=== PATIENT | male | born 1970 | race Caucasian/White ===

== ENCOUNTER 2020-11-06 18:34 | Inpatient (IN) | payer OTHER, SELFPAY ==
[2020-11-06 19:05] VITALS: BP 115/80; PULSE 104; RESP 18; TEMP 37.3; O2SAT 96; BMI 29.5
--- NOTE | 2020-11-06 20:11 | PC.NURSE ---
PT STATES 10MG LIQUID METHADONE ONCE PER DAY. PT GETS 5 TAKE HOMES PER WEEK FROM [facility]PT DOES HAVE METHADONE W/HIM
[2020-11-06 20:35] LABS: Glucose Urine UA NEG (NEG); Leukocyte Esterase Urine NEG (NEG); Nitrite Urine NEG (NEG); PH 7.5 (5.0-8.0); Urine Blood NEG (NEG); Urine Ketones NEG (NEG); Urine Protein NEG (NEG-TRACE)
[2020-11-06 20:36] LABS: Appearance Urine CLEAR; Color Urine YELLOW
--- NOTE | 2020-11-06 20:52 | ED_ITS ---
HPI - Psych General Chief Complaint: Psychiatric Symptoms Stated Complaint: depression Source: patient Mode of arrival: ambulatory History of Present Illness HPI Narrative: 50-year-old male with significant psychiatric history and substance abuse presents with suicidal ideation and severe depression. MD complaint: suicidal ideation, feels depressed and substance abuse Onset (ago): unknown Duration: constant History of same: Yes Relieving factors: none Exacerbating factors: drug use Context: recent drug abuse Associated psychiatric symptoms: depression and suicidal ideation Associated symptoms: denies other symptoms If self harm: admits thoughts of self harm Related Data Home Medications Medication Instructions Recorded Confirmed amitriptyline 1 tab PO BEDTIME 11/06/20 11/06/20 bupropion HCl 1 tab PO DAILY 11/06/20 11/06/20 clonazepam 0.5 mg PO BID 11/06/20 11/06/20 methadone 10 mg PO DAILY 11/06/20 11/06/20 olanzapine 1 tab PO BEDTIME 11/06/20 11/06/20 Allergies Allergy/AdvReac Type Severity Reaction Status Date / Time No Known Allergies Allergy Unverified 02/26/20 14:38 [No Known Allergies*] Review of Systems Review of Systems: Constitutional: No Fever, No Chills ENT/Mouth: No Ear Pain, No Nasal Congestion, No sore throat Eyes: No Eye Pain, No Swelling, No Redness Cardiovascular: No Chest Pain, No SOB Respiratory: No Cough, No Sputum, No Dyspnea Gastrointestinal: No Nausea, No Vomiting, No Diarrhea, No Hematochezia, No Melena Genitourinary: No Dysuria, No Urinary Frequency, No Hematuria Musculoskeletal: No Myalgias Skin: No Skin Lesions, No rash Neuro: No Weakness, No Numbness, No Paresthesias, No Dizziness, No Headache Psych: positive Anxiety, positive Depression, positive SI Heme/Lymph: No Lymphadenopathy Endocrine: No Polyuria, No Polydipsia Yes all other systems are reviewed and are negative [facility] Past Medical History Attestation statement: The following information was validated with the patient. Source: old records reviewed Medical History Anxiety Depression Social History Social History Advance Directives: No Physical Exam Vital Signs: Vital Signs: Last Vital Signs Temp 99.1 F 11/06/20 19:05 Pulse 85 11/06/20 21:58 Resp 18 11/06/20 21:58 BP 116/77 11/06/20 21:58 Pulse Ox 95 11/06/20 21:58 Body Mass Index 29.5 Appearance: Alert. Oriented to self and situation. Moderate psychiatric an emotional distress. Flat affect, pressured speech, slow to respond. Eyes: Pupils equal, round and reactive to light. ENT: Pharynx normal. Neck: Normal inspection. Neck supple. CVS: Normal heart rate and rhythm. Pulses normal. Respiratory: No respiratory distress. Breath sounds normal. Abdomen: Soft and nontender. Skin: Skin warm and dry. Normal skin color. Normal skin turgor. Extremities: Moves all extremities against resistance, gait balanced and coordinated Neuro: No motor deficit. No sensory deficit. Cranial nerves 2-12 intact. Course Course Course Narrative: 50-year-old male presents with suicidal ideation and substance abuse. States that he does not want to live anymore. Was standing on a bridge for several hours contemplating jumping. N consult, TUCKER, and urinalysis pending. Speech is pressured, patient has a flat affect, and is answering very slowly. 11:45 p.m. care team consult complete. Plan of care is for admission to and Section 12. MDM - Psych Differential Diagnosis Differential diagnosis: Likely acute psychosis, suicidal ideation, depression, drug-induced psychotic disorder, substance abuse and mood disorder Lab Data Labs: Lab Results 11/06/20 11/06/20 Range/Units 20:22 20:22 Urine Color YELLOW Urine Appearance CLEAR Urine pH 7.5 (5.0-8.0) Ur Specific [place] 1.010 (1.005-1.025) Urine Protein NEG (NEG-TRACE) MG/DL Urine Glucose (UA) NEG (NEG) MG/DL Urine Ketones NEG (NEG) MG/DL Urine Blood NEG (NEG) Urine Nitrite NEG (NEG) Ur Leukocyte Esterase NEG (NEG) Urine Opiates Screen Not Detected (Not Detect) Ur Barbiturates Screen Not Detected (Not Detect) Ur Phencyclidine Scrn Not Detected (Not Detect) Ur Amphetamines Screen Not Detected (Not Detect) U Benzodiazepines Scrn Not Detected (Not Detect) Urine Cocaine Screen POSITIVE H (Not Detect) U Marijuana (THC) Screen Not Detected (Not Detect) Discharge Plan Discharge Clinical Impression: Acute psychosis, Suicidal ideation, Depression Prescriptions: No Action clonazepam 0.5 mg tablet 0.5 mg PO BID RF: 0 amitriptyline 25 mg tablet 1 tab PO BEDTIME RF: 0 methadone 10 mg/mL Concentrate 10 mg PO DAILY RF: 0 olanzapine 20 mg tablet 1 tab PO BEDTIME RF: 0 bupropion HCl 300 mg tablet extended release 24 hr 1 tab PO DAILY RF: 0
[2020-11-06 21:14] LABS: Amphetamine Screen Urine Not Detected (Not Detect); Barbiturates, Urine Not Detected (Not Detect); Benzodiazepines Screen Urine Not Detected (Not Detect); Cannabinoid Screen Urine Not Detected (Not Detect); Cocaine Screen Urine POSITIVE (Not Detect); Opiate Screen Urine Not Detected (Not Detect); Phencyclidine Screen Urine Not Detected (Not Detect)
[2020-11-06 21:58] VITALS: BP 116/77; PULSE 85; RESP 18; O2SAT 95
[2020-11-06] MEDS: clonazePAM 0.5 MG TABLET PO (22:02)
[2020-11-06] MEDS: OLANZapine 10 MG TABLET 20 MG PO (22:02)
[2020-11-06] MEDS: Amitriptyline HCl 25 MG TABLET PO (22:02)
--- NOTE | 2020-11-06 22:57 | MHC.CARE ---
[facility] unable to provide clinician to evaluate pt until the morning. Crisis carton and can supply supervisor Sarina will notify insurance company that CARE team will be taking over the evaluation.
--- NOTE | 2020-11-06 23:22 | PC.NURSE ---
Citlali (from care team) at bedside speaking with patient.
[2020-11-07] VITALS: BP 98/54; PULSE 100; RESP 20; TEMP 36.6; O2SAT 96
--- NOTE | 2020-11-07 | ECG_ITS ---
Test Reason : MEDICAL CLEARANCE Blood Pressure : / mmHG Vent. Rate : 083 BPM Atrial Rate : 083 BPM P-R Int : 168 ms QRS Dur : 082 ms QT Int : 374 ms P-R-T Axes : 070 071 060 degrees QTc Int : 439 ms Normal sinus rhythm Normal ECG No previous ECGs available Referred By: Bryce Marino Electronically Signed By:ARIE LEVY
--- NOTE | 2020-11-07 01:26 | MHC.CARE ---
Pt evaluated by CARE team with disposition for inpt psych admission. Pt will be presented for admission to in the morning. There are beds available and prior authorization has been approved. See CARE Team Assessment for details.
[2020-11-07 03:42] LABS: COVID-19 Test Negative (Negative); IDNOW Serial# 08D9AD1C
--- NOTE | 2020-11-07 07:32 | PC.NURSE ---
patient appears to be sleeping restfully with even unlabored breaths, appears in no distress
[2020-11-07] MEDS: clonazePAM 0.5 MG TABLET PO ×2 (09:33→20:29)
[2020-11-07] MEDS: buPROPion HCl XL 300 MG TAB.ER.24H PO (09:34)
[2020-11-07 10:53] VITALS: BP 98/56; PULSE 84; RESP 16; O2SAT 97
[2020-11-07 11:14] LABS: Basophils Percent Auto 0.4 % (0-2); Eosinophils Absolute Auto 0.1 X10*3/uL (0.0-0.4); Hematocrit 41.7 % (42-52); Hemoglobin 13.8 g/dl (14.0-18.0); Imm Gran Abs Auto 0.01 X10*3/uL (0.00-0.03); Imm Gran Pct Auto 0.2 % (0.0-0.4); Lymphocytes Absolute Auto 1.9 X10*3/uL (1.2-4.9); Lymphocytes Percent Auto 37.2 % (20-40); MANUAL DIFF FLAG NO; Mean Corpuscular HGB Conc 33.1 g/dl (31.0-36.0); Mean Corpuscular Hemoglobin 28.3 pg (27.0-33.0); Mean Corpuscular Volume 85.5 fL (80-98); Monocytes Absolute Auto 0.6 X10*3/uL (0.1-1.2); Monocytes Percent Auto 10.7 % (2-11); Neutrophils Absolute Auto 2.6 X10*3/uL (2.0-8.3); Neutrophils Percent Auto 50.5 % (45-73); Platelet Count 281 X10*3/uL (160-400); Red Blood Count 4.88 X10*6/uL (4.60-5.80); Red Cell Distribution Width 15.3 % (11.0-16.0); White Blood Count 5.1 X10*3/uL (4.8-10.8)
[2020-11-07 11:39] LABS: Alanine Aminotransferase 19 U/L (0-40); Albumin Level 4.3 g/dL (3.5-5.0); Alkaline Phosphatase 48 U/L (39-117); Anion Gap 12 (12-20); Aspartate Amino Transferase 16 U/L (5-37); Bilirubin Direct 0.2 mg/dL (0.0-0.5); Bilirubin Total 0.4 mg/dL (0.0-1.0); Blood Urea Nitrogen 17 mg/dL (9-16); Calcium 9.5 mg/dL (8.4-10.2); Carbon Dioxide 28 mmol/L (22-29); Chloride 106 mmol/L (96-108); Creatinine Clr Calc Pharmacy 76.8; Estimated Glomerular Filt Rate 59; Glucose Random 125 mg/dL (60-115); Potassium 4.4 mmol/L (3.3-5.1); Sodium 142 mmol/L (135-145); Total Protein 6.9 g/dL (6.5-8.0)
[2020-11-07 12:11] VITALS: BP 107/61; PULSE 73; RESP 16; TEMP 36.7; O2SAT 98
[2020-11-07 13:04] VITALS: BP 109/59; PULSE 78; TEMP 35.8
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
--- NOTE | 2020-11-07 18:15 | PC.ADMIT ---
Pt is a 50 year, white male who presents to from [facility] ED at approx 13:25 on a cv status. Pt is covid -. Utox + for cocaine. Pt was standing [place] the [place] and contemplating jumping off. Pt presents with depressed mood, flat affect, and expressing he does not want to live. Pt has a remote history of two suicide attempts. Pt lose his job six months ago. Pt is presently homeless. Pt has a hx of four previous inpt psych admissions and countless detox admissions. Pt has outpt supports and has methadone maintenance. Pt denied SI/HI/VH/AH during admit. Pt is on [address] WALLER called for orders and notified of admission. Start treatment plan and monitor for safety
[2020-11-07] MEDS: OLANZapine 10 MG TABLET 20 MG PO (20:29)
[2020-11-07] MEDS: Amitriptyline HCl 25 MG TABLET PO (20:29)
[2020-11-07] MEDS: traZODone HCL 50 MG TABLET PO (20:29)
[2020-11-08 06:41] VITALS: BP 119/71; PULSE 91; TEMP 36.7
--- NOTE | 2020-11-08 09:14 | HO.PSYCHPN ---
Subjective Subjective Date of Service: 11/08/20 Reason For Visit: Suicidal Ideation Interim History: The patient was admitted yesterday and he is still dysphoric. He was pleasant with nursing staff and compliant with medications. Today at AM, he was very tired and spent most of the morning in his bed, with no energy. Medication Compliance: Yes Side effects from medications: No Attending Groups: No Review of Systems Review of Systems Yes all other systems are reviewed and are negative Mental Status Exam Mental Status Exam Patient Appearance: Disheveled Patient Orientation: Person, Place, Time and Situation Level of Consciousness: Awake Patient Behavior: Appropriate and Guarded Mood Description: Withdrawn and Depressed Affect Description: Constricted Patient Cognition Impaired: No Ability to Follow Directions: Good Speech Pattern: Clear Memory Description: Intact Hallucinations: None Delusions: Not Present Thought Process: Goal Oriented Thought Content: positive for [place] Depressive Symptoms: Increased Anxiety, Insomnia, Increased Irritability, Changes in Appetite, Feelings of Worthlessness and Feelings of Guilt Judgement: Fair Diagnostics Vital Signs (24Hr): Vital Signs - 24 hr 11/07/20 10:53 11/07/20 12:11 11/07/20 13:04 Temperature 98.0 F 96.5 F L Pulse Rate 84 73 78 Respiratory Rate 16 16 Blood Pressure 98/56 L 107/61 109/59 L Pulse Oximetry 97 98 11/08/20 06:41 Temperature 98.1 F Pulse Rate 91 Respiratory Rate Blood Pressure 119/71 Pulse Oximetry Body Mass Index 29.5 Labs Results: 11/07/20 11:10 11/07/20 11:10 Labs: Laboratory Results - last 48 hr 11/06/20 11/06/20 11/07/20 20:22 20:22 03:08 WBC RBC Hgb Hct MCV MCH MCHC RDW Plt Count MPV Immature Gran % (Auto) Neut % (Auto) Lymph % (Auto) [place] % (Auto) Eos % (Auto) Baso % (Auto) Lymph # (Auto) [place] # (Auto) Eos # (Auto) Baso # (Auto) Abs Immat Gran (auto) Absolute Neuts (auto) Absolute Nucleated RBC Nucleated RBC % (auto) Sodium Potassium Chloride Carbon Dioxide Anion Gap BUN Creatinine Estim Creat Clear Calc Estimated GFR Random Glucose Calcium Total Bilirubin Direct Bilirubin AST ALT Alkaline Phosphatase Total Protein Albumin Urine Color YELLOW Urine Appearance CLEAR Urine pH 7.5 Ur Specific [place] 1.010 Urine Protein NEG Urine Glucose (UA) NEG Urine Ketones NEG Urine Blood NEG Urine Nitrite NEG Ur Leukocyte Esterase NEG Urine Opiates Screen Not Detected Ur Barbiturates Screen Not Detected Ur Phencyclidine Scrn Not Detected Ur Amphetamines Screen Not Detected U Benzodiazepines Scrn Not Detected Urine Cocaine Screen POSITIVE H U Marijuana (THC) Screen Not Detected COVID-19 (KHUSHI) Negative COVID-19 Clin Com See Note 11/07/20 11/07/20 11:10 11:10 WBC 5.1 RBC 4.88 Hgb 13.8 L Hct 41.7 L MCV 85.5 MCH 28.3 MCHC 33.1 RDW 15.3 Plt Count 281 MPV 9.0 L Immature Gran % (Auto) 0.2 Neut % (Auto) 50.5 Lymph % (Auto) 37.2 [place] % (Auto) 10.7 Eos % (Auto) 1.0 Baso % (Auto) 0.4 Lymph # (Auto) 1.9 [place] # (Auto) 0.6 Eos # (Auto) 0.1 Baso # (Auto) 0.0 Abs Immat Gran (auto) 0.01 Absolute Neuts (auto) 2.6 Absolute Nucleated RBC 0.000 Nucleated RBC % (auto) 0.0 Sodium 142 Potassium 4.4 Chloride 106 Carbon Dioxide 28 Anion Gap 12 BUN 17 H Creatinine 1.28 Estim Creat Clear Calc 76.8 Estimated GFR 59 Random Glucose 125 H Calcium 9.5 Total Bilirubin 0.4 Direct Bilirubin 0.2 AST 16 ALT 19 Alkaline Phosphatase 48 Total Protein 6.9 Albumin 4.3 Urine Color Urine Appearance Urine pH Ur Specific [place] Urine Protein Urine Glucose (UA) Urine Ketones Urine Blood Urine Nitrite Ur Leukocyte Esterase Urine Opiates Screen Ur Barbiturates Screen Ur Phencyclidine Scrn Ur Amphetamines Screen U Benzodiazepines Scrn Urine Cocaine Screen U Marijuana (THC) Screen COVID-19 (KHUSHI) COVID-19 Clin Com Medications Medications Current Medications Generic Name Dose Route Start Last Admin Trade Name Freq PRN Reason Stop Dose Admin Acetaminophen 650 mg 11/07/20 09:48 Acetaminophen 325 Mg Tablet PO Q6H PRN Headache/Pain Mild Scale (1-3) Al Hydroxide/Mg Hydroxide 30 ml 11/07/20 09:48 Magnesium Hydrox/Alum Hydrox 30 Ml Oral.Susp PO Q6H PRN Heartburn/Nausea Amitriptyline HCl 25 mg 11/06/20 21:00 11/07/20 20:29 Amitriptyline Hcl 25 Mg Tablet PO 25 mg BEDTIME IRVING Administration Bupropion HCl 300 mg 11/07/20 09:00 11/07/20 09:34 Bupropion Hcl Xl 300 Mg Tab.Er.24h PO 300 mg DAILY IRVING Administration Clonazepam 0.5 mg 11/06/20 21:00 11/07/20 20:29 Clonazepam 0.5 Mg Tablet PO 0.5 mg BID IRVING Administration Hydroxyzine HCl 25 mg 11/07/20 09:48 Hydroxyzine Hcl 25 Mg Tablet PO BEDTIME PRN Anxiety Magnesium Hydroxide 30 ml 11/07/20 09:48 Milk Of Magnesia 30 Ml Oral.Susp PO DAILY PRN Constipation Methadone HCl 10 mg 11/07/20 09:00 11/07/20 10:29 Methadone Hcl 1 Mg/0.1 Ml Oral.Conc PO 10 mg DAILY IRVING Administration Olanzapine 20 mg 11/06/20 21:00 11/07/20 20:29 Olanzapine 10 Mg Tablet PO 20 mg BEDTIME IRVING Administration Trazodone HCl 50 mg 11/07/20 09:48 11/07/20 20:29 Trazodone Hcl 50 Mg Tablet PO 50 mg BEDTIME PRN Administration Insomnia Allergies Allergies Allergy/AdvReac Type Severity Reaction Status Date / Time No Known Allergies Allergy Verified 11/07/20 02:03 [No Known Allergies*] Assessment & Plan Assessment & Plan (1) Mood disorder: Status: Acute Code(s): F39 - Unspecified mood [affective] disorder Assessment and Plan: Adult male with a long history of incarceration, substance abuse and other psychosocial stressors, admitted for suicidal ideation with the plan to jump off a bridge, admitted for exacerbation of depression without a clear stressor. Plan: 1. Re-start medications. 2. Gather collateral information. (2) Cocaine abuse: Status: Acute Code(s): F14.10 - Cocaine abuse, uncomplicated (3) Opioid dependence on agonist therapy: Status: Acute Code(s): F11.20 - Opioid dependence, uncomplicated Greater than 50% of the session was spent on counseling and/or coordination of care Reason for contiued inpatient stay Substantial Risk for: harm to self, rapid decompensation and med/psych decompensation
[2020-11-08] MEDS: buPROPion HCl XL 300 MG TAB.ER.24H PO (10:39)
[2020-11-08] MEDS: clonazePAM 0.5 MG TABLET PO ×3 (10:39→20:00)
[2020-11-08 18:12] VITALS: BP 116/73; PULSE 97; TEMP 36.1
[2020-11-08] MEDS: Amitriptyline HCl 25 MG TABLET PO (20:00)
[2020-11-08] MEDS: OLANZapine 10 MG TABLET 20 MG PO (20:00)
[2020-11-09 08:30] VITALS: BP 115/63; PULSE 85; TEMP 36.8; O2SAT 99
[2020-11-09] MEDS: clonazePAM 1 MG TABLET PO (09:19)
[2020-11-09] MEDS: buPROPion HCl XL 300 MG TAB.ER.24H PO (09:19)
[2020-11-09 17:08] VITALS: BP 110/70; PULSE 82; RESP 18; TEMP 36.5; O2SAT 98
--- NOTE | 2020-11-09 18:26 | P.PNPSI_ITS ---
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 States sleep is an issue-latency sx and ANGE 3-4 times per night. Appetite is OK . Uses cocaine infrequently, but it does make me feel improved. Appt with OP team 11/17. Discussed increasing Amitriptyline to 50 mg (hx of 150 mg and more recently 75 mg HS). Discussed ADHD sx hx as well. No identified precipitant to sx increase per pt report. Medication Compliance: Yes Side effects from medications: No Attending Groups: No Review of Systems Review of Systems Yes all other systems are reviewed and are negative (denies) Psychiatric: Reports anxiety, Reports depression, Reports irritability and Reports suicidal ideation Mental Status Exam Mental Status Exam Patient Appearance: Appropriate Patient Orientation: Person, Place, Time and Situation Level of Consciousness: Awake and Alert Patient Behavior: Talkative Mood Description: Depressed Affect Description: Flat Patient Cognition Impaired: No Ability to Follow Directions: Good Speech Pattern: Spontaneous Speech Memory Description: Episodic Impaired Hallucinations: None Delusions: Not Present Thought Process: Intact and Rumination Thought Content: positive for Intact, positive for Perseveration and positive for Suicidal Ideation Depressive Symptoms: Increased Anxiety Judgement: Fair Diagnostics Vital Signs (24Hr): Vital Signs - 24 hr 11/09/20 08:30 11/09/20 17:08 Temperature 98.2 F 97.7 F Pulse Rate 85 82 Respiratory Rate 18 Blood Pressure 115/63 110/70 Pulse Oximetry 99 98 Body Mass Index 29.5 Labs Results: 11/07/20 11:10 11/07/20 11:10 Medications Medications Current Medications Generic Name Dose Route Start Last Admin Trade Name Freq PRN Reason Stop Dose Admin Acetaminophen 650 mg 11/07/20 09:48 Acetaminophen 325 Mg Tablet PO Q6H PRN Headache/Pain Mild Scale (1-3) Al Hydroxide/Mg Hydroxide 30 ml 11/07/20 09:48 Magnesium Hydrox/Alum Hydrox 30 Ml Oral.Susp PO Q6H PRN Heartburn/Nausea Amitriptyline HCl 25 mg 11/06/20 21:00 11/08/20 20:00 Amitriptyline Hcl 25 Mg Tablet PO 25 mg BEDTIME IRVING Administration Bupropion HCl 300 mg 11/07/20 09:00 11/09/20 09:19 Bupropion Hcl Xl 300 Mg Tab.Er.24h PO 300 mg DAILY IRVING Administration Clonazepam 1 mg 11/09/20 09:00 11/09/20 09:19 Clonazepam 1 Mg Tablet PO 1 mg DAILY IRVING Administration Clonazepam 0.5 mg 11/08/20 21:00 11/08/20 20:00 Clonazepam 0.5 Mg Tablet PO 0.5 mg BEDTIME IRVING Administration Hydroxyzine HCl 25 mg 11/07/20 09:48 Hydroxyzine Hcl 25 Mg Tablet PO BEDTIME PRN Anxiety Magnesium Hydroxide 30 ml 11/07/20 09:48 Milk Of Magnesia 30 Ml Oral.Susp PO DAILY PRN Constipation Methadone HCl 10 mg 11/07/20 09:00 11/09/20 09:21 Methadone Hcl 1 Mg/0.1 Ml Oral.Conc PO 10 mg DAILY IRVING Administration Olanzapine 20 mg 11/06/20 21:00 11/08/20 20:00 Olanzapine 10 Mg Tablet PO 20 mg BEDTIME IRVING Administration Trazodone HCl 50 mg 11/07/20 09:48 11/07/20 20:29 Trazodone Hcl 50 Mg Tablet PO 50 mg BEDTIME PRN Administration Insomnia Allergies Allergies Allergy/AdvReac Type Severity Reaction Status Date / Time No Known Allergies Allergy Verified 11/07/20 02:03 [No Known Allergies*] Assessment & Plan Assessment & Plan (1) Mood disorder: Status: Acute Code(s): F39 - Unspecified mood [affective] disorder Assessment and Plan: Adult male with a long history of incarceration, substance abuse and other psychosocial stressors, admitted for suicidal ideation with the plan to jump off a bridge, admitted for exacerbation of depression without a clear stressor. Plan: 1. Increase Amitriptyline to 50 mg HS 2. Gather collateral information. (2) Cocaine abuse: Status: Acute Code(s): F14.10 - Cocaine abuse, uncomplicated (3) Opioid dependence on agonist therapy: Status: Acute Code(s): F11.20 - Opioid dependence, uncomplicated Greater than 50% of the session was spent on counseling and/or coordination of care Reason for contiued inpatient stay Substantial Risk for: harm to self and rapid decompensation
[2020-11-09] MEDS: OLANZapine 10 MG TABLET 20 MG PO (20:04)
[2020-11-09] MEDS: Amitriptyline HCl 25 MG TABLET PO (20:04)
[2020-11-09] MEDS: clonazePAM 0.5 MG TABLET PO (20:04)
[2020-11-10 06:00] VITALS: BP 104/60; PULSE 94; RESP 18; TEMP 35.7; O2SAT 97
[2020-11-10] MEDS: buPROPion HCl XL 300 MG TAB.ER.24H PO (09:28)
[2020-11-10] MEDS: clonazePAM 1 MG TABLET PO (09:28)
[2020-11-10 17:15] VITALS: BP 110/65; PULSE 79; TEMP 36.1
--- NOTE | 2020-11-10 19:41 | P.PNPSI_ITS ---
Subjective Subjective Date of Service: 11/10/20 Reason For Visit: Suicidal Ideation Subjective Notes: Conditional Voluntary Healthcare Proxy: No Guardianship: No Medical Problems Affecting Mental Status: No Interim History: Review of previous medication trials including current medications-wellbutrin, klonopin, clonidine, gabapentin, atarax, olanzapine, trileptal, trazodone, prazosin. Discussed some of the stressors he attributes to his depression and SI including homelessness-discussed possibly going to [facility] and moving from there to [facility]. Discussed Sertraline trial. Medication Compliance: Yes Side effects from medications: No Attending Groups: Intermittent Review of Systems Review of Systems Yes all other systems are reviewed and are negative (denies) Psychiatric: Reports anxiety, Reports depression, Reports difficulty concentrating, Reports hopelessness, Reports irritability, Reports anhedonia and Reports suicidal ideation Mental Status Exam Mental Status Exam Patient Appearance: Appropriate Patient Orientation: Person, Place, Time and Situation Level of Consciousness: Awake and Alert Patient Behavior: Talkative Mood Description: Constricted and Depressed Affect Description: Constricted Patient Cognition Impaired: No Ability to Follow Directions: Good Speech Pattern: Spontaneous Speech Memory Description: Intact Hallucinations: None Delusions: Not Present Thought Process: Rumination Thought Content: positive for Perseveration and positive for Suicidal Ideation Depressive Symptoms: Increased Anxiety, Increased Irritability, Hopelessness, Unhappiness, Increased Fatigue, Thoughts of /Suicide, Loss of Energy and Difficulty Concentrating Judgement: Fair Diagnostics Vital Signs (24Hr): Vital Signs - 24 hr 11/10/20 06:00 Temperature 96.2 F L Pulse Rate 94 Respiratory Rate 18 Blood Pressure 104/60 Pulse Oximetry 97 Body Mass Index 29.5 Labs Results: 11/07/20 11:10 11/07/20 11:10 Medications Medications Current Medications Generic Name Dose Route Start Last Admin Trade Name Freq PRN Reason Stop Dose Admin Acetaminophen 650 mg 11/07/20 09:48 Acetaminophen 325 Mg Tablet PO Q6H PRN Headache/Pain Mild Scale (1-3) Al Hydroxide/Mg Hydroxide 30 ml 11/07/20 09:48 Magnesium Hydrox/Alum Hydrox 30 Ml Oral.Susp PO Q6H PRN Heartburn/Nausea Amitriptyline HCl 25 mg 11/06/20 21:00 11/09/20 20:04 Amitriptyline Hcl 25 Mg Tablet PO 25 mg BEDTIME IRVING Administration Bupropion HCl 300 mg 11/07/20 09:00 11/10/20 09:28 Bupropion Hcl Xl 300 Mg Tab.Er.24h PO 300 mg DAILY IRVING Administration Clonazepam 1 mg 11/09/20 09:00 11/10/20 09:28 Clonazepam 1 Mg Tablet PO 1 mg DAILY IRVING Administration Clonazepam 0.5 mg 11/08/20 21:00 11/09/20 20:04 Clonazepam 0.5 Mg Tablet PO 0.5 mg BEDTIME IRVING Administration Hydroxyzine HCl 25 mg 11/07/20 09:48 Hydroxyzine Hcl 25 Mg Tablet PO BEDTIME PRN Anxiety Magnesium Hydroxide 30 ml 11/07/20 09:48 Milk Of Magnesia 30 Ml Oral.Susp PO DAILY PRN Constipation Methadone HCl 10 mg 11/07/20 09:00 11/10/20 09:28 Methadone Hcl 1 Mg/0.1 Ml Oral.Conc PO 10 mg DAILY IRVING Administration Olanzapine 20 mg 11/06/20 21:00 11/09/20 20:04 Olanzapine 10 Mg Tablet PO 20 mg BEDTIME IRVING Administration Trazodone HCl 50 mg 11/07/20 09:48 11/07/20 20:29 Trazodone Hcl 50 Mg Tablet PO 50 mg BEDTIME PRN Administration Insomnia Allergies Allergies Allergy/AdvReac Type Severity Reaction Status Date / Time No Known Allergies Allergy Verified 11/07/20 02:03 [No Known Allergies*] Assessment & Plan Assessment & Plan (1) Mood disorder: Status: Acute Code(s): F39 - Unspecified mood [affective] disorder Assessment and Plan: Adult male with a long history of incarceration, substance abuse and other psychosocial stressors, admitted for suicidal ideation with the plan to jump off a bridge, admitted for exacerbation of depression without a clear stressor. Plan: 1. Sertraline 25 mg daily 2. Gather collateral information. 3. Change timing of Klonopin to 1200. (2) Cocaine abuse: Status: Acute Code(s): F14.10 - Cocaine abuse, uncomplicated (3) Opioid dependence on agonist therapy: Status: Acute Code(s): F11.20 - Opioid dependence, uncomplicated Greater than 50% of the session was spent on counseling and/or coordination of care Reason for contiued inpatient stay Substantial Risk for: harm to self, inability to function and rapid decompensation
[2020-11-10] MEDS: clonazePAM 0.5 MG TABLET PO (20:03)
[2020-11-10] MEDS: OLANZapine 10 MG TABLET 20 MG PO (20:03)
[2020-11-10] MEDS: Amitriptyline HCl 25 MG TABLET 50 MG PO (20:03)
[2020-11-11 06:15] VITALS: BP 89/57; PULSE 97; RESP 18; TEMP 36.9; O2SAT 96
[2020-11-11 07:00] VITALS: BMI 30.6
[2020-11-11] MEDS: buPROPion HCl XL 300 MG TAB.ER.24H PO (10:41)
[2020-11-11] MEDS: Sertraline HCL 25 MG TABLET PO (10:41)
[2020-11-11] MEDS: clonazePAM 1 MG TABLET PO (11:25)
[2020-11-11 18:00] VITALS: BP 103/72; PULSE 84; TEMP 36.2
--- NOTE | 2020-11-11 19:14 | HO.PSYCHPN ---
Subjective Subjective Date of Service: 11/11/20 Reason For Visit: Suicidal Ideation Subjective Notes: Conditional Voluntary Healthcare Proxy: No Guardianship: No Medical Problems Affecting Mental Status: No Interim History: Tolerating amitriptyline increase and initiation of Sertraline. Medicine/timing review with pt today Medication Compliance: Yes Side effects from medications: No Attending Groups: Yes Review of Systems Review of Systems Yes all other systems are reviewed and are negative (denies) Psychiatric: Reports depression Mental Status Exam Mental Status Exam Patient Appearance: Appropriate Patient Orientation: Person, Place, Time and Situation Level of Consciousness: Alert Patient Behavior: Appropriate, Talkative and Cooperative Mood Description: Depressed Affect Description: Flat Patient Cognition Impaired: No Ability to Follow Directions: Good Speech Pattern: Spontaneous Speech Memory Description: Intact Hallucinations: None Delusions: Not Present Thought Process: Intact Thought Content: positive for Intact Depressive Symptoms: Hopelessness, Unhappiness, Increased Fatigue and Thoughts of /Suicide Judgement: Fair Diagnostics Vital Signs (24Hr): Vital Signs - 24 hr 11/11/20 06:15 Temperature 98.5 F Pulse Rate 97 Respiratory Rate 18 Blood Pressure 89/57 L Pulse Oximetry 96 Body Mass Index 30.6 Labs Results: 11/07/20 11:10 11/07/20 11:10 Medications Medications Current Medications Generic Name Dose Route Start Last Admin Trade Name Freq PRN Reason Stop Dose Admin Acetaminophen 650 mg 11/07/20 09:48 Acetaminophen 325 Mg Tablet PO Q6H PRN Headache/Pain Mild Scale (1-3) Al Hydroxide/Mg Hydroxide 30 ml 11/07/20 09:48 Magnesium Hydrox/Alum Hydrox 30 Ml Oral.Susp PO Q6H PRN Heartburn/Nausea Amitriptyline HCl 50 mg 11/10/20 21:00 11/10/20 20:03 Amitriptyline Hcl 25 Mg Tablet PO 50 mg BEDTIME IRVING Administration Bupropion HCl 300 mg 11/07/20 09:00 11/11/20 10:41 Bupropion Hcl Xl 300 Mg Tab.Er.24h PO 300 mg DAILY IRVING Administration Clonazepam 1 mg 11/12/20 09:00 Clonazepam 1 Mg Tablet PO DAILY IRVING Clonazepam 0.5 mg 11/11/20 13:00 11/11/20 12:38 Clonazepam 0.5 Mg Tablet PO Not Given 1200 IRVING Hydroxyzine HCl 25 mg 11/07/20 09:48 Hydroxyzine Hcl 25 Mg Tablet PO BEDTIME PRN Anxiety Magnesium Hydroxide 30 ml 11/07/20 09:48 Milk Of Magnesia 30 Ml Oral.Susp PO DAILY PRN Constipation Methadone HCl 10 mg 11/07/20 09:00 11/11/20 10:41 Methadone Hcl 1 Mg/0.1 Ml Oral.Conc PO 10 mg DAILY IRVING Administration Olanzapine 20 mg 11/06/20 21:00 11/10/20 20:03 Olanzapine 10 Mg Tablet PO 20 mg BEDTIME IRVING Administration Sertraline HCl 25 mg 11/11/20 09:00 11/11/20 10:41 Sertraline Hcl 25 Mg Tablet PO 25 mg DAILY IRVING Administration Trazodone HCl 50 mg 11/07/20 09:48 11/07/20 20:29 Trazodone Hcl 50 Mg Tablet PO 50 mg BEDTIME PRN Administration Insomnia Allergies Allergies Allergy/AdvReac Type Severity Reaction Status Date / Time No Known Allergies Allergy Verified 11/07/20 02:03 [No Known Allergies*] Assessment & Plan Assessment & Plan (1) Mood disorder: Status: Acute Code(s): F39 - Unspecified mood [affective] disorder Assessment and Plan: Adult male with a long history of incarceration, substance abuse and other psychosocial stressors, admitted for suicidal ideation with the plan to jump off a bridge, admitted for exacerbation of depression without a clear stressor. Plan: 1. Sertraline 25 mg daily 2. Gather collateral information. 3. Change timing of Klonopin to 1200. (2) Cocaine abuse: Status: Acute Code(s): F14.10 - Cocaine abuse, uncomplicated (3) Opioid dependence on agonist therapy: Status: Acute Code(s): F11.20 - Opioid dependence, uncomplicated Greater than 50% of the session was spent on counseling and/or coordination of care Reason for contiued inpatient stay Substantial Risk for: harm to self, inability to function and rapid decompensation
[2020-11-11] MEDS: OLANZapine 10 MG TABLET 20 MG PO (19:59)
[2020-11-11] MEDS: Amitriptyline HCl 25 MG TABLET 50 MG PO (19:59)
[2020-11-12 06:30] VITALS: BP 101/64; PULSE 75; RESP 18; TEMP 36.6; O2SAT 97
[2020-11-12] MEDS: Sertraline HCL 25 MG TABLET PO (09:43)
[2020-11-12] MEDS: buPROPion HCl XL 300 MG TAB.ER.24H PO (09:43)
[2020-11-12] MEDS: clonazePAM 1 MG TABLET PO (09:43)
[2020-11-12] MEDS: clonazePAM 0.5 MG TABLET PO (12:34)
--- NOTE | 2020-11-12 17:29 | P.PNPSI_ITS ---
Subjective Subjective Date of Service: 11/12/20 Reason For Visit: Suicidal Ideation Subjective Notes: Conditional Voluntary Healthcare Proxy: No Guardianship: No Medical Problems Affecting Mental Status: No Interim History: Tolerating medication changes/increases. Hopeful he will be accepted at the [facility] as it will assist him in admission to the [facility]. Medication Compliance: Yes Side effects from medications: No Attending Groups: Yes Review of Systems Review of Systems Yes all other systems are reviewed and are negative Psychiatric: Reports anxiety and Reports depression Mental Status Exam Mental Status Exam Patient Appearance: Appropriate Patient Orientation: Person, Place, Time and Situation Level of Consciousness: Awake and Alert Patient Behavior: Talkative Mood Description: Flat Affect Description: Flat Patient Cognition Impaired: No Ability to Follow Directions: Good Speech Pattern: Spontaneous Speech Memory Description: Intact Hallucinations: None Delusions: Not Present Thought Process: Intact Thought Content: positive for Intact Depressive Symptoms: Increased Anxiety, Loss of Int. in Activity, Feelings of Worthlessness, Hopelessness, Isolating-Friends/Family, Feelings of Guilt, Unhappiness, Increased Fatigue, Thoughts of /Suicide, Low Self Esteem, Loss of Energy and Difficulty Concentrating Judgement: Fair Diagnostics Vital Signs (24Hr): Vital Signs - 24 hr 11/11/20 18:00 11/12/20 06:30 Temperature 97.2 F 98 F Pulse Rate 84 75 Respiratory Rate 18 Blood Pressure 103/72 101/64 Pulse Oximetry 97 Body Mass Index 30.6 Labs Results: 11/07/20 11:10 11/07/20 11:10 Medications Medications Current Medications Generic Name Dose Route Start Last Admin Trade Name Freq PRN Reason Stop Dose Admin Acetaminophen 650 mg 11/07/20 09:48 Acetaminophen 325 Mg Tablet PO Q6H PRN Headache/Pain Mild Scale (1-3) Al Hydroxide/Mg Hydroxide 30 ml 11/07/20 09:48 Magnesium Hydrox/Alum Hydrox 30 Ml Oral.Susp PO Q6H PRN Heartburn/Nausea Amitriptyline HCl 50 mg 11/10/20 21:00 11/11/20 19:59 Amitriptyline Hcl 25 Mg Tablet PO 50 mg BEDTIME IRVING Administration Bupropion HCl 300 mg 11/07/20 09:00 11/12/20 09:43 Bupropion Hcl Xl 300 Mg Tab.Er.24h PO 300 mg DAILY IRVING Administration Clonazepam 1 mg 11/12/20 09:00 11/12/20 09:43 Clonazepam 1 Mg Tablet PO 1 mg DAILY IRVING Administration Clonazepam 0.5 mg 11/11/20 13:00 11/12/20 12:34 Clonazepam 0.5 Mg Tablet PO 0.5 mg 1200 IRVING Administration Hydroxyzine HCl 25 mg 11/07/20 09:48 Hydroxyzine Hcl 25 Mg Tablet PO BEDTIME PRN Anxiety Magnesium Hydroxide 30 ml 11/07/20 09:48 Milk Of Magnesia 30 Ml Oral.Susp PO DAILY PRN Constipation Methadone HCl 10 mg 11/07/20 09:00 11/12/20 09:43 Methadone Hcl 1 Mg/0.1 Ml Oral.Conc PO 10 mg DAILY IRVING Administration Olanzapine 20 mg 11/06/20 21:00 11/11/20 19:59 Olanzapine 10 Mg Tablet PO 20 mg BEDTIME IRVING Administration Sertraline HCl 25 mg 11/11/20 09:00 11/12/20 09:43 Sertraline Hcl 25 Mg Tablet PO 25 mg DAILY IRVING Administration Trazodone HCl 50 mg 11/07/20 09:48 11/07/20 20:29 Trazodone Hcl 50 Mg Tablet PO 50 mg BEDTIME PRN Administration Insomnia Allergies Allergies Allergy/AdvReac Type Severity Reaction Status Date / Time No Known Allergies Allergy Verified 11/07/20 02:03 [No Known Allergies*] Assessment & Plan Assessment & Plan (1) Mood disorder: Status: Acute Code(s): F39 - Unspecified mood [affective] disorder Assessment and Plan: Adult male with a long history of incarceration, substance abuse and other psychosocial stressors, admitted for suicidal ideation with the plan to jump off a bridge, admitted for exacerbation of depression without a clear stressor. Plan: 1. Continue current plan of care. (2) Cocaine abuse: Status: Acute Code(s): F14.10 - Cocaine abuse, uncomplicated (3) Opioid dependence on agonist therapy: Status: Acute Code(s): F11.20 - Opioid dependence, uncomplicated Greater than 50% of the session was spent on counseling and/or coordination of care Reason for contiued inpatient stay Substantial Risk for: harm to self, inability to function and rapid decompensation
[2020-11-12] MEDS: OLANZapine 10 MG TABLET 20 MG PO (20:02)
[2020-11-12] MEDS: Amitriptyline HCl 25 MG TABLET 50 MG PO (20:03)
[2020-11-13 06:00] VITALS: BP 99/58; PULSE 84; RESP 16; TEMP 36.7; O2SAT 97
[2020-11-13] MEDS: Sertraline HCL 25 MG TABLET PO (08:43)
[2020-11-13] MEDS: buPROPion HCl XL 300 MG TAB.ER.24H PO (08:43)
[2020-11-13] MEDS: clonazePAM 1 MG TABLET PO (08:43)
[2020-11-13] MEDS: clonazePAM 0.5 MG TABLET PO (11:34)
[2020-11-13 18:00] VITALS: BP 135/67; PULSE 92; TEMP 36.3
[2020-11-13] MEDS: OLANZapine 10 MG TABLET 20 MG PO (20:08)
[2020-11-13] MEDS: Amitriptyline HCl 25 MG TABLET 50 MG PO (20:09)
--- NOTE | 2020-11-13 20:20 | HO.PSYCHPN ---
Subjective Subjective Date of Service: 11/13/20 Reason For Visit: Suicidal Ideation Subjective Notes: Conditional Voluntary Healthcare Proxy: No Guardianship: No Medical Problems Affecting Mental Status: No Interim History: Tolerating recent increases. Discussed Sertraline titration which he agrees to. Visable within milieu. Active with activities and with peers, ?possibly a sign of improvement. Smiling at times. Denies adverse effects of recent changes. Medication Compliance: Yes Side effects from medications: No Attending Groups: Yes Review of Systems Psychiatric: Reports anxiety, Reports depression and Reports suicidal ideation (denies) Mental Status Exam Mental Status Exam Patient Orientation: Person, Place, Time and Situation Level of Consciousness: Alert Patient Behavior: Appropriate and Cooperative Mood Description: Constricted Affect Description: Constricted Patient Cognition Impaired: No Speech Pattern: Clear and Appropriate Memory Description: Intact Hallucinations: None Delusions: Not Present Thought Process: Intact Thought Content: positive for Intact Depressive Symptoms: Increased Anxiety, Hopelessness, Thoughts of /Suicide (denies) and Low Self Esteem Judgement: Fair Diagnostics Vital Signs (24Hr): Vital Signs - 24 hr 11/13/20 06:00 Temperature 98.1 F Pulse Rate 84 Respiratory Rate 16 Blood Pressure 99/58 L Pulse Oximetry 97 Body Mass Index 30.6 Labs Results: 11/07/20 11:10 11/07/20 11:10 Medications Medications Current Medications Generic Name Dose Route Start Last Admin Trade Name Tuckerq PRN Reason Stop Dose Admin Acetaminophen 650 mg 11/07/20 09:48 Acetaminophen 325 Mg Tablet PO Q6H PRN Headache/Pain Mild Scale (1-3) Al Hydroxide/Mg Hydroxide 30 ml 11/07/20 09:48 Magnesium Hydrox/Alum Hydrox 30 Ml Oral.Susp PO Q6H PRN Heartburn/Nausea Amitriptyline HCl 50 mg 11/10/20 21:00 11/13/20 20:09 Amitriptyline Hcl 25 Mg Tablet PO 50 mg BEDTIME IRVING Administration Bupropion HCl 300 mg 11/07/20 09:00 11/13/20 08:43 Bupropion Hcl Xl 300 Mg Tab.Er.24h PO 300 mg DAILY IRVING Administration Clonazepam 1 mg 11/12/20 09:00 11/13/20 08:43 Clonazepam 1 Mg Tablet PO 1 mg DAILY IRVING Administration Clonazepam 0.5 mg 11/11/20 13:00 11/13/20 11:34 Clonazepam 0.5 Mg Tablet PO 0.5 mg 1200 IRVING Administration Hydroxyzine HCl 25 mg 11/07/20 09:48 Hydroxyzine Hcl 25 Mg Tablet PO BEDTIME PRN Anxiety Magnesium Hydroxide 30 ml 11/07/20 09:48 Milk Of Magnesia 30 Ml Oral.Susp PO DAILY PRN Constipation Methadone HCl 10 mg 11/07/20 09:00 11/13/20 08:43 Methadone Hcl 1 Mg/0.1 Ml Oral.Conc PO 10 mg DAILY IRVING Administration Olanzapine 20 mg 11/06/20 21:00 11/13/20 20:08 Olanzapine 10 Mg Tablet PO 20 mg BEDTIME IRVING Administration Sertraline HCl 50 mg 11/14/20 09:00 Sertraline Hcl 50 Mg Tablet PO DAILY IRVING Trazodone HCl 50 mg 11/07/20 09:48 11/07/20 20:29 Trazodone Hcl 50 Mg Tablet PO 50 mg BEDTIME PRN Administration Insomnia Allergies Allergies Allergy/AdvReac Type Severity Reaction Status Date / Time No Known Allergies Allergy Verified 11/07/20 02:03 [No Known Allergies*] Assessment & Plan Assessment & Plan (1) Mood disorder: Status: Acute Code(s): F39 - Unspecified mood [affective] disorder Assessment and Plan: Adult male with a long history of incarceration, substance abuse and other psychosocial stressors, admitted for suicidal ideation with the plan to jump off a bridge, admitted for exacerbation of depression without a clear stressor. Plan: 1. Increase Sertraline to 50 mg daily (2) Cocaine abuse: Status: Acute Code(s): F14.10 - Cocaine abuse, uncomplicated (3) Opioid dependence on agonist therapy: Status: Acute Code(s): F11.20 - Opioid dependence, uncomplicated Greater than 50% of the session was spent on counseling and/or coordination of care Reason for contiued inpatient stay Substantial Risk for: harm to self, inability to function and rapid decompensation
[2020-11-14 06:00] VITALS: BP 95/58; PULSE 69; RESP 18; TEMP 36.6; O2SAT 97
[2020-11-14] MEDS: clonazePAM 1 MG TABLET PO (08:53)
[2020-11-14] MEDS: Sertraline HCL 50 MG TABLET PO (08:53)
[2020-11-14] MEDS: buPROPion HCl XL 300 MG TAB.ER.24H PO (08:53)
[2020-11-14] MEDS: clonazePAM 0.5 MG TABLET PO (12:41)
[2020-11-14] MEDS: Acetaminophen 325 MG TABLET 650 MG PO (12:43)
--- NOTE | 2020-11-14 17:51 | HO.PSYCHPN ---
Subjective Subjective Date of Service: 11/14/20 Reason For Visit: Suicidal Ideation Subjective Notes: Conditional Voluntary Healthcare Proxy: No Guardianship: No Medical Problems Affecting Mental Status: No Interim History: Pt discussing discharge for 11/16. Plans to stay with his uncle. Therapy appt for 11/24 and med appt 11/17. Methadone maintenance with [facility]. Tolerating recent increase in antidepressants and feeling some improvements. More visable and interactive in the milieu. Medication Compliance: Yes Side effects from medications: No Attending Groups: Yes Review of Systems Review of Systems Yes all other systems are reviewed and are negative Psychiatric: Reports anxiety, Reports depression and Reports suicidal ideation (denies) Mental Status Exam Mental Status Exam Patient Appearance: Appropriate Patient Orientation: Person, Place, Time and Situation Level of Consciousness: Alert Patient Behavior: Appropriate, Talkative and Cooperative Mood Description: Flat Affect Description: Flat Patient Cognition Impaired: No Ability to Follow Directions: Good Speech Pattern: Spontaneous Speech Memory Description: Intact Hallucinations: None Delusions: Not Present Thought Process: Intact Thought Content: positive for Intact Judgement: Good Diagnostics Vital Signs (24Hr): Vital Signs - 24 hr 11/13/20 18:00 11/14/20 06:00 Temperature 97.3 F 97.9 F Pulse Rate 92 69 Respiratory Rate 18 Blood Pressure 135/67 95/58 L Pulse Oximetry 97 Body Mass Index 30.6 Labs Results: 11/07/20 11:10 11/07/20 11:10 Medications Medications Current Medications Generic Name Dose Route Start Last Admin Trade Name Freq PRN Reason Stop Dose Admin Acetaminophen 650 mg 11/07/20 09:48 11/14/20 12:43 Acetaminophen 325 Mg Tablet PO 650 mg Q6H PRN Administration Headache/Pain Mild Scale (1-3) Al Hydroxide/Mg Hydroxide 30 ml 11/07/20 09:48 Magnesium Hydrox/Alum Hydrox 30 Ml Oral.Susp PO Q6H PRN Heartburn/Nausea Amitriptyline HCl 50 mg 11/10/20 21:00 11/13/20 20:09 Amitriptyline Hcl 25 Mg Tablet PO 50 mg BEDTIME IRVING Administration Bupropion HCl 300 mg 11/07/20 09:00 11/14/20 08:53 Bupropion Hcl Xl 300 Mg Tab.Er.24h PO 300 mg DAILY IRVING Administration Clonazepam 1 mg 11/12/20 09:00 11/14/20 08:53 Clonazepam 1 Mg Tablet PO 1 mg DAILY IRVING Administration Clonazepam 0.5 mg 11/11/20 13:00 11/14/20 12:41 Clonazepam 0.5 Mg Tablet PO 0.5 mg 1200 IRVING Administration Hydroxyzine HCl 25 mg 11/07/20 09:48 Hydroxyzine Hcl 25 Mg Tablet PO BEDTIME PRN Anxiety Magnesium Hydroxide 30 ml 11/07/20 09:48 Milk Of Magnesia 30 Ml Oral.Susp PO DAILY PRN Constipation Methadone HCl 10 mg 11/07/20 09:00 11/14/20 08:53 Methadone Hcl 1 Mg/0.1 Ml Oral.Conc PO 10 mg DAILY IRVING Administration Olanzapine 20 mg 11/06/20 21:00 11/13/20 20:08 Olanzapine 10 Mg Tablet PO 20 mg BEDTIME IRVING Administration Sertraline HCl 50 mg 11/14/20 09:00 11/14/20 08:53 Sertraline Hcl 50 Mg Tablet PO 50 mg DAILY IRVING Administration Trazodone HCl 50 mg 11/07/20 09:48 11/07/20 20:29 Trazodone Hcl 50 Mg Tablet PO 50 mg BEDTIME PRN Administration Insomnia Allergies Allergies Allergy/AdvReac Type Severity Reaction Status Date / Time No Known Allergies Allergy Verified 11/07/20 02:03 [No Known Allergies*] Assessment & Plan Assessment & Plan (1) Mood disorder: Status: Acute Code(s): F39 - Unspecified mood [affective] disorder Assessment and Plan: Adult male with a long history of incarceration, substance abuse and other psychosocial stressors, admitted for suicidal ideation with the plan to jump off a bridge, admitted for exacerbation of depression without a clear stressor. Plan: 1. Continue current regime. (2) Cocaine abuse: Status: Acute Code(s): F14.10 - Cocaine abuse, uncomplicated (3) Opioid dependence on agonist therapy: Status: Acute Code(s): F11.20 - Opioid dependence, uncomplicated Assessment and Plan: Pt interested in Methadone tapering. He would like to discuss with out addictions team. Consult ordered. Greater than 50% of the session was spent on counseling and/or coordination of care Reason for contiued inpatient stay Substantial Risk for: harm to self, inability to function and rapid decompensation
[2020-11-14 18:00] VITALS: BP 131/69; PULSE 103; TEMP 36.8
[2020-11-14] MEDS: OLANZapine 10 MG TABLET 20 MG PO (19:59)
[2020-11-14] MEDS: Amitriptyline HCl 25 MG TABLET 50 MG PO (20:00)
[2020-11-15 06:00] VITALS: BP 130/80; PULSE 76; RESP 18; TEMP 37; O2SAT 99
[2020-11-15] MEDS: clonazePAM 1 MG TABLET PO (08:43)
[2020-11-15] MEDS: Sertraline HCL 50 MG TABLET PO (08:43)
[2020-11-15] MEDS: buPROPion HCl XL 300 MG TAB.ER.24H PO (08:43)
--- NOTE | 2020-11-15 10:41 | HO.PSYCHPN ---
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 he has no complaints and no requests will wait to discuss treatment further when primary provider returns Mental Status Exam Mental Status Exam Narrative: Patient Appearance: Appropriate Patient Orientation: Person, Place, Time and Situation Level of Consciousness: Awake and Alert Patient Behavior: Appropriate Mood Description: Calm Affect Description: Calm Patient Cognition Impaired: No Ability to Follow Directions: fair Speech Pattern: Clear Thought Content: positive for Intact and positive for Goal Oriented Judgement: Fair Diagnostics Vital Signs (24Hr): Vital Signs - 24 hr 11/14/20 18:00 11/15/20 06:00 Temperature 98.3 F 98.6 F Pulse Rate 103 H 76 Respiratory Rate 18 Blood Pressure 131/69 130/80 Pulse Oximetry 99 Body Mass Index 30.6 Labs Results: 11/07/20 11:10 11/07/20 11:10 Medications Medications Current Medications Generic Name Dose Route Start Last Admin Trade Name Freq PRN Reason Stop Dose Admin Acetaminophen 650 mg 11/07/20 09:48 11/14/20 12:43 Acetaminophen 325 Mg Tablet PO 650 mg Q6H PRN Administration Headache/Pain Mild Scale (1-3) Al Hydroxide/Mg Hydroxide 30 ml 11/07/20 09:48 Magnesium Hydrox/Alum Hydrox 30 Ml Oral.Susp PO Q6H PRN Heartburn/Nausea Amitriptyline HCl 50 mg 11/10/20 21:00 11/14/20 20:00 Amitriptyline Hcl 25 Mg Tablet PO 50 mg BEDTIME IRVING Administration Bupropion HCl 300 mg 11/07/20 09:00 11/15/20 08:43 Bupropion Hcl Xl 300 Mg Tab.Er.24h PO 300 mg DAILY IRVING Administration Clonazepam 1 mg 11/12/20 09:00 11/15/20 08:43 Clonazepam 1 Mg Tablet PO 1 mg DAILY IRVING Administration Clonazepam 0.5 mg 11/11/20 13:00 11/14/20 12:41 Clonazepam 0.5 Mg Tablet PO 0.5 mg 1200 IRVING Administration Hydroxyzine HCl 25 mg 11/07/20 09:48 Hydroxyzine Hcl 25 Mg Tablet PO BEDTIME PRN Anxiety Magnesium Hydroxide 30 ml 11/07/20 09:48 Milk Of Magnesia 30 Ml Oral.Susp PO DAILY PRN Constipation Methadone HCl 10 mg 11/07/20 09:00 06/07/21 08:43 Methadone Hcl 1 Mg/0.1 Ml Oral.Conc PO 10 mg DAILY IRVING Administration Olanzapine 20 mg 11/06/20 21:00 11/14/20 19:59 Olanzapine 10 Mg Tablet PO 20 mg BEDTIME IRVING Administration Sertraline HCl 50 mg 11/14/20 09:00 11/15/20 08:43 Sertraline Hcl 50 Mg Tablet PO 50 mg DAILY IRVING Administration Trazodone HCl 50 mg 11/07/20 09:48 11/07/20 20:29 Trazodone Hcl 50 Mg Tablet PO 50 mg BEDTIME PRN Administration Insomnia Allergies Allergies Allergy/AdvReac Type Severity Reaction Status Date / Time No Known Allergies Allergy Verified 11/07/20 02:03 [No Known Allergies*] Assessment & Plan Assessment & Plan (1) Mood disorder: Status: Acute Code(s): F39 - Unspecified mood [affective] disorder 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 Plan: 1. Continue current regime. (2) Cocaine abuse: Status: Acute Code(s): F14.10 - Cocaine abuse, uncomplicated (3) Opioid dependence on agonist therapy: Status: Acute Code(s): F11.20 - Opioid dependence, uncomplicated Assessment and Plan: Pt interested in Methadone tapering. He would like to discuss with out addictions team. Consult ordered. Greater than 50% of the session was spent on counseling and/or coordination of care Reason for contiued inpatient stay Substantial Risk for: med/psych decompensation
[2020-11-15] MEDS: clonazePAM 0.5 MG TABLET PO (11:10)
--- NOTE | 2020-11-15 13:12 | HO.ADDICT_ITS ---
History of Present Illness Date of Service: 11/15/2020 Chief Complaint: Suicidal Ideation Reason for Consult: OUD, currently on methadone, requesting further taper Requesting physician: Cynthia Ceron Discussed with referring provider: No Sources of Information: patient interviewed and chart reviewed HPI Narrative: Patient is a 50 year old male with opioid use disorder on methadone treatment outpt via [facility] [employer]. Currently psychiatrically admitted with depression and SI. Consult requested as patient is requesting taper in current dose. Patient seen in room 511. Awake, alert, laying in bed, engaged in interview. Patient reports he has been tapering methadone dose for over a year (started off at 120mg) Has been on current dose of 10mg for over 3 weeks. Denies any withdrawal sx. Requesting to taper dose by one milligram while here. Past Psychiatric History: The patient has at least 4 prior admissions for cazares icidality, there are 2 prior admissions at [facility] a few years ago with a similar presentation. He follows outpatient services at a local clinic. He takes Methadone for years Medical Evaluation Reviewed: Yes Review of Systems Review of Systems Yes all other systems are reviewed and are negative Diagnostics Vital Signs (24Hr): Vital Signs - 24 hr 11/14/20 18:00 11/15/20 06:00 Temperature 98.3 F 98.6 F Pulse Rate 103 H 76 Respiratory Rate 18 Blood Pressure 131/69 130/80 Pulse Oximetry 99 Body Mass Index 30.6 Labs Results: 11/07/20 11:10 11/07/20 11:10 Mental Status Exam Mental Status Exam Patient Appearance: Appropriate Patient Orientation: Person, Place, Time and Situation Level of Consciousness: Awake and Alert Patient Behavior: Appropriate Mood Description: Calm Affect Description: Calm Patient Cognition Impaired: No Ability to Follow Directions: Excellent Speech Pattern: Clear Thought Content: positive for Intact and positive for Goal Oriented Judgement: Fair Medications Medications Current Medications Generic Name Dose Route Start Last Admin Trade Name Freq PRN Reason Stop Dose Admin Acetaminophen 650 mg 11/07/20 09:48 11/14/20 12:43 Acetaminophen 325 Mg Tablet PO 650 mg Q6H PRN Administration Headache/Pain Mild Scale (1-3) Al Hydroxide/Mg Hydroxide 30 ml 11/07/20 09:48 Magnesium Hydrox/Alum Hydrox 30 Ml Oral.Susp PO Q6H PRN Heartburn/Nausea Amitriptyline HCl 50 mg 11/10/20 21:00 11/14/20 20:00 Amitriptyline Hcl 25 Mg Tablet PO 50 mg BEDTIME IRVIGN Administration Bupropion HCl 300 mg 11/07/20 09:00 11/15/20 08:43 Bupropion Hcl Xl 300 Mg Tab.Er.24h PO 300 mg DAILY IRVING Administration Clonazepam 1 mg 11/12/20 09:00 11/15/20 08:43 Clonazepam 1 Mg Tablet PO 1 mg DAILY IRVING Administration Clonazepam 0.5 mg 11/11/20 13:00 11/15/20 11:10 Clonazepam 0.5 Mg Tablet PO 0.5 mg 1200 IRVING Administration Hydroxyzine HCl 25 mg 11/07/20 09:48 Hydroxyzine Hcl 25 Mg Tablet PO BEDTIME PRN Anxiety Magnesium Hydroxide 30 ml 11/07/20 09:48 Milk Of Magnesia 30 Ml Oral.Susp PO DAILY PRN Constipation Methadone HCl 10 mg 11/07/20 09:00 11/15/20 08:43 Methadone Hcl 1 Mg/0.1 Ml Oral.Conc PO 10 mg DAILY IRVING Administration Olanzapine 20 mg 11/06/20 21:00 11/14/20 19:59 Olanzapine 10 Mg Tablet PO 20 mg BEDTIME IRVING Administration Sertraline HCl 50 mg 11/14/20 09:00 11/15/20 08:43 Sertraline Hcl 50 Mg Tablet PO 50 mg DAILY IRVING Administration Trazodone HCl 50 mg 11/07/20 09:48 11/07/20 20:29 Trazodone Hcl 50 Mg Tablet PO 50 mg BEDTIME PRN Administration Insomnia Allergies Allergies Allergy/AdvReac Type Severity Reaction Status Date / Time No Known Allergies Allergy Verified 11/07/20 02:03 [No Known Allergies*] Assessment & Plan Assessment & Plan (1) Opioid dependence on agonist therapy: Status: Acute Code(s): F11.20 - Opioid dependence, uncomplicated Recommendations: * Continue methadone at current dose of 10mg---while patient wishes to decrease by 1mg, our pharmacy unable to dose and at that amount. Greater than 50% of the session was spent on counseling and/or coordination of care PMFSH Past Medical History Medical History Anxiety Depression Social History Social History Housing: Homeless Patient Tobacco Use Status: Current everyday Tobacco user Tobacco use type: Cigarette Cigarette Packs Per Day: 0.5 Cigarettes Per Day: 10.0 Years Smoked: 20 Smoked in Last 30 Days: Yes Patient Interested in Nicotine Replacement: Yes Patient Given Instructions on How to Stop Smoking: Yes Date Education Initiated: 11/07/20 Second Hand Smoke Exposure: Yes Use of substances other than those prescribed or required for medical reasons: Yes Substance Use Type: Crack/Cocaine Substance Use Frequency: Monthly Last Used Substance: Days (ago) Last Used Substance Other:: $100 Currently Displaying Signs/Symptoms of Drug Intoxication Withdrawal: No Any prior treatment program specific to substance use: No Have you been hit, kicked, punched, or otherwise hurt by someone within the past year? If so, by whom?: No Do you feel safe in your current relationship?: No Current Relationship Is there a partner from a previous relationship who is making you feel unsafe now?: No Are you made to feel afraid or neglected: No Advance Directives: No Guardian: No Do you have thoughts of harming others: None Do you have a plan to hurt others: No Plan Recently lost weight without trying: No How much weight loss: Not applicable Eating poorly because of decreased appetite: No Nutrition screen score: 0 Poor oral hygiene: No service: No Sexual orientation: Straight/Heterosexual
[2020-11-15 18:00] VITALS: BP 110/74; PULSE 103; TEMP 36.2
[2020-11-15] MEDS: Amitriptyline HCl 25 MG TABLET 50 MG PO (20:08)
[2020-11-15] MEDS: Acetaminophen 325 MG TABLET 650 MG PO (20:08)
[2020-11-15] MEDS: OLANZapine 10 MG TABLET 20 MG PO (20:09)
[2020-11-16 06:25] VITALS: BP 91/55; PULSE 73; RESP 16; TEMP 36.3; O2SAT 96
[2020-11-16] MEDS: Sertraline HCL 50 MG TABLET PO (09:17)
[2020-11-16] MEDS: clonazePAM 1 MG TABLET PO (09:17)
[2020-11-16] MEDS: buPROPion HCl XL 300 MG TAB.ER.24H PO (09:17)
--- NOTE | 2020-11-16 12:00 | P.DS_ITS ---
DS: Providers Provider Date of Service: 11/16/20 Date of admission: 11/07/20 09:48 Date of discharge: 11/16/20 Primary care physician: Cornelia Ferrara MD Admitting clinician: Bryce Marino Attending physician on admission: Bryce Marino Consults: 11/06/20 20:53 Consult to Crisis Stat Reason for consultation: si, depression 11/15/20 09:00 Addiction Medicine Routine Consulting Provider: Lita Miramontes Reason for consultation: Pt currently on Methadone, would like to discuss tapering. Has provider been notified: No Attending physician on discharge: Robert Bronson Discharging clinician: Cynthia Ceron DS: Diagnosis Discharge Diagnosis (1) Mood disorder: Status: Acute Problem details: 50 yo male presented with reports of an increase of sx of anxiety and depression with SI-planning to jump off a local bridge, but not completing this plan as he feared severe injury that would not end his life. Pt is on methadone maintenance and reports use of cocaine prior to presenting for assessment. (2) Cocaine abuse: Status: Acute (3) Opioid dependence on agonist therapy: Status: Acute DS: Medications Discharge Medications Home Medications: Home Medications Medication Instructions Recorded Confirmed methadone 10 mg PO DAILY 11/06/20 11/06/20 Previous Rx's Medication Instructions Recorded amitriptyline 50 mg PO BEDTIME #14 tab 11/16/20 bupropion HCl 300 mg PO DAILY #14 tab 11/16/20 clonazepam 0.5 mg PO 1200 #7 tab 11/16/20 clonazepam 1 mg PO DAILY #7 tab 11/16/20 naloxone [Narcan] 4 mg INTRANASAL Q2M PRN #2 ea 11/16/20 olanzapine 1 tab PO BEDTIME #14 tab 11/16/20 sertraline 50 mg PO DAILY #14 tab 11/16/20 Discharge Plan Discharge Anticipated Discharge Date/Time: 11/16/20 16:00 Patient Disposition: Home, Self-Care Discharge Diagnosis: Opiate Use Disorder, currently on Methadone Maintenance Stimulant use disorder, cocaine, severe Mood disorder Referrals: Ronny Rosen (therapy) [Other] - 11/22/20 12:40 pm (This appointment is via Telehealth) Methadone ([facility]) [Other] - 11/17/20 8:00 am (Please arrive between 8- 10AM to be reinstated as a client on Sunday11/17/20) Andre Linn (psychiatry) [Other] - 11/17/20 6:00 pm (This appointment is via Telehealth) Cornelia Ferrara MD [Primary Care Provider] - 12/06/20 10:30 am Discharge Medications: New clonazepam 0.5 mg Tablet 0.5 mg PO 1200 Qty: 7 RF: 0 clonazepam 1 mg Tablet 1 mg PO DAILY Qty: 7 RF: 0 amitriptyline 25 mg Tablet 50 mg PO BEDTIME Qty: 14 RF: 1 sertraline 50 mg Tablet 50 mg PO DAILY Qty: 14 RF: 0 bupropion HCl 300 mg Tablet Extended Release 24 Hr 300 mg PO DAILY Qty: 14 RF: 0 Narcan 4 mg/actuation spray,non-aerosol 4 mg intranasal Q2M PRN (Reason: opioid overdose) Qty: 2 RF: 0 Continued olanzapine 20 mg tablet 1 tab PO BEDTIME Qty: 14 RF: 0 Held methadone 10 mg/mL Concentrate 10 mg PO DAILY RF: 0 Hold Instructions: Continue with Methadone provider, [facility] Discontinued clonazepam 0.5 mg tablet 0.5 mg PO BID RF: 0 amitriptyline 25 mg tablet 1 tab PO BEDTIME RF: 0 bupropion HCl 300 mg tablet extended release 24 hr 1 tab PO DAILY RF: 0 Discharge Orders: Discharge Order (Routine); Ordered 11/16/20 Ordered By: Cynthia Ceron Diet: advance to usual diet Activity on Discharge: As tolerated Stand Alone Forms: Patient Portal Discharge page, Community Support Care Plan Goals: Mood Stabilization Abstinence from use of recreational drugs. Health Concerns: Mood Disorder Cocaine Use Disorder Opioid Use Disorder-currently on Methadone Maintenance with Dawna B[facility] Plan of Treatment: Take medications as directed Attend appointments as scheduled. You have been considering [facility] and transfer to [facility]. We encourage you to continue with this plan. Assessment: Alert, oriented, reports a decrease in depressive sx. Denies SI, HI. Denies and no evidence of any psychosis or lability of mood. No medicaiton SE. Patient Instructions: Bupropion (By mouth), Amitriptyline (By mouth), Clonazepam (By mouth), Sertraline (By mouth), Olanzapine (By mouth) Discharge Date/Time: 11/16/20 13:30 Mental Status Exam Mental Status Exam Patient Appearance: Appropriate Patient Orientation: Person, Place, Time and Situation Level of Consciousness: Alert Patient Behavior: Appropriate and Talkative Mood Description: Constricted Affect Description: Constricted Patient Cognition Impaired: No Ability to Follow Directions: Good Speech Pattern: Spontaneous Speech Memory Description: Intact Hallucinations: None Delusions: Not Present Thought Process: Intact Thought Content: positive for Intact Judgement: Good DS: Summary Hospital Course Hospital Course: Pt was admitted on a conditional voluntary. Precipitants to admission were not clarified by the patient. He was re-started on his medications which were titrated without adverse effects. Residential options ([facility]) was pursued with no immediate bed available in the community. Pt discussed application to [facility] and planned to pursue this upon discharge, with awareness that he must admit to [facility] prior to that transfer as he was informed by the program. Pt quietly participated in the milieu and exhibited no behavioral issues during his admission. Time spent discussing smoking cessation with patient: 3 to 10 minutes Status at Discharge Cognitive/behavioral status at discharge: alert, oriented, non-psychotic, denies SI, HI plan or intent. Functional status at discharge: independent ambulation Overall status at discharge: patient is back to baseline Time Spent with Patient Time attestation: Total time spent providing and/or coordinating discharge services:25
[2020-11-16] MEDS: clonazePAM 0.5 MG TABLET PO (12:45)
== END 2020-11-16 13:30 | disposition home or self-care (01) | DRG 753 ==
LOC: HO.ED 11-07 10:21 → HO.PM5 11-07 10:24
PROVIDERS: Nurse Practitioner Family; Admitting Provider Psychiatry & Neurology Psychiatry; Emergency Provider Physician Assistant; PCP Internal Medicine; Visit Provider Clinical Nurse Specialist Psychiatric/Mental Health, Adult
DX: F39 Unspecified mood [affective] disorder (principal); R45.851 Suicidal ideations; F11.20 Opioid dependence, uncomplicated; F14.10 Cocaine abuse, uncomplicated; F17.210 Nicotine dependence, cigarettes, uncomplicated; Z20.822 Contact with and (suspected) exposure to COVID-19; Z71.6 Tobacco abuse counseling; Z79.899 Other long term (current) drug therapy
CPT/HCPCS: 36415; 80053; 80076; 80307; 81003; 85025; 87635; 93005; 99284

== ENCOUNTER 2020-12-06 12:07 | Emergency (ER) | payer OTHER, SELFPAY | END 2020-12-06 12:50 | disposition left against medical advice (07) | PROVIDERS: Emergency Provider Emergency Medicine; PCP Internal Medicine | DX: K08.89 Other specified disorders of teeth and supporting structures (principal) ==

== ENCOUNTER 2020-12-31 11:21 | Inpatient (IN) | payer OTHER, SELFPAY ==
--- NOTE | 2020-12-31 11:45 | ECG_ITS ---
Test Reason : MEDICAL CLEARANCE Blood Pressure : / mmHG Vent. Rate : 063 BPM Atrial Rate : 063 BPM P-R Int : 150 ms QRS Dur : 086 ms QT Int : 412 ms P-R-T Axes : 026 071 043 degrees QTc Int : 421 ms Normal sinus rhythm Normal ECG When compared with ECG of 07-NOV-2020 10:13, No significant change was found Referred By: Ashlie Osei Electronically Signed By:MIAN JESUS MD
[2020-12-31 11:53] VITALS: BP 113/74; PULSE 108; RESP 16; TEMP 36.8; O2SAT 96; BMI 29.2
--- NOTE | 2020-12-31 13:35 | ED.PSYCH ---
HPI - Psych General Chief Complaint: Psychiatric Symptoms Stated Complaint: CRISIS Time Seen by Provider: 12/31/20 11:45 Source: patient Mode of arrival: ambulatory Limitations: no limitations History of Present Illness HPI Narrative: Patient is a 50-year-old male with a past medical history of depression and homelessness who presents with depression. Patient states he is homeless and sleeps in a tent in the [facility], he states he does not mind this arrangement and that works well for him and is not what is causing his depression. He states he has been depressed for years any takes a ?bunch of meds but they do not help . During triage, he expressed to the ER and a plan for SI which is to overdose on his prescription medications. During my exam, the patient denied any SI or HI. He simply stated that he was very depressed and he does not feel as meds are working anymore and he needs help. He denied any physical complaints at this time. Related Data Home Medications Medication Instructions Recorded Confirmed methadone 8 mg PO DAILY 11/06/20 12/31/20 amitriptyline 25 mg PO BEDTIME 12/31/20 12/31/20 clonazepam 1 mg PO BID 12/31/20 12/31/20 olanzapine 20 mg PO BEDTIME 12/31/20 12/31/20 sertraline 100 mg PO DAILY 12/31/20 12/31/20 Previous Rx's Medication Instructions Recorded bupropion HCl 300 mg PO DAILY #14 tab 11/16/20 naloxone [Narcan] 4 mg INTRANASAL Q2M PRN #2 ea 11/16/20 Allergies Allergy/AdvReac Type Severity Reaction Status Date / Time No Known Allergies Allergy Verified 11/07/20 02:03 [No Known Allergies*] Review of Systems Review of Systems: Yes all other systems are reviewed and are negative [facility] Past Medical History Medical History Anxiety Depression Social History Social History Housing: Homeless Patient Tobacco Use Status: Current everyday Tobacco user Tobacco use type: Cigarette Cigarette Packs Per Day: 0.5 Cigarettes Per Day: 10.0 Years Smoked: 20 Second Hand Smoke Exposure: Yes Substance Use Type: Crack/Cocaine Advance Directives: No Advance Directives Information Provided: Yes Healthcare Proxy: No Guardian: No service: No Sexual orientation: Straight/Heterosexual Physical Exam Vital Signs: Vital Signs: Last Vital Signs Temp 98.7 F 12/31/20 16:37 Pulse 56 12/31/20 16:37 Resp 16 12/31/20 16:37 BP 102/67 12/31/20 16:37 Pulse Ox 99 12/31/20 16:37 Body Mass Index 29.2 Const: General: cooperative, healthy appearing, comfortable, no acute distress and well developed Orientation/consciousness: patient oriented x3 Limitations: no limitations HENMT: Head: Yes normal to inspection Eyes: General: appearance normal, both eyes and all related structures Neck: Neck: Yes normal visual inspection and Yes full ROM Resp: Effort & Inspection: normal respiratory effort and able to speak in complete sentences Cardio: Rate: regular rate Rhythm: regular rhythm GI: Inspection: Yes normal to inspection Skin: General skin exam: no rashes or lesions noted Neuro: General: patient oriented x3 Extrem: General: Yes normal to inspection Psych: Appearance: grossly normal and well kempt Mental Status: mental status grossly normal Speech and movement: Normal speech and movement present Affect: normal affect Attitude: cooperative Thought process: Normal thought process present Thought content: Suicidality present, no homicidality, no hallucinations and Depressive thoughts present Insight: Fair insight present (Psych) Judgement: Fair judgement present (Psych) Course Course Course Narrative: 50-year-old male with past medical history of depression and homelessness who presents with SI with plan to overdose on his medications. Vital signs are stable except for a slightly tachycardic heart rate at 108. Will get labs, EKG for medical clearance and put in [facility] consult for crisis evaluation. [facility] - Psych Lab Data Attestation: I reviewed the patient's lab results. Labs: Lab Results 12/31/20 12/31/20 Range/Units 19:18 19:18 Urine Color YELLOW Urine Appearance CLEAR Urine pH 6.0 (5.0-8.0) Ur Specific [place] >= 1.030 H (1.005-1.025) Urine Protein TRACE (NEG-TRACE) MG/DL Urine Glucose (UA) NEG (NEG) MG/DL Urine Ketones NEG (NEG) MG/DL Urine Blood NEG (NEG) Urine Nitrite NEG (NEG) Ur Leukocyte Esterase NEG (NEG) Urine Opiates Screen Not Detected (Not Detect) Ur Barbiturates Screen Not Detected (Not Detect) Ur Phencyclidine Scrn Not Detected (Not Detect) Ur Amphetamines Screen Not Detected (Not Detect) U Benzodiazepines Scrn POSITIVE H (Not Detect) Urine Cocaine Screen POSITIVE H (Not Detect) U Marijuana (THC) Screen Not Detected (Not Detect) ECG Data Attestation: I personally reviewed and interpreted this ECG as follows: Interpretation: [address] [id number] ReportSigned Patient: Quintin HeardMR#: [id number]: [id number]:[id number]/Sex: 50 / MADM Date: 12/31/20Loc: [address]: Ordering Physician: JESS HINSON Date of Service: 12/31/20 Procedure(s): ECG 12 lead EKG Accession Number(s): [id number] cc: JESS HINSON~ Test Reason : MEDICAL CLEARANCE Blood Pressure : / mmHG Vent. Rate : 063 BPM Atrial Rate : 063 BPM P-R Int : 150 ms QRS Dur : 086 ms QT Int : 412 ms P-R-T Axes : 026 071 043 degrees QTc Int : 421 ms Normal sinus rhythm Normal ECG When compared with ECG of 07-NOV-2020 10:13, No significant change was found Referred By: Jess Hinson Electronically Signed By:KWAME JESUS MD Dictated By:Kwame Jesus MDSigned By:<Electronically signed by Kwame Jesus MD in OV>12/31/20 1325 DD/ 1248TD/TT: 12/31/20 1325Transcriptionist: Discharge Plan Discharge Clinical Impression: Depression, Suicidal ideation Prescriptions: No Action methadone 10 mg/mL Concentrate 8 mg PO DAILY RF: 0 Hold Instructions: Continue with Methadone provider, Martita [facility] bupropion HCl 300 mg Tablet Extended Release 24 Hr 300 mg PO DAILY Qty: 14 RF: 0 Narcan 4 mg/actuation spray,non-aerosol 4 mg intranasal Q2M PRN (Reason: opioid overdose) Qty: 2 RF: 0 sertraline 100 mg tablet 100 mg PO DAILY RF: 0 clonazepam 1 mg tablet 1 mg PO BID RF: 0 amitriptyline 25 mg tablet 25 mg PO BEDTIME RF: 0 olanzapine 20 mg tablet 20 mg PO BEDTIME RF: 0
[2020-12-31 16:37] VITALS: BP 102/67; PULSE 56; RESP 16; TEMP 37.1; O2SAT 99
--- NOTE | 2020-12-31 18:04 | PHA.MEDREC ---
Pharmacy Consult ? Medication Reconciliation Pharmacy has completed the medication reconciliation. There are no remarkable issues for provider's attention. I contacted [facility] methadone clinic for verification. Waiting for a call back. Christina Cai, JesusD
[2020-12-31 19:31] LABS: Glucose Urine UA NEG (NEG); Leukocyte Esterase Urine NEG (NEG); Nitrite Urine NEG (NEG); Specific Gravity - Urine >= 1.030 (1.005-1.025); Urine Blood NEG (NEG); Urine Ketones NEG (NEG); Urine Protein TRACE MG/DL (NEG-TRACE)
[2020-12-31 19:49] LABS: Appearance Urine CLEAR; Color Urine YELLOW
[2020-12-31 19:52] LABS: Amphetamine Screen Urine Not Detected (Not Detect); Barbiturates, Urine Not Detected (Not Detect); Benzodiazepines Screen Urine POSITIVE (Not Detect); Cannabinoid Screen Urine Not Detected (Not Detect); Cocaine Screen Urine POSITIVE (Not Detect); Opiate Screen Urine Not Detected (Not Detect); Phencyclidine Screen Urine Not Detected (Not Detect)
[2021-01-01] MEDS: clonazePAM 1 MG TABLET PO ×3 (01:15→20:21)
[2021-01-01] MEDS: OLANZapine 10 MG TABLET 20 MG PO ×2 (01:15→20:20)
[2021-01-01] MEDS: Amitriptyline HCl 25 MG TABLET PO ×2 (01:15→20:21)
[2021-01-01 01:24] VITALS: BP 117/76; PULSE 95; RESP 16; TEMP 36.6; O2SAT 98
--- NOTE | 2021-01-01 06:57 | PC.NURSE ---
Patient signed a release for [facility] that was faxed over. This RN verified with Dimitry from [facility] [place] the last Methadone was yesterday 12/31 at 11:05am; 8mg PO daily. Patient slept, denied pain. Will continue to monitor.
[2021-01-01] MEDS: Sertraline HCL 100 MG TABLET PO (09:34)
[2021-01-01] MEDS: buPROPion HCl XL 300 MG TAB.ER.24H PO (09:35)
[2021-01-01 09:41] VITALS: BP 115/79; PULSE 122; RESP 16; TEMP 36.3; O2SAT 96
[2021-01-01 10:08] LABS: COVID-19 Test Negative (Negative)
[2021-01-01 18:04] VITALS: RESP 15
[2021-01-01 21:37] VITALS: BP 109/72; PULSE 75; TEMP 36.5; O2SAT 96
--- NOTE | 2021-01-02 06:13 | PC.NURSE ---
Patient slept through the night, no distress observed/reported, VSS, behavior appropriate, disposition section 12 inpatient bed search, will continue to monitor.
[2021-01-02 06:14] VITALS: BP 94/48; PULSE 71; RESP 18; TEMP 36.3; O2SAT 95
[2021-01-02 06:23] VITALS: BP 104/63
[2021-01-02] MEDS: clonazePAM 1 MG TABLET PO ×2 (08:43→21:25)
[2021-01-02] MEDS: Sertraline HCL 100 MG TABLET PO (08:43)
[2021-01-02] MEDS: buPROPion HCl XL 300 MG TAB.ER.24H PO (08:43)
--- NOTE | 2021-01-02 10:49 | MHC.RECOVSUP ---
Recovery Support note: Patient is a 50 year old French speaking male who presented to [facility] ED due to SI. Patient was evaluated by The [facility]ARE Team and is currently awaiting an inpatient psychiatric bed. This physician underwriter met with patient to discuss his substance use and recovery. Patient reports using cocaine once in a while and is aware that it is not good for his health. Patient does not find his cocaine use to be problematic. Patient reports he has a history of heroin use however reports he has not used in five or six years. Patient reports he obtains his methadone through [facility] and that he is in the process of tapering off of the medication. Patient declined discussing community supports. Discussed case with The CARE Team.
[2021-01-02 13:26] VITALS: BP 103/72; PULSE 89; RESP 17; TEMP 36.2; O2SAT 97
[2021-01-02 14:00] VITALS: RESP 16
[2021-01-02] MEDS: OLANZapine 10 MG TABLET 20 MG PO (21:25)
[2021-01-02] MEDS: Amitriptyline HCl 25 MG TABLET PO (21:25)
[2021-01-02 22:08] VITALS: BP 93/56; PULSE 70; TEMP 36.1; O2SAT 97
[2021-01-02 23:37] VITALS: BP 114/74; PULSE 85; TEMP 36.4; O2SAT 97
--- NOTE | 2021-01-03 05:53 | PC.NURSE ---
Patient slept through the night, no distress observed/reported, behavior appropriate, med compliant, VSS, appetite good, elimination intact, disposition section 12 inpatient bed search, will continue to monitor.
--- NOTE | 2021-01-03 06:59 | PC.NURSE ---
patient appears to remain at rest at present appears in no distress
[2021-01-03 08:03] VITALS: BP 95/59; PULSE 81; RESP 18; TEMP 36.5; O2SAT 96
[2021-01-03] MEDS: clonazePAM 1 MG TABLET PO ×2 (09:58→20:36)
[2021-01-03] MEDS: buPROPion HCl XL 300 MG TAB.ER.24H PO (09:58)
[2021-01-03] MEDS: Sertraline HCL 100 MG TABLET PO (09:58)
[2021-01-03] MEDS: OLANZapine 10 MG TABLET 20 MG PO (20:36)
[2021-01-03] MEDS: Amitriptyline HCl 25 MG TABLET PO (20:36)
--- NOTE | 2021-01-03 20:36 | MHC.CARE ---
CARE team contacted [facility]) to amend inpt psych authorization. Dante Hurtado approved change for start date 01/04/21 5 days last cover on 01/08/21. If pt is not admitted on 01/04/21, bedsearch will continue for transfer to another facility for treatment.
[2021-01-03 21:10] VITALS: BP 112/75; PULSE 77; RESP 15; TEMP 36.4; O2SAT 98
[2021-01-04 03:50] VITALS: BP 111/74; PULSE 81; RESP 16; TEMP 36.4; O2SAT 98
--- NOTE | 2021-01-04 05:59 | PC.NURSE ---
Patient slept through the night, no distress observed/reported, behavior appropriate, med compliant, VSS, disposition section 12 inpatient bed search, will continue to monitor.
--- NOTE | 2021-01-04 07:14 | PC.NURSE ---
patient appears in no distress at present,appears to remain asleep respirations are even and unlabored.
[2021-01-04] MEDS: Sertraline HCL 100 MG TABLET PO (08:19)
[2021-01-04] MEDS: clonazePAM 1 MG TABLET PO ×2 (08:20→20:03)
[2021-01-04] MEDS: buPROPion HCl XL 300 MG TAB.ER.24H PO (08:20)
--- NOTE | 2021-01-04 08:27 | ECG_ITS ---
Test Reason : MED CLEARANCE Blood Pressure : / mmHG Vent. Rate : 096 BPM Atrial Rate : 096 BPM P-R Int : 162 ms QRS Dur : 080 ms QT Int : 336 ms P-R-T Axes : 060 072 041 degrees QTc Int : 424 ms Normal sinus rhythm Normal ECG When compared with ECG of 31-DEC-2020 12:48, Vent. rate has increased BY 33 BPM Referred By: Ashlie sOei Electronically Signed By:ARIE LEVY
[2021-01-04 09:22] LABS: MANUAL DIFF FLAG NO
[2021-01-04 09:26] LABS: Basophils Percent Auto 0.7 % (0-2); Eosinophils Absolute Auto 0.1 X10*3/uL (0.0-0.4); Hematocrit 45.7 % (42-52); Hemoglobin 14.7 g/dl (14.0-18.0); Imm Gran Abs Auto 0.01 X10*3/uL (0.00-0.03); Imm Gran Pct Auto 0.2 % (0.0-0.4); Lymphocytes Absolute Auto 2.1 X10*3/uL (1.2-4.9); Lymphocytes Percent Auto 34.7 % (20-40); Mean Corpuscular HGB Conc 32.2 g/dl (31.0-36.0); Mean Corpuscular Hemoglobin 28.5 pg (27.0-33.0); Mean Corpuscular Volume 88.7 fL (80-98); Mean Platelet Volume 9.7 fL (9.4-12.4); Monocytes Absolute Auto 0.7 X10*3/uL (0.1-1.2); Monocytes Percent Auto 11.3 % (2-11); Neutrophils Absolute Auto 3.1 X10*3/uL (2.0-8.3); Neutrophils Percent Auto 51.1 % (45-73); Platelet Count 270 X10*3/uL (160-400); Red Blood Count 5.15 X10*6/uL (4.60-5.80); Red Cell Distribution Width 15.1 % (11.0-16.0); White Blood Count 6.1 X10*3/uL (4.8-10.8)
[2021-01-04 09:59] LABS: Alanine Aminotransferase 11 U/L (0-40); Albumin Level 4.1 g/dL (3.5-5.0); Alkaline Phosphatase 50 U/L (39-117); Anion Gap 12 (12-20); Aspartate Amino Transferase 11 U/L (5-37); Bilirubin Total 0.2 mg/dL (0.0-1.0); Blood Urea Nitrogen 13 mg/dL (9-16); Calcium 9.2 mg/dL (8.4-10.2); Carbon Dioxide 29 mmol/L (22-29); Chloride 106 mmol/L (96-108); Creatinine Clr Calc Pharmacy 85.2; Estimated Glomerular Filt Rate > 60; Glucose Random 100 mg/dL (60-115); Magnesium 2.1 mg/dL (1.6-2.6); Potassium 4.6 mmol/L (3.3-5.1); Sodium 142 mmol/L (135-145); Total Protein 6.8 g/dL (6.5-8.0)
--- NOTE | 2021-01-04 16:22 | PC.ADMIT ---
Pt arrived on the unit at 1500. Pt is homeless and has been living [place]. Pt used cocaine last . Pt self presented to [facility] ER after feeling depressed. Pt covid status was negative. Pt tox screen was positive for Benzos and cocaine. Pt labs were within NML.Pt having worsening depression and SI with no plan. Pt felt that he waas decompensating since last being in inpatient and reported that he has not been sleeping, has been using cocaine, is feeling hopeless and sad, and is not taking care of himself. Pt has no support in the community. Pt feels at this time that he is not safe with his thoughts and is worried that he might act on them. Pt is on a 12A.
[2021-01-04 18:00] VITALS: BP 119/69; PULSE 77; TEMP 35.9
[2021-01-04] MEDS: OLANZapine 10 MG TABLET 20 MG PO (20:03)
[2021-01-04] MEDS: Amitriptyline HCl 25 MG TABLET PO (20:04)
[2021-01-05 06:45] VITALS: BP 118/63; PULSE 83; TEMP 36.4; O2SAT 95
[2021-01-05] MEDS: buPROPion HCl XL 300 MG TAB.ER.24H PO (08:37)
[2021-01-05] MEDS: Sertraline HCL 100 MG TABLET PO (08:37)
[2021-01-05] MEDS: clonazePAM 1 MG TABLET PO ×2 (08:38→20:39)
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
[2021-01-05 18:00] VITALS: BP 110/59; PULSE 92; RESP 18; TEMP 35.9; O2SAT 97
[2021-01-05] MEDS: Acetaminophen 325 MG TABLET 650 MG PO (20:38)
[2021-01-05] MEDS: Amitriptyline HCl 25 MG TABLET 50 MG PO (20:40)
[2021-01-05] MEDS: OLANZapine 10 MG TABLET 20 MG PO (20:42)
[2021-01-06 06:28] VITALS: BP 110/63; PULSE 81; RESP 18; TEMP 36.7; O2SAT 98
[2021-01-06 07:00] VITALS: BMI 38.9
[2021-01-06] MEDS: buPROPion HCl XL 300 MG TAB.ER.24H PO (08:19)
[2021-01-06] MEDS: Sertraline HCL 100 MG TABLET PO (08:19)
[2021-01-06] MEDS: clonazePAM 1 MG TABLET PO ×2 (08:57→20:13)
[2021-01-06] MEDS: Sertraline HCL 25 MG TABLET PO (14:36)
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
[2021-01-06] MEDS: Amitriptyline HCl 25 MG TABLET 50 MG PO (20:12)
[2021-01-06] MEDS: Acetaminophen 325 MG TABLET 650 MG PO (20:13)
[2021-01-06] MEDS: OLANZapine 10 MG TABLET 20 MG PO (20:13)
[2021-01-06 20:15] VITALS: BP 105/69; PULSE 99; TEMP 36.3
[2021-01-07 06:40] VITALS: BP 97/54; PULSE 81; RESP 18; TEMP 36.4; O2SAT 98
[2021-01-07] MEDS: buPROPion HCl XL 300 MG TAB.ER.24H PO (09:05)
[2021-01-07] MEDS: clonazePAM 1 MG TABLET PO ×2 (09:05→20:02)
[2021-01-07] MEDS: Sertraline HCL 50 MG TABLET 150 MG PO (09:07)
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
[2021-01-07 18:00] VITALS: BP 120/70; PULSE 95; TEMP 36.6
[2021-01-07] MEDS: Ibuprofen 600 MG TABLET PO (18:31)
[2021-01-07 20:01] VITALS: BP 120/70; PULSE 95
[2021-01-07] MEDS: Prazosin HCL 1 MG CAPSULE PO (20:01)
[2021-01-07] MEDS: Amitriptyline HCl 25 MG TABLET 50 MG PO (20:01)
[2021-01-07] MEDS: OLANZapine 10 MG TABLET 20 MG PO (20:02)
[2021-01-08 06:00] VITALS: BP 99/55; PULSE 80; RESP 18; TEMP 35.5; O2SAT 80
[2021-01-08] MEDS: clonazePAM 1 MG TABLET PO ×2 (08:33→20:18)
[2021-01-08] MEDS: Sertraline HCL 50 MG TABLET 150 MG PO (08:33)
[2021-01-08] MEDS: buPROPion HCl XL 300 MG TAB.ER.24H PO (08:34)
[2021-01-08] MEDS: Ibuprofen 600 MG TABLET PO ×3 (08:34→18:06)
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
[2021-01-08 18:00] VITALS: BP 113/72; PULSE 80; TEMP 36.2
[2021-01-08 20:17] VITALS: BP 113/72; PULSE 80
[2021-01-08] MEDS: Prazosin HCL 1 MG CAPSULE PO (20:17)
[2021-01-08] MEDS: OLANZapine 10 MG TABLET 20 MG PO (20:17)
[2021-01-08] MEDS: Amitriptyline HCl 25 MG TABLET 50 MG PO (20:17)
[2021-01-09 06:00] VITALS: BP 116/58; PULSE 91; RESP 20; TEMP 36.2; O2SAT 94
[2021-01-09] MEDS: Sertraline HCL 50 MG TABLET 150 MG PO (08:02)
[2021-01-09] MEDS: Ibuprofen 600 MG TABLET PO ×3 (08:02→18:37)
[2021-01-09] MEDS: clonazePAM 1 MG TABLET PO ×2 (08:02→20:33)
[2021-01-09] MEDS: buPROPion HCl XL 300 MG TAB.ER.24H PO (08:03)
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
[2021-01-09 18:00] VITALS: BP 123/77; PULSE 86
[2021-01-09] MEDS: Amitriptyline HCl 25 MG TABLET 50 MG PO (20:33)
[2021-01-09] MEDS: OLANZapine 10 MG TABLET 20 MG PO (20:33)
[2021-01-09 20:34] VITALS: BP 111/62; PULSE 84
[2021-01-09] MEDS: Prazosin HCL 1 MG CAPSULE PO (20:34)
[2021-01-10 06:00] VITALS: BP 100/57; PULSE 72; RESP 18; TEMP 35.8; O2SAT 99
[2021-01-10] MEDS: buPROPion HCl XL 300 MG TAB.ER.24H PO (08:22)
[2021-01-10] MEDS: Sertraline HCL 50 MG TABLET 150 MG PO (08:22)
[2021-01-10] MEDS: Ibuprofen 600 MG TABLET PO ×3 (08:22→20:14)
[2021-01-10] MEDS: clonazePAM 1 MG TABLET PO ×2 (08:23→20:15)
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
[2021-01-10 18:00] VITALS: BP 112/85; PULSE 84; RESP 16; TEMP 36.1
[2021-01-10] MEDS: Amitriptyline HCl 25 MG TABLET 50 MG PO (20:15)
[2021-01-10] MEDS: OLANZapine 10 MG TABLET 20 MG PO (20:15)
[2021-01-10] MEDS: QUEtiapine Fumarate 25 MG TABLET PO (20:15)
[2021-01-11 06:00] VITALS: BP 98/53; PULSE 75; RESP 18; TEMP 35.5; O2SAT 97
[2021-01-11] MEDS: buPROPion HCl XL 300 MG TAB.ER.24H PO (08:20)
[2021-01-11] MEDS: Amphetamine Mixed Salts 10 MG TABLET PO ×2 (08:20→12:59)
[2021-01-11] MEDS: clonazePAM 1 MG TABLET PO ×2 (08:20→19:39)
[2021-01-11] MEDS: Sertraline HCL 50 MG TABLET 150 MG PO (08:21)
[2021-01-11 16:15] VITALS: BP 115/71; PULSE 98; TEMP 37.2
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
[2021-01-11] MEDS: OLANZapine 10 MG TABLET 20 MG PO (19:39)
[2021-01-11] MEDS: Amitriptyline HCl 25 MG TABLET 50 MG PO (19:39)
[2021-01-11] MEDS: QUEtiapine Fumarate 25 MG TABLET PO (19:39)
[2021-01-12 06:00] VITALS: BP 109/56; PULSE 76; RESP 18; TEMP 36; O2SAT 96
[2021-01-12] MEDS: Amphetamine Mixed Salts 10 MG TABLET PO ×2 (09:01→12:28)
[2021-01-12] MEDS: clonazePAM 1 MG TABLET PO (09:01)
[2021-01-12] MEDS: buPROPion HCl XL 300 MG TAB.ER.24H PO (09:01)
[2021-01-12] MEDS: Sertraline HCL 50 MG TABLET 150 MG PO (09:02)
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
[2021-01-12] MEDS: Naloxone HCl Nasal TAKE HOME 4 MG SPRAY NOSTRILALT (12:32)
== END 2021-01-12 13:34 | disposition home or self-care (01) | DRG 751 ==
LOC: HO.ED 12:29 → HO.PM5 01-04 13:17
PROVIDERS: Emergency Medicine; Physician Assistant Medical; Admitting Provider Psychiatry & Neurology Psychiatry; Emergency Provider Emergency Medicine Emergency Medical Services; PCP Internal Medicine; Visit Provider Psychiatry & Neurology Psychiatry
DX: F33.2 Major depressive disorder, recurrent severe without psychotic features (principal); R45.851 Suicidal ideations; F11.20 Opioid dependence, uncomplicated; Z59.0 Homelessness; F14.10 Cocaine abuse, uncomplicated; Z20.822 Contact with and (suspected) exposure to COVID-19; F43.12 Post-traumatic stress disorder, chronic; F17.210 Nicotine dependence, cigarettes, uncomplicated; Z71.6 Tobacco abuse counseling; Z79.899 Other long term (current) drug therapy
CPT/HCPCS: 36415; 80053; 80307; 81003; 83735; 85025; 87635; 93005; 99285

== ENCOUNTER 2021-05-02 11:13 | Emergency (ER) | payer OTHER, SELFPAY ==
--- NOTE | ~2021-05-02 | XR_ITS ---
EXAMINATION: XR CHEST CLINICAL INFORMATION: Chest pain COMPARISON: Report chest radiographs 10/19/2010 TECHNIQUE: Frontal view of the chest is performed. FINDINGS: The lungs are clear. There is no pneumothorax or pleural reaction. No infiltrate or effusion. The heart is normal in size. The vascularity is normal. The hilar and mediastinal contours and visualized bony structures are unremarkable.
--- NOTE | ~2021-05-02 | XR_ITS ---
EXAMINATION: XR CHEST CLINICAL INFORMATION: Chest pain. COMPARISON: None TECHNIQUE: Frontal view of the chest was obtained. FINDINGS: No significant abnormality is noted involving the heart, lungs, mediastinum, bony thorax or soft tissues. XR/XR chest 1V IMPRESSION: Unremarkable chest exam.
--- NOTE | 2021-05-02 11:18 | ECG_ITS ---
Test Reason : CHEST PAIN Blood Pressure : / mmHG Vent. Rate : 089 BPM Atrial Rate : 089 BPM P-R Int : 144 ms QRS Dur : 084 ms QT Int : 358 ms P-R-T Axes : 010 063 009 degrees QTc Int : 435 ms Normal sinus rhythm Normal ECG When compared with ECG of 04-JAN-2021 15:16, No significant change was found Referred By: Generic ED Physician Electronically Signed By:ADINA WORTHINGTON MD
[2021-05-02 12:12] VITALS: BP 109/72; PULSE 89; RESP 18; TEMP 36.8; O2SAT 97; BMI 31.0
--- NOTE | 2021-05-02 13:51 | ED_ITS ---
HPI - Chest Pain General Chief Complaint: Chest Pain Stated Complaint: chest pain Time Seen by Provider: 05/02/21 13:47 Source: patient Mode of arrival: ambulatory Limitations: no limitations History of Present Illness complaint: chest pain Onset (ago): month(s) (1) Timing of current episode: constant Prior episodes: No Onset: during rest Pain location: substernal Pain radiation: none Severity: moderate Quality: aching Relieving factors: nothing Exacerbating factors: nothing Risk Factors Coronary artery disease risk factors: none Related Data Home Medications Medication Instructions Recorded Confirmed methadone 10 mg/mL oral concentrate 8 mg PO DAILY 11/06/20 12/31/20 clonazepam 1 mg tablet 1 mg PO BID 12/31/20 12/31/20 olanzapine 20 mg tablet 20 mg PO BEDTIME 12/31/20 12/31/20 Previous Rx's Medication Instructions Recorded bupropion HCl 300 mg 24 hr tablet, 300 mg PO DAILY #14 tab 11/16/20 extended release naloxone 4 mg/actuation nasal 4 mg INTRANASAL Q2M PRN #2 ea 11/16/20 spray (Narcan) amitriptyline 25 mg tablet 50 mg PO BEDTIME 30 Days #60 tab 01/12/21 quetiapine 25 mg tablet 25 mg PO BEDTIME PRN 30 Days #30 01/12/21 tab sertraline 50 mg tablet 150 mg PO DAILY 30 Days #90 tab 01/12/21 Allergies Allergy/AdvReac Type Severity Reaction Status Date / Time No Known Allergies Allergy Verified 11/07/20 02:03 [No Known Allergies*] Review of Systems Review of Systems: Yes all other systems are reviewed and are negative Constitutional: Constitutional: Reports no additional constitutional complaints ENT: Reports system reviewed and no additional complaints, except as documented Cardiovascular: Cardiovascular: Reports no additional cardiovascular c omplaints, Denies dyspnea and Denies dyspnea on exertion Respiratory: Respiratory: Reports pain on inspiration, Denies pain with cough, Denies dyspnea and Denies dyspnea on exertion PMFSH Past Medical History Medical History Anxiety Chronic post-traumatic stress disorder (PTSD) Depression Social History Social History Household Members: None Housing: Homeless Do you presently have visiting nurse or other home services: No Alcohol intake: current Alcohol intake frequency: a few times a month Patient Tobacco Use Status: Current everyday Tobacco user Tobacco use type: Cigarette Cigarette Packs Per Day: 1 Cigarettes Per Day: 5 Years Smoked: 20 Second Hand Smoke Exposure: No Use of substances other than those prescribed or required for medical reasons: No Substance Use Type: Crack/Cocaine Advance Directives: No Advance Directives Information Provided: No service: No Sexual orientation: Straight/Heterosexual Physical Exam Vital Signs: Vital Signs: Last Vital Signs Temp 98.3 F 05/02/21 12:12 Pulse 89 05/02/21 12:12 Resp 18 05/02/21 12:12 BP 109/72 05/02/21 12:12 Pulse Ox 97 05/02/21 12:12 Body Mass Index 31.0 Const: General: cooperative, healthy appearing, comfortable, no acute distress and well developed Nutritional Appearance: average body habitus Orientation/consciousness: patient oriented x3 HENMT: Head: Yes normal to inspection Face and sinus: Yes normal facial exam Mouth: Normal oral and palatal mucosa present Neck: Neck: Yes normal visual inspection and Yes full ROM Chest: Chest palpation & inspection: normal inspection of the chest Resp: Effort & Inspection: normal respiratory effort Auscultation: clear to auscultation bilaterally Cardio: Jugular venous distension: no JVD Rhythm: regular rhythm GI: Inspection: Yes normal to inspection Palpation (GI): Soft to palpation, nontender and no guarding Neuro: General: patient oriented x3 Course Reevaluation(s) Reevaluation #1: Patient is doing much better his workup is negative, chest x- ray is negative, troponin I sensitive is negative after month of chest pain, D- dimer is negative. The patient completed charges home, he will follow-up with his PCP MDM - Chest Pain Lab Data Result diagrams: 05/02/21 14:27 05/02/21 14:27 Labs: Lab Results 05/02/21 05/02/21 05/02/21 Range/Units 14:27 14:27 14:27 WBC 8.2 (4.8-10.8) X10*3/uL RBC 4.91 (4.60-5.80) X10*6/uL Hgb 14.4 (14.0-18.0) g/dl Hct 43.5 (42.0-52.0) % MCV 88.6 (80.0-98.0) fL MCH 29.3 (27.0-33.0) pg MCHC 33.1 (31.0-36.0) g/dl RDW 15.3 (11.0-16.0) % Plt Count 296 (160-400) X10*3/uL MPV 9.4 (9.4-12.4) fL Immature Gran % (Auto) 0.2 (0.0-0.4) % Neut % (Auto) 50.3 (45-73) % Lymph % (Auto) 36.7 (20-40) % [place] % (Auto) 11.3 H (2-11) % Eos % (Auto) 1.0 (0-4) % Baso % (Auto) 0.5 (0-2) % Lymph # (Auto) 3.0 (1.2-4.9) X10*3/uL [place] # (Auto) 0.9 (0.1-1.2) X10*3/uL Eos # (Auto) 0.1 (0.0-0.4) X10*3/uL Baso # (Auto) 0.0 (0.0-0.2) X10*3/uL Abs Immat Gran (auto) 0.02 (0.00-0.03) X10*3/uL Absolute Neuts (auto) 4.1 (2.0-8.3) x10*3/uL Absolute Nucleated RBC 0.000 (0.0-0.012) X10*3/uL Nucleated RBC % (auto) 0.0 (0.0-0.2) /100WBC D-Dimer High Sensitivty < 150 NG/ML Sodium 141 (135-145) mmol/L Potassium 4.5 (3.3-5.1) mmol/L Chloride 106 (96-108) mmol/L Carbon Dioxide 28 (22-29) mmol/L Anion Gap 12 (12-20) BUN 14 (9-16) mg/dL Creatinine 1.36 (0.5-1.4) mg/dL Estim Creat Clear Calc 73.1 Estimated GFR 55 Random Glucose 92 (60-115) mg/dL Calcium 9.5 (8.4-10.2) mg/dL Total Bilirubin 0.2 (0.0-1.0) mg/dL AST 13 (5-37) U/L ALT 15 (0-40) U/L Alkaline Phosphatase 56 (39-117) U/L Troponin I High Sens (<3.5-35.0) ng/L Total Protein 7.5 (6.5-8.0) g/dL Albumin 4.5 (3.5-5.0) g/dL 05/02/ Range/Units 14:27 WBC (4.8-10.8) X10*3/uL RBC (4.60-5.80) X10*6/uL Hgb (14.0-18.0) g/dl Hct (42.0-52.0) % MCV (80.0-98.0) fL MCH (27.0-33.0) pg MCHC (31.0-36.0) g/dl RDW (11.0-16.0) % Plt Count (160-400) X10*3/uL MPV (9.4-12.4) fL Immature Gran % (Auto) (0.0-0.4) % Neut % (Auto) (45-73) % Lymph % (Auto) (20-40) % [place] % (Auto) (2-11) % Eos % (Auto) (0-4) % Baso % (Auto) (0-2) % Lymph # (Auto) (1.2-4.9) X10*3/uL [place] # (Auto) (0.1-1.2) X10*3/uL Eos # (Auto) (0.0-0.4) X10*3/uL Baso # (Auto) (0.0-0.2) X10*3/uL Abs Immat Gran (auto) (0.00-0.03) X10*3/uL Absolute Neuts (auto) (2.0-8.3) x10*3/uL Absolute Nucleated RBC (0.0-0.012) X10*3/uL Nucleated RBC % (auto) (0.0-0.2) /100WBC D-Dimer High Sensitivty NG/ML Sodium (135-145) mmol/L Potassium (3.3-5.1) mmol/L Chloride (96-108) mmol/L Carbon Dioxide (22-29) mmol/L Anion Gap (12-20) BUN (9-16) mg/dL Creatinine (0.5-1.4) mg/dL Estim Creat Clear Calc Estimated GFR Random Glucose (60-115) mg/dL Calcium (8.4-10.2) mg/dL Total Bilirubin (0.0-1.0) mg/dL AST (5-37) U/L ALT (0-40) U/L Alkaline Phosphatase (39-117) U/L Troponin I High Sens 3.5 (<3.5-35.0) ng/L Total Protein (6.5-8.0) g/dL Albumin (3.5-5.0) g/dL ECG Data ECG #1: ECG interpretation date: 05/02/21 ECG interpretation time: 13:54 Interpretation: cc: Mehul Mejia MD~ EXAMINATION: XR CHEST CLINICAL INFORMATION: Chest pain COMPARISON: Report chest radiographs 10/19/2010 TECHNIQUE: Frontal view of the chest is performed. FINDINGS: The lungs are clear. There is no pneumothorax or pleural reaction. No infiltrate or effusion. The heart is normal in size. The vascularity is normal. The hilar and mediastinal contours and visualized bony structures are unremarkable. XR/XR chest 2V IMPRESSION: Unremarkable examination. Dictated By: Jose Miguel Rodriguez MD Signed By: <Electronically signed by Jose Miguel Rodriguez MD in OV> 05/02/21 1421 DD/ 1347 TD/TT:? 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 model: NSR no ischemic changes Discharge Plan Discharge Clinical Impression: Chest pain Patient Disposition: Home, Self-Care Instructions: Chest Pain (ED) Prescriptions: No Action methadone 10 mg/mL Concentrate 8 mg PO DAILY RF: 0 Hold Instructions: Continue with Methadone provider, Martita Benton bupropion HCl 300 mg Tablet Extended Release 24 Hr 300 mg PO DAILY Qty: 14 RF: 0 Narcan 4 mg/actuation spray,non-aerosol 4 mg intranasal Q2M PRN (Reason: opioid overdose) Qty: 2 RF: 0 clonazepam 1 mg tablet 1 mg PO BID RF: 0 olanzapine 20 mg tablet 20 mg PO BEDTIME RF: 0 amitriptyline 25 mg Tablet 50 mg PO BEDTIME 30 Days Qty: 60 RF: 0 sertraline 50 mg Tablet 150 mg PO DAILY 30 Days Qty: 90 RF: 0 quetiapine 25 mg Tablet 25 mg PO BEDTIME PRN (Reason: insomnia) 30 Days Qty: 30 RF: 0 Referrals: Cornelia Ferrara MD [Primary Care Provider] - 2 days
[2021-05-02 14:37] LABS: MANUAL DIFF FLAG NO
[2021-05-02 14:39] LABS: Basophils Percent Auto 0.5 % (0-2); Eosinophils Absolute Auto 0.1 X10*3/uL (0.0-0.4); Hematocrit 43.5 % (42.0-52.0); Hemoglobin 14.4 g/dl (14.0-18.0); Imm Gran Abs Auto 0.02 X10*3/uL (0.00-0.03); Imm Gran Pct Auto 0.2 % (0.0-0.4); Lymphocytes Percent Auto 36.7 % (20-40); Mean Corpuscular HGB Conc 33.1 g/dl (31.0-36.0); Mean Corpuscular Hemoglobin 29.3 pg (27.0-33.0); Mean Corpuscular Volume 88.6 fL (80.0-98.0); Mean Platelet Volume 9.4 fL (9.4-12.4); Monocytes Absolute Auto 0.9 X10*3/uL (0.1-1.2); Monocytes Percent Auto 11.3 % (2-11); Neutrophils Absolute Auto 4.1 x10*3/uL (2.0-8.3); Neutrophils Percent Auto 50.3 % (45-73); Platelet Count 296 X10*3/uL (160-400); Red Blood Count 4.91 X10*6/uL (4.60-5.80); Red Cell Distribution Width 15.3 % (11.0-16.0); White Blood Count 8.2 X10*3/uL (4.8-10.8)
[2021-05-02 14:56] LABS: Alanine Aminotransferase 15 U/L (0-40); Albumin Level 4.5 g/dL (3.5-5.0); Alkaline Phosphatase 56 U/L (39-117); Anion Gap 12 (12-20); Aspartate Amino Transferase 13 U/L (5-37); Bilirubin Total 0.2 mg/dL (0.0-1.0); Blood Urea Nitrogen 14 mg/dL (9-16); Calcium 9.5 mg/dL (8.4-10.2); Carbon Dioxide 28 mmol/L (22-29); Chloride 106 mmol/L (96-108); Creatinine Clr Calc Pharmacy 73.1; Estimated Glomerular Filt Rate 55; Glucose Random 92 mg/dL (60-115); Potassium 4.5 mmol/L (3.3-5.1); Sodium 141 mmol/L (135-145); Total Protein 7.5 g/dL (6.5-8.0)
[2021-05-02 14:58] LABS: Troponin-I High Sensitivity 3.5 ng/L (<3.5-35.0)
[2021-05-02 15:16] LABS: D Dimer High Sensitivity < 150 NG/ML
[2021-05-02 15:41] VITALS: BP 129/71; PULSE 80; RESP 18; O2SAT 96
== END 2021-05-02 15:52 | disposition home or self-care (01) ==
PROVIDERS: Emergency Provider Emergency Medicine; PCP Internal Medicine
DX: R07.9 Chest pain, unspecified (principal); F11.20 Opioid dependence, uncomplicated
CPT/HCPCS: 36415; 71045; 71046; 80053; 84484; 85025; 85379; 93005; 99283; 99284

== ENCOUNTER 2021-08-14 12:28 | Emergency (ER) | payer OTHER, SELFPAY ==
--- NOTE | 2021-08-14 | ECG_ITS ---
Test Reason : cocaine use Blood Pressure : / mmHG Vent. Rate : 083 BPM Atrial Rate : 083 BPM P-R Int : 168 ms QRS Dur : 084 ms QT Int : 376 ms P-R-T Axes : 058 065 051 degrees QTc Int : 441 ms Normal sinus rhythm Normal ECG When compared with ECG of 02-MAY-2021 11:30, No significant change was found Referred By: Apoorva Gillis Electronically Signed By:MIAN JESUS MD
[2021-08-14 12:30] VITALS: BP 101/63; BP 110/60; PULSE 77; PULSE 90; RESP 18; TEMP 37; O2SAT 95; O2SAT 98; BMI 32.5
--- NOTE | 2021-08-14 13:06 | ED.PSYCH ---
HPI - Psych General Chief Complaint: Psychiatric Symptoms Stated Complaint: crisis Time Seen by Provider: 08/14/21 12:42 Source: patient Mode of arrival: EMS Limitations: no limitations History of Present Illness HPI Narrative: Patient presents emergency department for evaluation of increased depression. He reports that over the past 2 weeks she has a has been feeling increasingly more depressed with thoughts of suicidal ideation, states he wants to just take all of his pills and not wake up. He reports past history of suicide attempt many years ago with medication overdose. States he is being followed by [facility] where he has a therapist and med provider. Denies any recent changes to his medications. Denies alcohol consumption. Admits to cocaine usage a couple times a week, last having used a few days ago. Denies headache, dizziness, lightheadedness, neck pain, chest pain, palpitations, shortness of breath, difficulty breathing, abdominal pain, nausea/vomiting/diarrhea, urinary complaints, weakness. Related Data Home Medications Medication Instructions Recorded Confirmed bupropion HCl 300 mg 24 hr tablet, 300 mg PO DAILY 08/14/21 08/14/21 extended release clonazepam 1 mg tablet 1 mg PO BID 08/14/21 08/14/21 ibuprofen 600 mg tablet 600 mg PO Q8H PRN 08/14/21 08/14/21 mirtazapine 7.5 mg tablet 7.5 mg PO BEDTIME PRN 08/14/21 08/14/21 olanzapine 20 mg tablet 20 mg PO BEDTIME 08/14/21 08/14/21 sertraline 100 mg tablet 100 mg PO DAILY 08/14/21 08/14/21 Allergies Allergy/AdvReac Type Severity Reaction Status Date / Time No Known Allergies Allergy Verified 11/07/20 02:03 [No Known Allergies*] Review of Systems Review of Systems: Constitutional : No Fever, No Chills ENT/Mouth : No Ear Pain, No Nasal Congestion, No sore throat Eyes: No Eye Pain, No Swelling, No Redness Cardiovascular : No Chest Pain, No SOB Respiratory : No Cough, No Sputum, No Dyspnea Gastrointestinal : No Nausea, No Vomiting, No Diarrhea, No Hematochezia, No Melena Genitourinary : No Dysuria, No Urinary Frequency, No Hematuria Musculoskeletal : No Myalgias Skin : No Skin Lesions, No rash Neuro : No Weakness, No Numbness, No Paresthesias, No Dizziness, No Headache Psych : positive Anxiety, positive Depression, positive SI, no HI Heme/Lymph: No Lymphadenopathy Endocrine : No Polyuria, No Polydipsia ? All other systems reviewed and are negative FOR[facility]LY [facility], [facility] Past Medical History Attestation statement: The following information was validated with the patient. Source: old records reviewed Medical History Anxiety Chronic post-traumatic stress disorder (PTSD) Depression Social History Social History Household Members: None Housing: Homeless Do you presently have visiting nurse or other home services: No Alcohol intake: current Alcohol intake frequency: a few times a month Patient Tobacco Use Status: Current everyday Tobacco user Tobacco use type: Cigarette Cigarette Packs Per Day: 1 Cigarettes Per Day: 5 Years Smoked: 20 Second Hand Smoke Exposure: No Substance Use Type: Crack/Cocaine Advance Directives: No Advance Directives Information Provided: No service: No Sexual orientation: Straight/Heterosexual Physical Exam Vital Signs: Vital Signs: Last Vital Signs Temp 98.6 F 08/14/21 12:30 Pulse 90 08/14/21 12:30 Resp 18 08/14/21 12:30 BP 101/63 08/14/21 12:30 Pulse Ox 98 08/14/21 12:30 BMI result Body Mass Index 32.5 Vital signs have been reviewed as normal and appeared to be correct. Blood pressure normal.? Heart rate normal.? Respiration rate normal. Temperature normal.? Oxygen saturation normal. Appearance: Alert.?Oriented to person, place and time. No acute distress.?Normal affect. Eyes: Pupils equal, round and reactive to light.? ENT: Pharynx normal.?? Neck: Normal inspection.? Neck supple.?? CVS: Heart sounds normal. Normal heart rate and rhythm.? Pulses normal.?? Respiratory: No respiratory distress.? Lung sounds clear to auscultation bilaterally?? Abdomen: Soft and non-tender. Skin: Skin warm and dry.? Normal skin color.? Normal skin turgor.?? Extremities: No lower extremity edema.? Neuro: Moves all extremities spontaneously. Sensation intact bilaterally. No focal neuro deficits. Ambulates with normal steady gait. Course Course Course Narrative: Patient is a 51-year-old male with a past medical history of PTSD, anxiety, depression. Being evaluated for increased depression and suicidal ideations. Patient with no physical new medical complaints. He is well appearing, nontoxic, afebrile, hemodynamically stable, alert and oriented x3 and ambulating with steady gait. Will have patient evaluated by crisis. Reevaluation(s) Reevaluation #1: Routine labs CBC and BMP are unremarkable. Toxicology is positive for fentanyl, benzodiazepine, cocaine. Patient for disposition observation at this time as he will require time for evaluation by crisis. Time: 14:05 Reevaluation #2: Patient was evaluated by N. Patient was recently in the intermediate setting, however was unable to continue staying there as he had been using cocaine. Patient cleared for discharge to respite, patient was updated on this plan of care and he is agreeable with this plan. Discussed reasons to return to the emergency department Time: 17:05 [facility] - Psych Medical Records Attestation: I reviewed the patient's medical records. Lab Data Attestation: I reviewed the patient's lab results. Result diagrams: 08/14/21 13:30 08/14/21 13:30 Labs: Lab Results 08/14/21 08/14/21 08/14/21 Range/Units 13:13 13:13 13:30 WBC 6.9 (4.8-10.8) X10*3/uL RBC 4.82 (4.60-5.80) X10*6/uL Hgb 14.0 (14.0-18.0) g/dl Hct 43.0 (42.0-52.0) % MCV 89.2 (80.0-98.0) fL MCH 29.0 (27.0-33.0) pg MCHC 32.6 (31.0-36.0) g/dl RDW 14.2 (11.0-16.0) % Plt Count 292 (160-400) X10*3/uL MPV 9.3 L (9.4-12.4) fL Immature Gran % (Auto) 0.3 (0.0-0.4) % Neut % (Auto) 53.2 (45-73) % Lymph % (Auto) 32.9 (20-40) % Logan % (Auto) 12.0 H (2-11) % Eos % (Auto) 1.3 (0-4) % Baso % (Auto) 0.3 (0-2) % Lymph # (Auto) 2.3 (1.2-4.9) X10*3/uL Logan # (Auto) 0.8 (0.1-1.2) X10*3/uL Eos # (Auto) 0.1 (0.0-0.4) X10*3/uL Baso # (Auto) 0.0 (0.0-0.2) X10*3/uL Abs Immat Gran (auto) 0.02 (0.00-0.03) X10*3/uL Absolute Neuts (auto) 3.7 (2.0-8.3) x10*3/uL Absolute Nucleated RBC 0.000 (0.0-0.012) X10*3/uL Nucleated RBC % (auto) 0.0 (0.0-0.2) /100WBC Sodium (135-145) mmol/L Potassium (3.3-5.1) mmol/L Chloride (96-108) mmol/L Carbon Dioxide (22-29) mmol/L Anion Gap (12-20) BUN (9-16) mg/dL Creatinine (0.5-1.4) mg/dL Estim Creat Clear Calc Estimated GFR Random Glucose (60-115) mg/dL Calcium (8.4-10.2) mg/dL Urine Opiates Screen Not Detected (Not Detect) Urine Fentanyl Screen POSITIVE H (Not Detect) Ur Barbiturates Screen Not Detected (Not Detect) Ur Phencyclidine Scrn Not Detected (Not Detect) Ur Amphetamines Screen Not Detected (Not Detect) U Benzodiazepines Scrn POSITIVE H (Not Detect) Urine Cocaine Screen POSITIVE H (Not Detect) U Marijuana (THC) Screen Not Detected (Not Detect) COVID-19 (KHUSHI) Negative (Negative) COVID-19 Clin Com See Note 08/14/21 Range/Units 13:30 WBC (4.8-10.8) X10*3/uL RBC (4.60-5.80) X10*6/uL Hgb (14.0-18.0) g/dl Hct (42.0-52.0) % MCV (80.0-98.0) fL MCH (27.0-33.0) pg MCHC (31.0-36.0) g/dl RDW (11.0-16.0) % Plt Count (160-400) X10*3/uL MPV (9.4-12.4) fL Immature Gran % (Auto) (0.0-0.4) % Neut % (Auto) (45-73) % Lymph % (Auto) (20-40) % Logan % (Auto) (2-11) % Eos % (Auto) (0-4) % Baso % (Auto) (0-2) % Lymph # (Auto) (1.2-4.9) X10*3/uL Logan # (Auto) (0.1-1.2) X10*3/uL Eos # (Auto) (0.0-0.4) X10*3/uL Baso # (Auto) (0.0-0.2) X10*3/uL Abs Immat Gran (auto) (0.00-0.03) X10*3/uL Absolute Neuts (auto) (2.0-8.3) x10*3/uL Absolute Nucleated RBC (0.0-0.012) X10*3/uL Nucleated RBC % (auto) (0.0-0.2) /100WBC Sodium 141 (135-145) mmol/L Potassium 4.4 (3.3-5.1) mmol/L Chloride 104 (96-108) mmol/L Carbon Dioxide 30 H (22-29) mmol/L Anion Gap 11 L (12-20) BUN 21 H (9-16) mg/dL Creatinine 1.29 (0.5-1.4) mg/dL Estim Creat Clear Calc 78.8 Estimated GFR 59 Random Glucose 120 H (60-115) mg/dL Calcium 9.6 (8.4-10.2) mg/dL Urine Opiates Screen (Not Detect) Urine Fentanyl Screen (Not Detect) Ur Barbiturates Screen (Not Detect) Ur Phencyclidine Scrn (Not Detect) Ur Amphetamines Screen (Not Detect) U Benzodiazepines Scrn (Not Detect) Urine Cocaine Screen (Not Detect) U Marijuana (THC) Screen (Not Detect) COVID-19 (KHUSHI) (Negative) COVID-19 Clin Com Discharge Plan Discharge Clinical Impression: Chronic post-traumatic stress disorder (PTSD), Anxiety, Depression Patient Disposition: Home, Self-Care Additional Instructions: You are being sent to a respite facility for further management of your anxiety, depression, and PTSD. Please feel free to return to the emergency department with any new or worsening symptoms or concerns. Prescriptions: No Action mirtazapine 7.5 mg Tablet 7.5 mg PO BEDTIME PRN (Reason: Insomnia) 0RF sertraline 100 mg Tablet 100 mg PO DAILY 0RF clonazepam 1 mg Tablet 1 mg PO BID 0RF ibuprofen 600 mg Tablet 600 mg PO Q8H PRN (Reason: Pain) 0RF bupropion HCl 300 mg Tablet Extended Release 24 Hr 300 mg PO DAILY 0RF olanzapine 20 mg Tablet 20 mg PO BEDTIME 0RF Interventions: ED Discharge Assessment Last Done: 08/14/21 17:56 Discharge Date/Time: 08/14/21 17:57
--- NOTE | 2021-08-14 13:22 | PC.NURSE ---
PATIENT IS ALERT AND COOPERATIVE AWAITING MEDICAL CLEARANCE FOR N REFERRAL.
[2021-08-14 13:34] LABS: COVID-19 Test Negative (Negative); IDNOW Serial# 16C4AD1C
[2021-08-14 13:35] LABS: Basophils Percent Auto 0.3 % (0-2); Eosinophils Absolute Auto 0.1 X10*3/uL (0.0-0.4); Eosinophils Percent Auto 1.3 % (0-4); Imm Gran Abs Auto 0.02 X10*3/uL (0.00-0.03); Imm Gran Pct Auto 0.3 % (0.0-0.4); Lymphocytes Absolute Auto 2.3 X10*3/uL (1.2-4.9); Lymphocytes Percent Auto 32.9 % (20-40); MANUAL DIFF FLAG NO; Mean Corpuscular HGB Conc 32.6 g/dl (31.0-36.0); Mean Corpuscular Volume 89.2 fL (80.0-98.0); Mean Platelet Volume 9.3 fL (9.4-12.4); Monocytes Absolute Auto 0.8 X10*3/uL (0.1-1.2); Neutrophils Absolute Auto 3.7 x10*3/uL (2.0-8.3); Neutrophils Percent Auto 53.2 % (45-73); Platelet Count 292 X10*3/uL (160-400); Red Blood Count 4.82 X10*6/uL (4.60-5.80); Red Cell Distribution Width 14.2 % (11.0-16.0); White Blood Count 6.9 X10*3/uL (4.8-10.8)
[2021-08-14 13:41] LABS: Amphetamine Screen Urine Not Detected (Not Detect); Barbiturates, Urine Not Detected (Not Detect); Benzodiazepines Screen Urine POSITIVE (Not Detect); Cannabinoid Screen Urine Not Detected (Not Detect); Cocaine Screen Urine POSITIVE (Not Detect); Fentanyl, urine POSITIVE (Not Detect); Opiate Screen Urine Not Detected (Not Detect); Phencyclidine Screen Urine Not Detected (Not Detect)
--- NOTE | 2021-08-14 13:42 | PC.NURSE ---
PT REFERRED TO [facility].
[2021-08-14 14:01] LABS: Anion Gap 11 (12-20); Blood Urea Nitrogen 21 mg/dL (9-16); Calcium 9.6 mg/dL (8.4-10.2); Carbon Dioxide 30 mmol/L (22-29); Chloride 104 mmol/L (96-108); Creatinine Clr Calc Pharmacy 78.8; Estimated Glomerular Filt Rate 59; Glucose Random 120 mg/dL (60-115); Potassium 4.4 mmol/L (3.3-5.1); Sodium 141 mmol/L (135-145)
--- NOTE | 2021-08-14 14:51 | PC.NURSE ---
[facility]N IN TO ASSESS PATIENT AT THIS TIME.
== END 2021-08-14 17:57 | disposition home or self-care (01) ==
PROVIDERS: Nurse Practitioner Family; Emergency Provider Emergency Medicine
DX: F33.1 Major depressive disorder, recurrent, moderate (principal); F43.10 Post-traumatic stress disorder, unspecified; F41.1 Generalized anxiety disorder; F43.0 Acute stress reaction; F17.210 Nicotine dependence, cigarettes, uncomplicated; Z71.6 Tobacco abuse counseling; Z20.822 Contact with and (suspected) exposure to COVID-19; Z79.899 Other long term (current) drug therapy
CPT/HCPCS: 36415; 80048; 80307; 85025; 87635; 93005; 99283

== ENCOUNTER 2021-09-06 12:24 | Inpatient (IN) | payer OTHER, SELFPAY ==
[2021-09-06 12:52] VITALS: BP 121/68; PULSE 79; RESP 19; TEMP 36.6; O2SAT 98; BMI 29.5
--- NOTE | 2021-09-06 13:13 | ED_ITS ---
HPI - Psych General Chief Complaint: Psychiatric Symptoms Stated Complaint: CRISIS/SI Time Seen by Provider: 09/06/21 13:09 Source: patient Mode of arrival: ambulatory Limitations: no limitations History of Present Illness MD complaint: suicidal ideation and feels depressed Onset (ago): week(s) Duration: getting worse History of same: Yes Relieving factors: none Exacerbating factors: other (off of meds, homeless) Context: not taking psychiatric medications and significant life stressor Associated psychiatric symptoms: depression and suicidal ideation Associated symptoms: denies other symptoms Treatments prior to arrival: none If self harm: admits thoughts of self harm Related Data Home Medications Medication Instructions Recorded Confirmed bupropion HCl 300 mg 24 hr tablet, 300 mg PO DAILY 08/14/21 08/14/21 extended release clonazepam 1 mg tablet 1 mg PO BID 08/14/21 08/14/21 ibuprofen 600 mg tablet 600 mg PO Q8H PRN 08/14/21 08/14/21 mirtazapine 7.5 mg tablet 7.5 mg PO BEDTIME PRN 08/14/21 08/14/21 olanzapine 20 mg tablet 20 mg PO BEDTIME 08/14/21 08/14/21 sertraline 100 mg tablet 100 mg PO DAILY 08/14/21 08/14/21 Allergies Allergy/AdvReac Type Severity Reaction Status Date / Time No Known Allergies Allergy Verified 11/07/20 02:03 [No Known Allergies*] Review of Systems Review of Systems: Constitutional : No Fever, No Chills ENT/Mouth : No Ear Pain, No Nasal Congestion, No sore throat Eyes: No Eye Pain, No Swelling, No Redness Cardiovascular : No Chest Pain, No SOB Respiratory : No Cough, No Sputum, No Dyspnea Gastrointestinal : No Nausea, No Vomiting, No Diarrhea, No Hematochezia, No Melena Genitourinary : No Dysuria, No Urinary Frequency, No Hematuria Musculoskeletal : No Myalgias Skin : No Skin Lesions, No rash Neuro : No Weakness, No Numbness, No Paresthesias, No Dizziness, No Headache Psych : positive Anxiety, positive Depression, positive SI no HI Heme/Lymph: No Lymphadenopathy Endocrine : No Polyuria, No Polydipsia All other systems reviewed and are negative [facility] Past Medical History Attestation statement: The following information was validated with the patient. Medical History Anxiety Chronic post-traumatic stress disorder (PTSD) Depression Social History Social History Household Members: None Housing: Homeless Do you presently have visiting nurse or other home services: No Alcohol intake: current Alcohol intake frequency: a few times a month Patient Tobacco Use Status: Current everyday Tobacco user Tobacco use type: Cigarette Cigarette Packs Per Day: 1 Cigarettes Per Day: 5 Years Smoked: 20 Second Hand Smoke Exposure: No Substance Use Type: Crack/Cocaine Advance Directives: No Advance Directives Information Provided: No service: No Sexual orientation: Straight/Heterosexual Physical Exam Vital Signs: Vital Signs: Last Vital Signs Temp 98.0 F 09/06/21 13:47 Pulse 71 09/06/21 13:47 Resp 19 09/06/21 13:47 BP 126/74 09/06/21 13:47 Pulse Ox 99 09/06/21 13:47 BMI result Body Mass Index 29.5 Appearance: Alert. Oriented X3. No acute distress. Calm and cooperative Eyes: Pupils equal, round and reactive to light. ENT: Pharynx normal. Neck: Normal inspection. Neck supple. CVS: Normal heart rate and rhythm. Pulses normal. Respiratory: No respiratory distress. Breath sounds normal. Abdomen: Soft and non-tender. Skin: Skin warm and dry. Normal skin color. Normal skin turgor. Extremities: No lower extremity edema. No calf ttp Neuro: Oriented X 3. No motor deficit. No sensory deficit. CN 2-12 intact Course Course Course Narrative: Physician observation started at 221pm. Patient placed in physician observation because the patient needed more time for [facility] to assess the need for inpatient psychiatric admission. At the time observation was started the patient's vitals were stable, patient is alert and oriented, Neuro: nonfocal, CV RRR, Lungs clear MDM - Psych MDM Narrative Medical decision making narrative: 51 yo male with hx of PTSD, opiate us disorder, mood disorder here off meds x 3 weeks, reports SI at this time will need labs/COVID swab, [facility]N consult Lab Data Result diagrams: 09/06/21 13:41 09/06/21 13:42 Labs: Lab Results 09/06/21 09/06/21 09/06/21 Range/Units 13:41 13:42 13:42 WBC 6.7 (4.8-10.8) X10*3/uL RBC 5.19 (4.60-5.80) X10*6/uL Hgb 15.2 (14.0-18.0) g/dl Hct 45.9 (42.0-52.0) % MCV 88.4 (80.0-98.0) fL MCH 29.3 (27.0-33.0) pg MCHC 33.1 (31.0-36.0) g/dl RDW 14.7 (11.0-16.0) % Plt Count 280 (160-400) X10*3/uL MPV 9.7 (9.4-12.4) fL Immature Gran % (Auto) 0.1 (0.0-0.4) % Neut % (Auto) 62.3 (45-73) % Lymph % (Auto) 25.7 (20-40) % Catron % (Auto) 10.9 (2-11) % Eos % (Auto) 0.6 (0-4) % Baso % (Auto) 0.4 (0-2) % Lymph # (Auto) 1.7 (1.2-4.9) X10*3/uL Catron # (Auto) 0.7 (0.1-1.2) X10*3/uL Eos # (Auto) 0.0 (0.0-0.4) X10*3/uL Baso # (Auto) 0.0 (0.0-0.2) X10*3/uL Abs Immat Gran (auto) 0.01 (0.00-0.03) X10*3/uL Absolute Neuts (auto) 4.2 (2.0-8.3) x10*3/uL Absolute Nucleated RBC 0.000 (0.0-0.012) X10*3/uL Nucleated RBC % (auto) 0.0 (0.0-0.2) /100WBC Sodium 142 (135-145) mmol/L Potassium 4.2 (3.3-5.1) mmol/L Chloride 104 (96-108) mmol/L Carbon Dioxide 29 (22-29) mmol/L Anion Gap 13 (12-20) BUN 17 H (9-16) mg/dL Creatinine 1.21 (0.5-1.4) mg/dL Estim Creat Clear Calc 80.4 Estimated GFR > 60 Random Glucose 103 (60-115) mg/dL Calcium 9.9 (8.4-10.2) mg/dL Total Bilirubin 0.5 (0.0-1.0) mg/dL Direct Bilirubin 0.2 (0.0-0.5) mg/dL AST 26 D (5-37) U/L ALT 28 (0-40) U/L Alkaline Phosphatase 53 (39-117) U/L Total Protein 7.7 (6.5-8.0) g/dL Albumin 4.7 (3.5-5.0) g/dL Ethyl Alcohol mg/dL COVID-19 (KHUSHI) Negative (Negative) COVID-19 Clin Com See Note 09/06/21 Range/Units 13:42 WBC (4.8-10.8) X10*3/uL RBC (4.60-5.80) X10*6/uL Hgb (14.0-18.0) g/dl Hct (42.0-52.0) % MCV (80.0-98.0) fL MCH (27.0-33.0) pg MCHC (31.0-36.0) g/dl RDW (11.0-16.0) % Plt Count (160-400) X10*3/uL MPV (9.4-12.4) fL Immature Gran % (Auto) (0.0-0.4) % Neut % (Auto) (45-73) % Lymph % (Auto) (20-40) % Catron % (Auto) (2-11) % Eos % (Auto) (0-4) % Baso % (Auto) (0-2) % Lymph # (Auto) (1.2-4.9) X10*3/uL Catron # (Auto) (0.1-1.2) X10*3/uL Eos # (Auto) (0.0-0.4) X10*3/uL Baso # (Auto) (0.0-0.2) X10*3/uL Abs Immat Gran (auto) (0.00-0.03) X10*3/uL Absolute Neuts (auto) (2.0-8.3) x10*3/uL Absolute Nucleated RBC (0.0-0.012) X10*3/uL Nucleated RBC % (auto) (0.0-0.2) /100WBC Sodium (135-145) mmol/L Potassium (3.3-5.1) mmol/L Chloride (96-108) mmol/L Carbon Dioxide (22-29) mmol/L Anion Gap (12-20) BUN (9-16) mg/dL Creatinine (0.5-1.4) mg/dL Estim Creat Clear Calc Estimated GFR Random Glucose (60-115) mg/dL Calcium (8.4-10.2) mg/dL Total Bilirubin (0.0-1.0) mg/dL Direct Bilirubin (0.0-0.5) mg/dL AST (5-37) U/L ALT (0-40) U/L Alkaline Phosphatase (39-117) U/L Total Protein (6.5-8.0) g/dL Albumin (3.5-5.0) g/dL Ethyl Alcohol < 10 mg/dL COVID-19 (KHUSHI) (Negative) COVID-19 Clin Com Discharge Plan Discharge Clinical Impression: Depression Qualifiers: Depression Type: unspecified Qualified Code(s): F32.A - Depression, unspecified Patient Disposition: Still a Patient Prescriptions: No Action mirtazapine 7.5 mg Tablet 7.5 mg PO BEDTIME PRN (Reason: Insomnia) 0RF sertraline 100 mg Tablet 100 mg PO DAILY 0RF clonazepam 1 mg Tablet 1 mg PO BID 0RF ibuprofen 600 mg Tablet 600 mg PO Q8H PRN (Reason: Pain) 0RF bupropion HCl 300 mg Tablet Extended Release 24 Hr 300 mg PO DAILY 0RF olanzapine 20 mg Tablet 20 mg PO BEDTIME 0RF
[2021-09-06] MEDS: clonazePAM 1 MG TABLET PO ×2 (13:43→20:35)
[2021-09-06] MEDS: Nicotine 21 MG PATCH.TD24 TRANSDERMA (13:43)
[2021-09-06 13:47] VITALS: BP 126/74; PULSE 71; RESP 19; TEMP 36.7; O2SAT 99
[2021-09-06 13:48] LABS: MANUAL DIFF FLAG NO
[2021-09-06 13:54] LABS: Basophils Percent Auto 0.4 % (0-2); Eosinophils Percent Auto 0.6 % (0-4); Hematocrit 45.9 % (42.0-52.0); Hemoglobin 15.2 g/dl (14.0-18.0); Imm Gran Abs Auto 0.01 X10*3/uL (0.00-0.03); Imm Gran Pct Auto 0.1 % (0.0-0.4); Lymphocytes Absolute Auto 1.7 X10*3/uL (1.2-4.9); Lymphocytes Percent Auto 25.7 % (20-40); Mean Corpuscular HGB Conc 33.1 g/dl (31.0-36.0); Mean Corpuscular Hemoglobin 29.3 pg (27.0-33.0); Mean Corpuscular Volume 88.4 fL (80.0-98.0); Mean Platelet Volume 9.7 fL (9.4-12.4); Monocytes Absolute Auto 0.7 X10*3/uL (0.1-1.2); Monocytes Percent Auto 10.9 % (2-11); Neutrophils Absolute Auto 4.2 x10*3/uL (2.0-8.3); Neutrophils Percent Auto 62.3 % (45-73); Platelet Count 280 X10*3/uL (160-400); Red Blood Count 5.19 X10*6/uL (4.60-5.80); Red Cell Distribution Width 14.7 % (11.0-16.0); White Blood Count 6.7 X10*3/uL (4.8-10.8)
[2021-09-06 14:10] LABS: Ethanol < 10 mg/dL
[2021-09-06 14:11] LABS: COVID-19 Test Negative (Negative)
[2021-09-06 14:13] LABS: Alanine Aminotransferase 28 U/L (0-40); Albumin Level 4.7 g/dL (3.5-5.0); Alkaline Phosphatase 53 U/L (39-117); Anion Gap 13 (12-20); Aspartate Amino Transferase 26 U/L (5-37); Bilirubin Direct 0.2 mg/dL (0.0-0.5); Bilirubin Total 0.5 mg/dL (0.0-1.0); Blood Urea Nitrogen 17 mg/dL (9-16); Calcium 9.9 mg/dL (8.4-10.2); Carbon Dioxide 29 mmol/L (22-29); Chloride 104 mmol/L (96-108); Creatinine Clr Calc Pharmacy 80.4; Estimated Glomerular Filt Rate > 60; Glucose Random 103 mg/dL (60-115); Potassium 4.2 mmol/L (3.3-5.1); Sodium 142 mmol/L (135-145); Total Protein 7.7 g/dL (6.5-8.0)
[2021-09-06 18:56] VITALS: BP 107/70; PULSE 97; RESP 15; TEMP 36.7; O2SAT 96
[2021-09-06] MEDS: Mirtazapine 7.5 MG TABLET PO (20:34)
[2021-09-06] MEDS: OLANZapine 10 MG TABLET 20 MG PO (20:35)
[2021-09-06 21:03] LABS: Amphetamine Screen Urine Not Detected (Not Detect); Barbiturates, Urine Not Detected (Not Detect); Benzodiazepines Screen Urine Not Detected (Not Detect); Cannabinoid Screen Urine Not Detected (Not Detect); Cocaine Screen Urine POSITIVE (Not Detect); Fentanyl, urine POSITIVE (Not Detect); Opiate Screen Urine Not Detected (Not Detect); Phencyclidine Screen Urine Not Detected (Not Detect)
--- NOTE | 2021-09-07 | ECG_ITS ---
Test Reason : MEDICAL CLEARANCE Blood Pressure : / mmHG Vent. Rate : 085 BPM Atrial Rate : 085 BPM P-R Int : 152 ms QRS Dur : 082 ms QT Int : 370 ms P-R-T Axes : 071 072 041 degrees QTc Int : 440 ms Normal sinus rhythm Normal ECG When compared with ECG of 14-AUG-2021 13:54, No significant change was found Referred By: Jesse Victoria Electronically Signed By:ARIE LEVY
[2021-09-07 06:00] VITALS: BP 112/62; PULSE 88; RESP 16; TEMP 36.8; O2SAT 95
--- NOTE | 2021-09-07 06:32 | PC.NURSE ---
Patient slept through the night, no distress observed/reported, patient's disposition is section 12 inpatient bed search per care team, medication compliant, behavior calm and quiet, VSS, will continue to monitor.
--- NOTE | 2021-09-07 07:04 | PC.NURSE ---
patient appears to remain at rest at present respirations are even and unlabored patient appears in no distress
[2021-09-07] MEDS: buPROPion HCl XL 300 MG TAB.ER.24H PO (10:10)
[2021-09-07] MEDS: Sertraline HCL 100 MG TABLET PO (10:10)
[2021-09-07] MEDS: clonazePAM 1 MG TABLET PO ×2 (10:10→20:11)
--- NOTE | 2021-09-07 17:18 | PC.NURSE ---
Quintin was admitted at 1416 to M3 from [facility] on [facility] for suicidal ideation with plan to overdose on prescribed medications. He reports having been off his prescribed clonazepam and wellbutrin XR - unable to attain refills- and attributes the exacerbation of depression to being off these medications. He blames outpatient providers at [facility] for his inability to get his meds refilled. He arrived with blister packed medication cards indicating noncompliance with sertraline and zyprexa for several months. Quintin reported almost daily use of crack cocaine for the past ten years, last use two days ago. The only thing I feel without crack is tired and depressed. On arrival to the unit Quintin is alert, fully oriented and olu but cooperative with admission process. He reports 8/10 depression and anxiety. He denies intent to harm himself on the unit and agrees to contact staff if this changes. He reports good sleep, good appetite and his abilty to focus is good at this time. Speech is quiet, olu but on topic. He denies perceptual disturbances of any kind. Quintin denies medical issues besides no upper teeth, He denies current physical complaint.
[2021-09-07] MEDS: OLANZapine 10 MG TABLET 20 MG PO (20:11)
[2021-09-07] MEDS: Mirtazapine 7.5 MG TABLET PO (20:11)
[2021-09-07] MEDS: Nicotine Polacrilex 2 MG GUM 4 MG BUCCAL (20:29)
[2021-09-07 20:45] VITALS: BP 111/62; PULSE 93; RESP 18; TEMP 36.6; O2SAT 97
[2021-09-08 07:00] VITALS: BMI 31.1
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
[2021-09-08 09:05] VITALS: BP 126/63; PULSE 97; RESP 17; TEMP 36.7; O2SAT 95
[2021-09-08 09:06] LABS: Estimated Average Glucose 108 mg/dL; Hemoglobin A1c % 5.4 %
[2021-09-08 09:09] LABS: Cholesterol 158 mg/dL; HDL Cholesterol 31 mg/dL; LDL Cholesterol Calculated 103 mg/dl; Triglycerides 122 mg/dL
[2021-09-08] MEDS: Sertraline HCL 100 MG TABLET PO (09:24)
[2021-09-08] MEDS: clonazePAM 1 MG TABLET PO ×2 (09:24→20:18)
[2021-09-08] MEDS: Nicotine 21 MG PATCH.TD24 TRANSDERMA (09:24)
[2021-09-08] MEDS: buPROPion HCl XL 300 MG TAB.ER.24H PO (09:24)
[2021-09-08 09:31] LABS: Free T4 (Free Thyroxine) 0.86 ng/dL (0.71-1.85); Thyroid Stimulating Hormone 0.31 uIU/mL (0.32-4.0)
[2021-09-08 09:54] LABS: Vitamin B12 < 146 pg/mL (200-900)
[2021-09-08 20:16] VITALS: BP 102/65; PULSE 107; TEMP 36.6; O2SAT 95
[2021-09-08] MEDS: OLANZapine 10 MG TABLET 20 MG PO (20:18)
[2021-09-08] MEDS: Mirtazapine 7.5 MG TABLET PO (20:18)
[2021-09-09 08:45] VITALS: BP 112/69; PULSE 93; RESP 15; TEMP 36.6; O2SAT 94
[2021-09-09] MEDS: Nicotine 21 MG PATCH.TD24 TRANSDERMA (08:54)
[2021-09-09] MEDS: buPROPion HCl XL 300 MG TAB.ER.24H PO (08:55)
[2021-09-09] MEDS: Sertraline HCL 100 MG TABLET PO (08:55)
[2021-09-09] MEDS: clonazePAM 1 MG TABLET PO ×2 (08:55→20:04)
[2021-09-09] MEDS: Folic Acid 1 MG TABLET PO (11:28)
[2021-09-09] MEDS: Cyanocobalamin (Vitamin B-12) 1,000 MCG TABLET 1000 MCG PO (11:28)
[2021-09-09] MEDS: Multivitamin TABLET 1 TAB PO (11:28)
--- NOTE | 2021-09-09 14:05 | P.PNPSI_ITS ---
Subjective Subjective Date of Service: 09/09/21 Reason For Visit: SI Interim History: pt found sleeping soundly in bed, easily rousable, comes to interview room for interview. no complaints or requests. fairly inert. informed of low B12 level and that repletion will be started. denies gastric bypass Hx or pernicious anemia. acknowledges poor diet recently. per staff, spent all day in bed yesterday. anx 7, dep 8. denies SI. Mental Status Exam Mental Status Exam Narrative: appropriately dressed and groomed. general PMR. cooperative with interview. speech nml rate, decr amount, decr loudness, flattened tone, nml latency. thoughts linear and logical. affect constricted, consistent with context, normo-intense, non-labile. mood depressed and anxious no SI/HI/AVH expressed. Diagnostics Vital Signs (24Hr): Vital Signs - 24 hr 09/08/21 20:16 09/09/21 08:45 Temperature 97.8 F 97.9 F Pulse Rate 107 H 93 Respiratory Rate 15 Blood Pressure 102/65 112/69 Pulse Oximetry 95 94 BMI result Body Mass Index 31.1 Labs Results: 09/06/21 13:41 09/06/21 13:42 Labs: Laboratory Results - last 48 hr 09/08/21 09/08/21 09/08/21 08:39 08:39 08:39 Estimat Average Glucose 108 Hemoglobin A1c % 5.4 Triglycerides 122 Cholesterol 158 LDL Cholesterol, Calc 103 HDL Cholesterol 31 Vitamin B12 < 146 L Folate 6.0 TSH 0.31 L Free T4 0.86 Medications Medications Current Medications Al Hydroxide/Mg Hydroxide (Magnesium Hydrox/Alum Hydrox 30 Ml Oral.Susp) 30 ml PO Q6H PRN PRN Reason: Heartburn/Nausea Bupropion HCl (Bupropion Hcl Xl 300 Mg Tab.Er.24h) 300 mg PO DAILY [facility] Last Admin: 09/09/21 08:55 Dose: 300 mg Documented by: Clonazepam (Clonazepam 1 Mg Tablet) 1 mg PO BID [facility] Last Admin: 09/09/21 08:55 Dose: 1 mg Documented by: Cyanocobalamin (Cyanocobalamin (Vitamin B-12) 1,000 Mcg Tablet) 1,000 mcg PO DAILY [facility] Last Admin: 09/09/21 11:28 Dose: 1,000 mcg Documented by: Folic Acid (Folic Acid 1 Mg Tablet) 1 mg PO DAILY [facility] Last Admin: 09/09/21 11:28 Dose: 1 mg Documented by: Hydroxyzine HCl (Hydroxyzine Hcl 25 Mg Tablet) 25 mg PO BEDTIME PRN PRN Reason: Anxiety Ibuprofen (Ibuprofen 600 Mg Tablet) 600 mg PO Q8H PRN PRN Reason: Pain, Moderate (Pain Scale 4-6 Magnesium Hydroxide (Milk Of Magnesia 30 Ml Oral.Susp) 30 ml PO DAILY PRN PRN Reason: Constipation Mirtazapine (Mirtazapine 7.5 Mg Tablet) 7.5 mg PO BEDTIME [facility] Last Admin: 09/08/21 20:18 Dose: 7.5 mg Documented by: Multivitamins/Vitamin C (Multivitamin Tablet) 1 tab PO DAILY [facility] Last Admin: 09/09/21 11:28 Dose: 1 tab Documented by: Nicotine (Nicotine 21 Mg Patch.Td24) 21 mg TRANSDERMA DAILY [facility] Last Admin: 09/09/21 08:54 Dose: 21 mg Documented by: Nicotine Polacrilex (Nicotine Polacrilex 2 Mg Gum) 4 mg BUCCAL Q2H PRN PRN Reason: Nicotine Cravings Last Admin: 09/07/21 20:29 Dose: 4 mg Documented by: Olanzapine (Olanzapine 10 Mg Tablet) 20 mg PO BEDTIME [facility] Last Admin: 09/08/21 20:18 Dose: 20 mg Documented by: Sertraline HCl (Sertraline Hcl 100 Mg Tablet) 100 mg PO DAILY [facility] Last Admin: 09/09/21 08:55 Dose: 100 mg Documented by: Trazodone HCl (Trazodone Hcl 50 Mg Tablet) 50 mg PO BEDTIME PRN PRN Reason: Insomnia Allergies Allergies Allergy/AdvReac Type Severity Reaction Status Date / Time No Known Allergies Allergy Verified 11/07/20 02:03 [No Known Allergies*] Assessment & Plan Assessment & Plan (1) Depression: Qualifiers: Depression Type: unspecified Qualified Code(s): F32.A - Depression, unspecified Status: Acute Code(s): F32.A - Depression, unspecified (2) Chronic post-traumatic stress disorder (PTSD): Status: Chronic Code(s): F43.12 - Post-traumatic stress disorder, chronic (3) Cocaine abuse: Status: Acute Code(s): F14.10 - Cocaine abuse, uncomplicated Plan restarted home medications. allow to detox from cocaine. refer to [facility]. discharge once stabilized. I spent ___20___ minutes with the patient and/or on the patient floor today, greater than?50% of which was spent counseling/coordinating care. Reason for contiued inpatient stay Substantial Risk for: harm to self, inability to function and rapid decompensation
[2021-09-09] MEDS: traZODone HCL 50 MG TABLET PO (20:04)
[2021-09-09] MEDS: Mirtazapine 7.5 MG TABLET PO (20:04)
[2021-09-09] MEDS: OLANZapine 10 MG TABLET 20 MG PO (20:04)
[2021-09-09 21:00] VITALS: BP 123/69; PULSE 79; RESP 18; TEMP 36.7; O2SAT 98
[2021-09-10 08:38] VITALS: BP 97/55; PULSE 82; RESP 16; TEMP 36.2; O2SAT 96
[2021-09-10] MEDS: Nicotine 21 MG PATCH.TD24 TRANSDERMA (09:31)
[2021-09-10] MEDS: Sertraline HCL 100 MG TABLET PO (09:32)
[2021-09-10] MEDS: Folic Acid 1 MG TABLET PO (09:32)
[2021-09-10] MEDS: Cyanocobalamin (Vitamin B-12) 1,000 MCG TABLET 1000 MCG PO (09:32)
[2021-09-10] MEDS: Multivitamin TABLET 1 TAB PO (09:32)
[2021-09-10] MEDS: clonazePAM 1 MG TABLET PO ×2 (09:32→17:03)
[2021-09-10] MEDS: buPROPion HCl XL 300 MG TAB.ER.24H PO (09:32)
--- NOTE | 2021-09-10 11:05 | PC.NURSE ---
Patient alert and cooperative, denies any pain or discomfort, took all meds without difficulty, ate breakfast without issue. Will continue to monitor.
--- NOTE | 2021-09-10 19:46 | HO.PSYCHPN ---
Subjective Subjective Date of Service: 09/10/21 Reason For Visit: SI Interim History: pt found resting in bed. easily rousable. asks that klonopin be changed to 0900 and 1700, as BID HS dose is not useful to him for anxiety control. c/o continued poor sleep, agrees to increase remeron from 7.5 mg to 15 mg QHS. per staff, med-compliant. slept well. Mental Status Exam Mental Status Exam Narrative: appropriately dressed and groomed. general PMR. cooperative with interview. speech nml rate, decr amount, decr loudness, flattened tone, nml latency. thoughts linear and logical. affect constricted, consistent with context, normo-intense, non-labile. mood depressed and anxious. no SI/HI/AVH expressed. Diagnostics Vital Signs (24Hr): Vital Signs - 24 hr 09/09/21 21:00 09/10/21 08:38 Temperature 98.0 F 97.2 F Pulse Rate 79 82 Respiratory Rate 18 16 Blood Pressure 123/69 97/55 L Pulse Oximetry 98 96 BMI result Body Mass Index 31.1 Labs Results: 09/06/21 13:41 09/06/21 13:42 Medications Medications Current Medications Al Hydroxide/Mg Hydroxide (Magnesium Hydrox/Alum Hydrox 30 Ml Oral.Susp) 30 ml PO Q6H PRN PRN Reason: Heartburn/Nausea Bupropion HCl (Bupropion Hcl Xl 300 Mg Tab.Er.24h) 300 mg PO DAILY [facility] Last Admin: 09/10/21 09:32 Dose: 300 mg Documented by: Clonazepam (Clonazepam 1 Mg Tablet) 1 mg PO BID@0900,1700 [facility] Last Admin: 09/10/21 17:03 Dose: 1 mg Documented by: Cyanocobalamin (Cyanocobalamin (Vitamin B-12) 1,000 Mcg Tablet) 1,000 mcg PO DAILY [facility] Last Admin: 09/10/21 09:32 Dose: 1,000 mcg Documented by: Folic Acid (Folic Acid 1 Mg Tablet) 1 mg PO DAILY [facility] Last Admin: 09/10/21 09:32 Dose: 1 mg Documented by: Hydroxyzine HCl (Hydroxyzine Hcl 25 Mg Tablet) 25 mg PO BEDTIME PRN PRN Reason: Anxiety Ibuprofen (Ibuprofen 600 Mg Tablet) 600 mg PO Q8H PRN PRN Reason: Pain, Moderate (Pain Scale 4-6 Magnesium Hydroxide (Milk Of Magnesia 30 Ml Oral.Susp) 30 ml PO DAILY PRN PRN Reason: Constipation Mirtazapine (Mirtazapine 15 Mg Tablet) 15 mg PO BEDTIME [facility] Multivitamins/Vitamin C (Multivitamin Tablet) 1 tab PO DAILY [facility] Last Admin: 09/10/21 09:32 Dose: 1 tab Documented by: Nicotine (Nicotine 21 Mg Patch.Td24) 21 mg TRANSDERMA DAILY [facility] Last Admin: 09/10/21 09:31 Dose: 21 mg Documented by: Nicotine Polacrilex (Nicotine Polacrilex 2 Mg Gum) 4 mg BUCCAL Q2H PRN PRN Reason: Nicotine Cravings Last Admin: 09/07/21 20:29 Dose: 4 mg Documented by: Olanzapine (Olanzapine 10 Mg Tablet) 20 mg PO BEDTIME [facility] Last Admin: 09/09/21 20:04 Dose: 20 mg Documented by: Sertraline HCl (Sertraline Hcl 100 Mg Tablet) 100 mg PO DAILY [facility] Last Admin: 09/10/21 09:32 Dose: 100 mg Documented by: Trazodone HCl (Trazodone Hcl 50 Mg Tablet) 50 mg PO BEDTIME PRN PRN Reason: Insomnia Last Admin: 09/09/21 20:04 Dose: 50 mg Documented by: Allergies Allergies Allergy/AdvReac Type Severity Reaction Status Date / Time No Known Allergies Allergy Verified 11/07/20 02:03 [No Known Allergies*] Assessment & Plan Assessment & Plan (1) Depression: Qualifiers: Depression Type: unspecified Qualified Code(s): F32.A - Depression, unspecified Status: Acute Code(s): F32.A - Depression, unspecified (2) Chronic post-traumatic stress disorder (PTSD): Status: Chronic Code(s): F43.12 - Post-traumatic stress disorder, chronic (3) Cocaine abuse: Status: Acute Code(s): F14.10 - Cocaine abuse, uncomplicated Plan restarted home medications. remeron increased from 7.5 mg QHS to 15 mg QHS as of 09/10. allow to detox from cocaine. refer to [facility]. discharge once stabilized. I spent ___15___ minutes with the patient and/or on the patient floor today, greater than?50% of which was spent counseling/coordinating care. Reason for contiued inpatient stay Substantial Risk for: inability to function and rapid decompensation
[2021-09-10 20:00] VITALS: BP 113/72; PULSE 86; RESP 18; TEMP 36.8
[2021-09-10] MEDS: traZODone HCL 50 MG TABLET PO (20:20)
[2021-09-10] MEDS: OLANZapine 10 MG TABLET 20 MG PO (20:20)
[2021-09-10] MEDS: Mirtazapine 15 MG TABLET PO (20:20)
[2021-09-11 06:00] VITALS: BP 127/62; PULSE 89; RESP 16; TEMP 36.6; O2SAT 97
[2021-09-11] MEDS: clonazePAM 1 MG TABLET PO ×2 (09:05→17:15)
[2021-09-11] MEDS: buPROPion HCl XL 300 MG TAB.ER.24H PO (09:05)
[2021-09-11] MEDS: Folic Acid 1 MG TABLET PO (09:05)
[2021-09-11] MEDS: Nicotine 21 MG PATCH.TD24 TRANSDERMA (09:05)
[2021-09-11] MEDS: Cyanocobalamin (Vitamin B-12) 1,000 MCG TABLET 1000 MCG PO (09:05)
[2021-09-11] MEDS: Multivitamin TABLET 1 TAB PO (09:05)
[2021-09-11] MEDS: Sertraline HCL 100 MG TABLET PO (09:05)
--- NOTE | 2021-09-11 17:46 | P.PNPSI_ITS ---
Subjective Subjective Date of Service: 09/11/21 Reason For Visit: SI Interim History: pt found resting in bed. rousable. no change in presentation. feels depressed. MD educated pt about behavioral activation therapy and encouraged pt to be up and out of bed participating in activities as much as he was able. per staff, anxious and depressed. slept well overnight. back in bed most of days. Mental Status Exam Mental Status Exam Narrative: appropriately dressed and groomed. general PMR. cooperative with interview. speech nml rate, decr amount, decr loudness, flattened tone, nml latency. thoughts linear and logical. affect constricted, consistent with context, hypo-intense, non-labile. mood depressed and anxious. no SI/HI/AVH expressed. Diagnostics Vital Signs (24Hr): Vital Signs - 24 hr 09/10/21 20:00 09/11/21 06:00 Temperature 98.3 F 97.9 F Pulse Rate 86 89 Respiratory Rate 18 16 Blood Pressure 113/72 127/62 Pulse Oximetry 97 BMI result Body Mass Index 31.1 Labs Results: 09/06/21 13:41 09/06/21 13:42 Medications Medications Current Medications Al Hydroxide/Mg Hydroxide (Magnesium Hydrox/Alum Hydrox 30 Ml Oral.Susp) 30 ml PO Q6H PRN PRN Reason: Heartburn/Nausea Bupropion HCl (Bupropion Hcl Xl 300 Mg Tab.Er.24h) 300 mg PO DAILY [facility] Last Admin: 09/11/21 09:05 Dose: 300 mg Documented by: Clonazepam (Clonazepam 1 Mg Tablet) 1 mg PO BID@0900,1700 [facility] Last Admin: 09/11/21 17:15 Dose: 1 mg Documented by: Cyanocobalamin (Cyanocobalamin (Vitamin B-12) 1,000 Mcg Tablet) 1,000 mcg PO DAILY [facility] Last Admin: 09/11/21 09:05 Dose: 1,000 mcg Documented by: Folic Acid (Folic Acid 1 Mg Tablet) 1 mg PO DAILY [facility] Last Admin: 09/11/21 09:05 Dose: 1 mg Documented by: Hydroxyzine HCl (Hydroxyzine Hcl 25 Mg Tablet) 25 mg PO BEDTIME PRN PRN Reason: Anxiety Ibuprofen (Ibuprofen 600 Mg Tablet) 600 mg PO Q8H PRN PRN Reason: Pain, Moderate (Pain Scale 4-6 Magnesium Hydroxide (Milk Of Magnesia 30 Ml Oral.Susp) 30 ml PO DAILY PRN PRN Reason: Constipation Mirtazapine (Mirtazapine 15 Mg Tablet) 15 mg PO BEDTIME [facility] Last Admin: 09/10/21 20:20 Dose: 15 mg Documented by: Multivitamins/Vitamin C (Multivitamin Tablet) 1 tab PO DAILY [facility] Last Admin: 09/11/21 09:05 Dose: 1 tab Documented by: Nicotine (Nicotine 21 Mg Patch.Td24) 21 mg TRANSDERMA DAILY [facility] Last Admin: 09/11/21 09:05 Dose: 21 mg Documented by: Nicotine Polacrilex (Nicotine Polacrilex 2 Mg Gum) 4 mg BUCCAL Q2H PRN PRN Reason: Nicotine Cravings Last Admin: 09/07/21 20:29 Dose: 4 mg Documented by: Olanzapine (Olanzapine 10 Mg Tablet) 20 mg PO BEDTIME [facility] Last Admin: 09/10/21 20:20 Dose: 20 mg Documented by: Sertraline HCl (Sertraline Hcl 100 Mg Tablet) 100 mg PO DAILY [facility] Last Admin: 09/11/21 09:05 Dose: 100 mg Documented by: Trazodone HCl (Trazodone Hcl 50 Mg Tablet) 50 mg PO BEDTIME PRN PRN Reason: Insomnia Last Admin: 09/10/21 20:20 Dose: 50 mg Documented by: Allergies Allergies Allergy/AdvReac Type Severity Reaction Status Date / Time No Known Allergies Allergy Verified 11/07/20 02:03 [No Known Allergies*] Assessment & Plan Assessment & Plan (1) Depression: Qualifiers: Depression Type: unspecified Qualified Code(s): F32.A - Depression, unspecified Status: Acute Code(s): F32.A - Depression, unspecified (2) Chronic post-traumatic stress disorder (PTSD): Status: Chronic Code(s): F43.12 - Post-traumatic stress disorder, chronic (3) Cocaine abuse: Status: Acute Code(s): F14.10 - Cocaine abuse, uncomplicated Plan restarted home medications. remeron increased from 7.5 mg QHS to 15 mg QHS as of 09/10. allow to detox from cocaine. refer to [facility]. discharge once stabilized. I spent ___15___ minutes with the patient and/or on the patient floor today, greater than?50% of which was spent counseling/coordinating care. Patient educated on: therapeutic strategies Reason for contiued inpatient stay Substantial Risk for: harm to self, inability to function and rapid decompensation
[2021-09-11 20:10] VITALS: BP 110/72; PULSE 85; RESP 18; TEMP 530.6; TEMP 987; O2SAT 94
[2021-09-11] MEDS: OLANZapine 10 MG TABLET 20 MG PO (20:24)
[2021-09-11] MEDS: Mirtazapine 15 MG TABLET PO (20:24)
[2021-09-11] MEDS: traZODone HCL 50 MG TABLET PO (20:30)
[2021-09-12 08:45] VITALS: BP 101/57; PULSE 87; RESP 15; TEMP 36.6; O2SAT 96
[2021-09-12] MEDS: Nicotine 21 MG PATCH.TD24 TRANSDERMA (08:53)
[2021-09-12] MEDS: clonazePAM 1 MG TABLET PO ×2 (08:54→16:57)
[2021-09-12] MEDS: buPROPion HCl XL 300 MG TAB.ER.24H PO (08:54)
[2021-09-12] MEDS: Folic Acid 1 MG TABLET PO (08:54)
[2021-09-12] MEDS: Sertraline HCL 100 MG TABLET PO (08:54)
[2021-09-12] MEDS: Cyanocobalamin (Vitamin B-12) 1,000 MCG TABLET 1000 MCG PO (08:54)
[2021-09-12] MEDS: Multivitamin TABLET 1 TAB PO (08:54)
--- NOTE | 2021-09-12 14:58 | HO.PSYCHPN ---
Subjective Subjective Date of Service: 09/12/21 Reason For Visit: SI Interim History: pt found lying supine in bed, awake. appears with brighter affect. states he has been out on the unit a bit, attended art group. reports he spoke with SW today and has been calling [employer]'s. mood so-so. no complaints or requests. per staff, spent all day in bed yesterday. med-compliant. denies change in mood. denies SI/HI/AVH. Mental Status Exam Mental Status Exam Narrative: appropriately dressed and groomed. general PMR. cooperative with interview. speech nml rate, nml amount, decr loudness, flattened tone, nml latency. thoughts linear and logical. affect constricted, consistent with context, hypo-intense, non-labile. mood so-so. no SI/HI/AVH expressed. Diagnostics Vital Signs (24Hr): Vital Signs - 24 hr 09/11/21 20:10 09/12/21 08:45 Temperature 987.0 F H 97.9 F Pulse Rate 85 87 Respiratory Rate 18 15 Blood Pressure 110/72 101/57 L Pulse Oximetry 94 96 BMI result Body Mass Index 31.1 Labs Results: 09/06/21 13:41 09/06/21 13:42 Medications Medications Current Medications Al Hydroxide/Mg Hydroxide (Magnesium Hydrox/Alum Hydrox 30 Ml Oral.Susp) 30 ml PO Q6H PRN PRN Reason: Heartburn/Nausea Bupropion HCl (Bupropion Hcl Xl 300 Mg Tab.Er.24h) 300 mg PO DAILY [facility] Last Admin: 09/12/21 08:54 Dose: 300 mg Documented by: Clonazepam (Clonazepam 1 Mg Tablet) 1 mg PO BID@0900,1700 [facility] Last Admin: 09/12/21 08:54 Dose: 1 mg Documented by: Cyanocobalamin (Cyanocobalamin (Vitamin B-12) 1,000 Mcg Tablet) 1,000 mcg PO DAILY [facility] Last Admin: 09/12/21 08:54 Dose: 1,000 mcg Documented by: Folic Acid (Folic Acid 1 Mg Tablet) 1 mg PO DAILY [facility] Last Admin: 09/12/21 08:54 Dose: 1 mg Documented by: Hydroxyzine HCl (Hydroxyzine Hcl 25 Mg Tablet) 25 mg PO BEDTIME PRN PRN Reason: Anxiety Ibuprofen (Ibuprofen 600 Mg Tablet) 600 mg PO Q8H PRN PRN Reason: Pain, Moderate (Pain Scale 4-6 Magnesium Hydroxide (Milk Of Magnesia 30 Ml Oral.Susp) 30 ml PO DAILY PRN PRN Reason: Constipation Mirtazapine (Mirtazapine 15 Mg Tablet) 15 mg PO BEDTIME [facility] Last Admin: 09/11/21 20:24 Dose: 15 mg Documented by: Multivitamins/Vitamin C (Multivitamin Tablet) 1 tab PO DAILY [facility] Last Admin: 09/12/21 08:54 Dose: 1 tab Documented by: Nicotine (Nicotine 21 Mg Patch.Td24) 21 mg TRANSDERMA DAILY [facility] Last Admin: 09/12/21 08:53 Dose: 21 mg Documented by: Nicotine Polacrilex (Nicotine Polacrilex 2 Mg Gum) 4 mg BUCCAL Q2H PRN PRN Reason: Nicotine Cravings Last Admin: 09/07/21 20:29 Dose: 4 mg Documented by: Olanzapine (Olanzapine 10 Mg Tablet) 20 mg PO BEDTIME [facility] Last Admin: 09/11/21 20:24 Dose: 20 mg Documented by: Sertraline HCl (Sertraline Hcl 100 Mg Tablet) 100 mg PO DAILY [facility] Last Admin: 09/12/21 08:54 Dose: 100 mg Documented by: Trazodone HCl (Trazodone Hcl 50 Mg Tablet) 50 mg PO BEDTIME PRN PRN Reason: Insomnia Last Admin: 09/11/21 20:30 Dose: 50 mg Documented by: Allergies Allergies Allergy/AdvReac Type Severity Reaction Status Date / Time No Known Allergies Allergy Verified 11/07/20 02:03 [No Known Allergies*] Assessment & Plan Assessment & Plan (1) Depression: Qualifiers: Depression Type: unspecified Qualified Code(s): F32.A - Depression, unspecified Status: Acute Code(s): F32.A - Depression, unspecified (2) Chronic post-traumatic stress disorder (PTSD): Status: Chronic Code(s): F43.12 - Post-traumatic stress disorder, chronic (3) Cocaine abuse: Status: Acute Code(s): F14.10 - Cocaine abuse, uncomplicated Plan restarted home medications. remeron increased from 7.5 mg QHS to 15 mg QHS as of 09/10. allow to detox from cocaine. refer to [facility]. discharge once stabilized. I spent ___15___ minutes with the patient and/or on the patient floor today, greater than?50% of which was spent counseling/coordinating care. Reason for contiued inpatient stay Substantial Risk for: harm to self, inability to function and rapid decompensation
[2021-09-12 20:20] VITALS: BP 138/61; PULSE 92; RESP 18; TEMP 36.6; O2SAT 96
[2021-09-12] MEDS: OLANZapine 10 MG TABLET 20 MG PO (20:23)
[2021-09-12] MEDS: Mirtazapine 15 MG TABLET PO (20:24)
[2021-09-12] MEDS: traZODone HCL 50 MG TABLET PO (20:24)
[2021-09-13 08:15] VITALS: BP 116/72; PULSE 89; RESP 17; TEMP 36.6; O2SAT 94
[2021-09-13] MEDS: Nicotine 21 MG PATCH.TD24 TRANSDERMA (08:18)
[2021-09-13] MEDS: Multivitamin TABLET 1 TAB PO (08:19)
[2021-09-13] MEDS: clonazePAM 1 MG TABLET PO ×2 (08:19→17:40)
[2021-09-13] MEDS: Folic Acid 1 MG TABLET PO (08:19)
[2021-09-13] MEDS: Sertraline HCL 100 MG TABLET PO (08:19)
[2021-09-13] MEDS: Cyanocobalamin (Vitamin B-12) 1,000 MCG TABLET 1000 MCG PO (08:19)
[2021-09-13] MEDS: buPROPion HCl XL 300 MG TAB.ER.24H PO (08:19)
--- NOTE | 2021-09-13 13:58 | HO.PSYCHPN ---
Subjective Subjective Date of Service: 09/13/21 Reason For Visit: SI Interim History: pt found sleeping in his bed. rousable. states he awakened at 0300 this morning and only went back to sleep after breakfast. feeling tired. declines any change in meds. stats he is calling [facility] and working with SW on dispo plan. may be able to go to an aunt's house. no other requests or complaints. per staff, declined to meet with his assigned staff 1:1. no change in presentation. got PRN trazodone. slept last NOC. [facility]. Mental Status Exam Mental Status Exam Narrative: appropriately dressed and groomed. general PMR. cooperative with interview. speech nml rate, nml amount, nml loudness, flattened tone, nml latency. thoughts linear and logical. affect constricted, consistent with context, hypo-intense, non-labile. no SI/HI/AVH expressed. Diagnostics Vital Signs (24Hr): Vital Signs - 24 hr 09/12/21 20:20 09/13/21 08:15 Temperature 97.8 F 97.9 F Pulse Rate 92 89 Respiratory Rate 18 17 Blood Pressure 138/61 116/72 Pulse Oximetry 96 94 BMI result Body Mass Index 31.1 Labs Results: 09/06/21 13:41 09/06/21 13:42 Medications Medications Current Medications Al Hydroxide/Mg Hydroxide (Magnesium Hydrox/Alum Hydrox 30 Ml Oral.Susp) 30 ml PO Q6H PRN PRN Reason: Heartburn/Nausea Bupropion HCl (Bupropion Hcl Xl 300 Mg Tab.Er.24h) 300 mg PO DAILY [facility] Last Admin: 09/13/21 08:19 Dose: 300 mg Documented by: Clonazepam (Clonazepam 1 Mg Tablet) 1 mg PO BID@0900,1700 [facility] Last Admin: 09/13/21 08:19 Dose: 1 mg Documented by: Cyanocobalamin (Cyanocobalamin (Vitamin B-12) 1,000 Mcg Tablet) 1,000 mcg PO DAILY [facility] Last Admin: 09/13/21 08:19 Dose: 1,000 mcg Documented by: Folic Acid (Folic Acid 1 Mg Tablet) 1 mg PO DAILY [facility] Last Admin: 09/13/21 08:19 Dose: 1 mg Documented by: Hydroxyzine HCl (Hydroxyzine Hcl 25 Mg Tablet) 25 mg PO BEDTIME PRN PRN Reason: Anxiety Ibuprofen (Ibuprofen 600 Mg Tablet) 600 mg PO Q8H PRN PRN Reason: Pain, Moderate (Pain Scale 4-6 Magnesium Hydroxide (Milk Of Magnesia 30 Ml Oral.Susp) 30 ml PO DAILY PRN PRN Reason: Constipation Mirtazapine (Mirtazapine 15 Mg Tablet) 15 mg PO BEDTIME [facility] Last Admin: 09/12/21 20:24 Dose: 15 mg Documented by: Multivitamins/Vitamin C (Multivitamin Tablet) 1 tab PO DAILY [facility] Last Admin: 09/13/21 08:19 Dose: 1 tab Documented by: Nicotine (Nicotine 21 Mg Patch.Td24) 21 mg TRANSDERMA DAILY [facility] Last Admin: 09/13/21 08:18 Dose: 21 mg Documented by: Nicotine Polacrilex (Nicotine Polacrilex 2 Mg Gum) 4 mg BUCCAL Q2H PRN PRN Reason: Nicotine Cravings Last Admin: 09/07/21 20:29 Dose: 4 mg Documented by: Olanzapine (Olanzapine 10 Mg Tablet) 20 mg PO BEDTIME [facility] Last Admin: 09/12/21 20:23 Dose: 20 mg Documented by: Sertraline HCl (Sertraline Hcl 100 Mg Tablet) 100 mg PO DAILY [facility] Last Admin: 09/13/21 08:19 Dose: 100 mg Documented by: Trazodone HCl (Trazodone Hcl 50 Mg Tablet) 50 mg PO BEDTIME PRN PRN Reason: Insomnia Last Admin: 09/12/21 20:24 Dose: 50 mg Documented by: Allergies Allergies Allergy/AdvReac Type Severity Reaction Status Date / Time No Known Allergies Allergy Verified 11/07/20 02:03 [No Known Allergies*] Assessment & Plan Assessment & Plan (1) Depression: Qualifiers: Depression Type: unspecified Qualified Code(s): F32.A - Depression, unspecified Status: Acute Code(s): F32.A - Depression, unspecified (2) Chronic post-traumatic stress disorder (PTSD): Status: Chronic Code(s): F43.12 - Post-traumatic stress disorder, chronic (3) Cocaine abuse: Status: Acute Code(s): F14.10 - Cocaine abuse, uncomplicated Plan restarted home medications. remeron increased from 7.5 mg QHS to 15 mg QHS as of 09/10. detoxed from cocaine. referred to [facility]; pt wants [facility] only. discharge once stabilized. I spent ___20___ minutes with the patient and/or on the patient floor today, greater than?50% of which was spent counseling/coordinating care. Reason for contiued inpatient stay Substantial Risk for: harm to self, inability to function and rapid decompensation
[2021-09-13 20:25] VITALS: BP 122/69; PULSE 104; RESP 18; TEMP 36.8; O2SAT 96
[2021-09-13] MEDS: OLANZapine 10 MG TABLET 20 MG PO (20:27)
[2021-09-13] MEDS: traZODone HCL 50 MG TABLET PO (20:27)
[2021-09-13] MEDS: Mirtazapine 15 MG TABLET PO (20:27)
[2021-09-14 08:07] VITALS: BP 85/52; PULSE 67; RESP 16; TEMP 36.2; O2SAT 95
[2021-09-14] MEDS: Nicotine 21 MG PATCH.TD24 TRANSDERMA (08:09)
[2021-09-14] MEDS: Multivitamin TABLET 1 TAB PO (08:10)
[2021-09-14] MEDS: Folic Acid 1 MG TABLET PO (08:10)
[2021-09-14] MEDS: buPROPion HCl XL 300 MG TAB.ER.24H PO (08:10)
[2021-09-14] MEDS: Cyanocobalamin (Vitamin B-12) 1,000 MCG TABLET 1000 MCG PO (08:10)
[2021-09-14] MEDS: Sertraline HCL 100 MG TABLET PO (08:10)
[2021-09-14] MEDS: clonazePAM 1 MG TABLET PO ×2 (08:10→16:50)
--- NOTE | 2021-09-14 19:39 | P.PNPSI_ITS ---
Subjective Subjective Date of Service: 09/14/21 Reason For Visit: SI Interim History: Patient seen and discussed with team. Patient evaluated today and upon interview he reports im alright. Falls asleep around 10pm, sleeps for 5 hours, energy is so so. Mood is okay. Will go to live with his aunt on discharge. No questions or concerns. In the milieu, patient is safe, isolative in behavior, in room or walking halls with headphones. Denies SI/SIB/HI upon inquiry. Denies irritability or assaultive ideation. Says he feels safe. Medication Compliance: Yes Side effects from medications: No Attending Groups: Intermittent Review of Systems Acute medical concerns: No Medical Review of Systems: unchanged Mental Status Exam Mental Status Exam Narrative: appropriately dressed and groomed.? general PMR.? cooperative with interview.? speech nml rate, nml amount, nml loudness, flattened tone, nml latency.? thoughts linear and logical.? affect constricted, consistent with context, hypo- intense, non-labile.? no SI/HI/AVH expressed. Diagnostics Vital Signs (24Hr): Vital Signs - 24 hr 09/14/21 08:07 09/14/21 20:01 Temperature 97.2 F 96.7 F L Pulse Rate 67 87 Respiratory Rate 16 16 Blood Pressure 85/52 L 117/69 Pulse Oximetry 95 97 BMI result Body Mass Index 31.1 Labs Results: 09/06/21 13:41 09/06/21 13:42 Medications Medications Current Medications Al Hydroxide/Mg Hydroxide (Magnesium Hydrox/Alum Hydrox 30 Ml Oral.Susp) 30 ml PO Q6H PRN PRN Reason: Heartburn/Nausea Bupropion HCl (Bupropion Hcl Xl 300 Mg Tab.Er.24h) 300 mg PO DAILY [facility] Last Admin: 09/14/21 08:10 Dose: 300 mg Documented by: Clonazepam (Clonazepam 1 Mg Tablet) 1 mg PO BID@0900,1700 [facility] Last Admin: 09/14/21 16:50 Dose: 1 mg Documented by: Cyanocobalamin (Cyanocobalamin (Vitamin B-12) 1,000 Mcg Tablet) 1,000 mcg PO DAILY [facility] Last Admin: 09/14/21 08:10 Dose: 1,000 mcg Documented by: Folic Acid (Folic Acid 1 Mg Tablet) 1 mg PO DAILY [facility] Last Admin: 09/14/21 08:10 Dose: 1 mg Documented by: Hydroxyzine HCl (Hydroxyzine Hcl 25 Mg Tablet) 25 mg PO BEDTIME PRN PRN Reason: Anxiety Ibuprofen (Ibuprofen 600 Mg Tablet) 600 mg PO Q8H PRN PRN Reason: Pain, Moderate (Pain Scale 4-6 Magnesium Hydroxide (Milk Of Magnesia 30 Ml Oral.Susp) 30 ml PO DAILY PRN PRN Reason: Constipation Mirtazapine (Mirtazapine 15 Mg Tablet) 15 mg PO BEDTIME [facility] Last Admin: 09/14/21 20:07 Dose: 15 mg Documented by: Multivitamins/Vitamin C (Multivitamin Tablet) 1 tab PO DAILY [facility] Last Admin: 09/14/21 08:10 Dose: 1 tab Documented by: Nicotine (Nicotine 21 Mg Patch.Td24) 21 mg TRANSDERMA DAILY [facility] Last Admin: 09/14/21 08:09 Dose: 21 mg Documented by: Nicotine Polacrilex (Nicotine Polacrilex 2 Mg Gum) 4 mg BUCCAL Q2H PRN PRN Reason: Nicotine Cravings Last Admin: 09/07/21 20:29 Dose: 4 mg Documented by: Olanzapine (Olanzapine 10 Mg Tablet) 20 mg PO BEDTIME [facility] Last Admin: 09/14/21 20:07 Dose: 20 mg Documented by: Sertraline HCl (Sertraline Hcl 100 Mg Tablet) 100 mg PO DAILY [facility] Last Admin: 09/14/21 08:10 Dose: 100 mg Documented by: Trazodone HCl (Trazodone Hcl 50 Mg Tablet) 50 mg PO BEDTIME PRN PRN Reason: Insomnia Last Admin: 09/14/21 20:07 Dose: 50 mg Documented by: Allergies Allergies Allergy/AdvReac Type Severity Reaction Status Date / Time No Known Allergies Allergy Verified 11/07/20 02:03 [No Known Allergies*] Assessment & Plan Assessment & Plan (1) Depression: Qualifiers: Depression Type: unspecified Qualified Code(s): F32.A - Depression, unspecified Status: Acute Code(s): F32.A - Depression, unspecified (2) Chronic post-traumatic stress disorder (PTSD): Status: Chronic Code(s): F43.12 - Post-traumatic stress disorder, chronic (3) Cocaine abuse: Status: Acute Code(s): F14.10 - Cocaine abuse, uncomplicated Plan restarted home medications. remeron increased from 7.5 mg QHS to 15 mg QHS as of 09/10. detoxed from cocaine. referred to [facility]; pt wants [place] [facility] only. discharge once stabilized. I spent minutes with the patient and/or on the patient floor today, greater than?50% of which was spent counseling/coordinating care. Patient educated on: therapeutic strategies Reason for contiued inpatient stay Substantial Risk for: med/psych decompensation
[2021-09-14 20:01] VITALS: BP 117/69; PULSE 87; RESP 16; TEMP 35.9; O2SAT 97
[2021-09-14] MEDS: OLANZapine 10 MG TABLET 20 MG PO (20:07)
[2021-09-14] MEDS: traZODone HCL 50 MG TABLET PO (20:07)
[2021-09-14] MEDS: Mirtazapine 15 MG TABLET PO (20:07)
[2021-09-15 09:00] VITALS: BP 96/58; PULSE 95; RESP 16; TEMP 37; O2SAT 96
[2021-09-15] MEDS: Nicotine 21 MG PATCH.TD24 TRANSDERMA (09:04)
[2021-09-15] MEDS: Cyanocobalamin (Vitamin B-12) 1,000 MCG TABLET 1000 MCG PO (09:05)
[2021-09-15] MEDS: clonazePAM 1 MG TABLET PO ×2 (09:05→18:03)
[2021-09-15] MEDS: Sertraline HCL 100 MG TABLET PO (09:06)
[2021-09-15] MEDS: Folic Acid 1 MG TABLET PO (09:06)
[2021-09-15] MEDS: Multivitamin TABLET 1 TAB PO (09:06)
[2021-09-15] MEDS: buPROPion HCl XL 300 MG TAB.ER.24H PO (09:06)
--- NOTE | 2021-09-15 12:30 | P.PNPSI_ITS ---
Subjective Subjective Date of Service: 09/15/21 Reason For Visit: SI Subjective Notes: Conditional Voluntary Interim History: Patient seen and discussed with team. Patient reports he is doing fine. He denies SI/HI. He reports he slept well. He has been mostly in bed, but states trying to go to some groups. He was informed of d/c tomorrow. He denies any concerns with current medications. No behavioral concerns. Medication Compliance: Yes Review of Systems Review of Systems Constitutional : No Fever, No Chills ENT/Mouth : No Ear Pain, No Nasal Congestion, No sore throat Eyes: No Eye Pain, No Swelling, No Redness Cardiovascular : No Chest Pain, No SOB Respiratory : No Cough, No Sputum, No Dyspnea Gastrointestinal : No Nausea, No Vomiting, No Diarrhea, No Hematochezia, No Melena Genitourinary : No Dysuria, No Urinary Frequency, No Hematuria Musculoskeletal : No Myalgias Skin : No Skin Lesions, No rash Neuro : No Weakness, No Numbness, No Paresthesias, No Dizziness, No Headache Psych : positive Anxiety, positive Depression, positive SI no HI Heme/Lymph: No Lymphadenopathy Endocrine : No Polyuria, No Polydipsia All other systems reviewed and are negative Mental Status Exam Mental Status Exam Narrative: appropriately dressed and groomed.? general PMR.? cooperative with interview.? speech nml rate, nml amount, nml loudness, flattened tone, nml latency.? thoughts linear and logical.? affect constricted, consistent with context, hypo- intense, non-labile.? no SI/HI/AVH expressed. Diagnostics Vital Signs (24Hr): Vital Signs - 24 hr 09/14/21 20:01 Temperature 96.7 F L Pulse Rate 87 Respiratory Rate 16 Blood Pressure 117/69 Pulse Oximetry 97 BMI result Body Mass Index 31.1 Labs Results: 09/06/21 13:41 09/06/21 13:42 Medications Medications Current Medications Al Hydroxide/Mg Hydroxide (Magnesium Hydrox/Alum Hydrox 30 Ml Oral.Susp) 30 ml PO Q6H PRN PRN Reason: Heartburn/Nausea Bupropion HCl (Bupropion Hcl Xl 300 Mg Tab.Er.24h) 300 mg PO DAILY [facility] Last Admin: 09/15/21 09:06 Dose: 300 mg Documented by: Clonazepam (Clonazepam 1 Mg Tablet) 1 mg PO BID@0900,1700 [facility] Last Admin: 09/15/21 09:05 Dose: 1 mg Documented by: Cyanocobalamin (Cyanocobalamin (Vitamin B-12) 1,000 Mcg Tablet) 1,000 mcg PO DAILY [facility] Last Admin: 09/15/21 09:05 Dose: 1,000 mcg Documented by: Folic Acid (Folic Acid 1 Mg Tablet) 1 mg PO DAILY [facility] Last Admin: 09/15/21 09:06 Dose: 1 mg Documented by: Hydroxyzine HCl (Hydroxyzine Hcl 25 Mg Tablet) 25 mg PO BEDTIME PRN PRN Reason: Anxiety Ibuprofen (Ibuprofen 600 Mg Tablet) 600 mg PO Q8H PRN PRN Reason: Pain, Moderate (Pain Scale 4-6 Magnesium Hydroxide (Milk Of Magnesia 30 Ml Oral.Susp) 30 ml PO DAILY PRN PRN Reason: Constipation Mirtazapine (Mirtazapine 15 Mg Tablet) 15 mg PO BEDTIME [facility] Last Admin: 09/14/21 20:07 Dose: 15 mg Documented by: Multivitamins/Vitamin C (Multivitamin Tablet) 1 tab PO DAILY [facility] Last Admin: 09/15/21 09:06 Dose: 1 tab Documented by: Nicotine (Nicotine 21 Mg Patch.Td24) 21 mg TRANSDERMA DAILY [facility] Last Admin: 09/15/21 09:04 Dose: 21 mg Documented by: Nicotine Polacrilex (Nicotine Polacrilex 2 Mg Gum) 4 mg BUCCAL Q2H PRN PRN Reason: Nicotine Cravings Last Admin: 09/07/21 20:29 Dose: 4 mg Documented by: Olanzapine (Olanzapine 10 Mg Tablet) 20 mg PO BEDTIME [facility] Last Admin: 09/14/21 20:07 Dose: 20 mg Documented by: Sertraline HCl (Sertraline Hcl 100 Mg Tablet) 100 mg PO DAILY [facility] Last Admin: 09/15/21 09:06 Dose: 100 mg Documented by: Trazodone HCl (Trazodone Hcl 50 Mg Tablet) 50 mg PO BEDTIME PRN PRN Reason: Insomnia Last Admin: 09/14/21 20:07 Dose: 50 mg Documented by: Allergies Allergies Allergy/AdvReac Type Severity Reaction Status Date / Time No Known Allergies Allergy Verified 11/07/20 02:03 [No Known Allergies*] Assessment & Plan Assessment & Plan (1) Depression: Qualifiers: Depression Type: unspecified Qualified Code(s): F32.A - Depression, unspecified Status: Acute Code(s): F32.A - Depression, unspecified (2) Chronic post-traumatic stress disorder (PTSD): Status: Chronic Code(s): F43.12 - Post-traumatic stress disorder, chronic (3) Cocaine abuse: Status: Acute Code(s): F14.10 - Cocaine abuse, uncomplicated Plan restarted home medications. remeron increased from 7.5 mg QHS to 15 mg QHS as of 09/10. detoxed from cocaine. referred to [facility]; pt wants [place] [facility] only. discharge once stabilized. 09/15- continue current medications, d/c scheduled for 09/16- may have to go to family if [facility] not taking him. I spent minutes with the patient and/or on the patient floor today, greater than?50% of which was spent counseling/coordinating care. Reason for contiued inpatient stay Substantial Risk for: inability to function
[2021-09-15 20:24] VITALS: BP 112/71; PULSE 80; RESP 16; TEMP 36.6; O2SAT 96
[2021-09-15] MEDS: Mirtazapine 15 MG TABLET PO (20:28)
[2021-09-15] MEDS: traZODone HCL 50 MG TABLET PO (20:28)
[2021-09-15] MEDS: OLANZapine 10 MG TABLET 20 MG PO (20:28)
[2021-09-16] MEDS: buPROPion HCl XL 300 MG TAB.ER.24H PO (09:21)
[2021-09-16] MEDS: Cyanocobalamin (Vitamin B-12) 1,000 MCG TABLET 1000 MCG PO (09:22)
[2021-09-16] MEDS: Multivitamin TABLET 1 TAB PO (09:22)
[2021-09-16] MEDS: clonazePAM 1 MG TABLET PO (09:22)
[2021-09-16] MEDS: Folic Acid 1 MG TABLET PO (09:22)
[2021-09-16] MEDS: Nicotine 21 MG PATCH.TD24 TRANSDERMA (09:23)
[2021-09-16] MEDS: Sertraline HCL 100 MG TABLET PO (09:33)
[2021-09-16 09:37] VITALS: BP 119/69; PULSE 97; RESP 20; TEMP 36.4; O2SAT 96
--- NOTE | 2021-09-16 11:33 | PC.NURSE ---
Patient alert, oriented x3. Denies SI/HI, denies any concerns about discharge. Reviewed discharge instructions and appointments w/ patient who verbalized understanding. Bus passes were given as requested. Patient reports he feels safe to be discharged. Belongings reviewed w/ patient- no concerns verbalized.
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
== END 2021-09-16 13:10 | disposition home or self-care (01) | DRG 754 ==
LOC: HO.ED 09-07 10:14 → HO.PADLT16 09-07 13:17
PROVIDERS: Admitting Provider Psychiatry & Neurology Psychiatry; Emergency Provider Emergency Medicine; PCP Internal Medicine; Visit Provider Psychiatry & Neurology Psychiatry
DX: F32.A Depression, unspecified (principal); R45.851 Suicidal ideations; F11.20 Opioid dependence, uncomplicated; F17.210 Nicotine dependence, cigarettes, uncomplicated; F43.12 Post-traumatic stress disorder, chronic; F41.9 Anxiety disorder, unspecified; F14.10 Cocaine abuse, uncomplicated; Z20.822 Contact with and (suspected) exposure to COVID-19; Z71.6 Tobacco abuse counseling; Z59.02 Unsheltered homelessness; Z79.899 Other long term (current) drug therapy
CPT/HCPCS: 36415; 80048; 80061; 80076; 80307; 82077; 82607; 82746; 83036; 84439; 84443; 85025; 87635; 93005; 99285

== ENCOUNTER 2022-07-07 15:04 | Inpatient (IN) | payer OTHER, SELFPAY ==
[2022-07-07 15:10] VITALS: BP 110/56; BP 128/66; PULSE 80; PULSE 86; RESP 18; TEMP 36.7; O2SAT 98; BMI 36.9
--- NOTE | 2022-07-07 16:03 | ED.PSYCH ---
HPI - Psych General Chief Complaint: Psychiatric Symptoms Stated Complaint: SI(w/ plan) per EMS Time Seen by Provider: 07/07/22 16:01 Source: patient and EMS Mode of arrival: EMS Limitations: no limitations History of Present Illness HPI Narrative: 52-year-old male presents via EMS from [facility] for suicidal ideation. Patient uses crack cocaine and fentanyl on a daily basis, last use was 2 days ago. Patient states that he just can not handle life right now. MD complaint: suicidal ideation, feels depressed and substance abuse Duration: constant History of same: Yes Relieving factors: none Context: recent drug abuse Associated psychiatric symptoms: depression and suicidal ideation If self harm: admits thoughts of self harm Related Data Home Medications Medication Instructions Recorded Confirmed bupropion HCl 300 mg 24 hr tablet, 1 tab PO DAILY 07/07/22 07/07/22 extended release clonazepam 1 mg tablet 1 tab PO BID 07/07/22 07/07/22 mirtazapine 15 mg tablet 1 tab PO BEDTIME PRN Insomnia 07/07/22 07/07/22 olanzapine 20 mg tablet 1 tab PO BEDTIME 07/07/22 07/07/22 sertraline 100 mg tablet 1 tab PO QAM 07/07/22 07/07/22 Allergies Allergy/AdvReac Type Severity Reaction Status Date / Time No Known Allergies Allergy Verified 11/07/20 02:03 [No Known Allergies*] Review of Systems Review of Systems: Constitutional: No Fever, No Chills Cardiovascular: No Chest Pain, No SOB Respiratory: No Cough, No Sputum, No Dyspnea Gastrointestinal: No Nausea, No Vomiting, No Diarrhea Musculoskeletal: No Myalgias Skin: No Skin Lesions, No rash Neuro: No Weakness, No Numbness, No Paresthesias, No Dizziness, No Headache Psych: positive Anxiety, positive Depression, positive SI Yes all other systems are reviewed and are negative PMFSH Past Medical History Attestation statement: The following information was validated with the patient. Source: old records reviewed Medical History Anxiety Chronic post-traumatic stress disorder (PTSD) Depression Social History Social History Household Members: None Housing: Homeless Do you presently have visiting nurse or other home services: No Alcohol intake: current Alcohol intake frequency: a few times a month Patient Tobacco Use Status: Current everyday Tobacco user Tobacco use type: Cigarette Cigarette Packs Per Day: 0.5 Cigarettes Per Day: 30 Years Smoked: 20 Second Hand Smoke Exposure: No Substance Use Type: Crack/Cocaine and Caffiene Advance Directives: No Advance Directives Information Provided: No service: No Sexual orientation: Straight/Heterosexual Physical Exam Vital Signs: Vital Signs: Last Vital Signs Temp 98.0 F 07/07/22 22:20 Pulse 71 07/07/22 22:20 Resp 18 07/07/22 22:20 BP 121/76 07/07/22 22:20 Pulse Ox 96 07/07/22 22:20 O2 Del Method 07/07/22 22:20 BMI result Body Mass Index 36.9 Appearance: Alert. Oriented X3. Moderate emotional distress. Eyes: Pupils equal, round and reactive to light. ENT: Pharynx normal. Neck: Normal inspection. Neck supple. CVS: Normal heart rate and rhythm. Pulses normal. Respiratory: No respiratory distress. Breath sounds normal. Abdomen: Soft and nontender. Skin: Skin warm and dry. Normal skin color. Normal skin turgor. Extremities: Gait well-balanced well coordinated. Neuro: No motor deficit. No sensory deficit. Cranial nerves 2-12 intact. Course Course Course Narrative: 52-year-old male presents via EMS from [facility] for suicidal ideation and depression. Patient has a significant history of crack cocaine and fentanyl abuse, and has had prior admissions to Psychiatry. Patient is not forthcoming about his plan, is responding with short and one-word answers. Plan of care is for crisis consult, and labs. 22:49 patient is a Section 12, inpatient bed search by care team. Physician observation started at this time. Medications Administered Generic Name Dose Route Start Last Admin Trade Name Freq PRN Reason Stop Dose Admin Clonazepam 1 mg 07/07/22 21:45 07/07/22 22:01 Clonazepam 1 Mg Tablet PO 1 mg BID IRVING Administration Mirtazapine 15 mg 07/07/22 21:38 07/07/22 22:01 Mirtazapine 15 Mg Tablet PO 15 mg BEDTIME PRN Administration Insomnia Olanzapine 20 mg 07/07/22 21:45 07/07/22 22:01 Olanzapine 10 Mg Tablet PO 20 mg BEDTIME IRVING Administration Medical Decision Making Differential Diagnosis Differential Diagnoses: The differential diagnosis associated with the presentation includes Suicidal ideation, substance abuse Admission/Observation Consideration of admission/observation: Escalation of care including admission/observation considered M5 admission Consult Healthcare Provider Management of the patient was discussed with: Behavioral Health Provider Lab Data MDM Lab Attestation statement: I reviewed the patient's lab results. 07/07/22 18:54 07/07/22 18:54 Labs: Lab Results 07/07/22 07/07/22 07/07/22 Range/Units 16:46 18:54 18:54 WBC 8.7 (4.8-10.8) X10*3/uL RBC 5.11 (4.60-5.80) X10*6/uL Hgb 14.8 (14.0-18.0) g/dl Hct 43.9 (42.0-52.0) % MCV 85.9 (80.0-98.0) fL MCH 29.0 (27.0-33.0) pg MCHC 33.7 (31.0-36.0) g/dl RDW 15.2 (11.0-16.0) % Plt Count 295 (160-400) X10*3/uL MPV 9.2 L (9.4-12.4) fL Immature Gran % (Auto) 0.2 (0.0-0.4) % Neut % (Auto) 66.8 (45-73) % Lymph % (Auto) 25.3 (20-40) % Ashley % (Auto) 5.8 (2-11) % Eos % (Auto) 1.6 (0-4) % Baso % (Auto) 0.3 (0-2) % Lymph # (Auto) 2.2 (1.2-4.9) X10*3/uL Ashley # (Auto) 0.5 (0.1-1.2) X10*3/uL Eos # (Auto) 0.1 (0.0-0.4) X10*3/uL Baso # (Auto) 0.0 (0.0-0.2) X10*3/uL Abs Immat Gran (auto) 0.02 (0.00-0.03) X10*3/uL Absolute Neuts (auto) 5.8 (2.0-8.3) x10*3/uL Absolute Nucleated RBC 0.000 (0.0-0.012) X10*3/uL Nucleated RBC % (auto) 0.0 (0.0-0.2) /100WBC Sodium 140 (135-145) mmol/L Potassium 3.6 (3.3-5.1) mmol/L Chloride 103 (96-108) mmol/L Carbon Dioxide 27 (22-29) mmol/L Anion Gap 14 (12-20) BUN 16 (9-16) mg/dL Creatinine 1.25 (0.5-1.4) mg/dL Estim Creat Clear Calc 85.8 Estimated GFR > 60 Random Glucose 158 H (60-115) mg/dL Calcium 9.9 (8.4-10.2) mg/dL Total Bilirubin 0.5 (0.0-1.0) mg/dL AST 42 H (5-37) U/L ALT 34 (0-40) U/L Alkaline Phosphatase 59 (39-117) U/L Total Protein 7.7 (6.5-8.0) g/dL Albumin 4.5 (3.5-5.0) g/dL Urine Opiates Screen (Not Detect) Urine Fentanyl Screen (Not Detect) Ur Barbiturates Screen (Not Detect) Ur Phencyclidine Scrn (Not Detect) Ur Amphetamines Screen (Not Detect) U Benzodiazepines Scrn (Not Detect) Urine Cocaine Screen (Not Detect) U Marijuana (THC) Screen (Not Detect) Ethyl Alcohol mg/dL COVID-19 (KHUSHI) Negative (Negative) COVID-19 Clin Com See Note 07/07/22 07/07/22 Range/Units 18:54 18:56 WBC (4.8-10.8) X10*3/uL RBC (4.60-5.80) X10*6/uL Hgb (14.0-18.0) g/dl Hct (42.0-52.0) % MCV (80.0-98.0) fL MCH (27.0-33.0) pg MCHC (31.0-36.0) g/dl RDW (11.0-16.0) % Plt Count (160-400) X10*3/uL MPV (9.4-12.4) fL Immature Gran % (Auto) (0.0-0.4) % Neut % (Auto) (45-73) % Lymph % (Auto) (20-40) % Ashley % (Auto) (2-11) % Eos % (Auto) (0-4) % Baso % (Auto) (0-2) % Lymph # (Auto) (1.2-4.9) X10*3/uL Ashley # (Auto) (0.1-1.2) X10*3/uL Eos # (Auto) (0.0-0.4) X10*3/uL Baso # (Auto) (0.0-0.2) X10*3/uL Abs Immat Gran (auto) (0.00-0.03) X10*3/uL Absolute Neuts (auto) (2.0-8.3) x10*3/uL Absolute Nucleated RBC (0.0-0.012) X10*3/uL Nucleated RBC % (auto) (0.0-0.2) /100WBC Sodium (135-145) mmol/L Potassium (3.3-5.1) mmol/L Chloride (96-108) mmol/L Carbon Dioxide (22-29) mmol/L Anion Gap (12-20) BUN (9-16) mg/dL Creatinine (0.5-1.4) mg/dL Estim Creat Clear Calc Estimated GFR Random Glucose (60-115) mg/dL Calcium (8.4-10.2) mg/dL Total Bilirubin (0.0-1.0) mg/dL AST (5-37) U/L ALT (0-40) U/L Alkaline Phosphatase (39-117) U/L Total Protein (6.5-8.0) g/dL Albumin (3.5-5.0) g/dL Urine Opiates Screen Not Detected (Not Detect) Urine Fentanyl Screen POSITIVE H (Not Detect) Ur Barbiturates Screen Not Detected (Not Detect) Ur Phencyclidine Scrn Not Detected (Not Detect) Ur Amphetamines Screen Not Detected (Not Detect) U Benzodiazepines Scrn POSITIVE H (Not Detect) Urine Cocaine Screen POSITIVE H (Not Detect) U Marijuana (THC) Screen Not Detected (Not Detect) Ethyl Alcohol < 10 mg/dL COVID-19 (KHUSHI) (Negative) COVID-19 Clin Com External Record Review External record reviewed: Inpatient record, Outpatient record and Prior outpatient labs Discharge Plan Discharge Clinical Impression: Chronic post-traumatic stress disorder (PTSD), Cocaine abuse, Suicidal ideation Patient Disposition: Still a Patient Prescriptions: No Action sertraline 100 mg tablet 1 tab PO QAM clonazepam 1 mg tablet 1 tab PO BID mirtazapine 15 mg tablet 1 tab PO BEDTIME PRN (Reason: Insomnia) olanzapine 20 mg tablet 1 tab PO BEDTIME bupropion HCl 300 mg tablet extended release 24 hr 1 tab PO DAILY
[2022-07-07 17:11] LABS: COVID-19 Test Negative (Negative); IDNOW Serial# 16C4AD1C
[2022-07-07 19:01] LABS: MANUAL DIFF FLAG NO
[2022-07-07 19:02] LABS: Basophils Percent Auto 0.3 % (0-2); Eosinophils Absolute Auto 0.1 X10*3/uL (0.0-0.4); Eosinophils Percent Auto 1.6 % (0-4); Hematocrit 43.9 % (42.0-52.0); Hemoglobin 14.8 g/dl (14.0-18.0); Imm Gran Abs Auto 0.02 X10*3/uL (0.00-0.03); Imm Gran Pct Auto 0.2 % (0.0-0.4); Lymphocytes Absolute Auto 2.2 X10*3/uL (1.2-4.9); Lymphocytes Percent Auto 25.3 % (20-40); Mean Corpuscular HGB Conc 33.7 g/dl (31.0-36.0); Mean Corpuscular Volume 85.9 fL (80.0-98.0); Mean Platelet Volume 9.2 fL (9.4-12.4); Monocytes Absolute Auto 0.5 X10*3/uL (0.1-1.2); Monocytes Percent Auto 5.8 % (2-11); Neutrophils Absolute Auto 5.8 x10*3/uL (2.0-8.3); Neutrophils Percent Auto 66.8 % (45-73); Platelet Count 295 X10*3/uL (160-400); Red Blood Count 5.11 X10*6/uL (4.60-5.80); Red Cell Distribution Width 15.2 % (11.0-16.0); White Blood Count 8.7 X10*3/uL (4.8-10.8)
[2022-07-07 19:13] LABS: Amphetamine Screen Urine Not Detected (Not Detect); Barbiturates, Urine Not Detected (Not Detect); Benzodiazepines Screen Urine POSITIVE (Not Detect); Cannabinoid Screen Urine Not Detected (Not Detect); Cocaine Screen Urine POSITIVE (Not Detect); Fentanyl, urine POSITIVE (Not Detect); Opiate Screen Urine Not Detected (Not Detect); Phencyclidine Screen Urine Not Detected (Not Detect)
[2022-07-07 19:17] LABS: Alanine Aminotransferase 34 U/L (0-40); Albumin Level 4.5 g/dL (3.5-5.0); Alkaline Phosphatase 59 U/L (39-117); Anion Gap 14 (12-20); Aspartate Amino Transferase 42 U/L (5-37); Bilirubin Total 0.5 mg/dL (0.0-1.0); Blood Urea Nitrogen 16 mg/dL (9-16); Calcium 9.9 mg/dL (8.4-10.2); Carbon Dioxide 27 mmol/L (22-29); Chloride 103 mmol/L (96-108); Creatinine Clr Calc Pharmacy 85.8; Estimated Glomerular Filt Rate > 60; Glucose Random 158 mg/dL (60-115); Potassium 3.6 mmol/L (3.3-5.1); Sodium 140 mmol/L (135-145); Total Protein 7.7 g/dL (6.5-8.0)
--- NOTE | 2022-07-07 19:18 | PC.NURSE ---
Urine specimen and labs drawn and sent for analysis. Awaiting results. RN to RN report given to Jason. Was recently moved from main ED to [facility], escorted by Jonathan Stubbs RN.
[2022-07-07 19:39] LABS: Ethanol < 10 mg/dL
[2022-07-07] MEDS: Mirtazapine 15 MG TABLET PO (22:01)
[2022-07-07] MEDS: clonazePAM 1 MG TABLET PO (22:01)
[2022-07-07] MEDS: OLANZapine 10 MG TABLET 20 MG PO (22:01)
[2022-07-07 22:20] VITALS: BP 121/76; PULSE 71; RESP 18; TEMP 36.7; O2SAT 96
--- NOTE | 2022-07-08 | ECG_ITS ---
Test Reason : COCAINE POSITIVE Blood Pressure : / mmHG Vent. Rate : 083 BPM Atrial Rate : 083 BPM P-R Int : 160 ms QRS Dur : 084 ms QT Int : 382 ms P-R-T Axes : 061 067 046 degrees QTc Int : 448 ms Normal sinus rhythm Normal ECG When compared with ECG of 07-SEP-2021 10:17, No significant change was found Referred By: Mehul Mejia Electronically Signed By:ARIE LEVY
--- NOTE | 2022-07-08 05:24 | PC.NURSE ---
Patient slept through the night, no distress observed/reported, medication compliant, behavior non concerning, disposition per care team is section 12 inpatient bed search, VSS, will continue to monitor.
[2022-07-08 06:50] VITALS: BP 101/50; PULSE 65; RESP 17; TEMP 36.6; O2SAT 96
--- NOTE | 2022-07-08 07:01 | PC.NURSE ---
Patient sleeping no distress noted will CTM
[2022-07-08] MEDS: clonazePAM 1 MG TABLET PO ×2 (08:01→18:55)
[2022-07-08] MEDS: buPROPion HCl XL 300 MG TAB.ER.24H PO (08:01)
[2022-07-08] MEDS: Sertraline HCL 100 MG TABLET PO (08:02)
--- NOTE | 2022-07-08 08:09 | PC.NURSE ---
Patient easily aroused tolerated PO medications vague in answers to questions about suicidal ideation will CTM
--- NOTE | 2022-07-08 10:58 | PC.NURSE ---
Nurse to nurse given to m5 staff.
--- NOTE | 2022-07-08 13:47 | PC.ADMIT ---
pt is a 52 year old male who presented to [facility] after he was discharged from a detox clinic in [place]. pt reports SI and his plan is to overdose on heroin. pt has a subatnce abuse history of opiods, benzos, and cocaine. during admission, pt is flat and answered all questions. pt complained of pain in his right arm from injecting heroin into it. right arm has a palpable bump that feels hard. nurse will monitor. goal of treatment is to address symptoms of depression and find outpatient support. start treatment plan and promote safety.
[2022-07-08 18:00] VITALS: BP 104/58; PULSE 90; TEMP 36.3; O2SAT 95
[2022-07-08] MEDS: OLANZapine 10 MG TABLET 20 MG PO (18:55)
[2022-07-09 07:06] LABS: Alanine Aminotransferase 23 U/L (0-40); Albumin Level 3.9 g/dL (3.5-5.0); Alkaline Phosphatase 50 U/L (39-117); Anion Gap 13 (12-20); Aspartate Amino Transferase 21 U/L (5-37); Bilirubin Total 0.3 mg/dL (0.0-1.0); Blood Urea Nitrogen 17 mg/dL (9-16); Calcium 9.8 mg/dL (8.4-10.2); Carbon Dioxide 30 mmol/L (22-29); Chloride 104 mmol/L (96-108); Cholesterol 199 mg/dL; Creatinine Clr Calc Pharmacy 89.4; Estimated Glomerular Filt Rate > 60; Glucose Fasting 111 mg/dL (60-99); HDL Cholesterol 27 mg/dL; LDL Cholesterol Calculated 136 mg/dl; Potassium 4.5 mmol/L (3.3-5.1); Sodium 142 mmol/L (135-145); Total Protein 6.5 g/dL (6.5-8.0); Triglycerides 182 mg/dL
[2022-07-09] MEDS: Sertraline HCL 100 MG TABLET PO (08:38)
[2022-07-09] MEDS: clonazePAM 1 MG TABLET PO ×2 (08:38→14:28)
[2022-07-09] MEDS: buPROPion HCl XL 300 MG TAB.ER.24H PO (08:38)
[2022-07-09 08:45] VITALS: BP 111/64; PULSE 82; RESP 16; TEMP 36.3; O2SAT 99
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
[2022-07-09] MEDS: hydrOXYzine HCL 50 MG TABLET PO ×2 (14:14→20:09)
[2022-07-09 17:01] VITALS: BP 107/66; PULSE 70; RESP 20; TEMP 36.8; O2SAT 97
[2022-07-09] MEDS: Mirtazapine 15 MG TABLET PO (20:08)
[2022-07-09] MEDS: OLANZapine 10 MG TABLET 20 MG PO (20:08)
[2022-07-10 09:15] VITALS: BP 103/61; PULSE 73; RESP 18; TEMP 36.2; O2SAT 96
[2022-07-10] MEDS: buPROPion HCl XL 300 MG TAB.ER.24H PO (09:35)
[2022-07-10] MEDS: clonazePAM 1 MG TABLET PO ×2 (09:35→14:50)
[2022-07-10] MEDS: Sertraline HCL 100 MG TABLET PO (09:35)
--- NOTE | 2022-07-10 09:43 | P.PNPSI_ITS ---
Subjective Subjective Date of Service: 07/10/22 Reason For Visit: Suicidal ideation Interim History: Met with patient; discussed in team; reviewed notes written by covering provider; reviewed past admission/discharge summaries from prior admissions (saw the patient had been trialed on Adderall at a previous admission; also amitriptyline and Seroquel for sleep; also on methadone) Patient reports he remains depressed. He shared that he has always remained depressed it just that sometimes he gets worse. He cannot point to any reason that it worsened recently. Patient shared that at the program, he just could not stop feeling depressed so went out and used heroin and overdosed 2 times this past week; he says that neither times were actual suicide attempts but he also had the attitude that he did not really care 1 way or another what happened. Given patient's chronic ever present moderate depression which can worsen, right discussed the possibility ECT and patient was interested. Currently he agrees to titrate Zoloft back to 150 mg. He asked about Adderall which he said helped. He was never able to started as an outpatient. Patient continues to have passive suicidal thoughts but no intentions. Discussed methadone/Suboxone and patient does not want maintenance medication Mental Status Exam Mental Status Exam Narrative: Pt is alert and oriented; behavior is cooperative, calm; patient is not in distress; dressed in casual attire with adequate hygiene; mood is described as depressed and affect congruent,blunted, downcast; limited eye contact; Speech is slowed rate, lower volume; normal prosody and not pressured; psychomotor retardation present; thought process is organized and goal directed; Thought content is on hopelessness; tx; otherwise pertinent to relevant topics and without any delusional content, paranoid ideations or grandiosity; passive SI; no HI. There is no evidence of perceptual disturbance. Patients insight and judgment are impaired. Diagnostics Vital Signs (24Hr): Vital Signs - 24 hr 07/09/22 17:01 Temperature 98.3 F Pulse Rate 70 Respiratory Rate 20 Blood Pressure 107/66 Pulse Oximetry 97 Oxygen Delivery Method Room Air BMI result Body Mass Index 36.9 Labs 07/07/22 18:54 07/09/22 06:14 Labs: Laboratory Results - last 48 hr 07/09/22 06:14 Sodium 142 Potassium 4.5 D Chloride 104 Carbon Dioxide 30 H Anion Gap 13 BUN 17 H Creatinine 1.20 Estim Creat Clear Calc 89.4 Estimated GFR > 60 Fasting Glucose 111 H Calcium 9.8 Total Bilirubin 0.3 AST 21 ALT 23 Alkaline Phosphatase 50 Total Protein 6.5 Albumin 3.9 Triglycerides 182 Cholesterol 199 LDL Cholesterol, Calc 136 HDL Cholesterol 27 Medications Medications Current Medications Acetaminophen (Acetaminophen 325 Mg Tablet) 650 mg PO Q6H PRN PRN Reason: Headache/Pain Mild Scale (1-3) Al Hydroxide/Mg Hydroxide (Magnesium Hydrox/Alum Hydrox 30 Ml Oral.Susp) 30 ml PO Q6H PRN PRN Reason: Heartburn/Nausea Bupropion HCl (Bupropion Hcl Xl 300 Mg Tab.Er.24h) 300 mg PO DAILY [facility] Last Admin: 07/10/22 09:35 Dose: 300 mg Clonazepam (Clonazepam 1 Mg Tablet) 1 mg PO BID@0800,1500 [facility] Last Admin: 07/10/22 09:35 Dose: 1 mg Hydroxyzine HCl (Hydroxyzine Hcl 50 Mg Tablet) 50 mg PO Q6H PRN PRN Reason: Anxiety Last Admin: 07/09/22 20:09 Dose: 50 mg Magnesium Hydroxide (Milk Of Magnesia 30 Ml Oral.Susp) 30 ml PO DAILY PRN PRN Reason: Constipation Mirtazapine (Mirtazapine 15 Mg Tablet) 15 mg PO BEDTIME PRN PRN Reason: Insomnia Last Admin: 07/09/22 20:08 Dose: 15 mg Olanzapine (Olanzapine 10 Mg Tablet) 20 mg PO BEDTIME [facility] Last Admin: 07/09/22 20:08 Dose: 20 mg Sertraline HCl (Sertraline Hcl 100 Mg Tablet) 100 mg PO DAILY [facility] Last Admin: 07/10/22 09:35 Dose: 100 mg Trazodone HCl (Trazodone Hcl 50 Mg Tablet) 50 mg PO BEDTIME PRN PRN Reason: Insomnia Allergies Allergies Allergy/AdvReac Type Severity Reaction Status Date / Time No Known Allergies Allergy Verified 11/07/20 02:03 [No Known Allergies*] Assessment & Plan Assessment & Plan (1) Mood disorder: Status: Acute Code(s): F39 - Unspecified mood [affective] disorder (2) Chronic post-traumatic stress disorder (PTSD): Status: Chronic Code(s): F43.12 - Post-traumatic stress disorder, chronic (3) Opioid dependence on agonist therapy: Status: Chronic Code(s): F11.20 - Opioid dependence, uncomplicated (4) Cocaine abuse: Status: Acute Code(s): F14.10 - Cocaine abuse, uncomplicated Plan 52 year old male with MDD and PSA presents with SI with plan to OD on heroin in the context of continued substance use and recent OD requiring Narcan. He lost support of his sober living program and is now homeless. 07/10/2022 history of chronic refractory depression; PTSD as well Plan: Q 15 minute checks CV Increase Zoloft, titrate back to 150 mg Will consider ECT Will consider Adderall Continue Zyprexa 20 mg q.h.s. Continue mirtazapine 15 mg q.h.s. - Monitor symptoms - Continue current medications. - Collaterals. - Group and milieu therapy - Disposition planning. Medication trials: Zyprexa Zoloft Mirtazapine Seroquel Amitriptyline Doxepin Patient educated on: diagnosis, medication risk/benefits, substance abuse, ECT and therapeutic strategies Informed Consent: understands and further education needed Reason for contiued inpatient stay Substantial Risk for: harm to self and rapid decompensation Time Spent With Patient Time: Total time managing care of this patient today ____ minutes.
[2022-07-10] MEDS: Sertraline HCL 25 MG TABLET PO (14:49)
[2022-07-10] MEDS: Mirtazapine 15 MG TABLET PO (20:04)
[2022-07-10] MEDS: OLANZapine 10 MG TABLET 20 MG PO (20:04)
[2022-07-10] MEDS: hydrOXYzine HCL 50 MG TABLET PO (20:05)
[2022-07-10 20:10] VITALS: BP 115/71; PULSE 95; TEMP 35.8; O2SAT 97
[2022-07-11 09:12] VITALS: BP 114/64; PULSE 81; RESP 18; TEMP 36.9; O2SAT 96
[2022-07-11] MEDS: buPROPion HCl XL 300 MG TAB.ER.24H PO (09:13)
[2022-07-11] MEDS: Sertraline HCL 50 MG TABLET 150 MG PO (09:13)
[2022-07-11] MEDS: clonazePAM 1 MG TABLET PO ×2 (09:13→14:16)
--- NOTE | 2022-07-11 10:07 | P.PNPSI_ITS ---
Subjective Subjective Date of Service: 07/11/22 Reason For Visit: Suicidal ideation Interim History: Remains depressed; intermittent SI but no active SI. Patient reports that his mood is irritable; he is keeping mostly to himself. Patient Care Nursing Assistant again reviewed history and could not find any evidence of manic behaviors or episodes. Patient reiterates that depression has been present since childhood. Patient Care Nursing Assistant again discussed ECT and patient said he would like to do it since nothing else has se emed to help. Mental Status Exam Mental Status Exam Narrative: Pt is alert and oriented; behavior is cooperative, calm; patient is not in distress; dressed in casual attire with adequate hygiene; mood is described as irritable and affect congruent, depressed, blunted, downcast; limited eye contact; Speech is slowed rate, lower volume; normal prosody and not pressured; psychomotor retardation present; thought process is organized and goal directed; Thought content is on hopelessness; tx; otherwise pertinent to relevant topics and without any delusional content, paranoid ideations or grandiosity; passive SI; no HI. There is no evidence of perceptual disturbance. Patients insight and judgment are impaired. Diagnostics Vital Signs (24Hr): Vital Signs - 24 hr 07/10/22 20:10 07/11/22 09:12 Temperature 96.4 F L 98.4 F Pulse Rate 95 81 Respiratory Rate 18 Blood Pressure 115/71 114/64 Pulse Oximetry 97 96 Oxygen Delivery Method Room Air Room Air BMI result Body Mass Index 36.9 Labs 07/07/22 18:54 07/09/22 06:14 Medications Medications Current Medications Acetaminophen (Acetaminophen 325 Mg Tablet) 650 mg PO Q6H PRN PRN Reason: Headache/Pain Mild Scale (1-3) Al Hydroxide/Mg Hydroxide (Magnesium Hydrox/Alum Hydrox 30 Ml Oral.Susp) 30 ml PO Q6H PRN PRN Reason: Heartburn/Nausea Bupropion HCl (Bupropion Hcl Xl 300 Mg Tab.Er.24h) 300 mg PO DAILY [facility] Last Admin: 07/11/22 09:13 Dose: 300 mg Clonazepam (Clonazepam 1 Mg Tablet) 1 mg PO BID@0800,1500 [facility] Last Admin: 07/11/22 09:13 Dose: 1 mg Hydroxyzine HCl (Hydroxyzine Hcl 50 Mg Tablet) 50 mg PO Q6H PRN PRN Reason: Anxiety Last Admin: 07/10/22 20:05 Dose: 50 mg Magnesium Hydroxide (Milk Of Magnesia 30 Ml Oral.Susp) 30 ml PO DAILY PRN PRN Reason: Constipation Mirtazapine (Mirtazapine 15 Mg Tablet) 15 mg PO BEDTIME [facility] Last Admin: 07/10/22 20:04 Dose: 15 mg Olanzapine (Olanzapine 10 Mg Tablet) 20 mg PO BEDTIME [facility] Last Admin: 07/10/22 20:04 Dose: 20 mg Sertraline HCl (Sertraline Hcl 50 Mg Tablet) 150 mg PO DAILY [facility] Last Admin: 07/11/22 09:13 Dose: 150 mg Trazodone HCl (Trazodone Hcl 50 Mg Tablet) 50 mg PO BEDTIME PRN PRN Reason: Insomnia Allergies Allergies Allergy/AdvReac Type Severity Reaction Status Date / Time No Known Allergies Allergy Verified 11/07/20 02:03 [No Known Allergies*] Assessment & Plan Assessment & Plan (1) Mood disorder: Status: Acute Code(s): F39 - Unspecified mood [affective] disorder (2) Chronic post-traumatic stress disorder (PTSD): Status: Chronic Code(s): F43.12 - Post-traumatic stress disorder, chronic (3) Opioid dependence on agonist therapy: Status: Chronic Code(s): F11.20 - Opioid dependence, uncomplicated (4) Cocaine abuse: Status: Acute Code(s): F14.10 - Cocaine abuse, uncomplicated Plan 52 year old male with MDD and PSA presents with SI with plan to OD on heroin in the context of continued substance use and recent OD requiring Narcan. He lost support of his sober living program and is now homeless. 07/10/2022 history of chronic refractory depression; PTSD as well documentation writer agreed to start Adderall since patient said it helped last time. However documentation writer reiterated that this is unlikely to be continued at discharge which patient understands. Will continue titrating Zoloft and likely mirtazapine. Will get ECT consult Plan: Q 15 minute checks CV ECT consult Increase Zoloft, titrate back to 150 mg Will consider ECT Start Adderall ER 10 mg daily Continue Zyprexa 20 mg q.h.s. Continue mirtazapine 15 mg q.h.s. will likely titrate - Monitor symptoms - Continue current medications. - Collaterals. - Group and milieu therapy - Disposition planning. Medication trials: Zyprexa Zoloft Mirtazapine Seroquel Amitriptyline Doxepin Patient educated on: diagnosis, medication risk/benefits and ECT Informed Consent: understands Reason for contiued inpatient stay Substantial Risk for: rapid decompensation Time Spent With Patient Time: Total time managing care of this patient today ____ minutes.
[2022-07-11 17:02] VITALS: BP 111/71; PULSE 92; TEMP 36.2; O2SAT 96
[2022-07-11] MEDS: OLANZapine 10 MG TABLET 20 MG PO (19:51)
[2022-07-11] MEDS: Mirtazapine 15 MG TABLET PO (19:52)
[2022-07-11] MEDS: hydrOXYzine HCL 50 MG TABLET PO (19:56)
[2022-07-12 06:00] VITALS: BP 118/72; PULSE 94; RESP 18
[2022-07-12] MEDS: clonazePAM 1 MG TABLET PO ×2 (07:51→14:09)
[2022-07-12] MEDS: Sertraline HCL 50 MG TABLET 150 MG PO (07:51)
[2022-07-12] MEDS: buPROPion HCl XL 300 MG TAB.ER.24H PO (07:51)
[2022-07-12] MEDS: Dextroamphetamine/Amphetamine XR 10 MG CAP.ER.24H PO (07:51)
--- NOTE | 2022-07-12 11:48 | HO.PSYCHPN ---
Subjective Subjective Date of Service: 07/12/22 Reason For Visit: Suicidal ideation Interim History: With patient; discussed with teams; discussed case with Dr. Marino who also met with patient regarding possible ECT; after discussion both agree patient does not seem to need ECT Patient reports that he is feeling little better. Thinks maybe it is in fact because Zoloft was increased to 150 mg. He says he slept well last night and has been out of the room more. Denies any SI at all. He also agrees to increase mirtazapine. Discussed ECT further and patient agrees to continue with medication management instead. Mental Status Exam Mental Status Exam Narrative: Pt is alert and oriented; behavior is cooperative, calm; patient is not in distress; dressed in casual attire with adequate hygiene; mood is described as a little better and affect congruent, brighter and more naturally expressive; limited eye contact; Speech is normal rate, volume and prosody; not pressured; some psychomotor retardation present; thought process is organized and goal directed; Thought content is on feeing better; tx; otherwise pertinent to relevant topics and without any delusional content, paranoid ideations or grandiosity; no SI; no HI. There is no evidence of perceptual disturbance. Patients insight and judgment are impaired but improving. Diagnostics Vital Signs (24Hr): Vital Signs - 24 hr 07/11/22 17:02 07/12/22 06:00 Temperature 97.1 F Pulse Rate 92 94 Respiratory Rate 18 Blood Pressure 111/71 118/72 Pulse Oximetry 96 Oxygen Delivery Method Room Air Room Air BMI result Body Mass Index 36.9 Labs 07/07/22 18:54 07/09/22 06:14 Medications Medications Current Medications Acetaminophen (Acetaminophen 325 Mg Tablet) 650 mg PO Q6H PRN PRN Reason: Headache/Pain Mild Scale (1-3) Al Hydroxide/Mg Hydroxide (Magnesium Hydrox/Alum Hydrox 30 Ml Oral.Susp) 30 ml PO Q6H PRN PRN Reason: Heartburn/Nausea Amphetamine/Dextroamphetamine (Dextroamphetamine/Amphetamine Xr 10 Mg Cap.Er.24h) 10 mg PO DAILY [facility] Last Admin: 07/12/22 07:51 Dose: 10 mg Bupropion HCl (Bupropion Hcl Xl 300 Mg Tab.Er.24h) 300 mg PO DAILY [facility] Last Admin: 07/12/22 07:51 Dose: 300 mg Clonazepam (Clonazepam 1 Mg Tablet) 1 mg PO BID@0800,1500 [facility] Last Admin: 07/12/22 07:51 Dose: 1 mg Hydroxyzine HCl (Hydroxyzine Hcl 50 Mg Tablet) 50 mg PO Q6H PRN PRN Reason: Anxiety Last Admin: 07/11/22 19:56 Dose: 50 mg Magnesium Hydroxide (Milk Of Magnesia 30 Ml Oral.Susp) 30 ml PO DAILY PRN PRN Reason: Constipation Mirtazapine (Mirtazapine 15 Mg Tablet) 15 mg PO BEDTIME [facility] Last Admin: 07/11/22 19:52 Dose: 15 mg Olanzapine (Olanzapine 10 Mg Tablet) 20 mg PO BEDTIME [facility] Last Admin: 07/11/22 19:51 Dose: 20 mg Sertraline HCl (Sertraline Hcl 50 Mg Tablet) 150 mg PO DAILY [facility] Last Admin: 07/12/22 07:51 Dose: 150 mg Trazodone HCl (Trazodone Hcl 50 Mg Tablet) 50 mg PO BEDTIME PRN PRN Reason: Insomnia Allergies Allergies Allergy/AdvReac Type Severity Reaction Status Date / Time No Known Allergies Allergy Verified 11/07/20 02:03 [No Known Allergies*] Assessment & Plan Assessment & Plan (1) Mood disorder: Status: Acute Code(s): F39 - Unspecified mood [affective] disorder (2) Chronic post-traumatic stress disorder (PTSD): Status: Chronic Code(s): F43.12 - Post-traumatic stress disorder, chronic (3) Opioid dependence on agonist therapy: Status: Chronic Code(s): F11.20 - Opioid dependence, uncomplicated (4) Cocaine abuse: Status: Acute Code(s): F14.10 - Cocaine abuse, uncomplicated Plan 52 year old male with MDD and PSA presents with SI with plan to OD on heroin in the context of continued substance use and recent OD requiring Narcan. He lost support of his sober living program and is now homeless. 07/10/2022 history of chronic refractory depression; PTSD as well marketing writer agreed to start Adderall since patient said it helped last time. However marketing writer reiterated that this is unlikely to be continued at discharge which patient understands. Will continue titrating Zoloft and likely mirtazapine. Will get ECT consult 07/12 patient feeling a little better with medication management; marketing writer discussed case with consulting psychiatrist and then with patient who agrees to pursue medication management rather than ECT. No SI Plan: Q 15 minute checks CV Continue Zoloft 150 mg Continue Adderall ER 10 mg daily Continue Zyprexa 20 mg q.h.s. Increased to mirtazapine [address] Velazco on ECT who thinks that patient's depression will do best with medication management; marketing writer agrees. - Monitor symptoms - Continue current medications. - Collaterals. - Group and milieu therapy - Disposition planning. Medication trials: Zyprexa Zoloft Mirtazapine Seroquel Amitriptyline Doxepin Patient educated on: diagnosis, medication risk/benefits and ECT Informed Consent: understands Reason for contiued inpatient stay Substantial Risk for: rapid decompensation Time Spent With Patient Time: Total time managing care of this patient today ____ minutes.
[2022-07-12 18:00] VITALS: BP 130/71; PULSE 93; RESP 16; TEMP 36.8; O2SAT 97
[2022-07-12] MEDS: hydrOXYzine HCL 50 MG TABLET PO (20:35)
[2022-07-12] MEDS: OLANZapine 10 MG TABLET 20 MG PO (20:35)
[2022-07-12] MEDS: Mirtazapine 30 MG TABLET PO (20:35)
[2022-07-13 06:00] VITALS: BP 118/66; PULSE 97; RESP 14; TEMP 36.6; O2SAT 94
[2022-07-13 07:00] VITALS: BMI 33.0
[2022-07-13] MEDS: clonazePAM 1 MG TABLET PO ×2 (08:36→14:13)
[2022-07-13] MEDS: Dextroamphetamine/Amphetamine XR 10 MG CAP.ER.24H PO (08:36)
[2022-07-13] MEDS: Sertraline HCL 50 MG TABLET 150 MG PO (08:36)
[2022-07-13] MEDS: buPROPion HCl XL 300 MG TAB.ER.24H PO (08:36)
[2022-07-13 18:00] VITALS: BP 102/61; PULSE 85; TEMP 36.4; O2SAT 94
[2022-07-13] MEDS: OLANZapine 10 MG TABLET 20 MG PO (20:18)
[2022-07-13] MEDS: Mirtazapine 30 MG TABLET PO (20:18)
[2022-07-13] MEDS: hydrOXYzine HCL 50 MG TABLET PO (20:18)
--- NOTE | 2022-07-13 23:15 | P.PNPSI_ITS ---
Subjective Subjective Date of Service: 07/13/22 Reason For Visit: Suicidal ideation Interim History: Met with patient; discussed in team Patient reports that he is feeling pretty good and of note, affect is noticeably brighter. He says he got good sleep last night, woke up feeling refr eshed, out of his room, eating his breakfast. He agrees that most helpful medication is Zoloft at 150 mg, however he also thinks that increasing mirtazapine has helped with sleep. Balloon Design Printer discussed patient's recent history and he says that his recent overdoses were not suicidal at all. He said rather he just got bored, had a little too much freedom and had some money saved up, the combination being too triggering. Patient says that crack cocaine is his drug of choice and that he almost never uses heroin and that it has been years since he has done so. He says on both occasions he bought crack cocaine and on a whim bought some extra heroin just to help him come down; since it has been a long time since using heroin, he ended up overdosing. The 1st time was in a store but his sober living situation did not know about it. The 2nd time over was in the basement of his housing; patient reiterates the both times were accidental. Balloon Design Printer discussed his boredom and what things he might be interested in doing to help alleviate this. He is pretty ambivalent about a job, saying maybe if it was not too hard. Otherwise he cannot come up with many activities that could entertain him however he said he would think about it. Discussed aftercare and patient agrees he needs to apply to programs and a wider geographical area. Mental Status Exam Mental Status Exam Narrative: Pt is alert and oriented; behavior is cooperative, calm; patient is not in distress; dressed in casual attire with adequate hygiene; mood is described as pretty good and affect congruent, brighter, naturally expressive; good eye contact; Speech is normal rate, volume and prosody; not pressured; no p sychomotor retardation present; thought process is organized and goal directed; Thought content is on feeing better, aftercare; tx; otherwise pertinent to relevant topics and without any delusional content, paranoid ideations or grandiosity; no SI; no HI. There is no evidence of perceptual disturbance. Patients insight and judgment are fair and at baseline. Diagnostics Vital Signs (24Hr): Vital Signs - 24 hr 07/13/22 06:00 07/13/22 18:00 Temperature 97.8 F 97.6 F Pulse Rate 97 85 Respiratory Rate 14 Blood Pressure 118/66 102/61 Pulse Oximetry 94 94 Oxygen Delivery Method Room Air Room Air BMI result Body Mass Index 36.9 Labs 07/07/22 18:54 07/09/22 06:14 Medications Medications Current Medications Acetaminophen (Acetaminophen 325 Mg Tablet) 650 mg PO Q6H PRN PRN Reason: Headache/Pain Mild Scale (1-3) Al Hydroxide/Mg Hydroxide (Magnesium Hydrox/Alum Hydrox 30 Ml Oral.Susp) 30 ml PO Q6H PRN PRN Reason: Heartburn/Nausea Amphetamine/Dextroamphetamine (Dextroamphetamine/Amphetamine Xr 10 Mg Cap.Er.24h) 10 mg PO DAILY [facility] Last Admin: 07/13/22 08:36 Dose: 10 mg Bupropion HCl (Bupropion Hcl Xl 300 Mg Tab.Er.24h) 300 mg PO DAILY [facility] Last Admin: 07/13/22 08:36 Dose: 300 mg Clonazepam (Clonazepam 1 Mg Tablet) 1 mg PO BID@0800,1500 [facility] Last Admin: 07/13/22 14:13 Dose: 1 mg Hydroxyzine HCl (Hydroxyzine Hcl 50 Mg Tablet) 50 mg PO Q6H PRN PRN Reason: Anxiety Last Admin: 07/13/22 20:18 Dose: 50 mg Magnesium Hydroxide (Milk Of Magnesia 30 Ml Oral.Susp) 30 ml PO DAILY PRN PRN Reason: Constipation Mirtazapine (Mirtazapine 30 Mg Tablet) 30 mg PO BEDTIME [facility] Last Admin: 07/13/22 20:18 Dose: 30 mg Olanzapine (Olanzapine 10 Mg Tablet) 20 mg PO BEDTIME [facility] Last Admin: 07/13/22 20:18 Dose: 20 mg Sertraline HCl (Sertraline Hcl 50 Mg Tablet) 150 mg PO DAILY [facility] Last Admin: 07/13/22 08:36 Dose: 150 mg Trazodone HCl (Trazodone Hcl 50 Mg Tablet) 50 mg PO BEDTIME PRN PRN Reason: Insomnia Allergies Allergies Allergy/AdvReac Type Severity Reaction Status Date / Time No Known Allergies Allergy Verified 11/07/20 02:03 [No Known Allergies*] Assessment & Plan Assessment & Plan (1) Mood disorder: Status: Acute Code(s): F39 - Unspecified mood [affective] disorder (2) Chronic post-traumatic stress disorder (PTSD): Status: Chronic Code(s): F43.12 - Post-traumatic stress disorder, chronic (3) Opioid dependence on agonist therapy: Status: Chronic Code(s): F11.20 - Opioid dependence, uncomplicated (4) Cocaine abuse: Status: Acute Code(s): F14.10 - Cocaine abuse, uncomplicated Plan 52 year old male with MDD and PSA presents with SI with plan to OD on heroin in the context of continued substance use and recent OD requiring Narcan. He lost support of his sober living program and is now homeless. 07/10/2022 history of chronic refractory depression; PTSD as well instructional writer agreed to start Adderall since patient said it helped last time.? However instructional writer reiterated that this is unlikely to be continued at discharge which patient understands.? Will continue titrating Zoloft and likely mirtazapine.? Will get ECT consult 07/12 patient feeling a little better with medication management; instructional writer discussed case with consulting psychiatrist and then with patient who agrees to pursue medication management rather than ECT.? No SI 07/13 patient reports that his mood is better. Patient does endorse recent history of mild to moderate ongoing depression but explains that his recent ov erdose was not intentional and entirely accidental and that he was not suicidal at all but rather bored and used heroin for the 1st time in years. Patient tolerating medications well. Plan: Q 15 minute checks CV Continue Zoloft 150 mg Continue Adderall ER 10 mg daily Continue Zyprexa 20 mg q.h.s. Continue mirtazapine [address] Velazco on ECT who thinks that patient's depression will do best with medication management; instructional writer agrees. - Monitor symptoms - Continue current medications. - Collaterals. - Group and milieu therapy - Disposition planning. Medication trials: Zyprexa Zoloft Mirtazapine Seroquel Amitriptyline Doxepin Patient educated on: diagnosis, medication risk/benefits, substance abuse and therapeutic strategies Informed Consent: understands Reason for contiued inpatient stay Substantial Risk for: stable for discharge Time Spent With Patient Time: Total time managing care of this patient today ____ minutes.
[2022-07-14 06:00] VITALS: BP 130/70; PULSE 93; RESP 14; TEMP 35.9; O2SAT 96
[2022-07-14] MEDS: Sertraline HCL 50 MG TABLET 150 MG PO (08:31)
[2022-07-14] MEDS: clonazePAM 1 MG TABLET PO ×2 (08:32→14:19)
[2022-07-14] MEDS: Dextroamphetamine/Amphetamine XR 10 MG CAP.ER.24H PO (08:32)
[2022-07-14] MEDS: buPROPion HCl XL 300 MG TAB.ER.24H PO (08:32)
--- NOTE | 2022-07-14 09:50 | HO.PSYCHPN ---
Subjective Subjective Date of Service: 07/14/22 Reason For Visit: Suicidal ideation Interim History: met with patient; discussed w/ team Met with patient while sitting in the day room, Patient is smiling, having just finished a game with peers.? Says he is doing good and medications are working.? Does not want any changes.? Remains without any SI Mental Status Exam Mental Status Exam Narrative: Pt is alert and oriented; behavior is cooperative, calm; patient is not in distress; dressed in casual attire with adequate hygiene; mood is described as good and affect congruent, bright, naturally expressive; good eye contact; Speech is normal rate, volume and prosody; not pressured; no psychomotor retardation present; thought process is organized and goal directed; Thought content is on feeing better, aftercare; tx; otherwise pertinent to relevant topics and without any delusional content, paranoid ideations or grandiosity; no SI; no HI. There is no evidence of perceptual disturbance. Patients insight and judgment are fair and at baseline. Diagnostics Vital Signs (24Hr): Vital Signs - 24 hr 07/13/22 18:00 Temperature 97.6 F Pulse Rate 85 Blood Pressure 102/61 Pulse Oximetry 94 Oxygen Delivery Method Room Air BMI result Body Mass Index 36.9 Labs 07/07/22 18:54 07/09/22 06:14 Medications Medications Current Medications Acetaminophen (Acetaminophen 325 Mg Tablet) 650 mg PO Q6H PRN PRN Reason: Headache/Pain Mild Scale (1-3) Al Hydroxide/Mg Hydroxide (Magnesium Hydrox/Alum Hydrox 30 Ml Oral.Susp) 30 ml PO Q6H PRN PRN Reason: Heartburn/Nausea Amphetamine/Dextroamphetamine (Dextroamphetamine/Amphetamine Xr 10 Mg Cap.Er.24h) 10 mg PO DAILY [facility] Last Admin: 07/14/22 08:32 Dose: 10 mg Bupropion HCl (Bupropion Hcl Xl 300 Mg Tab.Er.24h) 300 mg PO DAILY [facility] Last Admin: 07/14/22 08:32 Dose: 300 mg Clonazepam (Clonazepam 1 Mg Tablet) 1 mg PO BID@0800,1500 [facility] Last Admin: 07/14/22 08:32 Dose: 1 mg Hydroxyzine HCl (Hydroxyzine Hcl 50 Mg Tablet) 50 mg PO Q6H PRN PRN Reason: Anxiety Last Admin: 07/13/22 20:18 Dose: 50 mg Magnesium Hydroxide (Milk Of Magnesia 30 Ml Oral.Susp) 30 ml PO DAILY PRN PRN Reason: Constipation Mirtazapine (Mirtazapine 30 Mg Tablet) 30 mg PO BEDTIME [facility] Last Admin: 07/13/22 20:18 Dose: 30 mg Olanzapine (Olanzapine 10 Mg Tablet) 20 mg PO BEDTIME [facility] Last Admin: 07/13/22 20:18 Dose: 20 mg Sertraline HCl (Sertraline Hcl 50 Mg Tablet) 150 mg PO DAILY [facility] Last Admin: 07/14/22 08:31 Dose: 150 mg Trazodone HCl (Trazodone Hcl 50 Mg Tablet) 50 mg PO BEDTIME PRN PRN Reason: Insomnia Allergies Allergies Allergy/AdvReac Type Severity Reaction Status Date / Time No Known Allergies Allergy Verified 11/07/20 02:03 [No Known Allergies*] Assessment & Plan Assessment & Plan (1) Mood disorder: Status: Acute Code(s): F39 - Unspecified mood [affective] disorder (2) Chronic post-traumatic stress disorder (PTSD): Status: Chronic Code(s): F43.12 - Post-traumatic stress disorder, chronic (3) Opioid dependence on agonist therapy: Status: Chronic Code(s): F11.20 - Opioid dependence, uncomplicated (4) Cocaine abuse: Status: Acute Code(s): F14.10 - Cocaine abuse, uncomplicated Plan 52 year old male with MDD and PSA presents with SI with plan to OD on heroin in the context of continued substance use and recent OD requiring Narcan. He lost support of his sober living program and is now homeless. 07/10/2022 history of chronic refractory depression; PTSD as well speech writer agreed to start Adderall since patient said it helped last time.? However speech writer reiterated that this is unlikely to be continued at discharge which patient understands.? Will continue titrating Zoloft and likely mirtazapine.? Will get ECT consult 07/12 patient feeling a little better with medication management; speech writer discussed case with consulting psychiatrist and then with patient who agrees to pursue medication management rather than ECT.? No SI 07/13 patient reports that his mood is better. Patient does endorse recent history of mild to moderate ongoing depression but explains that his recent overdose was not intentional and entirely accidental and that he was not suicidal at all but rather bored and used heroin for the 1st time in years. Patient tolerating medications well. 2/3 Patient remains with improved mood, no SI and at baseline. No changes to treatment plan Plan: Q 15 minute checks CV Continue Zoloft 150 mg Continue Adderall ER 10 mg daily (unlikely to continue on discharge; rather will let outpt provider and patient discuss) Continue Zyprexa 20 mg q.h.s. Continue mirtazapine [address] q[address]s. Consulted Dr. Velazco on ECT who thinks that patient's depression will do best with medication management; speech writer agrees. - Monitor symptoms - Continue current medications. - Collaterals. - Group and milieu therapy - Disposition planning. Medication trials: Zyprexa Zoloft Mirtazapine Seroquel Amitriptyline Doxepin Patient educated on: diagnosis Informed Consent: understands Reason for contiued inpatient stay Substantial Risk for: stable for discharge Time Spent With Patient Time: Total time managing care of this patient today ____ minutes.
[2022-07-14 19:55] VITALS: BP 109/63; PULSE 85; TEMP 36.1
[2022-07-14] MEDS: OLANZapine 10 MG TABLET 20 MG PO (19:55)
[2022-07-14] MEDS: Mirtazapine 30 MG TABLET PO (19:56)
[2022-07-14] MEDS: hydrOXYzine HCL 50 MG TABLET PO (20:00)
[2022-07-15 06:00] VITALS: BP 108/52; PULSE 95; RESP 14; TEMP 36.4; O2SAT 97
[2022-07-15] MEDS: buPROPion HCl XL 300 MG TAB.ER.24H PO (08:42)
[2022-07-15] MEDS: clonazePAM 1 MG TABLET PO ×2 (08:42→14:02)
[2022-07-15] MEDS: Dextroamphetamine/Amphetamine XR 10 MG CAP.ER.24H PO (08:42)
[2022-07-15] MEDS: Sertraline HCL 50 MG TABLET 150 MG PO (08:42)
--- NOTE | 2022-07-15 16:57 | P.PNPSI_ITS ---
Subjective Subjective Date of Service: 07/15/22 Reason For Visit: Suicidal ideation Interim History: Met with patient. Chart reviewed. Discussed with Nursing. Overall reports no significant issues in that mood is slightly improving regarding depression. Reports that he is trying to get outside of his room more which is evident. Trying to socialize. Had meal for/ lunch as side of room. Hopeful he can transition to substance programming at [facility] and then potentially somewhere like [facility] Medication Compliance: Yes Side effects from medications: No Attending Groups: Intermittent Review of Systems Acute medical concerns: No Review of Systems Review of Systems Yes all other systems are reviewed and are negative Mental Status Exam Mental Status Exam Narrative: pleasant. Engaged. Organized. Fairly presented. Reports feeling less depressed. Affect restricted. No SI. No HI. No agitation. No psychosis. Insight and judgment okay Diagnostics Vital Signs (24Hr): Vital Signs - 24 hr 07/14/22 19:55 07/15/22 06:00 Temperature 96.9 F 97.6 F Pulse Rate 85 95 Respiratory Rate 14 Blood Pressure 109/63 108/52 L Pulse Oximetry 97 Oxygen Delivery Method Room Air BMI result Body Mass Index 33.0 Labs 07/07/22 18:54 07/09/22 06:14 Medications Medications Current Medications Acetaminophen (Acetaminophen 325 Mg Tablet) 650 mg PO Q6H PRN PRN Reason: Headache/Pain Mild Scale (1-3) Al Hydroxide/Mg Hydroxide (Magnesium Hydrox/Alum Hydrox 30 Ml Oral.Susp) 30 ml PO Q6H PRN PRN Reason: Heartburn/Nausea Amphetamine/Dextroamphetamine (Dextroamphetamine/Amphetamine Xr 10 Mg Cap.Er.24h) 10 mg PO DAILY [facility] Last Admin: 07/15/22 08:42 Dose: 10 mg Bupropion HCl (Bupropion Hcl Xl 300 Mg Tab.Er.24h) 300 mg PO DAILY [facility] Last Admin: 07/15/22 08:42 Dose: 300 mg Clonazepam (Clonazepam 1 Mg Tablet) 1 mg PO BID@0800,1500 [facility] Last Admin: 07/15/22 14:02 Dose: 1 mg Hydroxyzine HCl (Hydroxyzine Hcl 50 Mg Tablet) 50 mg PO Q6H PRN PRN Reason: Anxiety Last Admin: 07/14/22 20:00 Dose: 50 mg Magnesium Hydroxide (Milk Of Magnesia 30 Ml Oral.Susp) 30 ml PO DAILY PRN PRN Reason: Constipation Mirtazapine (Mirtazapine 30 Mg Tablet) 30 mg PO BEDTIME [facility] Last Admin: 07/14/22 19:56 Dose: 30 mg Olanzapine (Olanzapine 10 Mg Tablet) 20 mg PO BEDTIME [facility] Last Admin: 07/14/22 19:55 Dose: 20 mg Sertraline HCl (Sertraline Hcl 50 Mg Tablet) 150 mg PO DAILY [facility] Last Admin: 07/15/22 08:42 Dose: 150 mg Trazodone HCl (Trazodone Hcl 50 Mg Tablet) 50 mg PO BEDTIME PRN PRN Reason: Insomnia Allergies Allergies Allergy/AdvReac Type Severity Reaction Status Date / Time No Known Allergies Allergy Verified 11/07/20 02:03 [No Known Allergies*] Assessment & Plan Assessment & Plan (1) Mood disorder: Status: Acute Code(s): F39 - Unspecified mood [affective] disorder (2) Chronic post-traumatic stress disorder (PTSD): Status: Chronic Code(s): F43.12 - Post-traumatic stress disorder, chronic (3) Opioid dependence on agonist therapy: Status: Chronic Code(s): F11.20 - Opioid dependence, uncomplicated (4) Cocaine abuse: Status: Acute Code(s): F14.10 - Cocaine abuse, uncomplicated Plan 52 year old male with MDD and PSA presents with SI with plan to OD on heroin in the context of continued substance use and recent OD requiring Narcan. He lost support of his sober living program and is now homeless. 07/10/2022 history of chronic refractory depression; PTSD as well pattern chart writer agreed to start Adderall since patient said it helped last time.? However pattern chart writer reiterated that this is unlikely to be continued at discharge which patient understands.? Will continue titrating Zoloft and likely mirtazapine.? Will get ECT consult 07/12 patient feeling a little better with medication management; pattern chart writer discussed case with consulting psychiatrist and then with patient who agrees to pursue medication management rather than ECT.? No SI 07/13 patient reports that his mood is better. Patient does endorse recent history of mild to moderate ongoing depression but explains that his recent overdose was not intentional and entirely accidental and that he was not suicidal at all but rather bored and used heroin for the 1st time in years. Patient tolerating medications well. 07/14 Patient remains with improved mood, no SI and at baseline. No changes to treatment plan 07/15/2022: No changes to current treatment plan Plan: Q 15 minute checks CV Continue Zoloft 150 mg Continue Adderall ER 10 mg daily (unlikely to continue on discharge; rather will let outpt provider and patient discuss) Continue Zyprexa 20 mg q.h.s. Continue mirtazapine [address]s. Consulted Dr. Velazco on ECT who thinks that patient's depression will do best with medication management; pattern chart writer agrees. - Monitor symptoms - Continue current medications. - Collaterals. - Group and milieu therapy - Disposition planning. Medication trials: Zyprexa Zoloft Mirtazapine Seroquel Amitriptyline Doxepin Reason for contiued inpatient stay Substantial Risk for: inability to function Time Spent With Patient Time: Total time managing care of this patient today ____ minutes.
[2022-07-15 18:00] VITALS: BP 111/66; PULSE 86; RESP 14; TEMP 36.4
[2022-07-15] MEDS: Mirtazapine 30 MG TABLET PO (19:57)
[2022-07-15] MEDS: OLANZapine 10 MG TABLET 20 MG PO (19:57)
[2022-07-15] MEDS: hydrOXYzine HCL 50 MG TABLET PO (19:58)
[2022-07-16 06:00] VITALS: BP 106/59; PULSE 84; RESP 14; TEMP 36.6; O2SAT 93
[2022-07-16] MEDS: buPROPion HCl XL 300 MG TAB.ER.24H PO (08:35)
[2022-07-16] MEDS: clonazePAM 1 MG TABLET PO ×2 (08:35→14:01)
[2022-07-16] MEDS: Sertraline HCL 50 MG TABLET 150 MG PO (08:35)
[2022-07-16] MEDS: Dextroamphetamine/Amphetamine XR 10 MG CAP.ER.24H PO (08:35)
--- NOTE | 2022-07-16 13:03 | P.PNPSI_ITS ---
Subjective Subjective Date of Service: 07/16/22 Reason For Visit: Suicidal ideation Interim History: Overall reports things are progressing in a good direction with less depression. No medication concerns. No SI. Sleep and energy okay. Is getting out of room more and socializing more. Remains hopeful for further stabilization from a substance programming perspective. Medication Compliance: Yes Side effects from medications: No Attending Groups: Intermittent Review of Systems Acute medical concerns: No Review of Systems Review of Systems Yes all other systems are reviewed and are negative Mental Status Exam Mental Status Exam Narrative: pleasant. Engaged. Organized. Fairly presented. Reports feeling less depressed. Affect restricted. No SI. No HI. No agitation. No psychosis. Insight and judgment okay Diagnostics Vital Signs (24Hr): Vital Signs - 24 hr 07/15/22 18:00 07/16/22 06:00 Temperature 97.5 F 97.8 F Pulse Rate 86 84 Respiratory Rate 14 14 Blood Pressure 111/66 106/59 L Pulse Oximetry 93 Oxygen Delivery Method Room Air BMI result Body Mass Index 33.0 Labs 07/07/22 18:54 07/09/22 06:14 Medications Medications Current Medications Acetaminophen (Acetaminophen 325 Mg Tablet) 650 mg PO Q6H PRN PRN Reason: Headache/Pain Mild Scale (1-3) Al Hydroxide/Mg Hydroxide (Magnesium Hydrox/Alum Hydrox 30 Ml Oral.Susp) 30 ml PO Q6H PRN PRN Reason: Heartburn/Nausea Amphetamine/Dextroamphetamine (Dextroamphetamine/Amphetamine Xr 10 Mg Cap.Er.24h) 10 mg PO DAILY [facility] Last Admin: 07/16/22 08:35 Dose: 10 mg Bupropion HCl (Bupropion Hcl Xl 300 Mg Tab.Er.24h) 300 mg PO DAILY [facility] Last Admin: 07/16/22 08:35 Dose: 300 mg Clonazepam (Clonazepam 1 Mg Tablet) 1 mg PO BID@0800,1500 [facility] Last Admin: 07/16/22 08:35 Dose: 1 mg Hydroxyzine HCl (Hydroxyzine Hcl 50 Mg Tablet) 50 mg PO Q6H PRN PRN Reason: Anxiety Last Admin: 07/15/22 19:58 Dose: 50 mg Magnesium Hydroxide (Milk Of Magnesia 30 Ml Oral.Susp) 30 ml PO DAILY PRN PRN Reason: Constipation Mirtazapine (Mirtazapine 30 Mg Tablet) 30 mg PO BEDTIME [facility] Last Admin: 07/15/22 19:57 Dose: 30 mg Olanzapine (Olanzapine 10 Mg Tablet) 20 mg PO BEDTIME [facility] Last Admin: 07/15/22 19:57 Dose: 20 mg Sertraline HCl (Sertraline Hcl 50 Mg Tablet) 150 mg PO DAILY [facility] Last Admin: 07/16/22 08:35 Dose: 150 mg Trazodone HCl (Trazodone Hcl 50 Mg Tablet) 50 mg PO BEDTIME PRN PRN Reason: Insomnia Allergies Allergies Allergy/AdvReac Type Severity Reaction Status Date / Time No Known Allergies Allergy Verified 11/07/20 02:03 [No Known Allergies*] Assessment & Plan Assessment & Plan (1) Mood disorder: Status: Acute Code(s): F39 - Unspecified mood [affective] disorder (2) Chronic post-traumatic stress disorder (PTSD): Status: Chronic Code(s): F43.12 - Post-traumatic stress disorder, chronic (3) Opioid dependence on agonist therapy: Status: Chronic Code(s): F11.20 - Opioid dependence, uncomplicated (4) Cocaine abuse: Status: Acute Code(s): F14.10 - Cocaine abuse, uncomplicated Plan 52 year old male with MDD and PSA presents with SI with plan to OD on heroin in the context of continued substance use and recent OD requiring Narcan. He lost support of his sober living program and is now homeless. 07/10/2022 history of chronic refractory depression; PTSD as well gag writer agreed to start Adderall since patient said it helped last time.? However gag writer reiterated that this is unlikely to be continued at discharge which patient understands.? Will continue titrating Zoloft and likely mirtazapine.? Will get ECT consult 07/12 patient feeling a little better with medication management; gag writer discussed case with consulting psychiatrist and then with patient who agrees to pursue medication management rather than ECT.? No SI 07/13 patient reports that his mood is better. Patient does endorse recent history of mild to moderate ongoing depression but explains that his recent overdose was not intentional and entirely accidental and that he was not suicidal at all but rather bored and used heroin for the 1st time in years. Patient tolerating medications well. 07/14 Patient remains with improved mood, no SI and at baseline. No changes to treatment plan 07/16/2022: No changes to current treatment plan Plan: Q 15 minute checks CV Continue Zoloft 150 mg Continue Adderall ER 10 mg daily (unlikely to continue on discharge; rather will let outpt provider and patient discuss) Continue Zyprexa 20 mg q.h.s. Continue mirtazapine 30 [address] q[address]s. Consulted Dr. Velazco on ECT who thinks that patient's depression will do best with medication management; gag writer agrees. - Monitor symptoms - Continue current medications. - Collaterals. - Group and milieu therapy - Disposition planning. Medication trials: Zyprexa Zoloft Mirtazapine Seroquel Amitriptyline Doxepin Reason for contiued inpatient stay Substantial Risk for: harm to self Time Spent With Patient Time: Total time managing care of this patient today ____ minutes.
[2022-07-16 17:07] VITALS: BP 99/61; PULSE 88; RESP 14; TEMP 36.4; O2SAT 97
[2022-07-16] MEDS: Mirtazapine 30 MG TABLET PO (19:59)
[2022-07-16] MEDS: OLANZapine 10 MG TABLET 20 MG PO (19:59)
[2022-07-16] MEDS: hydrOXYzine HCL 50 MG TABLET PO (19:59)
[2022-07-17 06:00] VITALS: BP 110/67; PULSE 96; RESP 14; TEMP 36.3; O2SAT 95
[2022-07-17] MEDS: Dextroamphetamine/Amphetamine XR 10 MG CAP.ER.24H PO (08:25)
[2022-07-17] MEDS: Sertraline HCL 50 MG TABLET 150 MG PO (08:25)
[2022-07-17] MEDS: buPROPion HCl XL 300 MG TAB.ER.24H PO (08:25)
[2022-07-17] MEDS: clonazePAM 1 MG TABLET PO ×2 (08:25→14:03)
[2022-07-17] MEDS: OLANZapine 10 MG TABLET 20 MG PO (20:10)
[2022-07-17] MEDS: hydrOXYzine HCL 50 MG TABLET PO (20:10)
[2022-07-17] MEDS: Mirtazapine 30 MG TABLET PO (20:10)
--- NOTE | 2022-07-17 22:55 | P.PNPSI_ITS ---
Subjective Subjective Date of Service: 07/17/22 Reason For Visit: Suicidal ideation Interim History: met w/ patient; discussed in teams 'pt says he's good; denies depression or psych symptoms; no complaints, no requests, just hoping for admission to program Mental Status Exam Mental Status Exam Narrative: Pt is alert and oriented; behavior is cooperative, calm; patient is not in distress; dressed in casual attire with adequate hygiene; mood is described as good and affect congruent, bright, naturally expressive; good eye contact; Speech is normal rate, volume and prosody; not pressured; no psychomotor retardation present; thought process is organized and goal directed; Thought content is on feeing better, aftercare; tx; otherwise pertinent to relevant topics and without any delusional content, paranoid ideations or grandiosity; no SI; no HI. There is no evidence of perceptual disturbance. Patients insight and judgment are fair and at baseline. Diagnostics Vital Signs (24Hr): Vital Signs - 24 hr 07/17/22 06:00 Temperature 97.3 F Pulse Rate 96 Respiratory Rate 14 Blood Pressure 110/67 Pulse Oximetry 95 Oxygen Delivery Method Room Air BMI result Body Mass Index 33.0 Labs 07/07/22 18:54 07/09/22 06:14 Medications Medications Current Medications Acetaminophen (Acetaminophen 325 Mg Tablet) 650 mg PO Q6H PRN PRN Reason: Headache/Pain Mild Scale (1-3) Al Hydroxide/Mg Hydroxide (Magnesium Hydrox/Alum Hydrox 30 Ml Oral.Susp) 30 ml PO Q6H PRN PRN Reason: Heartburn/Nausea Amphetamine/Dextroamphetamine (Dextroamphetamine/Amphetamine Xr 10 Mg Cap.Er.24h) 10 mg PO DAILY [facility] Last Admin: 07/17/22 08:25 Dose: 10 mg Bupropion HCl (Bupropion Hcl Xl 300 Mg Tab.Er.24h) 300 mg PO DAILY [facility] Last Admin: 07/17/22 08:25 Dose: 300 mg Clonazepam (Clonazepam 1 Mg Tablet) 1 mg PO BID@0800,1500 [facility] Last Admin: 07/17/22 14:03 Dose: 1 mg Hydroxyzine HCl (Hydroxyzine Hcl 50 Mg Tablet) 50 mg PO Q6H PRN PRN Reason: Anxiety Last Admin: 07/17/22 20:10 Dose: 50 mg Magnesium Hydroxide (Milk Of Magnesia 30 Ml Oral.Susp) 30 ml PO DAILY PRN PRN Reason: Constipation Mirtazapine (Mirtazapine 30 Mg Tablet) 30 mg PO BEDTIME [facility] Last Admin: 07/17/22 20:10 Dose: 30 mg Olanzapine (Olanzapine 10 Mg Tablet) 20 mg PO BEDTIME [facility] Last Admin: 07/17/22 20:10 Dose: 20 mg Sertraline HCl (Sertraline Hcl 50 Mg Tablet) 150 mg PO DAILY [facility] Last Admin: 07/17/22 08:25 Dose: 150 mg Trazodone HCl (Trazodone Hcl 50 Mg Tablet) 50 mg PO BEDTIME PRN PRN Reason: Insomnia Allergies Allergies Allergy/AdvReac Type Severity Reaction Status Date / Time No Known Allergies Allergy Verified 11/07/20 02:03 [No Known Allergies*] Assessment & Plan Assessment & Plan (1) Mood disorder: Status: Acute Code(s): F39 - Unspecified mood [affective] disorder (2) Chronic post-traumatic stress disorder (PTSD): Status: Chronic Code(s): F43.12 - Post-traumatic stress disorder, chronic (3) Opioid dependence on agonist therapy: Status: Chronic Code(s): F11.20 - Opioid dependence, uncomplicated (4) Cocaine abuse: Status: Acute Code(s): F14.10 - Cocaine abuse, uncomplicated Plan 52 year old male with MDD and PSA presents with SI with plan to OD on heroin in the context of continued substance use and recent OD requiring Narcan. He lost support of his sober living program and is now homeless. 07/10/2022 history of chronic refractory depression; PTSD as well typewriters functional tester agreed to start Adderall since patient said it helped last time.? However typewriters functional tester reiterated that this is unlikely to be continued at discharge which patient understands.? Will continue titrating Zoloft and likely mirtazapine.? Will get ECT consult 07/12 patient feeling a little better with medication management; typewriters functional tester discussed case with consulting psychiatrist and then with patient who agrees to pursue medication management rather than ECT.? No SI 07/13 patient reports that his mood is better. Patient does endorse recent history of mild to moderate ongoing depression but explains that his recent overdose was not intentional and entirely accidental and that he was not suicidal at all but rather bored and used heroin for the 1st time in years. Patient tolerating medications well. 2/3 Patient remains with improved mood, no SI and at baseline. No changes to treatment plan 07/16/2022: No changes to current treatment plan Plan: Q 15 minute checks CV Continue Zoloft 150 mg Continue Adderall ER 10 mg daily (unlikely to continue on discharge; rather will let outpt provider and patient discuss) Continue Zyprexa 20 mg q.h.s. Continue mirtazapine 30 mg q.h[address]s. Consulted Dr. Velazco on ECT who thinks that patient's depression will do best with medication management; typewriters functional tester agrees. - Monitor symptoms - Continue current medications. - Collaterals. - Group and milieu therapy - Disposition planning. Medication trials: Zyprexa Zoloft Mirtazapine Seroquel Amitriptyline Doxepin Patient educated on: diagnosis Informed Consent: understands Reason for contiued inpatient stay Substantial Risk for: stable for discharge Time Spent With Patient Time: Total time managing care of this patient today ____ minutes.
[2022-07-18 06:00] VITALS: BP 105/61; PULSE 102; RESP 18; O2SAT 97
[2022-07-18] MEDS: Sertraline HCL 50 MG TABLET 150 MG PO (08:24)
[2022-07-18] MEDS: buPROPion HCl XL 300 MG TAB.ER.24H PO (08:24)
[2022-07-18] MEDS: clonazePAM 1 MG TABLET PO ×2 (08:24→14:06)
[2022-07-18] MEDS: Dextroamphetamine/Amphetamine XR 10 MG CAP.ER.24H PO (08:25)
--- NOTE | 2022-07-18 10:11 | P.PNPSI_ITS ---
Subjective Subjective Date of Service: 07/18/22 Reason For Visit: Suicidal ideation Interim History: met w/ patient; discussed with team; w/ SW Patient reports he is doing well. Says he is now able to go to his aunt's house and stay there. He said if he gets into a [facility] he will probably go their 1st but otherwise plans to go to his aunt's house. Remains stable, good mood, no SI, no AVH, sleeping and eating well. Mental Status Exam Mental Status Exam Narrative: Pt is alert and oriented; behavior is cooperative, calm; patient is not in distress; dressed in casual attire with adequate hygiene; mood is described as good and affect congruent, bright, naturally expressive; good eye contact; Speech is normal rate, volume and prosody; not pressured; no psychomotor babak rdation present; thought process is organized and goal directed; Thought content is on feeing better, aftercare; tx; otherwise pertinent to relevant topics and without any delusional content, paranoid ideations or grandiosity; no SI; no HI. There is no evidence of perceptual disturbance. Patients insight and judgment are fair and at baseline. Diagnostics Vital Signs (24Hr): BMI result Body Mass Index 33.0 Labs 07/07/22 18:54 07/09/22 06:14 Medications Medications Current Medications Acetaminophen (Acetaminophen 325 Mg Tablet) 650 mg PO Q6H PRN PRN Reason: Headache/Pain Mild Scale (1-3) Al Hydroxide/Mg Hydroxide (Magnesium Hydrox/Alum Hydrox 30 Ml Oral.Susp) 30 ml PO Q6H PRN PRN Reason: Heartburn/Nausea Amphetamine/Dextroamphetamine (Dextroamphetamine/Amphetamine Xr 10 Mg Cap.Er.24h) 10 mg PO DAILY [facility] Last Admin: 07/18/22 08:25 Dose: 10 mg Bupropion HCl (Bupropion Hcl Xl 300 Mg Tab.Er.24h) 300 mg PO DAILY [facility] Last Admin: 07/18/22 08:24 Dose: 300 mg Clonazepam (Clonazepam 1 Mg Tablet) 1 mg PO BID@0800,1500 [facility] Last Admin: 07/18/22 08:24 Dose: 1 mg Hydroxyzine HCl (Hydroxyzine Hcl 50 Mg Tablet) 50 mg PO Q6H PRN PRN Reason: Anxiety Last Admin: 07/17/22 20:10 Dose: 50 mg Magnesium Hydroxide (Milk Of Magnesia 30 Ml Oral.Susp) 30 ml PO DAILY PRN PRN Reason: Constipation Mirtazapine (Mirtazapine 30 Mg Tablet) 30 mg PO BEDTIME [facility] Last Admin: 07/17/22 20:10 Dose: 30 mg Olanzapine (Olanzapine 10 Mg Tablet) 20 mg PO BEDTIME [facility] Last Admin: 07/17/22 20:10 Dose: 20 mg Sertraline HCl (Sertraline Hcl 50 Mg Tablet) 150 mg PO DAILY [facility] Last Admin: 07/18/22 08:24 Dose: 150 mg Trazodone HCl (Trazodone Hcl 50 Mg Tablet) 50 mg PO BEDTIME PRN PRN Reason: Insomnia Allergies Allergies Allergy/AdvReac Type Severity Reaction Status Date / Time No Known Allergies Allergy Verified 11/07/20 02:03 [No Known Allergies*] Assessment & Plan Assessment & Plan (1) Mood disorder: Status: Acute Code(s): F39 - Unspecified mood [affective] disorder (2) Chronic post-traumatic stress disorder (PTSD): Status: Chronic Code(s): F43.12 - Post-traumatic stress disorder, chronic (3) Opioid dependence on agonist therapy: Status: Chronic Code(s): F11.20 - Opioid dependence, uncomplicated (4) Cocaine abuse: Status: Acute Code(s): F14.10 - Cocaine abuse, uncomplicated Plan 52 year old male with MDD and PSA presents with SI with plan to OD on heroin in the context of continued substance use and recent OD requiring Narcan. He lost support of his sober living program and is now homeless. 07/10/2022 history of chronic refractory depression; PTSD as well food writer agreed to start Adderall since patient said it helped last time.? Hugo davalos food writer reiterated that this is unlikely to be continued at discharge which patient understands.? Will continue titrating Zoloft and likely mirtazapine.? Will get ECT consult 07/12 patient feeling a little better with medication management; food writer discussed case with consulting psychiatrist and then with patient who agrees to pursue medication management rather than ECT.? No SI 07/13 patient reports that his mood is better. Patient does endorse recent history of mild to moderate ongoing depression but explains that his recent overdose was not intentional and entirely accidental and that he was not suicidal at all but rather bored and used heroin for the 1st time in years. Patient tolerating medications well. 07/14 Patient remains with improved mood, no SI and at baseline. No changes to treatment plan 07/16/2022: No changes to current treatment plan 07/17 patient remains in good mood, depression resolved, no SI; plans to go to his aunt's if does not get into a [facility] Plan: Q 15 minute checks CV Continue Zoloft 150 mg Continue Adderall ER 10 mg daily (unlikely to continue on discharge; rather will let outpt provider and patient discuss) Continue Zyprexa 20 mg q.h.s. Continue mirtazapine 30 mg q[address]s. Consulted Dr. Velazco on ECT who thinks that patient's depression will do best with medication management; food writer agrees. - Monitor symptoms - Continue current medications. - Collaterals. - Group and milieu therapy - Disposition planning. Medication trials: Zyprexa Zoloft Mirtazapine Seroquel Amitriptyline Doxepin Patient educated on: diagnosis and therapeutic strategies Informed Consent: understands Reason for contiued inpatient stay Substantial Risk for: stable for discharge Time Spent With Patient Time: Total time managing care of this patient today ____ minutes.
[2022-07-18 17:14] VITALS: BP 115/69; PULSE 84; TEMP 36.2; O2SAT 94
[2022-07-18] MEDS: OLANZapine 10 MG TABLET 20 MG PO (20:13)
[2022-07-18] MEDS: hydrOXYzine HCL 50 MG TABLET PO (20:13)
[2022-07-18] MEDS: Mirtazapine 30 MG TABLET PO (20:13)
[2022-07-19 06:00] VITALS: BP 114/55; PULSE 114; RESP 16
[2022-07-19] MEDS: Dextroamphetamine/Amphetamine XR 10 MG CAP.ER.24H PO (08:11)
[2022-07-19] MEDS: buPROPion HCl XL 300 MG TAB.ER.24H PO (08:11)
[2022-07-19] MEDS: Sertraline HCL 50 MG TABLET 150 MG PO (08:12)
--- NOTE | 2022-07-19 10:21 | P.PNPSI_ITS ---
Subjective Subjective Date of Service: 07/19/22 Reason For Visit: Suicidal ideation Interim History: Met With patient; discussed in teams Patient reports he is doing well, no complaints, looking forward to discharging tomorrow saying he will go to his aunt's house. Mental Status Exam Mental Status Exam Narrative: Pt is alert and oriented; behavior is cooperative, calm; patient is not in distress; dressed in casual attire with adequate hygiene; mood is described as good and affect congruent, bright, naturally expressive; good eye contact; Speech is normal rate, volume and prosody; not pressured; no psychomotor retardation present; thought process is organized and goal directed; Thought content is on feeing better, aftercare; tx; otherwise pertinent to relevant topi cs and without any delusional content, paranoid ideations or grandiosity; no SI; no HI. There is no evidence of perceptual disturbance. Patients insight and judgment are fair and at baseline. Diagnostics Vital Signs (24Hr): Vital Signs - 24 hr 07/18/22 17:14 07/19/22 06:00 Temperature 97.2 F Pulse Rate 84 114 H Respiratory Rate 16 Blood Pressure 115/69 114/55 L Pulse Oximetry 94 Oxygen Delivery Method Room Air Room Air BMI result Body Mass Index 33.0 Labs 07/07/22 18:54 07/09/22 06:14 Medications Medications Current Medications Acetaminophen (Acetaminophen 325 Mg Tablet) 650 mg PO Q6H PRN PRN Reason: Headache/Pain Mild Scale (1-3) Al Hydroxide/Mg Hydroxide (Magnesium Hydrox/Alum Hydrox 30 Ml Oral.Susp) 30 ml PO Q6H PRN PRN Reason: Heartburn/Nausea Amphetamine/Dextroamphetamine (Dextroamphetamine/Amphetamine Xr 10 Mg Cap.Er.24h) 10 mg PO DAILY IRVING Last Admin: 07/19/22 08:11 Dose: 10 mg Bupropion HCl (Bupropion Hcl Xl 300 Mg Tab.Er.24h) 300 mg PO DAILY IRVING Last Admin: 07/19/22 08:11 Dose: 300 mg Hydroxyzine HCl (Hydroxyzine Hcl 50 Mg Tablet) 50 mg PO Q6H PRN PRN Reason: Anxiety Last Admin: 07/18/22 20:13 Dose: 50 mg Magnesium Hydroxide (Milk Of Magnesia 30 Ml Oral.Susp) 30 ml PO DAILY PRN PRN Reason: Constipation Mirtazapine (Mirtazapine 30 Mg Tablet) 30 mg PO BEDTIME [facility] Last Admin: 07/18/22 20:13 Dose: 30 mg Olanzapine (Olanzapine 10 Mg Tablet) 20 mg PO BEDTIME [facility] Last Admin: 07/18/22 20:13 Dose: 20 mg Sertraline HCl (Sertraline Hcl 50 Mg Tablet) 150 mg PO DAILY [facility] Last Admin: 07/19/22 08:12 Dose: 150 mg Trazodone HCl (Trazodone Hcl 50 Mg Tablet) 50 mg PO BEDTIME PRN PRN Reason: Insomnia Allergies Allergies Allergy/AdvReac Type Severity Reaction Status Date / Time No Known Allergies Allergy Verified 11/07/20 02:03 [No Known Allergies*] Assessment & Plan Assessment & Plan (1) Mood disorder: Status: Acute Code(s): F39 - Unspecified mood [affective] disorder (2) Chronic post-traumatic stress disorder (PTSD): Status: Chronic Code(s): F43.12 - Post-traumatic stress disorder, chronic (3) Opioid dependence on agonist therapy: Status: Chronic Code(s): F11.20 - Opioid dependence, uncomplicated (4) Cocaine abuse: Status: Acute Code(s): F14.10 - Cocaine abuse, uncomplicated Plan 52 year old male with MDD and PSA presents with SI with plan to OD on heroin in the context of continued substance use and recent OD requiring Narcan. He lost support of his sober living program and is now homeless. 07/10/2022 history of chronic refractory depression; PTSD as well medical writer agreed to start Adderall since patient said it helped last time.? However medical writer reiterated that this is unlikely to be continued at discharge which patient understands.? Will continue titrating Zoloft and likely mirtazapine.? Will get ECT consult 07/12 patient feeling a little better with medication management; medical writer discussed case with consulting psychiatrist and then with patient who agrees to pursue medication management rather than ECT.? No SI 07/13 patient reports that his mood is better. Patient does endorse recent history of mild to moderate ongoing depression but explains that his recent overdose was not intentional and entirely accidental and that he was not suicidal at all but rather bored and used heroin for the 1st time in years. Patient tolerating medications well. 07/14 Patient remains with improved mood, no SI and at baseline. No changes to treatment plan 07/16/2022: No changes to current treatment plan 07/17 patient remains in good mood, depression resolved, no SI; plans to go to his aunt's if does not get into a CSS 07/19 patient remains in good mood, no SI going to his on sounds. While patient remains at risk for relapse or mood dysregulation, this is a chronic issue which will not resolve with further stay on inpatient unit. Patient symptoms have significantly improved. He is not in imminent risk for harm to self or others and his request for discharge honored. Plan: Q 15 minute checks CV Continue Zoloft 150 mg Continue Adderall ER 10 mg daily (unlikely to continue on discharge; rather will let outpt provider and patient discuss) Continue Zyprexa 20 mg q.h.s. Continue mirtazapine [address] Velazco on ECT who thinks that patient's depression will do best with medication management; medical writer agrees. - Monitor symptoms - Continue current medications. - Collaterals. - Group and milieu therapy - Disposition planning. Medication trials: Zyprexa Zoloft Mirtazapine Seroquel Amitriptyline Doxepin Patient educated on: diagnosis Reason for contiued inpatient stay Substantial Risk for: stable for discharge Time Spent With Patient Time: Total time managing care of this patient today ____ minutes.
[2022-07-19] MEDS: clonazePAM 1 MG TABLET PO (14:48)
[2022-07-19 17:05] VITALS: BP 122/74; PULSE 74; TEMP 36.3; O2SAT 97
[2022-07-19] MEDS: Mirtazapine 30 MG TABLET PO (19:56)
[2022-07-19] MEDS: OLANZapine 10 MG TABLET 20 MG PO (19:56)
[2022-07-19] MEDS: hydrOXYzine HCL 50 MG TABLET PO (19:56)
[2022-07-20 08:32] VITALS: BP 98/66; PULSE 101; RESP 16; TEMP 36.3; O2SAT 96
[2022-07-20] MEDS: buPROPion HCl XL 300 MG TAB.ER.24H PO (08:43)
[2022-07-20] MEDS: Sertraline HCL 50 MG TABLET 150 MG PO (08:43)
[2022-07-20] MEDS: clonazePAM 1 MG TABLET PO (08:44)
[2022-07-20] MEDS: Dextroamphetamine/Amphetamine XR 10 MG CAP.ER.24H PO (08:44)
--- NOTE | 2022-07-20 09:16 | P.DS_ITS ---
DS: Providers Provider Date of Service: 07/20/22 Date of admission: 07/08/22 10:51 Date of discharge: 07/20/22 Primary care physician: None Physician Attending physician on admission: Deng Echeverria Attending physician on discharge: Deng Echeverria DS: Diagnosis Discharge Diagnosis (1) Mood disorder: Status: Acute (2) Chronic post-traumatic stress disorder (PTSD): Status: Chronic (3) Opioid dependence on agonist therapy: Status: Chronic (4) Cocaine abuse: Status: Acute DS: Medications Discharge Medications Home Medications: Previous Rx's Medication Instructions Recorded bupropion HCl 300 mg 24 hr tablet, 300 mg PO DAILY 30 days #30 tabs 07/20/22 extended release clonazepam 1 mg tablet 1 mg PO BID 14 days #28 tabs 07/20/22 hydroxyzine HCl 50 mg tablet 50 mg PO Q6H PRN Anxiety 30 days 07/20/22 #30 tabs mirtazapine 15 mg tablet 15 mg PO BEDTIME PRN Insomnia 30 07/20/22 days #30 tabs olanzapine 20 mg tablet 20 mg PO BEDTIME 30 days #30 tabs 07/20/22 sertraline 100 mg tablet 150 mg PO DAILY 30 days #45 tabs 07/20/22 Mental Status Exam Mental Status Exam Narrative: Pt is alert and oriented; behavior is cooperative, calm; patient is not in distress; dressed in casual attire with adequate hygiene; mood is described as good and affect congruent, bright, naturally expressive; good eye contact; Speech is normal rate, volume and prosody; not pressured; no psychomotor retardation present; thought process is organized and goal directed; Thought content is on feeing better, aftercare; otherwise pertinent to relevant topics and without any delusional content, paranoid ideations or grandiosity; no SI; no HI. There is no evidence of perceptual disturbance. Patients insight and judgment are fair and at baseline. DS: Summary Hospital Course Hospital Course: 52 year old male with chronic MDD, cocaine, heroin abuse who presents with SI with plan to OD on heroin in the context of continued substance use and recent OD requiring Narcan. He lost support of his sober living program and is now homeless. Hospital course: On admission, patient was depressed but denied SI. In fact he reports that neither overdose was intentional but accidental; he explained he was bored and depressed so when out to buy some cocaine and unusually for him also bought some heroin which he has not used in years resulting in overdose. Patient was restarted on home medications and Zoloft titrated to former home dose of 150 mg and mirtazapine was increased to 30 mg. Patient's depression lingered and due to chronicity of it, creative writer considered ECT and got a consult; however consulting provider did not think that ECT was warranted at this time and patient's depression did in fact resolved with medication management. Patient was also started on Adderall which he said was very helpful last time he was here and makes a difference in his mood. Ear Specialist discussed this medication with patient further; he understood that creative writer was not going to continue it once discharged since creative writer thought it best that patient discuss it further with his outpatient provider and establish a relationship/rapport. Patient remained in good mood, without any SI, bright affect and stable on medication regimen; he was sleeping and eating well. He did not attend many groups however was appropriate with peers and staff and remained in good behavioral and impulse control throughout his stay. He Was ambivalent about aftercare, considering a CSS program but learned he could go and stay at his aunt's which he preferred to do. Patient felt ready for discharge.? While he remains at risk for relapse or mood dysregulation, this is a chronic issue which will not resolve with further stay on inpatient unit. Patient symptoms have significantly improved and he is appropriate to continue care in the community with his established outpatient providers. Patient is also going to live at his aunts.? He is not in imminent risk for harm to self or others and his request for discharge honored. Past Medication trials: Zyprexa Zoloft Mirtazapine Seroquel Amitriptyline Doxepin Time spent discussing smoking cessation with patient: 3 to 10 minutes Status at Discharge Functional status at discharge: independent ambulation Overall status at discharge: patient is back to baseline Time Spent with Patient Time attestation: Total time managing care of this patient today ____ minutes. Time spent: Less than 30 minutes Discharge Plan Discharge Anticipated Discharge Date/Time: 07/20/22 13:00 Patient Disposition: Home, Self-Care Discharge Diagnosis: MDD, recurrent, moderate in full remissoin Referrals: [facility] Individual Kriss, Shanna Samuel [Other] - 07/20/22 4:00 pm (Telehealth Provided in Patient's Home) [facility] Individual Therapy, Shanna Samuel [Other] - 07/24/22 11:15 am (Telehealth Provided in Patient's Home) [facility] Medication Management, Miri Kohli [Other] - 08/01/22 10:00 am (Telehealth Provided in Patient's Home) Discharge Medications: New sertraline 100 mg tablet 150 mg PO DAILY 30 Days Qty: 45 0RF hydroxyzine HCl 50 mg Tablet 50 mg PO Q6H PRN (Reason: Anxiety) 30 Days Qty: 30 0RF mirtazapine 30 mg Tablet 30 mg PO BEDTIME 30 Days Qty: 30 0RF Changed olanzapine 20 mg tablet 20 mg PO BEDTIME 30 Days Qty: 30 0RF bupropion HCl 300 mg tablet extended release 24 hr 300 mg PO DAILY 30 Days Qty: 30 0RF clonazepam 1 mg tablet 1 mg PO BID 14 Days Qty: 28 1RF Discontinued sertraline 100 mg tablet 1 tab PO QAM mirtazapine 15 mg tablet 1 tab PO BEDTIME PRN (Reason: Insomnia) Discharge Orders: Discharge Order (Routine); Ordered 07/20/22 Ordered By: Deng Echeverria Diet: Regular diet Activity on Discharge: As tolerated Stand Alone Forms: Patient Portal Discharge page Care Plan Goals: Maintain mood and safe behaviors Take medications as prescribed Continue to pursue sobriety Practice coping skills Continue with outpatient providers and reach out to them as needed Health Concerns: Mood stability and behaviors Sobriety Plan of Treatment: Follow up with your Psychiatric provider and other outpatient providers regarding above concerns Take medications as prescribed Discuss with outpatient psychiatric provider [facility] (which was trailed on unit to good effect) Assessment: Risk assessment at time of discharge:? Patient was interviewed prior to discharge and found to be fully oriented and without any SI or HI. Patient has insight and demonstrates good judgment in terms of wanting to pursue treatment. Patient is not in imminent risk of harm to self or others and has a safety plan that includes presenting to the closest ER or calling 911 if feeling unsafe.? Patient has been observed closely by nursing and unit staff throughout admission; patient has not engaged in any behaviors that suggest dangerousness to self or others and has demonstrated appropriate behaviors and impulse control
== END 2022-07-20 11:00 | disposition home or self-care (01) | DRG 751 ==
LOC: HO.ED 22:50 → HO.PM5 07-08 10:56
PROVIDERS: Nurse Practitioner Family; Admitting Provider Psychiatry & Neurology Psychiatry; Emergency Provider Student in an Organized Health Care Education/Training Program; Visit Provider Psychiatry & Neurology Psychiatry
DX: F33.1 Major depressive disorder, recurrent, moderate (principal); R45.851 Suicidal ideations; F17.210 Nicotine dependence, cigarettes, uncomplicated; F14.10 Cocaine abuse, uncomplicated; F43.12 Post-traumatic stress disorder, chronic; Z62.810 Personal history of physical and sexual abuse in childhood; Z56.0 Unemployment, unspecified; Z20.822 Contact with and (suspected) exposure to COVID-19; Z71.6 Tobacco abuse counseling; Z79.899 Other long term (current) drug therapy
CPT/HCPCS: 36415; 80053; 80061; 80307; 82077; 85025; 87635; 93005; 99285; S9485

== ENCOUNTER 2022-07-21 15:39 | Emergency (ER) | payer OTHER, SELFPAY ==
[2022-07-21 15:44] VITALS: BP 107/72; PULSE 114
[2022-07-21 16:02] VITALS: BP 109/69; PULSE 116; RESP 10; TEMP 36.8; O2SAT 88; BMI 34.0
[2022-07-21 16:04] VITALS: O2SAT 95
--- NOTE | 2022-07-21 16:09 | ED.GENADULT ---
HPI - General Adult General Chief complaint: ETOH/Substance Use Stated complaint: overdose Time Seen by Provider: 07/21/22 15:47 Source: patient Mode of arrival: EMS Limitations: no limitations History of Present Illness HPI narrative: patient is a 52-year-old male who presents emergency department via EMS. Patient had accidental overdose on fentanyl. He states that he snorted 1 bag of sentinel today, he is not certain who called EMS, Narcan 8 mg intranasal administration from EMS. He states that he is not using daily. He is not certain what made him want to use today. The last time he used was approximately couple of weeks ago and he states that he overdosed at that time as well. At this time he currently declines any interest in detox. He denies EtOH or additional drug usage. He denies any suicidal or some homicidal ideations. At this time he is calm and cooperative, but is upset because EMS cut her clothing off from him. He has otherwise been feeling well lately, no physical complaints. Currently denies chest pain, shortness of breath, difficulty breathing, nausea, vomiting, abdominal pain. Related Data Previous Rx's Medication Instructions Recorded bupropion HCl 300 mg 24 hr tablet, 300 mg PO DAILY 30 days #30 tabs 07/20/22 extended release clonazepam 1 mg tablet 1 mg PO BID 14 days #28 tabs 07/20/22 hydroxyzine HCl 50 mg tablet 50 mg PO Q6H PRN Anxiety 30 days 07/20/22 #30 tabs mirtazapine 30 mg tablet 30 mg PO BEDTIME 30 days #30 tabs 07/20/22 olanzapine 20 mg tablet 20 mg PO BEDTIME 30 days #30 tabs 07/20/22 sertraline 100 mg tablet 150 mg PO DAILY 30 days #45 tabs 07/20/22 Allergies Allergy/AdvReac Type Severity Reaction Status Date / Time No Known Allergies Allergy Verified 11/07/20 02:03 [No Known Allergies*] Review of Systems Review of Systems: Constitutional : No Fever, No Chills ENT/Mouth : No Ear Pain, No Nasal Congestion, No sore throat Eyes: No Eye Pain, No Swelling, No Redness Cardiovascular : No Chest Pain, No SOB Respiratory : No Cough, No Sputum, No Dyspnea Gastrointestinal : No Nausea, No Vomiting, No Diarrhea, No Hematochezia, No Melena Genitourinary : No Dysuria, No Urinary Frequency, No Hematuria Musculoskeletal : No Myalgias Skin : No Skin Lesions, No rash Neuro : No Weakness, No Numbness, No Paresthesias, No Dizziness, No Headache Psych : positive Anxiety, positive Depression, No SI/HI Heme/Lymph: No Lymphadenopathy Endocrine : No Polyuria, No Polydipsia Yes all other systems are reviewed and are negative [facility] Past Medical History Attestation statement: The following information was validated with the patient. Source: old records reviewed Medical History Anxiety Chronic post-traumatic stress disorder (PTSD) Depression Social History Social History Household Members: None Housing: Homeless Do you presently have visiting nurse or other home services: No Alcohol intake: current Alcohol intake frequency: a few times a month Patient Tobacco Use Status: Current everyday Tobacco user Tobacco use type: Cigarette Cigarette Packs Per Day: 0.5 Cigarettes Per Day: 10.0 Years Smoked: 20 e-Cigarette/Vaping Use: Never Used Second Hand Smoke Exposure: No Substance Use Type: Crack/Cocaine, Opiates and Prescription Drugs Advance Directives: No Advance Directives Information Provided: No service: No Sexual orientation: Straight/Heterosexual Physical Exam ED Vital Signs: Vital Signs - 24 hr 07/21/22 16:02 07/21/22 16:04 07/21/22 18:00 Temperature 98.2 F 98.1 F Pulse Rate 116 H 96 Respiratory Rate 10 L 18 Blood Pressure 109/69 108/74 Pulse Oximetry 88 L 95 2 L Oxygen Delivery Method Room Air Nasal Cannula Nasal Cannula Oxygen Flow Rate 2 BMI result Body Mass Index 34.0 Appearance: Alert.?Oriented to person, place and time. No acute distress.?Normal affect. Eyes: Pupils equal, round and reactive to light.? ENT: Pharynx normal.?? Neck: Normal inspection.? Neck supple.?? CVS: Heart sounds normal. Normal heart rate and rhythm.? Pulses normal.?? Respiratory: No respiratory distress.? Lung sounds clear to auscultation bilaterally?? Abdomen: Soft and non-tender. Normoactive bowel sounds. Skin: Skin warm and dry.? Normal skin color.? Extremities: No lower extremity edema.? Neuro: Moves all extremities spontaneously. Sensation intact bilaterally. CN II-XII intact. No focal neuro deficits. Ambulates with normal steady gait. Course Reevaluation(s) Reevaluation #1: at this time patient is conscious alert and oriented x3. Room air saturation of 96%. At this time patient reports to me that he does not feel safe to be discharged home today. He is concerned about what I might do to myself . He denies suicidal ideations specifically. However he states that when he decided to use fentanyl earlier today I knew it could have killed me . Patient will be referred to care team for further evaluation/safe disposition. Time: 18:38 Medical Decision Making Medical Decision Making MDM Narrative: patient is a 52-year-old male with past medical history of anxiety, depression, PTSD, opioid use disorder presenting to emergency department for evaluation after an accidental overdose. At this time he denies any physical complaints, he denies any interested in detox. Reporting infrequent use of intranasal fentanyl. Did require 8 mg of intranasal Narcan pre-hospital. We discussed plan of care, will continue to monitor for the next 2 hours to assure no overdose 3 occurrence. He is agreeable with this plan of care. No respiratory distress. Of note, patient was just discharged charged from inpatient psychiatric care yesterday. He was admitted for suicidal ideations, he had medication titration including Zoloft, increased mirtazapine, and started on Adderall. He was discharged with a plan to reside with his aunt which he was comfortable with. At that time he was deemed not to be imminent threat to himself. I again asked patient whether this overdose was intentional or accidental in he states accidental, he adamantly denies any suicidal ideations at this time. Admission/Observation Consideration of admission/observation: Escalation of care including admission/observation considered External Record Review External record reviewed: Inpatient record ( Inpatient psychiatric admission as noted above) Discharge Plan Discharge Clinical Impression: Accidental overdose, Mood disorder Patient Disposition: Still a Patient Prescriptions: No Action sertraline 100 mg tablet 150 mg PO DAILY 30 Days Qty: 45 0RF hydroxyzine HCl 50 mg Tablet 50 mg PO Q6H PRN (Reason: Anxiety) 30 Days Qty: 30 0RF olanzapine 20 mg tablet 20 mg PO BEDTIME 30 Days Qty: 30 0RF bupropion HCl 300 mg tablet extended release 24 hr 300 mg PO DAILY 30 Days Qty: 30 0RF clonazepam 1 mg tablet 1 mg PO BID 14 Days Qty: 28 1RF mirtazapine 30 mg Tablet 30 mg PO BEDTIME 30 Days Qty: 30 0RF
[2022-07-21 18:00] VITALS: BP 108/74; PULSE 96; RESP 18; TEMP 36.7; O2SAT 97
--- NOTE | 2022-07-21 18:00 | MHC.EDTECH ---
1800 rounding done ,vitals sign taken ,pt was given tuna fish sandwich ,chips ,fruits and gingerale for dinner .
[2022-07-21 19:31] VITALS: BP 117/75; PULSE 92; RESP 16; TEMP 36.6
--- NOTE | 2022-07-21 20:37 | PHA.MEDREC ---
Pharmacy Consult ? Medication Reconciliation Pharmacy has completed the medication reconciliation. spoke with patient. med rec complete
--- NOTE | 2022-07-21 20:42 | PHA.MEDREC ---
Pharmacy Consult ? Medication Reconciliation Pharmacy has completed the medication reconciliation.
[2022-07-21 22:00] VITALS: BP 94/57; PULSE 96; RESP 16; TEMP 36.6; O2SAT 94
[2022-07-22] VITALS (7 sets, daily range): BP systolic 96–116; BP diastolic 61–71; PULSE 80–99; RESP 8–18; TEMP 36.6–37.1; O2SAT 94–95
--- NOTE | 2022-07-22 01:02 | PC.NURSE ---
Assumed care of pt. at 1900. Pt. resting quietly in bed at this time. Pt. currently sleeping, respirations even and unlabored, no distress noted.
--- NOTE | 2022-07-22 09:56 | PC.NURSE ---
patient a&ox3, ciwa-3, c/o headache, groundwater monitoring technician intact nsr 90s, vss, pt requesting home medications will speak with provider, call davis within reach,will continue to monitor.
[2022-07-22] MEDS: clonazePAM 1 MG TABLET PO ×2 (10:31→20:30)
[2022-07-22] MEDS: Sertraline HCL 100 MG TABLET PO (10:31)
[2022-07-22] MEDS: buPROPion HCl XL 300 MG TAB.ER.24H PO (10:31)
[2022-07-22] MEDS: Acetaminophen 325 MG TABLET 975 MG PO (10:31)
--- NOTE | 2022-07-22 10:33 | PC.NURSE ---
pt Ax3, vss stable. Pt medicated per order. Urine sample sent to lab.
--- NOTE | 2022-07-22 10:43 | PC.NURSE ---
pt reports having thoughts of suicide over the past few weeks including a plan to intentionally overdose.
[2022-07-22 10:53] LABS: Amphetamine Screen Urine POSITIVE (Not Detect); Barbiturates, Urine Not Detected (Not Detect); Benzodiazepines Screen Urine POSITIVE (Not Detect); Cannabinoid Screen Urine Not Detected (Not Detect); Cocaine Screen Urine POSITIVE (Not Detect); Fentanyl, urine POSITIVE (Not Detect); Opiate Screen Urine POSITIVE (Not Detect); Phencyclidine Screen Urine Not Detected (Not Detect)
[2022-07-22 12:13] LABS: COVID-19 Test Negative (Negative); IDNOW Serial# BCCEAD1C
--- NOTE | 2022-07-22 18:35 | MHC.RECOVSUP ---
? Reason for consult: Recovery Support o Current location: [facility]? o ?Identified substance use concern: ? - Overdose ? Additional information:?Pt refuses to meet with a Senior Foreman at this time.
[2022-07-22] MEDS: OLANZapine 10 MG TABLET 20 MG PO (20:30)
[2022-07-22] MEDS: Mirtazapine 30 MG TABLET PO (20:31)
--- NOTE | 2022-07-22 22:18 | PC.NURSE ---
Addendum entered by Carrol Whitmore 07/22/22 22:23: Per Nova from the Care Team: Plan for Pt to be referred for respite level of care. Pt appears to struggling with intermittent homelessness and substances. Pt was discharged from inpatient psychiatric unit on 07/20/22 and does not meet criteria for ATS admission or presenting in acute crisis requiring an IPLOC admission. Pt verbalizes safety when lower levels of care are discussed and advocating for respite admission. Original Note: Pt moved out of the BH pod @ this time as pt does not require a ligature free environment. Per Jason, pt is not SI/HI, and is calm/cooperative.
--- NOTE | 2022-07-22 22:39 | PC.NURSE ---
this rn assumed care of pt @ [id number]. pt sleeping on stretcher at this time. no new needs at this time
[2022-07-23 00:29] VITALS: RESP 12
--- NOTE | 2022-07-23 00:31 | PC.NURSE ---
pt sleeping on R side on stretcher. RR 12 nonlabored
--- NOTE | 2022-07-23 04:42 | PC.NURSE ---
pt sleeping quietly on stretcher at this time
[2022-07-23 07:13] VITALS: BP 113/74; PULSE 84; RESP 16; TEMP 36.9; O2SAT 96
--- NOTE | 2022-07-23 08:41 | PC.NURSE ---
PT SLEEPING. REFUSED BKFST AT THIS TIME
[2022-07-23] MEDS: clonazePAM 1 MG TABLET PO (09:16)
[2022-07-23] MEDS: Sertraline HCL 100 MG TABLET PO (09:16)
[2022-07-23] MEDS: buPROPion HCl XL 300 MG TAB.ER.24H PO (09:16)
--- NOTE | 2022-07-23 09:17 | PC.NURSE ---
patient sleeping, woke to verbal stimulus, medicated per order, vss, pt denies si/hi, pt denies pain/discomfort, ciwa 0, call davis within reach, will continue to monitor.
--- NOTE | 2022-07-23 10:47 | HO.SUDE ---
This web content writer met w/ patient at bedside, patient was laying in bed, wrapped tightly in blanket. Patient reports snorted 1 bag of heroin, prior to unintentional overdose. Patient reports last use BAG MAKING MACHINE TENDER was 3 weeks ago, snorted a bag of heroin. Patient reports history of 5 overdoses, with intermittent time of abstinence of 3 weeks. Patient reports in the past was on methadone, patient states it did help with cravings. Patient declined MOUD. At this time, patient states is not interested in recovery resources. Patient declined narcan education. Harm reduction reviewed, discussed adulterants in illicit opiates, xylazine/fentanyl, increasing risk of overdose; discussed low tolerance with intermittent time of abstinence. Patient verbalized understanding. Patient declined addiction/recovery team contact information.
== END 2022-07-23 11:44 | disposition other institution (70) ==
PROVIDERS: Nurse Practitioner Family; Emergency Provider Emergency Medicine
DX: T40.411A Poisoning by fentanyl or fentanyl analogs, accidental (unintentional), initial encounter (principal); F14.10 Cocaine abuse, uncomplicated; F39 Unspecified mood [affective] disorder; F17.210 Nicotine dependence, cigarettes, uncomplicated; Z20.822 Contact with and (suspected) exposure to COVID-19; Z20.828 Contact with and (suspected) exposure to other viral communicable diseases; Z71.6 Tobacco abuse counseling; Z79.899 Other long term (current) drug therapy
CPT/HCPCS: 80307; 87635; 99285; S9485

== ENCOUNTER 2022-08-30 15:45 | Inpatient (IN) | payer OTHER, SELFPAY ==
--- NOTE | ~2022-08-30 | CT_ITS ---
EXAMINATION: CT CHEST WITHOUT CONTRAST CT ABDOMEN AND PELVIS WITHOUT CONTRAST CLINICAL INFORMATION: Fever, intractable infection. COMPARISON: No prior reports, most recently 10/21/2012. Images not available., TECHNIQUE: Multidetector volumetric imaging was performed through the chest, abdomen and pelvis without contrast. Sagittal and coronal reformatted images were obtained on the technologist's workstation. Axial MIP volume rendering provided. This CT examination was performed using dose optimization techniques as appropriate, variously including the following: *Automated exposure control *Adjustment of mA and/or kV according to patient size (this includes techniques or standardized protocols for targeted exams where dose is matched to indication/reason for exam; i.e. extremities or head) *Use of iterative reconstruction technique DLP: 961 mGy-cm. FINDINGS: CHEST: Lungs: The central airways are patent. Mild centrilobular emphysema. No area of pleural thickening/scarring is seen in the right upper lobe along the major fissure near the apex. There is also linear scarring/atelectasis along the minor fissure in the right middle lobe anteriorly. Bibasilar atelectasis.. No pleural effusion or pneumothorax. There are no pulmonary parenchymal nodules. Mediastinum: The heart is of normal size. There is no pericardial effusion. Central vascular structures are unremarkable. No hilar or mediastinal lymphadenopathy. Coronary Artery Calcification: None visualized on this study. Chest Wall/Axilla: No lymphadenopathy. No chest wall mass. ABDOMEN/PELVIS: Liver, Gallbladder, Biliary Tree: The liver is normal in size, shape, and attenuation. No focal hepatic lesion or biliary ductal dilatation is present. The gallbladder is unremarkable with no evidence of radiopaque gallstones, gallbladder wall thickening, or pericholecystic inflammatory changes. Pancreas: Unremarkable. Spleen: Unremarkable. Adrenal Glands: Unremarkable. Kidneys and Ureters: The kidneys are normal in size, shape, and attenuation. No hydronephrosis, hydroureter or calculi seen. No perinephric stranding. Bladder: Unremarkable. Gastrointestinal Tract: The stomach and small bowel appear unremarkable. No dilated loops of bowel or evidence of obstruction. No diverticulosis. No colonic wall thickening or adjacent inflammatory changes. No free air or free fluid. The appendix is diminutive, without inflammation. Abdominal Wall: No hernia is demonstrated. Lymphovascular Structures: Lymph nodes: Normal. Vascular: Unremarkable. Pelvic Viscera: The prostate and seminal vesicles are unremarkable. OSSEOUS STRUCTURES: No suspicious sclerotic or lytic bone lesions are identified. Mild degenerative changes throughout the spine. CT/CT abdomen pelvis wo IV con IMPRESSION: 1. No acute findings in the chest, abdomen, or pelvis. No inflammatory changes. 2. Mild emphysema.
--- NOTE | ~2022-08-30 | US_ITS ---
EXAMINATION: US VENOUS ULTRASOUND WITH DOPPLER LOWER EXTREMITY, BILATERAL CLINICAL INFORMATION: Lower extremity swelling. COMPARISON: None available. TECHNIQUE: Ultrasound of the deep veins is performed from the hip to the calf with compression sonography and color and pulse Doppler assessment. Spectral analysis with color-flow imaging is performed. FINDINGS: The common femoral vein is compressible and exhibits a normal phasic waveform, bilaterally; this suggests that the iliac veins are widely patent above. Within each proximal thigh, the visualized profunda femoris vein is patent. The visualized greater saphenous veins and saphenofemoral junctions are normal. Superficial femoral vein is patent in the proximal, mid and distal aspect of each thigh. Popliteal vein is normal to the level of the trifurcation, bilaterally, and the visualized posterior tibial and peroneal veins are patent. No evidence of Leyva's cyst. US/US venous duplex LE BI IMPRESSION: No evidence of deep vein thrombosis in either lower extremity.
--- NOTE | ~2022-08-30 | MR_ITS ---
EXAMINATION: MR BRAIN WITH AND WITHOUT CONTRAST MR CERVICAL SPINE WITHOUT CONTRAST CLINICAL INFORMATION: Overdose, rhabdomyolysis, cerebellar lesion COMPARISON: None TECHNIQUE: MRI of the brain was obtained using routine sequences with and without contrast. Intravenous contrast: Gadavist 10 mL. MRI of the cervical spine was obtained using routine sequences without contrast. FINDINGS: BRAIN: There is diffusion and T2 FLAIR hyperintensity within the high left paramedian superior frontal gyrus, symmetric bilateral globi pallidi, right corpus stratum, bilateral cerebellar hemispheres, and query to a lesser extent along the right paramedian splenium of the corpus callosum. Patchy areas of corresponding hypointensity on ADC maps of the signal abnormality in the deep bosch nuclei. There is ill-defined reticular enhancement in the region of signal abnormality in the posterior fossa with multiple punctate foci of susceptibility, likely microhemorrhages. Regional mass effect along the cerebellar folia without effacement of the fourth ventricle or herniation pattern. This is superimposed on ill-defined hazy T2 FLAIR hyperintensity within the deep and periventricular white matter. The ventricles and sulci are normal in size and configuration without significant volume loss or hydrocephalus. 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 Normal dural venous sinus flow voids. Normal appearance of the midline structures. The orbits are grossly unremarkable. Scattered moderate mucosal disease throughout the ethmoid air cells and within the left maxillary sinus alveolar recess. Trace bilateral mastoid effusions. Normal marrow signal. Partially imaged fluid within the right suboccipital/imaged upper cervical soft tissues. CERVICAL SPINE: Mildly motion degraded examination. Mild levocurvature of the mid to lower cervical spine. The cervical lordosis is preserved. There is no significant spondylolisthesis. Vertebral body heights are maintained. There is no suspicious osseous lesion. Multilevel disc desiccation with preserved intervertebral disc height. Minimal cervical spondylosis, notably with annular disc bulge and broad-based left paracentral disc protrusion at C5-C6, however without significant spinal canal or neural foraminal stenosis at any level. There is a left paracentral disc protrusion at T2-T3 without significant spinal canal stenosis. Motion artifact limits assessment of the cervical cord, however no gross abnormality is seen. No epidural fluid collection, mass, or hematoma. Partially imaged edema tracking within the myofascial planes of the right greater than left cervical paraspinal soft tissues with some patchy intramuscular edema, which may be related to reported history of rhabdomyolysis, posttraumatic, or reflective of grade 1 strains. The flow voids of the major cervical vessels are maintained. The visualized intracranial structures are normal. No demonstrated abnormalities in the visualized neck. MR/MR cervical spine wo con IMPRESSION: 1. Regions of signal abnormality within the supratentorial and infratentorial parenchyma, including symmetric bilateral involvement of the globi pallidi and cerebellar hemispheres, most compatible with toxic/metabolic encephalopathy given the provided clinical history. This is superimposed on a background of hazy ill-defined T2 FLAIR hyperintensity in the deep and periventricular white matter. Ill-defined reticular enhancement in the region of signal abnormality in the cerebellar hemispheres, likely on the basis of blood brain barrier disruption, with a few punctate microhemorrhages. Regional mass effect in the posterior fossa without effacement of the fourth ventricle. 2. No significant spinal canal or neural foraminal stenosis in the cervical spine. No gross cord signal abnormality, within limitations of motion artifact. 3. Partially imaged edema tracking within the myofascial planes of the right greater than left cervical paraspinal soft tissues with some patchy intramuscular edema, which may be related to reported history of rhabdomyolysis, posttraumatic contusions, or reflective of grade 1 strains.
--- NOTE | ~2022-08-30 | US_ITS ---
EXAMINATION: ARTERIAL DUPLEX BILATERAL LEGS CLINICAL INFORMATION: Purple toes COMPARISON: None TECHNIQUE: Duplex Doppler of the bilateral lower extremity arterial systems was performed. FINDINGS: RIGHT: Common femoral: PSV 111 cm/s. Monophasic waveform. Deep femoral: PSV 101 cm/s. Triphasic waveform. Proximal superficial femoral: PSV 98 cm/s. Monophasic waveform. Mid superficial femoral: PSV 138 cm/s. Monophasic waveform. Distal superficial femoral: PSV 125 cm/s. Monophasic waveform. Popliteal: PSV 98 cm/s. Triphasic waveform. Posterior tibial: PSV 95 cm/s. Monophasic waveform. LEFT: Common femoral: PSV 146 cm/s. Triphasic waveform. Deep femoral: PSV 96 cm/s. Triphasic waveform. Proximal superficial femoral: PSV 124 cm/s. Triphasic waveform. Mid superficial femoral: PSV 119 cm/s. Triphasic waveform. Distal superficial femoral: PSV 116 cm/s. Triphasic waveform. Popliteal: PSV 90 cm/s. Monophasic waveform. Posterior tibial: PSV 129 cm/s. Biphasic waveform. Plaque is identified in the left profunda femoral artery. US/US arterial duplex LE BI IMPRESSION: No arterial occlusion. On the right there is mild stenosis identified at the level of the mid superficial femoral artery. On the left there is mild stenosis seen at the common femoral artery and posterior tibial artery.
--- NOTE | ~2022-08-30 | IR_ITS ---
EXAMINATION: X IR CVC CATHETER REMOVAL CLINICAL INFORMATION: Improving renal function. Temporary dialysis catheter no longer needed. COMPARISON: Previous catheter placement 09/01/2022. TECHNIQUE: The right external temporary dialysis catheter was removed. Manual pressure was held to achieve hemostasis. Dry sterile dressing was applied. No images obtained. No specimen sent. FINDINGS: Same. IR/IR cvc remove any age IMPRESSION: Right internal jugular temporary dialysis catheter removal.
--- NOTE | ~2022-08-30 | MR_ITS ---
MR THORACIC SPINE WITHOUT IV CONTRAST CLINICAL INFORMATION: Flexion myelopathy. COMPARISON: Brain and cervical spine MRI 09/02/2022. TECHNIQUE: MRI of the thoracic spine was obtained using routine sequences without contrast. FINDINGS: There are 12 rib bearing thoracic type vertebral bodies. There are extensive T2 signal changes involving the paraspinal musculature at the imaged thoracic spine, possibly the sequela of rhabdomyolysis given previous clinical history. Multilevel endplate osteophytes. Vertebral body heights are maintained. The disc volumes are overall preserved. There is no bone marrow edema. There are no acute fractures. Thoracic cord morphology is normal and there are no definite thoracic cord signal changes accounting for artifact though assessment is limited. Small shallow paracentral disc protrusions at T2-T3, T3-T4, and T4-T5 mildly indents the ventral thecal sac without compressing the cord. There are small bilateral pleural effusions with adjacent atelectasis. MR/MR thoracic spine wo con IMPRESSION: - There are extensive T2 signal changes involving the paraspinal musculature at the imaged thoracic spine, possibly the sequela of rhabdomyolysis given previous clinical history. - Mild thoracic spondylosis. No severe central canal stenosis and no severe foraminal stenosis within the thoracic spine. No definite thoracic cord signal changes with assessment limited by the degree of artifact. - There are small bilateral pleural effusions with adjacent atelectasis.
--- NOTE | ~2022-08-30 | IR_ITS ---
PROCEDURE: IR INSERTION OF CENTRAL VENOUS CATHETER CLINICAL INFORMATION: Renal failure. COMPARISON: None available. TECHNIQUE: Following explaining ultrasound fluoroscopy-guided placement of temporary dialysis catheter via the right jugular vein procedure, benefits and risks, a written consent was obtained. Patient was placed supine on fluoroscopy table and preliminary ultrasound imaging was obtained through the right neck. An optimal site was selected, marked, cleaned and draped in usual sterile manner. 1% lidocaine was inserted at puncture site. A single wall needle was then advanced under ultrasound guidance and right jugular vein was accessed. After observing venous return, a thin guidewire was advanced and needle withdrawn. A 5 Salvadorean dilator was placed over the wire and the short wire was exchanged for 0.35 J-wire and the wire was advanced under fluoroscopy into the IVC. The tract was then dilated with 8-, 10- and 12-Salvadorean dilators. A 12-Salvadorean Mahurkar dual lumen catheter was then advanced over the guidewire and placed in SVC. The catheter was then anchored with two 3-0 nonabsorbable sutures to the skin. Both ports of the catheters were flushed with saline followed by heparin instillation. Sterile dressing applied postprocedure. Hemostasis was achieved completely. Patient tolerated procedure extremely well. No conscious sedation was utilized during the exam. All elements of maximal sterile barrier technique followed including use of cap, mask, sterile gown, sterile gloves, a sterile full body drape and hand hygiene. Also followed skin preparation with 2% chlorhexidine for cutaneous antisepsis, and sterile ultrasound preparation with sterile gel and probe cover when applicable. FINDINGS: On preliminary ultrasound imaging there is patent IVC. The carotid artery is patent as well. A 12-Salvadorean 13 cm long temporary dialysis catheter was inserted into the right jugular vein with its tip in the SVC. The catheter is ready for use. IR/IR cvc insert non tunnel IMPRESSION: Successful ultrasound fluoroscopy-guided placement of right-sided temporary dialysis catheter. The catheter is ready for use. FLUOROSCOPY TIME: 1.1 minutes. DOSE AREA PRODUCT: 373 cGy-cm2.
[2022-08-30 16:00] VITALS: BP 116/62; PULSE 104; O2SAT 97
[2022-08-30 17:02] VITALS: BP 141/90; PULSE 100; RESP 16; TEMP 36.4; O2SAT 97; BMI 32.5
--- NOTE | 2022-08-30 17:07 | ED.GENADULT ---
HPI - General Adult General Chief complaint: Extremity Problem <Johan Tavares - Last Filed: 08/30/22 17:08> Stated complaint: leg pain <Johan Tavares - Last Filed: 08/30/22 17:08> Time Seen by Provider: 08/30/22 19:50 <Johan Tavares - Last Filed: 08/30/22 17:08> Source: patient and EMS <Yari Brooks NP - Last Filed: 08/31/22 01:16> Mode of arrival: EMS <Yari Brooks NP - Last Filed: 08/31/22 01:16> Limitations: no limitations <Yari Brooks NP - Last Filed: 08/31/22 01:16> History of Present Illness HPI narrative: 52-year-old male presents via EMS for leg pain and inability to ambulate. <Yari Brooks NP - Last Filed: 08/31/22 01:16> Onset (ago): day(s) (3) <Yari Brooks NP - Last Filed: 08/31/22 01:16> Location: left, right and lower extremity <Yari Brooks NP - Last Filed: 08/31/22 01:16> Radiation: extremity <Yari Brooks NP - Last Filed: 08/31/22 01:16> Severity: severe <Yari Brooks NP - Last Filed: 08/31/22 01:16> Severity scale (1-10): 10 <aYri Brooks NP - Last Filed: 08/31/22 01:16> Quality: aching <Yari Brooks NP - Last Filed: 08/31/22 01:16> Pain Consistency: constant <Yari Brooks NP - Last Filed: 08/31/22 01:16> Relieving factors: none <Yari Brooks NP - Last Filed: 08/31/22 01:16> Exacerbating factors: movement <Yari Brooks NP - Last Filed: 08/31/22 01:16> Associated symptoms: fever/chills, malaise and weakness <Yari Brooks NP - Last Filed: 08/31/22 01:16> Treatments prior to arrival: none <Yari Brooks NP - Last Filed: 08/31/22 01:16> Related Data Home medications: Home Medications Medication Instructions Recorded Confirmed ibuprofen 200 mg tablet 200 mg PO DAILY PRN Pain 07/21/22 07/21/22 sertraline 100 mg tablet 100 mg PO DAILY 07/21/22 07/21/22 Previous Rx's Medication Instructions Recorded bupropion HCl 300 mg 24 hr tablet, 300 mg PO DAILY 30 days #30 tabs 07/20/22 extended release clonazepam 1 mg tablet 1 mg PO BID 14 days #28 tabs 07/20/22 hydroxyzine HCl 50 mg tablet 50 mg PO Q6H PRN Anxiety 30 days 07/20/22 #30 tabs mirtazapine 30 mg tablet 30 mg PO BEDTIME 30 days #30 tabs 07/20/22 olanzapine 20 mg tablet 20 mg PO BEDTIME 30 days #30 tabs 07/20/22 <Johan Tavares - Last Filed: 08/30/22 17:08> Allergies/adverse reactions: Allergies Allergy/AdvReac Type Severity Reaction Status Date / Time No Known Allergies Allergy Verified 11/07/20 02:03 [No Known Allergies*] <Johan Tavares - Last Filed: 08/30/22 17:08> Review of Systems Review of Systems: Constitutional: No Fever, positive Chills Cardiovascular: No Chest Pain, No SOB Respiratory: No Cough, No Dyspnea Gastrointestinal: No Nausea, No Vomiting, No Diarrhea, No abdominal Pain Genitourinary: No Dysuria, No Hematuria Musculoskeletal: positive bilateral lower extremity weakness and pain, No Myalgias, No Joint Swelling Skin: No Skin lacerations, No rash Neuro: Positive Weakness, positive Numbness, No Paresthesias, No Dizziness, No Headache <JENNIFER Cox Last Filed: 08/31/22 01:16> Yes all other systems are reviewed and are negative <Yari Brooks NP - Last Filed: 08/31/22 01:16> PMFSH Past Medical History Attestation statement: The following information was validated with the patient. <JENNIFER Cox Last Filed: 08/31/22 01:16> Source: old records reviewed <Yari Brooks NP - Last Filed: 08/31/22 01:16> Medical History: Medical History Anxiety Chronic post-traumatic stress disorder (PTSD) Depression Opioid dependence on agonist therapy Suicidal ideation <Johan Tavares - Last Filed: 08/30/22 17:08> Social History Social History: Social History Household Members: None Housing: Homeless Do you presently have visiting nurse or other home services: No Alcohol intake: never Patient Tobacco Use Status: Current everyday Tobacco user Tobacco use type: Cigarette Cigarette Packs Per Day: 0.5 Cigarettes Per Day: 10.0 Years Smoked: 20 Smoked in Last 30 Days: Yes e-Cigarette/Vaping Use: Never Used Second Hand Smoke Exposure: No Use of substances other than those prescribed or required for medical reasons: Yes Substance Use Type: Crack/Cocaine and Opiates Advance Directives: No Advance Directives Information Provided: No service: No Sexual orientation: Straight/Heterosexual <Johan Tavares - Last Filed: 08/30/22 17:08> Physical Exam ED Vital Signs: Vital Signs - 24 hr 08/30/22 17:02 08/30/22 20:49 Temperature 97.5 F 98.9 F Pulse Rate 100 98 Respiratory Rate 16 22 H Blood Pressure 141/90 H 139/73 Pulse Oximetry 97 96 Oxygen Delivery Method Room Air Room Air BMI result Body Mass Index 32.5 <Johan Tavares - Last Filed: 08/30/22 17:08> Vital Signs - 24 hr 08/30/22 17:02 08/30/22 20:49 Temperature 97.5 F 98.9 F Pulse Rate 100 98 Respiratory Rate 16 22 H Blood Pressure 141/90 H 139/73 Pulse Oximetry 97 96 Oxygen Delivery Method Room Air Room Air BMI result Body Mass Index 32.5 <Yari Brooks NP - Last Filed: 08/31/22 01:16> Appearance: Alert. Oriented X3. Moderate distress. Eyes: Pupils equal, round and reactive to light. ENT: Dry mucous membranes. Neck: Normal inspection. Neck supple. CVS: Normal heart rate and rhythm. Pulses normal. Respiratory: No respiratory distress. Breath sounds normal. Skin: Skin warm and dry. Normal skin color. Normal skin turgor. Extremities: Bilateral lower extremity edema. Purple toes and metatarsals to the left foot, purple toes of the right foot. Discoloration noted bilaterally from foot to thigh. Neuro: No motor deficit. No sensory deficit. Cranial nerves 2-12 intact. <Yari Brooks NP - Last Filed: 08/31/22 01:16> Course Course Course Narrative: 52-year-old male presents for evaluation of ?I was trapped under a bridge for 3 days. ? He is quite vague with his history. I do not believe anything was laying on top of him dropping him down. I did order labs, a CPK to evaluate for rhabdo. <Johan Tavares - Last Filed: 08/30/22 17:08> 52-year-old male presents for evaluation of ?I was trapped under a bridge for 3 days. ? He is quite vague with his history. I do not believe anything was laying on top of him dropping him down. I did order labs, a CPK to evaluate for rhabdo. 21:00 52-year-old male presents via EMS for lower extremity pain, weakness, and inability to ambulate. Patient stated that he is homeless, and he was trapped under a bridge for 3 days and was unable to move. States that he was screaming for days but no one came to help him. On day 3 (today) he was able to find his cell phone, and called 911. Patient is very vague about his story, states that he is homeless. Provider in triage ordered lab values for him. Upon physical exam patient looks tired, swollen hands and lower extremities. Patient is able to wiggle his toes, and bend his knees. Patient is admits that he cannot walk however he was able to ambulate from the stretcher to his bed. Patient's heart rate is elevated at 100, blood pressure 141/90. Patient does not report any IV drug use, low likelihood of epidural abscess, patient able to feel his groin and lower legs, low likelihood of cauda equina. Patient has not voided in several days, since he was ?stuck under a bridge?. I do not feel that this patient has suffered any physical trauma, while his lower extremities are discolored is not consistent with crush injury. 21:17 critical lab values troponin 174.6, EKG does not indicate ST elevations or depressions. Creatinine 10.3. BUN 155. Prior values were within normal limits. Order for 3 L of fluid. CPK pending. Most likely rhabdo. 22:40 patient's feet noted to have purple toes bilaterally. Please refer to physical exam photographs. Order for venous and arterial duplex bilaterally. 23:45 CPK 30,514. IV fluids at 250 mL/hr, was given morphine and Zofran for pain management and antiemetic. Patient admitted to hospitalist service for rhabdomyolysis. 01:13 repeat troponin 154.6. <Yari Brooks NP - Last Filed: 08/31/22 01:16> Consultations Consultation #1: Hospitalist <Yari Brooks NP - Last Filed: 08/31/22 01:16> Medications Administered Generic Name Dose Route Start Last Admin Trade Name Freq PRN Reason Stop Dose Admin Lactated Ringer's 1,000 mls @ 250 mls/hr 08/30/22 23:45 08/30/22 23:57 Lr IVCONT 250 mls/hr .Q4H IRVING Administration Sodium Chloride 3 ml 08/31/22 00:00 08/30/22 23:58 0.9 % Sodium Chloride Flush 3 Ml Syringe IVFLUSH 3 ml QSHIFT IRVING Administration Discontinued Medications Generic Name Dose Route Start Last Admin Trade Name Freq PRN Reason Stop Dose Admin Sodium Chloride 1,000 mls @ 999 mls/hr 08/30/22 20:00 08/30/22 22:26 Ns IVCONT 08/30/22 21:00 Infused .Q1H1M IRVING Infusion Sodium Chloride 1,000 mls @ 999 mls/hr 08/30/22 21:30 08/30/22 23:00 Ns IVCONT 08/30/22 22:30 Infused .Q1H1M IRVING Infusion Sodium Chloride 1,000 mls @ 999 mls/hr 08/30/22 21:30 08/30/22 23:35 Ns IVCONT 08/30/22 22:30 Infused .Q1H1M IRVING Infusion Sodium Chloride 1,000 mls @ 999 mls/hr 08/30/22 21:30 08/30/22 22:28 Ns IVCONT 08/30/22 22:30 Not Given .Q1H1M IRVING Ceftriaxone Sodium 1 gm/ 50 mls @ 100 mls/hr 08/30/22 23:40 08/31/22 01:06 Sodium Chloride IV 08/31/22 00:09 Infused ONCE ONE Infusion Morphine Sulfate 4 mg 08/30/22 23:32 08/30/22 23:58 Morphine Sulfate 4 Mg/Ml Cartridge IVPUSH 08/30/22 23:33 4 mg ONCE ONE Administration Protocol Ondansetron HCl 4 mg 08/30/22 23:32 08/30/22 23:58 Ondansetron Hcl 4 Mg/2 Ml Vial IVPUSH 08/30/22 23:33 4 mg ONCE ONE Administration <Johan Tavares - Last Filed: 08/30/22 17:08> Medications Administered Generic Name Dose Route Start Last Admin Trade Name Freq PRN Reason Stop Dose Admin Lactated Ringer's 1,000 mls @ 250 mls/hr 08/30/22 23:45 08/30/22 23:57 Lr IVCONT 250 mls/hr .Q4H IRVING Administration Sodium Chloride 3 ml 08/31/22 00:00 08/30/22 23:58 0.9 % Sodium Chloride Flush 3 Ml Syringe IVFLUSH 3 ml QSHIFT IRVING Administration Discontinued Medications Generic Name Dose Route Start Last Admin Trade Name Freq PRN Reason Stop Dose Admin Sodium Chloride 1,000 mls @ 999 mls/hr 08/30/22 20:00 08/30/22 22:26 Ns IVCONT 08/30/22 21:00 Infused .Q1H1M IRVING Infusion Sodium Chloride 1,000 mls @ 999 mls/hr 08/30/22 21:30 08/30/22 23:00 Ns IVCONT 08/30/22 22:30 Infused .Q1H1M IRVING Infusion Sodium Chloride 1,000 mls @ 999 mls/hr 08/30/22 21:30 08/30/22 23:35 Ns IVCONT 08/30/22 22:30 Infused .Q1H1M IRVING Infusion Sodium Chloride 1,000 mls @ 999 mls/hr 08/30/22 21:30 08/30/22 22:28 Ns IVCONT 08/30/22 22:30 Not Given .Q1H1M IRVING Ceftriaxone Sodium 1 gm/ 50 mls @ 100 mls/hr 08/30/22 23:40 08/31/22 01:06 Sodium Chloride IV 08/31/22 00:09 Infused ONCE ONE Infusion Morphine Sulfate 4 mg 08/30/22 23:32 08/30/22 23:58 Morphine Sulfate 4 Mg/Ml Cartridge IVPUSH 08/30/22 23:33 4 mg ONCE ONE Administration Protocol Ondansetron HCl 4 mg 08/30/22 23:32 08/30/22 23:58 Ondansetron Hcl 4 Mg/2 Ml Vial IVPUSH 08/30/22 23:33 4 mg ONCE ONE Administration <Yari Brooks NP - Last Filed: 08/31/22 01:16> Medical Decision Making Differential Diagnosis Differential Diagnoses: The differential diagnosis associated with the presentation includes <Yari Brooks NP - Last Filed: 08/31/22 01:16> Rhabdo, sepsis, ACS, fever of unknown origin <Yari Brooks NP - Last Filed: 08/31/22 01:16> Admission/Observation Consideration of admission/observation: Escalation of care including admission/observation considered <Yari Brooks NP - Last Filed: 08/31/22 01:16> This patient will require admission <Yari Brooks NP - Last Filed: 08/31/22 01:16> Consult Healthcare Provider Management of the patient was discussed with: Hospitalist <Yari Brooks NP - Last Filed: 08/31/22 01:16> Lab Data MDM Lab Attestation statement: I reviewed the patient's lab results. <Yari Brooks NP - Last Filed: 08/31/22 01:16> Result Diagrams: 08/30/22 20:36 08/30/22 20:36 <Johan Tavares - Last Filed: 08/30/22 17:08> Labs: Lab Results 08/30/22 08/30/22 08/30/22 Range/Units 20:36 20:36 20:36 WBC 15.6 H (4.8-10.8) X10*3/uL RBC 5.23 (4.60-5.80) X10*6/uL Hgb 14.7 (14.0-18.0) g/dl Hct 42.1 (42.0-52.0) % MCV 80.5 (80.0-98.0) fL MCH 28.1 (27.0-33.0) pg MCHC 34.9 (31.0-36.0) g/dl RDW 15.5 (11.0-16.0) % Plt Count 247 (160-400) X10*3/uL MPV 10.0 (9.4-12.4) fL Immature Gran % (Auto) 0.8 H (0.0-0.4) % Neut % (Auto) 79.4 H (45-73) % Lymph % (Auto) 7.9 L (20-40) % [place] % (Auto) 11.5 H (2-11) % Eos % (Auto) 0.2 (0-4) % Baso % (Auto) 0.2 (0-2) % Lymph # (Auto) 1.2 (1.2-4.9) X10*3/uL [place] # (Auto) 1.8 H (0.1-1.2) X10*3/uL Eos # (Auto) 0.0 (0.0-0.4) X10*3/uL Baso # (Auto) 0.0 (0.0-0.2) X10*3/uL Abs Immat Gran (auto) 0.13 H (0.00-0.03) X10*3/uL Absolute Neuts (auto) 12.4 H (2.0-8.3) x10*3/uL Absolute Nucleated RBC 0.000 (0.0-0.012) X10*3/uL Nucleated RBC % (auto) 0.0 (0.0-0.2) /100WBC Smear Tech's Comments VERIFIED ESR (0-15) MM/HR Sodium 137 (135-145) mmol/L Potassium 5.5 H D (3.3-5.1) mmol/L Chloride 98 (96-108) mmol/L Carbon Dioxide 15 L (22-29) mmol/L Anion Gap 30 H (12-20) BUN 155 H (9-16) mg/dL Creatinine 10.03 H* (0.5-1.4) mg/dL Estim Creat Clear Calc 10.0 Estimated GFR 5 Random Glucose 134 H (60-115) mg/dL Lactic Acid (0.5-2.0) mmol/L Calcium 7.3 L D (8.4-10.2) mg/dL Magnesium (1.6-2.6) mg/dL Total Bilirubin 0.8 (0.0-1.0) mg/dL AST 277 H (5-37) U/L ALT 674 H (0-40) U/L Alkaline Phosphatase 73 (39-117) U/L Total Creatine Kinase 41222 H (38-174) U/L Troponin I High Sens 174.6 H* (<3.5-35.0) ng/L Total Protein 6.4 L (6.5-8.0) g/dL Albumin 3.7 (3.5-5.0) g/dL Urine Color Urine Appearance Urine pH (5.0-9.0) Ur Specific [place] (1.005-1.025) Urine Protein (Neg-Trace) mg/dL Urine Glucose (UA) (Negative) mg/dL Urine Ketones (Negative) mg/dL Urine Blood (Negative) Urine Nitrite (Negative) Ur Leukocyte Esterase (Negative) Urine RBC (0-2) /HPF Urine WBC (0-5) /HPF Ur Squamous Epith Cells (0-2) /HPF Urine Bacteria (None Seen) Hyaline Casts (0-2) /LPF Ethyl Alcohol mg/dL Influenza Type A (PCR) (Negative) Influenza Type B (PCR) (Negative) RSV RNA Qual (PCR) (Negative) SARS-CoV-2 RNA (RT-PCR) (Negative) 08/30/22 08/30/22 08/30/22 Range/Units 20:36 20:36 20:36 WBC (4.8-10.8) X10*3/uL RBC (4.60-5.80) X10*6/uL Hgb (14.0-18.0) g/dl Hct (42.0-52.0) % MCV (80.0-98.0) fL MCH (27.0-33.0) pg MCHC (31.0-36.0) g/dl RDW (11.0-16.0) % Plt Count (160-400) X10*3/uL MPV (9.4-12.4) fL Immature Gran % (Auto) (0.0-0.4) % Neut % (Auto) (45-73) % Lymph % (Auto) (20-40) % [place] % (Auto) (2-11) % Eos % (Auto) (0-4) % Baso % (Auto) (0-2) % Lymph # (Auto) (1.2-4.9) X10*3/uL [place] # (Auto) (0.1-1.2) X10*3/uL Eos # (Auto) (0.0-0.4) X10*3/uL Baso # (Auto) (0.0-0.2) X10*3/uL Abs Immat Gran (auto) (0.00-0.03) X10*3/uL Absolute Neuts (auto) (2.0-8.3) x10*3/uL Absolute Nucleated RBC (0.0-0.012) X10*3/uL Nucleated RBC % (auto) (0.0-0.2) /100WBC Smear Tech's Comments ESR 73 H (0-15) MM/HR Sodium (135-145) mmol/L Potassium (3.3-5.1) mmol/L Chloride (96-108) mmol/L Carbon Dioxide (22-29) mmol/L Anion Gap (12-20) BUN (9-16) mg/dL Creatinine (0.5-1.4) mg/dL Estim Creat Clear Calc Estimated GFR Random Glucose (60-115) mg/dL Lactic Acid 1.7 (0.5-2.0) mmol/L Calcium (8.4-10.2) mg/dL Magnesium 3.3 H (1.6-2.6) mg/dL Total Bilirubin (0.0-1.0) mg/dL AST (5-37) U/L ALT (0-40) U/L Alkaline Phosphatase (39-117) U/L Total Creatine Kinase (38-174) U/L Troponin I High Sens (<3.5-35.0) ng/L Total Protein (6.5-8.0) g/dL Albumin (3.5-5.0) g/dL Urine Color Urine Appearance Urine pH (5.0-9.0) Ur Specific [place] (1.005-1.025) Urine Protein (Neg-Trace) mg/dL Urine Glucose (UA) (Negative) mg/dL Urine Ketones (Negative) mg/dL Urine Blood (Negative) Urine Nitrite (Negative) Ur Leukocyte Esterase (Negative) Urine RBC (0-2) /HPF Urine WBC (0-5) /HPF Ur Squamous Epith Cells (0-2) /HPF Urine Bacteria (None Seen) Hyaline Casts (0-2) /LPF Ethyl Alcohol < 10 mg/dL Influenza Type A (PCR) (Negative) Influenza Type B (PCR) (Negative) RSV RNA Qual (PCR) (Negative) SARS-CoV-2 RNA (RT-PCR) (Negative) 08/30/22 08/30/22 Range/Units 20:36 22:42 WBC (4.8-10.8) X10*3/uL RBC (4.60-5.80) X10*6/uL Hgb (14.0-18.0) g/dl Hct (42.0-52.0) % MCV (80.0-98.0) fL MCH (27.0-33.0) pg MCHC (31.0-36.0) g/dl RDW (11.0-16.0) % Plt Count (160-400) X10*3/uL MPV (9.4-12.4) fL Immature Gran % (Auto) (0.0-0.4) % Neut % (Auto) (45-73) % Lymph % (Auto) (20-40) % [place] % (Auto) (2-11) % Eos % (Auto) (0-4) % Baso % (Auto) (0-2) % Lymph # (Auto) (1.2-4.9) X10*3/uL [place] # (Auto) (0.1-1.2) X10*3/uL Eos # (Auto) (0.0-0.4) X10*3/uL Baso # (Auto) (0.0-0.2) X10*3/uL Abs Immat Gran (auto) (0.00-0.03) X10*3/uL Absolute Neuts (auto) (2.0-8.3) x10*3/uL Absolute Nucleated RBC (0.0-0.012) X10*3/uL Nucleated RBC % (auto) (0.0-0.2) /100WBC Smear Tech's Comments ESR (0-15) MM/HR Sodium (135-145) mmol/L Potassium (3.3-5.1) mmol/L Chloride (96-108) mmol/L Carbon Dioxide (22-29) mmol/L Anion Gap (12-20) BUN (9-16) mg/dL Creatinine (0.5-1.4) mg/dL Estim Creat Clear Calc Estimated GFR Random Glucose (60-115) mg/dL Lactic Acid (0.5-2.0) mmol/L Calcium (8.4-10.2) mg/dL Magnesium (1.6-2.6) mg/dL Total Bilirubin (0.0-1.0) mg/dL AST (5-37) U/L ALT (0-40) U/L Alkaline Phosphatase (39-117) U/L Total Creatine Kinase (38-174) U/L Troponin I High Sens (<3.5-35.0) ng/L Total Protein (6.5-8.0) g/dL Albumin (3.5-5.0) g/dL Urine Color Dark Yellow Urine Appearance Cloudy Urine pH 5.0 (5.0-9.0) Ur Specific [place] 1.020 (1.005-1.025) Urine Protein 100 (2+) H (Neg-Trace) mg/dL Urine Glucose (UA) 500 H (Negative) mg/dL Urine Ketones Trace (Negative) mg/dL Urine Blood Large (3+) H (Negative) Urine Nitrite Negative (Negative) Ur Leukocyte Esterase Trace H (Negative) Urine RBC 11-20 H (0-2) /HPF Urine WBC 0-5 (0-5) /HPF Ur Squamous Epith Cells 0-2 (0-2) /HPF Urine Bacteria None Seen (None Seen) Hyaline Casts 0-2 (0-2) /LPF Ethyl Alcohol mg/dL Influenza Type A (PCR) NEGATIVE (Negative) Influenza Type B (PCR) NEGATIVE (Negative) RSV RNA Qual (PCR) NEGATIVE (Negative) SARS-CoV-2 RNA (RT-PCR) NEGATIVE (Negative) <Johan Tavares - Last Filed: 08/30/22 17:08> Lab Results 08/30/22 08/30/22 08/30/22 Range/Units 20:36 20:36 20:36 WBC 15.6 H (4.8-10.8) X10*3/uL RBC 5.23 (4.60-5.80) X10*6/uL Hgb 14.7 (14.0-18.0) g/dl Hct 42.1 (42.0-52.0) % MCV 80.5 (80.0-98.0) fL MCH 28.1 (27.0-33.0) pg MCHC 34.9 (31.0-36.0) g/dl RDW 15.5 (11.0-16.0) % Plt Count 247 (160-400) X10*3/uL MPV 10.0 (9.4-12.4) fL Immature Gran % (Auto) 0.8 H (0.0-0.4) % Neut % (Auto) 79.4 H (45-73) % Lymph % (Auto) 7.9 L (20-40) % [place] % (Auto) 11.5 H (2-11) % Eos % (Auto) 0.2 (0-4) % Baso % (Auto) 0.2 (0-2) % Lymph # (Auto) 1.2 (1.2-4.9) X10*3/uL [place] # (Auto) 1.8 H (0.1-1.2) X10*3/uL Eos # (Auto) 0.0 (0.0-0.4) X10*3/uL Baso # (Auto) 0.0 (0.0-0.2) X10*3/uL Abs Immat Gran (auto) 0.13 H (0.00-0.03) X10*3/uL Absolute Neuts (auto) 12.4 H (2.0-8.3) x10*3/uL Absolute Nucleated RBC 0.000 (0.0-0.012) X10*3/uL Nucleated RBC % (auto) 0.0 (0.0-0.2) /100WBC Smear Tech's Comments VERIFIED ESR (0-15) MM/HR Sodium 137 (135-145) mmol/L Potassium 5.5 H D (3.3-5.1) mmol/L Chloride 98 (96-108) mmol/L Carbon Dioxide 15 L (22-29) mmol/L Anion Gap 30 H (12-20) BUN 155 H (9-16) mg/dL Creatinine 10.03 H* (0.5-1.4) mg/dL Estim Creat Clear Calc 10.0 Estimated GFR 5 Random Glucose 134 H (60-115) mg/dL Lactic Acid (0.5-2.0) mmol/L Calcium 7.3 L D (8.4-10.2) mg/dL Magnesium (1.6-2.6) mg/dL Total Bilirubin 0.8 (0.0-1.0) mg/dL AST 277 H (5-37) U/L ALT 674 H (0-40) U/L Alkaline Phosphatase 73 (39-117) U/L Total Creatine Kinase 20951 H (38-174) U/L Troponin I High Sens 174.6 H* (<3.5-35.0) ng/L Total Protein 6.4 L (6.5-8.0) g/dL Albumin 3.7 (3.5-5.0) g/dL Urine Color Urine Appearance Urine pH (5.0-9.0) Ur Specific [place] (1.005-1.025) Urine Protein (Neg-Trace) mg/dL Urine Glucose (UA) (Negative) mg/dL Urine Ketones (Negative) mg/dL Urine Blood (Negative) Urine Nitrite (Negative) Ur Leukocyte Esterase (Negative) Urine RBC (0-2) /HPF Urine WBC (0-5) /HPF Ur Squamous Epith Cells (0-2) /HPF Urine Bacteria (None Seen) Hyaline Casts (0-2) /LPF Ethyl Alcohol mg/dL Influenza Type A (PCR) (Negative) Influenza Type B (PCR) (Negative) RSV RNA Qual (PCR) (Negative) SARS-CoV-2 RNA (RT-PCR) (Negative) 08/30/22 08/30/22 08/30/22 Range/Units 20:36 20:36 20:36 WBC (4.8-10.8) X10*3/uL RBC (4.60-5.80) X10*6/uL Hgb (14.0-18.0) g/dl Hct (42.0-52.0) % MCV (80.0-98.0) fL MCH (27.0-33.0) pg MCHC (31.0-36.0) g/dl RDW (11.0-16.0) % Plt Count (160-400) X10*3/uL MPV (9.4-12.4) fL Immature Gran % (Auto) (0.0-0.4) % Neut % (Auto) (45-73) % Lymph % (Auto) (20-40) % [place] % (Auto) (2-11) % Eos % (Auto) (0-4) % Baso % (Auto) (0-2) % Lymph # (Auto) (1.2-4.9) X10*3/uL [place] # (Auto) (0.1-1.2) X10*3/uL Eos # (Auto) (0.0-0.4) X10*3/uL Baso # (Auto) (0.0-0.2) X10*3/uL Abs Immat Gran (auto) (0.00-0.03) X10*3/uL Absolute Neuts (auto) (2.0-8.3) x10*3/uL Absolute Nucleated RBC (0.0-0.012) X10*3/uL Nucleated RBC % (auto) (0.0-0.2) /100WBC Smear Tech's Comments ESR 73 H (0-15) MM/HR Sodium (135-145) mmol/L Potassium (3.3-5.1) mmol/L Chloride (96-108) mmol/L Carbon Dioxide (22-29) mmol/L Anion Gap (12-20) BUN (9-16) mg/dL Creatinine (0.5-1.4) mg/dL Estim Creat Clear Calc Estimated GFR Random Glucose (60-115) mg/dL Lactic Acid 1.7 (0.5-2.0) mmol/L Calcium (8.4-10.2) mg/dL Magnesium 3.3 H (1.6-2.6) mg/dL Total Bilirubin (0.0-1.0) mg/dL AST (5-37) U/L ALT (0-40) U/L Alkaline Phosphatase (39-117) U/L Total Creatine Kinase (38-174) U/L Troponin I High Sens (<3.5-35.0) ng/L Total Protein (6.5-8.0) g/dL Albumin (3.5-5.0) g/dL Urine Color Urine Appearance Urine pH (5.0-9.0) Ur Specific [place] (1.005-1.025) Urine Protein (Neg-Trace) mg/dL Urine Glucose (UA) (Negative) mg/dL Urine Ketones (Negative) mg/dL Urine Blood (Negative) Urine Nitrite (Negative) Ur Leukocyte Esterase (Negative) Urine RBC (0-2) /HPF Urine WBC (0-5) /HPF Ur Squamous Epith Cells (0-2) /HPF Urine Bacteria (None Seen) Hyaline Casts (0-2) /LPF Ethyl Alcohol < 10 mg/dL Influenza Type A (PCR) (Negative) Influenza Type B (PCR) (Negative) RSV RNA Qual (PCR) (Negative) SARS-CoV-2 RNA (RT-PCR) (Negative) 08/30/22 08/30/22 Range/Units 20:36 22:42 WBC (4.8-10.8) X10*3/uL RBC (4.60-5.80) X10*6/uL Hgb (14.0-18.0) g/dl Hct (42.0-52.0) % MCV (80.0-98.0) fL MCH (27.0-33.0) pg MCHC (31.0-36.0) g/dl RDW (11.0-16.0) % Plt Count (160-400) X10*3/uL MPV (9.4-12.4) fL Immature Gran % (Auto) (0.0-0.4) % Neut % (Auto) (45-73) % Lymph % (Auto) (20-40) % [place] % (Auto) (2-11) % Eos % (Auto) (0-4) % Baso % (Auto) (0-2) % Lymph # (Auto) (1.2-4.9) X10*3/uL [place] # (Auto) (0.1-1.2) X10*3/uL Eos # (Auto) (0.0-0.4) X10*3/uL Baso # (Auto) (0.0-0.2) X10*3/uL Abs Immat Gran (auto) (0.00-0.03) X10*3/uL Absolute Neuts (auto) (2.0-8.3) x10*3/uL Absolute Nucleated RBC (0.0-0.012) X10*3/uL Nucleated RBC % (auto) (0.0-0.2) /100WBC Smear Tech's Comments ESR (0-15) MM/HR Sodium (135-145) mmol/L Potassium (3.3-5.1) mmol/L Chloride (96-108) mmol/L Carbon Dioxide (22-29) mmol/L Anion Gap (12-20) BUN (9-16) mg/dL Creatinine (0.5-1.4) mg/dL Estim Creat Clear Calc Estimated GFR Random Glucose (60-115) mg/dL Lactic Acid (0.5-2.0) mmol/L Calcium (8.4-10.2) mg/dL Magnesium (1.6-2.6) mg/dL Total Bilirubin (0.0-1.0) mg/dL AST (5-37) U/L ALT (0-40) U/L Alkaline Phosphatase (39-117) U/L Total Creatine Kinase (38-174) U/L Troponin I High Sens (<3.5-35.0) ng/L Total Protein (6.5-8.0) g/dL Albumin (3.5-5.0) g/dL Urine Color Dark Yellow Urine Appearance Cloudy Urine pH 5.0 (5.0-9.0) Ur Specific [place] 1.020 (1.005-1.025) Urine Protein 100 (2+) H (Neg-Trace) mg/dL Urine Glucose (UA) 500 H (Negative) mg/dL Urine Ketones Trace (Negative) mg/dL Urine Blood Large (3+) H (Negative) Urine Nitrite Negative (Negative) Ur Leukocyte Esterase Trace H (Negative) Urine RBC 11-20 H (0-2) /HPF Urine WBC 0-5 (0-5) /HPF Ur Squamous Epith Cells 0-2 (0-2) /HPF Urine Bacteria None Seen (None Seen) Hyaline Casts 0-2 (0-2) /LPF Ethyl Alcohol mg/dL Influenza Type A (PCR) NEGATIVE (Negative) Influenza Type B (PCR) NEGATIVE (Negative) RSV RNA Qual (PCR) NEGATIVE (Negative) SARS-CoV-2 RNA (RT-PCR) NEGATIVE (Negative) <Yari Brooks NP - Last Filed: 08/31/22 01:16> Independent Interpretation I performed an independent interpretation of an: EKG and CT Scan <Yari Brooks NP - Last Filed: 08/31/22 01:16> Interpretation: Normal sinus rhythm Normal ECG When compared with ECG of 08-JUL-2022 10:46, No significant change was found Vent. rate [address] interval 148 ms QRS duration 74 ms QT/QTc 338/436 ms P-R-T axes 53 53 44 30-AUG-2022 20:37:01 <Yari Brooks [employer]MENT[employer] INSTRUCTION[employer] - Last Filed: 08/31/22 01:16> Radiology Impression Discussion of test interpretation with radiology: I have reviewed the radiologist's reading. <Yari Brooks NP - Last Filed: 08/31/22 01:16> Radiologist Impression: FINDINGS: CHEST: Lungs: The central airways are patent. Mild centrilobular emphysema. No area of pleural thickening/scarring is seen in the right upper lobe along the major fissure near the apex. There is also linear scarring/atelectasis along the minor fissure in the right middle lobe anteriorly. Bibasilar atelectasis.. No pleural effusion or pneumothorax. There are no pulmonary parenchymal nodules.? Mediastinum: The heart is of normal size. There is no pericardial effusion. Central vascular structures are unremarkable. No hilar or mediastinal lymphadenopathy. ? Coronary Artery Calcification: None visualized on this study. Chest Wall/Axilla: No lymphadenopathy. No chest wall mass.? ABDOMEN/PELVIS: Liver, Gallbladder, Biliary Tree: The liver is normal in size, shape, and attenuation. No focal hepatic lesion or biliary ductal dilatation is present. The gallbladder is unremarkable with no evidence of radiopaque gallstones, gallbladder wall thickening, or pericholecystic inflammatory changes.? Pancreas: Unremarkable.? Spleen: Unremarkable.? Adrenal Glands: Unremarkable.? Kidneys and Ureters: The kidneys are normal in size, shape, and attenuation. No hydronephrosis, hydroureter or calculi seen. No perinephric stranding.? Bladder: Unremarkable.? Gastrointestinal Tract: The stomach and small bowel appear unremarkable. No dilated loops of bowel or evidence of obstruction. No diverticulosis. No colonic wall thickening or adjacent inflammatory changes. No free air or free fluid. The appendix is diminutive, without inflammation.? Abdominal Wall: No hernia is demonstrated.? Lymphovascular Structures:? Lymph nodes: Normal. Vascular: Unremarkable. Pelvic Viscera: The prostate and seminal vesicles are unremarkable.? OSSEOUS STRUCTURES: No suspicious sclerotic or lytic bone lesions are identified. Mild degenerative changes throughout the spine. CT/CT chest wo IV con IMPRESSION: 1.? No acute findings in the chest, abdomen, or pelvis. No inflammatory changes. 2.? Mild emphysema. ? <Yari Brooks NP - Last Filed: 08/31/22 01:16> Independent Historian Clinical information obtained from an independent historian. History obtained from or confirmed by: EMS <Yari Brooks NP - Last Filed: 08/31/22 01:16> External Record Review External record reviewed: Inpatient record, Outpatient record, Prior outpatient labs and Prior outpatient radiology <Yari Brooks NP - Last Filed: 08/31/22 01:16> Prescription Management I considered prescription management with: Pain Medication and Antibiotic <Yari Brooks NP - Last Filed: 08/31/22 01:16> Critical Care Time Critical Care Time Critical Care Time: Yes <Yari Brooks NP - Last Filed: 08/31/22 01:16> Total Critical Care Time: 65 <Yari Brooks NP - Last Filed: 08/31/22 01:16> Attestation: I have personally provided critical care time exclusive of time spent on separately billable procedures. Time includes review of laboratory data, radiology results, discussion with consultants, and monitoring for potential decompensation. Interventions were performed as documented. <Yari Brooks NP - Last Filed: 08/31/22 01:16> Discharge Plan Discharge Clinical Impression: Rhabdomyolysis, OLIVIA (acute kidney injury), Hyperkalemia, UTI (urinary tract infection), Discoloration of skin of toe, Mood disorder, Elevated troponin level not due to acute coronary syndrome <Johan Tavares - Last Filed: 08/30/22 17:08> Patient Disposition: Admitted As Inpatient <Johan Tavares - Last Filed: 08/30/22 17:08>
--- NOTE | 2022-08-30 19:55 | ECG_ITS ---
Test Reason : LEG PAIN Blood Pressure : / mmHG Vent. Rate : 100 BPM Atrial Rate : 100 BPM P-R Int : 148 ms QRS Dur : 074 ms QT Int : 338 ms P-R-T Axes : 053 053 044 degrees QTc Int : 436 ms Normal sinus rhythm Normal ECG When compared with ECG of 08-JUL-2022 10:46, No significant change was found Referred By: Yari Brooks Electronically Signed By:MIAN JESUS MD
[2022-08-30 20:47] LABS: Basophils Percent Auto 0.2 % (0-2); Eosinophils Percent Auto 0.2 % (0-4); Hematocrit 42.1 % (42.0-52.0); Hemoglobin 14.7 g/dl (14.0-18.0); Imm Gran Abs Auto 0.13 X10*3/uL (0.00-0.03); Imm Gran Pct Auto 0.8 % (0.0-0.4); Lymphocytes Absolute Auto 1.2 X10*3/uL (1.2-4.9); Lymphocytes Percent Auto 7.9 % (20-40); MANUAL DIFF FLAG SCAN; Mean Corpuscular HGB Conc 34.9 g/dl (31.0-36.0); Mean Corpuscular Hemoglobin 28.1 pg (27.0-33.0); Mean Corpuscular Volume 80.5 fL (80.0-98.0); Monocytes Absolute Auto 1.8 X10*3/uL (0.1-1.2); Monocytes Percent Auto 11.5 % (2-11); Neutrophils Absolute Auto 12.4 x10*3/uL (2.0-8.3); Neutrophils Percent Auto 79.4 % (45-73); Platelet Count 247 X10*3/uL (160-400); Red Blood Count 5.23 X10*6/uL (4.60-5.80); Red Cell Distribution Width 15.5 % (11.0-16.0); SCAN SMEAR FLAG 1; White Blood Count 15.6 X10*3/uL (4.8-10.8)
[2022-08-30 20:49] VITALS: BP 139/73; PULSE 98; RESP 22; TEMP 37.2; O2SAT 96
[2022-08-30 20:57] LABS: Lactic Acid 1.7 mmol/L (0.5-2.0)
[2022-08-30] MEDS: 0.9 % Sodium Chloride 1,000 ML 999 ML IVCONT ×3 (21:00→22:26)
--- NOTE | 2022-08-30 21:00 | PC.NURSE ---
patient a&ox3, iv inserted- bc obtained, labs previously drawn by donald, pt c/o 03/20 bilateral leg pain states he is unable to ambulate, ekg performed by donald, pt admits to using fentanyl 3 days ago. bladder scan 320, call davis within reach, will continue to monitor float nurse
[2022-08-30 21:02] LABS: Ethanol < 10 mg/dL; Magnesium 3.3 mg/dL (1.6-2.6)
--- NOTE | 2022-08-30 21:02 | PC.NURSE ---
pt refusing to change into hospital attier
[2022-08-30 21:16] LABS: Alanine Aminotransferase 674 U/L (0-40); Albumin Level 3.7 g/dL (3.5-5.0); Alkaline Phosphatase 73 U/L (39-117); Anion Gap 30 (12-20); Aspartate Amino Transferase 277 U/L (5-37); Bilirubin Total 0.8 mg/dL (0.0-1.0); Blood Urea Nitrogen 155 mg/dL (9-16); Calcium 7.3 mg/dL (8.4-10.2); Carbon Dioxide 15 mmol/L (22-29); Chloride 98 mmol/L (96-108); Estimated Glomerular Filt Rate 5; Glucose Random 134 mg/dL (60-115); Potassium 5.5 mmol/L (3.3-5.1); Sodium 137 mmol/L (135-145); Total Protein 6.4 g/dL (6.5-8.0)
[2022-08-30 21:17] LABS: Troponin-I High Sensitivity 174.6 ng/L (<3.5-35.0)
[2022-08-30 21:22] LABS: Influenza A PCR NEGATIVE (Negative); Influenza B PCR NEGATIVE (Negative); Resp Syncy Virus RNA Qual PCR NEGATIVE (Negative); SARS COV2 PCR INHOUSE NEGATIVE (Negative)
[2022-08-30 21:39] LABS: SLIDE REVIEW VERIFIED
[2022-08-30 21:49] LABS: Erythrocyte Sedimentation Rate 73 MM/HR (0-15)
--- NOTE | 2022-08-30 22:34 | PC.NURSE ---
Pt resting in bed, A*Ox4, GCS 15. Pt is stating pain in his lower extremities. Pt is having a hard time moving his extremities but he was able to assist in getting undressed and changed into hospital attire. IV's have been inserted bilaterally with normal saline running in both. Pt is being admitted to the hospital. Per hospitalist, I will stop fluids after bag 3 then start maintenance fluids, as documented in MAR.
[2022-08-30 22:50] LABS: Appearance Urine Cloudy; Color Urine Dark Yellow; Glucose Urine UA 500 mg/dL (Negative); Leukocyte Esterase Urine Trace (Negative); Nitrite Urine Negative (Negative); UMIC TRIGGER UACC YES; Urine Blood Large (3+) (Negative); Urine Ketones Trace mg/dL (Negative); Urine Protein 100 (2+) mg/dL (Neg-Trace)
[2022-08-30 22:57] LABS: Bacteria Urine None Seen (None Seen); Hyaline Casts Urine 0-2 /LPF (0-2); Squamous Epithelial Cell Urine 0-2 /HPF (0-2); WBC Urine 0-5 /HPF (0-5)
--- NOTE | 2022-08-30 23:45 | P.HPHOSP_ITS ---
History of Present Illness Date of Service: 08/30/22 Chief Complaint: Leg pain, weakness This is a 52-year-old homeless man who presents to the hospital after calling EMS for significant weakness. Patient reports that he has been homeless, has been sleeping [place] bridge for the past few days, and over the past 3 days has been progressively getting weaker and weaker to the point that now he cannot ambulate. He states significant weakness from the waist down all the way to his toes. He can hardly move his legs. He has significant pain in his legs bilaterally. The pain is 9/10, constant, he states that he has not been eating or drinking for the past few days because he cannot move. He denies any fever no chills, no chest pain or shortness of breath, no abdominal pain nausea or vomiting. He is having some urinary retention but states that he is able to pee, he has urgency and frequency. Denies any headache or change in vision. No numbness or tingling. On arrival to the ED patient hemodynamically stable with no significant abnormal vitals Labs are significant for WBC count of 15.6, hemoglobin of 14.7, hematocrit 42.1, ESR 73, potassium 5.5, BUN of 155, 17 in the past, creatinine of 10.3 with a baseline of 1.2, AST of 277, ALT of 674, troponin of 174, CPK of 30,514, UA positive for leukocyte Estrace, and WBC Chest CT shows no acute findings, mild emphysema Patient started on aggressive IV fluids and will be admitted for further management Review of Systems Review of Systems: Yes all other systems are reviewed and are negative [facility] Medical History Anxiety Chronic post-traumatic stress disorder (PTSD) Depression Opioid dependence on agonist therapy Suicidal ideation Social History Household Members: None Housing: Homeless Do you presently have visiting nurse or other home services: No Alcohol intake: never Patient Tobacco Use Status: Current everyday Tobacco user Tobacco use type: Cigarette Cigarette Packs Per Day: 0.5 Cigarettes Per Day: 10.0 Years Smoked: 20 Smoked in Last 30 Days: Yes e-Cigarette/Vaping Use: Never Used Second Hand Smoke Exposure: No Use of substances other than those prescribed or required for medical reasons: Yes Substance Use Type: Crack/Cocaine and Opiates Advance Directives: No Advance Directives Information Provided: No service: No Sexual orientation: Straight/Heterosexual Meds Allergies Allergy/AdvReac Type Severity Reaction Status Date / Time No Known Allergies Allergy Verified 11/07/20 02:03 [No Known Allergies*] Active Medications: Current Medications Acetaminophen (Acetaminophen 325 Mg Tablet) 650 mg PO Q6H PRN PRN Reason: Pain, Mild (Pain Scale 1-3) Heparin Sodium (Porcine) (Heparin Sodium,Porcine 5,000 Unit/Ml Vial) 5,000 unit SUBCUT Q12H [facility] Lactated Ringer's (Lr) 1,000 mls @ 250 mls/hr IVCONT .Q4H [place] Vancomycin HCl (Vancomycin/Ns) 2,000 mg in 520 mls @ 260 mls/hr IV ONCE ONE Stop: 08/31/22 01:39 Ceftriaxone Sodium 1 gm/ (Sodium Chloride) 50 mls @ 100 mls/hr IV ONCE ONE Stop: 08/31/22 00:09 Morphine Sulfate (Morphine Sulfate 4 Mg/Ml Cartridge) 4 mg IVPUSH Q4H PRN; Protocol PRN Reason: Pain, Severe (Pain Scale 7-10) Ondansetron HCl (Ondansetron Hcl 4 Mg/2 Ml Vial) 4 mg IVPUSH Q8H PRN PRN Reason: Nausea and Vomiting Pharmacy Consult (Consult Rx Vancomycin Dosing) 1 each MISCELLANE DAILY PRN PRN Reason: Consult order Sodium Chloride (0.9 % Sodium Chloride Flush 3 Ml Syringe) 3 ml IVFLUSH [facility] Home Medications Medication Instructions Recorded Confirmed Last Taken Type ibuprofen 200 mg tablet 200 mg PO DAILY PRN Pain 07/21/22 07/21/22 07/20/22 History sertraline 100 mg tablet 100 mg PO DAILY 07/21/22 07/21/22 07/20/22 History Physical Exam Vital Signs and Narrative: Vital Signs: Last Vital Signs Temp 98.9 F 08/30/22 20:49 Pulse 98 08/30/22 20:49 Resp 22 H 08/30/22 20:49 BP 139/73 08/30/22 20:49 Pulse Ox 96 08/30/22 20:49 O2 Del Method 08/30/22 20:49 BMI result Body Mass Index 32.5 Const: Other: ill appearing General: cooperative and no acute distress Or ientation/consciousness: patient oriented x3 Eyes: General: appearance normal, both eyes and all related structures Resp: Effort & Inspection: normal respiratory effort Auscultation: clear to auscultation bilaterally Cardio: Rate: regular rate Rhythm: regular rhythm GI: Palpation (GI): Soft to palpation Auscultation: normal bowel sounds Skin: General skin exam: no rashes or lesions noted Neuro: General: patient oriented x3 Cognition (Neuro): normal cognition Extrem: Other: Has tenderness and muscle exam of lower extremities. Also has swelling in his feet bilaterally, has discoloration of the toes bilaterally. Results Labs 08/30/22 20:36 08/30/22 20:36 Labs: Laboratory Results - last 24 hr 08/30/22 08/30/22 08/30/22 20:36 20:36 20:36 MCV 80.5 MCH 28.1 MCHC 34.9 RDW 15.5 Plt Count 247 MPV 10.0 Immature Gran % (Auto) 0.8 H Neut % (Auto) 79.4 H Lymph % (Auto) 7.9 L [place] % (Auto) 11.5 H Eos % (Auto) 0.2 Baso % (Auto) 0.2 Lymph # (Auto) 1.2 [place] # (Auto) 1.8 H Eos # (Auto) 0.0 Baso # (Auto) 0.0 Abs Immat Gran (auto) 0.13 H Absolute Neuts (auto) 12.4 H Absolute Nucleated RBC 0.000 Nucleated RBC % (auto) 0.0 Smear Tech's Comments VERIFIED ESR Anion Gap 30 H Estim Creat Clear Calc 10.0 Estimated GFR 5 Random Glucose 134 H Lactic Acid Calcium 7.3 L D Magnesium Total Bilirubin 0.8 AST 277 H ALT 674 H Alkaline Phosphatase 73 Total Creatine Kinase 02766 H Troponin I High Sens 174.6 H* Total Protein 6.4 L Albumin 3.7 Urine Color Urine Appearance Urine pH Ur Specific [place] Urine Protein Urine Glucose (UA) Urine Ketones Urine Blood Urine Nitrite Ur Leukocyte Esterase Urine RBC Urine WBC Ur Squamous Epith Cells Urine Bacteria Hyaline Casts Ethyl Alcohol Influenza Type A (PCR) Influenza Type B (PCR) RSV RNA Qual (PCR) SARS-CoV-2 RNA (RT-PCR) 08/30/22 08/30/22 08/30/22 20:36 20:36 20:36 MCV MCH MCHC RDW Plt Count MPV Immature Gran % (Auto) Neut % (Auto) Lymph % (Auto) [place] % (Auto) Eos % (Auto) Baso % (Auto) Lymph # (Auto) [place] # (Auto) Eos # (Auto) Baso # (Auto) Abs Immat Gran (auto) Absolute Neuts (auto) Absolute Nucleated RBC Nucleated RBC % (auto) Smear Tech's Comments ESR 73 H Anion Gap Estim Creat Clear Calc Estimated GFR Random Glucose Lactic Acid 1.7 Calcium Magnesium 3.3 H Total Bilirubin AST ALT Alkaline Phosphatase Total Creatine Kinase Troponin I High Sens Total Protein Albumin Urine Color Urine Appearance Urine pH Ur Specific [place] Urine Protein Urine Glucose (UA) Urine Ketones Urine Blood Urine Nitrite Ur Leukocyte Esterase Urine RBC Urine WBC Ur Squamous Epith Cells Urine Bacteria Hyaline Casts Ethyl Alcohol < 10 Influenza Type A (PCR) Influenza Type B (PCR) RSV RNA Qual (PCR) SARS-CoV-2 RNA (RT-PCR) 08/30/22 08/30/22 20:36 22:42 MCV MCH MCHC RDW Plt Count MPV Immature Gran % (Auto) Neut % (Auto) Lymph % (Auto) [place] % (Auto) Eos % (Auto) Baso % (Auto) Lymph # (Auto) [place] # (Auto) Eos # (Auto) Baso # (Auto) Abs Immat Gran (auto) Absolute Neuts (auto) Absolute Nucleated RBC Nucleated RBC % (auto) Smear Tech's Comments ESR Anion Gap Estim Creat Clear Calc Estimated GFR Random Glucose Lactic Acid Calcium Magnesium Total Bilirubin AST ALT Alkaline Phosphatase Total Creatine Kinase Troponin I High Sens Total Protein Albumin Urine Color Dark Yellow Urine Appearance Cloudy Urine pH 5.0 Ur Specific [place] 1.020 Urine Protein 100 (2+) H Urine Glucose (UA) 500 H Urine Ketones Trace Urine Blood Large (3+) H Urine Nitrite Negative Ur Leukocyte Esterase Trace H Urine RBC 11-20 H Urine WBC 0-5 Ur Squamous Epith Cells 0-2 Urine Bacteria None Seen Hyaline Casts 0-2 Ethyl Alcohol Influenza Type A (PCR) NEGATIVE Influenza Type B (PCR) NEGATIVE RSV RNA Qual (PCR) NEGATIVE SARS-CoV-2 RNA (RT-PCR) NEGATIVE Imaging Radiologist's Impressions: Impressions Abdomen/Pelvis CT 08/30/22 21:45 IMPRESSION: 1. No acute findings in the chest, abdomen, or pelvis. No inflammatory changes. 2. Mild emphysema. Chest CT 08/30/22 21:45 IMPRESSION: 1. No acute findings in the chest, abdomen, or pelvis. No inflammatory changes. 2. Mild emphysema. Assessment and Plan (1) Rhabdomyolysis: Status: Acute (2) OLIVIA (acute kidney injury): Status: Acute (3) Hyperkalemia: Status: Acute (4) UTI (urinary tract infection): Status: Acute (5) Discoloration of skin of toe: Status: Acute Plan This is a 52-year-old male with past medical history of anxiety depression, opioid dependence, PTSD and anxiety presents to the hospital with complaints of lower extremity weakness after being immobile for 3 days. # Aute Kidney injury - likely secondary to rhabdomyolysis - has elevated BUN, OLIVIA of 10 with a baseline of 1.2 - patient started on aggressive IV fluids - will consult Nephrology - follow BMP closely # rhabdomyolysis - likely secondary to immobility - denies any injury or trauma - states that he has been homeless and has been sleeping in the outdoors - CPK in the [id number] - will treat with aggressive IV fluids - follow CPK level # UTI - has urinary urgency and frequency, with positive UA - will treat with IV antibiotics - follow cultures # discoloration of skin of toe - possibly secondary to frostbite - will obtain venous and arterial duplex DVT prophylaxis: Lovenox Given patient's need for IV fluids, severe OLIVIA, and rhabdo patient will require minimum 2 nights inpatient hospital stay for further management and monitoring Time Spent With Patient Time: Total time managing care of this patient today ____ minutes. Quality Stroke Does the patient have a stroke diagnosis?: No VTE Prior VTE?: No VTE Risk Level:: Medical - moderate - high VTE Device Contraindication: Treatment Not Indicated VTE Drug Contraindication: N/A - Med Ordered
[2022-08-30] MEDS: Lactated Ringers 1,000 ML 250 ML IVCONT (23:57)
[2022-08-30] MEDS: cefTRIAXone sodium 1 GM in 0.9 % Sodium Chloride 50 ML IV (23:58)
[2022-08-30] MEDS: Morphine Sulfate 4 MG/ML CARTRIDGE IVPUSH (23:58)
[2022-08-30] MEDS: ondansetron HCL 4 MG/2 ML VIAL IVPUSH (23:58)
[2022-08-30] MEDS: 0.9 % Sodium Chloride Flush 3 ML SYRINGE IVFLUSH (23:58)
[2022-08-31] VITALS (9 sets, daily range): BP systolic 117–137; BP diastolic 64–80; PULSE 85–102; RESP 15–20; TEMP 36.2–36.8; O2SAT 91–97
[2022-08-31 01:10] LABS: Troponin-I High Sensitivity 154.6 ng/L (<3.5-35.0)
[2022-08-31] MEDS: Heparin Sodium,Porcine 5,000 UNIT/ML VIAL 5000 UNIT SUBCUT ×3 (01:44→21:16)
--- NOTE | 2022-08-31 01:45 | PC.NURSE ---
Pt resting in bed, still complaining of 10/10 pain bilaterally in the legs. Pt noted to have discoloration on his toes, presenting purple. CSM and Doppler pulses are in tact. Provider aware.
[2022-08-31] MEDS: Lactated Ringers 1,000 ML 250 ML IVCONT (04:00)
--- NOTE | 2022-08-31 06:52 | MHC.EDTECH ---
Pt repositoned to his right side from his left side. Pt given warm blanket and call belll in reach
--- NOTE | 2022-08-31 07:53 | PHA.MEDREC ---
Pharmacy Consult ? Medication Reconciliation Pharmacy has completed the medication reconciliation. Patient able to name most of his medications without being lead, clarified that he only takes his Wellbutrin once daily, and takes clonazepam regularly and not as needed. States it has been a few days since his last doses
--- NOTE | 2022-08-31 08:06 | PM.CNGS ---
History of Present Illness Consult details Consult date: 08/31/22 Requesting physician: Virginie Porter Narrative: 52-year-old male patient presenting to the emergency department with leg weakness. He reports being homeless and sleeping under bridge for the past several days developing increased weakness with difficulty walking. He presented to the emergency department for further evaluation was noted to have bluish discoloration of the bilateral lower extremities left greater than right. He denies significant pain in the foot currently but does report pain with pressure. He reports being unable to move his foot or toes. Workup in the emergency department revealed an elevated WBC of 15.6, creatinine of 10.3 CPK of 30,514, lactate 1.7. Surgical consultation was requested for management what appears to be bilateral lower extremity frostbite. He is admitted for aggressive IV fluid hydration for probable rhabdomyolysis. Review of Systems Review of Systems: Yes all other systems are reviewed and are negative Constitutional: Constitutional: Denies chills, Denies fever(s), Denies headache(s), Reports poor appetite and Reports weakness ENT: Denies headache(s) Cardiovascular: Cardiovascular: Denies chest pain, Denies irregular heart rhythm, Denies palpitations and Reports dyspnea Respiratory: Respiratory: Denies cough, Denies excessive phlegm production and Reports dyspnea Gastrointestinal: Gastrointestinal: Denies abdominal pain, Denies bloating, Denies change in bowel habits, Denies constipation, Denies heartburn, Denies diarrhea, Denies nausea and Denies vomiting Genitourinary: Genitourinary: Denies difficulty urinating and Denies urinary frequency Musculoskeletal: Musculoskeletal: Denies back pain, Reports muscle weakness and Reports numbness Integumentary/Breasts: Skin/Breast: Reports as per HPI, Denies changing lesions, Reports skin swelling and Reports unusual bruising Neurologic: Denies headache(s), Reports numbness, Denies paresthesias and Reports weakness Psychiatric: Psychiatric: Denies anxiety and Denies depression Endocrine: Endocrine: Denies palpitations Hematologic/Lymphatic: Hematologic/Lymphatic: Denies lymphadenopathy PMFSH Past Medical History Medical History Anxiety Chronic post-traumatic stress disorder (PTSD) Depression Opioid dependence on agonist therapy Suicidal ideation Social History Social History Household Members: None Housing: Homeless Do you presently have visiting nurse or other home services: No Alcohol intake: never Patient Tobacco Use Status: Former Tobacco user Quit Date: 11/07/20 Tobacco use type: Cigarette Cigarette Packs Per Day: 0.5 Cigarettes Per Day: 10.0 Years Smoked: 20 Smoked in Last 30 Days: Yes e-Cigarette/Vaping Use: Never Used Second Hand Smoke Exposure: No Use of substances other than those prescribed or required for medical reasons: Yes Substance Use Type: Crack/Cocaine and Opiates Advance Directives: No Advance Directives Information Provided: No service: No Sexual orientation: Straight/Heterosexual Meds Allergies Allergy/AdvReac Type Severity Reaction Status Date / Time No Known Allergies Allergy Verified 11/07/20 02:03 [No Known Allergies*] Active Medications: Current Medications Acetaminophen (Acetaminophen 325 Mg Tablet) 650 mg PO Q6H PRN PRN Reason: Pain, Mild (Pain Scale 1-3) Heparin Sodium (Porcine) (Heparin Sodium,Porcine 5,000 Unit/Ml Vial) 5,000 unit SUBCUT BID [facility] Last Admin: 08/31/22 08:05 Dose: 5,000 unit Lactated Ringer's (Lr) 1,000 mls @ 250 mls/hr IVCONT .Q4H [facility] Last Admin: 08/31/22 07:42 Dose: Not Given Morphine Sulfate (Morphine Sulfate 4 Mg/Ml Cartridge) 4 mg IVPUSH Q4H PRN; Protocol PRN Reason: Pain, Severe (Pain Scale 7-10) Ondansetron HCl (Ondansetron Hcl 4 Mg/2 Ml Vial) 4 mg IVPUSH Q8H PRN PRN Reason: Nausea and Vomiting Pharmacy Consult (Consult Rx Vancomycin Dosing) 1 each MISCELLANE DAILY PRN PRN Reason: Consult order Sodium Chloride (0.9 % Sodium Chloride Flush 3 Ml Syringe) 3 ml IVFLUSH QSHIFT [facility] Last Admin: 08/31/22 07:38 Dose: Not Given Home Medications Medication Instructions Recorded Confirmed Last Taken Type bupropion HCl 150 mg tablet,12 hr 150 mg PO DAILY 08/31/22 08/31/22 Unknown History sustained-release clonazepam 1 mg tablet 1 mg PO BID 08/31/22 08/31/22 Unknown History hydroxyzine pamoate 50 mg capsule 50 mg PO BID PRN Anxiety 08/31/22 08/31/22 Unknown History mirtazapine 30 mg tablet 30 mg PO BEDTIME 08/31/22 08/31/22 Unknown History olanzapine 20 mg tablet 20 mg PO BEDTIME 08/31/22 08/31/22 Unknown History sertraline 100 mg tablet 150 mg PO DAILY 08/31/22 08/31/22 Unknown History trazodone 50 mg tablet 100 mg PO BEDTIME 08/31/22 08/31/22 Unknown History Physical Exam Vital Signs: Vital Signs: Last Vital Signs Temp 98.1 F 08/31/22 06:51 Pulse 102 H 08/31/22 06:51 Resp 19 08/31/22 06:51 BP 117/70 08/31/22 06:51 Pulse Ox 92 08/31/22 06:51 O2 Del Method Room Air 08/31/22 06:51 BMI result Body Mass Index 32.5 Const: General: cooperative and no acute distress Nutritional Appearance: well nourished Orientation/consciousness: patient oriented x3 Limitations: no limitations HEENT: Head: Yes normocephalic and Yes atraumatic Ears: hearing grossly normal bilaterally Resp: Effort & Inspection: normal respiratory effort, no audible wheezes, no cough and no respiratory distress Cardio: Jugular venous distension: no JVD GI: Inspection: Yes normal to inspection Skin: Other: Warm, dry, no rash General skin exam: mottling and purpura Neuro: General: patient oriented x3 Extrem: Other: Bluish discoloration of his left lower extremity from just above the ankle down to toes suggestive of frostbite, also noted to the right foot mainly in the toes to a lesser degree. No tenderness to palpation. Patient unable to flex or extend toes. No capillary refill noted. No necrotic changes appreciated at this time. Results Labs 08/30/22 20:36 08/30/22 20:36 Labs: Abnormal lab results 08/30/22 08/30/22 08/30/22 Range/Units 20:36 20:36 20:36 WBC 15.6 H (4.8-10.8) X10*3/uL Immature Gran % (Auto) 0.8 H (0.0-0.4) % Neut % (Auto) 79.4 H (45-73) % Lymph % (Auto) 7.9 L (20-40) % [place] % (Auto) 11.5 H (2-11) % [place] # (Auto) 1.8 H (0.1-1.2) X10*3/uL Abs Immat Gran (auto) 0.13 H (0.00-0.03) X10*3/uL Absolute Neuts (auto) 12.4 H (2.0-8.3) x10*3/uL ESR (0-15) MM/HR Potassium 5.5 H D (3.3-5.1) mmol/L Carbon Dioxide 15 L (22-29) mmol/L Anion Gap 30 H (12-20) BUN 155 H (9-16) mg/dL Creatinine 10.03 H* (0.5-1.4) mg/dL Random Glucose 134 H (60-115) mg/dL Calcium 7.3 L D (8.4-10.2) mg/dL Magnesium (1.6-2.6) mg/dL AST 277 H (5-37) U/L ALT 674 H (0-40) U/L Total Creatine Kinase 56102 H (38-174) U/L Troponin I High Sens 174.6 H* (<3.5-35.0) ng/L Total Protein 6.4 L (6.5-8.0) g/dL Urine Protein (Neg-Trace) mg/dL Urine Glucose (UA) (Negative) mg/dL Urine Blood (Negative) Ur Leukocyte Esterase (Negative) Urine RBC (0-2) /HPF 08/30/22 08/30/22 08/30/22 Range/Units 20:36 20:36 22:42 WBC (4.8-10.8) X10*3/uL Immature Gran % (Auto) (0.0-0.4) % Neut % (Auto) (45-73) % Lymph % (Auto) (20-40) % [place] % (Auto) (2-11) % [place] # (Auto) (0.1-1.2) X10*3/uL Abs Immat Gran (auto) (0.00-0.03) X10*3/uL Absolute Neuts (auto) (2.0-8.3) x10*3/uL ESR 73 H (0-15) MM/HR Potassium (3.3-5.1) mmol/L Carbon Dioxide (22-29) mmol/L Anion Gap (12-20) BUN (9-16) mg/dL Creatinine (0.5-1.4) mg/dL Random Glucose (60-115) mg/dL Calcium (8.4-10.2) mg/dL Magnesium 3.3 H (1.6-2.6) mg/dL AST (5-37) U/L ALT (0-40) U/L Total Creatine Kinase (38-174) U/L Troponin I High Sens (<3.5-35.0) ng/L Total Protein (6.5-8.0) g/dL Urine Protein 100 (2+) H (Neg-Trace) mg/dL Urine Glucose (UA) 500 H (Negative) mg/dL Urine Blood Large (3+) H (Negative) Ur Leukocyte Esterase Trace H (Negative) Urine RBC 11-20 H (0-2) /HPF // Range/Units 00:39 WBC (4.8-10.8) X10*3/uL Immature Gran % (Auto) (0.0-0.4) % Neut % (Auto) (45-73) % Lymph % (Auto) (20-40) % [place] % (Auto) (2-11) % [place] # (Auto) (0.1-1.2) X10*3/uL Abs Immat Gran (auto) (0.00-0.03) X10*3/uL Absolute Neuts (auto) (2.0-8.3) x10*3/uL ESR (0-15) MM/HR Potassium (3.3-5.1) mmol/L Carbon Dioxide (22-29) mmol/L Anion Gap (12-20) BUN (9-16) mg/dL Creatinine (0.5-1.4) mg/dL Random Glucose (60-115) mg/dL Calcium (8.4-10.2) mg/dL Magnesium (1.6-2.6) mg/dL AST (5-37) U/L ALT (0-40) U/L Total Creatine Kinase (38-174) U/L Troponin I High Sens 154.6 H* (<3.5-35.0) ng/L Total Protein (6.5-8.0) g/dL Urine Protein (Neg-Trace) mg/dL Urine Glucose (UA) (Negative) mg/dL Urine Blood (Negative) Ur Leukocyte Esterase (Negative) Urine RBC (0-2) /HPF Short CBC 08/30/22 Range/Units 20:36 WBC 15.6 H (4.8-10.8) X10*3/uL Hgb 14.7 (14.0-18.0) g/dl Hct 42.1 (42.0-52.0) % Plt Count 247 (160-400) X10*3/uL BMP 08/30/22 20:36 Sodium 137 Potassium 5.5 H D Chloride 98 Carbon Dioxide 15 L BUN 155 H Creatinine 10.03 H* Calcium 7.3 L D Cardiac Enzymes 08/30/22 Range/Units 20:36 Total Creatine Kinase 08577 H (38-174) U/L Liver Function 08/30/22 Range/Units 20:36 Total Bilirubin 0.8 (0.0-1.0) mg/dL AST 277 H (5-37) U/L ALT 674 H (0-40) U/L Alkaline Phosphatase 73 (39-117) U/L Albumin 3.7 (3.5-5.0) g/dL Urine 08/30/22 Range/Units 22:42 Urine Color Dark Yellow Urine Appearance Cloudy Urine pH 5.0 (5.0-9.0) Ur Specific [place] 1.020 (1.005-1.025) Urine Protein 100 (2+) H (Neg-Trace) mg/dL Urine Glucose (UA) 500 H (Negative) mg/dL All other labs normal. Assessment and Plan (1) Frostbite: Status: Acute (2) Rhabdomyolysis: Status: Acute (3) OLIVIA (acute kidney injury): Status: Acute (4) Discoloration of skin of toe: Status: Acute Plan Unfortunate 52-year-old male, homeless and sleeping [place] bridge developing lower extremity weakness found to have bluish discoloration of the lower extremities suggestive of frostbite. Examination does reveal bluish discoloration left greater than right suggestive of frostbite injury. Recommend rewarming lower extremities and observation. Discoloration may improved with rewarming and would not barboza to perform any amputation until level of gangrene, if any, declares itself. Will monitor patient's progress during hospitalization. Time Spent With Patient Time: Total time managing care of this patient today ____ minutes. Procedures Date of Service Date of Service: 08/31/22
--- NOTE | 2022-08-31 08:06 | PC.NURSE ---
report given to abdiel causey on [facility]. abida contacted for transport
[2022-08-31 08:20] LABS: Alanine Aminotransferase 434 U/L (0-40); Albumin Level 2.8 g/dL (3.5-5.0); Alkaline Phosphatase 58 U/L (39-117); Anion Gap 22 (12-20); Aspartate Amino Transferase 207 U/L (5-37); Bilirubin Total 0.6 mg/dL (0.0-1.0); Blood Urea Nitrogen 147 mg/dL (9-16); Calcium 6.1 mg/dL (8.4-10.2); Carbon Dioxide 14 mmol/L (22-29); Chloride 107 mmol/L (96-108); Creatinine Clr Calc Pharmacy 10.5; Estimated Glomerular Filt Rate 6; Glucose Random 138 mg/dL (60-115); Potassium 5.4 mmol/L (3.3-5.1); Sodium 138 mmol/L (135-145); Total Protein 4.9 g/dL (6.5-8.0)
[2022-08-31] MEDS: Morphine Sulfate 4 MG/ML CARTRIDGE IVPUSH ×3 (09:07→21:16)
[2022-08-31] MEDS: Sertraline HCL 50 MG TABLET 150 MG PO (09:07)
[2022-08-31] MEDS: clonazePAM 1 MG TABLET PO ×2 (09:07→21:17)
[2022-08-31] MEDS: Sodium Zirconium Cyclosilicate 10 GM POWD.PACK PO (09:54)
--- NOTE | 2022-08-31 10:13 | P.CONNP_ITS ---
History of Present Illness Reason for Consult Consult date: 08/31/22 Reason for consult: OLIVIA Chief Complaint Chief complaint: RHabdo, severe olivia History of Present Illness Narrative: 52-year-old homeless man who presents to the hospital after calling EMS for significant weakness.? Patient reports that he has been homeless, has been sleeping [place] a bridge for the past few days, and over the past 3 days has been progressively getting weaker and weaker to the point that now he cannot ambulate.? He states significant weakness from the waist down all the way to his toes.? He can hardly move his legs.? He has significant pain in his legs bilaterally.? The pain is 9/10, constant, he states that he has not been eating or drinking for the past few days because he cannot move.? He denies any fever no chills, no chest pain or shortness of breath, no abdominal pain nausea or vomiting.? He is having some urinary retention but states that he is able to pee, he has urgency and frequency.? Denies any headache or change in vision.? No numbness or tingling.? Review of Systems Constitutional: Denies chills and Denies headache(s) Eyes: Denies dry eyes Denies dizziness, Denies dry mouth and Denies headache(s) Cardiovascular: Denies chest pain, Denies leg edema and Denies dyspnea on exertion Respiratory: Denies cough and Denies dyspnea on exertion Gastrointestinal: Denies bloating, Denies diarrhea and Denies vomiting Genitourinary: Denies hematuria and Denies urinary incontinence Musculoskeletal: Denies tingling Denies confusion, Denies dizziness, Denies headache(s), Denies focal weakness and Denies tingling Psychiatric: Denies confusion PMFSH Past Medical History Medical History Anxiety Chronic post-traumatic stress disorder (PTSD) Depression Opioid dependence on agonist therapy Suicidal ideation Social History Social History Household Members: None Housing: Homeless Do you presently have visiting nurse or other home services: No Alcohol intake: never Patient Tobacco Use Status: Former Tobacco user Quit Date: 11/07/20 Tobacco use type: Cigarette Cigarette Packs Per Day: 0.5 Cigarettes Per Day: 10.0 Years Smoked: 20 e-Cigarette/Vaping Use: Never Used Second Hand Smoke Exposure: No Substance Use Type: Crack/Cocaine and Opiates service: No Sexual orientation: Straight/Heterosexual Meds Allergies Allergy/AdvReac Type Severity Reaction Status Date / Time No Known Allergies Allergy Verified 11/07/20 02:03 [No Known Allergies*] Active Medications: Current Medications Acetaminophen (Acetaminophen 325 Mg Tablet) 650 mg PO Q6H PRN PRN Reason: Pain, Mild (Pain Scale 1-3) Bupropion HCl (Bupropion Hcl 100 Mg Tablet) 150 mg PO Q72H [facility] Clonazepam (Clonazepam 1 Mg Tablet) 1 mg PO BID [facility] Last Admin: 08/31/22 09:07 Dose: 1 mg Heparin Sodium (Porcine) (Heparin Sodium,Porcine 5,000 Unit/Ml Vial) 5,000 unit SUBCUT BID [facility] Last Admin: 08/31/22 08:05 Dose: 5,000 unit Hydroxyzine HCl (Hydroxyzine Hcl 50 Mg Tablet) 50 mg PO BID PRN PRN Reason: Anxiety Sodium Bicarbonate 150 meq/ (Dextrose) 1,000 mls @ 100 mls/hr IV .Q10H [facility] Mirtazapine (Mirtazapine 30 Mg Tablet) 30 mg PO BEDTIME [facility] Morphine Sulfate (Morphine Sulfate 4 Mg/Ml Cartridge) 4 mg IVPUSH Q4H PRN; Protocol PRN Reason: Pain, Severe (Pain Scale 7-10) Last Admin: 08/31/22 09:07 Dose: 4 mg Olanzapine (Olanzapine 10 Mg Tablet) 20 mg PO BEDTIME [facility] Ondansetron HCl (Ondansetron Hcl 4 Mg/2 Ml Vial) 4 mg IVPUSH Q8H PRN PRN Reason: Nausea and Vomiting Sertraline HCl (Sertraline Hcl 50 Mg Tablet) 150 mg PO DAILY [facility] Last Admin: 08/31/22 09:07 Dose: 150 mg Sodium Chloride (0.9 % Sodium Chloride Flush 3 Ml Syringe) 3 ml IVFLUSH QSHIFT [facility] Last Admin: 08/31/22 07:38 Dose: Not Given Trazodone HCl (Trazodone Hcl 100 Mg Tablet) 100 mg PO BEDTIME [facility] Home Medications Medication Instructions Recorded Confirmed Last Taken Type bupropion HCl 150 mg tablet,12 hr 150 mg PO DAILY 08/31/22 08/31/22 Unknown History sustained-release clonazepam 1 mg tablet 1 mg PO BID 08/31/22 08/31/22 Unknown History hydroxyzine pamoate 50 mg capsule 50 mg PO BID PRN Anxiety 08/31/22 08/31/22 Unknown History mirtazapine 30 mg tablet 30 mg PO BEDTIME 08/31/22 08/31/22 Unknown History olanzapine 20 mg tablet 20 mg PO BEDTIME 08/31/22 08/31/22 Unknown History sertraline 100 mg tablet 150 mg PO DAILY 08/31/22 08/31/22 Unknown History trazodone 50 mg tablet 100 mg PO BEDTIME 08/31/22 08/31/22 Unknown History Physical Exam Vital Signs: Last Vital Signs Temp 98.3 F 08/31/22 08:41 Pulse 101 H 08/31/22 08:41 Resp 17 08/31/22 08:41 BP 119/64 08/31/22 08:41 Pulse Ox 97 08/31/22 08:41 O2 Del Method Room Air 08/31/22 08:41 BMI result Body Mass Index 32.5 ill appearing? General: cooperative and no acute distress? Orientation/consciousness: patient oriented x3 Eyes:?? General: appearance normal, both eyes and all related structures Resp:?? Effort & Inspection: normal respiratory effort? Auscultation: clear to auscultation bilaterally Cardio:?? Rate: regular rate? Rhythm: regular rhythm GI:?? Palpation (GI): Soft to palpation? Auscultation: normal bowel sounds Skin:?? General skin exam: no rashes or lesions noted Neuro:?? General: patient oriented x3? Cognition (Neuro): normal cognition Extrem:?? Other: Has tenderness and muscle exam of lower extremities.? Also has swelling in his feet bilaterally, has discoloration of the toes bilaterally. Const General: No confusion Orientation/consciousness: No confusion Neuro General: No confusion Results Lab Results 08/30/22 20:36 08/31/22 07:11 Lab results: Chemistry 08/30/22 08/31/22 20:36 07:11 Sodium 137 138 Potassium 5.5 H D 5.4 H Carbon Dioxide 15 L 14 L BUN 155 H 147 H Creatinine 10.03 H* 9.57 H* Calcium 7.3 L D 6.1 L D Hematology 08/30/22 20:36 WBC 15.6 H Hgb 14.7 Plt Count 247 Urinalysis 08/30/22 22:42 Urine Color Dark Yellow Urine Appearance Cloudy Urine pH 5.0 Ur Specific [place] 1.020 Urine Protein 100 (2+) H Urine Glucose (UA) 500 H Urine Ketones Trace Urine Blood Large (3+) H Urine Nitrite Negative Ur Leukocyte Esterase Trace H Urine RBC 11-20 H Urine WBC 0-5 Ur Squamous Epith Cells 0-2 Hyaline Casts 0-2 Assessment and Plan (1) Hyperkalemia: Status: Acute (2) OLIVIA (acute kidney injury): Status: Acute (3) Rhabdomyolysis: Status: Acute Plan 52-year-old man admitted with rhabdomyolysis leading to acute kidney injury and hyperkalemia. Recommendations Check urine for sodium, creatinine, protein. IV hydration. Discontinue Ringer's lactate. Start D5W with 150 mEq of sodium bicarbonate at 100 cc/hour. Keep intake more than output. Watch urine output and inadequate he may need a Cuevas catheter. Lokelma 10 g p.o. x1 dose. Follow CPK levels. Today there is no absolute indication for dialysis. However if the hyperkalemia is resistant to medical management or if he remains oliguric he would require renal replacement therapy. Closely monitor calcium, phosphorus, potassium. We will follow him closely with the team. Thank you Time Spent With Patient Time: Total time managing care of this patient today ____ minutes. Procedures Date of Service Date of Service: 08/31/22
--- NOTE | 2022-08-31 10:37 | MHC.CM.PN ---
CM has attempted to meet with Patient x3. On final attempt, Patient was not able to keep his eyes open to have a conversation. Per ROUNDS discussion, Patient is homeless and has [place] for the past few days. It appears that Patient would benefit from a Recovery Team and PT consult to assist with disposition. CM will follow. Patient received Covid/J&J Vax and he does not appear to have a PCP.
[2022-08-31] MEDS: Sodium Bicarbonate 8.4% 150 MEQ in Dextrose 5 % 850 ML 100 MEQ IV ×2 (10:59→21:16)
--- NOTE | 2022-08-31 11:26 | P.PNIM_ITS ---
Subjective Subjective Date of Service: 08/31/22 Interval History: c/o foot pain + swelling no fever Review of Systems Review of Systems: Yes all other systems are reviewed and are negative Physical Exam Vital Signs: Vital Signs: Last Vital Signs Temp 98.3 F 08/31/22 08:41 Pulse 101 H 08/31/22 08:41 Resp 17 08/31/22 08:41 BP 119/64 08/31/22 08:41 Pulse Ox 97 08/31/22 08:41 O2 Del Method Room Air 08/31/22 08:41 BMI result Body Mass Index 32.5 Gen: ill-appearing, disheveled HEENT: sclera anicteric, moist mucus membranes Neck: supple Lungs: clear to auscultation bilaterally Heart: regular rate and rhythm, no murmurs Abd: soft, non-tender, non-distended Ext: 1+ BLE + BUE edema Skin: discoloration of distal aspect of toes bilaterally Neuro: alert and oriented x3, no focal findings Psych: appropriate affect Objective Data Active Medications Acetaminophen (Acetaminophen 325 Mg Tablet) 650 mg PO Q6H PRN PRN Reason: Pain, Mild (Pain Scale 1-3) Bupropion HCl (Bupropion Hcl 100 Mg Tablet) 150 mg PO Q72H [facility] Clonazepam (Clonazepam 1 Mg Tablet) 1 mg PO BID [facility] Last Admin: 08/31/22 09:07 Dose: 1 mg Documented By: LUIS Heparin Sodium (Porcine) (Heparin Sodium,Porcine 5,000 Unit/Ml Vial) 5,000 unit SUBCUT BID [facility] Last Admin: 08/31/22 08:05 Dose: 5,000 unit Documented By: JAMAL Hydroxyzine HCl (Hydroxyzine Hcl 50 Mg Tablet) 50 mg PO BID PRN PRN Reason: Anxiety Sodium Bicarbonate 150 meq/ (Dextrose) 1,000 mls @ 100 mls/hr IV .Q10H [facility] Last Admin: 08/31/22 10:59 Dose: 100 mls/hr Documented By: LUIS Mirtazapine (Mirtazapine 30 Mg Tablet) 30 mg PO BEDTIME [facility] Morphine Sulfate (Morphine Sulfate 4 Mg/Ml Cartridge) 4 mg IVPUSH Q4H PRN; Protocol PRN Reason: Pain, Severe (Pain Scale 7-10) Last Admin: 08/31/22 09:07 Dose: 4 mg Documented By: LUIS Olanzapine (Olanzapine 10 Mg Tablet) 20 mg PO BEDTIME [facility] Ondansetron HCl (Ondansetron Hcl 4 Mg/2 Ml Vial) 4 mg IVPUSH Q8H PRN PRN Reason: Nausea and Vomiting Sertraline HCl (Sertraline Hcl 50 Mg Tablet) 150 mg PO DAILY [facility] Last Admin: 08/31/22 09:07 Dose: 150 mg Documented By: LUIS Sodium Chloride (0.9 % Sodium Chloride Flush 3 Ml Syringe) 3 ml IVFLUSH QSHIFT [facility] Last Admin: 08/31/22 07:38 Dose: Not Given Documented By: JAMAL Non-Admin Reason: IV Running Trazodone HCl (Trazodone Hcl 100 Mg Tablet) 100 mg PO BEDTIME [facility] Labs 08/30/22 20:36 08/31/22 07:11 Labs: Laboratory Results - last 24 hr 08/30/22 08/30/22 08/30/22 20:36 20:36 20:36 MCV 80.5 MCH 28.1 MCHC 34.9 RDW 15.5 Plt Count 247 MPV 10.0 Immature Gran % (Auto) 0.8 H Neut % (Auto) 79.4 H Lymph % (Auto) 7.9 L [place] % (Auto) 11.5 H Eos % (Auto) 0.2 Baso % (Auto) 0.2 Lymph # (Auto) 1.2 [place] # (Auto) 1.8 H Eos # (Auto) 0.0 Baso # (Auto) 0.0 Abs Immat Gran (auto) 0.13 H Absolute Neuts (auto) 12.4 H Absolute Nucleated RBC 0.000 Nucleated RBC % (auto) 0.0 Smear Tech's Comments VERIFIED ESR Anion Gap 30 H Estim Creat Clear Calc 10.0 Estimated GFR 5 Random Glucose 134 H Lactic Acid Calcium 7.3 L D Magnesium Total Bilirubin 0.8 AST 277 H ALT 674 H Alkaline Phosphatase 73 Total Creatine Kinase 42891 H Troponin I High Sens 174.6 H* Total Protein 6.4 L Albumin 3.7 Urine Color Urine Appearance Urine pH Ur Specific [place] Urine Protein Urine Glucose (UA) Urine Ketones Urine Blood Urine Nitrite Ur Leukocyte Esterase Urine RBC Urine WBC Ur Squamous Epith Cells Urine Bacteria Hyaline Casts Ethyl Alcohol Influenza Type A (PCR) Influenza Type B (PCR) RSV RNA Qual (PCR) SARS-CoV-2 RNA (RT-PCR) 08/30/22 08/30/22 08/30/22 20:36 20:36 20:36 MCV MCH MCHC RDW Plt Count MPV Immature Gran % (Auto) Neut % (Auto) Lymph % (Auto) [place] % (Auto) Eos % (Auto) Baso % (Auto) Lymph # (Auto) [place] # (Auto) Eos # (Auto) Baso # (Auto) Abs Immat Gran (auto) Absolute Neuts (auto) Absolute Nucleated RBC Nucleated RBC % (auto) Smear Tech's Comments ESR 73 H Anion Gap Estim Creat Clear Calc Estimated GFR Random Glucose Lactic Acid 1.7 Calcium Magnesium 3.3 H Total Bilirubin AST ALT Alkaline Phosphatase Total Creatine Kinase Troponin I High Sens Total Protein Albumin Urine Color Urine Appearance Urine pH Ur Specific [place] Urine Protein Urine Glucose (UA) Urine Ketones Urine Blood Urine Nitrite Ur Leukocyte Esterase Urine RBC Urine WBC Ur Squamous Epith Cells Urine Bacteria Hyaline Casts Ethyl Alcohol < 10 Influenza Type A (PCR) Influenza Type B (PCR) RSV RNA Qual (PCR) SARS-CoV-2 RNA (RT-PCR) 08/30/22 08/30/22 08/31/22 20:36 22:42 00:39 MCV MCH MCHC RDW Plt Count MPV Immature Gran % (Auto) Neut % (Auto) Lymph % (Auto) [place] % (Auto) Eos % (Auto) Baso % (Auto) Lymph # (Auto) [place] # (Auto) Eos # (Auto) Baso # (Auto) Abs Immat Gran (auto) Absolute Neuts (auto) Absolute Nucleated RBC Nucleated RBC % (auto) Smear Tech's Comments ESR Anion Gap Estim Creat Clear Calc Estimated GFR Random Glucose Lactic Acid Calcium Magnesium Total Bilirubin AST ALT Alkaline Phosphatase Total Creatine Kinase Troponin I High Sens 154.6 H* Total Protein Albumin Urine Color Dark Yellow Urine Appearance Cloudy Urine pH 5.0 Ur Specific [place] 1.020 Urine Protein 100 (2+) H Urine Glucose (UA) 500 H Urine Ketones Trace Urine Blood Large (3+) H Urine Nitrite Negative Ur Leukocyte Esterase Trace H Urine RBC 11-20 H Urine WBC 0-5 Ur Squamous Epith Cells 0-2 Urine Bacteria None Seen Hyaline Casts 0-2 Ethyl Alcohol Influenza Type A (PCR) NEGATIVE Influenza Type B (PCR) NEGATIVE RSV RNA Qual (PCR) NEGATIVE SARS-CoV-2 RNA (RT-PCR) NEGATIVE 08/31/22 07:11 MCV MCH MCHC RDW Plt Count MPV Immature Gran % (Auto) Neut % (Auto) Lymph % (Auto) [place] % (Auto) Eos % (Auto) Baso % (Auto) Lymph # (Auto) [place] # (Auto) Eos # (Auto) Baso # (Auto) Abs Immat Gran (auto) Absolute Neuts (auto) Absolute Nucleated RBC Nucleated RBC % (auto) Smear Tech's Comments ESR Anion Gap 22 H Estim Creat Clear Calc 10.5 Estimated GFR 6 Random Glucose 138 H Lactic Acid Calcium 6.1 L D Magnesium Total Bilirubin 0.6 AST 207 H ALT 434 H Alkaline Phosphatase 58 Total Creatine Kinase 22235 H Troponin I High Sens Total Protein 4.9 L Albumin 2.8 L Urine Color Urine Appearance Urine pH Ur Specific [place] Urine Protein Urine Glucose (UA) Urine Ketones Urine Blood Urine Nitrite Ur Leukocyte Esterase Urine RBC Urine WBC Ur Squamous Epith Cells Urine Bacteria Hyaline Casts Ethyl Alcohol Influenza Type A (PCR) Influenza Type B (PCR) RSV RNA Qual (PCR) SARS-CoV-2 RNA (RT-PCR) Assessment and Plan (1) Frostbite: Status: Acute (2) Hyperkalemia: Status: Acute (3) OLIVIA (acute kidney injury): Status: Acute (4) Rhabdomyolysis: Status: Acute Plan 52yo homeless M with anxiety + depression, opioid dependence, PTSD presenting with BLE weakness after immobility x3d, admitted for OLIVIA due to rhabdomyolysis # OLIVIA due to rhabdomyolysis - switched IV fluids to isotonic bicarbonate to alkalinize urine, monitor CPK + SCr daily - Nephrology consulted, hope to avoid HD # hyperK - 1 dose [facility], recheck BMP in am # frostbite - passive rewarmingStevan consulted # polysubstance abuse - Utox, Addiction Medicine # mood disorder - continue bupropion [renally dosed], clonazepam, mirtapazine, olanzapine, sertraline, trazodone # homelessness - CM consult # VTE ppx: UFH # dispo: TBD In my clinical judgment, the patient requires continued inpatient hospitalization for the following reasons: IV fluids Time Spent With Patient Time: Total time managing care of this patient today __45__ minutes. Quality Stroke Does the patient have a stroke diagnosis?: No VTE Prior VTE?: No VTE Risk Level:: Medical - moderate - high VTE Device Contraindication: Treatment Not Indicated VTE Drug Contraindication: N/A - Med Ordered
--- NOTE | 2022-08-31 14:37 | MHC.RECOVRN ---
Met with pt in 450 after consult placed to Addiction Medicine. Pt sitting in bed, awake, alert, engages in conversation, flat affect. Does not appear to be in withdrawal. Pt reports last substance use 4-5 days ago. Pt had been using heroin, [place], $100 daily as well as crack cocaine, $100 daily, INH. Pt has been on methadone in the past, not in years. Pt has never been on Suboxone. Pt denies withdrawal symptoms, denies cravings. Pt is not interested in MOUD at this time. Pt reports feeling weak and inability to move arms or legs. Denies questions or concerns for t/w. Discussed with pts RN.
[2022-08-31 17:05] LABS: Amphetamine Screen Urine Not Detected (Not Detect); Barbiturates, Urine Not Detected (Not Detect); Benzodiazepines Screen Urine Not Detected (Not Detect); Cannabinoid Screen Urine Not Detected (Not Detect); Cocaine Screen Urine POSITIVE (Not Detect); Fentanyl, urine POSITIVE (Not Detect); Opiate Screen Urine POSITIVE (Not Detect); Phencyclidine Screen Urine Not Detected (Not Detect)
[2022-08-31] MEDS: OLANZapine 10 MG TABLET 20 MG PO (21:16)
[2022-08-31] MEDS: traZODone HCL 100 MG TABLET PO (21:16)
[2022-08-31] MEDS: Mirtazapine 30 MG TABLET PO (21:16)
[2022-09-01 03:14] VITALS: BP 138/76; PULSE 98; RESP 16; TEMP 36.5; O2SAT 92
[2022-09-01 07:15] LABS: Anion Gap 24 (12-20); Calcium 6.5 mg/dL (8.4-10.2); Carbon Dioxide 18 mmol/L (22-29); Chloride 101 mmol/L (96-108); Glucose Random 138 mg/dL (60-115); Potassium 4.6 mmol/L (3.3-5.1); Sodium 138 mmol/L (135-145)
[2022-09-01 07:16] LABS: Creatinine Clr Calc Pharmacy 9.1; Estimated Glomerular Filt Rate 5
[2022-09-01] MEDS: Sodium Bicarbonate 8.4% 150 MEQ in Dextrose 5 % 850 ML 100 MEQ IV ×2 (07:30→20:56)
[2022-09-01 07:37] LABS: Blood Urea Nitrogen 161 mg/dL (9-16)
[2022-09-01 08:00] VITALS: BP 141/78; PULSE 93; RESP 17; TEMP 36.3; O2SAT 93
[2022-09-01] MEDS: Heparin Sodium,Porcine 5,000 UNIT/ML VIAL 5000 UNIT SUBCUT ×2 (09:09→20:56)
[2022-09-01] MEDS: Morphine Sulfate 4 MG/ML CARTRIDGE IVPUSH ×3 (09:09→22:37)
[2022-09-01] MEDS: Sertraline HCL 50 MG TABLET 150 MG PO (09:09)
[2022-09-01] MEDS: clonazePAM 1 MG TABLET PO ×2 (09:09→20:51)
[2022-09-01 09:47] VITALS: BP 138/76; PULSE 98; O2SAT 92
--- NOTE | 2022-09-01 10:43 | HO.PM.IMPN ---
Subjective Subjective Date of Service: 09/01/22 Interval History: urinating and CPK down but BUN/Cr worse painful toes Review of Systems Review of Systems: Yes all other systems are reviewed and are negative Physical Exam Vital Signs: Vital Signs: Last Vital Signs Temp 97.4 F 09/01/22 08:00 Pulse 98 09/01/22 09:47 Resp 17 09/01/22 08:00 BP 138/76 09/01/22 09:47 Pulse Ox 92 09/01/22 09:47 O2 Del Method Room Air 09/01/22 08:00 BMI result Body Mass Index 32.5 Gen: chronically ill-appearing, disheveled HEENT: sclera anicteric, moist mucus membranes Neck: supple Lungs: clear to auscultation bilaterally Heart: regular rate and rhythm, no murmurs Abd: soft, non-tender, non-distended Ext: swollen fingers and toes bilaterally Skin: dark blueish discoloration of distal aspect of toes bilaterally Neuro: alert and oriented x3, no focal findings Psych: appropriate affect Objective Data Active Medications Acetaminophen (Acetaminophen 325 Mg Tablet) 650 mg PO Q6H PRN PRN Reason: Pain, Mild (Pain Scale 1-3) Bupropion HCl (Bupropion Hcl 100 Mg Tablet) 150 mg PO Q72H [facility] Clonazepam (Clonazepam 1 Mg Tablet) 1 mg PO BID [facility] Last Admin: 09/01/22 09:09 Dose: 1 mg Documented By: LUIS Heparin Sodium (Porcine) (Heparin Sodium,Porcine 5,000 Unit/Ml Vial) 5,000 unit SUBCUT BID [facility] Last Admin: 09/01/22 09:09 Dose: 5,000 unit Documented By: LUIS Hydroxyzine HCl (Hydroxyzine Hcl 50 Mg Tablet) 50 mg PO BID PRN PRN Reason: Anxiety Sodium Bicarbonate 150 meq/ (Dextrose) 1,000 mls @ 100 mls/hr IV .Q10H [facility] Last Admin: 09/01/22 07:30 Dose: 100 mls/hr Documented By: LUIS Mirtazapine (Mirtazapine 30 Mg Tablet) 30 mg PO BEDTIME [facility] Last Admin: 08/31/22 21:16 Dose: 30 mg Documented By: MARNIE Morphine Sulfate (Morphine Sulfate 4 Mg/Ml Cartridge) 4 mg IVPUSH Q4H PRN; Protocol PRN Reason: Pain, Severe (Pain Scale 7-10) Last Admin: 09/01/22 09:09 Dose: 4 mg Documented By: LUIS Olanzapine (Olanzapine 10 Mg Tablet) 20 mg PO BEDTIME [facility] Last Admin: 08/31/22 21:16 Dose: 20 mg Documented By: MARNIE Ondansetron HCl (Ondansetron Hcl 4 Mg/2 Ml Vial) 4 mg IVPUSH Q8H PRN PRN Reason: Nausea and Vomiting Sertraline HCl (Sertraline Hcl 50 Mg Tablet) 150 mg PO DAILY [facility] Last Admin: 09/01/22 09:09 Dose: 150 mg Documented By: LUIS Sodium Chloride (0.9 % Sodium Chloride Flush 3 Ml Syringe) 3 ml IVFLUSH QSHIFT [facility] Last Admin: 09/01/22 07:31 Dose: Not Given Documented By: LUIS Non-Admin Reason: IV Running Trazodone HCl (Trazodone Hcl 100 Mg Tablet) 100 mg PO BEDTIME [facility] Last Admin: 08/31/22 21:16 Dose: 100 mg Documented By: MARNIE Labs 08/30/22 20:36 09/01/22 06:38 Labs: Laboratory Results - last 24 hr 08/31/22 09/01/22 16:27 06:38 Anion Gap 24 H Estim Creat Clear Calc 9.1 Estimated GFR 5 Random Glucose 138 H Calcium 6.5 L D Total Creatine Kinase 15050 H Urine Opiates Screen POSITIVE H Urine Fentanyl Screen POSITIVE H Ur Barbiturates Screen Not Detected Ur Phencyclidine Scrn Not Detected Ur Amphetamines Screen Not Detected U Benzodiazepines Scrn Not Detected Urine Cocaine Screen POSITIVE H U Marijuana (THC) Screen Not Detected Microbiology Microbiology Results: Microbiology 08/30/22 21:00 Blood Culture - Preliminary Blood - Venous No growth after 24 hours. 08/30/22 21:00 Blood Culture - Preliminary Blood - Venous No growth after 24 hours. Assessment and Plan (1) Frostbite: Status: Acute (2) Hyperkalemia: Status: Acute (3) OLIVIA (acute kidney injury): Status: Acute (4) Rhabdomyolysis: Status: Acute Plan d#3 52yo homeless M with anxiety + depression, opioid dependence, PTSD presenting with BLE weakness after immobility x3d, admitted for OLIVIA due to rhabdomyolysis # OLIVIA due to rhabdomyolysis - CPK down but BUN/SCr worse despite isotonic bicarbonate to alkalinize urine. Nephro consulted and plan temporary HD # hyperK - resolved p 1 dose [facility] # frostbite - passive rewarming, Surgery consulted + following; monitor for necrosis # polysubstance abuse - Addiction Medicine consulted- declines MAT # mood disorder - continue bupropion [renally dosed], clonazepam, mirtapazine, olanzapine, sertraline, trazodone # homelessness - CM consult # VTE ppx: UFH # dispo: will need STR In my clinical judgment, the patient requires continued inpatient hospitalization for the following reasons: IV fluids, HD Time Spent With Patient Time: Total time managing care of this patient today __45__ minutes. Quality Stroke Does the patient have a stroke diagnosis?: No VTE Prior VTE?: No VTE Risk Level:: Medical - moderate - high VTE Device Contraindication: Treatment Not Indicated VTE Drug Contraindication: N/A - Med Ordered
[2022-09-01 10:51] VITALS: BP 128/70; PULSE 90; RESP 17; TEMP 36.1; O2SAT 93
--- NOTE | 2022-09-01 11:27 | PM.PNNEP ---
Subjective Subjective Date of Service: 09/01/22 Interval history: seen and examined d/w medical attending feels weak Physical Exam Vital Signs: Vital Signs: Last Vital Signs Temp 97.0 F 09/01/22 10:51 Pulse 90 09/01/22 10:51 Resp 17 09/01/22 10:51 BP 128/70 09/01/22 10:51 Pulse Ox 93 09/01/22 10:51 O2 Del Method Room Air 09/01/22 10:51 BMI result Body Mass Index 32.5 Const: General: no acute distress HEENT: Head: Yes normocephalic and Yes atraumatic Neck: Neck: Yes supple Resp: Auscultation: clear to auscultation bilaterally Cardio: Heart sounds: S1 normal heart sound present and S2 normal heart sound present GI: Palpation (GI): Soft to palpation and nontender Extrem: General: Yes edema Objective Data Labs 08/30/22 20:36 09/01/22 06:38 Labs: Laboratory Results - last 24 hr 08/31/22 09/01/22 16:27 06:38 Sodium 138 Potassium 4.6 Chloride 101 Carbon Dioxide 18 L Anion Gap 24 H BUN 161 H Creatinine 10.96 H* Estim Creat Clear Calc 9.1 Estimated GFR 5 Random Glucose 138 H Calcium 6.5 L D Total Creatine Kinase 54803 H Urine Opiates Screen POSITIVE H Urine Fentanyl Screen POSITIVE H Ur Barbiturates Screen Not Detected Ur Phencyclidine Scrn Not Detected Ur Amphetamines Screen Not Detected U Benzodiazepines Scrn Not Detected Urine Cocaine Screen POSITIVE H U Marijuana (THC) Screen Not Detected Microbiology Microbiology Results: Microbiology 08/30/22 21:00 Blood - Venous Blood Culture - Preliminary No growth after 24 hours. 08/30/22 21:00 Blood - Venous Blood Culture - Preliminary No growth after 24 hours. Procedures Date of Service Date of Service: 09/01/22 Assessment & Plan Assessment and plan (1) OLIVIA (acute kidney injury): Status: Acute (2) Rhabdomyolysis: Status: Acute (3) Metabolic acidosis: Status: Acute Plan worsening kidney function dismal kidney clearance heme pigment nephrotoxicity normal baseline kidney function REC will arrange for dialysis catheter placement HD after placement of catheter follow cpk monitor urine output follow kidney function and electrolytes Time Spent With Patient Time: Total time managing care of this patient today ____ minutes. Progress Note: Quality Stroke Does the patient have a stroke diagnosis?: No
--- NOTE | 2022-09-01 12:28 | P.PNGS_ITS ---
Subjective Subjective Date of Service: 09/01/22 Interval history: Patient with no change in his lower extremity weakness. Reports some pain in bilateral feet left greater than right Physical Exam Vital Signs: Vital Signs: Last Vital Signs Temp 97.0 F 09/01/22 10:51 Pulse 90 09/01/22 10:51 Resp 17 09/01/22 10:51 BP 128/70 09/01/22 10:51 Pulse Ox 93 09/01/22 10:51 O2 Del Method Room Air 09/01/22 10:51 BMI result Body Mass Index 32.5 Const: Other: Sleepy, no acute distress Resp: Other: Breathing comfortably on room air, no respiratory distress. Extrem: Other: Bilateral lower extremity with bullous changes involving toes and forefoot. No clear line of demarcation noted yet. See photos below Objective Data Active Medications Acetaminophen (Acetaminophen 325 Mg Tablet) 650 mg PO Q6H PRN PRN Reason: Pain, Mild (Pain Scale 1-3) Bupropion HCl (Bupropion Hcl 100 Mg Tablet) 150 mg PO Q72H [facility] Clonazepam (Clonazepam 1 Mg Tablet) 1 mg PO BID [facility] Last Admin: 09/01/22 09:09 Dose: 1 mg Documented By: LUIS Heparin Sodium (Porcine) (Heparin Sodium,Porcine 5,000 Unit/Ml Vial) 5,000 unit SUBCUT BID [facility] Last Admin: 09/01/22 09:09 Dose: 5,000 unit Documented By: LUIS Hydroxyzine HCl (Hydroxyzine Hcl 50 Mg Tablet) 50 mg PO BID PRN PRN Reason: Anxiety Sodium Bicarbonate 150 meq/ (Dextrose) 1,000 mls @ 100 mls/hr IV .Q10H [facility] Last Admin: 09/01/22 07:30 Dose: 100 mls/hr Documented By: LUIS Mirtazapine (Mirtazapine 30 Mg Tablet) 30 mg PO BEDTIME [facility] Last Admin: 08/31/22 21:16 Dose: 30 mg Documented By: MARNIE Morphine Sulfate (Morphine Sulfate 4 Mg/Ml Cartridge) 4 mg IVPUSH Q4H PRN; Protocol PRN Reason: Pain, Severe (Pain Scale 7-10) Last Admin: 09/01/22 09:09 Dose: 4 mg Documented By: LUIS Olanzapine (Olanzapine 10 Mg Tablet) 20 mg PO BEDTIME [facility] Last Admin: 08/31/22 21:16 Dose: 20 mg Documented By: MARNIE Ondansetron HCl (Ondansetron Hcl 4 Mg/2 Ml Vial) 4 mg IVPUSH Q8H PRN PRN Reason: Nausea and Vomiting Sertraline HCl (Sertraline Hcl 50 Mg Tablet) 150 mg PO DAILY [facility] Last Admin: 09/01/22 09:09 Dose: 150 mg Documented By: LUIS Sodium Chloride (0.9 % Sodium Chloride Flush 3 Ml Syringe) 3 ml IVFLUSH QSHIFT [facility] Last Admin: 09/01/22 07:31 Dose: Not Given Documented By: LUIS Non-Admin Reason: IV Running Trazodone HCl (Trazodone Hcl 100 Mg Tablet) 100 mg PO BEDTIME [facility] Last Admin: 08/31/22 21:16 Dose: 100 mg Documented By: MARNIE Labs 08/30/22 20:36 09/01/22 06:38 Labs: Laboratory Results - last 24 hr 08/31/22 09/01/22 16:27 06:38 Anion Gap 24 H Estim Creat Clear Calc 9.1 Estimated GFR 5 Random Glucose 138 H Calcium 6.5 L D Total Creatine Kinase 88409 H Urine Opiates Screen POSITIVE H Urine Fentanyl Screen POSITIVE H Ur Barbiturates Screen Not Detected Ur Phencyclidine Scrn Not Detected Ur Amphetamines Screen Not Detected U Benzodiazepines Scrn Not Detected Urine Cocaine Screen POSITIVE H U Marijuana (THC) Screen Not Detected Microbiology Microbiology Results: Microbiology 08/30/22 21:00 Blood Culture - Preliminary Blood - Venous No growth after 24 hours. 08/30/22 21:00 Blood Culture - Preliminary Blood - Venous No growth after 24 hours. Procedures Date of Service Date of Service: 09/01/22 Progress Note: A&P Assessment and plan (1) Frostbite: Status: Acute Plan 52-year-old male patient presenting with bilateral lower extremity weakness and frostbite involving the bilateral toes. Wounds have progressed and now revealed bullous changes especially on the left side. No clear line of demarcation is noted yet. Will continue to monitor and debride as necessary. Time Spent With Patient Time: Total time managing care of this patient today ____ minutes. Quality Stroke Does the patient have a stroke diagnosis?: No VTE Prior VTE?: No VTE Risk Level:: Medical - moderate - high VTE Device Contraindication: Treatment Not Indicated VTE Drug Contraindication: N/A - Med Ordered
[2022-09-01 12:38] LABS: Prothrombin Time 11.5 SEC (10.0-13.1)
--- NOTE | 2022-09-01 15:15 | MHC.CM.PN ---
per rounds pt wiulices have pt eval pt receommended str pt is agreeable refferals made no anticalpted dc date
[2022-09-01 18:07] VITALS: BP 135/79; PULSE 99; RESP 14; TEMP 36.6; O2SAT 92
[2022-09-01] MEDS: 0.9 % Sodium Chloride Flush 3 ML SYRINGE IVFLUSH ×2 (18:11→20:51)
[2022-09-01 19:34] VITALS: BP 145/74; PULSE 94; RESP 15; TEMP 36.8; O2SAT 92
[2022-09-01] MEDS: OLANZapine 10 MG TABLET 20 MG PO (20:50)
[2022-09-01] MEDS: Mirtazapine 30 MG TABLET PO (20:51)
[2022-09-01] MEDS: traZODone HCL 100 MG TABLET PO (20:51)
[2022-09-02] VITALS (8 sets, daily range): BP systolic 130–145; BP diastolic 68–82; PULSE 91–105; RESP 18–20; TEMP 36.1–37.1; O2SAT 90–96
[2022-09-02 06:36] LABS: Hematocrit 35.7 % (42.0-52.0); Hemoglobin 12.5 g/dl (14.0-18.0); Mean Corpuscular Hemoglobin 28.2 pg (27.0-33.0); Mean Corpuscular Volume 80.4 fL (80.0-98.0); Mean Platelet Volume 10.1 fL (9.4-12.4); Platelet Count 187 X10*3/uL (160-400); Red Blood Count 4.44 X10*6/uL (4.60-5.80); Red Cell Distribution Width 15.2 % (11.0-16.0); White Blood Count 9.3 X10*3/uL (4.8-10.8)
[2022-09-02 07:02] LABS: Alanine Aminotransferase 206 U/L (0-40); Albumin Level 2.5 g/dL (3.5-5.0); Alkaline Phosphatase 72 U/L (39-117); Anion Gap 22 (12-20); Aspartate Amino Transferase 82 U/L (5-37); Bilirubin Total 0.6 mg/dL (0.0-1.0); Calcium 7.1 mg/dL (8.4-10.2); Carbon Dioxide 28 mmol/L (22-29); Chloride 95 mmol/L (96-108); Estimated Glomerular Filt Rate 6; Glucose Random 125 mg/dL (60-115); Potassium 4.1 mmol/L (3.3-5.1); Sodium 141 mmol/L (135-145); Total Protein 4.7 g/dL (6.5-8.0)
[2022-09-02 07:19] LABS: Blood Urea Nitrogen 137 mg/dL (9-16)
[2022-09-02] MEDS: Heparin Sodium,Porcine 5,000 UNIT/ML VIAL 5000 UNIT SUBCUT ×2 (08:57→20:34)
[2022-09-02] MEDS: Sertraline HCL 50 MG TABLET 150 MG PO (08:57)
[2022-09-02] MEDS: clonazePAM 1 MG TABLET PO ×2 (08:57→20:35)
[2022-09-02] MEDS: 0.9 % Sodium Chloride Flush 3 ML SYRINGE IVFLUSH ×2 (08:58→20:35)
[2022-09-02] MEDS: Morphine Sulfate 4 MG/ML CARTRIDGE IVPUSH ×3 (08:58→20:35)
[2022-09-02] MEDS: Sodium Bicarbonate 8.4% 150 MEQ in Dextrose 5 % 850 ML 100 MEQ IV ×2 (09:20→23:49)
--- NOTE | 2022-09-02 10:12 | P.PNIM_ITS ---
Subjective Subjective Date of Service: 09/02/22 Interval History: Started HD yesterday Very weak Blisters on feet now Review of Systems Review of Systems: Yes all other systems are reviewed and are negative Physical Exam Vital Signs: Vital Signs: Last Vital Signs Temp 97.2 F 09/02/22 08:00 Pulse 99 09/02/22 09:07 Resp 20 09/02/22 08:00 BP 142/72 H 09/02/22 09:07 Pulse Ox 91 L 09/02/22 09:07 O2 Del Method Room Air 09/02/22 08:00 BMI result Body Mass Index 32.5 Gen: NAD HEENT: sclera anicteric, moist mucus membranes Neck: supple Lungs: clear to auscultation bilaterally Heart: regular rate and rhythm, no murmurs Abd: soft, non-tender, non-distended Ext: swollen fingers and toes bilaterally Skin: dark bluish discoloration of distal aspect of toes bilaterally with clear fluid-filled blistering Neuro: alert and oriented x3, BLE strength 1/5, BUE strength 3/5 Psych: appropriate affect Objective Data Active Medications Acetaminophen (Acetaminophen 325 Mg Tablet) 650 mg PO Q6H PRN PRN Reason: Pain, Mild (Pain Scale 1-3) Bupropion HCl (Bupropion Hcl 100 Mg Tablet) 150 mg PO Q72H [facility] Clonazepam (Clonazepam 1 Mg Tablet) 1 mg PO BID [facility] Last Admin: 09/02/22 08:57 Dose: 1 mg Documented By: CELIA Heparin Sodium (Porcine) (Heparin Sodium,Porcine 5,000 Unit/Ml Vial) 5,000 unit SUBCUT BID [facility] Last Admin: 09/02/22 08:57 Dose: 5,000 unit Documented By: CELIA Hydroxyzine HCl (Hydroxyzine Hcl 50 Mg Tablet) 50 mg PO BID PRN PRN Reason: Anxiety Sodium Bicarbonate 150 meq/ (Dextrose) 1,000 mls @ 100 mls/hr IV .Q10H [facility] Last Admin: 09/02/22 09:20 Dose: 100 mls/hr Documented By: CELIA Mirtazapine (Mirtazapine 30 Mg Tablet) 30 mg PO BEDTIME [facility] Last Admin: 09/01/22 20:51 Dose: 30 mg Documented By: JI Morphine Sulfate (Morphine Sulfate 4 Mg/Ml Cartridge) 4 mg IVPUSH Q4H PRN; Protocol PRN Reason: Pain, Severe (Pain Scale 7-10) Last Admin: 09/02/22 08:58 Dose: 4 mg Documented By: CELIA Olanzapine (Olanzapine 10 Mg Tablet) 20 mg PO BEDTIME [facility] Last Admin: 09/01/22 20:50 Dose: 20 mg Documented By: JI Ondansetron HCl (Ondansetron Hcl 4 Mg/2 Ml Vial) 4 mg IVPUSH Q8H PRN PRN Reason: Nausea and Vomiting Sertraline HCl (Sertraline Hcl 50 Mg Tablet) 150 mg PO DAILY [facility] Last Admin: 09/02/22 08:57 Dose: 150 mg Documented By: CELIA Sodium Chloride (0.9 % Sodium Chloride Flush 3 Ml Syringe) 3 ml IVFLUSH QSHIFT [facility] Last Admin: 09/02/22 08:58 Dose: 3 ml Documented By: CELIA Trazodone HCl (Trazodone Hcl 100 Mg Tablet) 100 mg PO BEDTIME [facility] Last Admin: 09/01/22 20:51 Dose: 100 mg Documented By: JI Labs 09/02/22 06:23 09/02/22 06:22 Labs: Laboratory Results - last 24 hr 09/01/22 09/02/22 09/02/22 12:17 06:22 06:23 MCV 80.4 MCH 28.2 MCHC 35.0 RDW 15.2 Plt Count 187 MPV 10.1 Absolute Nucleated RBC 0.000 Nucleated RBC % (auto) 0.0 PT 11.5 INR 1.0 Anion Gap 22 H Estim Creat Clear Calc 10.0 Estimated GFR 6 Random Glucose 125 H Calcium 7.1 L D Total Bilirubin 0.6 AST 82 H ALT 206 H Alkaline Phosphatase 72 Total Creatine Kinase 8003 H Total Protein 4.7 L Albumin 2.5 L Microbiology Microbiology Results: Microbiology 08/30/22 21:00 Blood Culture - Preliminary Blood - Venous No growth after 48 hours. 08/30/22 21:00 Blood Culture - Preliminary Blood - Venous No growth after 48 hours. Assessment and Plan (1) Frostbite: Status: Acute (2) Hyperkalemia: Status: Acute (3) OLIVIA (acute kidney injury): Status: Acute (4) Rhabdomyolysis: Status: Acute Plan d#4 52yo homeless M with anxiety + depression, opioid dependence, PTSD presenting with BLE weakness after immobility x3d, admitted for OLIVIA due to rhabdomyolysis; was down for estimaed 2-3d # OLIVIA due to rhabdomyolysis - CPK down but BUN/SCr worse despite isotonic bicarbonate to alkalinize urine, so started HD yesterday. Nephro following # weakness - question of flexion myelopathy; will consult Neuro # hyperK - resolved p 1 dose SZC # frostbite - passive rewarming, Surgery consulted + following; monitor for necrosis # polysubstance abuse - Addiction Medicine consulted- declines MAT # mood disorder - continue bupropion [renally dosed], clonazepam, mirtapazine, olanzapine, sertraline, trazodone # homelessness - CM consult # VTE ppx: UFH # dispo: will need STR In my clinical judgment, the patient requires continued inpatient hospitalization for the following reasons: IV fluids, HD Time Spent With Patient Time: Total time managing care of this patient today ___45_ minutes. Quality Stroke Does the patient have a stroke diagnosis?: No VTE Prior VTE?: No VTE Risk Level:: Medical - moderate - high VTE Device Contraindication: Treatment Not Indicated VTE Drug Contraindication: N/A - Med Ordered
--- NOTE | 2022-09-02 10:45 | PM.NEUROCN ---
History of Present Illness Data of Consult Service Date: 09/02/22 Primary Care Provider: None Physician HPI Reason for consult: Weakness 52 years old unfortunate homeless man who was brought to emergency room stating that he has been calling 911 for a while, he stated for 3 days, due to his inability to move. Apparently he has been living [place] a bridge and was exposed to cold and had significant frostbite in his feet. Previously he had normal kidney functions but on presentation he was noted to have remarkably high CPK levels and very abnormal renal functions. There was no history of any recent trauma. He still could not move his legs or not move them as much as he used to. Review of Systems Review of Systems: No recent cold or flu-like illness or trauma. [facility] Past Medical History Medical History Anxiety Chronic post-traumatic stress disorder (PTSD) Depression Opioid dependence on agonist therapy Suicidal ideation Social History Social History Household Members: None Housing: Homeless Do you presently have visiting nurse or other home services: No Alcohol intake: never Patient Tobacco Use Status: Current everyday Tobacco user Tobacco use type: Cigarette Cigarette Packs Per Day: 0.5 Cigarettes Per Day: 10.0 Years Smoked: 20 e-Cigarette/Vaping Use: Never Used Second Hand Smoke Exposure: No Substance Use Type: Crack/Cocaine and Opiates service: No Current occupational status: employed Sexual orientation: Straight/Heterosexual Meds Allergies Allergy/AdvReac Type Severity Reaction Status Date / Time No Known Allergies Allergy Verified 11/07/20 02:03 [No Known Allergies*] Active Medications: Current Medications Acetaminophen (Acetaminophen 325 Mg Tablet) 650 mg PO Q6H PRN PRN Reason: Pain, Mild (Pain Scale 1-3) Bupropion HCl (Bupropion Hcl 100 Mg Tablet) 150 mg PO Q72H [facility] Clonazepam (Clonazepam 1 Mg Tablet) 1 mg PO BID [facility] Last Admin: 09/02/22 08:57 Dose: 1 mg Heparin Sodium (Porcine) (Heparin Sodium,Porcine 5,000 Unit/Ml Vial) 5,000 unit SUBCUT BID [facility] Last Admin: 09/02/22 08:57 Dose: 5,000 unit Hydroxyzine HCl (Hydroxyzine Hcl 50 Mg Tablet) 50 mg PO BID PRN PRN Reason: Anxiety Sodium Bicarbonate 150 meq/ (Dextrose) 1,000 mls @ 100 mls/hr IV .Q10H [facility] Last Admin: 09/02/22 09:20 Dose: 100 mls/hr Mirtazapine (Mirtazapine 30 Mg Tablet) 30 mg PO BEDTIME [facility] Last Admin: 09/01/22 20:51 Dose: 30 mg Morphine Sulfate (Morphine Sulfate 4 Mg/Ml Cartridge) 4 mg IVPUSH Q4H PRN; Protocol PRN Reason: Pain, Severe (Pain Scale 7-10) Last Admin: 09/02/22 08:58 Dose: 4 mg Olanzapine (Olanzapine 10 Mg Tablet) 20 mg PO BEDTIME [facility] Last Admin: 09/01/22 20:50 Dose: 20 mg Ondansetron HCl (Ondansetron Hcl 4 Mg/2 Ml Vial) 4 mg IVPUSH Q8H PRN PRN Reason: Nausea and Vomiting Sertraline HCl (Sertraline Hcl 50 Mg Tablet) 150 mg PO DAILY [facility] Last Admin: 09/02/22 08:57 Dose: 150 mg Sodium Chloride (0.9 % Sodium Chloride Flush 3 Ml Syringe) 3 ml IVFLUSH QSHIFT [facility] Last Admin: 09/02/22 08:58 Dose: 3 ml Trazodone HCl (Trazodone Hcl 100 Mg Tablet) 100 mg PO BEDTIME [facility] Last Admin: 09/01/22 20:51 Dose: 100 mg Home Medications Medication Instructions Recorded Confirmed Last Taken Type bupropion HCl 150 mg tablet,12 hr 150 mg PO DAILY 08/31/22 08/31/22 Unknown History sustained-release clonazepam 1 mg tablet 1 mg PO BID 08/31/22 08/31/22 Unknown History hydroxyzine pamoate 50 mg capsule 50 mg PO BID PRN Anxiety 08/31/22 08/31/22 Unknown History mirtazapine 30 mg tablet 30 mg PO BEDTIME 08/31/22 08/31/22 Unknown History olanzapine 20 mg tablet 20 mg PO BEDTIME 08/31/22 08/31/22 Unknown History sertraline 100 mg tablet 150 mg PO DAILY 08/31/22 08/31/22 Unknown History trazodone 50 mg tablet 100 mg PO BEDTIME 08/31/22 08/31/22 Unknown History Physical Exam Vital Signs: Vital Signs: Last Vital Signs Temp 97.2 F 09/02/22 08:00 Pulse 99 09/02/22 09:07 Resp 20 09/02/22 08:00 BP 142/72 H 09/02/22 09:07 Pulse Ox 91 L 09/02/22 09:07 O2 Del Method Room Air 09/02/22 08:00 BMI result Body Mass Index 32.5 Neuro: Other: On examination he was alert and awake with flat affect with normal spontaneity and fluency of speech. There was mild edema in upper extremities and moderate and lower with significant findings of frostbite in his feet with bluish discoloration of his toes. He could not wiggle his toes and did not move his legs. He was moving his arms. Face was symmetrical. Visual griffith are full. Reflexes were flat. Results Labs 09/02/22 06:23 09/02/22 06:22 Labs: Short CBC 09/02/22 Range/Units 06:23 WBC 9.3 (4.8-10.8) X10*3/uL Hgb 12.5 L (14.0-18.0) g/dl Hct 35.7 L (42.0-52.0) % Plt Count 187 (160-400) X10*3/uL BMP 09/02/22 06:22 Sodium 141 Potassium 4.1 Chloride 95 L Carbon Dioxide 28 BUN 137 H Creatinine 9.99 H* Calcium 7.1 L D Cardiac Enzymes 09/02/22 Range/Units 06:22 Total Creatine Kinase 8003 H (38-174) U/L Liver Function 09/02/22 Range/Units 06:22 Total Bilirubin 0.6 (0.0-1.0) mg/dL AST 82 H (5-37) U/L ALT 206 H (0-40) U/L Alkaline Phosphatase 72 (39-117) U/L Albumin 2.5 L (3.5-5.0) g/dL His tox screen was positive for cocaine, CPK level was quite high with quite abnormal renal functions. Microbiology Microbiology Results: Microbiology 08/30/22 21:00 Blood - Venous Blood Culture - Preliminary No growth after 48 hours. 08/30/22 21:00 Blood - Venous Blood Culture - Preliminary No growth after 48 hours. Assessment and Plan (1) Rhabdomyolysis: Status: Acute 52 years old unfortunate man, homeless, who stated that he could not move foot 2-3 days [place] living [place] a bridge. At this time he has significant rhabdomyolysis with renal failure. Tox screen was positive for cocaine Milo other things. Exact etiology of what triggered this is not clear. Because of unusual presentation, my recommendation is to obtain MRI of cervical and thoracic spine without contrast to see any sign of myelopathy. Both myelopathy and neuropathy or consideration for explanation of his leg weakness but neuropathy would be difficult to confirm because of significant edema as EMG nerve conduction study would not be possible. In any case, his main issue at this point is frostbite and related complications in his feet, rhabdomyolysis and renal failure. Time Spent With Patient Time: Total time managing care of this patient today ____ minutes. Procedures Date of Service Date of Service: 09/02/22
--- NOTE | 2022-09-02 11:40 | P.PNGS_ITS ---
Subjective Subjective Date of Service: 09/02/22 Patient reports: no new complaints Physical Exam Vital Signs: Vital Signs: Last Vital Signs Temp 97.2 F 09/02/22 08:00 Pulse 99 09/02/22 09:07 Resp 20 09/02/22 08:00 BP 142/72 H 09/02/22 09:07 Pulse Ox 91 L 09/02/22 09:07 O2 Del Method Room Air 09/02/22 08:00 BMI result Body Mass Index 32.5 Extrem: Other: woumd is status quo continue curret tx Objective Data Active Medications Acetaminophen (Acetaminophen 325 Mg Tablet) 650 mg PO Q6H PRN PRN Reason: Pain, Mild (Pain Scale 1-3) Bupropion HCl (Bupropion Hcl 100 Mg Tablet) 150 mg PO Q72H [facility] Clonazepam (Clonazepam 1 Mg Tablet) 1 mg PO BID [facility] Last Admin: 09/02/22 08:57 Dose: 1 mg Documented By: CELIA Heparin Sodium (Porcine) (Heparin Sodium,Porcine 5,000 Unit/Ml Vial) 5,000 unit SUBCUT BID [facility] Last Admin: 09/02/22 08:57 Dose: 5,000 unit Documented By: CELIA Hydroxyzine HCl (Hydroxyzine Hcl 50 Mg Tablet) 50 mg PO BID PRN PRN Reason: Anxiety Sodium Bicarbonate 150 meq/ (Dextrose) 1,000 mls @ 100 mls/hr IV .Q10H [facility] Last Admin: 09/02/22 09:20 Dose: 100 mls/hr Documented By: CELIA Mirtazapine (Mirtazapine 30 Mg Tablet) 30 mg PO BEDTIME [facility] Last Admin: 09/01/22 20:51 Dose: 30 mg Documented By: JI Morphine Sulfate (Morphine Sulfate 4 Mg/Ml Cartridge) 4 mg IVPUSH Q4H PRN; Protocol PRN Reason: Pain, Severe (Pain Scale 7-10) Last Admin: 09/02/22 08:58 Dose: 4 mg Documented By: CELIA Olanzapine (Olanzapine 10 Mg Tablet) 20 mg PO BEDTIME [facility] Last Admin: 09/01/22 20:50 Dose: 20 mg Documented By: JI Ondansetron HCl (Ondansetron Hcl 4 Mg/2 Ml Vial) 4 mg IVPUSH Q8H PRN PRN Reason: Nausea and Vomiting Sertraline HCl (Sertraline Hcl 50 Mg Tablet) 150 mg PO DAILY [facility] Last Admin: 09/02/22 08:57 Dose: 150 mg Documented By: CELIA Sodium Chloride (0.9 % Sodium Chloride Flush 3 Ml Syringe) 3 ml IVFLUSH QSHIFT [facility] Last Admin: 09/02/22 08:58 Dose: 3 ml Documented By: CELIA Trazodone HCl (Trazodone Hcl 100 Mg Tablet) 100 mg PO BEDTIME [facility] Last Admin: 09/01/22 20:51 Dose: 100 mg Documented By: JI Labs 09/02/22 06:23 09/02/22 06:22 Labs: Laboratory Results - last 24 hr 09/01/22 09/02/22 09/02/22 12:17 06:22 06:23 MCV 80.4 MCH 28.2 MCHC 35.0 RDW 15.2 Plt Count 187 MPV 10.1 Absolute Nucleated RBC 0.000 Nucleated RBC % (auto) 0.0 PT 11.5 INR 1.0 Anion Gap 22 H Estim Creat Clear Calc 10.0 Estimated GFR 6 Random Glucose 125 H Calcium 7.1 L D Total Bilirubin 0.6 AST 82 H ALT 206 H Alkaline Phosphatase 72 Total Creatine Kinase 8003 H Total Protein 4.7 L Albumin 2.5 L Microbiology Microbiology Results: Microbiology 08/30/22 21:00 Blood Culture - Preliminary Blood - Venous No growth after 48 hours. 08/30/22 21:00 Blood Culture - Preliminary Blood - Venous No growth after 48 hours. Procedures Date of Service Date of Service: 09/02/22 Progress Note: A&P Assessment and plan (1) Frostbite: Status: Acute Time Spent With Patient Time: Total time managing care of this patient today ____ minutes. Quality Stroke Does the patient have a stroke diagnosis?: No VTE Prior VTE?: No VTE Risk Level:: Medical - moderate - high VTE Device Contraindication: Treatment Not Indicated VTE Drug Contraindication: N/A - Med Ordered
--- NOTE | 2022-09-02 13:13 | PM.PNNEP ---
Subjective Subjective Date of Service: 09/02/22 Interval history: seen and examined had HD earlier lethargic Physical Exam Vital Signs: Vital Signs: Last Vital Signs Temp 98.7 F 09/02/22 12:00 Pulse 91 09/02/22 12:00 Resp 20 09/02/22 12:00 BP 144/73 H 09/02/22 12:00 Pulse Ox 93 09/02/22 12:00 O2 Del Method Room Air 09/02/22 12:00 BMI result Body Mass Index 32.5 Const: General: no acute distress HEENT: Head: Yes normocephalic and Yes atraumatic Neck: Neck: Yes supple Resp: Auscultation: clear to auscultation bilaterally Cardio: Heart sounds: S1 normal heart sound present and S2 normal heart sound present GI: Palpation (GI): Soft to palpation and nontender Extrem: General: Yes edema Objective Data Labs 09/02/22 06:23 09/02/22 06:22 Labs: Laboratory Results - last 24 hr 09/02/22 09/02/22 06:22 06:23 WBC 9.3 RBC 4.44 L Hgb 12.5 L Hct 35.7 L MCV 80.4 MCH 28.2 MCHC 35.0 RDW 15.2 Plt Count 187 MPV 10.1 Absolute Nucleated RBC 0.000 Nucleated RBC % (auto) 0.0 Sodium 141 Potassium 4.1 Chloride 95 L Carbon Dioxide 28 Anion Gap 22 H BUN 137 H Creatinine 9.99 H* Estim Creat Clear Calc 10.0 Estimated GFR 6 Random Glucose 125 H Calcium 7.1 L D Total Bilirubin 0.6 AST 82 H ALT 206 H Alkaline Phosphatase 72 Total Creatine Kinase 8003 H Total Protein 4.7 L Albumin 2.5 L Microbiology Microbiology Results: Microbiology 08/30/22 21:00 Blood - Venous Blood Culture - Preliminary No growth after 48 hours. 08/30/22 21:00 Blood - Venous Blood Culture - Preliminary No growth after 48 hours. Procedures Date of Service Date of Service: 09/02/22 Assessment & Plan Assessment and plan (1) OLIVIA (acute kidney injury): Status: Acute (2) Rhabdomyolysis: Status: Acute (3) Metabolic acidosis: Status: Acute Plan s/p temporary dialysis catheter placement worsening kidney function dismal kidney clearance heme pigment nephrotoxicity normal baseline kidney function REC HD today run even follow cpk reassess need for [employer] in am monitor urine output follow kidney function and electrolytes Time Spent With Patient Time: Total time managing care of this patient today ____ minutes. Progress Note: Quality Stroke Does the patient have a stroke diagnosis?: No
[2022-09-02] MEDS: traZODone HCL 100 MG TABLET PO (20:34)
[2022-09-02] MEDS: OLANZapine 10 MG TABLET 20 MG PO (20:34)
[2022-09-02] MEDS: Mirtazapine 30 MG TABLET PO (20:35)
[2022-09-03 03:19] VITALS: BP 134/79; PULSE 102; RESP 18; TEMP 36.9; O2SAT 91
[2022-09-03 07:40] VITALS: BP 144/83; PULSE 99; RESP 20; TEMP 36.8; O2SAT 91
[2022-09-03 07:43] LABS: Hematocrit 34.5 % (42.0-52.0); Mean Corpuscular HGB Conc 34.8 g/dl (31.0-36.0); Mean Corpuscular Volume 83.3 fL (80.0-98.0); Mean Platelet Volume 10.7 fL (9.4-12.4); Platelet Count 190 X10*3/uL (160-400); Red Blood Count 4.14 X10*6/uL (4.60-5.80); Red Cell Distribution Width 15.7 % (11.0-16.0); White Blood Count 10.6 X10*3/uL (4.8-10.8)
[2022-09-03] MEDS: buPROPion HCL 100 MG TABLET 150 MG PO (07:57)
[2022-09-03] MEDS: clonazePAM 1 MG TABLET PO ×2 (07:57→20:07)
[2022-09-03] MEDS: Sertraline HCL 50 MG TABLET 150 MG PO (07:57)
[2022-09-03] MEDS: Heparin Sodium,Porcine 5,000 UNIT/ML VIAL 5000 UNIT SUBCUT ×2 (07:58→20:06)
[2022-09-03] MEDS: Morphine Sulfate 4 MG/ML CARTRIDGE IVPUSH ×3 (07:58→20:06)
--- NOTE | 2022-09-03 08:23 | PM.PNNEP ---
Subjective Subjective Date of Service: 09/03/22 Interval history: seen and examined had HD yesterday denies CP/SOB/N/V/D Physical Exam Vital Signs: Vital Signs: Last Vital Signs Temp 98.2 F 09/03/22 07:40 Pulse 99 09/03/22 07:40 Resp 20 09/03/22 07:40 BP 144/83 H 09/03/22 07:40 Pulse Ox 91 L 09/03/22 07:40 O2 Del Method Room Air 09/03/22 07:40 BMI result Body Mass Index 32.5 Const: General: no acute distress HEENT: Head: Yes normocephalic and Yes atraumatic Neck: Neck: Yes supple Resp: Auscultation: clear to auscultation bilaterally Cardio: Heart sounds: S1 normal heart sound present and S2 normal heart sound present GI: Palpation (GI): Soft to palpation and nontender Extrem: General: Yes edema Objective Data Labs 09/03/22 06:32 09/02/22 06:22 Labs: Laboratory Results - last 24 hr 09/03/22 06:32 WBC 10.6 RBC 4.14 L Hgb 12.0 L Hct 34.5 L MCV 83.3 MCH 29.0 MCHC 34.8 RDW 15.7 Plt Count 190 MPV 10.7 Absolute Nucleated RBC 0.000 Nucleated RBC % (auto) 0.0 Microbiology Microbiology Results: Microbiology 08/30/22 21:00 Blood - Venous Blood Culture - Preliminary No growth after 48 hours. 08/30/22 21:00 Blood - Venous Blood Culture - Preliminary No growth after 48 hours. Procedures Date of Service Date of Service: 09/03/22 Assessment & Plan Assessment and plan (1) OLIVIA (acute kidney injury): Status: Acute (2) Rhabdomyolysis: Status: Acute (3) Metabolic acidosis: Status: Acute Plan s/p HD yesterday s/p temporary dialysis catheter placement worsening kidney function dismal kidney clearance heme pigment nephrotoxicity normal baseline kidney function REC hold HD today reassess need for HD in am follow cpk monitor urine output follow kidney function and electrolytes Time Spent With Patient Time: Total time managing care of this patient today ____ minutes. Progress Note: Quality Stroke Does the patient have a stroke diagnosis?: No
[2022-09-03 08:27] LABS: Anion Gap 21 (12-20); Calcium 6.9 mg/dL (8.4-10.2); Carbon Dioxide 31 mmol/L (22-29); Chloride 93 mmol/L (96-108); Creatinine Clr Calc Pharmacy 9.4; Estimated Glomerular Filt Rate 5; Glucose Random 120 mg/dL (60-115); Potassium 4.5 mmol/L (3.3-5.1); Sodium 140 mmol/L (135-145)
[2022-09-03 09:04] LABS: Blood Urea Nitrogen 122 mg/dL (9-16)
[2022-09-03] MEDS: Sodium Bicarbonate 8.4% 150 MEQ in Dextrose 5 % 850 ML 100 MEQ IV (10:18)
[2022-09-03 11:13] VITALS: BP 136/76; PULSE 100; RESP 20; TEMP 36.6; O2SAT 90
--- NOTE | 2022-09-03 11:15 | HO.PM.IMPN ---
Subjective Subjective Date of Service: 09/03/22 Interval History: CPK still coming down but SCr still >10 Pain/swelling of toes/fingers Review of Systems Review of Systems: Yes all other systems are reviewed and are negative Physical Exam Vital Signs: Vital Signs: Last Vital Signs Temp 98.2 F 09/03/22 07:40 Pulse 99 09/03/22 07:40 Resp 20 09/03/22 07:40 BP 144/83 H 09/03/22 07:40 Pulse Ox 91 L 09/03/22 07:40 O2 Del Method Room Air 09/03/22 07:40 BMI result Body Mass Index 32.5 Gen: NAD HEENT: sclera anicteric, moist mucus membranes Neck: supple Lungs: clear to auscultation bilaterally Heart: regular rate and rhythm, no murmurs Abd: soft, non-tender, non-distended Ext: swollen fingers and toes bilaterally Skin: dark bluish discoloration of distal aspect of toes bilaterally with clear fluid-filled blistering Neuro: alert and oriented x3, BLE strength 1/5, BUE strength 3/5 Psych: appropriate affect Objective Data Active Medications Acetaminophen (Acetaminophen 325 Mg Tablet) 650 mg PO Q6H PRN PRN Reason: Pain, Mild (Pain Scale 1-3) Bupropion HCl (Bupropion Hcl 100 Mg Tablet) 150 mg PO Q72H [facility] Last Admin: 09/03/22 07:57 Dose: 150 mg Documented By: CELIA Clonazepam (Clonazepam 1 Mg Tablet) 1 mg PO BID [facility] Last Admin: 09/03/22 07:57 Dose: 1 mg Documented By: CEILA Heparin Sodium (Porcine) (Heparin Sodium,Porcine 5,000 Unit/Ml Vial) 5,000 unit SUBCUT BID [facility] Last Admin: 09/03/22 07:58 Dose: 5,000 unit Documented By: CELIA Hydroxyzine HCl (Hydroxyzine Hcl 50 Mg Tablet) 50 mg PO BID PRN PRN Reason: Anxiety Sodium Bicarbonate 150 meq/ (Dextrose) 1,000 mls @ 100 mls/hr IV .Q10H [facility] Last Admin: 09/03/22 10:18 Dose: 100 mls/hr Documented By: CELIA Mirtazapine (Mirtazapine 30 Mg Tablet) 30 mg PO BEDTIME [facility] Last Admin: 09/02/22 20:35 Dose: 30 mg Documented By: JI Morphine Sulfate (Morphine Sulfate 4 Mg/Ml Cartridge) 4 mg IVPUSH Q4H PRN; Protocol PRN Reason: Pain, Severe (Pain Scale 7-10) Last Admin: 09/03/22 07:58 Dose: 4 mg Documented By: CELIA Olanzapine (Olanzapine 10 Mg Tablet) 20 mg PO BEDTIME [facility] Last Admin: 09/02/22 20:34 Dose: 20 mg Documented By: JI Ondansetron HCl (Ondansetron Hcl 4 Mg/2 Ml Vial) 4 mg IVPUSH Q8H PRN PRN Reason: Nausea and Vomiting Sertraline HCl (Sertraline Hcl 50 Mg Tablet) 150 mg PO DAILY [facility] Last Admin: 09/03/22 07:57 Dose: 150 mg Documented By: CELIA Sodium Chloride (0.9 % Sodium Chloride Flush 3 Ml Syringe) 3 ml IVFLUSH QSHIFT [facility] Last Admin: 09/03/22 07:56 Dose: Not Given Documented By: CELIA Non-Admin Reason: IV Running Trazodone HCl (Trazodone Hcl 100 Mg Tablet) 100 mg PO BEDTIME [facility] Last Admin: 09/02/22 20:34 Dose: 100 mg Documented By: JI Labs 09/03/22 06:32 09/03/22 06:32 Labs: Laboratory Results - last 24 hr 09/03/22 09/03/22 06:32 06:32 MCV 83.3 MCH 29.0 MCHC 34.8 RDW 15.7 Plt Count 190 MPV 10.7 Absolute Nucleated RBC 0.000 Nucleated RBC % (auto) 0.0 Anion Gap 21 H Estim Creat Clear Calc 9.4 Estimated GFR 5 Random Glucose 120 H Calcium 6.9 L Total Creatine Kinase 4515 H Impressions Cervical Spine MRI 09/02/22 13:45 IMPRESSION: 1. Regions of signal abnormality within the supratentorial and infratentorial parenchyma, including symmetric bilateral involvement of the globi pallidi and cerebellar hemispheres, most compatible with toxic/metabolic encephalopathy given the provided clinical history. This is superimposed on a background of hazy ill-defined T2 FLAIR hyperintensity in the deep and periventricular white matter. Ill-defined reticular enhancement in the region of signal abnormality in the cerebellar hemispheres, likely on the basis of blood brain barrier disruption, with a few punctate microhemorrhages. Regional mass effect in the posterior fossa without effacement of the fourth ventricle. 2. No significant spinal canal or neural foraminal stenosis in the cervical spine. No gross cord signal abnormality, within limitations of motion artifact. 3. Partially imaged edema tracking within the myofascial planes of the right greater than left cervical paraspinal soft tissues with some patchy intramuscular edema, which may be related to reported history of rhabdomyolysis, posttraumatic contusions, or reflective of grade 1 strains. Brain MRI 09/02/22 14:37 IMPRESSION: 1. Regions of signal abnormality within the supratentorial and infratentorial parenchyma, including symmetric bilateral involvement of the globi pallidi and cerebellar hemispheres, most compatible with toxic/metabolic encephalopathy given the provided clinical history. This is superimposed on a background of hazy ill-defined T2 FLAIR hyperintensity in the deep and periventricular white matter. Ill-defined reticular enhancement in the region of signal abnormality in the cerebellar hemispheres, likely on the basis of blood brain barrier disruption, with a few punctate microhemorrhages. Regional mass effect in the posterior fossa without effacement of the fourth ventricle. 2. No significant spinal canal or neural foraminal stenosis in the cervical spine. No gross cord signal abnormality, within limitations of motion artifact. 3. Partially imaged edema tracking within the myofascial planes of the right greater than left cervical paraspinal soft tissues with some patchy intramuscular edema, which may be related to reported history of rhabdomyolysis, posttraumatic contusions, or reflective of grade 1 strains. Assessment and Plan (1) Frostbite: Status: Acute (2) Hyperkalemia: Status: Acute (3) OLIVIA (acute kidney injury): Status: Acute (4) Rhabdomyolysis: Status: Acute Plan d#5 52yo homeless M with anxiety + depression, opioid dependence, PTSD presenting with BLE weakness after immobility x3d, admitted for OLIVIA due to rhabdomyolysis; was down for estimated 2-3d # OLIVIA due to rhabdomyolysis - CPK down. Nephro following. started HD 09/01/22. reassess daily with BMP. # weakness - question of flexion myelopathy remains and per Neuro will do MRI of T-sine # toxic-metabolic encephaloapthy - MRI findings reviewed with Radiology + Neurology, suspect due to cocaine # hyperK - resolved p 1 dose [facility] [place] # frostbite - passive rewarming, Surgery consulted + following; monitor for necrosis # polysubstance abuse - Addiction Medicine consulted- declined MAT # mood disorder - continue bupropion [renally dosed], clonazepam, mirtapazine, olanzapine, sertraline, trazodone # homelessness - CM consult # VTE ppx: UFH # dispo: will need STR In my clinical judgment, the patient requires continued inpatient hospitalization for the following reasons: IV fluids, HD Time Spent With Patient Time: Total time managing care of this patient today _50___ minutes. Quality Stroke Does the patient have a stroke diagnosis?: No VTE Prior VTE?: No VTE Risk Level:: Medical - moderate - high VTE Device Contraindication: Treatment Not Indicated VTE Drug Contraindication: N/A - Med Ordered
[2022-09-03 15:44] VITALS: BP 137/83; PULSE 96; RESP 18; TEMP 36; O2SAT 89
[2022-09-03 19:20] VITALS: BP 144/74; PULSE 94; RESP 18; TEMP 36.2; O2SAT 90
[2022-09-03] MEDS: traZODone HCL 100 MG TABLET PO (20:06)
[2022-09-03] MEDS: OLANZapine 10 MG TABLET 20 MG PO (20:06)
[2022-09-03] MEDS: Mirtazapine 30 MG TABLET PO (20:06)
[2022-09-03] MEDS: 0.9 % Sodium Chloride Flush 3 ML SYRINGE IVFLUSH (20:07)
[2022-09-03 23:02] VITALS: BP 125/69; PULSE 100; RESP 20; TEMP 36.1; O2SAT 90
[2022-09-04] VITALS (7 sets, daily range): BP systolic 136–161; BP diastolic 79–90; PULSE 72–109; RESP 16–20; TEMP 36.7–37.4; O2SAT 90–96
[2022-09-04] MEDS: Sodium Bicarbonate 8.4% 150 MEQ in Dextrose 5 % 850 ML 100 MEQ IV ×2 (01:11→14:59)
[2022-09-04] MEDS: Morphine Sulfate 4 MG/ML CARTRIDGE IVPUSH ×5 (01:14→22:21)
[2022-09-04 04:06] LABS: HBS Num1 19.32 mIU/mL (0-7.99); HBc Num1 5.32 S/CO (0.00-0.79); HBsAGNum1 0.39 S/CO (0.00-0.99); HIV AB/AG Nonreactive (Nonreactive); HIV Num 1 0.06 S/CO (0.00-0.99); Hepatitis B Surface Antigen Negative (Negative); ~Hepatitis B Surface Antibody REACTIVE (Nonreactive)
[2022-09-04 04:07] LABS: ~HepC Num1 2.17 S/CO (0.00-0.79); ~Hepatitis C Antibody Reactive (Nonreactive)
[2022-09-04 05:13] LABS: HBc Num2 5.67 S/CO; HBc Num3 5.51 S/CO; Hepatitis B Core Antibody Reactive (Nonreactive)
[2022-09-04] MEDS: Sertraline HCL 50 MG TABLET 150 MG PO (07:52)
[2022-09-04] MEDS: clonazePAM 1 MG TABLET PO ×2 (07:52→19:59)
[2022-09-04] MEDS: Heparin Sodium,Porcine 5,000 UNIT/ML VIAL 5000 UNIT SUBCUT ×2 (07:52→20:00)
[2022-09-04] MEDS: 0.9 % Sodium Chloride Flush 3 ML SYRINGE IVFLUSH (08:01)
[2022-09-04 08:08] LABS: Anion Gap 25 (12-20); Blood Urea Nitrogen 134 mg/dL (9-16); Calcium 6.8 mg/dL (8.4-10.2); Carbon Dioxide 31 mmol/L (22-29); Chloride 88 mmol/L (96-108); Creatinine Clr Calc Pharmacy 8.7; Estimated Glomerular Filt Rate 5; Glucose Random 107 mg/dL (60-115); Potassium 5.1 mmol/L (3.3-5.1); Sodium 139 mmol/L (135-145)
--- NOTE | 2022-09-04 10:59 | PM.PNNEP ---
Subjective Subjective Date of Service: 09/04/22 Interval history: CPK still coming down but SCr still >10 Pain/swelling of toes/fingers Physical Exam Vital Signs: Vital Signs: Last Vital Signs Temp 98.6 F 09/04/22 10:55 Pulse 92 09/04/22 10:55 Resp 20 09/04/22 10:55 BP 142/85 H 09/04/22 10:55 Pulse Ox 95 09/04/22 10:55 O2 Del Method Nasal Cannula 09/04/22 10:55 O2 Flow Rate 2 09/04/22 10:55 BMI result Body Mass Index 32.5 Const: General: No confusion Orientation/consciousness: No confusion Neuro: General: No confusion Objective Data Labs 09/03/22 06:32 09/04/22 06:42 Labs: Laboratory Results - last 24 hr 09/02/22 09/02/22 09/04/22 06:22 06:22 06:42 Sodium 139 Potassium 5.1 Chloride 88 L Carbon Dioxide 31 H Anion Gap 25 H BUN 134 H Creatinine 11.53 H* Estim Creat Clear Calc 8.7 Estimated GFR 5 Random Glucose 107 Calcium 6.8 L Total Creatine Kinase 3213 H Hep Bs Antigen Negative Hep Bs Antibody REACTIVE Hep B Core Total Ab Reactive Hep B Core IgM Ab Cancelled Hepatitis C Ab (EIA) Reactive H HIV 1&2 Ab/P24 Ag 4thGn Nonreactive Microbiology Microbiology Results: Microbiology 08/30/22 21:00 Blood - Venous Blood Culture - Preliminary No growth after 48 hours. 08/30/22 21:00 Blood - Venous Blood Culture - Preliminary No growth after 48 hours. Procedures Date of Service Date of Service: 09/04/22 Assessment & Plan Assessment and plan (1) OLIVIA (acute kidney injury): Status: Acute (2) Rhabdomyolysis: Status: Acute (3) Metabolic acidosis: Status: Acute Plan s/p HD on Sunday s/p temporary dialysis catheter placement no improvement in kidney function heme pigment nephrotoxicity normal baseline kidney function REC HD again tomorrow follow cpk monitor urine output follow kidney function and electrolytes Time Spent With Patient Time: Total time managing care of this patient today ____ minutes. Progress Note: Quality Stroke Does the patient have a stroke diagnosis?: No
--- NOTE | 2022-09-04 11:03 | P.CDIM_ITS ---
PROVIDER RESPONSE TEXT: To clarify, the appropriate diagnosis supported by the clinical indicators: Right internal jugular vein: talk to IR QUERY TEXT: PHYSICIAN'S DOCUMENTATION REQUEST Date of Query: 09/04/2022 10:27 AM EDT Patient Name: Quintin Heard Admit Date: 08/31/2022 Dear Margie Elizabeth, A review of the medical record indicates additional documentation may be needed. Please review below and update the documentation accordingly. Clinical Indicators: Per IR note 09/01/22: non-tunneled temporary dialysis catheter inserted into the right jugular vein with its tip in the SVC The following diagnoses or signs and symptoms were noted in the patient record: Based on the above, could you clarify the specificity of the vein Right internal jugular vein Right external jugular vein Condition 3 (please specify) Labs indicate a diagnosis of (please specify) Other (explain) Clinically unable to determine (explain) Thank you, Ivelisse Malin RN Use of terms such as suspected, likely, concern for, or probable (associated with a specific diagnosi s that is being evaluated, monitored, or treated as if it exists) are acceptable and can be coded in the inpatient se tting, when documented at the time of discharge. Please use your independent medical judgment in providing your response. THIS QUERY IS PART OF THE PERMANENT MEDICAL RECORD
--- NOTE | 2022-09-04 11:49 | P.PNIM_ITS ---
Subjective Subjective Date of Service: 09/04/22 Interval History: SCr worse CPK improved pain in feet controlled still very weak Review of Systems Review of Systems: Yes all other systems are reviewed and are negative Physical Exam Vital Signs: Vital Signs: Last Vital Signs Temp 98.6 F 09/04/22 10:55 Pulse 92 09/04/22 10:55 Resp 20 09/04/22 10:55 BP 142/85 H 09/04/22 10:55 Pulse Ox 95 09/04/22 10:55 O2 Del Method Nasal Cannula 09/04/22 10:55 O2 Flow Rate 2 09/04/22 10:55 BMI result Body Mass Index 32.5 Gen: NAD HEENT: sclera anicteric, moist mucus membranes Neck: supple Lungs: clear to auscultation bilaterally Heart: regular rate and rhythm, no murmurs Abd: soft, non-tender, non-distended Ext: swollen fingers and toes bilaterally Skin: dark bluish discoloration of distal aspect of toes bilaterally with clear fluid-filled blisters Neuro: alert and oriented x3, BLE strength 1/5, BUE strength 3/5 Psych: appropriate affect Objective Data Active Medications Acetaminophen (Acetaminophen 325 Mg Tablet) 650 mg PO Q6H PRN PRN Reason: Pain, Mild (Pain Scale 1-3) Bupropion HCl (Bupropion Hcl 100 Mg Tablet) 150 mg PO Q72H REPLACED BY [facility] Last Admin: 09/03/22 07:57 Dose: 150 mg Documented By: CELIA Calcium Carbonate (Calcium Carbonate 500 Mg Tablet) 500 mg PO TID REPLACED BY [facility] Last Admin: 09/04/22 10:15 Dose: 500 mg Documented By: KINZA Clonazepam (Clonazepam 1 Mg Tablet) 1 mg PO BID REPLACED BY [facility] Last Admin: 09/04/22 07:52 Dose: 1 mg Documented By: KINZA Heparin Sodium (Porcine) (Heparin Sodium,Porcine 5,000 Unit/Ml Vial) 5,000 unit SUBCUT BID REPLACED BY [facility] Last Admin: 09/04/22 07:52 Dose: 5,000 unit Documented By: KINZA Hydroxyzine HCl (Hydroxyzine Hcl 50 Mg Tablet) 50 mg PO BID PRN PRN Reason: Anxiety Sodium Bicarbonate 150 meq/ (Dextrose) 1,000 mls @ 100 mls/hr IV .Q10H REPLACED BY [facility] Last Admin: 09/04/22 10:15 Dose: Not Given Documented By: KINZA Non-Admin Reason: IV Running Mirtazapine (Mirtazapine 30 Mg Tablet) 30 mg PO BEDTIME REPLACED BY [facility] Last Admin: 09/03/22 20:06 Dose: 30 mg Documented By: JI Morphine Sulfate (Morphine Sulfate 4 Mg/Ml Cartridge) 4 mg IVPUSH Q4H PRN; Protocol PRN Reason: Pain, Severe (Pain Scale 7-10) Last Admin: 09/04/22 07:53 Dose: 4 mg Documented By: KINZA Olanzapine (Olanzapine 10 Mg Tablet) 20 mg PO BEDTIME REPLACED BY [facility] Last Admin: 09/03/22 20:06 Dose: 20 mg Documented By: JI Ondansetron HCl (Ondansetron Hcl 4 Mg/2 Ml Vial) 4 mg IVPUSH Q8H PRN PRN Reason: Nausea and Vomiting Sertraline HCl (Sertraline Hcl 50 Mg Tablet) 150 mg PO DAILY REPLACED BY [facility] Last Admin: 09/04/22 07:52 Dose: 150 mg Documented By: KINZA Sodium Chloride (0.9 % Sodium Chloride Flush 3 Ml Syringe) 3 ml IVFLUSH QSHIFT REPLACED BY [facility] Last Admin: 09/04/22 08:01 Dose: 3 ml Documented By: KINZA Trazodone HCl (Trazodone Hcl 100 Mg Tablet) 100 mg PO BEDTIME REPLACED BY [facility] Last Admin: 09/03/22 20:06 Dose: 100 mg Documented By: JI Labs 09/03/22 06:32 09/04/22 06:42 Labs: Laboratory Results - last 24 hr 09/02/22 09/02/22 09/04/22 06:22 06:22 06:42 Anion Gap 25 H Estim Creat Clear Calc 8.7 Estimated GFR 5 Random Glucose 107 Calcium 6.8 L Total Creatine Kinase 3213 H Hep Bs Antigen Negative Hep Bs Antibody REACTIVE Hep B Core Total Ab Reactive Hep B Core IgM Ab Cancelled Hepatitis C Ab (EIA) Reactive H HIV 1&2 Ab/P24 Ag 4thGn Nonreactive Assessment and Plan (1) Frostbite: Status: Acute (2) Hyperkalemia: Status: Acute (3) OLIVIA (acute kidney injury): Status: Acute (4) Rhabdomyolysis: Status: Acute Plan d#6 52yo homeless M with anxiety + depression, opioid dependence, PTSD presenting with severe BLE weakness after immobility x3d, admitted for OLIVIA due to rhabdomyolysis; was down for estimated 2-3d # OLIVIA due to rhabdomyolysis - CPK coming down but no renal recovery yet. Nephro following. started HD 09/01/22 + 09/02/22 and will undergo HD again today. reassess daily with BMP. # weakness - question of flexion myelopathy remains and per Neuro will do MRI of T-spine today # toxic-metabolic encephaloapthy - MRI brain findings reviewed with Radiology + Neurology, suspect due to cocaine-induced encephalopathy # hyperK - resolved p 1 dose [facility] # frostbite - passive rewarming, Surgery consulted + following; continue to monitor for necrosis # polysubstance abuse - Addiction Medicine consulted- declined MAT # mood disorder - continue bupropion [renally dosed], clonazepam, mirtapazine, olanzapine, sertraline, trazodone # homelessness - CM consult # VTE ppx: UFH # dispo: will need prolonged rehab In my clinical judgment, the patient requires continued inpatient hospitalization for the following reasons: IV fluids, HD Time Spent With Patient Time: Total time managing care of this patient today _40___ minutes. Quality Stroke Does the patient have a stroke diagnosis?: No VTE Prior VTE?: No VTE Risk Level:: Medical - moderate - high VTE Device Contraindication: Treatment Not Indicated VTE Drug Contraindication: N/A - Med Ordered
--- NOTE | 2022-09-04 13:20 | MHC.CM.PN ---
per rounds pt not ready today needs an mri and moew dialysis
[2022-09-04] MEDS: OLANZapine 10 MG TABLET 20 MG PO (19:59)
[2022-09-04] MEDS: traZODone HCL 100 MG TABLET PO (19:59)
[2022-09-04] MEDS: Mirtazapine 30 MG TABLET PO (19:59)
[2022-09-05] VITALS (7 sets, daily range): BP systolic 144–161; BP diastolic 83–98; PULSE 94–99; RESP 16–18; TEMP 36.3–36.7; O2SAT 94–97; BMI 36.1
[2022-09-05] MEDS: Sodium Bicarbonate 8.4% 150 MEQ in Dextrose 5 % 850 ML 100 MEQ IV ×2 (00:47→08:40)
[2022-09-05] MEDS: 0.9 % Sodium Chloride Flush 3 ML SYRINGE IVFLUSH (00:47)
[2022-09-05] MEDS: Morphine Sulfate 4 MG/ML CARTRIDGE IVPUSH ×4 (04:03→21:28)
[2022-09-05 06:44] LABS: Hematocrit 33.9 % (42.0-52.0); Hemoglobin 11.5 g/dl (14.0-18.0); Mean Corpuscular HGB Conc 33.9 g/dl (31.0-36.0); Mean Corpuscular Hemoglobin 28.5 pg (27.0-33.0); Mean Corpuscular Volume 83.9 fL (80.0-98.0); Mean Platelet Volume 9.7 fL (9.4-12.4); Platelet Count 213 X10*3/uL (160-400); Red Blood Count 4.04 X10*6/uL (4.60-5.80); Red Cell Distribution Width 15.1 % (11.0-16.0); White Blood Count 13.5 X10*3/uL (4.8-10.8)
[2022-09-05 07:30] LABS: Alanine Aminotransferase 96 U/L (0-40); Albumin Level 2.2 g/dL (3.5-5.0); Alkaline Phosphatase 92 U/L (39-117); Aspartate Amino Transferase 40 U/L (5-37); Bilirubin Total 0.5 mg/dL (0.0-1.0); Calcium 6.7 mg/dL (8.4-10.2); Creatinine Clr Calc Pharmacy 8.4; Estimated Glomerular Filt Rate 4; Glucose Random 112 mg/dL (60-115); Total Protein 4.2 g/dL (6.5-8.0)
[2022-09-05 07:43] LABS: Anion Gap 26 (12-20); Blood Urea Nitrogen 141 mg/dL (9-16); Carbon Dioxide 36 mmol/L (22-29); Chloride 83 mmol/L (96-108); Potassium 4.7 mmol/L (3.3-5.1); Sodium 140 mmol/L (135-145)
--- NOTE | 2022-09-05 07:51 | PM.PNGS ---
Subjective Subjective Date of Service: 09/05/22 Interval history: Patient reporting foot pain bilaterally. Able to move legs at the knee but not move feet or toes. Physical Exam Vital Signs: Vital Signs: Last Vital Signs Temp 97.3 F 09/05/22 07:27 Pulse 98 09/05/22 07:27 Resp 16 09/05/22 07:27 BP 155/85 H 09/05/22 07:27 Pulse Ox 94 09/05/22 07:27 O2 Del Method Nasal Cannula 09/05/22 07:27 O2 Flow Rate 1 09/05/22 07:27 BMI result Body Mass Index 36.1 Const: General: no acute distress Resp: Effort & Inspection: normal respiratory effort Extrem: Other: Continued bullous changes bilaterally in the feet with dry gangrene of the tips of the left toes especially great toe, and to a lesser degree the right foot. Wounds seem to be demarcating at the distal phalanx especially on the left side. No cellulitis or abscess appreciated. Objective Data Active Medications Acetaminophen (Acetaminophen 325 Mg Tablet) 650 mg PO Q6H PRN PRN Reason: Pain, Mild (Pain Scale 1-3) Bupropion HCl (Bupropion Hcl 100 Mg Tablet) 150 mg PO Q72H [facility] Last Admin: 09/03/22 07:57 Dose: 150 mg Documented By: CELIA Calcium Carbonate (Calcium Carbonate 500 Mg Tablet) 500 mg PO TID [facility] Last Admin: 09/04/22 19:59 Dose: 500 mg Documented By: KINZA Clonazepam (Clonazepam 1 Mg Tablet) 1 mg PO BID [facility] Last Admin: 09/04/22 19:59 Dose: 1 mg Documented By: KINZA Heparin Sodium (Porcine) (Heparin Sodium,Porcine 5,000 Unit/Ml Vial) 5,000 unit SUBCUT BID [facility] Last Admin: 09/04/22 20:00 Dose: 5,000 unit Documented By: KINZA Hydroxyzine HCl (Hydroxyzine Hcl 50 Mg Tablet) 50 mg PO BID PRN PRN Reason: Anxiety Sodium Bicarbonate 150 meq/ (Dextrose) 1,000 mls @ 100 mls/hr IV .Q10H [facility] Last Admin: 09/05/22 00:47 Dose: 100 mls/hr Documented By: ISAIAH Mirtazapine (Mirtazapine 30 Mg Tablet) 30 mg PO BEDTIME [facility] Last Admin: 09/04/22 19:59 Dose: 30 mg Documented By: KINZA Morphine Sulfate (Morphine Sulfate 4 Mg/Ml Cartridge) 4 mg IVPUSH Q4H PRN; Protocol PRN Reason: Pain, Severe (Pain Scale 7-10) Last Admin: 09/05/22 04:03 Dose: 4 mg Documented By: ISAIAH Olanzapine (Olanzapine 10 Mg Tablet) 20 mg PO BEDTIME [facility] Last Admin: 09/04/22 19:59 Dose: 20 mg Documented By: KINZA Ondansetron HCl (Ondansetron Hcl 4 Mg/2 Ml Vial) 4 mg IVPUSH Q8H PRN PRN Reason: Nausea and Vomiting Sertraline HCl (Sertraline Hcl 50 Mg Tablet) 150 mg PO DAILY [facility] Last Admin: 09/04/22 07:52 Dose: 150 mg Documented By: KINZA Sodium Chloride (0.9 % Sodium Chloride Flush 3 Ml Syringe) 3 ml IVFLUSH QSHIFT [facility] Last Admin: 09/05/22 07:33 Dose: Not Given Documented By: TONY-BLANCAFA Non-Admin Reason: See Note Trazodone HCl (Trazodone Hcl 100 Mg Tablet) 100 mg PO BEDTIME [facility] Last Admin: 09/04/22 19:59 Dose: 100 mg Documented By: KINZA Labs 09/05/22 06:07 09/05/22 06:07 Labs: Laboratory Results - last 24 hr 09/04/22 09/05/22 09/05/22 06:42 06:07 06:07 MCV 83.9 MCH 28.5 MCHC 33.9 RDW 15.1 Plt Count 213 MPV 9.7 Absolute Nucleated RBC 0.000 Nucleated RBC % (auto) 0.0 Anion Gap 25 H 26 H Estim Creat Clear Calc 8.7 8.4 Estimated GFR 5 4 Random Glucose 107 112 Calcium 6.8 L 6.7 L Total Bilirubin 0.5 AST 40 H ALT 96 H Alkaline Phosphatase 92 Total Creatine Kinase 3213 H 2584 H Total Protein 4.2 L Albumin 2.2 L Microbiology Microbiology Results: Microbiology 08/30/22 21:00 Blood Culture - Final Blood - Venous No growth after 5 days. 08/30/22 21:00 Blood Culture - Final Blood - Venous No growth after 5 days. Procedures Date of Service Date of Service: 09/05/22 Progress Note: A&P Assessment and plan (1) Frostbite: Status: Acute Plan Patient with evidence of dry gangrene due to frostbite involving the bilateral feet left greater than right. Bullous changes noted. Will continue to monitor; no surgical intervention required at this time. Time Spent With Patient Time: Total time managing care of this patient today ____ minutes. Quality Stroke Does the patient have a stroke diagnosis?: No VTE Prior VTE?: No VTE Risk Level:: Medical - moderate - high VTE Device Contraindication: Treatment Not Indicated VTE Drug Contraindication: N/A - Med Ordered
[2022-09-05] MEDS: Sertraline HCL 50 MG TABLET 150 MG PO (08:41)
[2022-09-05] MEDS: clonazePAM 1 MG TABLET PO ×2 (08:41→21:30)
[2022-09-05] MEDS: Heparin Sodium,Porcine 5,000 UNIT/ML VIAL 5000 UNIT SUBCUT ×2 (08:41→21:30)
[2022-09-05] MEDS: Acetaminophen 325 MG TABLET 650 MG PO ×2 (08:41→17:24)
--- NOTE | 2022-09-05 09:13 | PM.PNNEP ---
Subjective Subjective Date of Service: 09/05/22 Interval history: Events noted. Creatinine continues to increase. Physical Exam Vital Signs: Vital Signs: Last Vital Signs Temp 97.3 F 09/05/22 07:27 Pulse 98 09/05/22 07:27 Resp 16 09/05/22 07:27 BP 155/85 H 09/05/22 07:27 Pulse Ox 94 09/05/22 07:27 O2 Del Method Nasal Cannula 09/05/22 07:27 O2 Flow Rate 1 09/05/22 07:27 BMI result Body Mass Index 36.1 Const: General: No confusion Orientation/consciousness: No confusion Neuro: General: No confusion Objective Data Labs 09/05/22 06:07 09/05/22 06:07 Labs: Laboratory Results - last 24 hr 09/05/22 09/05/22 06:07 06:07 WBC 13.5 H RBC 4.04 L Hgb 11.5 L Hct 33.9 L MCV 83.9 MCH 28.5 MCHC 33.9 RDW 15.1 Plt Count 213 MPV 9.7 Absolute Nucleated RBC 0.000 Nucleated RBC % (auto) 0.0 Sodium 140 Potassium 4.7 Chloride 83 L Carbon Dioxide 36 H Anion Gap 26 H BUN 141 H Creatinine 12.61 H* Estim Creat Clear Calc 8.4 Estimated GFR 4 Random Glucose 112 Calcium 6.7 L Total Bilirubin 0.5 AST 40 H ALT 96 H Alkaline Phosphatase 92 Total Creatine Kinase 2584 H Total Protein 4.2 L Albumin 2.2 L Microbiology Microbiology Results: Microbiology 08/30/22 21:00 Blood - Venous Blood Culture - Final No growth after 5 days. 08/30/22 21:00 Blood - Venous Blood Culture - Final No growth after 5 days. Procedures Date of Service Date of Service: 09/05/22 Assessment & Plan Assessment and plan (1) OLIVIA (acute kidney injury): Status: Acute (2) Rhabdomyolysis: Status: Acute (3) Metabolic acidosis: Status: Acute Plan s/p HD on Sunday s/p temporary dialysis catheter placement no improvement in kidney function heme pigment nephrotoxicity normal baseline kidney function REC HD today. follow cpk monitor urine output and watch for renal recovery. If renal function does not improve he will need a PermCath. Vascular to follow up follow kidney function and electrolytes Time Spent With Patient Time: Total time managing care of this patient today ____ minutes. Progress Note: Quality Stroke Does the patient have a stroke diagnosis?: No
--- NOTE | 2022-09-05 12:14 | P.PNIM_ITS ---
Subjective Subjective Date of Service: 09/06/22 Interval History: Being followed for OLIVIA/weakness and frostbite, patient feels discouraged since unable to move, denies foot pain, tolerating diet no nausea no vomiting no abdominal pain, no acute overnight events participating with physical therapy and OT Review of Systems Review of Systems: Yes all other systems are reviewed and are negative Physical Exam Vital Signs: Vital Signs: Last Vital Signs Temp 97.3 F 09/05/22 07:27 Pulse 98 09/05/22 09:22 Resp 16 09/05/22 07:27 BP 155/85 H 09/05/22 09:22 Pulse Ox 94 09/05/22 09:22 O2 Del Method Nasal Cannula 09/05/22 07:27 O2 Flow Rate 1 09/05/22 07:27 BMI result Body Mass Index 36.1 Const: Other: Gen: Awake alert resting in bed no acute distress HEENT: sclera anicteric, moist mucus membranes Neck: supple, no JVD Lungs: clear to auscultation bilaterally, no wheeze, no crackles Heart: regular rate and rhythm, no murmurs Abd: soft, non-tender, non-distended, bowel sounds audible Ext: swollen fingers and toes bilaterally Skin: dark bluish discoloration of distal aspect of toes bilaterally with clear fluid-filled multiple blisters Neuro: alert and oriented x3, BLE strength 1/5, BUE strength 3/5 Psych: appropriate affect Objective Data Active Medications Acetaminophen (Acetaminophen 325 Mg Tablet) 650 mg PO Q6H PRN PRN Reason: Pain, Mild (Pain Scale 1-3) Last Admin: 09/05/22 08:41 Dose: 650 mg Documented By: [facility] Bupropion HCl (Bupropion Hcl 100 Mg Tablet) 150 mg PO Q72H [facility] Last Admin: 09/03/22 07:57 Dose: 150 mg Documented By: FOGARTB Calcium Carbonate (Calcium Carbonate 500 Mg Tablet) 500 mg PO TID [facility] Last Admin: 09/05/22 08:41 Dose: 500 mg Documented By: [facility] Clonazepam (Clonazepam 1 Mg Tablet) 1 mg PO BID [facility] Last Admin: 09/05/22 08:41 Dose: 1 mg Documented By: [facility] Heparin Sodium (Porcine) (Heparin Sodium,Porcine 5,000 Unit/Ml Vial) 5,000 unit SUBCUT BID [facility] Last Admin: 09/05/22 08:41 Dose: 5,000 unit Documented By: TONY-LUIZ Hydroxyzine HCl (Hydroxyzine Hcl 50 Mg Tablet) 50 mg PO BID PRN PRN Reason: Anxiety Sodium Bicarbonate 150 meq/ (Dextrose) 1,000 mls @ 100 mls/hr IV .Q10H [facility] Last Admin: 09/05/22 08:40 Dose: 100 mls/hr Documented By: TONY-LUIZ Mirtazapine (Mirtazapine 30 Mg Tablet) 30 mg PO BEDTIME [facility] Last Admin: 09/04/22 19:59 Dose: 30 mg Documented By: KINZA Morphine Sulfate (Morphine Sulfate 4 Mg/Ml Cartridge) 4 mg IVPUSH Q4H PRN; Protocol PRN Reason: Pain, Severe (Pain Scale 7-10) Last Admin: 09/05/22 08:41 Dose: 4 mg Documented By: [facility] Olanzapine (Olanzapine 10 Mg Tablet) 20 mg PO BEDTIME [facility] Last Admin: 09/04/22 19:59 Dose: 20 mg Documented By: KINZA Ondansetron HCl (Ondansetron Hcl 4 Mg/2 Ml Vial) 4 mg IVPUSH Q8H PRN PRN Reason: Nausea and Vomiting Sertraline HCl (Sertraline Hcl 50 Mg Tablet) 150 mg PO DAILY [facility] Last Admin: 09/05/22 08:41 Dose: 150 mg Documented By: TONY-LUIZ Sodium Chloride (0.9 % Sodium Chloride Flush 3 Ml Syringe) 3 ml IVFLUSH QSHIFT [facility] Last Admin: 09/05/22 07:33 Dose: Not Given Documented By: [facility] Non-Admin Reason: See Note Trazodone HCl (Trazodone Hcl 100 Mg Tablet) 100 mg PO BEDTIME [facility] Last Admin: 09/04/22 19:59 Dose: 100 mg Documented By: KINZA Labs 09/05/22 06:07 09/05/22 06:07 Labs: Laboratory Results - last 24 hr 09/05/22 09/05/22 06:07 06:07 MCV 83.9 MCH 28.5 MCHC 33.9 RDW 15.1 Plt Count 213 MPV 9.7 Absolute Nucleated RBC 0.000 Nucleated RBC % (auto) 0.0 Anion Gap 26 H Estim Creat Clear Calc 8.4 Estimated GFR 4 Random Glucose 112 Calcium 6.7 L Total Bilirubin 0.5 AST 40 H ALT 96 H Alkaline Phosphatase 92 Total Creatine Kinase 2584 H Total Protein 4.2 L Albumin 2.2 L Microbiology Microbiology Results: Microbiology 08/30/22 21:00 Blood Culture - Final Blood - Venous No growth after 5 days. 08/30/22 21:00 Blood Culture - Final Blood - Venous No growth after 5 days. Assessment and Plan (1) Frostbite: Status: Acute (2) Hyperkalemia: Status: Acute (3) OLIVIA (acute kidney injury): Status: Acute (4) Rhabdomyolysis: Status: Acute Plan d#6 52yo homeless M with anxiety + depression, opioid dependence, PTSD presenting with severe BLE weakness after immobility x3d, admitted for OLIVIA due to rhabdomyolysis; was down for estimated 2-3d # OLIVIA due to rhabdomyolysis - no renal recovery noted, elevated creatinine, case discussed with Nephrology will undergo hemodialysis today, CPK coming down but no renal recovery yet. started HD 09/01/22 + 09/02/22 and will undergo HD again today. Follow daily BMP. # weakness - question of flexion myelopathy remains, MRI thoracic spine showed extensive T2 signal change involving the paraspinal musculature possibly sequela of rhabdomyolysis no definite thoracic cord signal changes noted. 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 # polysubstance abuse - Addiction Medicine consulted- declined MAT # mood disorder - continue bupropion [renally dosed], clonazepam, mirtapazine, olanzapine, s ertraline,and trazodone # VTE ppx: UFH # dispo: will need prolonged rehab In my clinical judgment, the patient requires continued inpatient hospitalization for the following reasons: HD Time Spent With Patient Time: Total time managing care of this patient today ____ minutes. Quality Stroke Does the patient have a stroke diagnosis?: No VTE Prior VTE?: No VTE Risk Level:: Medical - moderate - high VTE Device Contraindication: Treatment Not Indicated VTE Drug Contraindication: N/A - Med Ordered
[2022-09-05 14:59] LABS: HCV Log PCR <1.18 NOT DETECTED Log IU/mL (NOT DETECTED); HepC Viral Load <15 NOT DETECTED IU/mL (NOT DETECTED)
[2022-09-05] MEDS: OLANZapine 10 MG TABLET 20 MG PO (21:30)
[2022-09-05] MEDS: Mirtazapine 30 MG TABLET PO (21:30)
[2022-09-05] MEDS: traZODone HCL 100 MG TABLET PO (21:30)
[2022-09-06] MEDS: Sodium Bicarbonate 8.4% 150 MEQ in Dextrose 5 % 850 ML 100 MEQ IV (00:45)
[2022-09-06 03:15] VITALS: BP 139/80; PULSE 102; RESP 18; TEMP 36.3; O2SAT 97
[2022-09-06 06:00] VITALS: BMI 35.7
[2022-09-06 07:09] VITALS: BP 148/81; PULSE 96; RESP 17; TEMP 36.6; O2SAT 96
[2022-09-06] MEDS: buPROPion HCL 100 MG TABLET 150 MG PO (07:44)
[2022-09-06] MEDS: Sertraline HCL 50 MG TABLET 150 MG PO (07:45)
[2022-09-06] MEDS: clonazePAM 1 MG TABLET PO ×2 (07:45→20:30)
[2022-09-06] MEDS: Heparin Sodium,Porcine 5,000 UNIT/ML VIAL 5000 UNIT SUBCUT ×2 (07:45→20:31)
[2022-09-06] MEDS: Morphine Sulfate 4 MG/ML CARTRIDGE IVPUSH (07:46)
[2022-09-06] MEDS: 0.9 % Sodium Chloride Flush 3 ML SYRINGE IVFLUSH ×2 (07:48→14:30)
[2022-09-06] MEDS: Acetaminophen 325 MG TABLET 650 MG PO ×3 (08:42→22:02)
--- NOTE | 2022-09-06 09:17 | PM.PNNEP ---
Subjective Subjective Date of Service: 09/06/22 Interval history: Events noted. Creatinine continues to increase. Had dialysis yesterday and uneventful Physical Exam Vital Signs: Vital Signs: Last Vital Signs Temp 97.9 F 09/06/22 07:09 Pulse 96 09/06/22 07:09 Resp 17 09/06/22 07:09 BP 148/81 H 09/06/22 07:09 Pulse Ox 96 09/06/22 07:09 O2 Del Method Nasal Cannula 09/06/22 07:09 O2 Flow Rate 2 09/06/22 07:09 BMI result Body Mass Index 35.7 Const: General: no acute distress; No confusion Orientation/consciousness: No confusion HEENT: Head: Yes normocephalic and Yes atraumatic Neck: Neck: Yes supple Resp: Auscultation: clear to auscultation bilaterally Cardio: Heart sounds: S1 normal heart sound present and S2 normal heart sound present GI: Palpation (GI): Soft to palpation and nontender Neuro: General: No confusion Extrem: General: Yes edema Objective Data Labs 09/05/22 06:07 09/05/22 06:07 Labs: Laboratory Results - last 24 hr 09/04/22 15:00 Hep C Viral Load <15 NOT DETECTED Hep C Viral Load Log <1.18 NOT DETECTED Microbiology Microbiology Results: Microbiology 08/30/22 21:00 Blood - Venous Blood Culture - Final No growth after 5 days. 08/30/22 21:00 Blood - Venous Blood Culture - Final No growth after 5 days. Procedures Date of Service Date of Service: 09/06/22 Assessment & Plan Assessment and plan (1) OLIVIA (acute kidney injury): Status: Acute (2) Rhabdomyolysis: Status: Acute (3) Metabolic acidosis: Status: Acute Plan s/p HD on Sunday s/p temporary dialysis catheter placement no improvement in kidney function heme pigment nephrotoxicity normal baseline kidney function REC HD again tomorrow 09/07/2022 follow cpk monitor urine output and watch for renal recovery. If renal function does not improve he will need a PermCath. Vascular to follow up follow kidney function and electrolytes Time Spent With Patient Time: Total time managing care of this patient today ____ minutes. Progress Note: Quality Stroke Does the patient have a stroke diagnosis?: No
--- NOTE | 2022-09-06 10:20 | MHC.CM.PN ---
Per ROUNDS discussion, Patient is not yet medically cleared for dc (HD today); PT rec STR and [facility] is following. CM will follow.
[2022-09-06 11:15] VITALS: BP 148/81; PULSE 96; O2SAT 96
[2022-09-06 11:54] VITALS: BP 140/80; PULSE 90; RESP 17; TEMP 36.8; O2SAT 97
--- NOTE | 2022-09-06 12:15 | PC.NURSE ---
Pt alert and oriented x4. C/O 10/10 headache and bilateral feet pain. PRN Morphine given for feet pain and Tylenol for headache with some effect. Bilateral toes gangrene and scattered blisters. Feet elvated on pillows
[2022-09-06] MEDS: oxyCODONE HCl Immed Release 5 MG TABLET PO ×3 (13:17→22:02)
[2022-09-06 14:57] VITALS: BP 131/62; PULSE 106; RESP 18; TEMP 36.6; O2SAT 92
--- NOTE | 2022-09-06 15:45 | HO.PM.IMPN ---
Subjective Subjective Date of Service: 09/06/22 Interval History: Complaining of headache this morning, concern about ongoing weakness, denies foot pain no other acute issues overnight. Review of Systems Review of Systems: Yes all other systems are reviewed and are negative Physical Exam Vital Signs: Vital Signs: Last Vital Signs Temp 97.8 F 09/06/22 14:57 Pulse 106 H 09/06/22 14:57 Resp 18 09/06/22 14:57 BP 131/62 09/06/22 14:57 Pulse Ox 92 09/06/22 14:57 O2 Del Method Room Air 09/06/22 14:57 O2 Flow Rate 2 09/06/22 11:54 BMI result Body Mass Index 35.7 Const: Other: Gen:? Awake alert resting in bed, no acute distress Neck: supple, no JVD Lungs: clear to auscultation bilaterally, no wheeze, no crackles Heart: regular rate and rhythm, no murmurs Abd: soft, non-tender, non-distended, bowel sounds audible Ext: swollen fingers and toes bilaterally Skin: dark bluish discoloration of distal aspect of toes bilaterally with clear fluid-filled multiple blisters Neuro: alert and oriented x3, BLE strength 1/5, BUE strength 3/5 Psych: appropriate affect for Objective Data Active Medications Acetaminophen (Acetaminophen 325 Mg Tablet) 650 mg PO Q6H PRN PRN Reason: Pain, Mild (Pain Scale 1-3) Last Admin: 09/06/22 15:36 Dose: 650 mg Documented By: TREY Bupropion HCl (Bupropion Hcl 100 Mg Tablet) 150 mg PO Q72H [facility] Last Admin: 09/06/22 07:44 Dose: 150 mg Documented By: MARGIE Calcium Carbonate (Calcium Carbonate 500 Mg Tablet) 500 mg PO TID [facility] Last Admin: 09/06/22 14:30 Dose: 500 mg Documented By: FIFI Clonazepam (Clonazepam 1 Mg Tablet) 1 mg PO BID [facility] Last Admin: 09/06/22 07:45 Dose: 1 mg Documented By: MARGIE Heparin Sodium (Porcine) (Heparin Sodium,Porcine 5,000 Unit/Ml Vial) 5,000 unit SUBCUT BID [facility] Last Admin: 09/06/22 07:45 Dose: 5,000 unit Documented By: HO.NGENOAL Hydroxyzine HCl (Hydroxyzine Hcl 50 Mg Tablet) 50 mg PO BID PRN PRN Reason: Anxiety Mirtazapine (Mirtazapine 30 Mg Tablet) 30 mg PO BEDTIME [facility] Last Admin: 09/05/22 21:30 Dose: 30 mg Documented By: JULIO Olanzapine (Olanzapine 10 Mg Tablet) 20 mg PO BEDTIME [facility] Last Admin: 09/05/22 21:30 Dose: 20 mg Documented By: JULIO Ondansetron HCl (Ondansetron Hcl 4 Mg/2 Ml Vial) 4 mg IVPUSH Q8H PRN PRN Reason: Nausea and Vomiting Oxycodone HCl (Oxycodone Hcl Immed Release 5 Mg Tablet) 5 mg PO Q4H PRN PRN Reason: Pain, Severe (Pain Scale 7-10) Last Admin: 09/06/22 13:17 Dose: 5 mg Documented By: FOSTEKR Sertraline HCl (Sertraline Hcl 50 Mg Tablet) 150 mg PO DAILY [facility] Last Admin: 09/06/22 07:45 Dose: 150 mg Documented By: MARGIE Sodium Chloride (0.9 % Sodium Chloride Flush 3 Ml Syringe) 3 ml IVFLUSH QSHIFT [facility] Last Admin: 09/06/22 14:30 Dose: 3 ml Documented By: FIFI Trazodone HCl (Trazodone Hcl 100 Mg Tablet) 100 mg PO BEDTIME [facility] Last Admin: 09/05/22 21:30 Dose: 100 mg Documented By: JULIO Labs 09/05/22 06:07 09/05/22 06:07 Assessment and Plan (1) Frostbite: Status: Acute (2) Hyperkalemia: Status: Acute (3) OLIVIA (acute kidney injury): Status: Acute (4) Rhabdomyolysis: Status: Acute Plan d#6 52yo homeless M with anxiety + depression, opioid dependence, PTSD presenting with severe BLE weakness after immobility x3d, admitted for OLIVIA due to rhabdomyolysis; was down for estimated 2-3d # OLIVIA due to rhabdomyolysis - no renal recovery noted, elevated creatinine, CPK coming down but no renal recovery yet. started HD 09/01/22 + 09/02/22 and 09/05. Follow daily BMP. Check CPK at a.m. If renal function does not improve patient will need PermCath # weakness - question of flexion myelopathy remains, MRI thoracic spine showed extensive T2 signal change involving the paraspinal musculature possibly sequela of rhabdomyolysis no definite thoracic cord signal changes noted. 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 # hyperK - resolved p 1 dose [facility] # frostbite - passive rewarming, being followed by General surgery no surgical intervention planned ,continue to monitor for necrosis. DC IV morphine, as needed oxycodone add stool softeners # polysubstance abuse - Addiction Medicine consulted- declined MAT # mood disorder - continue bupropion [renally dosed], clonazepam, mirtapazine, olanzapine, sertraline,and trazodone # VTE ppx: UFH # dispo: will need prolonged rehab In my clinical judgment, the patient requires continued inpatient hospitalization for the following reasons: HD Time Spent With Patient Time: Total time managing care of this patient today ____ minutes. Quality Stroke Does the patient have a stroke diagnosis?: No VTE Prior VTE?: No VTE Risk Level:: Medical - moderate - high VTE Device Contraindication: Treatment Not Indicated VTE Drug Contraindication: N/A - Med Ordered
[2022-09-06] MEDS: polyethylene glycoL 3350 17 GM POWD.PACK PO (17:18)
[2022-09-06] MEDS: Docusate Sodium 100 MG CAPSULE 200 MG PO (17:18)
[2022-09-06 20:00] VITALS: BP 137/83; PULSE 106; RESP 18; TEMP 37.2; O2SAT 95
[2022-09-06] MEDS: traZODone HCL 100 MG TABLET PO (20:30)
[2022-09-06] MEDS: OLANZapine 10 MG TABLET 20 MG PO (20:30)
[2022-09-06] MEDS: Mirtazapine 30 MG TABLET PO (20:30)
[2022-09-07] VITALS: BP 144/82; PULSE 99; RESP 18; TEMP 37.2; O2SAT 93
[2022-09-07] MEDS: oxyCODONE HCl Immed Release 5 MG TABLET PO ×4 (02:31→22:23)
[2022-09-07 04:00] VITALS: BP 136/82; PULSE 101; RESP 18; TEMP 37.2; O2SAT 92
[2022-09-07 06:00] VITALS: BMI 35.2
[2022-09-07 06:40] LABS: Anion Gap 21 (12-20); Blood Urea Nitrogen 118 mg/dL (9-16); Calcium 7.3 mg/dL (8.4-10.2); Carbon Dioxide 31 mmol/L (22-29); Chloride 91 mmol/L (96-108); Glucose Random 108 mg/dL (60-115); Potassium 4.7 mmol/L (3.3-5.1); Sodium 138 mmol/L (135-145)
[2022-09-07 06:41] LABS: Creatinine Clr Calc Pharmacy 9.6; Estimated Glomerular Filt Rate 5
[2022-09-07 07:48] VITALS: BP 138/80; PULSE 98; RESP 16; TEMP 36.1; O2SAT 91
[2022-09-07] MEDS: clonazePAM 1 MG TABLET PO ×2 (08:39→20:44)
[2022-09-07] MEDS: Sertraline HCL 50 MG TABLET 150 MG PO (08:39)
[2022-09-07] MEDS: Heparin Sodium,Porcine 5,000 UNIT/ML VIAL 5000 UNIT SUBCUT ×2 (08:40→20:44)
[2022-09-07] MEDS: Docusate Sodium 100 MG CAPSULE 200 MG PO (08:40)
[2022-09-07] MEDS: 0.9 % Sodium Chloride Flush 3 ML SYRINGE IVFLUSH ×4 (08:41→20:49)
--- NOTE | 2022-09-07 11:00 | PM.PNNEP ---
Subjective Subjective Date of Service: 09/07/22 Interval history: Seen during dialysis. No renal recovery yet. Physical Exam Vital Signs: Vital Signs: Last Vital Signs Temp 97.0 F 09/07/22 07:48 Pulse 98 09/07/22 07:48 Resp 16 09/07/22 07:48 BP 138/80 09/07/22 07:48 Pulse Ox 91 L 09/07/22 07:48 O2 Del Method Room Air 09/07/22 07:48 O2 Flow Rate 2 09/06/22 11:54 BMI result Body Mass Index 35.2 Const: General: no acute distress; No confusion Orientation/consciousness: No confusion HEENT: Head: Yes normocephalic and Yes atraumatic Neck: Neck: Yes supple Resp: Auscultation: clear to auscultation bilaterally Cardio: Heart sounds: S1 normal heart sound present and S2 normal heart sound present GI: Palpation (GI): Soft to palpation and nontender Neuro: General: No confusion Extrem: General: Yes edema Objective Data Labs 09/05/22 06:07 09/07/22 05:45 Labs: Laboratory Results - last 24 hr 09/07/22 05:45 Sodium 138 Potassium 4.7 Chloride 91 L Carbon Dioxide 31 H Anion Gap 21 H BUN 118 H Creatinine 10.92 H* Estim Creat Clear Calc 9.6 Estimated GFR 5 Random Glucose 108 Calcium 7.3 L D Total Creatine Kinase 1350 H Microbiology Microbiology Results: Microbiology 08/30/22 21:00 Blood - Venous Blood Culture - Final No growth after 5 days. 08/30/22 21:00 Blood - Venous Blood Culture - Final No growth after 5 days. Procedures Date of Service Date of Service: 09/07/22 Assessment & Plan Assessment and plan (1) OLIVIA (acute kidney injury): Status: Acute (2) Rhabdomyolysis: Status: Acute (3) Metabolic acidosis: Status: Acute Plan s/p HD on Sunday s/p temporary dialysis catheter placement no improvement in kidney function heme pigment nephrotoxicity normal baseline kidney function REC HD as needed. monitor urine output and watch for renal recovery. Since there has been no renal recovery I will arrange for a PermCath. Vascular to follow up regarding the foot Time Spent With Patient Time: Total time managing care of this patient today ____ minutes. Progress Note: Quality Stroke Does the patient have a stroke diagnosis?: No
[2022-09-07 11:05] VITALS: BP 148/94; PULSE 102; RESP 16; TEMP 36.4; O2SAT 94
--- NOTE | 2022-09-07 12:52 | P.PNIM_ITS ---
Subjective Subjective Date of Service: 09/07/22 Interval History: resting comfortably in bed eating breakfast still concerned about unable to ambulate due to bilateral lower extremity weakness, denies headache, no dizziness, no nausea, no vomiting, no abdominal pain tolerating diet. Review of Systems Review of Systems: Yes all other systems are reviewed and are negative Physical Exam Vital Signs: Vital Signs: Last Vital Signs Temp 97.6 F 09/07/22 11:05 Pulse 102 H 09/07/22 11:05 Resp 16 09/07/22 11:05 BP 148/94 H 09/07/22 11:05 Pulse Ox 94 09/07/22 11:05 O2 Del Method Room Air 09/07/22 11:05 O2 Flow Rate 2 09/06/22 11:54 BMI result Body Mass Index 35.2 Const: Other: Gen:? Awake alert resting in bed, no acute distress Neck: supple, no JVD Lungs: clear to auscultation bilaterally, no wheeze, no crackles Heart: regular rate and rhythm, no murmurs Abd: soft, non-tender, non-distended, bowel sounds audible Ext: swollen fingers and toes bilaterally Skin: black discoloration of distal aspect of toes bilaterally with clear fluid- filled multiple blisters Neuro: alert and oriented x3, BLE strength 1/5, BUE strength 3/5 Psych: appropriate affect Objective Data Active Medications Acetaminophen (Acetaminophen 325 Mg Tablet) 650 mg PO Q6H PRN PRN Reason: Pain, Mild (Pain Scale 1-3) Last Admin: 09/06/22 22:02 Dose: 650 mg Documented By: TREY Bupropion HCl (Bupropion Hcl 100 Mg Tablet) 150 mg PO Q72H [facility] Last Admin: 09/06/22 07:44 Dose: 150 mg Documented By: MARGIE Calcium Carbonate (Calcium Carbonate 500 Mg Tablet) 500 mg PO TID [facility] Last Admin: 09/07/22 08:40 Dose: 500 mg Documented By: MARLENE Clonazepam (Clonazepam 1 Mg Tablet) 1 mg PO BID [facility] Last Admin: 09/07/22 08:39 Dose: 1 mg Documented By: MARLENE Docusate Sodium (Docusate Sodium 100 Mg Capsule) 200 mg PO DAILY [facility] Last Admin: 09/07/22 08:40 Dose: 200 mg Documented By: MARLENE Heparin Sodium (Porcine) (Heparin Sodium,Porcine 5,000 Unit/Ml Vial) 5,000 unit SUBCUT BID [facility] Last Admin: 09/07/22 08:40 Dose: 5,000 unit Documented By: MARLENE Hydroxyzine HCl (Hydroxyzine Hcl 50 Mg Tablet) 50 mg PO BID PRN PRN Reason: Anxiety Mirtazapine (Mirtazapine 30 Mg Tablet) 30 mg PO BEDTIME [facility] Last Admin: 09/06/22 20:30 Dose: 30 mg Documented By: TREY Olanzapine (Olanzapine 10 Mg Tablet) 20 mg PO BEDTIME [facility] Last Admin: 09/06/22 20:30 Dose: 20 mg Documented By: TREY Ondansetron HCl (Ondansetron Hcl 4 Mg/2 Ml Vial) 4 mg IVPUSH Q8H PRN PRN Reason: Nausea and Vomiting Oxycodone HCl (Oxycodone Hcl Immed Release 5 Mg Tablet) 5 mg PO Q4H PRN PRN Reason: Pain, Severe (Pain Scale 7-10) Last Admin: 09/07/22 08:39 Dose: 5 mg Documented By: MARLENE Polyethylene Glycol (Polyethylene Glycol 3350 17 Gm Powd.Pack) 17 gm PO DAILY [facility] Last Admin: 09/07/22 08:46 Dose: Not Given Documented By: MARLENE Non-Admin Reason: Patient Refused Sertraline HCl (Sertraline Hcl 50 Mg Tablet) 150 mg PO DAILY [facility] Last Admin: 09/07/22 08:39 Dose: 150 mg Documented By: MARLENE Sodium Chloride (0.9 % Sodium Chloride Flush 3 Ml Syringe) 3 ml IVFLUSH QSHIFT [facility] Last Admin: 09/07/22 08:41 Dose: 3 ml Documented By: MARLENE Trazodone HCl (Trazodone Hcl 100 Mg Tablet) 100 mg PO BEDTIME [facility] Last Admin: 09/06/22 20:30 Dose: 100 mg Documented By: TREY Labs 09/05/22 06:07 09/07/22 05:45 Labs: Laboratory Results - last 24 hr 09/07/22 05:45 Anion Gap 21 H Estim Creat Clear Calc 9.6 Estimated GFR 5 Random Glucose 108 Calcium 7.3 L D Total Creatine Kinase 1350 H Assessment and Plan (1) Frostbite: Status: Acute (2) Hyperkalemia: Status: Acute (3) OLIVIA (acute kidney injury): Status: Acute (4) Rhabdomyolysis: Status: Acute Plan d#6 52yo homeless M with anxiety + depression, opioid dependence, PTSD presenting with severe BLE weakness after immobility x3d, admitted for OLIVIA due to rhabdomyolysis; was down for estimated 2-3d # OLIVIA due to rhabdomyolysis - no renal recovery noted, creatinine remains elevated CPK significantly improved to 1350, receiving hemodialysis through temporary catheter HD 09/01/22 + 09/02/22 and 09/05. receiving hemodialysis as needed will likely need PermCath, being followed by Nephrology. follow BMP # weakness - question of flexion myelopathy remains, MRI thoracic spine showed extensive T2 signal change involving the paraspinal musculature possibly sequela of rhabdomyolysis no definite thoracic cord signal changes noted. Continue physical therapy. 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 # hyperK - resolved p 1 dose [facility] # frostbite - passive rewarming, being followed by General surgery no surgical intervention planned ,continue to monitor for necrosis. cont. as needed oxycodone add stool softeners # polysubstance abuse - Addiction Medicine consulted- declined medication for opioid use disorder # mood disorder - continue bupropion [renally dosed], clonazepam, mirtapazine, olanzapine, sertraline,and trazodone, no behavioral issues noted. # VTE ppx: UFH # dispo: will need prolonged rehab In my clinical judgment, the patient requires continued inpatient hospitalization for the following reasons: HD Time Spent With Patient Time: Total time managing care of this patient today ____ minutes. Quality Stroke Does the patient have a stroke diagnosis?: No VTE Prior VTE?: No VTE Risk Level:: Medical - moderate - high VTE Device Contraindication: Treatment Not Indicated VTE Drug Contraindication: N/A - Med Ordered
--- NOTE | 2022-09-07 13:05 | P.CDIM_ITS ---
PROVIDER RESPONSE TEXT: To clarify, the appropriate diagnosis supported by the clinical indicators: Acute QUERY TEXT: PHYSICIAN'S DOCUMENTATION REQUEST Date of Query: 09/07/2022 10:45 AM EDT Patient Name: Quintin Heard Admit Date: 08/31/2022 Dear Annette Yañez, A review of the medical record indicates additional documentation may be needed. Please review below and update the documentation accordingly. Clinical Indicators: Per Nephrology note 09/06/22: Metabolic Acidosis Per MD progress note 09/06/22: headache, weakness Clarify which of the following accurately represents the acuity of the (insert diagnosis). Possible options might include: Acute Acute on chronic Compensated Chronic stable condition Remission Other (explain) Clinically unable to determine (explain) Thank you, Ivelisse Malin RN Use of terms such as suspected, likely, concern for, or probable (associated with a specific diagnosi s that is being evaluated, monitored, or treated as if it exists) are acceptable and can be coded in the inpatient se tting, when documented at the time of discharge. Please use your independent medical judgment in providing your response. THIS QUERY IS PART OF THE PERMANENT MEDICAL RECORD
[2022-09-07 15:59] VITALS: BP 156/86; PULSE 96; RESP 18; TEMP 37.1; O2SAT 96
[2022-09-07 20:00] VITALS: BP 158/85; PULSE 94; RESP 18; TEMP 37; O2SAT 95
[2022-09-07] MEDS: OLANZapine 10 MG TABLET 20 MG PO (20:42)
[2022-09-07] MEDS: traZODone HCL 100 MG TABLET PO (20:44)
[2022-09-07] MEDS: Mirtazapine 30 MG TABLET PO (20:44)
[2022-09-08] VITALS (8 sets, daily range): BP systolic 126–162; BP diastolic 67–88; PULSE 102–112; RESP 16–20; TEMP 36.5–37.4; O2SAT 92–95; BMI 35.5
[2022-09-08] MEDS: oxyCODONE HCl Immed Release 5 MG TABLET PO ×4 (02:41→20:18)
[2022-09-08] MEDS: Heparin Sodium,Porcine 5,000 UNIT/ML VIAL 5000 UNIT SUBCUT ×2 (07:56→20:20)
[2022-09-08] MEDS: Sertraline HCL 50 MG TABLET 150 MG PO (07:56)
[2022-09-08] MEDS: Docusate Sodium 100 MG CAPSULE 200 MG PO (07:57)
[2022-09-08] MEDS: 0.9 % Sodium Chloride Flush 3 ML SYRINGE IVFLUSH ×3 (08:18→20:20)
--- NOTE | 2022-09-08 09:45 | HO.PM.IMPN ---
Subjective Subjective Date of Service: 09/08/22 Interval History: Did not sleep well last night feels tired, denies headache, no new complaints, participating with physical therapy tolerating diet. Review of Systems Review of Systems: Yes all other systems are reviewed and are negative Physical Exam Vital Signs: Vital Signs: Last Vital Signs Temp 97.8 F 09/08/22 07:37 Pulse 108 H 09/08/22 09:40 Resp 20 09/08/22 07:37 BP 136/82 09/08/22 09:40 Pulse Ox 93 09/08/22 09:40 O2 Del Method Room Air 09/08/22 07:37 O2 Flow Rate 2 09/06/22 11:54 BMI result Body Mass Index 35.5 Const: Other: Gen:? Awake alert resting in bed, no acute distress Neck: supple, no JVD Lungs: clear to auscultation bilaterally, no wheeze, no crackles Heart: regular rate and rhythm, no murmurs Abd: soft, non-tender, non-distended, bowel sounds audible Ext: swollen fingers and toes bilaterally Skin: black discoloration of distal aspect of all left foot toes and right big toe, with multiple fluid and blood filled blisters on dorsum of both feet. Neuro: alert and oriented x3, BLE strength 1/5, BUE strength 3/5 Psych: appropriate affect Objective Data Active Medications Acetaminophen (Acetaminophen 325 Mg Tablet) 650 mg PO Q6H PRN PRN Reason: Pain, Mild (Pain Scale 1-3) Last Admin: 09/06/22 22:02 Dose: 650 mg Documented By: TREY Bupropion HCl (Bupropion Hcl 100 Mg Tablet) 150 mg PO Q72H [facility] Last Admin: 09/06/22 07:44 Dose: 150 mg Documented By: ANGELESENOJACK Calcium Carbonate (Calcium Carbonate 500 Mg Tablet) 500 mg PO TID [facility] Last Admin: 09/08/22 07:56 Dose: 500 mg Documented By: TRUDI Clonazepam (Clonazepam 1 Mg Tablet) 1 mg PO BID [facility] Last Admin: 09/07/22 20:44 Dose: 1 mg Documented By: TONY-LADINEZ Docusate Sodium (Docusate Sodium 100 Mg Capsule) 200 mg PO DAILY [facility] Last Admin: 09/08/22 07:57 Dose: 200 mg Documented By: TRUDI Heparin Sodium (Porcine) (Heparin Sodium,Porcine 5,000 Unit/Ml Vial) 5,000 unit SUBCUT BID [facility] Last Admin: 09/08/22 07:56 Dose: 5,000 unit Documented By: TRUDI Hydroxyzine HCl (Hydroxyzine Hcl 50 Mg Tablet) 50 mg PO BID PRN PRN Reason: Anxiety Mirtazapine (Mirtazapine 30 Mg Tablet) 30 mg PO BEDTIME [facility] Last Admin: 09/07/22 20:44 Dose: 30 mg Documented By: BOLIVAR Olanzapine (Olanzapine 10 Mg Tablet) 20 mg PO BEDTIME [facility] Last Admin: 09/07/22 20:42 Dose: 20 mg Documented By: BOLIVAR Ondansetron HCl (Ondansetron Hcl 4 Mg/2 Ml Vial) 4 mg IVPUSH Q8H PRN PRN Reason: Nausea and Vomiting Oxycodone HCl (Oxycodone Hcl Immed Release 5 Mg Tablet) 5 mg PO Q4H PRN PRN Reason: Pain, Severe (Pain Scale 7-10) Last Admin: 09/08/22 06:27 Dose: 5 mg Documented By: BOLIVAR Polyethylene Glycol (Polyethylene Glycol 3350 17 Gm Powd.Pack) 17 gm PO DAILY [facility] Last Admin: 09/08/22 07:57 Dose: Not Given Documented By: TRUDI Non-Admin Reason: Patient Refused Sertraline HCl (Sertraline Hcl 50 Mg Tablet) 150 mg PO DAILY [facility] Last Admin: 09/08/22 07:56 Dose: 150 mg Documented By: TRUDI Sodium Chloride (0.9 % Sodium Chloride Flush 3 Ml Syringe) [facility] Last Admin: 09/08/22 08:18 Dose: 3 ml Documented By: TRUDI Trazodone HCl (Trazodone Hcl 100 Mg Tablet) 100 mg PO BEDTIME [facility] Last Admin: 09/07/22 20:44 Dose: 100 mg Documented By: BOLIVAR Labs 09/05/22 06:07 09/07/22 05:45 Assessment and Plan (1) Frostbite: Status: Acute (2) Hyperkalemia: Status: Acute (3) OLIVIA (acute kidney injury): Status: Acute (4) Rhabdomyolysis: Status: Acute Plan 52yo homeless M with anxiety + depression, opioid dependence, PTSD presenting with severe BLE weakness after immobility x3d, admitted for OLIVIA due to rhabdomyolysis; was down for estimated 2-3d # OLIVIA due to rhabdomyolysis (pigment nephrotoxicity) - no renal recovery noted, creatinine remains elevated CPK significantly improved to 1350, receiving hemodialysis through temporary catheter HD 09/01/22 + 09/02/22 and 09/05. Case discussed with Nephrology they recommend hemodialysis Sunday and Sunday Nephro will arrange for PermCath and outpatient hemodialysis spot # weakness - question of flexion myelopathy remains, MRI thoracic spine showed extensive T2 signal change involving the paraspinal musculature possibly sequela of rhabdomyolysis, no definite thoracic cord signal changes noted. Continue physical therapy patient requiring significant assist for all functional mobility, requiring [place] transfers. 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 # hyperK - resolved p 1 dose SZ # frostbite - being followed by General surgery no surgical intervention planned ,continue to monitor for necrosis. cont. as needed oxycodone and stool softeners # polysubstance abuse - Addiction Medicine consulted- declined medication for opioid use disorder # mood disorder - continue bupropion [renally dosed], clonazepam, mirtapazine, olanzapine, sertraline,and trazodone, no behavioral issues noted. # VTE ppx: UFH # dispo: will need prolonged rehab In my clinical judgment, the patient requires continued inpatient hospitalization for the following reasons: Olivia requiring HD Time Spent With Patient Time: Total time managing care of this patient today ____ minutes. Quality Stroke Does the patient have a stroke diagnosis?: No VTE Prior VTE?: No VTE Risk Level:: Medical - moderate - high VTE Device Contraindication: Treatment Not Indicated VTE Drug Contraindication: N/A - Med Ordered
--- NOTE | 2022-09-08 10:07 | MHC.CLN ---
RE: CONSULT PT WITH INCREASED NUTRITION RISK R/T PRESSURE INJURY PO INTAKE 75-100% DIET RX: REGULAR M/S GRD-APPROPRIATE PT RECEIVING ENSURE TID TO INCREASE KCALS AND PROMOTE WOUND HEALING SUPPLEMENT PROVIDES 1050KCALS, 60G PROTEIN MONITOR PO INTAKE AND SUPP ACCEPTANCE SEE ALSO FULL CLINICAL NUTRITION ASSESSMENT
--- NOTE | 2022-09-08 10:32 | MHC.CM.PN ---
Per ROUNDS discussion, Patient is not yet medically cleared for dc (new HD); PT is recommending STR and CM will continue to follow.
--- NOTE | 2022-09-08 11:40 | PM.PNNEP ---
Subjective Subjective Date of Service: 09/08/22 Interval history: Seen AM. All recent data reviewed. Has not had renal recovery yet Physical Exam Vital Signs: Vital Signs: Last Vital Signs Temp 99.3 F 09/08/22 11:13 Pulse 104 H 09/08/22 11:13 Resp 16 09/08/22 11:13 BP 128/70 09/08/22 11:13 Pulse Ox 92 09/08/22 11:13 O2 Del Method Room Air 09/08/22 11:13 O2 Flow Rate 2 09/06/22 11:54 BMI result Body Mass Index 35.5 Const: General: no acute distress Orientation/consciousness: patient oriented x3 HEENT: Head: Yes normocephalic Eyes: EOM: EOMs intact bilaterally Resp: Auscultation: diminished lung sounds Cardio: Rate: regular rate GI: Palpation (GI): Soft to palpation Neuro: General: patient oriented x3 Objective Data Labs 09/05/22 06:07 09/07/22 05:45 Microbiology Microbiology Results: Microbiology 08/30/22 21:00 Blood - Venous Blood Culture - Final No growth after 5 days. 08/30/22 21:00 Blood - Venous Blood Culture - Final No growth after 5 days. Procedures Date of Service Date of Service: 09/08/22 Assessment & Plan Assessment and plan (1) OLIVIA (acute kidney injury): Status: Acute Assessment and Plan: OLIVIA due to heme pigment nephrotoxicity normal baseline kidney function s/p temporary dialysis catheter placement no improvement in kidney function Shall keep him on HD TTS schedule for now- due tomorrow monitor urine output and watch for renal recovery.? Since there has been no renal recovery , needs a PermCath. Vascular to follow up regarding the foot Outpt HD spot requested with DIEUDONNE( Details given to DIEUDONNE [employer]) Progress Note: Quality Stroke Does the patient have a stroke diagnosis?: No
[2022-09-08 15:03] LABS: Glucose, Whole Blood 132 mg/dL (60-115)
[2022-09-08] MEDS: polyethylene glycoL 3350 17 GM POWD.PACK PO (16:18)
--- NOTE | 2022-09-08 18:09 | PC.NURSE ---
Received report from previous shift that pt didn't go for permacath because pt was not NPO for the procedure, call placed to DR Paredes [facility] to make him aware.
[2022-09-08] MEDS: Mirtazapine 30 MG TABLET PO (20:19)
[2022-09-08] MEDS: traZODone HCL 100 MG TABLET PO (20:19)
[2022-09-08] MEDS: clonazePAM 1 MG TABLET PO (20:19)
[2022-09-08] MEDS: OLANZapine 10 MG TABLET 20 MG PO (20:20)
[2022-09-09 03:14] VITALS: BP 144/80; PULSE 106; RESP 20; TEMP 37.1; O2SAT 94
[2022-09-09] MEDS: oxyCODONE HCl Immed Release 5 MG TABLET PO ×3 (03:58→20:00)
[2022-09-09 05:42] VITALS: BMI 35.3
[2022-09-09 06:39] LABS: Hematocrit 29.3 % (42.0-52.0); Hemoglobin 9.8 g/dl (14.0-18.0); Mean Corpuscular HGB Conc 33.4 g/dl (31.0-36.0); Mean Corpuscular Hemoglobin 28.2 pg (27.0-33.0); Mean Corpuscular Volume 84.2 fL (80.0-98.0); Mean Platelet Volume 9.5 fL (9.4-12.4); Platelet Count 349 X10*3/uL (160-400); Red Blood Count 3.48 X10*6/uL (4.60-5.80); Red Cell Distribution Width 14.9 % (11.0-16.0); White Blood Count 14.8 X10*3/uL (4.8-10.8)
[2022-09-09 06:50] LABS: Anion Gap 18 (12-20); Blood Urea Nitrogen 106 mg/dL (9-16); Calcium 8.4 mg/dL (8.4-10.2); Carbon Dioxide 26 mmol/L (22-29); Chloride 101 mmol/L (96-108); Creatinine Clr Calc Pharmacy 10.8; Estimated Glomerular Filt Rate 6; Glucose Random 98 mg/dL (60-115); Potassium 4.7 mmol/L (3.3-5.1); Sodium 140 mmol/L (135-145)
[2022-09-09 08:00] VITALS: BP 145/78; PULSE 104; RESP 20; TEMP 36.9; O2SAT 95
[2022-09-09] MEDS: Sertraline HCL 50 MG TABLET 150 MG PO (09:33)
[2022-09-09] MEDS: buPROPion HCL 100 MG TABLET 150 MG PO (09:33)
[2022-09-09] MEDS: clonazePAM 1 MG TABLET PO (09:33)
[2022-09-09] MEDS: Heparin Sodium,Porcine 5,000 UNIT/ML VIAL 5000 UNIT SUBCUT ×2 (09:34→20:03)
[2022-09-09] MEDS: Docusate Sodium 100 MG CAPSULE 200 MG PO (09:34)
[2022-09-09] MEDS: 0.9 % Sodium Chloride Flush 3 ML SYRINGE IVFLUSH ×2 (09:36→20:11)
--- NOTE | 2022-09-09 11:58 | HO.PM.IMPN ---
Subjective Subjective Date of Service: 09/09/22 Interval History: no renal recovery pain under control Review of Systems Review of Systems: Yes all other systems are reviewed and are negative Physical Exam Vital Signs: Vital Signs: Last Vital Signs Temp 98.4 F 09/09/22 08:00 Pulse 104 H 09/09/22 08:00 Resp 20 09/09/22 08:00 BP 145/78 H 09/09/22 08:00 Pulse Ox 95 09/09/22 08:00 O2 Del Method Room Air 09/09/22 08:00 O2 Flow Rate 2 09/06/22 11:54 BMI result Body Mass Index 35.3 Gen: NAD HEENT: sclera anicteric, moist mucus membranes Neck: supple Lungs: clear to auscultation bilaterally Heart: regular rate and rhythm, no murmurs Abd: soft, non-tender, non-distended Ext: swollen fingers and toes bilaterally Skin: dark bluish discoloration of distal aspect of toes bilaterally with clear fluid-filled blisters Neuro: alert and oriented x3, BLE strength 1/5, BUE strength 3/5 Psych: appropriate affect Objective Data Active Medications Acetaminophen (Acetaminophen 325 Mg Tablet) 650 mg PO Q6H PRN PRN Reason: Pain, Mild (Pain Scale 1-3) Last Admin: 09/06/22 22:02 Dose: 650 mg Documented By: TREY Bupropion HCl (Bupropion Hcl 100 Mg Tablet) 150 mg PO Q72H [facility] Last Admin: 09/09/22 09:33 Dose: 150 mg Documented By: JOSUE Calcium Carbonate (Calcium Carbonate 500 Mg Tablet) 500 mg PO TID [facility] Last Admin: 09/09/22 09:34 Dose: 500 mg Documented By: JOSUE Docusate Sodium (Docusate Sodium 100 Mg Capsule) 200 mg PO DAILY [facility] Last Admin: 09/09/22 09:34 Dose: 200 mg Documented By: JOSUE Heparin Sodium (Porcine) (Heparin Sodium,Porcine 5,000 Unit/Ml Vial) 5,000 unit SUBCUT BID [facility] Last Admin: 09/09/22 09:34 Dose: 5,000 unit Documented By: JOSUE Hydroxyzine HCl (Hydroxyzine Hcl 50 Mg Tablet) 50 mg PO BID PRN PRN Reason: Anxiety Mirtazapine (Mirtazapine 30 Mg Tablet) 30 mg PO BEDTIME [facility] Last Admin: 09/08/22 20:19 Dose: 30 mg Documented By: BOLIVAR Olanzapine (Olanzapine 10 Mg Tablet) 20 mg PO BEDTIME [facility] Last Admin: 09/08/22 20:20 Dose: 20 mg Documented By: BOLIVAR Ondansetron HCl (Ondansetron Hcl 4 Mg/2 Ml Vial) 4 mg IVPUSH Q8H PRN PRN Reason: Nausea and Vomiting Oxycodone HCl (Oxycodone Hcl Immed Release 5 Mg Tablet) 5 mg PO Q4H PRN PRN Reason: Pain, Severe (Pain Scale 7-10) Last Admin: 09/09/22 09:33 Dose: 5 mg Documented By: JOSUE Polyethylene Glycol (Polyethylene Glycol 3350 17 Gm Powd.Pack) 17 gm PO DAILY [facility] Last Admin: 09/09/22 09:32 Dose: Not Given Documented By: JOSUE Non-Admin Reason: Patient Refused Sertraline HCl (Sertraline Hcl 50 Mg Tablet) 150 mg PO DAILY [facility] Last Admin: 09/09/22 09:33 Dose: 150 mg Documented By: JOSUE Sodium Chloride (0.9 % Sodium Chloride Flush 3 Ml Syringe) 3 ml IVFLUSH QSHIFT [facility] Last Admin: 09/09/22 09:36 Dose: 3 ml Documented By: JOSUE Trazodone HCl (Trazodone Hcl 100 Mg Tablet) 100 mg PO BEDTIME [facility] Last Admin: 09/08/22 20:19 Dose: 100 mg Documented By: BOLIVAR Labs 09/09/22 06:03 09/09/22 06:03 Labs: Laboratory Results - last 24 hr 09/08/22 09/09/22 09/09/22 14:58 06:03 06:03 MCV 84.2 MCH 28.2 MCHC 33.4 RDW 14.9 Plt Count 349 D MPV 9.5 Absolute Nucleated RBC 0.000 Nucleated RBC % (auto) 0.0 Anion Gap 18 Estim Creat Clear Calc 10.8 Estimated GFR 6 POC Glucose 132 H Random Glucose 98 Calcium 8.4 D Assessment and Plan (1) Frostbite: Status: Acute (2) Hyperkalemia: Status: Acute (3) OLIVIA (acute kidney injury): Status: Acute (4) Rhabdomyolysis: Status: Acute Plan d#11 52yo homeless M with anxiety + depression, opioid dependence, PTSD presenting with severe BLE weakness after immobility x3d, admitted for OLIVIA due to rhabdomyolysis; was down for estimated 2-3d # OLIVIA due to rhabdomyolysis (pigment nephrotoxicity) - no renal recovery noted, creatinine remains elevated, CPK improved receiving hemodialysis through temporary catheter, now needs HD TuThSa, convert temporary to Permacath 09/11 # weakness - question of flexion myelopathy: MRI thoracic spine showed extensive T2 signal change involving the paraspinal musculature possibly sequela of rhabdomyolysis, no definite thoracic cord signal changes noted. - continue physical therapy patient, requiring significant assist for all functional mobility, requiring [place] for transfers. 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 # hyperK - resolved p 1 dose SZC # frostbite - being followed by General surgery no surgical intervention planned; continue to monitor for necrosis. - pain control with oxycodone prn # polysubstance abuse - Addiction Medicine consulted- declined medication for opioid use disorder # mood disorder - continue bupropion [renally dosed], clonazepam, mirtapazine, olanzapine, sertraline, and trazodone; no behavioral issues noted # VTE ppx: UFH # dispo: will need prolonged rehab In my clinical judgment, the patient requires continued inpatient hospitalization for the following reasons: OLIVIA, HD Time Spent With Patient Time: Total time managing care of this patient today _40___ minutes. Quality Stroke Does the patient have a stroke diagnosis?: No VTE Prior VTE?: No VTE Risk Level:: Medical - moderate - high VTE Device Contraindication: Treatment Not Indicated VTE Drug Contraindication: N/A - Med Ordered
--- NOTE | 2022-09-09 15:02 | P.PNNP_ITS ---
Subjective Subjective Date of Service: 09/09/22 Interval history: All recent data reviewed. Urine output bit better; Due HD today Physical Exam Vital Signs: Vital Signs: Last Vital Signs Temp 98.4 F 09/09/22 08:00 Pulse 104 H 09/09/22 08:00 Resp 20 09/09/22 08:00 BP 145/78 H 09/09/22 08:00 Pulse Ox 95 09/09/22 08:00 O2 Del Method Room Air 09/09/22 08:00 O2 Flow Rate 2 09/06/22 11:54 BMI result Body Mass Index 35.3 Const: General: no acute distress Orientation/consciousness: patient oriented x3 Eyes: EOM: EOMs intact bilaterally Resp: Auscultation: diminished lung sounds Cardio: Rate: regular rate GI: Palpation (GI): Soft to palpation Neuro: General: patient oriented x3 Objective Data Labs 09/09/22 06:03 09/09/22 06:03 Labs: Laboratory Results - last 24 hr 09/08/22 09/09/22 09/09/22 14:58 06:03 06:03 WBC 14.8 H RBC 3.48 L Hgb 9.8 L Hct 29.3 L MCV 84.2 MCH 28.2 MCHC 33.4 RDW 14.9 Plt Count 349 D MPV 9.5 Absolute Nucleated RBC 0.000 Nucleated RBC % (auto) 0.0 Sodium 140 Potassium 4.7 Chloride 101 Carbon Dioxide 26 Anion Gap 18 BUN 106 H Creatinine 9.65 H* Estim Creat Clear Calc 10.8 Estimated GFR 6 POC Glucose 132 H Random Glucose 98 Calcium 8.4 D Microbiology Microbiology Results: Microbiology 08/30/22 21:00 Blood - Venous Blood Culture - Final No growth after 5 days. 08/30/22 21:00 Blood - Venous Blood Culture - Final No growth after 5 days. Procedures Date of Service Date of Service: 09/09/22 Assessment & Plan Assessment and plan (1) OLIVIA (acute kidney injury): Status: Acute Assessment and Plan: OLIVIA due to heme pigment nephrotoxicity normal baseline kidney function s/p temporary dialysis catheter placement no good improvement in kidney function- UO better today Shall keep him on HD TTS schedule for now- due today monitor urine output and watch for renal recovery.? Hold PermCath for now given better UO today Vascular to follow up regarding the foot Outpt HD spot requested with DIEUDONNE( Details given to DIEUDONNE TE[employer]APHIC [employer]WR[employer] REPAIRER)( just in case) Progress Note: Quality Stroke Does the patient have a stroke diagnosis?: No
[2022-09-09 16:05] VITALS: BP 137/90; PULSE 104; RESP 20; TEMP 36.2; O2SAT 93
[2022-09-09] MEDS: Acetaminophen 325 MG TABLET 650 MG PO (16:06)
[2022-09-09 19:08] VITALS: BP 147/85; PULSE 104; RESP 20; TEMP 36.7; O2SAT 96
[2022-09-09] MEDS: Mirtazapine 30 MG TABLET PO (19:59)
[2022-09-09] MEDS: traZODone HCL 100 MG TABLET PO (19:59)
[2022-09-09] MEDS: OLANZapine 10 MG TABLET 20 MG PO (19:59)
[2022-09-10] VITALS (7 sets, daily range): BP systolic 123–168; BP diastolic 70–86; PULSE 97–106; RESP 13–18; TEMP 36.5–37.2; O2SAT 95–98; BMI 33.5
[2022-09-10] MEDS: oxyCODONE HCl Immed Release 5 MG TABLET PO ×3 (00:11→10:08)
[2022-09-10 06:42] LABS: Hematocrit 28.4 % (42.0-52.0); Hemoglobin 9.6 g/dl (14.0-18.0); Mean Corpuscular HGB Conc 33.8 g/dl (31.0-36.0); Mean Corpuscular Volume 85.8 fL (80.0-98.0); Mean Platelet Volume 9.7 fL (9.4-12.4); Platelet Count 363 X10*3/uL (160-400); Red Blood Count 3.31 X10*6/uL (4.60-5.80); Red Cell Distribution Width 14.7 % (11.0-16.0); White Blood Count 15.4 X10*3/uL (4.8-10.8)
[2022-09-10 07:20] LABS: Alanine Aminotransferase 55 U/L (0-40); Albumin Level 2.9 g/dL (3.5-5.0); Alkaline Phosphatase 83 U/L (39-117); Aspartate Amino Transferase 26 U/L (5-37); Bilirubin Total 0.7 mg/dL (0.0-1.0); Blood Urea Nitrogen 72 mg/dL (9-16); Calcium 8.2 mg/dL (8.4-10.2); Creatinine Clr Calc Pharmacy 13.4; Estimated Glomerular Filt Rate 8; Glucose Random 104 mg/dL (60-115); Total Protein 5.3 g/dL (6.5-8.0)
[2022-09-10 07:30] LABS: Anion Gap 17 (12-20); Carbon Dioxide 22 mmol/L (22-29); Chloride 101 mmol/L (96-108); Potassium 4.3 mmol/L (3.3-5.1); Sodium 136 mmol/L (135-145)
[2022-09-10] MEDS: Heparin Sodium,Porcine 5,000 UNIT/ML VIAL 5000 UNIT SUBCUT ×2 (08:17→20:05)
[2022-09-10] MEDS: Acetaminophen 325 MG TABLET 650 MG PO (08:18)
[2022-09-10] MEDS: Sertraline HCL 50 MG TABLET 150 MG PO (08:20)
[2022-09-10] MEDS: 0.9 % Sodium Chloride Flush 3 ML SYRINGE IVFLUSH ×2 (08:20→20:10)
--- NOTE | 2022-09-10 10:36 | HO.PM.IMPN ---
Subjective Subjective Date of Service: 09/10/22 Interval History: SCr improved c/o foot pain Review of Systems Review of Systems: Yes all other systems are reviewed and are negative Physical Exam Vital Signs: Vital Signs: Last Vital Signs Temp 98.0 F 09/10/22 07:00 Pulse 100 09/10/22 07:00 Resp 16 09/10/22 07:00 BP 148/86 H 09/10/22 07:00 Pulse Ox 97 09/10/22 07:00 O2 Del Method Room Air 09/10/22 07:00 O2 Flow Rate 2 09/06/22 11:54 BMI result Body Mass Index 33.5 Gen: NAD HEENT: sclera anicteric, moist mucus membranes Neck: supple Lungs: clear to auscultation bilaterally Heart: regular rate and rhythm, no murmurs Abd: soft, non-tender, non-distended Ext: swollen fingers and toes bilaterally Skin: dark bluish discoloration of distal aspect of toes bilaterally with clear fluid-filled blisters Neuro: alert and oriented x3, BLE strength 1/5, BUE strength 3/5 Psych: appropriate affect Objective Data Active Medications Acetaminophen (Acetaminophen 325 Mg Tablet) 650 mg PO Q6H PRN PRN Reason: Pain, Mild (Pain Scale 1-3) Last Admin: 09/10/22 08:18 Dose: 650 mg Documented By: JOSUE Bupropion HCl (Bupropion Hcl 100 Mg Tablet) 150 mg PO Q72H [facility] Last Admin: 09/09/22 09:33 Dose: 150 mg Documented By: JOSUE Calcium Carbonate (Calcium Carbonate 500 Mg Tablet) 500 mg PO TID [facility] Last Admin: 09/10/22 08:20 Dose: 500 mg Documented By: JOSUE Clonazepam (Clonazepam 1 Mg Tablet) 1 mg PO BID [facility] Docusate Sodium (Docusate Sodium 100 Mg Capsule) 200 mg PO DAILY [facility] Last Admin: 09/10/22 08:31 Dose: Not Given Documented By: JOSUE Non-Admin Reason: Patient Refused Heparin Sodium (Porcine) (Heparin Sodium,Porcine 5,000 Unit/Ml Vial) 5,000 unit SUBCUT BID [facility] Last Admin: 09/10/22 08:17 Dose: 5,000 unit Documented By: JOSUE Hydroxyzine HCl (Hydroxyzine Hcl 50 Mg Tablet) 50 mg PO BID PRN PRN Reason: Anxiety Mirtazapine (Mirtazapine 30 Mg Tablet) 30 mg PO BEDTIME [facility] Last Admin: 09/09/22 19:59 Dose: 30 mg Documented By: BOLIVAR Olanzapine (Olanzapine 10 Mg Tablet) 20 mg PO BEDTIME [facility] Last Admin: 09/09/22 19:59 Dose: 20 mg Documented By: BOLIVAR Ondansetron HCl (Ondansetron Hcl 4 Mg/2 Ml Vial) 4 mg IVPUSH Q8H PRN PRN Reason: Nausea and Vomiting Oxycodone HCl (Oxycodone Hcl Immed Release 5 Mg Tablet) 5 mg PO Q4H PRN PRN Reason: Pain, Severe (Pain Scale 7-10) Last Admin: 09/10/22 10:08 Dose: 5 mg Documented By: JOSUE Polyethylene Glycol (Polyethylene Glycol 3350 17 Gm Powd.Pack) 17 gm PO DAILY [facility] Last Admin: 09/10/22 08:32 Dose: Not Given Documented By: JOSUE Non-Admin Reason: Patient Refused Sertraline HCl (Sertraline Hcl 50 Mg Tablet) 150 mg PO DAILY [facility] Last Admin: 09/10/22 08:20 Dose: 150 mg Documented By: JOSUE Sodium Chloride (0.9 % Sodium Chloride Flush 3 Ml Syringe) 3 ml IVFLUSH QSHIFT [facility] Last Admin: 09/10/22 08:20 Dose: 3 ml Documented By: JOSUE Trazodone HCl (Trazodone Hcl 100 Mg Tablet) 100 mg PO BEDTIME [facility] Last Admin: 09/09/22 19:59 Dose: 100 mg Documented By: BOLIVAR Labs 09/10/22 06:12 09/10/22 06:12 Labs: Laboratory Results - last 24 hr 09/10/22 09/10/22 06:12 06:12 MCV 85.8 MCH 29.0 MCHC 33.8 RDW 14.7 Plt Count 363 MPV 9.7 Absolute Nucleated RBC 0.000 Nucleated RBC % (auto) 0.0 Anion Gap 17 Estim Creat Clear Calc 13.4 Estimated GFR 8 Random Glucose 104 Calcium 8.2 L Total Bilirubin 0.7 AST 26 ALT 55 H Alkaline Phosphatase 83 Total Creatine Kinase 273 H Total Protein 5.3 L Albumin 2.9 L Assessment and Plan (1) Frostbite: Status: Acute (2) Hyperkalemia: Status: Acute (3) OLIVIA (acute kidney injury): Status: Acute (4) Rhabdomyolysis: Status: Acute Plan d#12 52yo homeless M with anxiety + depression, opioid dependence, PTSD presenting with severe BLE weakness after immobility x3d, admitted for OLIVIA due to rhabdomyolysis; was down for estimated 2-3d # OLIVIA due to rhabdomyolysis (pigment nephrotoxicity) - dialyzed TuThSa, Cr improved, recheck BMP tomorrow and hold off on Permacath for now in case of renal covery # weakness - question of flexion myelopathy; MRI thoracic spine showed extensive T2 signal change involving the paraspinal musculature possibly sequela of rhabdomyolysis, no definite thoracic cord signal changes noted. - continue physical therapy patient, requiring significant assist for all functional mobility, requiring [place] for transfers. 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 # hyperK - resolved p 1 dose [facility] [place] # frostbite - being followed by General surgery no surgical intervention planned; continue to monitor for necrosis. - pain control with oxycodone prn- increase dose # polysubstance abuse - Addiction Medicine consulted- declined medication for opioid use disorder # mood disorder - continue bupropion [renally dosed], clonazepam, mirtapazine, olanzapine, sertraline, and trazodone; no behavioral issues noted # VTE ppx: UFH # dispo: will need prolonged rehab In my clinical judgment, the patient requires continued inpatient hospitalization for the following reasons: OLIVIA, HD Time Spent With Patient Time: Total time managing care of this patient today _35___ minutes. Quality Stroke Does the patient have a stroke diagnosis?: No VTE Prior VTE?: No VTE Risk Level:: Medical - moderate - high VTE Device Contraindication: Treatment Not Indicated VTE Drug Contraindication: N/A - Med Ordered
--- NOTE | 2022-09-10 10:48 | P.PNNP_ITS ---
Subjective Subjective Date of Service: 09/10/22 Interval history: Seen this AM. All recent data reviewed Physical Exam Vital Signs: Vital Signs: Last Vital Signs Temp 98.0 F 09/10/22 07:00 Pulse 100 09/10/22 07:00 Resp 16 09/10/22 07:00 BP 148/86 H 09/10/22 07:00 Pulse Ox 97 09/10/22 07:00 O2 Del Method Room Air 09/10/22 07:00 O2 Flow Rate 2 09/06/22 11:54 BMI result Body Mass Index 33.5 Const: General: no acute distress Orientation/consciousness: patient oriented x3 Eyes: EOM: EOMs intact bilaterally Neck: Neck: Yes supple Resp: Auscultation: diminished lung sounds Cardio: Rate: regular rate GI: Palpation (GI): Soft to palpation Neuro: General: patient oriented x3 and moves all extremities Objective Data Labs 09/10/22 06:12 09/10/22 06:12 Labs: Laboratory Results - last 24 hr 09/10/22 09/10/22 06:12 06:12 WBC 15.4 H RBC 3.31 L Hgb 9.6 L Hct 28.4 L MCV 85.8 MCH 29.0 MCHC 33.8 RDW 14.7 Plt Count 363 MPV 9.7 Absolute Nucleated RBC 0.000 Nucleated RBC % (auto) 0.0 Sodium 136 Potassium 4.3 Chloride 101 Carbon Dioxide 22 Anion Gap 17 BUN 72 H Creatinine 7.60 H* Estim Creat Clear Calc 13.4 Estimated GFR 8 Random Glucose 104 Calcium 8.2 L Total Bilirubin 0.7 AST 26 ALT 55 H Alkaline Phosphatase 83 Total Creatine Kinase 273 H Total Protein 5.3 L Albumin 2.9 L Microbiology Microbiology Results: Microbiology 08/30/22 21:00 Blood - Venous Blood Culture - Final No growth after 5 days. 08/30/22 21:00 Blood - Venous Blood Culture - Final No growth after 5 days. Procedures Date of Service Date of Service: 09/10/22 Assessment & Plan Assessment and plan (1) OLIVIA (acute kidney injury): Status: Acute Assessment and Plan: OLIVIA due to heme pigment nephrotoxicity normal baseline kidney function s/p temporary dialysis catheter placement UO better today Shall keep him on HD TTS schedule for now monitor urine output and watch for renal recovery.? Hold? PermCath for now given better UO today Vascular to follow up regarding the foot Outpt HD spot requested with DIEUDONNE( Details given to DIEUDONNE GARMENT INSPECTOR)( just in case) Progress Note: Quality Stroke Does the patient have a stroke diagnosis?: No
[2022-09-10] MEDS: clonazePAM 1 MG TABLET PO ×2 (11:16→20:04)
[2022-09-10] MEDS: Docusate Sodium 100 MG CAPSULE 200 MG PO (11:16)
[2022-09-10] MEDS: oxyCODONE HCl Immed Release 5 MG TABLET 10 MG PO ×2 (14:44→20:05)
[2022-09-10] MEDS: Mirtazapine 30 MG TABLET PO (20:03)
[2022-09-10] MEDS: traZODone HCL 100 MG TABLET PO (20:04)
[2022-09-10] MEDS: OLANZapine 10 MG TABLET 20 MG PO (20:04)
[2022-09-11] VITALS (7 sets, daily range): BP systolic 117–160; BP diastolic 66–81; PULSE 93–113; RESP 14–20; TEMP 36.3–37; O2SAT 94–97; BMI 31.5
[2022-09-11 06:47] LABS: Anion Gap 17 (12-20); Blood Urea Nitrogen 85 mg/dL (9-16); Carbon Dioxide 23 mmol/L (22-29); Chloride 105 mmol/L (96-108); Creatinine Clr Calc Pharmacy 11.7; Estimated Glomerular Filt Rate 7; Glucose Random 95 mg/dL (60-115); Potassium 4.4 mmol/L (3.3-5.1); Sodium 141 mmol/L (135-145)
[2022-09-11] MEDS: 0.9 % Sodium Chloride Flush 3 ML SYRINGE IVFLUSH ×3 (09:28→23:57)
[2022-09-11] MEDS: Sertraline HCL 50 MG TABLET 150 MG PO (09:29)
[2022-09-11] MEDS: clonazePAM 1 MG TABLET PO ×2 (09:29→20:29)
[2022-09-11] MEDS: Docusate Sodium 100 MG CAPSULE 200 MG PO (09:29)
[2022-09-11] MEDS: oxyCODONE HCl Immed Release 5 MG TABLET 10 MG PO ×4 (09:34→21:44)
--- NOTE | 2022-09-11 10:28 | MHC.CM.PN ---
Per ROUNDS discussion, Patient is not yet medically cleared for dc (OLIVIA,New HD); PT is recommending STR and CM will continue to follow.
--- NOTE | 2022-09-11 11:02 | P.PNIM_ITS ---
Subjective Subjective Date of Service: 09/11/22 Interval History: blister on L foot burst pain control improved NPO for possible tunnel cath Review of Systems Review of Systems: Yes all other systems are reviewed and are negative Physical Exam Vital Signs: Vital Signs: Last Vital Signs Temp 98.1 F 09/11/22 07:32 Pulse 104 H 09/11/22 07:32 Resp 20 09/11/22 07:32 BP 132/75 09/11/22 07:32 Pulse Ox 96 09/11/22 07:32 O2 Del Method Room Air 09/11/22 07:32 O2 Flow Rate 2 09/06/22 11:54 BMI result Body Mass Index 31.5 Gen: NAD HEENT: sclera anicteric, moist mucus membranes Neck: supple Lungs: clear to auscultation bilaterally Heart: regular rate and rhythm, no murmurs Abd: soft, non-tender, non-distended Ext: swollen fingers and toes bilaterally Skin: dark bluish discoloration of distal aspect of toes bilaterally with clear fluid-filled blisters Neuro: alert and oriented x3, BLE strength 1/5, BUE strength 3/5 Psych: appropriate affect Objective Data Active Medications Acetaminophen (Acetaminophen 325 Mg Tablet) 650 mg PO Q6H PRN PRN Reason: Pain, Mild (Pain Scale 1-3) Last Admin: 09/10/22 08:18 Dose: 650 mg Documented By: JOSUE Bupropion HCl (Bupropion Hcl 100 Mg Tablet) 150 mg PO Q72H [facility] Last Admin: 09/09/22 09:33 Dose: 150 mg Documented By: JOSUE Calcium Carbonate (Calcium Carbonate 500 Mg Tablet) 500 mg PO TID [facility] Last Admin: 09/11/22 09:28 Dose: 500 mg Documented By: AJIT Clonazepam (Clonazepam 1 Mg Tablet) 1 mg PO BID [facility] Last Admin: 09/11/22 09:29 Dose: 1 mg Documented By: AJIT Docusate Sodium (Docusate Sodium 100 Mg Capsule) 200 mg PO DAILY [facility] Last Admin: 09/11/22 09:29 Dose: 200 mg Documented By: AJIT Heparin Sodium (Porcine) (Heparin Sodium,Porcine 5,000 Unit/Ml Vial) 5,000 unit SUBCUT BID [facility] Last Admin: 09/11/22 10:08 Dose: Not Given Documented By: AJIT Non-Admin Reason: hold for surgery Hydroxyzine HCl (Hydroxyzine Hcl 50 Mg Tablet) 50 mg PO BID PRN PRN Reason: Anxiety Sodium Chloride (Ns) 1,000 mls @ 125 mls/hr IVCONT .Q8H [facility] Mirtazapine (Mirtazapine 30 Mg Tablet) 30 mg PO BEDTIME [facility] Last Admin: 09/10/22 20:03 Dose: 30 mg Documented By: BOLIVAR Olanzapine (Olanzapine 10 Mg Tablet) 20 mg PO BEDTIME [facility] Last Admin: 09/10/22 20:04 Dose: 20 mg Documented By: BOLIVAR Ondansetron HCl (Ondansetron Hcl 4 Mg/2 Ml Vial) 4 mg IVPUSH Q8H PRN PRN Reason: Nausea and Vomiting Oxycodone HCl (Oxycodone Hcl Immed Release 5 Mg Tablet) 10 mg PO Q4H PRN PRN Reason: Pain, Severe (Pain Scale 7-10) Last Admin: 09/11/22 09:34 Dose: 10 mg Documented By: AJIT Polyethylene Glycol (Polyethylene Glycol 3350 17 Gm Powd.Pack) 17 gm PO DAILY [facility] Last Admin: 09/11/22 09:29 Dose: Not Given Documented By: AJIT Non-Admin Reason: Patient Refused Sertraline HCl (Sertraline Hcl 50 Mg Tablet) 150 mg PO DAILY [facility] Last Admin: 09/11/22 09:29 Dose: 150 mg Documented By: AJIT Sodium Chloride (0.9 % Sodium Chloride Flush 3 Ml Syringe) 3 ml IVFLUSH QSHIFT [facility] Last Admin: 09/11/22 09:28 Dose: 3 ml Documented By: AJIT Trazodone HCl (Trazodone Hcl 100 Mg Tablet) 100 mg PO BEDTIME [facility] Last Admin: 09/10/22 20:04 Dose: 100 mg Documented By: BOLIVAR Labs 09/10/22 06:12 09/11/22 05:48 Labs: Laboratory Results - last 24 hr 09/11/22 05:48 Anion Gap 17 Estim Creat Clear Calc 11.7 Estimated GFR 7 Random Glucose 95 Calcium 9.0 D Assessment and Plan (1) Frostbite: Status: Acute (2) Hyperkalemia: Status: Acute (3) OLIVIA (acute kidney injury): Status: Acute (4) Rhabdomyolysis: Status: Acute Plan d#13 52yo homeless M with anxiety + depression, opioid dependence, PTSD presenting with severe BLE weakness after immobility x3d, admitted for OLIVIA due to rh abdomyolysis; was down for estimated 2-3d # OLIVIA due to rhabdomyolysis (pigment nephrotoxicity) - dialyzed TuThSa, discuss conversion to Permacath with Nephrology # weakness - question of flexion myelopathy; MRI thoracic spine showed extensive T2 signal change involving the paraspinal musculature possibly sequela of rhabdomyolysis, no definite thoracic cord signal changes noted. - continue physical therapy patient, requiring significant assist for all functional mobility, requiring [place] for transfers. 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 # hyperK - resolved p 1 dose SZC # frostbite - being followed by General surgery no surgical intervention planned; continue to monitor for necrosis. - pain control with oxycodone prn- increase dose # polysubstance abuse - Addiction Medicine consulted- declined medication for opioid use disorder # mood disorder - continue bupropion [renally dosed], clonazepam, mirtapazine, olanzapine, sertraline, and trazodone; no behavioral issues noted # VTE ppx: UFH # dispo: will need prolonged rehab In my clinical judgment, the patient requires continued inpatient hospitalization for the following reasons: OLIVIA, HD Time Spent With Patient Time: Total time managing care of this patient today __35__ minutes. Quality Stroke Does the patient have a stroke diagnosis?: No VTE Prior VTE?: No VTE Risk Level:: Medical - moderate - high VTE Device Contraindication: Treatment Not Indicated VTE Drug Contraindication: N/A - Med Ordered
[2022-09-11] MEDS: 0.9 % Sodium Chloride 1,000 ML 125 ML IVCONT (11:23)
--- NOTE | 2022-09-11 12:23 | MHC.CLN ---
F/U PO INTAKE 50-100% DIET RX: REGULAR-APPROPRIATE PT RECEIVING ENSURE TID TO INCREASE KCALS AND PROMOTE WOUND HEALING SUPPLEMENT PROVIDES 1050KCALS, 60G PROTEIN MONITOR PO INTAKE AND SUPP ACCEPTANCE
--- NOTE | 2022-09-11 16:50 | PM.PNNEP ---
Subjective Subjective Date of Service: 09/11/22 Interval history: Seen and examined, events noted Incr UOP; Denies Uremic SXMS Physical Exam Vital Signs: Vital Signs: Last Vital Signs Temp 97.5 F 09/11/22 15:54 Pulse 106 H 09/11/22 15:54 Resp 20 09/11/22 15:54 BP 139/76 09/11/22 15:54 Pulse Ox 96 09/11/22 15:54 O2 Del Method Room Air 09/11/22 15:54 O2 Flow Rate 2 09/06/22 11:54 BMI result Body Mass Index 31.5 Const: General: no acute distress; No confusion Orientation/consciousness: patient oriented x3 and No confusion HEENT: Head: Yes normocephalic and Yes atraumatic Eyes: EOM: EOMs intact bilaterally Neck: Neck: Yes supple Resp: Auscultation: clear to auscultation bilaterally and diminished lung sounds Cardio: Rate: regular rate Heart sounds: S1 normal heart sound present and S2 normal heart sound present GI: Palpation (GI): Soft to palpation and nontender Neuro: General: patient oriented x3, moves all extremities and No confusion Extrem: General: Yes edema Objective Data Labs 09/10/22 06:12 09/11/22 05:48 Labs: Laboratory Results - last 24 hr 09/11/22 05:48 Sodium 141 Potassium 4.4 Chloride 105 Carbon Dioxide 23 Anion Gap 17 BUN 85 H Creatinine 8.42 H* Estim Creat Clear Calc 11.7 Estimated GFR 7 Random Glucose 95 Calcium 9.0 D Microbiology Microbiology Results: Microbiology 08/30/22 21:00 Blood - Venous Blood Culture - Final No growth after 5 days. 08/30/22 21:00 Blood - Venous Blood Culture - Final No growth after 5 days. Procedures Date of Service Date of Service: 09/11/22 Assessment & Plan Assessment and plan (1) OLIVIA (acute kidney injury): Status: Acute Assessment and Plan: - Non-Oliguric OLIVIA: c/w Rhabdo ATN s/p HD x 2 and now inr UOP so will hold off on HD and reassess in am - Rhabdo: decr PKs - Wounds as noted REC: hold HDtoday and reassess tomorrow as to if he needs additional HD Time Spent With Patient Time: Total time managing care of this patient today ____ minutes. Progress Note: Quality Stroke Does the patient have a stroke diagnosis?: No
[2022-09-11] MEDS: Mirtazapine 30 MG TABLET PO (20:29)
[2022-09-11] MEDS: OLANZapine 10 MG TABLET 20 MG PO (20:29)
[2022-09-11] MEDS: Heparin Sodium,Porcine 5,000 UNIT/ML VIAL 5000 UNIT SUBCUT (20:30)
[2022-09-11] MEDS: traZODone HCL 100 MG TABLET PO (20:50)
[2022-09-12] VITALS (7 sets, daily range): BP systolic 115–138; BP diastolic 76–83; PULSE 93–107; RESP 17–20; TEMP 36.4–37.6; O2SAT 94–97; BMI 32.8
[2022-09-12 06:55] LABS: Anion Gap 14 (12-20); Blood Urea Nitrogen 85 mg/dL (9-16); Calcium 8.9 mg/dL (8.4-10.2); Carbon Dioxide 23 mmol/L (22-29); Chloride 106 mmol/L (96-108); Creatinine Clr Calc Pharmacy 12.2; Estimated Glomerular Filt Rate 7; Glucose Random 94 mg/dL (60-115); Magnesium 2.4 mg/dL (1.6-2.6); Phosphorus 6.6 mg/dL (2.7-4.5); Potassium 4.1 mmol/L (3.3-5.1); Sodium 139 mmol/L (135-145)
[2022-09-12] MEDS: buPROPion HCL 100 MG TABLET 150 MG PO (08:56)
[2022-09-12] MEDS: Docusate Sodium 100 MG CAPSULE 200 MG PO (08:57)
[2022-09-12] MEDS: clonazePAM 1 MG TABLET PO ×2 (08:57→20:15)
[2022-09-12] MEDS: oxyCODONE HCl Immed Release 5 MG TABLET 10 MG PO ×3 (08:57→18:17)
[2022-09-12] MEDS: Heparin Sodium,Porcine 5,000 UNIT/ML VIAL 5000 UNIT SUBCUT ×2 (08:58→20:15)
[2022-09-12] MEDS: Sertraline HCL 50 MG TABLET 150 MG PO (08:58)
[2022-09-12] MEDS: 0.9 % Sodium Chloride Flush 3 ML SYRINGE IVFLUSH ×3 (09:00→20:15)
--- NOTE | 2022-09-12 10:57 | P.PNIM_ITS ---
Subjective Subjective Date of Service: 09/12/22 Interval History: Strength improved BUN/Cr stable Urinating well Foot pain under control Review of Systems Review of Systems: Yes all other systems are reviewed and are negative Physical Exam Vital Signs: Vital Signs: Last Vital Signs Temp 97.5 F 09/12/22 10:39 Pulse 93 09/12/22 10:39 Resp 20 09/12/22 10:39 BP 126/76 09/12/22 10:39 Pulse Ox 96 09/12/22 10:39 O2 Del Method Room Air 09/12/22 10:39 O2 Flow Rate 2 09/06/22 11:54 BMI result Body Mass Index 32.8 Gen: NAD HEENT: sclera anicteric, moist mucus membranes Neck: supple Lungs: clear to auscultation bilaterally Heart: regular rate and rhythm, no murmurs Abd: soft, non-tender, non-distended Ext: swollen fingers and toes bilaterally Skin: dark bluish discoloration of distal aspect of toes bilaterally with clear fluid-filled blisters Neuro: alert and oriented x3, BLE strength 3/5, BUE strength 4/5 Psych: appropriate affect Objective Data Active Medications Acetaminophen (Acetaminophen 325 Mg Tablet) 650 mg PO Q6H PRN PRN Reason: Pain, Mild (Pain Scale 1-3) Last Admin: 09/10/22 08:18 Dose: 650 mg Documented By: JOSUE Bupropion HCl (Bupropion Hcl 100 Mg Tablet) 150 mg PO Q72H [facility] Last Admin: 09/12/22 08:56 Dose: 150 mg Documented By: FIFI Calcium Carbonate (Calcium Carbonate 500 Mg Tablet) 500 mg PO TID [facility] Last Admin: 09/12/22 08:56 Dose: 500 mg Documented By: FIFI Clonazepam (Clonazepam 1 Mg Tablet) 1 mg PO BID [facility] Last Admin: 09/12/22 08:57 Dose: 1 mg Documented By: FIFI Docusate Sodium (Docusate Sodium 100 Mg Capsule) 200 mg PO DAILY [facility] Last Admin: 09/12/22 08:57 Dose: 200 mg Documented By: FIFI Heparin Sodium (Porcine) (Heparin Sodium,Porcine 5,000 Unit/Ml Vial) 5,000 unit SUBCUT BID [facility] Last Admin: 09/12/22 08:58 Dose: 5,000 unit Documented By: FIFI Hydroxyzine HCl (Hydroxyzine Hcl 50 Mg Tablet) 50 mg PO BID PRN PRN Reason: Anxiety Mirtazapine (Mirtazapine 30 Mg Tablet) 30 mg PO BEDTIME [facility] Last Admin: 09/11/22 20:29 Dose: 30 mg Documented By: SILVANO Olanzapine (Olanzapine 10 Mg Tablet) 20 mg PO BEDTIME [facility] Last Admin: 09/11/22 20:29 Dose: 20 mg Documented By: SILVANO Ondansetron HCl (Ondansetron Hcl 4 Mg/2 Ml Vial) 4 mg IVPUSH Q8H PRN PRN Reason: Nausea and Vomiting Oxycodone HCl (Oxycodone Hcl Immed Release 5 Mg Tablet) 10 mg PO Q4H PRN PRN Reason: Pain, Severe (Pain Scale 7-10) Last Admin: 09/12/22 08:57 Dose: 10 mg Documented By: FIFI Polyethylene Glycol (Polyethylene Glycol 3350 17 Gm Powd.Pack) 17 gm PO DAILY [facility] Last Admin: 09/12/22 09:01 Dose: Not Given Documented By: FIFI Non-Admin Reason: Patient Refused Sertraline HCl (Sertraline Hcl 50 Mg Tablet) 150 mg PO DAILY [facility] Last Admin: 09/12/22 08:58 Dose: 150 mg Documented By: FIFI Sodium Chloride (0.9 % Sodium Chloride Flush 3 Ml Syringe) 3 ml IVFLUSH QSHIFT [facility] Last Admin: 09/12/22 09:00 Dose: 3 ml Documented By: FIFI Trazodone HCl (Trazodone Hcl 100 Mg Tablet) 100 mg PO BEDTIME [facility] Last Admin: 09/11/22 20:50 Dose: 100 mg Documented By: SILVANO Labs 09/10/22 06:12 09/12/22 05:46 Labs: Laboratory Results - last 24 hr 09/12/22 05:46 Anion Gap 14 Estim Creat Clear Calc 12.2 Estimated GFR 7 Random Glucose 94 Calcium 8.9 Phosphorus 6.6 H Magnesium 2.4 Assessment and Plan (1) Frostbite: Status: Acute (2) Hyperkalemia: Status: Acute (3) OLIVIA (acute kidney injury): Status: Acute (4) Rhabdomyolysis: Status: Acute Plan d#14 52yo homeless M with anxiety + depression, opioid dependence, PTSD presenting with severe BLE weakness after immobility x3d, admitted for OLIVIA due to rhabdomyolysis; was down for estimated 2-3d # OLIVIA due to rhabdomyolysis (pigment nephrotoxicity) - dialyzed through temp catheter, hold off on Permacath watching for renal recovery, Nephrology following # weakness - question of flexion myelopathy; MRI thoracic spine showed extensive T2 signal change involving the paraspinal musculature possibly sequela of rhabdomyolysis, no definite thoracic cord signal changes noted. - continue physical therapy patient, requiring significant assist for all functional mobility, requiring [place] for transfers. 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 # hyperK - resolved p 1 dose SZC # frostbite - being followed by General surgery no surgical intervention planned; continue to monitor for necrosis. - pain control with oxycodone prn- increase dose # polysubstance abuse - Addiction Medicine consulted- declined medication for opioid use disorder # mood disorder - continue bupropion [renally dosed], clonazepam, mirtapazine, olanzapine, sertraline, and trazodone; no behavioral issues noted # VTE ppx: UFH # dispo: will need prolonged rehab In my clinical judgment, the patient requires continued inpatient hospitalization for the following reasons: OLIVIA, HD Time Spent With Patient Time: Total time managing care of this patient today ____ minutes. Quality Stroke Does the patient have a stroke diagnosis?: No VTE Prior VTE?: No VTE Risk Level:: Medical - moderate - high VTE Device Contraindication: Treatment Not Indicated VTE Drug Contraindication: N/A - Med Ordered
--- NOTE | 2022-09-12 15:08 | PM.PNNEP ---
Subjective Subjective Date of Service: 09/12/22 Interval history: Seen and examined, events noted Physical Exam Vital Signs: Vital Signs: Last Vital Signs Temp 97.5 F 09/12/22 10:39 Pulse 93 09/12/22 10:39 Resp 20 09/12/22 10:39 BP 126/76 09/12/22 10:39 Pulse Ox 96 09/12/22 10:39 O2 Del Method Room Air 09/12/22 10:39 O2 Flow Rate 2 09/06/22 11:54 BMI result Body Mass Index 32.8 Const: General: no acute distress; No confusion Orientation/consciousness: patient oriented x3 and No confusion HEENT: Head: Yes normocephalic and Yes atraumatic Eyes: EOM: EOMs intact bilaterally Neck: Neck: Yes supple Resp: Auscultation: clear to auscultation bilaterally and diminished lung sounds Cardio: Rate: regular rate Heart sounds: S1 normal heart sound present and S2 normal heart sound present GI: Palpation (GI): Soft to palpation and nontender Neuro: General: patient oriented x3, moves all extremities and No confusion Extrem: General: Yes edema Objective Data Labs 09/10/22 06:12 09/12/22 05:46 Labs: Laboratory Results - last 24 hr 09/12/22 05:46 Sodium 139 Potassium 4.1 Chloride 106 Carbon Dioxide 23 Anion Gap 14 BUN 85 H Creatinine 8.26 H* Estim Creat Clear Calc 12.2 Estimated GFR 7 Random Glucose 94 Calcium 8.9 Phosphorus 6.6 H Magnesium 2.4 Microbiology Microbiology Results: Microbiology 08/30/22 21:00 Blood - Venous Blood Culture - Final No growth after 5 days. 08/30/22 21:00 Blood - Venous Blood Culture - Final No growth after 5 days. Procedures Date of Service Date of Service: 09/12/22 Assessment & Plan Assessment and plan (1) OLIVIA (acute kidney injury): Status: Acute Assessment and Plan: - Non-Oliguric OLIVIA: c/w Rhabdo ATN s/p HD x 2 and now inr UOP and SCr stable--- so will hold off on HD and reassess in am - Rhabdo: decr CPKs - Wounds as noted - Hyperphos REC: hold HD today and reassess tomorrow as to if he needs additional H; renvela if Phos incr further will follow w team Time Spent With Patient Time: Total time managing care of this patient today ____ minutes. Progress Note: Quality Stroke Does the patient have a stroke diagnosis?: No
[2022-09-12] MEDS: Acetaminophen 325 MG TABLET 650 MG PO (18:16)
[2022-09-12] MEDS: OLANZapine 10 MG TABLET 20 MG PO (20:14)
[2022-09-12] MEDS: Mirtazapine 30 MG TABLET PO (20:15)
[2022-09-12] MEDS: traZODone HCL 100 MG TABLET PO (20:15)
[2022-09-13] VITALS (7 sets, daily range): BP systolic 121–141; BP diastolic 63–85; PULSE 94–109; RESP 16–18; TEMP 36.8–37.6; O2SAT 94–96; BMI 32.5
--- NOTE | 2022-09-13 05:12 | PC.NURSE ---
Pt had two accidental spills of the urinal. This RN also notices his HR increases to the 130s when he is using the urinal. Otherwise uneventful night. Pt has steady respirations and is calm. Will continue to monitor.
[2022-09-13 06:39] LABS: Anion Gap 17 (12-20); Blood Urea Nitrogen 83 mg/dL (9-16); Calcium 9.2 mg/dL (8.4-10.2); Carbon Dioxide 23 mmol/L (22-29); Chloride 105 mmol/L (96-108); Creatinine Clr Calc Pharmacy 13.1; Estimated Glomerular Filt Rate 7; Glucose Random 108 mg/dL (60-115); Potassium 3.8 mmol/L (3.3-5.1); Sodium 141 mmol/L (135-145)
[2022-09-13 08:01] LABS: Phosphorus 5.9 mg/dL (2.7-4.5)
[2022-09-13] MEDS: oxyCODONE HCl Immed Release 5 MG TABLET 10 MG PO ×3 (09:09→20:40)
[2022-09-13] MEDS: Docusate Sodium 100 MG CAPSULE 200 MG PO (09:09)
[2022-09-13] MEDS: clonazePAM 1 MG TABLET PO ×2 (09:09→20:40)
[2022-09-13] MEDS: Heparin Sodium,Porcine 5,000 UNIT/ML VIAL 5000 UNIT SUBCUT ×2 (09:10→20:40)
[2022-09-13] MEDS: Sertraline HCL 50 MG TABLET 150 MG PO (09:10)
[2022-09-13] MEDS: 0.9 % Sodium Chloride Flush 3 ML SYRINGE IVFLUSH ×3 (09:11→20:41)
--- NOTE | 2022-09-13 09:42 | HO.PM.IMPN ---
Subjective Subjective Date of Service: 09/13/22 Interval History: weakness improving SCr improved Review of Systems Review of Systems: Yes all other systems are reviewed and are negative Physical Exam Vital Signs: Vital Signs: Last Vital Signs Temp 99.3 F 09/13/22 07:20 Pulse 109 H 09/13/22 07:20 Resp 18 09/13/22 07:20 BP 127/63 09/13/22 07:20 Pulse Ox 95 09/13/22 07:20 O2 Del Method Room Air 09/13/22 07:20 O2 Flow Rate 2 09/06/22 11:54 BMI result Body Mass Index 32.5 Gen: NAD HEENT: sclera anicteric, moist mucus membranes Neck: supple Lungs: clear to auscultation bilaterally Heart: regular rate and rhythm, no murmurs Abd: soft, non-tender, non-distended Ext: swollen fingers and toes bilaterally Skin: dark bluish discoloration of distal aspect of toes bilaterally with clear fluid-filled blisters Neuro: alert and oriented x3, BLE strength 3/5, BUE strength 4/5 Psych: appropriate affect Objective Data Active Medications Acetaminophen (Acetaminophen 325 Mg Tablet) 650 mg PO Q6H PRN PRN Reason: Pain, Mild (Pain Scale 1-3) Last Admin: 09/12/22 18:16 Dose: 650 mg Documented By: MARGIE Bupropion HCl (Bupropion Hcl 100 Mg Tablet) 150 mg PO Q72H [facility] Last Admin: 09/12/22 08:56 Dose: 150 mg Documented By: FIFI Calcium Carbonate (Calcium Carbonate 500 Mg Tablet) 500 mg PO TID [facility] Last Admin: 09/13/22 09:10 Dose: 500 mg Documented By: NELLY Clonazepam (Clonazepam 1 Mg Tablet) 1 mg PO BID [facility] Last Admin: 09/13/22 09:09 Dose: 1 mg Documented By: NELLY Docusate Sodium (Docusate Sodium 100 Mg Capsule) 200 mg PO DAILY [facility] Last Admin: 09/13/22 09:09 Dose: 200 mg Documented By: NELLY Heparin Sodium (Porcine) (Heparin Sodium,Porcine 5,000 Unit/Ml Vial) 5,000 unit SUBCUT BID [facility] Last Admin: 09/13/22 09:10 Dose: 5,000 unit Documented By: NELLY Hydroxyzine HCl (Hydroxyzine Hcl 50 Mg Tablet) 50 mg PO BID PRN PRN Reason: Anxiety Mirtazapine (Mirtazapine 30 Mg Tablet) 30 mg PO BEDTIME [facility] Last Admin: 09/12/22 20:15 Dose: 30 mg Documented By: ELIZABETH Olanzapine (Olanzapine 10 Mg Tablet) 20 mg PO BEDTIME [facility] Last Admin: 09/12/22 20:14 Dose: 20 mg Documented By: ELIZABETH Ondansetron HCl (Ondansetron Hcl 4 Mg/2 Ml Vial) 4 mg IVPUSH Q8H PRN PRN Reason: Nausea and Vomiting Oxycodone HCl (Oxycodone Hcl Immed Release 5 Mg Tablet) 10 mg PO Q4H PRN PRN Reason: Pain, Severe (Pain Scale 7-10) Last Admin: 09/13/22 09:09 Dose: 10 mg Documented By: NELLY Polyethylene Glycol (Polyethylene Glycol 3350 17 Gm Powd.Pack) 17 gm PO DAILY [facility] Last Admin: 09/13/22 09:11 Dose: Not Given Documented By: NELLY Non-Admin Reason: Patient Refused Sertraline HCl (Sertraline Hcl 50 Mg Tablet) 150 mg PO DAILY [facility] Last Admin: 09/13/22 09:10 Dose: 150 mg Documented By: NELLY Sodium Chloride (0.9 % Sodium Chloride Flush 3 Ml Syringe) 3 ml IVFLUSH QSHIFT [facility] Last Admin: 09/13/22 09:11 Dose: 3 ml Documented By: NELLY Trazodone HCl (Trazodone Hcl 100 Mg Tablet) 100 mg PO BEDTIME [facility] Last Admin: 09/12/22 20:15 Dose: 100 mg Documented By: ELIZABETH Labs 09/10/22 06:12 09/13/22 05:53 Labs: Laboratory Results - last 24 hr 09/13/22 05:53 Anion Gap 17 Estim Creat Clear Calc 13.1 Estimated GFR 7 Random Glucose 108 Calcium 9.2 Phosphorus 5.9 H Assessment and Plan (1) Frostbite: Status: Acute (2) Hyperkalemia: Status: Acute (3) OLIVIA (acute kidney injury): Status: Acute (4) Rhabdomyolysis: Status: Acute Plan d#15 52yo homeless M with anxiety + depression, opioid dependence, PTSD presenting with severe BLE weakness after immobility x3d, admitted for OLIVIA due to rhabdomyolysis; was down for estimated 2-3d # OLIVIA due to rhabdomyolysis (pigment nephrotoxicity) - dialyzed through temp catheter, hold off on Permacath watching for renal recovery, Nephrology following - monitor BMP daily # hyperphosphatemia - improved, no indication for binders at this time # hyperK - resolved p 1 dose SZC # weakness - due to question of flexion myelopathy, MRI of thoracic spine was done and showed extensive T2 signal change involving the paraspinal musculature possibly sequela of rhabdomyolysis, but no definite thoracic cord signal changes noted - continue physical therapy daily and will require prolonged rehabilitation course # toxic-metabolic 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 # frostbite - being followed by General surgery no surgical intervention planned; continue to monitor for necrosis. - pain control with oxycodone prn - Betadine soaks daily # polysubstance abuse - Addiction Medicine consulted- declined medication for opioid use disorder # mood disorder - continue bupropion [renally dosed], clonazepam, mirtapazine, olanzapine, sertraline, and trazodone; no behavioral issues noted # VTE ppx: UFH # dispo: will need prolonged rehab In my clinical judgment, the patient requires continued inpatient hospitalization for the following reasons: OLIVIA Time Spent With Patient Time: Total time managing care of this patient today _40___ minutes. Quality Stroke Does the patient have a stroke diagnosis?: No VTE Prior VTE?: No VTE Risk Level:: Medical - moderate - high VTE Device Contraindication: Treatment Not Indicated VTE Drug Contraindication: N/A - Med Ordered
--- NOTE | 2022-09-13 10:16 | MHC.CM.PN ---
Per ROUNDS discussion, Patient is not yet medically cleared for dc but is improving with renal function. STR is the recommendation by PT and CM will continue to follow.
[2022-09-13] MEDS: Acetaminophen 325 MG TABLET 650 MG PO (11:34)
[2022-09-13] MEDS: OLANZapine 10 MG TABLET 20 MG PO (20:40)
[2022-09-13] MEDS: traZODone HCL 100 MG TABLET PO (20:40)
[2022-09-13] MEDS: Mirtazapine 30 MG TABLET PO (20:40)
--- NOTE | 2022-09-13 22:30 | PM.PNNEP ---
Subjective Subjective Date of Service: 09/13/22 Interval history: Seen and examined, event snoted Physical Exam Vital Signs: Vital Signs: Last Vital Signs Temp 98.3 F 09/13/22 19:34 Pulse 95 09/13/22 19:34 Resp 17 09/13/22 19:34 BP 141/85 H 09/13/22 19:34 Pulse Ox 96 09/13/22 19:34 O2 Del Method Room Air 09/13/22 19:34 O2 Flow Rate 2 09/06/22 11:54 BMI result Body Mass Index 32.5 Const: General: no acute distress; No confusion Orientation/consciousness: patient oriented x3 and No confusion HEENT: Head: Yes normocephalic and Yes atraumatic Eyes: EOM: EOMs intact bilaterally Neck: Neck: Yes supple Resp: Auscultation: clear to auscultation bilaterally and diminished lung sounds Cardio: Rate: regular rate Heart sounds: S1 normal heart sound present and S2 normal heart sound present GI: Palpation (GI): Soft to palpation and nontender Neuro: General: patient oriented x3, moves all extremities and No confusion Extrem: General: Yes edema Objective Data Labs 09/10/22 06:12 09/13/22 05:53 Labs: Laboratory Results - last 24 hr 09/13/22 05:53 Sodium 141 Potassium 3.8 Chloride 105 Carbon Dioxide 23 Anion Gap 17 BUN 83 H Creatinine 7.66 H* Estim Creat Clear Calc 13.1 Estimated GFR 7 Random Glucose 108 Calcium 9.2 Phosphorus 5.9 H Microbiology Microbiology Results: Microbiology 08/30/22 21:00 Blood - Venous Blood Culture - Final No growth after 5 days. 08/30/22 21:00 Blood - Venous Blood Culture - Final No growth after 5 days. Procedures Date of Service Date of Service: 09/13/22 Assessment & Plan Assessment and plan (1) OLIVIA (acute kidney injury): Status: Acute Assessment and Plan: - Non-Oliguric OLIVIA: c/w Rhabdo ATN s/p HD x 2 and now inr UOP and SCr stable--- so will cont to hold off on HD and reassess in am - Rhabdo: decr CPKs - Wounds as noted - Hyperphos REC: again hold HD today and reassess tomorrow as to see if he needs additional HD; renvela if Phos incr further will follow w team Time Spent With Patient Time: Total time managing care of this patient today ____ minutes. Progress Note: Quality Stroke Does the patient have a stroke diagnosis?: No
[2022-09-14 02:52] VITALS: BP 141/85; PULSE 92; RESP 18; TEMP 36.9; O2SAT 95
[2022-09-14 05:39] VITALS: BMI 32.3
[2022-09-14 07:15] LABS: Anion Gap 17 (12-20); Carbon Dioxide 24 mmol/L (22-29); Chloride 105 mmol/L (96-108); Potassium 3.9 mmol/L (3.3-5.1); Sodium 142 mmol/L (135-145)
[2022-09-14 07:16] LABS: Blood Urea Nitrogen 74 mg/dL (9-16); Calcium 9.9 mg/dL (8.4-10.2); Creatinine Clr Calc Pharmacy 13.7; Estimated Glomerular Filt Rate 8; Glucose Random 96 mg/dL (60-115); Phosphorus 5.4 mg/dL (2.7-4.5)
[2022-09-14 08:00] VITALS: BP 137/83; PULSE 104; RESP 20; TEMP 36.8; O2SAT 96
[2022-09-14] MEDS: Sertraline HCL 50 MG TABLET 150 MG PO (09:49)
[2022-09-14] MEDS: oxyCODONE HCl Immed Release 5 MG TABLET 10 MG PO ×3 (09:49→18:32)
[2022-09-14] MEDS: Docusate Sodium 100 MG CAPSULE 200 MG PO (09:49)
[2022-09-14] MEDS: Heparin Sodium,Porcine 5,000 UNIT/ML VIAL 5000 UNIT SUBCUT ×2 (09:50→20:18)
[2022-09-14] MEDS: clonazePAM 1 MG TABLET PO ×2 (09:50→20:18)
[2022-09-14] MEDS: 0.9 % Sodium Chloride Flush 3 ML SYRINGE IVFLUSH ×3 (09:51→20:19)
[2022-09-14 09:53] VITALS: BP 137/83; PULSE 104; O2SAT 96
[2022-09-14 11:30] VITALS: BP 134/77; PULSE 90; RESP 20; TEMP 36.7; O2SAT 94
--- NOTE | 2022-09-14 11:47 | PM.PNNEP ---
Subjective Subjective Date of Service: 09/14/22 Interval history: Seen and examined, event snoted Physical Exam Vital Signs: Vital Signs: Last Vital Signs Temp 98.1 F 09/14/22 11:30 Pulse 90 09/14/22 11:30 Resp 20 09/14/22 11:30 BP 134/77 09/14/22 11:30 Pulse Ox 94 09/14/22 11:30 O2 Del Method Room Air 09/14/22 11:30 O2 Flow Rate 2 09/06/22 11:54 BMI result Body Mass Index 32.3 Const: General: no acute distress; No confusion Orientation/consciousness: patient oriented x3 and No confusion HEENT: Head: Yes normocephalic and Yes atraumatic Eyes: EOM: EOMs intact bilaterally Neck: Neck: Yes supple Resp: Auscultation: clear to auscultation bilaterally and diminished lung sounds Cardio: Rate: regular rate Heart sounds: S1 normal heart sound present and S2 normal heart sound present GI: Palpation (GI): Soft to palpation and nontender Neuro: General: patient oriented x3, moves all extremities and No confusion Extrem: General: Yes edema Objective Data Labs 09/10/22 06:12 09/14/22 05:48 Labs: Laboratory Results - last 24 hr 09/14/22 05:48 Sodium 142 Potassium 3.9 Chloride 105 Carbon Dioxide 24 Anion Gap 17 BUN 74 H D Creatinine 7.29 H* Estim Creat Clear Calc 13.7 Estimated GFR 8 Random Glucose 96 Calcium 9.9 D Phosphorus 5.4 H Microbiology Microbiology Results: Microbiology 08/30/22 21:00 Blood - Venous Blood Culture - Final No growth after 5 days. 08/30/22 21:00 Blood - Venous Blood Culture - Final No growth after 5 days. Procedures Date of Service Date of Service: 09/14/22 Assessment & Plan Assessment and plan (1) OLIVIA (acute kidney injury): Status: Acute Assessment and Plan: - Non-Oliguric OLIVIA: c/w Rhabdo ATN s/p HD x 2 and now inr UOP and SCr stable--- so will cont to hold off on HD and reassess in am - Rhabdo: decr CPKs - Wounds as noted - Hyperphos REC: again hold HD today and reassess tomorrow and if SCr cont to decr then will c about removing temp line;; renvela if Phos incr further will follow w team Time Spent With Patient Time: Total time managing care of this patient today ____ minutes. Progress Note: Quality Stroke Does the patient have a stroke diagnosis?: No
[2022-09-14 15:38] VITALS: BP 121/74; PULSE 78; RESP 18; TEMP 36.6; O2SAT 98
--- NOTE | 2022-09-14 16:08 | P.PNIM_ITS ---
Subjective Subjective Date of Service: 09/14/22 Interval History: seen and examined this morning follow up for frostbite, renal failure no overnight events no specific complaints this morning Review of Systems Review of Systems: Yes all other systems are reviewed and are negative Constitutional Constitutional: Denies chills and Denies fever(s) Cardiovascular Cardiovascular: Denies chest pain and Denies dyspnea Respiratory Respiratory: Denies dyspnea Gastrointestinal Gastrointestinal: Denies abdominal pain Physical Exam Vital Signs: Vital Signs: Last Vital Signs Temp 97.8 F 09/14/22 15:38 Pulse 78 09/14/22 15:38 Resp 18 09/14/22 15:38 BP 121/74 09/14/22 15:38 Pulse Ox 98 09/14/22 15:38 O2 Del Method Room Air 09/14/22 15:38 O2 Flow Rate 2 09/06/22 11:54 BMI result Body Mass Index 32.3 Const: General: cooperative, comfortable, alert and awake Nutritional Appearance: average body habitus Orientation/consciousness: patient oriented x3 Resp: Effort & Inspection: normal respiratory effort and able to speak in complete sentences Cardio: Rate: regular rate GI: Palpation (GI): Soft to palpation and nontender Skin: Other: right foot left foot Neuro: General: patient oriented x3 Objective Data Active Medications Acetaminophen (Acetaminophen 325 Mg Tablet) 650 mg PO Q6H PRN PRN Reason: Pain, Mild (Pain Scale 1-3) Last Admin: 09/13/22 11:34 Dose: 650 mg Documented By: NELLY Bupropion HCl (Bupropion Hcl 100 Mg Tablet) 150 mg PO Q72H [facility] Last Admin: 09/12/22 08:56 Dose: 150 mg Documented By: FIFI Calcium Carbonate (Calcium Carbonate 500 Mg Tablet) 500 mg PO TID [facility] Last Admin: 09/14/22 14:05 Dose: 500 mg Documented By: AJIT Clonazepam (Clonazepam 1 Mg Tablet) 1 mg PO BID [facility] Last Admin: 09/14/22 09:50 Dose: 1 mg Documented By: AJIT Docusate Sodium (Docusate Sodium 100 Mg Capsule) 200 mg PO DAILY [facility] Last Admin: 09/14/22 09:49 Dose: 200 mg Documented By: AJIT Heparin Sodium (Porcine) (Heparin Sodium,Porcine 5,000 Unit/Ml Vial) 5,000 unit SUBCUT BID [facility] Last Admin: 09/14/22 09:50 Dose: 5,000 unit Documented By: AJIT Hydroxyzine HCl (Hydroxyzine Hcl 50 Mg Tablet) 50 mg PO BID PRN PRN Reason: Anxiety Mirtazapine (Mirtazapine 30 Mg Tablet) 30 mg PO BEDTIME [facility] Last Admin: 09/13/22 20:40 Dose: 30 mg Documented By: ELIZABETH Olanzapine (Olanzapine 10 Mg Tablet) 20 mg PO BEDTIME [facility] Last Admin: 09/13/22 20:40 Dose: 20 mg Documented By: ELIZABETH Ondansetron HCl (Ondansetron Hcl 4 Mg/2 Ml Vial) 4 mg IVPUSH Q8H PRN PRN Reason: Nausea and Vomiting Oxycodone HCl (Oxycodone Hcl Immed Release 5 Mg Tablet) 10 mg PO Q4H PRN PRN Reason: Pain, Severe (Pain Scale 7-10) Last Admin: 09/14/22 14:05 Dose: 10 mg Documented By: AJIT Polyethylene Glycol (Polyethylene Glycol 3350 17 Gm Powd.Pack) 17 gm PO DAILY [facility] Last Admin: 09/14/22 09:51 Dose: Not Given Documented By: AJIT Non-Admin Reason: Patient Refused Sertraline HCl (Sertraline Hcl 50 Mg Tablet) 150 mg PO DAILY [facility] Last Admin: 09/14/22 09:49 Dose: 150 mg Documented By: AJIT Sodium Chloride (0.9 % Sodium Chloride Flush 3 Ml Syringe) [facility] Last Admin: 09/14/22 09:51 Dose: 3 ml Documented By: AJIT Trazodone HCl (Trazodone Hcl 100 Mg Tablet) 100 mg PO BEDTIME [facility] Last Admin: 09/13/22 20:40 Dose: 100 mg Documented By: ELIZABETH Labs 09/10/22 06:12 09/14/22 05:48 Labs: Laboratory Results - last 24 hr 09/14/22 05:48 Anion Gap 17 Estim Creat Clear Calc 13.7 Estimated GFR 8 Random Glucose 96 Calcium 9.9 D Phosphorus 5.4 H Assessment and Plan (1) Frostbite: Status: Acute (2) OLIVIA (acute kidney injury): Status: Acute Plan 52yo homeless M with anxiety + depression, opioid dependence, PTSD presenting with severe BLE weakness after immobility x3d, admitted for OLIVIA due to rhabdomyolysis; was down for estimated 2-3d # OLIVIA due to rhabdomyolysis (pigment nephrotoxicity) - dialyzed through temp catheter, hold off on Permacath watching for renal recovery, Nephrology following. 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 # frostbite - being followed by General surgery no surgical intervention planned; continue to monitor for necrosis. - pain control with oxycodone prn - Betadine soaks daily -outpatient follow up with surgery # polysubstance abuse - Addiction Medicine consulted- declined medication for opioid use disorder # mood disorder - continue bupropion [renally dosed], clonazepam, mirtapazine, olanzapine, sertraline, and trazodone; no behavioral issues noted # VTE ppx: UFH # dispo: will need prolonged rehab attending - dr. leung In my clinical judgment, the patient requires continued inpatient hospitalization for the following reasons: OLIVIA Time Spent With Patient Time: Total time managing care of this patient today ____ minutes. Quality Stroke Does the patient have a stroke diagnosis?: No VTE Prior VTE?: No VTE Risk Level:: Medical - moderate - high VTE Device Contraindication: Treatment Not Indicated VTE Drug Contraindication: N/A - Med Ordered
[2022-09-14 19:38] VITALS: BP 125/66; PULSE 101; RESP 20; TEMP 36.9; O2SAT 96
[2022-09-14] MEDS: Mirtazapine 30 MG TABLET PO (20:18)
[2022-09-14] MEDS: OLANZapine 10 MG TABLET 20 MG PO (20:18)
[2022-09-14] MEDS: traZODone HCL 100 MG TABLET PO (20:18)
[2022-09-15] VITALS (8 sets, daily range): BP systolic 106–155; BP diastolic 57–85; PULSE 84–100; RESP 16–20; TEMP 36.4–37.1; O2SAT 95–99
[2022-09-15] MEDS: 0.9 % Sodium Chloride Flush 3 ML SYRINGE IVFLUSH ×2 (08:40→20:40)
[2022-09-15] MEDS: Heparin Sodium,Porcine 5,000 UNIT/ML VIAL 5000 UNIT SUBCUT ×2 (08:40→20:40)
[2022-09-15] MEDS: oxyCODONE HCl Immed Release 5 MG TABLET 10 MG PO (08:40)
[2022-09-15] MEDS: Docusate Sodium 100 MG CAPSULE 200 MG PO (08:41)
[2022-09-15] MEDS: clonazePAM 1 MG TABLET PO (08:41)
[2022-09-15] MEDS: Sertraline HCL 50 MG TABLET 150 MG PO (08:41)
[2022-09-15] MEDS: buPROPion HCL 100 MG TABLET 150 MG PO (08:46)
[2022-09-15 09:06] LABS: Hematocrit 31.7 % (42.0-52.0); Mean Corpuscular HGB Conc 31.5 g/dl (31.0-36.0); Mean Corpuscular Hemoglobin 27.8 pg (27.0-33.0); Mean Corpuscular Volume 88.1 fL (80.0-98.0); Mean Platelet Volume 8.6 fL (9.4-12.4); Platelet Count 634 X10*3/uL (160-400); Red Cell Distribution Width 14.6 % (11.0-16.0); White Blood Count 11.9 X10*3/uL (4.8-10.8)
[2022-09-15 09:22] LABS: Anion Gap 20 (12-20); Blood Urea Nitrogen 66 mg/dL (9-16); Calcium 10.5 mg/dL (8.4-10.2); Carbon Dioxide 23 mmol/L (22-29); Chloride 103 mmol/L (96-108); Glucose Random 150 mg/dL (60-115); Potassium 3.9 mmol/L (3.3-5.1); Sodium 142 mmol/L (135-145)
[2022-09-15 09:35] LABS: Creatinine Clr Calc Pharmacy 15.3; Estimated Glomerular Filt Rate 9
--- NOTE | 2022-09-15 12:44 | PM.PNNEP ---
Subjective Subjective Date of Service: 09/15/22 Interval history: seen and examined this morning follow up for frostbite, renal failure no overnight events no specific complaints this morning Physical Exam Vital Signs: Vital Signs: Last Vital Signs Temp 98.0 F 09/15/22 11:45 Pulse 84 09/15/22 11:45 Resp 19 09/15/22 11:45 BP 155/84 H 09/15/22 11:45 Pulse Ox 99 09/15/22 11:45 O2 Del Method Room Air 09/15/22 11:45 O2 Flow Rate 2 09/06/22 11:54 BMI result Body Mass Index 32.3 Const: General: cooperative, comfortable, alert and awake Nutritional Appearance: average body habitus Orientation/consciousness: patient oriented x3 Resp: Effort & Inspection: normal respiratory effort and able to speak in complete sentences Cardio: Rate: regular rate GI: Palpation (GI): Soft to palpation and nontender Skin: Other: right foot left foot Neuro: General: patient oriented x3 Objective Data Labs 09/15/22 08:51 09/15/22 08:51 Labs: Laboratory Results - last 24 hr 09/15/22 09/15/22 08:51 08:51 WBC 11.9 H RBC 3.60 L Hgb 10.0 L Hct 31.7 L MCV 88.1 MCH 27.8 MCHC 31.5 RDW 14.6 Plt Count 634 H D MPV 8.6 L Absolute Nucleated RBC 0.000 Nucleated RBC % (auto) 0.0 Sodium 142 Potassium 3.9 Chloride 103 Carbon Dioxide 23 Anion Gap 20 BUN 66 H Creatinine 6.55 H* Estim Creat Clear Calc 15.3 Estimated GFR 9 Random Glucose 150 H Calcium 10.5 H D Microbiology Microbiology Results: Microbiology 08/30/22 21:00 Blood - Venous Blood Culture - Final No growth after 5 days. 08/30/22 21:00 Blood - Venous Blood Culture - Final No growth after 5 days. Procedures Date of Service Date of Service: 09/15/22 Assessment & Plan Assessment and plan (1) OLIVIA (acute kidney injury): Status: Acute Assessment and Plan: - Non-Oliguric OLIVIA: c/w Rhabdo ATN s/p HD x 2 and now inr UOP and SCr stable--- so will cont to hold off on HD and reassess in am - Rhabdo: decr CPKs - Wounds as noted - Hyperphos REC: Again hold HD today and reassess again in AM IF SCr cont to decr then will c about removing temp line;; Pt diuretic phase of ATN - Will Give IVF - LR at 100 ml/ hr will follow w team Time Spent With Patient Time: Total time managing care of this patient today ____ minutes. Progress Note: Quality Stroke Does the patient have a stroke diagnosis?: No
[2022-09-15] MEDS: Lactated Ringers 1,000 ML 100 ML IVCONT ×2 (13:24→23:23)
--- NOTE | 2022-09-15 15:10 | MHC.CM.PN ---
per rounds pt ready for dc bed search continues
--- NOTE | 2022-09-15 17:19 | HO.PM.IMPN ---
Subjective Subjective Date of Service: 09/15/22 Interval History: seen and examined this morning follow up for OLIVIA, frostbite no overnight events no specific complaints Review of Systems Review of Systems: Yes all other systems are reviewed and are negative Constitutional Constitutional: Denies chills and Denies fever(s) Cardiovascular Cardiovascular: Denies chest pain, Denies palpitations and Denies dyspnea Respiratory Respiratory: Denies cough and Denies dyspnea Gastrointestinal Gastrointestinal: Denies abdominal pain Endocrine Endocrine: Denies palpitations Physical Exam Vital Signs: Vital Signs: Last Vital Signs Temp 97.9 F 09/15/22 15:05 Pulse 88 09/15/22 15:05 Resp 16 09/15/22 15:05 BP 137/82 09/15/22 15:05 Pulse Ox 99 09/15/22 15:05 O2 Del Method Room Air 09/15/22 15:05 O2 Flow Rate 2 09/06/22 11:54 BMI result Body Mass Index 32.3 Const: General: cooperative, comfortable, alert and awake Nutritional Appearance: average body habitus Orientation/consciousness: patient oriented x3 Resp: Effort & Inspection: normal respiratory effort and able to speak in complete sentences Cardio: Rate: regular rate GI: Palpation (GI): Soft to palpation and nontender Skin: Other: b/l feet wrapped in C/D/I dressing Neuro: General: patient oriented x3 Objective Data Active Medications Acetaminophen (Acetaminophen 325 Mg Tablet) 650 mg PO Q6H PRN PRN Reason: Pain, Mild (Pain Scale 1-3) Last Admin: 09/13/22 11:34 Dose: 650 mg Documented By: NELLY Bupropion HCl (Bupropion Hcl 100 Mg Tablet) 150 mg PO Q72H [facility] Last Admin: 09/15/22 08:46 Dose: 150 mg Documented By: AJIT Calcium Carbonate (Calcium Carbonate 500 Mg Tablet) 500 mg PO TID [facility] Last Admin: 09/15/22 16:06 Dose: 500 mg Documented By: AJIT Docusate Sodium (Docusate Sodium 100 Mg Capsule) 200 mg PO DAILY [facility] Last Admin: 09/15/22 08:41 Dose: 200 mg Documented By: AJIT Heparin Sodium (Porcine) (Heparin Sodium,Porcine 5,000 Unit/Ml Vial) 5,000 unit SUBCUT BID [facility] Last Admin: 09/15/22 08:40 Dose: 5,000 unit Documented By: AJIT Hydroxyzine HCl (Hydroxyzine Hcl 50 Mg Tablet) 50 mg PO BID PRN PRN Reason: Anxiety Lactated Ringer's (Lr) 1,000 mls @ 100 mls/hr IVCONT .Q10H [facility] Last Infusion: 09/15/22 13:32 Dose: 0 mls/hr Documented By: AJIT Mirtazapine (Mirtazapine 30 Mg Tablet) 30 mg PO BEDTIME [facility] Last Admin: 09/14/22 20:18 Dose: 30 mg Documented By: WILFREDO Olanzapine (Olanzapine 10 Mg Tablet) 20 mg PO BEDTIME [facility] Last Admin: 09/14/22 20:18 Dose: 20 mg Documented By: WILFREDO Ondansetron HCl (Ondansetron Hcl 4 Mg/2 Ml Vial) 4 mg IVPUSH Q8H PRN PRN Reason: Nausea and Vomiting Polyethylene Glycol (Polyethylene Glycol 3350 17 Gm Powd.Pack) 17 gm PO DAILY [facility] Last Admin: 09/15/22 08:45 Dose: Not Given Documented By: AJIT Non-Admin Reason: Patient Refused Sertraline HCl (Sertraline Hcl 50 Mg Tablet) 150 mg PO DAILY [facility] Last Admin: 09/15/22 08:41 Dose: 150 mg Documented By: AJIT Sodium Chloride (0.9 % Sodium Chloride Flush 3 Ml Syringe) 3 ml IVFLUSH QSHIFT [facility] Last Admin: 09/15/22 16:06 Dose: Not Given Documented By: AJIT Non-Admin Reason: No Access Trazodone HCl (Trazodone Hcl 100 Mg Tablet) 100 mg PO BEDTIME [facility] Last Admin: 09/14/22 20:18 Dose: 100 mg Documented By: WILFREDO Labs 09/15/22 08:51 09/15/22 08:51 Labs: Laboratory Results - last 24 hr 09/15/22 09/15/22 08:51 08:51 MCV 88.1 MCH 27.8 MCHC 31.5 RDW 14.6 Plt Count 634 H D MPV 8.6 L Absolute Nucleated RBC 0.000 Nucleated RBC % (auto) 0.0 Anion Gap 20 Estim Creat Clear Calc 15.3 Estimated GFR 9 Random Glucose 150 H Calcium 10.5 H D Assessment and Plan (1) Frostbite: Status: Acute (2) OLIVIA (acute kidney injury): Status: Acute Plan 52yo homeless M with anxiety + depression, opioid dependence, PTSD presenting with severe BLE weakness after immobility x3d, admitted for OLIVIA due to rhabdomyolysis; was down for estimated 2-3d # OLIVIA due to rhabdomyolysis (pigment nephrotoxicity) - dialyzed through temp catheter, hold off on Permacath watching for renal recovery, Nephrology following - plan for IVF - monitor BMP daily # hyperphosphatemia - improved, no indication for binders at this time # hyperK - resolved p 1 dose SZC # weakness - due to question of flexion myelopathy, MRI of thoracic spine was done and showed extensive T2 signal change involving the paraspinal musculature possibly sequela of rhabdomyolysis, but no definite thoracic cord signal changes noted - continue physical therapy daily and will require prolonged rehabilitation course # toxic-metabolic 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 # frostbite - being followed by General surgery no surgical intervention planned; continue to monitor for necrosis. - Betadine soaks daily - outpatient follow up with surgery # polysubstance abuse - Addiction Medicine consulted- declined medication for opioid use disorder # mood disorder - continue bupropion [renally dosed], clonazepam, mirtapazine, olanzapine, sertraline, and trazodone; no behavioral issues noted # VTE ppx: UFH # dispo: will need prolonged rehab attending - dr. Yañez In my clinical judgment, the patient requires continued inpatient hospitalization for the following reasons: OLIVIA Time Spent With Patient Time: Total time managing care of this patient today ____ minutes. Quality Stroke Does the patient have a stroke diagnosis?: No VTE Prior VTE?: No VTE Risk Level:: Medical - moderate - high VTE Device Contraindication: Treatment Not Indicated VTE Drug Contraindication: N/A - Med Ordered
[2022-09-15] MEDS: Acetaminophen 325 MG TABLET 650 MG PO (20:39)
[2022-09-15] MEDS: Mirtazapine 30 MG TABLET PO (20:39)
[2022-09-15] MEDS: traZODone HCL 100 MG TABLET PO (20:39)
[2022-09-15] MEDS: OLANZapine 10 MG TABLET 20 MG PO (20:40)
[2022-09-16 03:28] VITALS: BP 136/83; PULSE 90; RESP 20; TEMP 36.6; O2SAT 96
[2022-09-16 07:38] VITALS: BP 132/72; PULSE 98; RESP 20; TEMP 36.8; O2SAT 98
[2022-09-16 08:14] LABS: Anion Gap 16 (12-20); Blood Urea Nitrogen 55 mg/dL (9-16); Calcium 9.9 mg/dL (8.4-10.2); Carbon Dioxide 22 mmol/L (22-29); Chloride 106 mmol/L (96-108); Creatinine Clr Calc Pharmacy 18.2; Estimated Glomerular Filt Rate 11; Glucose Random 87 mg/dL (60-115); Potassium 4.2 mmol/L (3.3-5.1); Sodium 140 mmol/L (135-145)
[2022-09-16] MEDS: Sertraline HCL 50 MG TABLET 150 MG PO (09:22)
[2022-09-16] MEDS: Acetaminophen 325 MG TABLET 650 MG PO ×2 (09:22→16:55)
[2022-09-16] MEDS: Docusate Sodium 100 MG CAPSULE 200 MG PO (09:22)
[2022-09-16] MEDS: Heparin Sodium,Porcine 5,000 UNIT/ML VIAL 5000 UNIT SUBCUT ×2 (09:23→20:18)
[2022-09-16] MEDS: 0.9 % Sodium Chloride Flush 3 ML SYRINGE IVFLUSH (09:24)
[2022-09-16] MEDS: Lactated Ringers 1,000 ML 100 ML IVCONT ×2 (09:31→19:34)
--- NOTE | 2022-09-16 09:35 | P.PNIM_ITS ---
Subjective Subjective Date of Service: 09/16/22 Interval History: seen and examined this morning follow up for frostbite, OLIVIA no overnight events no specific complaints this morning Review of Systems Review of Systems: Yes all other systems are reviewed and are negative Constitutional Constitutional: Denies chills and Denies fever(s) ENT Ears, Nose, Mouth, and Throat: Denies dizziness Cardiovascular Cardiovascular: Denies chest pain, Denies palpitations and Denies dyspnea Respiratory Respiratory: Denies cough and Denies dyspnea Gastrointestinal Gastrointestinal: Denies abdominal pain, Denies nausea and Denies vomiting Neurologic Neurologic: Denies dizziness Endocrine Endocrine: Denies palpitations Physical Exam Vital Signs: Vital Signs: Last Vital Signs Temp 98.3 F 09/16/22 07:38 Pulse 98 09/16/22 07:38 Resp 20 09/16/22 07:38 BP 132/72 09/16/22 07:38 Pulse Ox 98 09/16/22 07:38 O2 Del Method Room Air 09/16/22 07:38 O2 Flow Rate 2 09/06/22 11:54 BMI result Body Mass Index 32.3 Const: General: cooperative and comfortable Nutritional Appearance: average body habitus Orientation/consciousness: patient oriented x3 Resp: Effort & Inspection: normal respiratory effort and able to speak in complete sentences Cardio: Rate: regular rate GI: Palpation (GI): Soft to palpation and nontender Skin: Other: b/l feet wrapped in C/D/I dressing Neuro: General: patient oriented x3 Objective Data Active Medications Acetaminophen (Acetaminophen 325 Mg Tablet) 650 mg PO Q6H PRN PRN Reason: Pain, Mild (Pain Scale 1-3) Last Admin: 09/16/22 09:22 Dose: 650 mg Documented By: JASON Bupropion HCl (Bupropion Hcl 100 Mg Tablet) 150 mg PO Q72H [facility] Last Admin: 09/15/22 08:46 Dose: 150 mg Documented By: CTORRConrado Calcium Carbonate (Calcium Carbonate 500 Mg Tablet) 500 mg PO TID [facility] Last Admin: 09/16/22 09:23 Dose: 500 mg Documented By: JASON Comments: couldn't scan barcode due to metallic? packaghing. Docusate Sodium (Docusate Sodium 100 Mg Capsule) 200 mg PO DAILY [facility] Last Admin: 09/16/22 09:22 Dose: 200 mg Documented By: JASON Heparin Sodium (Porcine) (Heparin Sodium,Porcine 5,000 Unit/Ml Vial) 5,000 unit SUBCUT BID [facility] Last Admin: 09/16/22 09:23 Dose: 5,000 unit Documented By: JASON Hydroxyzine HCl (Hydroxyzine Hcl 50 Mg Tablet) 50 mg PO BID PRN PRN Reason: Anxiety Lactated Ringer's (Lr) 1,000 mls @ 100 mls/hr IVCONT .Q10H [facility] Last Admin: 09/16/22 09:31 Dose: 100 mls/hr Documented By: JASON Mirtazapine (Mirtazapine 30 Mg Tablet) 30 mg PO BEDTIME [facility] Last Admin: 09/15/22 20:39 Dose: 30 mg Documented By: PATRICK Olanzapine (Olanzapine 10 Mg Tablet) 20 mg PO BEDTIME [facility] Last Admin: 09/15/22 20:40 Dose: 20 mg Documented By: PATRICK Ondansetron HCl (Ondansetron Hcl 4 Mg/2 Ml Vial) 4 mg IVPUSH Q8H PRN PRN Reason: Nausea and Vomiting Polyethylene Glycol (Polyethylene Glycol 3350 17 Gm Powd.Pack) 17 gm PO DAILY [facility] Last Admin: 09/16/22 09:31 Dose: Not Given Documented By: JASON Non-Admin Reason: Patient Refused Sertraline HCl (Sertraline Hcl 50 Mg Tablet) 150 mg PO DAILY [facility] Last Admin: 09/16/22 09:22 Dose: 150 mg Documented By: JASON Sodium Chloride (0.9 % Sodium Chloride Flush 3 Ml Syringe) 3 ml IVFLUSH QSHIFT [facility] Last Admin: 09/16/22 09:24 Dose: 3 ml Documented By: JASON Trazodone HCl (Trazodone Hcl 100 Mg Tablet) 100 mg PO BEDTIME [facility] Last Admin: 09/15/22 20:39 Dose: 100 mg Documented By: PATRICK Labs 09/15/22 08:51 09/16/22 06:34 Labs: Laboratory Results - last 24 hr 09/15/22 09/16/22 08:51 06:34 Anion Gap 16 Estim Creat Clear Calc 15.3 18.2 Estimated GFR 9 11 Random Glucose 87 Calcium 9.9 Assessment and Plan (1) Frostbite: Status: Acute (2) OLIVIA (acute kidney injury): Status: Acute Plan 52yo homeless M with anxiety + depression, opioid dependence, PTSD presenting with severe BLE weakness after immobility x3d, admitted for OLIVIA due to rhabdomyolysis; was down for estimated 2-3d OLIVIA due to rhabdomyolysis (pigment nephrotoxicity) dialyzed through temp catheter, hold off on Permacath. renal function improving, SCr down to 5.49. likely remove temp catheter on Sunday Continue IVF monitor BMP daily nephrology following frostbite being followed by General surgery no surgical intervention planned; continue to monitor for necrosis. 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 resolved polysubstance abuse Addiction Medicine consulted- declined medication for opioid use disorder mood disorder continue bupropion [renally dosed], clonazepam, mirtapazine, olanzapine, sertraline, and trazodone; no behavioral issues noted VTE ppx: UFH dispo: will need prolonged rehab attending - dr. Yañez In my clinical judgment, the patient requires continued inpatient hospitalization for the following reasons: OLIVIA Time Spent With Patient Time: Total time managing care of this patient today ____ minutes. Quality Stroke Does the patient have a stroke diagnosis?: No VTE Prior VTE?: No VTE Risk Level:: Medical - moderate - high VTE Device Contraindication: Treatment Not Indicated VTE Drug Contraindication: N/A - Med Ordered
[2022-09-16] MEDS: clonazePAM 1 MG TABLET PO (09:49)
[2022-09-16 15:15] VITALS: BP 135/87; PULSE 97; RESP 18; TEMP 37.1; O2SAT 97
--- NOTE | 2022-09-16 16:18 | PC.NURSE ---
warm soaks with betadine to patients feet done. Patient tolerated well.
[2022-09-16 20:00] VITALS: BP 148/74; PULSE 107; RESP 18; TEMP 37; O2SAT 98
[2022-09-16] MEDS: traZODone HCL 100 MG TABLET PO (20:15)
[2022-09-16] MEDS: OLANZapine 10 MG TABLET 20 MG PO (20:16)
[2022-09-16] MEDS: Mirtazapine 30 MG TABLET PO (20:19)
--- NOTE | 2022-09-16 21:50 | PM.PNNEP ---
Subjective Subjective Date of Service: 09/17/22 Interval history: seen and examined this morning follow up for OLIVIA no overnight events no specific complaints this morning Sitting up in the chair Cr slow to mprove Physical Exam Vital Signs: Vital Signs: Last Vital Signs Temp 98.6 F 09/16/22 20:00 Pulse 107 H 09/16/22 20:00 Resp 18 09/16/22 20:00 BP 148/74 H 09/16/22 20:00 Pulse Ox 98 09/16/22 20:00 O2 Del Method Room Air 09/16/22 20:00 O2 Flow Rate 2 09/06/22 11:54 BMI result Body Mass Index 32.3 Const: General: cooperative and comfortable Nutritional Appearance: average body habitus Orientation/consciousness: patient oriented x3 HEENT: Head: Yes normocephalic and Yes atraumatic Eyes: EOM: EOMs intact bilaterally Neck: Neck: Yes supple Resp: Effort & Inspection: normal respiratory effort and able to speak in complete sentences Auscultation: clear to auscultation bilaterally and diminished lung sounds Cardio: Rate: regular rate Heart sounds: S1 normal heart sound present and S2 normal heart sound present GI: Palpation (GI): Soft to palpation and nontender Skin: Other: b/l feet wrapped in C/D/I dressing Neuro: General: patient oriented x3 Extrem: General: Yes edema Objective Data Labs 09/15/22 08:51 09/16/22 06:34 Labs: Laboratory Results - last 24 hr 09/16/22 06:34 Sodium 140 Potassium 4.2 Chloride 106 Carbon Dioxide 22 Anion Gap 16 BUN 55 H Creatinine 5.49 H* Estim Creat Clear Calc 18.2 Estimated GFR 11 Random Glucose 87 Calcium 9.9 Microbiology Microbiology Results: Microbiology 08/30/22 21:00 Blood - Venous Blood Culture - Final No growth after 5 days. 08/30/22 21:00 Blood - Venous Blood Culture - Final No growth after 5 days. Procedures Date of Service Date of Service: 09/17/22 Assessment & Plan Assessment and plan (1) OLIVIA (acute kidney injury): Status: Acute Assessment and Plan: - Non-Oliguric OLIVIA: c/w Rhabdo ATN s/p HD x 2 and now inr UOP and SCr stable--- so will cont to hold off on HD and reassess in am - Rhabdo: decr CPKs - Wounds as noted - Hyperphos REC: Again hold HD today and reassess again in AM IF SCr cont to decr then will c about removing temp line; Now Cr is around 5. 5 Pt is non oliguric Pt diuretic phase of ATN - Continue e IVF - LR at 100 ml/ hr D/w Medical team - There is a risk of infection with the R IJ -informed them that our team will reevaluate re removel in AM will follow w team Time Spent With Patient Time: Total time managing care of this patient today ____ minutes. Progress Note: Quality Stroke Does the patient have a stroke diagnosis?: No
[2022-09-16 23:38] VITALS: BP 137/80; PULSE 90; RESP 18; TEMP 36.8; O2SAT 95
[2022-09-17 03:28] VITALS: BP 132/80; PULSE 97; RESP 18; TEMP 36.8; O2SAT 94
[2022-09-17] MEDS: Lactated Ringers 1,000 ML 100 ML IVCONT (05:50)
[2022-09-17 05:53] VITALS: BMI 31.4
[2022-09-17 06:40] LABS: Anion Gap 13 (12-20); Blood Urea Nitrogen 48 mg/dL (9-16); Calcium 10.1 mg/dL (8.4-10.2); Carbon Dioxide 29 mmol/L (22-29); Chloride 105 mmol/L (96-108); Estimated Glomerular Filt Rate 12; Glucose Random 92 mg/dL (60-115); Potassium 4.1 mmol/L (3.3-5.1); Sodium 143 mmol/L (135-145)
[2022-09-17 07:33] VITALS: BP 129/82; PULSE 90; RESP 20; TEMP 36.3; O2SAT 94
[2022-09-17] MEDS: Docusate Sodium 100 MG CAPSULE 200 MG PO (07:55)
[2022-09-17] MEDS: Heparin Sodium,Porcine 5,000 UNIT/ML VIAL 5000 UNIT SUBCUT ×2 (07:55→21:59)
[2022-09-17] MEDS: 0.9 % Sodium Chloride Flush 3 ML SYRINGE IVFLUSH ×3 (07:56→22:00)
[2022-09-17] MEDS: Acetaminophen 325 MG TABLET 650 MG PO ×2 (07:56→21:59)
[2022-09-17] MEDS: Sertraline HCL 50 MG TABLET 150 MG PO (07:56)
[2022-09-17 11:58] VITALS: BP 127/85; PULSE 94; RESP 20; TEMP 36.2; O2SAT 99
--- NOTE | 2022-09-17 13:09 | MHC.CM.PN ---
EMR REVIEWED, PER HOSPITALIST PT'S TEMPORARY CATH TO BE REMOVED TODAY 09/17, ANTIC PT WILL BE CLEARED FOR D/C TOMORROW 09/18/22 TO STR, NO BED OFFERS AT THIS TIME AND CM WILL EXPAND REFERRAL AND CONT TO FOLLOW D/C NEEDS.
--- NOTE | 2022-09-17 13:29 | P.PNIM_ITS ---
Subjective Subjective Date of Service: 09/17/22 Interval History: seen and examined this morning follow up for frostbite, OLIVIA no overnight events foot pain improving. no specific complaints Review of Systems Review of Systems: Yes all other systems are reviewed and are negative Constitutional Constitutional: Denies chills and Denies fever(s) Cardiovascular Cardiovascular: Denies chest pain, Denies palpitations and Denies dyspnea Respiratory Respiratory: Denies cough and Denies dyspnea Gastrointestinal Gastrointestinal: Denies abdominal pain Endocrine Endocrine: Denies palpitations Physical Exam Vital Signs: Vital Signs: Last Vital Signs Temp 97.2 F 09/17/22 11:58 Pulse 94 09/17/22 11:58 Resp 20 09/17/22 11:58 BP 127/85 09/17/22 11:58 Pulse Ox 99 09/17/22 11:58 O2 Del Method Room Air 09/17/22 11:58 O2 Flow Rate 2 09/06/22 11:54 BMI result Body Mass Index 31.4 Const: General: cooperative, comfortable, alert and awake Nutritional Appearance: average body habitus Orientation/consciousness: patient oriented x3 Resp: Effort & Inspection: normal respiratory effort, able to speak in complete sentences, no respiratory distress and no use of accessory muscles Cardio: Rate: regular rate GI: Inspection: No distended Palpation (GI): Soft to palpation and nontender Skin: Other: Neuro: General: patient oriented x3 and CN's II-XI intact bilaterally Extrem: General: Yes no pedal edema Objective Data Active Medications Acetaminophen (Acetaminophen 325 Mg Tablet) 650 mg PO Q6H PRN PRN Reason: Pain, Mild (Pain Scale 1-3) Last Admin: 09/17/22 07:56 Dose: 650 mg Documented By: AHMET Bupropion HCl (Bupropion Hcl 100 Mg Tablet) 150 mg PO Q72H [facility] Last Admin: 09/15/22 08:46 Dose: 150 mg Documented By: MARTÍNORRConrado Calcium Carbonate (Calcium Carbonate 500 Mg Tablet) 500 mg PO TID [facility] Last Admin: 09/17/22 07:56 Dose: 500 mg Documented By: AHMET Clonazepam (Clonazepam 1 Mg Tablet) 1 mg PO BID PRN PRN Reason: anxiety Last Admin: 09/16/22 09:49 Dose: 1 mg Documented By: JASON Docusate Sodium (Docusate Sodium 100 Mg Capsule) 200 mg PO DAILY [facility] Last Admin: 09/17/22 07:55 Dose: 200 mg Documented By: AHMET Heparin Sodium (Porcine) (Heparin Sodium,Porcine 5,000 Unit/Ml Vial) 5,000 unit SUBCUT BID [facility] Last Admin: 09/17/22 07:55 Dose: 5,000 unit Documented By: AHMET Hydroxyzine HCl (Hydroxyzine Hcl 50 Mg Tablet) 50 mg PO BID PRN PRN Reason: Anxiety Mirtazapine (Mirtazapine 30 Mg Tablet) 30 mg PO BEDTIME [facility] Last Admin: 09/16/22 20:19 Dose: 30 mg Documented By: PATRICIA Olanzapine (Olanzapine 10 Mg Tablet) 20 mg PO BEDTIME [facility] Last Admin: 09/16/22 20:16 Dose: 20 mg Documented By: PATRICIA Ondansetron HCl (Ondansetron Hcl 4 Mg/2 Ml Vial) 4 mg IVPUSH Q8H PRN PRN Reason: Nausea and Vomiting Polyethylene Glycol (Polyethylene Glycol 3350 17 Gm Powd.Pack) 17 gm PO DAILY [facility] Last Admin: 09/17/22 08:02 Dose: Not Given Documented By: AHMET Non-Admin Reason: Patient Refused Sertraline HCl (Sertraline Hcl 50 Mg Tablet) 150 mg PO DAILY [facility] Last Admin: 09/17/22 07:56 Dose: 150 mg Documented By: AHMET Sodium Chloride (0.9 % Sodium Chloride Flush 3 Ml Syringe) 3 ml IVFLUSH QSHIFT [facility] Last Admin: 09/17/22 07:56 Dose: 3 ml Documented By: AHMET Trazodone HCl (Trazodone Hcl 100 Mg Tablet) 100 mg PO BEDTIME [facility] Last Admin: 09/16/22 20:15 Dose: 100 mg Documented By: PATRICIA Labs 09/15/22 08:51 09/17/22 05:43 Labs: Laboratory Results - last 24 hr 09/17/22 05:43 Anion Gap 13 Estim Creat Clear Calc 19.0 Estimated GFR 12 Random Glucose 92 Calcium 10.1 Assessment and Plan (1) Frostbite: Status: Acute (2) OLIVIA (acute kidney injury): Status: Acute Plan 52yo homeless M with anxiety + depression, opioid dependence, PTSD presenting with severe BLE weakness after immobility x3d, admitted for OLIVIA due to rhabdomyolysis; was down for estimated 2-3d OLIVIA due to rhabdomyolysis (pigment nephrotoxicity) dialyzed through temp catheter, hold off on Permacath. renal function improving, SCr down to 5.19, likely remove temp catheter on Sunday monitor BMP daily nephrology following frostbite being followed by General surgery no surgical intervention planned; continue to monitor for necrosis. 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 resolved polysubstance abuse Addiction Medicine consulted- declined medication for opioid use disorder mood disorder continue bupropion [renally dosed], clonazepam, mirtapazine, olanzapine, sertraline, and trazodone; no behavioral issues noted VTE ppx: UFH dispo: will need prolonged rehab attending - dr. Rascon In my clinical judgment, the patient requires continued inpatient hospitalization for the following reasons: OLIVIA Time Spent With Patient Time: Total time managing care of this patient today ____ minutes. Quality Stroke Does the patient have a stroke diagnosis?: No VTE Prior VTE?: No VTE Risk Level:: Medical - moderate - high VTE Device Contraindication: Treatment Not Indicated VTE Drug Contraindication: N/A - Med Ordered
[2022-09-17 15:51] VITALS: BP 143/87; PULSE 80; RESP 20; TEMP 36.7; O2SAT 94
[2022-09-17 20:00] VITALS: BP 115/60; PULSE 84; RESP 20; TEMP 36.4; O2SAT 98
[2022-09-17] MEDS: traZODone HCL 100 MG TABLET PO (21:58)
[2022-09-17] MEDS: Mirtazapine 30 MG TABLET PO (21:58)
[2022-09-17] MEDS: OLANZapine 10 MG TABLET 20 MG PO (21:58)
[2022-09-17 23:41] VITALS: BP 147/80; PULSE 89; RESP 14; TEMP 38; O2SAT 95
[2022-09-18] VITALS (8 sets, daily range): BP systolic 103–161; BP diastolic 71–87; PULSE 91–114; RESP 12–18; TEMP 36.7–37.4; O2SAT 93–98; BMI 31.2
[2022-09-18 07:13] LABS: Anion Gap 14 (12-20); Blood Urea Nitrogen 38 mg/dL (9-16); Calcium 9.9 mg/dL (8.4-10.2); Carbon Dioxide 27 mmol/L (22-29); Chloride 104 mmol/L (96-108); Glucose Random 99 mg/dL (60-115); Potassium 3.8 mmol/L (3.3-5.1); Sodium 141 mmol/L (135-145)
[2022-09-18 07:50] LABS: Creatinine Clr Calc Pharmacy 22.5; Estimated Glomerular Filt Rate 14
--- NOTE | 2022-09-18 09:36 | P.PNIM_ITS ---
Subjective Subjective Date of Service: 09/18/22 Interval History: seen and examined this morning follow up for frostbite, OLIVIA no overnight events foot pain improving. no specific complaints Review of Systems Review of Systems: Yes all other systems are reviewed and are negative Constitutional Constitutional: Denies chills and Denies fever(s) Cardiovascular Cardiovascular: Denies chest pain, Denies palpitations and Denies dyspnea Respiratory Respiratory: Denies cough and Denies dyspnea Gastrointestinal Gastrointestinal: Denies abdominal pain Endocrine Endocrine: Denies palpitations Physical Exam Vital Signs: Vital Signs: Last Vital Signs Temp 98.4 F 09/18/22 08:00 Pulse 100 09/18/22 08:00 Resp 18 09/18/22 08:00 BP 126/73 09/18/22 08:00 Pulse Ox 93 09/18/22 08:00 O2 Del Method Room Air 09/18/22 08:00 O2 Flow Rate 2 09/06/22 11:54 BMI result Body Mass Index 31.2 Appearing in no acute distress lung sounds are clear to auscultation heart regular rate rhythm, clear S1, S2 positive bowel sounds, abdomen is soft, nontender neuro patient is alert x3, no focal deficits Objective Data Active Medications Acetaminophen (Acetaminophen 325 Mg Tablet) 650 mg PO Q6H PRN PRN Reason: Pain, Mild (Pain Scale 1-3) Last Admin: 09/17/22 21:59 Dose: 650 mg Documented By: RANDY Bupropion HCl (Bupropion Hcl 100 Mg Tablet) 150 mg PO Q72H [facility] Last Admin: 09/15/22 08:46 Dose: 150 mg Documented By: AJIT Calcium Carbonate (Calcium Carbonate 500 Mg Tablet) 500 mg PO TID [facility] Last Admin: 09/17/22 21:59 Dose: 500 mg Documented By: RANDY Clonazepam (Clonazepam 1 Mg Tablet) 1 mg PO BID PRN PRN Reason: anxiety Last Admin: 09/16/22 09:49 Dose: 1 mg Documented By: JASON Docusate Sodium (Docusate Sodium 100 Mg Capsule) 200 mg PO DAILY [facility] Last Admin: 09/17/22 07:55 Dose: 200 mg Documented By: AHMET Heparin Sodium (Porcine) (Heparin Sodium,Porcine 5,000 Unit/Ml Vial) 5,000 unit SUBCUT BID [facility] Last Admin: 09/17/22 21:59 Dose: 5,000 unit Documented By: RANDY Hydroxyzine HCl (Hydroxyzine Hcl 50 Mg Tablet) 50 mg PO BID PRN PRN Reason: Anxiety Mirtazapine (Mirtazapine 30 Mg Tablet) 30 mg PO BEDTIME [facility] Last Admin: 09/17/22 21:58 Dose: 30 mg Documented By: RANDY Olanzapine (Olanzapine 10 Mg Tablet) 20 mg PO BEDTIME [facility] Last Admin: 09/17/22 21:58 Dose: 20 mg Documented By: RANDY Ondansetron HCl (Ondansetron Hcl 4 Mg/2 Ml Vial) 4 mg IVPUSH Q8H PRN PRN Reason: Nausea and Vomiting Polyethylene Glycol (Polyethylene Glycol 3350 17 Gm Powd.Pack) 17 gm PO DAILY [facility] Last Admin: 09/17/22 08:02 Dose: Not Given Documented By: AHMET Non-Admin Reason: Patient Refused Sertraline HCl (Sertraline Hcl 50 Mg Tablet) 150 mg PO DAILY [facility] Last Admin: 09/17/22 07:56 Dose: 150 mg Documented By: AHMET Sodium Chloride (0.9 % Sodium Chloride Flush 3 Ml Syringe) 3 ml IVFLUSH QSHIFT [facility] Last Admin: 09/17/22 22:00 Dose: 3 ml Documented By: RANDY Trazodone HCl (Trazodone Hcl 100 Mg Tablet) 100 mg PO BEDTIME [facility] Last Admin: 09/17/22 21:58 Dose: 100 mg Documented By: RANDY Labs 09/15/22 08:51 09/18/22 06:00 Labs: Laboratory Results - last 24 hr 09/18/22 06:00 Anion Gap 14 Estim Creat Clear Calc 22.5 Estimated GFR 14 Random Glucose 99 Calcium 9.9 Assessment and Plan (1) Frostbite: Status: Acute (2) OLIVIA (acute kidney injury): Status: Acute Plan 52yo homeless M with anxiety + depression, opioid dependence, PTSD presenting with severe BLE weakness after immobility x3d, admitted for OLIVIA due to rh abdomyolysis; was down for estimated 2-3d OLIVIA due to rhabdomyolysis (pigment nephrotoxicity), acute dialyzed through temp catheter, renal function improving monitor [facility] daily nephrology following Frostbite with gangrenous tissue to both feet being followed by General surgery no surgical intervention planned; continue to monitor for necrosis. 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 resolved polysubstance abuse Addiction Medicine consulted- declined medication for opioid use disorder mood disorder continue bupropion [renally dosed], clonazepam, mirtapazine, olanzapine, sertraline, and trazodone; no behavioral issues noted VTE ppx: UFH dispo: will need prolonged rehab attending - dr. Friedman In my clinical judgment, the patient requires continued inpatient hospitalization for the following reasons: OLIVIA, gangrenous foot Time Spent With Patient Time: Total time managing care of this patient today ____ minutes. Quality Stroke Does the patient have a stroke diagnosis?: No VTE Prior VTE?: No VTE Risk Level:: Medical - moderate - high VTE Device Contraindication: Treatment Not Indicated VTE Drug Contraindication: N/A - Med Ordered
[2022-09-18] MEDS: 0.9 % Sodium Chloride Flush 3 ML SYRINGE IVFLUSH ×2 (09:52→20:43)
[2022-09-18] MEDS: Sertraline HCL 50 MG TABLET 150 MG PO (09:52)
[2022-09-18] MEDS: Docusate Sodium 100 MG CAPSULE 200 MG PO (09:53)
[2022-09-18] MEDS: Heparin Sodium,Porcine 5,000 UNIT/ML VIAL 5000 UNIT SUBCUT ×2 (09:54→20:40)
[2022-09-18] MEDS: buPROPion HCL 100 MG TABLET 150 MG PO (09:55)
[2022-09-18] MEDS: clonazePAM 1 MG TABLET PO (10:01)
[2022-09-18] MEDS: Acetaminophen 325 MG TABLET 650 MG PO ×2 (10:06→16:08)
--- NOTE | 2022-09-18 10:14 | MHC.CM.PN ---
Per ROUNDS discussion, HD temporary cath to be removed and [facility] THERAPIST wants surgical consult (?Surgery/?toe/foot amp); PT is recommending STR and CM will continue to follow.
--- NOTE | 2022-09-18 10:49 | PM.PNNEP ---
Subjective Subjective Date of Service: 09/18/22 Interval history: seen and examined this morning; Urine output good; Renal function improving Physical Exam Vital Signs: Vital Signs: Last Vital Signs Temp 98.4 F 09/18/22 08:00 Pulse 100 09/18/22 08:55 Resp 18 09/18/22 08:00 BP 126/73 09/18/22 08:55 Pulse Ox 93 09/18/22 08:55 O2 Del Method Room Air 09/18/22 08:00 O2 Flow Rate 2 09/06/22 11:54 BMI result Body Mass Index 31.2 Const: General: no acute distress Orientation/consciousness: patient oriented x3 Eyes: EOM: EOMs intact bilaterally Neck: Neck: Yes supple Resp: Auscultation: diminished lung sounds Cardio: Rate: regular rate GI: Palpation (GI): Soft to palpation Neuro: General: patient oriented x3 and moves all extremities Objective Data Labs 09/15/22 08:51 09/18/22 06:00 Labs: Laboratory Results - last 24 hr 09/18/22 06:00 Sodium 141 Potassium 3.8 Chloride 104 Carbon Dioxide 27 Anion Gap 14 BUN 38 H Creatinine 4.38 H* Estim Creat Clear Calc 22.5 Estimated GFR 14 Random Glucose 99 Calcium 9.9 Microbiology Microbiology Results: Microbiology 08/30/22 21:00 Blood - Venous Blood Culture - Final No growth after 5 days. 08/30/22 21:00 Blood - Venous Blood Culture - Final No growth after 5 days. Procedures Date of Service Date of Service: 09/18/22 Assessment & Plan Assessment and plan (1) OLIVIA (acute kidney injury): Status: Acute Assessment and Plan: Non-Oliguric OLIVIA: c/w Rhabdo ATN s/p HD x 2 Renal function improving; Electrolytes OK No need for further HD; D/C HD catheter Surgery to follow re foot; C/W rest of current management Progress Note: Quality Stroke Does the patient have a stroke diagnosis?: No
[2022-09-18] MEDS: OLANZapine 10 MG TABLET 20 MG PO (20:40)
[2022-09-18] MEDS: traZODone HCL 100 MG TABLET PO (20:40)
[2022-09-18] MEDS: Mirtazapine 30 MG TABLET PO (20:40)
[2022-09-19] MEDS: Acetaminophen 325 MG TABLET 650 MG PO ×3 (00:05→19:51)
[2022-09-19] MEDS: clonazePAM 1 MG TABLET PO ×3 (00:06→19:51)
[2022-09-19 03:20] VITALS: BP 135/85; PULSE 99; RESP 12; TEMP 36.6; O2SAT 95
[2022-09-19 06:00] VITALS: BMI 31.8
[2022-09-19 06:17] LABS: Anion Gap 14 (12-20); Blood Urea Nitrogen 36 mg/dL (9-16); Calcium 9.8 mg/dL (8.4-10.2); Carbon Dioxide 27 mmol/L (22-29); Chloride 105 mmol/L (96-108); Creatinine Clr Calc Pharmacy 25.5; Estimated Glomerular Filt Rate 16; Glucose Random 99 mg/dL (60-115); Potassium 3.6 mmol/L (3.3-5.1); Sodium 142 mmol/L (135-145)
[2022-09-19 07:05] VITALS: BP 105/55; PULSE 96; RESP 17; TEMP 37.7; O2SAT 95
[2022-09-19] MEDS: 0.9 % Sodium Chloride Flush 3 ML SYRINGE IVFLUSH ×3 (08:35→19:51)
[2022-09-19] MEDS: Sertraline HCL 50 MG TABLET 150 MG PO (08:35)
[2022-09-19] MEDS: Docusate Sodium 100 MG CAPSULE 200 MG PO (08:38)
[2022-09-19] MEDS: Heparin Sodium,Porcine 5,000 UNIT/ML VIAL 5000 UNIT SUBCUT (08:38)
--- NOTE | 2022-09-19 09:46 | HO.PM.IMPN ---
Subjective Subjective Date of Service: 09/19/22 Interval History: seen and examined this morning follow up for frostbite, OLIVIA no overnight events foot pain improving. no specific complaints Review of Systems Review of Systems: Yes all other systems are reviewed and are negative Constitutional Constitutional: Denies chills and Denies fever(s) Cardiovascular Cardiovascular: Denies chest pain, Denies palpitations and Denies dyspnea Respiratory Respiratory: Denies cough and Denies dyspnea Gastrointestinal Gastrointestinal: Denies abdominal pain Endocrine Endocrine: Denies palpitations Physical Exam Vital Signs: Vital Signs: Last Vital Signs Temp 99.8 F 09/19/22 07:05 Pulse 96 09/19/22 07:05 Resp 17 09/19/22 07:05 BP 105/55 L 09/19/22 07:05 Pulse Ox 95 09/19/22 07:05 O2 Del Method Room Air 09/19/22 07:05 O2 Flow Rate 2 09/06/22 11:54 BMI result Body Mass Index 31.8 Appearing in no acute distress lung sounds are clear to auscultation heart regular rate rhythm, clear S1, S2 positive bowel sounds, abdomen is soft, nontender neuro patient is alert x3, no focal deficits Objective Data Active Medications Acetaminophen (Acetaminophen 325 Mg Tablet) 650 mg PO Q6H PRN PRN Reason: Pain, Mild (Pain Scale 1-3) Last Admin: 09/19/22 08:38 Dose: 650 mg Documented By: DONELL Bupropion HCl (Bupropion Hcl 100 Mg Tablet) 150 mg PO Q72H [facility] Last Admin: 09/18/22 09:55 Dose: 150 mg Documented By: DONELL Calcium Carbonate (Calcium Carbonate 500 Mg Tablet) 500 mg PO TID [facility] Last Admin: 09/19/22 08:39 Dose: 500 mg Documented By: DONELL Clonazepam (Clonazepam 1 Mg Tablet) 1 mg PO BID PRN PRN Reason: anxiety Last Admin: 09/19/22 00:06 Dose: 1 mg Documented By: LUBA Docusate Sodium (Docusate Sodium 100 Mg Capsule) 200 mg PO DAILY [facility] Last Admin: 09/19/22 08:38 Dose: 200 mg Documented By: DONELL Heparin Sodium (Porcine) (Heparin Sodium,Porcine 5,000 Unit/Ml Vial) 5,000 unit SUBCUT BID [facility] Last Admin: 09/19/22 08:38 Dose: 5,000 unit Documented By: DONELL Hydroxyzine HCl (Hydroxyzine Hcl 50 Mg Tablet) 50 mg PO BID PRN PRN Reason: Anxiety Mirtazapine (Mirtazapine 30 Mg Tablet) 30 mg PO BEDTIME [facility] Last Admin: 09/18/22 20:40 Dose: 30 mg Documented By: LUBA Olanzapine (Olanzapine 10 Mg Tablet) 20 mg PO BEDTIME [facility] Last Admin: 09/18/22 20:40 Dose: 20 mg Documented By: LUBA Ondansetron HCl (Ondansetron Hcl 4 Mg/2 Ml Vial) 4 mg IVPUSH Q8H PRN PRN Reason: Nausea and Vomiting Polyethylene Glycol (Polyethylene Glycol 3350 17 Gm Powd.Pack) 17 gm PO DAILY [facility] Last Admin: 09/19/22 08:45 Dose: Not Given Documented By: DONELL Non-Admin Reason: Patient Refused Sertraline HCl (Sertraline Hcl 50 Mg Tablet) 150 mg PO DAILY [facility] Last Admin: 09/19/22 08:35 Dose: 150 mg Documented By: DONELL Sodium Chloride (0.9 % Sodium Chloride Flush 3 Ml Syringe) 3 ml IVFLUSH QSHIFT [facility] Last Admin: 09/19/22 08:35 Dose: 3 ml Documented By: DONELL Trazodone HCl (Trazodone Hcl 100 Mg Tablet) 100 mg PO BEDTIME [facility] Last Admin: 09/18/22 20:40 Dose: 100 mg Documented By: LUBA Labs 09/15/22 08:51 09/19/22 05:35 Labs: Laboratory Results - last 24 hr 09/19/22 05:35 Anion Gap 14 Estim Creat Clear Calc 25.5 Estimated GFR 16 Random Glucose 99 Calcium 9.8 Assessment and Plan (1) Frostbite: Status: Acute (2) OLIVIA (acute kidney injury): Status: Acute Plan 52yo homeless M with anxiety + depression, opioid dependence, PTSD presenting with severe BLE weakness after immobility x3d, admitted for OLIVIA due to rhabdomyolysis; was down for estimated 2-3d OLIVIA due to rhabdomyolysis (pigment nephrotoxicity), acute . Resolving dialyzed through temp catheter temp cath removed, urinating monitor [facility] daily nephrology following Frostbite with gangrenous tissue to both feet Betadine soaks daily Plan for amputation of toes Left foot and great toe right foot 09/20/22 npo after midnight weakness due to question of flexion myelopathy, MRI of thoracic spine was done and showed extensive T2 signal change involving the paraspinal musculature possibly sequela of rhabdomyolysis, but no definite thoracic cord signal changes noted continue physical therapy daily and will require prolonged rehabilitation course hyperphosphatemia improved, no indication for binders at this time hyperK resolved toxic-metabolic encephalopathy 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 resolved polysubstance abuse Addiction Medicine consulted- declined medication for opioid use disorder mood disorder continue bupropion [renally dosed], clonazepam, mirtapazine, olanzapine, sertraline, and trazodone; no behavioral issues noted VTE ppx: UFH dispo: will need prolonged rehab attending - dr. Friedman In my clinical judgment, the patient requires continued inpatient hospitalization for the following reasons: OLIVIA, gangrenous foot Time Spent With Patient Time: Total time managing care of this patient today ____ minutes. Quality Stroke Does the patient have a stroke diagnosis?: No VTE Prior VTE?: No VTE Risk Level:: Medical - moderate - high VTE Device Contraindication: Treatment Not Indicated VTE Drug Contraindication: N/A - Med Ordered
[2022-09-19 11:15] VITALS: BP 133/79; PULSE 85; RESP 18; TEMP 36.6; O2SAT 96
--- NOTE | 2022-09-19 12:00 | PM.PNNEP ---
Subjective Subjective Date of Service: 09/19/22 Interval history: Events noted. For Surgery; Renal function improving Physical Exam Vital Signs: Vital Signs: Last Vital Signs Temp 97.9 F 09/19/22 11:15 Pulse 85 09/19/22 11:15 Resp 18 09/19/22 11:15 BP 133/79 09/19/22 11:15 Pulse Ox 96 09/19/22 11:15 O2 Del Method Room Air 09/19/22 11:15 O2 Flow Rate 2 09/06/22 11:54 BMI result Body Mass Index 31.8 Const: General: no acute distress Orientation/consciousness: patient oriented x3 Eyes: EOM: EOMs intact bilaterally Neck: Neck: Yes supple Resp: Auscultation: diminished lung sounds Cardio: Rate: regular rate GI: Palpation (GI): Soft to palpation Neuro: General: patient oriented x3 Objective Data Labs 09/15/22 08:51 09/19/22 05:35 Labs: Laboratory Results - last 24 hr 09/19/22 05:35 Sodium 142 Potassium 3.6 Chloride 105 Carbon Dioxide 27 Anion Gap 14 BUN 36 H Creatinine 3.87 H Estim Creat Clear Calc 25.5 Estimated GFR 16 Random Glucose 99 Calcium 9.8 Microbiology Microbiology Results: Microbiology 08/30/22 21:00 Blood - Venous Blood Culture - Final No growth after 5 days. 08/30/22 21:00 Blood - Venous Blood Culture - Final No growth after 5 days. Procedures Date of Service Date of Service: 09/19/22 Assessment & Plan Assessment and plan (1) OLIVIA (acute kidney injury): Status: Acute Assessment and Plan: Non-Oliguric OLIVIA: c/w Rhabdo ATN s/p HD x 2 Renal function improving; Electrolytes OK No need for further HD; D/C ed HD catheter Surgery following re foot; C/W rest of current management Progress Note: Quality Stroke Does the patient have a stroke diagnosis?: No
--- NOTE | 2022-09-19 14:07 | P.PNGS_ITS ---
Subjective Subjective Date of Service: 09/19/22 Patient reports: no new complaints Physical Exam Vital Signs: Vital Signs: Last Vital Signs Temp 97.9 F 09/19/22 11:15 Pulse 85 09/19/22 11:15 Resp 18 09/19/22 11:15 BP 133/79 09/19/22 11:15 Pulse Ox 96 09/19/22 11:15 O2 Del Method Room Air 09/19/22 11:15 O2 Flow Rate 2 09/06/22 11:54 BMI result Body Mass Index 31.8 Const: General: comfortable Nutritional Appearance: well nourished Orientation/consciousness: patient oriented x3 Limitations: no limitations Resp: Effort & Inspection: normal respiratory effort Neuro: General: patient oriented x3 Extrem: Other: Left foot with necrotic great toe as well as distal segments of 2nd-5th toes. No erythema or skin necrosis above this. On the right foot, mainly the distal right great toe with necrosis is identified. Objective Data Active Medications Acetaminophen (Acetaminophen 325 Mg Tablet) 650 mg PO Q6H PRN PRN Reason: Pain, Mild (Pain Scale 1-3) Last Admin: 09/19/22 08:38 Dose: 650 mg Documented By: DONELL Bupropion HCl (Bupropion Hcl 100 Mg Tablet) 150 mg PO Q72H [facility] Last Admin: 09/18/22 09:55 Dose: 150 mg Documented By: DONELL Calcium Carbonate (Calcium Carbonate 500 Mg Tablet) 500 mg PO TID [facility] Last Admin: 09/19/22 08:39 Dose: 500 mg Documented By: DONELL Clonazepam (Clonazepam 1 Mg Tablet) 1 mg PO BID PRN PRN Reason: anxiety Last Admin: 09/19/22 12:20 Dose: 1 mg Documented By: DONELL Docusate Sodium (Docusate Sodium 100 Mg Capsule) 200 mg PO DAILY [facility] Last Admin: 09/19/22 08:38 Dose: 200 mg Documented By: DONELL Heparin Sodium (Porcine) (Heparin Sodium,Porcine 5,000 Unit/Ml Vial) 5,000 unit SUBCUT BID [facility] Last Admin: 09/19/22 08:38 Dose: 5,000 unit Documented By: DONELL Hydroxyzine HCl (Hydroxyzine Hcl 50 Mg Tablet) 50 mg PO BID PRN PRN Reason: Anxiety Mirtazapine (Mirtazapine 30 Mg Tablet) 30 mg PO BEDTIME [facility] Last Admin: 09/18/22 20:40 Dose: 30 mg Documented By: LUBA Olanzapine (Olanzapine 10 Mg Tablet) 20 mg PO BEDTIME [facility] Last Admin: 09/18/22 20:40 Dose: 20 mg Documented By: LUBA Ondansetron HCl (Ondansetron Hcl 4 Mg/2 Ml Vial) 4 mg IVPUSH Q8H PRN PRN Reason: Nausea and Vomiting Polyethylene Glycol (Polyethylene Glycol 3350 17 Gm Powd.Pack) 17 gm PO DAILY [facility] Last Admin: 09/19/22 08:45 Dose: Not Given Documented By: DONELL Non-Admin Reason: Patient Refused Sertraline HCl (Sertraline Hcl 50 Mg Tablet) 150 mg PO DAILY [facility] Last Admin: 09/19/22 08:35 Dose: 150 mg Documented By: DONELL Sodium Chloride (0.9 % Sodium Chloride Flush 3 Ml Syringe) 3 ml IVFLUSH QSHIFT [facility] Last Admin: 09/19/22 08:35 Dose: 3 ml Documented By: DONELL Trazodone HCl (Trazodone Hcl 100 Mg Tablet) 100 mg PO BEDTIME [facility] Last Admin: 09/18/22 20:40 Dose: 100 mg Documented By: LUBA Labs 09/15/22 08:51 09/19/22 05:35 Labs: Laboratory Results - last 24 hr 09/19/22 05:35 Anion Gap 14 Estim Creat Clear Calc 25.5 Estimated GFR 16 Random Glucose 99 Calcium 9.8 Procedures Date of Service Date of Service: 09/19/22 Progress Note: A&P Assessment and plan (1) Frostbite: Status: Acute Plan Bilateral toe necrosis due to frostbite, involving all 5 left toes and the great toe right foot. I recommended a left foot transmetatarsal amputation and right foot great toe amputation. After a discussion of the procedure, alternatives and risks, he consents to the surgery. He will be added on to the OR schedule for tomorrow. Time Spent With Patient Time: Total time managing care of this patient today ____ minutes. Quality Stroke Does the patient have a stroke diagnosis?: No VTE Prior VTE?: No VTE Risk Level:: Medical - moderate - high VTE Device Contraindication: Treatment Not Indicated VTE Drug Contraindication: N/A - Med Ordered
--- NOTE | 2022-09-19 14:28 | P.CDIM_ITS ---
PROVIDER RESPONSE TEXT: To clarify, the appropriate diagnosis supported by the clinical indicators: Pressure (decubitus) ulcer: 2 QUERY TEXT: PHYSICIAN'S DOCUMENTATION REQUEST Date of Query: 09/19/2022 07:48 AM EDT Patient Name: Quintin Heard Admit Date: 08/31/2022 Dear Patricia House, A review of the medical record indicates additional documentation may be needed. Please review below and update the documentation accordingly. Clinical Indicators: Per nursing Wound assessment/Pressure injury documentation 09/09/22 - 09/10/22: wound coccyx stage 2 Based on the above, could you please provide further information regarding the ulcer/wound: Pressure (decubitus) ulcer Please include the stage of the ulcer and specify the location and laterality of the ulcer/wound Traumatic wound Please specify the location and laterality of the ulcer/wound Other, please specify Other (explain) Clinically unable to determine (explain) Thank you, Ivelisse Malin RN Use of terms such as suspected, likely, concern for, or probable (associated with a specific diagnosi s that is being evaluated, monitored, or treated as if it exists) are acceptable and can be coded in the inpatient se tting, when documented at the time of discharge. Please use your independent medical judgment in providing your response. THIS QUERY IS PART OF THE PERMANENT MEDICAL RECORD
[2022-09-19 15:17] VITALS: BP 131/80; PULSE 97; RESP 17; TEMP 36.7; O2SAT 95
[2022-09-19 19:46] VITALS: BP 128/78; PULSE 97; RESP 17; TEMP 37; O2SAT 97
[2022-09-19] MEDS: Mirtazapine 30 MG TABLET PO (19:50)
[2022-09-19] MEDS: OLANZapine 10 MG TABLET 20 MG PO (19:50)
[2022-09-19] MEDS: traZODone HCL 100 MG TABLET PO (19:51)
[2022-09-19 23:02] VITALS: BP 132/83; PULSE 97; RESP 18; TEMP 36.6; O2SAT 95
[2022-09-20] VITALS (12 sets, daily range): BP systolic 122–137; BP diastolic 79–94; PULSE 59–116; RESP 16–20; TEMP 36–37.3; O2SAT 95–99; BMI 31.6
--- NOTE | 2022-09-20 08:46 | HO.PM.IMPN ---
Subjective Subjective Date of Service: 09/20/22 Interval History: patient seen and examined at bedside. plan for amputation this morning. He reports no pain at this time, no chest pain, no nausea or vomiting, no abdominal pain no diarrhea constipation, no urinary symptoms. Review of Systems No recent cold or flu-like illness or trauma. Review of Systems: Yes all other systems are reviewed and are negative Constitutional Constitutional: Denies chills, Denies fever(s), Denies headache(s), Reports poor appetite and Reports weakness Eyes Eyes: Denies dry eyes ENT Ears, Nose, Mouth, and Throat: Denies dizziness, Denies dry mouth and Denies headache(s) Cardiovascular Cardiovascular: Denies chest pain, Denies irregular heart rhythm, Denies leg edema, Denies palpitations, Denies dyspnea and Denies dyspnea on exertion Respiratory Respiratory: Denies cough, Denies excessive phlegm production, Denies dyspnea and Denies dyspnea on exertion Gastrointestinal Gastrointestinal: Denies abdominal pain, Denies bloating, Denies change in bowel habits, Denies constipation, Denies heartburn, Denies diarrhea, Denies nausea and Denies vomiting Genitourinary Genitourinary: Denies hematuria, Denies difficulty urinating, Denies urinary frequency and Denies urinary incontinence Musculoskeletal Musculoskeletal: Denies back pain, Reports muscle weakness, Reports numbness and Denies tingling Integumentary/Breasts Skin/Breast: Reports as per HPI, Denies changing lesions, Reports skin swelling and Reports unusual bruising Neurologic Neurologic: Denies dizziness, Denies headache(s), Denies focal weakness, Reports numbness, Denies tingling, Denies paresthesias and Reports weakness Psychiatric Psychiatric: Denies anxiety and Denies depression Endocrine Endocrine: Denies palpitations Hematologic/Lymphatic Hematologic/Lymphatic: Denies lymphadenopathy Physical Exam Vital Signs: Vital Signs: Last Vital Signs Temp 98.4 F 09/20/22 07:37 Pulse 82 09/20/22 07:37 Resp 16 09/20/22 07:37 BP 125/80 09/20/22 07:37 Pulse Ox 97 09/20/22 07:37 O2 Del Method Room Air 09/20/22 07:37 O2 Flow Rate 2 09/06/22 11:54 BMI result Body Mass Index 31.6 Const: Other: patient alert oriented x3 Resp: Other: clear to auscultations bilaterally Cardio: Other: rate and rhythm controlled GI: Other: abdomen is soft nontender, Skin: Other: General skin exam: no rashes or lesions noted Extrem: Other: Left foot with necrotic great toe as well as distal segments of 2nd-5th toes. No erythema or skin necrosis above this. On the right foot, mainly the distal right great toe with necrosis is identified. Objective Data Active Medications Acetaminophen (Acetaminophen 325 Mg Tablet) 650 mg PO Q6H PRN PRN Reason: Pain, Mild (Pain Scale 1-3) Last Admin: 09/19/22 19:51 Dose: 650 mg Documented By: JI Bupropion HCl (Bupropion Hcl 100 Mg Tablet) 150 mg PO Q72H [facility] Last Admin: 09/18/22 09:55 Dose: 150 mg Documented By: DONELL Calcium Carbonate (Calcium Carbonate 500 Mg Tablet) 500 mg PO TID [facility] Last Admin: 09/19/22 19:50 Dose: 500 mg Documented By: JI Clonazepam (Clonazepam 1 Mg Tablet) 1 mg PO BID PRN PRN Reason: anxiety Last Admin: 09/19/22 19:51 Dose: 1 mg Documented By: JI Docusate Sodium (Docusate Sodium 100 Mg Capsule) 200 mg PO DAILY [facility] Last Admin: 09/19/22 08:38 Dose: 200 mg Documented By: DONELL Heparin Sodium (Porcine) (Heparin Sodium,Porcine 5,000 Unit/Ml Vial) 5,000 unit SUBCUT BID [facility] Last Admin: 09/19/22 19:51 Dose: Not Given Documented By: JI Non-Admin Reason: Physician Approved Hydroxyzine HCl (Hydroxyzine Hcl 50 Mg Tablet) 50 mg PO BID PRN PRN Reason: Anxiety Cefazolin Sodium/Dextrose (Ancef) 2 gm in 50 mls @ 100 mls/hr IV PREOP@1000 [facility] Stop: 09/20/22 10:29 Mirtazapine (Mirtazapine 30 Mg Tablet) 30 mg PO BEDTIME [facility] Last Admin: 09/19/22 19:50 Dose: 30 mg Documented By: JI Olanzapine (Olanzapine 10 Mg Tablet) 20 mg PO BEDTIME [facility] Last Admin: 09/19/22 19:50 Dose: 20 mg Documented By: JI Ondansetron HCl (Ondansetron Hcl 4 Mg/2 Ml Vial) 4 mg IVPUSH Q8H PRN PRN Reason: Nausea and Vomiting Polyethylene Glycol (Polyethylene Glycol 3350 17 Gm Powd.Pack) 17 gm PO DAILY [facility] Last Admin: 09/19/22 08:45 Dose: Not Given Documented By: DONELL Non-Admin Reason: Patient Refused Sertraline HCl (Sertraline Hcl 50 Mg Tablet) 150 mg PO DAILY [facility] Last Admin: 09/19/22 08:35 Dose: 150 mg Documented By: DONELL Sodium Chloride (0.9 % Sodium Chloride Flush 3 Ml Syringe) 3 ml IVFLUSH QSHIFT [facility] Last Admin: 09/19/22 19:51 Dose: 3 ml Documented By: JI Trazodone HCl (Trazodone Hcl 100 Mg Tablet) 100 mg PO BEDTIME [facility] Last Admin: 09/19/22 19:51 Dose: 100 mg Documented By: JI Labs 09/15/22 08:51 09/19/22 05:35 Assessment and Plan (1) Frostbite: Status: Acute (2) Elevated troponin level not due to acute coronary syndrome: Status: Acute (3) Discoloration of skin of toe: Status: Acute (4) OLIVIA (acute kidney injury): Status: Acute (5) Rhabdomyolysis: Status: Acute (6) Toe necrosis: Status: Acute Plan 52yo homeless M with anxiety + depression, opioid dependence, PTSD presenting with severe BLE weakness after immobility x3d, admitted for OLIVIA due to rhabdomyolysis; was down for estimated 2-3d OLIVIA due to rhabdomyolysis (pigment nephrotoxicity), acute . - Resolving - s/p dialysis x2 sessions, - temp cath removed 09/19, with adequate urine output - follow bmp - nephrology following # Toe necrosis - Frostbite with gangrenous tissue to both feet - continue Betadine soaks daily - Plan for amputation of toes Left foot and great toe right foot 09/20/22 # weakness - due to question of flexion myelopathy, - MRI of thoracic spine was done and showed extensive T2 signal change involving the paraspinal musculature possibly sequela of rhabdomyolysis, but no definite thoracic cord signal changes noted - continue physical therapy daily and will require prolonged rehabilitation course # hyperphosphatemia - improved, no indication for binders at this time # hyperK -resolved - follow bmp # toxic-metabolic encephalopathy likely due to cocaine induced encephalopathy - resolved - seen by Neurology; no specific treatment recommended. # polysubstance abuse - Addiction Medicine consulted - declined medication for opioid use disorder # mood disorder - continue bupropion [renally dosed], clonazepam, mirtapazine, olanzapine, sertraline, and trazodone; no behavioral issues noted VTE ppx: [facility] dispo: will need prolonged rehab In my clinical judgment, the patient requires continued inpatient hospitalization for the following reasons: OLIVIA, gangrenous foot Time Spent With Patient Time: Total time managing care of this patient today ____ minutes. Quality Stroke Does the patient have a stroke diagnosis?: No VTE Prior VTE?: No VTE Risk Level:: Medical - moderate - high VTE Device Contraindication: Treatment Not Indicated VTE Drug Contraindication: N/A - Med Ordered
[2022-09-20 09:08] LABS: MANUAL DIFF FLAG NO
[2022-09-20 09:12] LABS: Basophils Absolute Auto 0.1 X10*3/uL (0.0-0.2); Basophils Percent Auto 1.2 % (0-2); Eosinophils Absolute Auto 0.4 X10*3/uL (0.0-0.4); Eosinophils Percent Auto 3.8 % (0-4); Hematocrit 32.4 % (42.0-52.0); Hemoglobin 10.3 g/dl (14.0-18.0); Imm Gran Abs Auto 0.05 X10*3/uL (0.00-0.03); Imm Gran Pct Auto 0.5 % (0.0-0.4); Lymphocytes Absolute Auto 2.4 X10*3/uL (1.2-4.9); Lymphocytes Percent Auto 25.3 % (20-40); Mean Corpuscular HGB Conc 31.8 g/dl (31.0-36.0); Mean Corpuscular Hemoglobin 27.9 pg (27.0-33.0); Mean Corpuscular Volume 87.8 fL (80.0-98.0); Mean Platelet Volume 8.6 fL (9.4-12.4); Monocytes Percent Auto 10.7 % (2-11); Neutrophils Absolute Auto 5.4 x10*3/uL (2.0-8.3); Neutrophils Percent Auto 58.5 % (45-73); Platelet Count 538 X10*3/uL (160-400); Red Blood Count 3.69 X10*6/uL (4.60-5.80); Red Cell Distribution Width 14.4 % (11.0-16.0); White Blood Count 9.3 X10*3/uL (4.8-10.8)
[2022-09-20] MEDS: Sertraline HCL 50 MG TABLET 150 MG PO (09:26)
[2022-09-20 09:27] LABS: Anion Gap 13 (12-20); Blood Urea Nitrogen 28 mg/dL (9-16); Calcium 9.9 mg/dL (8.4-10.2); Carbon Dioxide 29 mmol/L (22-29); Chloride 105 mmol/L (96-108); Creatinine Clr Calc Pharmacy 30.8; Estimated Glomerular Filt Rate 20; Glucose Random 92 mg/dL (60-115); Potassium 4.1 mmol/L (3.3-5.1); Sodium 143 mmol/L (135-145)
[2022-09-20] MEDS: Docusate Sodium 100 MG CAPSULE 200 MG PO (09:27)
[2022-09-20] MEDS: clonazePAM 1 MG TABLET PO ×2 (09:27→20:58)
[2022-09-20] MEDS: 0.9 % Sodium Chloride Flush 3 ML SYRINGE IVFLUSH ×2 (09:29→17:56)
--- NOTE | 2022-09-20 10:23 | MHC.CM.PN ---
Per ROUNDS discussion, Patient is getting an amputation today and is therefore not yet medically cleared for dc. PT is recommending STR and CM will continue to follow.
--- NOTE | 2022-09-20 10:57 | MHC.SHP ---
Pre-Procedural Eval Section A Date of Service: 09/20/22 The patient is an INPATIENT: Yes Changes since office visit: Yes Patient answered all questions; No Cold of Flu in the past 2 weeks, No New Medical Problems and No Changes in Medication The History & Physical has been completed within 30 days and I have reviewed it.: Yes Section B Chief Complaint: RHabdo, severe peter Allergies: Allergies Allergy/AdvReac Type Severity Reaction Status Date / Time No Known Allergies Allergy Verified 11/07/20 02:03 [No Known Allergies*] Plan Diagnosis/Plan: Unchanged I have reviewed the history and physical and performed a pertinent physical examination on my patient. No changes have occurred unless specified. Time Spent With Patient Time: Total time managing care of this patient today ____ minutes.
--- NOTE | 2022-09-20 11:20 | HO.ANESPROP2 ---
HPI - Anesthesia Eval Consult details Narrative: for left transmetatarsal amput, and right great toe amput (bec of frostbite). PENDING SALE TO [facility] Active Problems Active Problems: All Active Problems (Updated 09/01/22 @ 11:28 by David Perrin MD) Metabolic acidosis (Acute) Frostbite (Acute) Elevated troponin level not due to acute coronary syndrome (Acute) Discoloration of skin of toe (Acute) UTI (urinary tract infection) (Acute) Hyperkalemia (Acute) OLIVIA (acute kidney injury) (Acute) Rhabdomyolysis (Acute) Chronic post-traumatic stress disorder (PTSD) (Chronic) Mood disorder (Acute) Past Medical History Medical History Anxiety Chronic post-traumatic stress disorder (PTSD) Depression Opioid dependence on agonist therapy Suicidal ideation Family History Family history of problems with anesthesia: No Surgical History History of Problems with Anesthesia: No Social History Social History Household Members: None Housing: Homeless Do you presently have visiting nurse or other home services: No Alcohol intake: never Patient Tobacco Use Status: Former Tobacco user Quit Date: 11/07/20 Tobacco use type: Cigarette Cigarette Packs Per Day: 0.5 Cigarettes Per Day: 10.0 Years Smoked: 20 e-Cigarette/Vaping Use: Never Used Second Hand Smoke Exposure: No Substance Use Type: Crack/Cocaine and Opiates service: No Current occupational status: employed Sexual orientation: Straight/Heterosexual Meds Allergies Allergy/AdvReac Type Severity Reaction Status Date / Time No Known Allergies Allergy Verified 11/07/20 02:03 [No Known Allergies*] Active Medications: Current Medications Acetaminophen (Acetaminophen 325 Mg Tablet) 650 mg PO Q6H PRN PRN Reason: Pain, Mild (Pain Scale 1-3) Last Admin: 09/19/22 19:51 Dose: 650 mg Bupropion HCl (Bupropion Hcl 100 Mg Tablet) 150 mg PO Q72H [place] Last Admin: 09/18/22 09:55 Dose: 150 mg Calcium Carbonate (Calcium Carbonate 500 Mg Tablet) 500 mg PO TID [place] Last Admin: 09/20/22 09:27 Dose: 500 mg Clonazepam (Clonazepam 1 Mg Tablet) 1 mg PO BID PRN PRN Reason: anxiety Last Admin: 09/20/22 09:27 Dose: 1 mg Docusate Sodium (Docusate Sodium 100 Mg Capsule) 200 mg PO DAILY [facility] Last Admin: 09/20/22 09:27 Dose: 200 mg Heparin Sodium (Porcine) (Heparin Sodium,Porcine 5,000 Unit/Ml Vial) 5,000 unit SUBCUT BID [facility] Last Admin: 09/20/22 09:30 Dose: Not Given Hydroxyzine HCl (Hydroxyzine Hcl 50 Mg Tablet) 50 mg PO BID PRN PRN Reason: Anxiety Mirtazapine (Mirtazapine 30 Mg Tablet) 30 mg PO BEDTIME [facility] Last Admin: 09/19/22 19:50 Dose: 30 mg Olanzapine (Olanzapine 10 Mg Tablet) 20 mg PO BEDTIME [facility] Last Admin: 09/19/22 19:50 Dose: 20 mg Ondansetron HCl (Ondansetron Hcl 4 Mg/2 Ml Vial) 4 mg IVPUSH Q8H PRN PRN Reason: Nausea and Vomiting Polyethylene Glycol (Polyethylene Glycol 3350 17 Gm Powd.Pack) 17 gm PO DAILY [facility] Last Admin: 09/20/22 09:30 Dose: Not Given Sertraline HCl (Sertraline Hcl 50 Mg Tablet) 150 mg PO DAILY [facility] Last Admin: 09/20/22 09:26 Dose: 150 mg Sodium Chloride (0.9 % Sodium Chloride Flush 3 Ml Syringe) 3 ml IVFLUSH QSHIFT [facility] Last Admin: 09/20/22 09:29 Dose: 3 ml Trazodone HCl (Trazodone Hcl 100 Mg Tablet) 100 mg PO BEDTIME [facility] Last Admin: 09/19/22 19:51 Dose: 100 mg Home Medications Medication Instructions Recorded Confirmed Last Taken Type bupropion HCl 150 mg tablet,12 hr 150 mg PO DAILY 08/31/22 08/31/22 Unknown History sustained-release clonazepam 1 mg tablet 1 mg PO BID 08/31/22 08/31/22 Unknown History hydroxyzine pamoate 50 mg capsule 50 mg PO BID PRN Anxiety 08/31/22 08/31/22 Unknown History mirtazapine 30 mg tablet 30 mg PO BEDTIME 08/31/22 08/31/22 Unknown History olanzapine 20 mg tablet 20 mg PO BEDTIME 08/31/22 08/31/22 Unknown History sertraline 100 mg tablet 150 mg PO DAILY 08/31/22 08/31/22 Unknown History trazodone 50 mg tablet 100 mg PO BEDTIME 08/31/22 08/31/22 Unknown History Exam Exam Date and Time: September 20, 2022 1120 Height,Weight and Vital Signs: Height 5 ft 9 in Weight 97.3 kg Last Vital Signs Temp 97.6 F 09/20/22 10:32 Pulse 94 09/20/22 10:32 Resp 16 09/20/22 10:32 BP 123/83 09/20/22 10:32 Pulse Ox 97 09/20/22 10:32 O2 Del Method Room Air 09/20/22 10:32 O2 Flow Rate 2 09/06/22 11:54 Pertinent Lab Results Pertinent Lab Results: Laboratory Tests 08/30/22 08/30/22 08/30/22 20:36 20:36 20:36 WBC 15.6 H RBC 5.23 Hgb 14.7 Hct 42.1 MCV 80.5 MCH 28.1 MCHC 34.9 RDW 15.5 Plt Count 247 MPV 10.0 Immature Gran % (Auto) 0.8 H Neut % (Auto) 79.4 H Lymph % (Auto) 7.9 L Rich % (Auto) 11.5 H Eos % (Auto) 0.2 Baso % (Auto) 0.2 Lymph # (Auto) 1.2 Rich # (Auto) 1.8 H Eos # (Auto) 0.0 Baso # (Auto) 0.0 Abs Immat Gran (auto) 0.13 H Absolute Neuts (auto) 12.4 H Absolute Nucleated RBC 0.000 Nucleated RBC % (auto) 0.0 Smear Tech's Comments VERIFIED ESR PT INR Sodium 137 Potassium 5.5 H D Chloride 98 Carbon Dioxide 15 L Anion Gap 30 H BUN 155 H Creatinine 10.03 H* Estim Creat Clear Calc 10.0 Estimated GFR 5 POC Glucose Random Glucose 134 H Lactic Acid Calcium 7.3 L D Phosphorus Magnesium Total Bilirubin 0.8 AST 277 H ALT 674 H Alkaline Phosphatase 73 Total Creatine Kinase 36714 H Troponin I High Sens 174.6 H* Total Protein 6.4 L Albumin 3.7 Urine Color Urine Appearance Urine pH Ur Specific Cooter Urine Protein Urine Glucose (UA) Urine Ketones Urine Blood Urine Nitrite Ur Leukocyte Esterase Urine RBC Urine WBC Ur Squamous Epith Cells Urine Bacteria Hyaline Casts Urine Opiates Screen Urine Fentanyl Screen Ur Barbiturates Screen Ur Phencyclidine Scrn Ur Amphetamines Screen U Benzodiazepines Scrn Urine Cocaine Screen U Marijuana (THC) Screen Ethyl Alcohol Hep Bs Antigen Hep Bs Antibody Hep B Core Total Ab Hep B Core IgM Ab Hepatitis C Ab (EIA) Hep C Viral Load Hep C Viral Load Log HIV 1&2 Ab/P24 Ag 4thGn Influenza Type A (PCR) Influenza Type B (PCR) RSV RNA Qual (PCR) SARS-CoV-2 RNA (RT-PCR) 08/30/22 08/30/22 08/30/22 20:36 20:36 20:36 WBC RBC Hgb Hct MCV MCH MCHC RDW Plt Count MPV Immature Gran % (Auto) Neut % (Auto) Lymph % (Auto) Rich % (Auto) Eos % (Auto) Baso % (Auto) Lymph # (Auto) Rich # (Auto) Eos # (Auto) Baso # (Auto) Abs Immat Gran (auto) Absolute Neuts (auto) Absolute Nucleated RBC Nucleated RBC % (auto) Smear Tech's Comments ESR 73 H PT INR Sodium Potassium Chloride Carbon Dioxide Anion Gap BUN Creatinine Estim Creat Clear Calc Estimated GFR POC Glucose Random Glucose Lactic Acid 1.7 Calcium Phosphorus Magnesium 3.3 H Total Bilirubin AST ALT Alkaline Phosphatase Total Creatine Kinase Troponin I High Sens Total Protein Albumin Urine Color Urine Appearance Urine pH Ur Specific Cooter Urine Protein Urine Glucose (UA) Urine Ketones Urine Blood Urine Nitrite Ur Leukocyte Esterase Urine RBC Urine WBC Ur Squamous Epith Cells Urine Bacteria Hyaline Casts Urine Opiates Screen Urine Fentanyl Screen Ur Barbiturates Screen Ur Phencyclidine Scrn Ur Amphetamines Screen U Benzodiazepines Scrn Urine Cocaine Screen U Marijuana (THC) Screen Ethyl Alcohol < 10 Hep Bs Antigen Hep Bs Antibody Hep B Core Total Ab Hep B Core IgM Ab Hepatitis C Ab (EIA) Hep C Viral Load Hep C Viral Load Log HIV 1&2 Ab/P24 Ag 4thGn Influenza Type A (PCR) Influenza Type B (PCR) RSV RNA Qual (PCR) SARS-CoV-2 RNA (RT-PCR) 08/30/22 08/30/22 08/31/22 20:36 22:42 00:39 WBC RBC Hgb Hct MCV MCH MCHC RDW Plt Count MPV Immature Gran % (Auto) Neut % (Auto) Lymph % (Auto) Rich % (Auto) Eos % (Auto) Baso % (Auto) Lymph # (Auto) Rich # (Auto) Eos # (Auto) Baso # (Auto) Abs Immat Gran (auto) Absolute Neuts (auto) Absolute Nucleated RBC Nucleated RBC % (auto) Smear Tech's Comments ESR PT INR Sodium Potassium Chloride Carbon Dioxide Anion Gap BUN Creatinine Estim Creat Clear Calc Estimated GFR POC Glucose Random Glucose Lactic Acid Calcium Phosphorus Magnesium Total Bilirubin AST ALT Alkaline Phosphatase Total Creatine Kinase Troponin I High Sens 154.6 H* Total Protein Albumin Urine Color Dark Yellow Urine Appearance Cloudy Urine pH 5.0 Ur Specific Cooter 1.020 Urine Protein 100 (2+) H Urine Glucose (UA) 500 H Urine Ketones Trace Urine Blood Large (3+) H Urine Nitrite Negative Ur Leukocyte Esterase Trace H Urine RBC 11-20 H Urine WBC 0-5 Ur Squamous Epith Cells 0-2 Urine Bacteria None Seen Hyaline Casts 0-2 Urine Opiates Screen Urine Fentanyl Screen Ur Barbiturates Screen Ur Phencyclidine Scrn Ur Amphetamines Screen U Benzodiazepines Scrn Urine Cocaine Screen U Marijuana (THC) Screen Ethyl Alcohol Hep Bs Antigen Hep Bs Antibody Hep B Core Total Ab Hep B Core IgM Ab Hepatitis C Ab (EIA) Hep C Viral Load Hep C Viral Load Log HIV 1&2 Ab/P24 Ag 4thGn Influenza Type A (PCR) NEGATIVE Influenza Type B (PCR) NEGATIVE RSV RNA Qual (PCR) NEGATIVE SARS-CoV-2 RNA (RT-PCR) NEGATIVE 08/31/22 08/31/22 09/01/22 07:11 16:27 06:38 WBC RBC Hgb Hct MCV MCH MCHC RDW Plt Count MPV Immature Gran % (Auto) Neut % (Auto) Lymph % (Auto) Rich % (Auto) Eos % (Auto) Baso % (Auto) Lymph # (Auto) Rich # (Auto) Eos # (Auto) Baso # (Auto) Abs Immat Gran (auto) Absolute Neuts (auto) Absolute Nucleated RBC Nucleated RBC % (auto) Smear Tech's Comments ESR PT INR Sodium 138 138 Potassium 5.4 H 4.6 Chloride 107 101 Carbon Dioxide 14 L 18 L Anion Gap 22 H 24 H BUN 147 H 161 H Creatinine 9.57 H* 10.96 H* Estim Creat Clear Calc 10.5 9.1 Estimated GFR 6 5 POC Glucose Random Glucose 138 H 138 H Lactic Acid Calcium 6.1 L D 6.5 L D Phosphorus Magnesium Total Bilirubin 0.6 AST 207 H ALT 434 H Alkaline Phosphatase 58 Total Creatine Kinase 21778 H 76360 H Troponin I High Sens Total Protein 4.9 L Albumin 2.8 L Urine Color Urine Appearance Urine pH Ur Specific Cooter Urine Protein Urine Glucose (UA) Urine Ketones Urine Blood Urine Nitrite Ur Leukocyte Esterase Urine RBC Urine WBC Ur Squamous Epith Cells Urine Bacteria Hyaline Casts Urine Opiates Screen POSITIVE H Urine Fentanyl Screen POSITIVE H Ur Barbiturates Screen Not Detected Ur Phencyclidine Scrn Not Detected Ur Amphetamines Screen Not Detected U Benzodiazepines Scrn Not Detected Urine Cocaine Screen POSITIVE H U Marijuana (THC) Screen Not Detected Ethyl Alcohol Hep Bs Antigen Hep Bs Antibody Hep B Core Total Ab Hep B Core IgM Ab Hepatitis C Ab (EIA) Hep C Viral Load Hep C Viral Load Log HIV 1&2 Ab/P24 Ag 4thGn Influenza Type A (PCR) Influenza Type B (PCR) RSV RNA Qual (PCR) SARS-CoV-2 RNA (RT-PCR) 09/01/22 09/02/22 09/02/22 12:17 06:22 06:22 WBC RBC Hgb Hct MCV MCH MCHC RDW Plt Count MPV Immature Gran % (Auto) Neut % (Auto) Lymph % (Auto) Rich % (Auto) Eos % (Auto) Baso % (Auto) Lymph # (Auto) Rich # (Auto) Eos # (Auto) Baso # (Auto) Abs Immat Gran (auto) Absolute Neuts (auto) Absolute Nucleated RBC Nucleated RBC % (auto) Smear Tech's Comments ESR PT 11.5 INR 1.0 Sodium 141 Potassium 4.1 Chloride 95 L Carbon Dioxide 28 Anion Gap 22 H BUN 137 H Creatinine 9.99 H* Estim Creat Clear Calc 10.0 Estimated GFR 6 POC Glucose Random Glucose 125 H Lactic Acid Calcium 7.1 L D Phosphorus Magnesium Total Bilirubin 0.6 AST 82 H ALT 206 H Alkaline Phosphatase 72 Total Creatine Kinase 8003 H Troponin I High Sens Total Protein 4.7 L Albumin 2.5 L Urine Color Urine Appearance Urine pH Ur Specific Cooter Urine Protein Urine Glucose (UA) Urine Ketones Urine Blood Urine Nitrite Ur Leukocyte Esterase Urine RBC Urine WBC Ur Squamous Epith Cells Urine Bacteria Hyaline Casts Urine Opiates Screen Urine Fentanyl Screen Ur Barbiturates Screen Ur Phencyclidine Scrn Ur Amphetamines Screen U Benzodiazepines Scrn Urine Cocaine Screen U Marijuana (THC) Screen Ethyl Alcohol Hep Bs Antigen Negative Hep Bs Antibody REACTIVE Hep B Core Total Ab Reactive Hep B Core IgM Ab Cancelled Hepatitis C Ab (EIA) Hep C Viral Load Hep C Viral Load Log HIV 1&2 Ab/P24 Ag 4thGn Nonreactive Influenza Type A (PCR) Influenza Type B (PCR) RSV RNA Qual (PCR) SARS-CoV-2 RNA (RT-PCR) 09/02/22 09/02/22 09/03/22 06:22 06:23 06:32 WBC 9.3 10.6 RBC 4.44 L 4.14 L Hgb 12.5 L 12.0 L Hct 35.7 L 34.5 L MCV 80.4 83.3 MCH 28.2 29.0 MCHC 35.0 34.8 RDW 15.2 15.7 Plt Count 187 190 MPV 10.1 10.7 Immature Gran % (Auto) Neut % (Auto) Lymph % (Auto) Rich % (Auto) Eos % (Auto) Baso % (Auto) Lymph # (Auto) Rich # (Auto) Eos # (Auto) Baso # (Auto) Abs Immat Gran (auto) Absolute Neuts (auto) Absolute Nucleated RBC 0.000 0.000 Nucleated RBC % (auto) 0.0 0.0 Smear Tech's Comments ESR PT INR Sodium Potassium Chloride Carbon Dioxide Anion Gap BUN Creatinine Estim Creat Clear Calc Estimated GFR POC Glucose Random Glucose Lactic Acid Calcium Phosphorus Magnesium Total Bilirubin AST ALT Alkaline Phosphatase Total Creatine Kinase Troponin I High Sens Total Protein Albumin Urine Color Urine Appearance Urine pH Ur Specific Cooter Urine Protein Urine Glucose (UA) Urine Ketones Urine Blood Urine Nitrite Ur Leukocyte Esterase Urine RBC Urine WBC Ur Squamous Epith Cells Urine Bacteria Hyaline Casts Urine Opiates Screen Urine Fentanyl Screen Ur Barbiturates Screen Ur Phencyclidine Scrn Ur Amphetamines Screen U Benzodiazepines Scrn Urine Cocaine Screen U Marijuana (THC) Screen Ethyl Alcohol Hep Bs Antigen Hep Bs Antibody Hep B Core Total Ab Hep B Core IgM Ab Hepatitis C Ab (EIA) Reactive H Hep C Viral Load Hep C Viral Load Log HIV 1&2 Ab/P24 Ag 4thGn Influenza Type A (PCR) Influenza Type B (PCR) RSV RNA Qual (PCR) SARS-CoV-2 RNA (RT-PCR) 09/03/22 09/04/22 09/04/22 06:32 06:42 15:00 WBC RBC Hgb Hct MCV MCH MCHC RDW Plt Count MPV Immature Gran % (Auto) Neut % (Auto) Lymph % (Auto) Rich % (Auto) Eos % (Auto) Baso % (Auto) Lymph # (Auto) Rich # (Auto) Eos # (Auto) Baso # (Auto) Abs Immat Gran (auto) Absolute Neuts (auto) Absolute Nucleated RBC Nucleated RBC % (auto) Smear Tech's Comments ESR PT INR Sodium 140 139 Potassium 4.5 5.1 Chloride 93 L 88 L Carbon Dioxide 31 H 31 H Anion Gap 21 H 25 H BUN 122 H 134 H Creatinine 10.63 H* 11.53 H* Estim Creat Clear Calc 9.4 8.7 Estimated GFR 5 5 POC Glucose Random Glucose 120 H 107 Lactic Acid Calcium 6.9 L 6.8 L Phosphorus Magnesium Total Bilirubin AST ALT Alkaline Phosphatase Total Creatine Kinase 4515 H 3213 H Troponin I High Sens Total Protein Albumin Urine Color Urine Appearance Urine pH Ur Specific Cooter Urine Protein Urine Glucose (UA) Urine Ketones Urine Blood Urine Nitrite Ur Leukocyte Esterase Urine RBC Urine WBC Ur Squamous Epith Cells Urine Bacteria Hyaline Casts Urine Opiates Screen Urine Fentanyl Screen Ur Barbiturates Screen Ur Phencyclidine Scrn Ur Amphetamines Screen U Benzodiazepines Scrn Urine Cocaine Screen U Marijuana (THC) Screen Ethyl Alcohol Hep Bs Antigen Hep Bs Antibody Hep B Core Total Ab Hep B Core IgM Ab Hepatitis C Ab (EIA) Hep C Viral Load <15 NOT DETECTED Hep C Viral Load Log <1.18 NOT DETECTED HIV 1&2 Ab/P24 Ag 4thGn Influenza Type A (PCR) Influenza Type B (PCR) RSV RNA Qual (PCR) SARS-CoV-2 RNA (RT-PCR) 09/05/22 09/05/22 09/07/22 06:07 06:07 05:45 WBC 13.5 H RBC 4.04 L Hgb 11.5 L Hct 33.9 L MCV 83.9 MCH 28.5 MCHC 33.9 RDW 15.1 Plt Count 213 MPV 9.7 Immature Gran % (Auto) Neut % (Auto) Lymph % (Auto) Rich % (Auto) Eos % (Auto) Baso % (Auto) Lymph # (Auto) Rich # (Auto) Eos # (Auto) Baso # (Auto) Abs Immat Gran (auto) Absolute Neuts (auto) Absolute Nucleated RBC 0.000 Nucleated RBC % (auto) 0.0 Smear Tech's Comments ESR PT INR Sodium 140 138 Potassium 4.7 4.7 Chloride 83 L 91 L Carbon Dioxide 36 H 31 H Anion Gap 26 H 21 H BUN 141 H 118 H Creatinine 12.61 H* 10.92 H* Estim Creat Clear Calc 8.4 9.6 Estimated GFR 4 5 POC Glucose Random Glucose 112 108 Lactic Acid Calcium 6.7 L 7.3 L D Phosphorus Magnesium Total Bilirubin 0.5 AST 40 H ALT 96 H Alkaline Phosphatase 92 Total Creatine Kinase 2584 H 1350 H Troponin I High Sens Total Protein 4.2 L Albumin 2.2 L Urine Color Urine Appearance Urine pH Ur Specific Cooter Urine Protein Urine Glucose (UA) Urine Ketones Urine Blood Urine Nitrite Ur Leukocyte Esterase Urine RBC Urine WBC Ur Squamous Epith Cells Urine Bacteria Hyaline Casts Urine Opiates Screen Urine Fentanyl Screen Ur Barbiturates Screen Ur Phencyclidine Scrn Ur Amphetamines Screen U Benzodiazepines Scrn Urine Cocaine Screen U Marijuana (THC) Screen Ethyl Alcohol Hep Bs Antigen Hep Bs Antibody Hep B Core Total Ab Hep B Core IgM Ab Hepatitis C Ab (EIA) Hep C Viral Load Hep C Viral Load Log HIV 1&2 Ab/P24 Ag 4thGn Influenza Type A (PCR) Influenza Type B (PCR) RSV RNA Qual (PCR) SARS-CoV-2 RNA (RT-PCR) 09/08/22 09/09/22 09/09/22 14:58 06:03 06:03 WBC 14.8 H RBC 3.48 L Hgb 9.8 L Hct 29.3 L MCV 84.2 MCH 28.2 MCHC 33.4 RDW 14.9 Plt Count 349 D MPV 9.5 Immature Gran % (Auto) Neut % (Auto) Lymph % (Auto) Rich % (Auto) Eos % (Auto) Baso % (Auto) Lymph # (Auto) Rich # (Auto) Eos # (Auto) Baso # (Auto) Abs Immat Gran (auto) Absolute Neuts (auto) Absolute Nucleated RBC 0.000 Nucleated RBC % (auto) 0.0 Smear Tech's Comments ESR PT INR Sodium 140 Potassium 4.7 Chloride 101 Carbon Dioxide 26 Anion Gap 18 BUN 106 H Creatinine 9.65 H* Estim Creat Clear Calc 10.8 Estimated GFR 6 POC Glucose 132 H Random Glucose 98 Lactic Acid Calcium 8.4 D Phosphorus Magnesium Total Bilirubin AST ALT Alkaline Phosphatase Total Creatine Kinase Troponin I High Sens Total Protein Albumin Urine Color Urine Appearance Urine pH Ur Specific Cooter Urine Protein Urine Glucose (UA) Urine Ketones Urine Blood Urine Nitrite Ur Leukocyte Esterase Urine RBC Urine WBC Ur Squamous Epith Cells Urine Bacteria Hyaline Casts Urine Opiates Screen Urine Fentanyl Screen Ur Barbiturates Screen Ur Phencyclidine Scrn Ur Amphetamines Screen U Benzodiazepines Scrn Urine Cocaine Screen U Marijuana (THC) Screen Ethyl Alcohol Hep Bs Antigen Hep Bs Antibody Hep B Core Total Ab Hep B Core IgM Ab Hepatitis C Ab (EIA) Hep C Viral Load Hep C Viral Load Log HIV 1&2 Ab/P24 Ag 4thGn Influenza Type A (PCR) Influenza Type B (PCR) RSV RNA Qual (PCR) SARS-CoV-2 RNA (RT-PCR) 09/10/22 09/10/22 09/11/22 06:12 06:12 05:48 WBC 15.4 H RBC 3.31 L Hgb 9.6 L Hct 28.4 L MCV 85.8 MCH 29.0 MCHC 33.8 RDW 14.7 Plt Count 363 MPV 9.7 Immature Gran % (Auto) Neut % (Auto) Lymph % (Auto) Rich % (Auto) Eos % (Auto) Baso % (Auto) Lymph # (Auto) Rich # (Auto) Eos # (Auto) Baso # (Auto) Abs Immat Gran (auto) Absolute Neuts (auto) Absolute Nucleated RBC 0.000 Nucleated RBC % (auto) 0.0 Smear Tech's Comments ESR PT INR Sodium 136 141 Potassium 4.3 4.4 Chloride 101 105 Carbon Dioxide 22 23 Anion Gap 17 17 BUN 72 H 85 H Creatinine 7.60 H* 8.42 H* Estim Creat Clear Calc 13.4 11.7 Estimated GFR 8 7 POC Glucose Random Glucose 104 95 Lactic Acid Calcium 8.2 L 9.0 D Phosphorus Magnesium Total Bilirubin 0.7 AST 26 ALT 55 H Alkaline Phosphatase 83 Total Creatine Kinase 273 H Troponin I High Sens Total Protein 5.3 L Albumin 2.9 L Urine Color Urine Appearance Urine pH Ur Specific Cooter Urine Protein Urine Glucose (UA) Urine Ketones Urine Blood Urine Nitrite Ur Leukocyte Esterase Urine RBC Urine WBC Ur Squamous Epith Cells Urine Bacteria Hyaline Casts Urine Opiates Screen Urine Fentanyl Screen Ur Barbiturates Screen Ur Phencyclidine Scrn Ur Amphetamines Screen U Benzodiazepines Scrn Urine Cocaine Screen U Marijuana (THC) Screen Ethyl Alcohol Hep Bs Antigen Hep Bs Antibody Hep B Core Total Ab Hep B Core IgM Ab Hepatitis C Ab (EIA) Hep C Viral Load Hep C Viral Load Log HIV 1&2 Ab/P24 Ag 4thGn Influenza Type A (PCR) Influenza Type B (PCR) RSV RNA Qual (PCR) SARS-CoV-2 RNA (RT-PCR) 09/12/22 09/13/22 09/14/22 05:46 05:53 05:48 WBC RBC Hgb Hct MCV MCH MCHC RDW Plt Count MPV Immature Gran % (Auto) Neut % (Auto) Lymph % (Auto) Rich % (Auto) Eos % (Auto) Baso % (Auto) Lymph # (Auto) Rich # (Auto) Eos # (Auto) Baso # (Auto) Abs Immat Gran (auto) Absolute Neuts (auto) Absolute Nucleated RBC Nucleated RBC % (auto) Smear Tech's Comments ESR PT INR Sodium 139 141 142 Potassium 4.1 3.8 3.9 Chloride 106 105 105 Carbon Dioxide 23 23 24 Anion Gap 14 17 17 BUN 85 H 83 H 74 H D Creatinine 8.26 H* 7.66 H* 7.29 H* Estim Creat Clear Calc 12.2 13.1 13.7 Estimated GFR 7 7 8 POC Glucose Random Glucose 94 108 96 Lactic Acid Calcium 8.9 9.2 9.9 D Phosphorus 6.6 H 5.9 H 5.4 H Magnesium 2.4 Total Bilirubin AST ALT Alkaline Phosphatase Total Creatine Kinase Troponin I High Sens Total Protein Albumin Urine Color Urine Appearance Urine pH Ur Specific Cooter Urine Protein Urine Glucose (UA) Urine Ketones Urine Blood Urine Nitrite Ur Leukocyte Esterase Urine RBC Urine WBC Ur Squamous Epith Cells Urine Bacteria Hyaline Casts Urine Opiates Screen Urine Fentanyl Screen Ur Barbiturates Screen Ur Phencyclidine Scrn Ur Amphetamines Screen U Benzodiazepines Scrn Urine Cocaine Screen U Marijuana (THC) Screen Ethyl Alcohol Hep Bs Antigen Hep Bs Antibody Hep B Core Total Ab Hep B Core IgM Ab Hepatitis C Ab (EIA) Hep C Viral Load Hep C Viral Load Log HIV 1&2 Ab/P24 Ag 4thGn Influenza Type A (PCR) Influenza Type B (PCR) RSV RNA Qual (PCR) SARS-CoV-2 RNA (RT-PCR) 09/15/22 09/15/22 09/16/22 08:51 08:51 06:34 WBC 11.9 H RBC 3.60 L Hgb 10.0 L Hct 31.7 L MCV 88.1 MCH 27.8 MCHC 31.5 RDW 14.6 Plt Count 634 H D MPV 8.6 L Immature Gran % (Auto) Neut % (Auto) Lymph % (Auto) Rich % (Auto) Eos % (Auto) Baso % (Auto) Lymph # (Auto) Rich # (Auto) Eos # (Auto) Baso # (Auto) Abs Immat Gran (auto) Absolute Neuts (auto) Absolute Nucleated RBC 0.000 Nucleated RBC % (auto) 0.0 Smear Tech's Comments ESR PT INR Sodium 142 140 Potassium 3.9 4.2 Chloride 103 106 Carbon Dioxide 23 22 Anion Gap 20 16 BUN 66 H 55 H Creatinine 6.55 H* 5.49 H* Estim Creat Clear Calc 15.3 18.2 Estimated GFR 9 11 POC Glucose Random Glucose 150 H 87 Lactic Acid Calcium 10.5 H D 9.9 Phosphorus Magnesium Total Bilirubin AST ALT Alkaline Phosphatase Total Creatine Kinase Troponin I High Sens Total Protein Albumin Urine Color Urine Appearance Urine pH Ur Specific Cooter Urine Protein Urine Glucose (UA) Urine Ketones Urine Blood Urine Nitrite Ur Leukocyte Esterase Urine RBC Urine WBC Ur Squamous Epith Cells Urine Bacteria Hyaline Casts Urine Opiates Screen Urine Fentanyl Screen Ur Barbiturates Screen Ur Phencyclidine Scrn Ur Amphetamines Screen U Benzodiazepines Scrn Urine Cocaine Screen U Marijuana (THC) Screen Ethyl Alcohol Hep Bs Antigen Hep Bs Antibody Hep B Core Total Ab Hep B Core IgM Ab Hepatitis C Ab (EIA) Hep C Viral Load Hep C Viral Load Log HIV 1&2 Ab/P24 Ag 4thGn Influenza Type A (PCR) Influenza Type B (PCR) RSV RNA Qual (PCR) SARS-CoV-2 RNA (RT-PCR) 09/17/22 09/18/22 09/19/22 05:43 06:00 05:35 WBC RBC Hgb Hct MCV MCH MCHC RDW Plt Count MPV Immature Gran % (Auto) Neut % (Auto) Lymph % (Auto) Rich % (Auto) Eos % (Auto) Baso % (Auto) Lymph # (Auto) Rich # (Auto) Eos # (Auto) Baso # (Auto) Abs Immat Gran (auto) Absolute Neuts (auto) Absolute Nucleated RBC Nucleated RBC % (auto) Smear Tech's Comments ESR PT INR Sodium 143 141 142 Potassium 4.1 3.8 3.6 Chloride 105 104 105 Carbon Dioxide 29 27 27 Anion Gap 13 14 14 BUN 48 H 38 H 36 H Creatinine 5.19 H* 4.38 H* 3.87 H Estim Creat Clear Calc 19.0 22.5 25.5 Estimated GFR 12 14 16 POC Glucose Random Glucose 92 99 99 Lactic Acid Calcium 10.1 9.9 9.8 Phosphorus Magnesium Total Bilirubin AST ALT Alkaline Phosphatase Total Creatine Kinase Troponin I High Sens Total Protein Albumin Urine Color Urine Appearance Urine pH Ur Specific Cooter Urine Protein Urine Glucose (UA) Urine Ketones Urine Blood Urine Nitrite Ur Leukocyte Esterase Urine RBC Urine WBC Ur Squamous Epith Cells Urine Bacteria Hyaline Casts Urine Opiates Screen Urine Fentanyl Screen Ur Barbiturates Screen Ur Phencyclidine Scrn Ur Amphetamines Screen U Benzodiazepines Scrn Urine Cocaine Screen U Marijuana (THC) Screen Ethyl Alcohol Hep Bs Antigen Hep Bs Antibody Hep B Core Total Ab Hep B Core IgM Ab Hepatitis C Ab (EIA) Hep C Viral Load Hep C Viral Load Log HIV 1&2 Ab/P24 Ag 4thGn Influenza Type A (PCR) Influenza Type B (PCR) RSV RNA Qual (PCR) SARS-CoV-2 RNA (RT-PCR) 09/20/22 09/20/22 08:57 08:57 WBC 9.3 RBC 3.69 L Hgb 10.3 L Hct 32.4 L MCV 87.8 MCH 27.9 MCHC 31.8 RDW 14.4 Plt Count 538 H MPV 8.6 L Immature Gran % (Auto) 0.5 H Neut % (Auto) 58.5 Lymph % (Auto) 25.3 Rich % (Auto) 10.7 Eos % (Auto) 3.8 Baso % (Auto) 1.2 Lymph # (Auto) 2.4 Rich # (Auto) 1.0 Eos # (Auto) 0.4 Baso # (Auto) 0.1 Abs Immat Gran (auto) 0.05 H Absolute Neuts (auto) 5.4 Absolute Nucleated RBC 0.000 Nucleated RBC % (auto) 0.0 Smear Tech's Comments ESR PT INR Sodium 143 Potassium 4.1 Chloride 105 Carbon Dioxide 29 Anion Gap 13 BUN 28 H Creatinine 3.22 H Estim Creat Clear Calc 30.8 Estimated GFR 20 POC Glucose Random Glucose 92 Lactic Acid Calcium 9.9 Phosphorus Magnesium Total Bilirubin AST ALT Alkaline Phosphatase Total Creatine Kinase Troponin I High Sens Total Protein Albumin Urine Color Urine Appearance Urine pH Ur Specific Cooter Urine Protein Urine Glucose (UA) Urine Ketones Urine Blood Urine Nitrite Ur Leukocyte Esterase Urine RBC Urine WBC Ur Squamous Epith Cells Urine Bacteria Hyaline Casts Urine Opiates Screen Urine Fentanyl Screen Ur Barbiturates Screen Ur Phencyclidine Scrn Ur Amphetamines Screen U Benzodiazepines Scrn Urine Cocaine Screen U Marijuana (THC) Screen Ethyl Alcohol Hep Bs Antigen Hep Bs Antibody Hep B Core Total Ab Hep B Core IgM Ab Hepatitis C Ab (EIA) Hep C Viral Load Hep C Viral Load Log HIV 1&2 Ab/P24 Ag 4thGn Influenza Type A (PCR) Influenza Type B (PCR) RSV RNA Qual (PCR) SARS-CoV-2 RNA (RT-PCR) Airway Mallampati Class: I TM Dist: >3cm Neck ROM: Full Denture: Upper Partial: Lower Heart: ok Lungs: ok Assessment and Plan Assessment Anesthesia Assessment: Anesthesia Plan Discussed and Chart Reviewed Final Anesthetic Review Family History of Problems with Anesthesia: No History of Problems with Anesthesia: No NPO: Yes ASA Class: IV Final Preanesthetic Review: No Changes in Pt Med Stat, Meds/Allgs Chart Reviewed, Consent Obtained/Reviewed and Anes Risks/Benef Reviewed Patient Risk: Intermediate Procedure Risk: Low Anesthetic Plan Anesthetic Plan: GA and Regional Block (left ankle block, right toe block) Disposition: Standard PACU
--- NOTE | 2022-09-20 11:55 | W.PM.OPN ---
Operative Note Operative Note Date of Service: 09/20/22 Narrative: Preoperative diagnosis: frostbite, necrotic toes bilateral feet Postoperative diagnosis: same Procedure: left transmetatarsal amputation, right great toe amputation Surgeon: Drew Greer MD Bridge/Structure Inspection Team Leader: Ju Storm PA-C Anesthesia:general, LMA, regional block Indications for procedure: 52-year-old male patient with history of frostbite involving bilateral feet and hands presenting today with necrosis of the 5 toes of the left foot and 1st toe of the right foot. Operative findings: necrotic changes of the 5 toes of left foot and great toe of right foot. Specimen: Transmetatarsal amputation left foot, great toe amputation right foot Estimated blood loss: 50 mL Complications: none Procedure details: patient was brought to the OR and placed in a supine position. After administering general anesthesia the patient's bilateral feet were prepped with Betadine and draped in a sterile fashion. A regional block was applied by Anesthesia. Surgical time-out was called the consent confirmed. Patient received preoperative antibiotics and Venodyne boots were in place. A tourniquet was applied to the left leg. an elliptical incision was then made to include all toes with a scalpel and the incision carried down to the metatarsal heads of all 5 toes. Hemostasis was assured all times using electrocautery and free ties of 2-0 Polysorb. The dissection was continued circumferentially down to bone at the distal metatarsal heads. Once the bones were fully exposed a periosteal elevator was used to dissect further proximal on the bone. Bone saw was then used to divide all 5 bones. This was then smoothed with a rongeur and file. Wounds were then irrigated with saline solution. Tourniquet was taken down and hemostasis assured using electrocautery and free ties of 2-0 Polysorb. The deep fascial tissue was then reapproximated using interrupted 3-0 Polysorb suture. Dermis was reapproximated using interrupted 3-0 Polysorb sutures. Skin was then closed using a mattress 3-0 nylon suture. Attention was then directed to the right foot were elliptical incision was made around the great toe extending up the medial surface. The incision was carried out through subcutaneous tissue down to the 1st metatarsal head. This was continued circumferentially with electrocautery. Periosteal elevator was then used to elevate the periosteum more proximally. Hemostasis was assured using electrocautery. Electrocautery was then used to divide the metatarsal phalangeal joint. The metatarsal head was then resected further proximally using a rongeur. Wounds were then irrigated with saline solution and suctioned dry. Deep subcutaneous tissue and dermis were then reapproximated using interrupted 3-0 Polysorb sutures. Skin was then closed using interrupted 3-0 nylon sutures in a mattress fashion. Sterile dressings consisting of fluff gauze, Kerlix, ABD and Jimmie bandage were then applied bilaterally. The patient tolerated the procedure well. Sponge, instrument, and needle counts reported as correct. The patient was transferred to PACU in stable condition.
[2022-09-20] MEDS: HYDROmorphone HCl 0.5 MG/0.5 ML SYRINGE IVPUSH ×2 (16:14→20:59)
[2022-09-20] MEDS: oxyCODONE HCl Immed Release 5 MG TABLET PO (17:56)
[2022-09-20] MEDS: OLANZapine 10 MG TABLET 20 MG PO (20:58)
[2022-09-20] MEDS: Mirtazapine 30 MG TABLET PO (20:58)
[2022-09-20] MEDS: traZODone HCL 100 MG TABLET PO (20:58)
[2022-09-20] MEDS: Heparin Sodium,Porcine 5,000 UNIT/ML VIAL 5000 UNIT SUBCUT (20:59)
--- NOTE | 2022-09-20 21:09 | PM.PNNEP ---
Subjective Subjective Date of Service: 09/20/22 Interval history: no pain at this time, no chest pain, no nausea or vomiting, no abdominal pain no diarrhea constipation, no urinary symptoms. All recent data reviewed Physical Exam Vital Signs: Vital Signs: Last Vital Signs Temp 98.9 F 09/20/22 19:01 Pulse 102 H 09/20/22 19:01 Resp 18 09/20/22 19:01 BP 132/81 09/20/22 19:01 Pulse Ox 97 09/20/22 19:01 O2 Del Method Room Air 09/20/22 19:01 O2 Flow Rate 2 09/06/22 11:54 BMI result Body Mass Index 31.6 Const: General: no acute distress Orientation/consciousness: patient oriented x3 Eyes: EOM: EOMs intact bilaterally Resp: Auscultation: diminished lung sounds Cardio: Rate: regular rate GI: Palpation (GI): Soft to palpation Neuro: General: patient oriented x3 Objective Data Labs 09/20/22 08:57 09/20/22 08:57 Labs: Laboratory Results - last 24 hr 09/20/22 09/20/22 08:57 08:57 WBC 9.3 RBC 3.69 L Hgb 10.3 L Hct 32.4 L MCV 87.8 MCH 27.9 MCHC 31.8 RDW 14.4 Plt Count 538 H MPV 8.6 L Immature Gran % (Auto) 0.5 H Neut % (Auto) 58.5 Lymph % (Auto) 25.3 [place] % (Auto) 10.7 Eos % (Auto) 3.8 Baso % (Auto) 1.2 Lymph # (Auto) 2.4 [place] # (Auto) 1.0 Eos # (Auto) 0.4 Baso # (Auto) 0.1 Abs Immat Gran (auto) 0.05 H Absolute Neuts (auto) 5.4 Absolute Nucleated RBC 0.000 Nucleated RBC % (auto) 0.0 Sodium 143 Potassium 4.1 Chloride 105 Carbon Dioxide 29 Anion Gap 13 BUN 28 H Creatinine 3.22 H Estim Creat Clear Calc 30.8 Estimated GFR 20 Random Glucose 92 Calcium 9.9 Total Creatine Kinase 58 Microbiology Microbiology Results: Microbiology 08/30/22 21:00 Blood - Venous Blood Culture - Final No growth after 5 days. 08/30/22 21:00 Blood - Venous Blood Culture - Final No growth after 5 days. Procedures Date of Service Date of Service: 09/20/22 Assessment & Plan Assessment and plan (1) OLIVIA (acute kidney injury): Status: Acute Assessment and Plan: Non-Oliguric OLIVIA: c/w Rhabdo ATN s/p HD x 2 Renal function improving; Electrolytes OK No need for further HD; D/C ed HD catheter Surgery following re foot; C/W rest of current management Time Spent With Patient Time: . Progress Note: Quality Stroke Does the patient have a stroke diagnosis?: No
[2022-09-21] VITALS (8 sets, daily range): BP systolic 112–138; BP diastolic 59–79; PULSE 98–127; RESP 16–20; TEMP 36.3–36.8; O2SAT 95–97; BMI 30.2
[2022-09-21] MEDS: HYDROmorphone HCl 0.5 MG/0.5 ML SYRINGE IVPUSH ×4 (03:27→20:13)
[2022-09-21] MEDS: 0.9 % Sodium Chloride Flush 3 ML SYRINGE IVFLUSH ×3 (03:27→15:28)
[2022-09-21 06:36] LABS: Anion Gap 15 (12-20); Blood Urea Nitrogen 25 mg/dL (9-16); Calcium 9.2 mg/dL (8.4-10.2); Carbon Dioxide 25 mmol/L (22-29); Chloride 104 mmol/L (96-108); Estimated Glomerular Filt Rate 23; Glucose Random 98 mg/dL (60-115); Sodium 140 mmol/L (135-145)
--- NOTE | 2022-09-21 07:35 | PM.PNGS ---
Subjective Subjective Date of Service: 09/21/22 Interval history: POD #1 s/p Left TMA and Right Patient reports incisional pain this morning. Took pain meds last night which did help. Physical Exam Vital Signs: Vital Signs: Last Vital Signs Temp 98.1 F 09/21/22 07:16 Pulse 116 H 09/21/22 07:16 Resp 20 09/21/22 07:16 BP 123/79 09/21/22 07:16 Pulse Ox 96 09/21/22 07:16 O2 Del Method Room Air 09/21/22 07:16 O2 Flow Rate 2 09/06/22 11:54 BMI result Body Mass Index 30.2 Objective Data Active Medications Acetaminophen (Acetaminophen 325 Mg Tablet) 650 mg PO Q6H PRN PRN Reason: Pain, Mild (Pain Scale 1-3) Last Admin: 09/19/22 19:51 Dose: 650 mg Documented By: JI Bupropion HCl (Bupropion Hcl 100 Mg Tablet) 150 mg PO Q72H ON LICENSE OF [facility] Last Admin: 09/18/22 09:55 Dose: 150 mg Documented By: DONELL Calcium Carbonate (Calcium Carbonate 500 Mg Tablet) 500 mg PO TID ON LICENSE OF [facility] Last Admin: 09/20/22 20:58 Dose: 500 mg Documented By: TREY Clonazepam (Clonazepam 1 Mg Tablet) 1 mg PO BID PRN PRN Reason: anxiety Last Admin: 09/20/22 20:58 Dose: 1 mg Documented By: TREY Docusate Sodium (Docusate Sodium 100 Mg Capsule) 200 mg PO DAILY ON LICENSE OF [facility] Last Admin: 09/20/22 09:27 Dose: 200 mg Documented By: JOSUE Heparin Sodium (Porcine) (Heparin Sodium,Porcine 5,000 Unit/Ml Vial) 5,000 unit SUBCUT BID ON LICENSE OF [facility] Last Admin: 09/20/22 20:59 Dose: 5,000 unit Documented By: TREY Hydromorphone HCl (Hydromorphone Hcl 0.5 Mg/0.5 Ml Syringe) 0.5 mg IVPUSH Q3H PRN; Protocol PRN Reason: Pain, Severe (Pain Scale 7-10) Last Admin: 09/21/22 03:27 Dose: 0.5 mg Documented By: JI Hydroxyzine HCl (Hydroxyzine Hcl 50 Mg Tablet) 50 mg PO BID PRN PRN Reason: Anxiety Mirtazapine (Mirtazapine 30 Mg Tablet) 30 mg PO BEDTIME ON LICENSE OF [facility] Last Admin: 09/20/22 20:58 Dose: 30 mg Documented By: TREY Olanzapine (Olanzapine 10 Mg Tablet) 20 mg PO BEDTIME ON LICENSE OF [facility] Last Admin: 09/20/22 20:58 Dose: 20 mg Documented By: TREY Ondansetron HCl (Ondansetron Hcl 4 Mg/2 Ml Vial) 4 mg IVPUSH Q8H PRN PRN Reason: Nausea and Vomiting Oxycodone HCl (Oxycodone Hcl Immed Release 5 Mg Tablet) 5 mg PO Q6H PRN PRN Reason: Pain, Moderate (Pain Scale 4-6 Last Admin: 09/20/22 17:56 Dose: 5 mg Documented By: TREY Polyethylene Glycol (Polyethylene Glycol 3350 17 Gm Powd.Pack) 17 gm PO DAILY ON LICENSE OF [facility] Last Admin: 09/20/22 09:30 Dose: Not Given Documented By: JOSUE Non-Admin Reason: Patient Refused Sertraline HCl (Sertraline Hcl 50 Mg Tablet) 150 mg PO DAILY ON LICENSE OF [facility] Last Admin: 09/20/22 09:26 Dose: 150 mg Documented By: JOSUE Sodium Chloride (0.9 % Sodium Chloride Flush 3 Ml Syringe) [facility] Last Admin: 09/21/22 03:27 Dose: 3 ml Documented By: JI Trazodone HCl (Trazodone Hcl 100 Mg Tablet) 100 mg PO BEDTIME ON LICENSE OF [facility] Last Admin: 09/20/22 20:58 Dose: 100 mg Documented By: TREY Labs 09/20/22 08:57 09/21/22 05:52 Labs: Laboratory Results - last 24 hr 09/20/22 09/20/22 09/21/22 08:57 08:57 05:52 MCV 87.8 MCH 27.9 MCHC 31.8 RDW 14.4 Plt Count 538 H MPV 8.6 L Immature Gran % (Auto) 0.5 H Neut % (Auto) 58.5 Lymph % (Auto) 25.3 [place] % (Auto) 10.7 Eos % (Auto) 3.8 Baso % (Auto) 1.2 Lymph # (Auto) 2.4 [place] # (Auto) 1.0 Eos # (Auto) 0.4 Baso # (Auto) 0.1 Abs Immat Gran (auto) 0.05 H Absolute Neuts (auto) 5.4 Absolute Nucleated RBC 0.000 Nucleated RBC % (auto) 0.0 Anion Gap 13 15 Estim Creat Clear Calc 30.8 34.0 Estimated GFR 20 23 Random Glucose 92 98 Calcium 9.9 9.2 D Total Creatine Kinase 58 Procedures Date of Service Date of Service: 09/21/22 Progress Note: A&P Assessment and plan (1) Frostbite: Status: Acute Plan POD #1 s/p Lt TMP and Rt. Great Toe. He remains stable with clean dressings. Will change dressings tomorrow. Appears to have adequate pain control. Can be OOB with physical therapy today. Time Spent With Patient Time: Total time managing care of this patient today ____ minutes. Quality Stroke Does the patient have a stroke diagnosis?: No VTE Prior VTE?: No VTE Risk Level:: Medical - moderate - high VTE Device Contraindication: Treatment Not Indicated VTE Drug Contraindication: N/A - Med Ordered
[2022-09-21] MEDS: polyethylene glycoL 3350 17 GM POWD.PACK PO (08:37)
[2022-09-21] MEDS: Heparin Sodium,Porcine 5,000 UNIT/ML VIAL 5000 UNIT SUBCUT ×2 (08:37→20:09)
[2022-09-21] MEDS: Sertraline HCL 50 MG TABLET 150 MG PO (08:38)
[2022-09-21] MEDS: Docusate Sodium 100 MG CAPSULE 200 MG PO (08:38)
[2022-09-21] MEDS: buPROPion HCL 100 MG TABLET 150 MG PO (08:38)
--- NOTE | 2022-09-21 09:45 | PM.PNNEP ---
Subjective Subjective Date of Service: 09/21/22 Interval history: Renal function improving. All recent data reviewed Physical Exam Vital Signs: Vital Signs: Last Vital Signs Temp 98.1 F 09/21/22 07:16 Pulse 116 H 09/21/22 07:16 Resp 20 09/21/22 07:16 BP 123/79 09/21/22 07:16 Pulse Ox 96 09/21/22 07:16 O2 Del Method Room Air 09/21/22 07:16 O2 Flow Rate 2 09/06/22 11:54 BMI result Body Mass Index 30.2 Const: General: no acute distress Orientation/consciousness: patient oriented x3 Eyes: EOM: EOMs intact bilaterally Resp: Auscultation: diminished lung sounds Cardio: Rate: regular rate GI: Palpation (GI): Soft to palpation Neuro: General: patient oriented x3 Objective Data Labs 09/20/22 08:57 09/21/22 05:52 Labs: Laboratory Results - last 24 hr 09/20/22 09/21/22 08:57 05:52 Sodium 140 Potassium 4.0 Chloride 104 Carbon Dioxide 25 Anion Gap 15 BUN 25 H Creatinine 2.86 H Estim Creat Clear Calc 34.0 Estimated GFR 23 Random Glucose 98 Calcium 9.2 D Total Creatine Kinase 58 Microbiology Microbiology Results: Microbiology 08/30/22 21:00 Blood - Venous Blood Culture - Final No growth after 5 days. 08/30/22 21:00 Blood - Venous Blood Culture - Final No growth after 5 days. Procedures Date of Service Date of Service: 09/21/22 Assessment & Plan Assessment and plan (1) OLIVIA (acute kidney injury): Status: Acute Assessment and Plan: Non-Oliguric OLIVIA: c/w Rhabdo ATN s/p HD x 2 Renal function improving; Electrolytes OK No need for further HD; D/C ed HD catheter Surgery following re foot; C/W rest of current management Progress Note: Quality Stroke Does the patient have a stroke diagnosis?: No
[2022-09-21] MEDS: oxyCODONE HCl Immed Release 5 MG TABLET PO ×2 (10:22→16:41)
--- NOTE | 2022-09-21 11:00 | HO.POSTANES ---
Post Anesthesia Evaluation Post Anesthesia Evaluation Vital Signs: Vital Signs Temp Pulse Resp BP Pulse Ox O2 Del Method 09/21/22 09:51 116 H 123/79 96 09/21/22 07:16 98.1 F 116 H 20 123/79 96 Room Air 09/21/22 03:25 97.6 F 116 H 20 138/77 95 Room Air 09/20/22 23:02 98.4 F 116 H 18 134/82 96 Room Air Anesthesia: Nerve Block and General Mental Status: Awake Pain Control: Satisfactory Nausea/Vomiting: None Hydration: Adequate Anesthesia-Related Issues: No Anes. Related Issues
--- NOTE | 2022-09-21 12:07 | HO.PM.IMPN ---
Subjective Subjective Date of Service: 09/21/22 Interval History: seen and examined this morning follow up for frostbite, olivia s/p left transmetatarsal and right great toe amputation yesterday having pain at amputation sites, otherwise feeling ok. no chest pain, shortness of breath, abdominal pain Review of Systems Review of Systems: Yes all other systems are reviewed and are negative Constitutional Constitutional: Denies chills and Denies fever(s) Cardiovascular Cardiovascular: Denies chest pain, Denies palpitations and Denies dyspnea Respiratory Respiratory: Denies cough and Denies dyspnea Gastrointestinal Gastrointestinal: Denies abdominal pain, Denies nausea and Denies vomiting Endocrine Endocrine: Denies palpitations Physical Exam Vital Signs: Vital Signs: Last Vital Signs Temp 97.3 F 09/21/22 11:20 Pulse 127 H 09/21/22 11:20 Resp 18 09/21/22 11:20 BP 128/78 09/21/22 11:20 Pulse Ox 97 09/21/22 11:20 O2 Del Method Room Air 09/21/22 11:20 O2 Flow Rate 2 09/06/22 11:54 BMI result Body Mass Index 30.2 Const: General: cooperative, comfortable, alert and awake Nutritional Appearance: average body habitus Orientation/consciousness: patient oriented x3 Resp: Effort & Inspection: normal respiratory effort, able to speak in complete sentences, no respiratory distress and no use of accessory muscles Cardio: Rate: tachycardic Heart sounds: S1 normal heart sound present and S2 normal heart sound present GI: Inspection: No distended Palpation (GI): Soft to palpation and nontender Neuro: General: patient oriented x3 and CN's II-XI intact bilaterally Extrem: Other: s/p left TMA; s/p right great toe amp; both feet wrapped in dressings; mild staining to right dressing General: Yes no pedal edema Objective Data Active Medications Acetaminophen (Acetaminophen 325 Mg Tablet) 650 mg PO Q6H PRN PRN Reason: Pain, Mild (Pain Scale 1-3) Last Admin: 09/19/22 19:51 Dose: 650 mg Documented By: JI Bupropion HCl (Bupropion Hcl 100 Mg Tablet) 150 mg PO Q72H [facility] Last Admin: 09/21/22 08:38 Dose: 150 mg Documented By: AHMET Calcium Carbonate (Calcium Carbonate 500 Mg Tablet) 500 mg PO TID [facility] Last Admin: 09/21/22 08:38 Dose: 500 mg Documented By: AHMET Docusate Sodium (Docusate Sodium 100 Mg Capsule) 200 mg PO DAILY [facility] Last Admin: 09/21/22 08:38 Dose: 200 mg Documented By: AHMET Heparin Sodium (Porcine) (Heparin Sodium,Porcine 5,000 Unit/Ml Vial) 5,000 unit SUBCUT BID [facility] Last Admin: 09/21/22 08:37 Dose: 5,000 unit Documented By: AHMET Hydromorphone HCl (Hydromorphone Hcl 0.5 Mg/0.5 Ml Syringe) 0.5 mg IVPUSH Q3H PRN; Protocol PRN Reason: Pain, Severe (Pain Scale 7-10) Last Admin: 09/21/22 08:37 Dose: 0.5 mg Documented By: AHMET Hydroxyzine HCl (Hydroxyzine Hcl 50 Mg Tablet) 50 mg PO BID PRN PRN Reason: Anxiety Mirtazapine (Mirtazapine 30 Mg Tablet) 30 mg PO BEDTIME [facility] Last Admin: 09/20/22 20:58 Dose: 30 mg Documented By: TREY Olanzapine (Olanzapine 10 Mg Tablet) 20 mg PO BEDTIME [facility] Last Admin: 09/20/22 20:58 Dose: 20 mg Documented By: TREY Ondansetron HCl (Ondansetron Hcl 4 Mg/2 Ml Vial) 4 mg IVPUSH Q8H PRN PRN Reason: Nausea and Vomiting Oxycodone HCl (Oxycodone Hcl Immed Release 5 Mg Tablet) 5 mg PO Q6H PRN PRN Reason: Pain, Moderate (Pain Scale 4-6 Last Admin: 09/21/22 10:22 Dose: 5 mg Documented By: AHMET Polyethylene Glycol (Polyethylene Glycol 3350 17 Gm Powd.Pack) 17 gm PO DAILY [facility] Last Admin: 09/21/22 08:37 Dose: 17 gm Documented By: AHMET Sertraline HCl (Sertraline Hcl 50 Mg Tablet) 150 mg PO DAILY [facility] Last Admin: 09/21/22 08:38 Dose: 150 mg Documented By: AHMET Sodium Chloride (0.9 % Sodium Chloride Flush 3 Ml Syringe) 3 ml IVFLUSH QSHIFT [facility] Last Admin: 09/21/22 08:38 Dose: 3 ml Documented By: AHMET Trazodone HCl (Trazodone Hcl 100 Mg Tablet) 100 mg PO BEDTIME [facility] Last Admin: 09/20/22 20:58 Dose: 100 mg Documented By: TREY Labs 09/20/22 08:57 09/21/22 05:52 Labs: Laboratory Results - last 24 hr 09/20/22 09/21/22 08:57 05:52 Anion Gap 15 Estim Creat Clear Calc 34.0 Estimated GFR 23 Random Glucose 98 Calcium 9.2 D Total Creatine Kinase 58 Assessment and Plan (1) Toe necrosis: Status: Acute (2) Frostbite: Status: Acute (3) OLIVIA (acute kidney injury): Status: Acute Plan 52yo homeless M with anxiety + depression, opioid dependence, PTSD presenting with severe BLE weakness after immobility x3d, admitted for OLIVIA due to rhabdomyolysis; was down for estimated 2-3d OLIVIA due to rhabdomyolysis (pigment nephrotoxicity), acute . - Resolving - s/p dialysis x2 sessions, - temp cath removed 09/19, with adequate urine output - follow bmp - nephrology following # Toe necrosis - Frostbite with gangrenous tissue to both feet - continue Betadine soaks daily - s/p TMA Left foot and great toe right foot 09/20/22 # sinus tachycardia tele reviewed, has had intermittent tachycardia during entire admission likely more persistent r/t pain from surgery will give gentle fluid # weakness - due to question of flexion myelopathy, - MRI of thoracic spine was done and showed extensive T2 signal change involving the paraspinal musculature possibly sequela of rhabdomyolysis, but no definite thoracic cord signal changes noted - continue physical therapy daily and will require prolonged rehabilitation course # hyperphosphatemia - improved, no indication for binders at this time # hyperK -resolved - follow bmp # toxic-metabolic encephalopathy likely due to cocaine induced encephalopathy - resolved - seen by Neurology; no specific treatment recommended. # polysubstance abuse - Addiction Medicine consulted - declined medication for opioid use disorder # mood disorder - continue bupropion [renally dosed], clonazepam, mirtapazine, olanzapine, sertraline, and trazodone; no behavioral issues noted VTE ppx: UFH dispo: will need prolonged rehab attending - dr. leung In my clinical judgment, the patient requires continued inpatient hospitalization for the following reasons:wound care, pain control, rehab Time Spent With Patient Time: Total time managing care of this patient today ____ minutes. Quality Stroke Does the patient have a stroke diagnosis?: No VTE Prior VTE?: No VTE Risk Level:: Medical - moderate - high VTE Device Contraindication: Treatment Not Indicated VTE Drug Contraindication: N/A - Med Ordered
[2022-09-21] MEDS: Lactated Ringers 1,000 ML 100 ML IVCONT (12:45)
[2022-09-21] MEDS: Mirtazapine 30 MG TABLET PO (20:09)
[2022-09-21] MEDS: traZODone HCL 100 MG TABLET PO (20:09)
[2022-09-21] MEDS: OLANZapine 10 MG TABLET 20 MG PO (20:09)
[2022-09-21] MEDS: hydrOXYzine HCL 50 MG TABLET PO (20:21)
[2022-09-22 03:32] VITALS: BP 133/75; PULSE 68; RESP 18; TEMP 37.1; O2SAT 95
[2022-09-22 05:54] VITALS: BMI 30.4
[2022-09-22 06:23] LABS: Anion Gap 14 (12-20); Blood Urea Nitrogen 21 mg/dL (9-16); Calcium 9.8 mg/dL (8.4-10.2); Carbon Dioxide 27 mmol/L (22-29); Chloride 104 mmol/L (96-108); Creatinine Clr Calc Pharmacy 38.2; Estimated Glomerular Filt Rate 27; Glucose Random 102 mg/dL (60-115); Potassium 3.8 mmol/L (3.3-5.1); Sodium 141 mmol/L (135-145)
[2022-09-22 07:21] VITALS: BP 116/72; PULSE 118; RESP 18; TEMP 36.6; O2SAT 97
[2022-09-22] MEDS: Docusate Sodium 100 MG CAPSULE 200 MG PO (07:38)
[2022-09-22] MEDS: Sertraline HCL 50 MG TABLET 150 MG PO (07:38)
[2022-09-22] MEDS: oxyCODONE HCl Immed Release 5 MG TABLET PO ×2 (07:38→13:38)
[2022-09-22] MEDS: Acetaminophen 325 MG TABLET 650 MG PO ×2 (07:38→13:38)
[2022-09-22] MEDS: Heparin Sodium,Porcine 5,000 UNIT/ML VIAL 5000 UNIT SUBCUT ×2 (07:39→20:25)
[2022-09-22] MEDS: 0.9 % Sodium Chloride Flush 3 ML SYRINGE IVFLUSH ×3 (07:39→20:25)
--- NOTE | 2022-09-22 08:04 | P.PNGS_ITS ---
Subjective Subjective Date of Service: 09/22/22 Interval history: Reports some bilateral foot pain, improved with pain medication. Heart rate elevated since surgery. Was able to ambulate with walker yesterday. Physical Exam Vital Signs: Vital Signs: Last Vital Signs Temp 97.9 F 09/22/22 07:21 Pulse 118 H 09/22/22 07:21 Resp 18 09/22/22 07:21 BP 116/72 09/22/22 07:21 Pulse Ox 97 09/22/22 07:21 O2 Del Method Room Air 09/22/22 07:21 O2 Flow Rate 2 09/06/22 11:54 BMI result Body Mass Index 30.4 Const: General: comfortable and no acute distress Nutritional Appearance: well nourished Orientation/consciousness: patient oriented x3 Limitations: no limitations Resp: Other: Breathing comfortably on room air, no respiratory distress GI: Inspection: Yes normal to inspection Neuro: General: patient oriented x3 Extrem: Other: Dressings changed to bilateral foot wounds. Overall good healing with no new erythema or skin necrosis. Sutures remain intact. Some bloody discharge noted on dressings. Clean dressings applied. Objective Data Active Medications Acetaminophen (Acetaminophen 325 Mg Tablet) 650 mg PO Q6H PRN PRN Reason: Pain, Mild (Pain Scale 1-3) Last Admin: 09/22/22 07:38 Dose: 650 mg Documented By: AHMET Bupropion HCl (Bupropion Hcl 100 Mg Tablet) 150 mg PO Q72H [facility] Last Admin: 09/21/22 08:38 Dose: 150 mg Documented By: AHMET Calcium Carbonate (Calcium Carbonate 500 Mg Tablet) 500 mg PO TID [facility] Last Admin: 09/22/22 07:38 Dose: 500 mg Documented By: AHMET Docusate Sodium (Docusate Sodium 100 Mg Capsule) 200 mg PO DAILY [facility] Last Admin: 09/22/22 07:38 Dose: 200 mg Documented By: AHMET Heparin Sodium (Porcine) (Heparin Sodium,Porcine 5,000 Unit/Ml Vial) 5,000 unit SUBCUT BID [facility] Last Admin: 09/22/22 07:39 Dose: 5,000 unit Documented By: AHMET Hydromorphone HCl (Hydromorphone Hcl 0.5 Mg/0.5 Ml Syringe) 0.5 mg IVPUSH Q3H PRN; Protocol PRN Reason: Pain, Severe (Pain Scale 7-10) Last Admin: 09/21/22 20:13 Dose: 0.5 mg Documented By: TIFFANY Hydroxyzine HCl (Hydroxyzine Hcl 50 Mg Tablet) 50 mg PO BID PRN PRN Reason: Anxiety Last Admin: 09/21/22 20:21 Dose: 50 mg Documented By: TIFFANY Mirtazapine (Mirtazapine 30 Mg Tablet) 30 mg PO BEDTIME [facility] Last Admin: 09/21/22 20:09 Dose: 30 mg Documented By: TIFFANY Olanzapine (Olanzapine 10 Mg Tablet) 20 mg PO BEDTIME [facility] Last Admin: 09/21/22 20:09 Dose: 20 mg Documented By: TIFFANY Ondansetron HCl (Ondansetron Hcl 4 Mg/2 Ml Vial) 4 mg IVPUSH Q8H PRN PRN Reason: Nausea and Vomiting Oxycodone HCl (Oxycodone Hcl Immed Release 5 Mg Tablet) 5 mg PO Q6H PRN PRN Reason: Pain, Moderate (Pain Scale 4-6 Last Admin: 09/22/22 07:38 Dose: 5 mg Documented By: AHMET Polyethylene Glycol (Polyethylene Glycol 3350 17 Gm Powd.Pack) 17 gm PO DAILY [facility] Last Admin: 09/22/22 07:39 Dose: Not Given Documented By: AHMET Non-Admin Reason: Patient Refused Sertraline HCl (Sertraline Hcl 50 Mg Tablet) 150 mg PO DAILY [facility] Last Admin: 09/22/22 07:38 Dose: 150 mg Documented By: AHMET Sodium Chloride (0.9 % Sodium Chloride Flush 3 Ml Syringe) 3 ml IVFLUSH QSHIFT [facility] Last Admin: 09/22/22 07:39 Dose: 3 ml Documented By: AHMET Trazodone HCl (Trazodone Hcl 100 Mg Tablet) 100 mg PO BEDTIME [facility] Last Admin: 09/21/22 20:09 Dose: 100 mg Documented By: TIFFANY Labs 09/20/22 08:57 09/22/22 05:45 Labs: Laboratory Results - last 24 hr 09/22/22 05:45 Anion Gap 14 Estim Creat Clear Calc 38.2 Estimated GFR 27 Random Glucose 102 Calcium 9.8 D Procedures Date of Service Date of Service: 09/22/22 Progress Note: A&P Assessment and plan (1) Toe necrosis: Status: Acute (2) Frostbite: Status: Acute Plan Pod 2 following left transmetatarsal amputation and right great toe amputation for toe necrosis following frostbite. Patient is recovering well and his wounds are clean and intact. We will continue with local wound care and physical therapy. Plan for short-term rehab upon discharge. Time Spent With Patient Time: Total time managing care of this patient today ____ minutes. Quality Stroke Does the patient have a stroke diagnosis?: No VTE Prior VTE?: No VTE Risk Level:: Medical - moderate - high VTE Device Contraindication: Treatment Not Indicated VTE Drug Contraindication: N/A - Med Ordered
[2022-09-22 11:29] VITALS: BP 118/78; PULSE 100; RESP 20; TEMP 36.4; O2SAT 97
[2022-09-22 12:00] VITALS: O2SAT 97
[2022-09-22] MEDS: HYDROmorphone HCl 0.5 MG/0.5 ML SYRINGE IVPUSH ×2 (12:26→20:30)
[2022-09-22 15:32] VITALS: BP 102/59; PULSE 89; RESP 18; TEMP 37; O2SAT 98
--- NOTE | 2022-09-22 16:15 | HO.PM.IMPN ---
Subjective Subjective Date of Service: 09/22/22 Interval History: seen and examined this morning no overnight events no specific complaints this morning Review of Systems Review of Systems: Yes all other systems are reviewed and are negative Constitutional Constitutional: Denies chills and Denies fever(s) ENT Ears, Nose, Mouth, and Throat: Denies dizziness Cardiovascular Cardiovascular: Denies chest pain, Denies palpitations and Denies dyspnea Respiratory Respiratory: Denies cough and Denies dyspnea Gastrointestinal Gastrointestinal: Denies abdominal pain, Denies nausea and Denies vomiting Neurologic Neurologic: Denies dizziness Endocrine Endocrine: Denies palpitations Physical Exam Vital Signs: Vital Signs: Last Vital Signs Temp 98.6 F 09/22/22 15:32 Pulse 89 09/22/22 15:32 Resp 18 09/22/22 15:32 BP 102/59 L 09/22/22 15:32 Pulse Ox 98 09/22/22 15:32 O2 Del Method Room Air 09/22/22 15:32 O2 Flow Rate 2 09/06/22 11:54 BMI result Body Mass Index 30.4 Const: General: cooperative, comfortable, alert and awake Nutritional Appearance: average body habitus Orientation/consciousness: patient oriented x3 Resp: Effort & Inspection: normal respiratory effort, able to speak in complete sentences, no respiratory distress and no use of accessory muscles Cardio: Rate: regular rate and tachycardic Heart sounds: S1 normal heart sound present and S2 normal heart sound present GI: Inspection: No distended Palpation (GI): Soft to palpation and nontender Neuro: General: patient oriented x3 and CN's II-XI intact bilaterally Extrem: Other: s/p left TMA; s/p right great toe amp; both feet wrapped in dressings General: Yes no pedal edema Objective Data Active Medications Acetaminophen (Acetaminophen 325 Mg Tablet) 650 mg PO Q6H PRN PRN Reason: Pain, Mild (Pain Scale 1-3) Last Admin: 09/22/22 13:38 Dose: 650 mg Documented By: AHMET Bupropion HCl (Bupropion Hcl 100 Mg Tablet) 150 mg PO Q72H [facility] Last Admin: 09/21/22 08:38 Dose: 150 mg Documented By: AHMET Calcium Carbonate (Calcium Carbonate 500 Mg Tablet) 500 mg PO TID [facility] Last Admin: 09/22/22 13:38 Dose: 500 mg Documented By: AHMET Docusate Sodium (Docusate Sodium 100 Mg Capsule) 200 mg PO DAILY [facility] Last Admin: 09/22/22 07:38 Dose: 200 mg Documented By: AHMET Heparin Sodium (Porcine) (Heparin Sodium,Porcine 5,000 Unit/Ml Vial) 5,000 unit SUBCUT BID [facility] Last Admin: 09/22/22 07:39 Dose: 5,000 unit Documented By: AHMET Hydromorphone HCl (Hydromorphone Hcl 0.5 Mg/0.5 Ml Syringe) 0.5 mg IVPUSH Q3H PRN; Protocol PRN Reason: Pain, Severe (Pain Scale 7-10) Last Admin: 09/22/22 12:26 Dose: 0.5 mg Documented By: AHMET Hydroxyzine HCl (Hydroxyzine Hcl 50 Mg Tablet) 50 mg PO BID PRN PRN Reason: Anxiety Last Admin: 09/21/22 20:21 Dose: 50 mg Documented By: TIFFANY Mirtazapine (Mirtazapine 30 Mg Tablet) 30 mg PO BEDTIME [facility] Last Admin: 09/21/22 20:09 Dose: 30 mg Documented By: TIFFANY Olanzapine (Olanzapine 10 Mg Tablet) 20 mg PO BEDTIME [facility] Last Admin: 09/21/22 20:09 Dose: 20 mg Documented By: TIFFANY Ondansetron HCl (Ondansetron Hcl 4 Mg/2 Ml Vial) 4 mg IVPUSH Q8H PRN PRN Reason: Nausea and Vomiting Oxycodone HCl (Oxycodone Hcl Immed Release 5 Mg Tablet) 5 mg PO Q6H PRN PRN Reason: Pain, Moderate (Pain Scale 4-6 Last Admin: 09/22/22 13:38 Dose: 5 mg Documented By: AHMET Polyethylene Glycol (Polyethylene Glycol 3350 17 Gm Powd.Pack) 17 gm PO DAILY [facility] Last Admin: 09/22/22 07:39 Dose: Not Given Documented By: AHMET Non-Admin Reason: Patient Refused Sertraline HCl (Sertraline Hcl 50 Mg Tablet) 150 mg PO DAILY [facility] Last Admin: 09/22/22 07:38 Dose: 150 mg Documented By: AHMET Sodium Chloride (0.9 % Sodium Chloride Flush 3 Ml Syringe) 3 ml IVFLUSH QSHIFT [facility] Last Admin: 09/22/22 15:29 Dose: 3 ml Documented By: AHMET Trazodone HCl (Trazodone Hcl 100 Mg Tablet) 100 mg PO BEDTIME [facility] Last Admin: 09/21/22 20:09 Dose: 100 mg Documented By: TIFFANY Labs 09/20/22 08:57 09/22/22 05:45 Labs: Laboratory Results - last 24 hr 09/22/22 05:45 Anion Gap 14 Estim Creat Clear Calc 38.2 Estimated GFR 27 Random Glucose 102 Calcium 9.8 D Assessment and Plan (1) Frostbite: Status: Acute Plan 52yo homeless M with anxiety + depression, opioid dependence, PTSD presenting with severe BLE weakness after immobility x3d, admitted for OILVIA due to rhabdomyolysis; was down for estimated 2-3d OLIVIA due to rhabdomyolysis (pigment nephrotoxicity), acute . Resolving - s/p dialysis x2 sessions, - temp cath removed 09/19, with adequate urine output - follow bmp - nephrology following # Toe necrosis - Frostbite with gangrenous tissue to both feet - s/p TMA Left foot and great toe right foot 09/20/22 - wound care per surgical team # sinus tachycardia. HR improved. tele reviewed, has had intermittent tachycardia during entire admission likely more persistent r/t pain from surgery # weakness - due to question of flexion myelopathy, - MRI of thoracic spine was done and showed extensive T2 signal change involving the paraspinal musculature possibly sequela of rhabdomyolysis, but no definite thoracic cord signal changes noted - continue physical therapy daily and will require prolonged rehabilitation course # hyperphosphatemia - improved, no indication for binders at this time # hyperK -resolved # toxic-metabolic encephalopathy likely due to cocaine induced encephalopathy - resolved - seen by Neurology; no specific treatment recommended. # polysubstance abuse - Addiction Medicine consulted - declined medication for opioid use disorder # mood disorder - continue bupropion [renally dosed], clonazepam, mirtapazine, olanzapine, sertraline, and trazodone; no behavioral issues noted VTE ppx: UFH dispo: will need prolonged rehab attending - dr. leung In my clinical judgment, the patient requires continued inpatient hospitalization for the following reasons:wound care, pain control, rehab Time Spent With Patient Time: Total time managing care of this patient today ____ minutes. Quality Stroke Does the patient have a stroke diagnosis?: No VTE Prior VTE?: No VTE Risk Level:: Medical - moderate - high VTE Device Contraindication: Treatment Not Indicated VTE Drug Contraindication: N/A - Med Ordered
--- NOTE | 2022-09-22 16:18 | PM.PNNEP ---
Subjective Subjective Date of Service: 09/22/22 Interval history: seen and examined this morning follow up for olivia s/p left transmetatarsal and right great toe amputation yesterday having pain at amputation sites, otherwise feeling ok. resting Physical Exam Vital Signs: Vital Signs: Last Vital Signs Temp 98.6 F 09/22/22 15:32 Pulse 89 09/22/22 15:32 Resp 18 09/22/22 15:32 BP 102/59 L 09/22/22 15:32 Pulse Ox 98 09/22/22 15:32 O2 Del Method Room Air 09/22/22 15:32 O2 Flow Rate 2 09/06/22 11:54 BMI result Body Mass Index 30.4 Objective Data Labs 09/20/22 08:57 09/22/22 05:45 Labs: Laboratory Results - last 24 hr 09/22/22 05:45 Sodium 141 Potassium 3.8 Chloride 104 Carbon Dioxide 27 Anion Gap 14 BUN 21 H Creatinine 2.55 H Estim Creat Clear Calc 38.2 Estimated GFR 27 Random Glucose 102 Calcium 9.8 D Microbiology Microbiology Results: Microbiology 08/30/22 21:00 Blood - Venous Blood Culture - Final No growth after 5 days. 08/30/22 21:00 Blood - Venous Blood Culture - Final No growth after 5 days. Procedures Date of Service Date of Service: 09/22/22 Assessment & Plan Assessment and plan (1) OLIVIA (acute kidney injury): Status: Acute Assessment and Plan: OLIVIA due to ATN from rhabdo and effects of cocaine to reduce renal perfusion; creat improving daily, nonoliguric, vol status okk (2) Frostbite: Status: Acute Assessment and Plan: s/p toe amputations, some pain Plan continue supportive renal care no nephrotoxins including contrast no Nsaids allow ad yevgeniy fluids meds reviewed Time Spent With Patient Time: Total time managing care of this patient today ____ minutes. Progress Note: Quality Stroke Does the patient have a stroke diagnosis?: No
[2022-09-22 19:32] VITALS: BP 110/55; PULSE 105; RESP 18; TEMP 37; O2SAT 98
[2022-09-22] MEDS: OLANZapine 10 MG TABLET 20 MG PO (20:25)
[2022-09-22] MEDS: Mirtazapine 30 MG TABLET PO (20:26)
[2022-09-22] MEDS: traZODone HCL 100 MG TABLET PO (20:26)
[2022-09-23] VITALS: BP 112/66; PULSE 102; RESP 20; TEMP 36.7; O2SAT 95
[2022-09-23] MEDS: oxyCODONE HCl Immed Release 5 MG TABLET PO ×2 (00:01→17:25)
[2022-09-23] MEDS: Acetaminophen 325 MG TABLET 650 MG PO (00:02)
[2022-09-23 03:32] VITALS: BP 111/60; PULSE 97; RESP 20; TEMP 36.1; O2SAT 97
[2022-09-23 05:40] VITALS: BMI 30.2
[2022-09-23 06:37] LABS: Hematocrit 27.3 % (42.0-52.0); Hemoglobin 8.8 g/dl (14.0-18.0); Mean Corpuscular HGB Conc 32.2 g/dl (31.0-36.0); Mean Corpuscular Hemoglobin 28.4 pg (27.0-33.0); Mean Corpuscular Volume 88.1 fL (80.0-98.0); Mean Platelet Volume 9.1 fL (9.4-12.4); Platelet Count 433 X10*3/uL (160-400); Red Cell Distribution Width 14.6 % (11.0-16.0); White Blood Count 10.5 X10*3/uL (4.8-10.8)
[2022-09-23 06:55] LABS: Anion Gap 12 (12-20); Blood Urea Nitrogen 27 mg/dL (9-16); Calcium 9.7 mg/dL (8.4-10.2); Carbon Dioxide 29 mmol/L (22-29); Chloride 104 mmol/L (96-108); Creatinine Clr Calc Pharmacy 40.1; Estimated Glomerular Filt Rate 28; Glucose Random 112 mg/dL (60-115); Potassium 4.1 mmol/L (3.3-5.1); Sodium 141 mmol/L (135-145)
[2022-09-23] MEDS: HYDROmorphone HCl 0.5 MG/0.5 ML SYRINGE IVPUSH ×5 (07:21→21:43)
[2022-09-23] MEDS: 0.9 % Sodium Chloride Flush 3 ML SYRINGE IVFLUSH ×3 (07:22→21:44)
[2022-09-23 07:43] VITALS: BP 116/73; PULSE 88; RESP 20; TEMP 36.8; O2SAT 96
[2022-09-23] MEDS: Sertraline HCL 50 MG TABLET 150 MG PO (08:26)
[2022-09-23] MEDS: Docusate Sodium 100 MG CAPSULE 200 MG PO (08:27)
[2022-09-23] MEDS: Heparin Sodium,Porcine 5,000 UNIT/ML VIAL 5000 UNIT SUBCUT ×2 (08:27→21:43)
--- NOTE | 2022-09-23 08:39 | MHC.CM.PN ---
PT IS MEDICALLY READY TO DC [facility] AND [facility] ARE FOLLOWING UPDATES SENT AND SNFS INFORMED OF PTS READINESS TO DC AWAITING RESPONSES
[2022-09-23 11:27] VITALS: BP 127/83; PULSE 115; RESP 18; TEMP 36.7; O2SAT 98
--- NOTE | 2022-09-23 12:03 | P.PNIM_ITS ---
Subjective Subjective Date of Service: 09/23/22 Interval History: seen and examined this morning no overnight events no specific complaints this morning Review of Systems Review of Systems: Yes all other systems are reviewed and are negative Constitutional Constitutional: Denies chills and Denies fever(s) ENT Ears, Nose, Mouth, and Throat: Denies dizziness Cardiovascular Cardiovascular: Denies chest pain, Denies palpitations and Denies dyspnea Respiratory Respiratory: Denies cough and Denies dyspnea Gastrointestinal Gastrointestinal: Denies abdominal pain, Denies nausea and Denies vomiting Neurologic Neurologic: Denies dizziness Endocrine Endocrine: Denies palpitations Physical Exam Vital Signs: Vital Signs: Last Vital Signs Temp 98.1 F 09/23/22 11:27 Pulse 115 H 09/23/22 11:27 Resp 18 09/23/22 11:27 BP 127/83 09/23/22 11:27 Pulse Ox 98 09/23/22 11:27 O2 Del Method Room Air 09/23/22 11:27 O2 Flow Rate 2 09/06/22 11:54 BMI result Body Mass Index 30.2 Appearing in no acute distress lung sounds are clear to auscultation heart regular rate rhythm, clear S1, S2 positive bowel sounds, abdomen is soft, nontender neuro patient is alert x3, no focal deficits Objective Data Active Medications Acetaminophen (Acetaminophen 325 Mg Tablet) 650 mg PO Q6H PRN PRN Reason: Pain, Mild (Pain Scale 1-3) Last Admin: 09/23/22 00:02 Dose: 650 mg Documented By: GILBERT Bupropion HCl (Bupropion Hcl 100 Mg Tablet) 150 mg PO Q72H [facility] Last Admin: 09/21/22 08:38 Dose: 150 mg Documented By: AHMET Calcium Carbonate (Calcium Carbonate 500 Mg Tablet) 500 mg PO TID [facility] Last Admin: 09/23/22 08:27 Dose: 500 mg Documented By: LUIS Docusate Sodium (Docusate Sodium 100 Mg Capsule) 200 mg PO DAILY [facility] Last Admin: 09/23/22 08:27 Dose: 200 mg Documented By: LUIS Heparin Sodium (Porcine) (Heparin Sodium,Porcine 5,000 Unit/Ml Vial) 5,000 unit SUBCUT BID [facility] Last Admin: 09/23/22 08:27 Dose: 5,000 unit Documented By: LUIS Hydromorphone HCl (Hydromorphone Hcl 0.5 Mg/0.5 Ml Syringe) 0.5 mg IVPUSH Q3H PRN; Protocol PRN Reason: Pain, Severe (Pain Scale 7-10) Last Admin: 09/23/22 11:15 Dose: 0.5 mg Documented By: LUIS Hydroxyzine HCl (Hydroxyzine Hcl 50 Mg Tablet) 50 mg PO BID PRN PRN Reason: Anxiety Last Admin: 09/21/22 20:21 Dose: 50 mg Documented By: TIFFANY Mirtazapine (Mirtazapine 30 Mg Tablet) 30 mg PO BEDTIME [facility] Last Admin: 09/22/22 20:26 Dose: 30 mg Documented By: GILBERT Olanzapine (Olanzapine 10 Mg Tablet) 20 mg PO BEDTIME [facility] Last Admin: 09/22/22 20:25 Dose: 20 mg Documented By: GILBERT Ondansetron HCl (Ondansetron Hcl 4 Mg/2 Ml Vial) 4 mg IVPUSH Q8H PRN PRN Reason: Nausea and Vomiting Oxycodone HCl (Oxycodone Hcl Immed Release 5 Mg Tablet) 5 mg PO Q6H PRN PRN Reason: Pain, Moderate (Pain Scale 4-6 Last Admin: 09/23/22 00:01 Dose: 5 mg Documented By: GILBERT Polyethylene Glycol (Polyethylene Glycol 3350 17 Gm Powd.Pack) 17 gm PO DAILY [facility] Last Admin: 09/23/22 08:28 Dose: Not Given Documented By: LUIS Non-Admin Reason: Patient Refused Sertraline HCl (Sertraline Hcl 50 Mg Tablet) 150 mg PO DAILY [facility] Last Admin: 09/23/22 08:26 Dose: 150 mg Documented By: LUIS Sodium Chloride (0.9 % Sodium Chloride Flush 3 Ml Syringe) 3 ml IVFLUSH QSHIFT [facility] Last Admin: 09/23/22 07:22 Dose: 3 ml Documented By: LUIS Trazodone HCl (Trazodone Hcl 100 Mg Tablet) 100 mg PO BEDTIME [facility] Last Admin: 09/22/22 20:26 Dose: 100 mg Documented By: GILBERT Labs 09/23/22 06:22 09/23/22 06:22 Labs: Laboratory Results - last 24 hr 09/23/22 09/23/22 06:22 06:22 MCV 88.1 MCH 28.4 MCHC 32.2 RDW 14.6 Plt Count 433 H MPV 9.1 L Absolute Nucleated RBC 0.000 Nucleated RBC % (auto) 0.0 Anion Gap 12 Estim Creat Clear Calc 40.1 Estimated GFR 28 Random Glucose 112 Calcium 9.7 Assessment and Plan (1) Frostbite: Status: Acute Plan 52yo homeless M with anxiety + depression, opioid dependence, PTSD presenting with severe BLE weakness after immobility x3d, admitted for OLIVIA due to rhabdomyolysis; was down for estimated 2-3d OLIVIA due to rhabdomyolysis (pigment nephrotoxicity), acute . Resolving s/p dialysis x2 sessions, temp cath removed 09/19, with adequate urine output follow bmp nephrology following Toe necrosis Frostbite with gangrenous tissue to both feet s/p TMA Left foot and great toe right foot 09/20/22 wound care per surgical team sinus tachycardia. HR improved. tele reviewed, has had intermittent tachycardia during entire admission likely more persistent r/t pain from surgery weakness due to question of flexion myelopathy, MRI of thoracic spine was done and showed extensive T2 signal change involving the paraspinal musculature possibly sequela of rhabdomyolysis, but no definite thoracic cord signal changes noted continue physical therapy daily and will require prolonged rehabilitation course hyperphosphatemia improved, no indication for binders at this time hyperK resolved toxic-metabolic encephalopathy likely due to cocaine induced encephalopathy resolved seen by Neurology; no specific treatment recommended. polysubstance abuse crack cocaine Addiction Medicine consulted declined medication for opioid use disorder mood disorder continue bupropion [renally dosed], clonazepam, mirtapazine, olanzapine, sertraline, and trazodone; no behavioral issues noted VTE ppx: UFH dispo: will need prolonged rehab attending - dr. Perrin In my clinical judgment, the patient requires continued inpatient hospitalization for the following reasons:wound care, pain control, rehab Time Spent With Patient Time: Total time managing care of this patient today ____ minutes. Quality Stroke Does the patient have a stroke diagnosis?: No VTE Prior VTE?: No VTE Risk Level:: Medical - moderate - high VTE Device Contraindication: Treatment Not Indicated VTE Drug Contraindication: N/A - Med Ordered
--- NOTE | 2022-09-23 12:21 | P.PNGS_ITS ---
Subjective Subjective Date of Service: 09/23/22 Patient reports: still having pain Interval history: The patient is seen in coverage He continues to endorse bilateral lower extremity pain, specifically in his feet but denies any chest pain, difficulty breathing or shortness of breath. He has no localizing neurologic complaints. Physical Exam Vital Signs: Vital Signs: Last Vital Signs Temp 98.1 F 09/23/22 11:27 Pulse 115 H 09/23/22 11:27 Resp 18 09/23/22 11:27 BP 127/83 09/23/22 11:27 Pulse Ox 98 09/23/22 11:27 O2 Del Method Room Air 09/23/22 11:27 O2 Flow Rate 2 09/06/22 11:54 BMI result Body Mass Index 30.2 The patient is nontoxic and in good spirits He is in no acute respiratory distress He is anicteric Bilateral lower extremity dressings are clean, dry and intact Objective Data Active Medications Acetaminophen (Acetaminophen 325 Mg Tablet) 650 mg PO Q6H PRN PRN Reason: Pain, Mild (Pain Scale 1-3) Last Admin: 09/23/22 00:02 Dose: 650 mg Documented By: GILBERT Bupropion HCl (Bupropion Hcl 100 Mg Tablet) 150 mg PO Q72H [facility] Last Admin: 09/21/22 08:38 Dose: 150 mg Documented By: AHMET Calcium Carbonate (Calcium Carbonate 500 Mg Tablet) 500 mg PO TID [facility] Last Admin: 09/23/22 08:27 Dose: 500 mg Documented By: LUIS Docusate Sodium (Docusate Sodium 100 Mg Capsule) 200 mg PO DAILY [facility] Last Admin: 09/23/22 08:27 Dose: 200 mg Documented By: LUIS Heparin Sodium (Porcine) (Heparin Sodium,Porcine 5,000 Unit/Ml Vial) 5,000 unit SUBCUT BID [facility] Last Admin: 09/23/22 08:27 Dose: 5,000 unit Documented By: LUIS Hydromorphone HCl (Hydromorphone Hcl 0.5 Mg/0.5 Ml Syringe) 0.5 mg IVPUSH Q3H PRN; Protocol PRN Reason: Pain, Severe (Pain Scale 7-10) Last Admin: 09/23/22 11:15 Dose: 0.5 mg Documented By: LUIS Hydroxyzine HCl (Hydroxyzine Hcl 50 Mg Tablet) 50 mg PO BID PRN PRN Reason: Anxiety Last Admin: 09/21/22 20:21 Dose: 50 mg Documented By: TIFFANY Mirtazapine (Mirtazapine 30 Mg Tablet) 30 mg PO BEDTIME [facility] Last Admin: 09/22/22 20:26 Dose: 30 mg Documented By: GILBERT Olanzapine (Olanzapine 10 Mg Tablet) 20 mg PO BEDTIME [facility] Last Admin: 09/22/22 20:25 Dose: 20 mg Documented By: GILBERT Ondansetron HCl (Ondansetron Hcl 4 Mg/2 Ml Vial) 4 mg IVPUSH Q8H PRN PRN Reason: Nausea and Vomiting Oxycodone HCl (Oxycodone Hcl Immed Release 5 Mg Tablet) 5 mg PO Q6H PRN PRN Reason: Pain, Moderate (Pain Scale 4-6 Last Admin: 09/23/22 00:01 Dose: 5 mg Documented By: GILBERT Polyethylene Glycol (Polyethylene Glycol 3350 17 Gm Powd.Pack) 17 gm PO DAILY [facility] Last Admin: 09/23/22 08:28 Dose: Not Given Documented By: LUIS Non-Admin Reason: Patient Refused Sertraline HCl (Sertraline Hcl 50 Mg Tablet) 150 mg PO DAILY [facility] Last Admin: 09/23/22 08:26 Dose: 150 mg Documented By: LUIS Sodium Chloride (0.9 % Sodium Chloride Flush 3 Ml Syringe) 3 ml IVFLUSH QSHIFT [facility] Last Admin: 09/23/22 07:22 Dose: 3 ml Documented By: LUIS Trazodone HCl (Trazodone Hcl 100 Mg Tablet) 100 mg PO BEDTIME [facility] Last Admin: 09/22/22 20:26 Dose: 100 mg Documented By: GILBERT Labs 09/23/22 06:22 09/23/22 06:22 Labs: Laboratory Results - last 24 hr 09/23/22 09/23/22 06:22 06:22 MCV 88.1 MCH 28.4 MCHC 32.2 RDW 14.6 Plt Count 433 H MPV 9.1 L Absolute Nucleated RBC 0.000 Nucleated RBC % (auto) 0.0 Anion Gap 12 Estim Creat Clear Calc 40.1 Estimated GFR 28 Random Glucose 112 Calcium 9.7 Procedures Date of Service Date of Service: 09/23/22 Progress Note: A&P Assessment and plan (1) Toe necrosis: Status: Acute (2) Frostbite: Status: Acute (3) Rhabdomyolysis: Status: Acute (4) OLIVIA (acute kidney injury): Status: Acute (5) Chronic post-traumatic stress disorder (PTSD): Status: Chronic (6) Mood disorder: Status: Acute Plan Start dressing changes on September 24. See orders Continue present management Encourage ambulation with walker Time Spent With Patient Time: Total time managing care of this patient today ____ minutes. Quality Stroke Does the patient have a stroke diagnosis?: No VTE Prior VTE?: No VTE Risk Level:: Medical - moderate - high VTE Device Contraindication: Treatment Not Indicated VTE Drug Contraindication: N/A - Med Ordered
[2022-09-23 16:00] VITALS: BP 162/80; PULSE 95; RESP 15; TEMP 36.2; O2SAT 97
--- NOTE | 2022-09-23 16:23 | PC.NURSE ---
daily dressing change done at 1400. right great toe - minimal drainage. left TMA - sanguineous drainage. stitches on both sites asymptomatic and no evidence of infection, puss or dehiscence. pt tolerated dressing change well. Xeroform, sterile 4 x 4, gauze, renato bandage.
[2022-09-23 19:00] VITALS: BP 114/65; PULSE 92; RESP 14; TEMP 36.5; O2SAT 95
[2022-09-23] MEDS: traZODone HCL 100 MG TABLET PO (21:43)
[2022-09-23] MEDS: Mirtazapine 30 MG TABLET PO (21:43)
[2022-09-23] MEDS: OLANZapine 10 MG TABLET 20 MG PO (21:43)
[2022-09-24] VITALS (7 sets, daily range): BP systolic 109–123; BP diastolic 65–72; PULSE 97–103; RESP 14–20; TEMP 36.3–37; O2SAT 95–98; BMI 30.4
--- NOTE | 2022-09-24 08:20 | P.PNGS_ITS ---
Subjective Subjective Date of Service: 09/24/22 Patient reports: no new complaints, feels better, pain is less and tolerating a regular diet Interval history: The patient was seen this morning in coverage for Dr. Greer Patient was eating breakfast and reports that his pain is better managed. He reports that he is doing better and has no other complaints such as chest pain, difficulty breathing or shortness of breath Nursing changed his dressings yesterday and showed me pictures of some cellulitic change and drainage. Will add IV antibiotics. Physical Exam Vital Signs: Vital Signs: Last Vital Signs Temp 97.9 F 09/24/22 07:14 Pulse 98 09/24/22 07:14 Resp 18 09/24/22 07:14 BP 123/67 09/24/22 07:14 Pulse Ox 97 09/24/22 07:14 O2 Del Method Room Air 09/24/22 07:14 O2 Flow Rate 2 09/06/22 11:54 BMI result Body Mass Index 30.4 Dressings are clean, dry and intact. Patient is eating, so dressings were not taken down. Objective Data Active Medications Acetaminophen (Acetaminophen 325 Mg Tablet) 650 mg PO Q6H PRN PRN Reason: Pain, Mild (Pain Scale 1-3) Last Admin: 09/23/22 00:02 Dose: 650 mg Documented By: GILBERT Bupropion HCl (Bupropion Hcl 100 Mg Tablet) 150 mg PO Q72H [facility] Last Admin: 09/21/22 08:38 Dose: 150 mg Documented By: RIOKURT Calcium Carbonate (Calcium Carbonate 500 Mg Tablet) 500 mg PO TID [facility] Last Admin: 09/23/22 21:43 Dose: 500 mg Documented By: ELIZABETH Docusate Sodium (Docusate Sodium 100 Mg Capsule) 200 mg PO DAILY [facility] Last Admin: 09/23/22 08:27 Dose: 200 mg Documented By: LUIS Heparin Sodium (Porcine) (Heparin Sodium,Porcine 5,000 Unit/Ml Vial) 5,000 unit SUBCUT BID [facility] Last Admin: 09/23/22 21:43 Dose: 5,000 unit Documented By: ELIZABETH Hydromorphone HCl (Hydromorphone Hcl 0.5 Mg/0.5 Ml Syringe) 0.5 mg IVPUSH Q3H PRN; Protocol PRN Reason: Pain, Severe (Pain Scale 7-10) Last Admin: 09/23/22 21:43 Dose: 0.5 mg Documented By: ELIZABETH Hydroxyzine HCl (Hydroxyzine Hcl 50 Mg Tablet) 50 mg PO BID PRN PRN Reason: Anxiety Last Admin: 09/21/22 20:21 Dose: 50 mg Documented By: TIFFANY Mirtazapine (Mirtazapine 30 Mg Tablet) 30 mg PO BEDTIME [facility] Last Admin: 09/23/22 21:43 Dose: 30 mg Documented By: ELIZABETH Olanzapine (Olanzapine 10 Mg Tablet) 20 mg PO BEDTIME [facility] Last Admin: 09/23/22 21:43 Dose: 20 mg Documented By: ELIZABETH Ondansetron HCl (Ondansetron Hcl 4 Mg/2 Ml Vial) 4 mg IVPUSH Q8H PRN PRN Reason: Nausea and Vomiting Oxycodone HCl (Oxycodone Hcl Immed Release 5 Mg Tablet) 5 mg PO Q6H PRN PRN Reason: Pain, Moderate (Pain Scale 4-6 Last Admin: 09/23/22 17:25 Dose: 5 mg Documented By: LUIS Polyethylene Glycol (Polyethylene Glycol 3350 17 Gm Powd.Pack) 17 gm PO DAILY [facility] Last Admin: 09/23/22 08:28 Dose: Not Given Documented By: LUIS Non-Admin Reason: Patient Refused Sertraline HCl (Sertraline Hcl 50 Mg Tablet) 150 mg PO DAILY [facility] Last Admin: 09/23/22 08:26 Dose: 150 mg Documented By: LUIS Sodium Chloride (0.9 % Sodium Chloride Flush 3 Ml Syringe) 3 ml IVFLUSH [facility] Last Admin: 09/23/22 21:44 Dose: 3 ml Documented By: ELIZABETH Trazodone HCl (Trazodone Hcl 100 Mg Tablet) 100 mg PO BEDTIME [facility] Last Admin: 09/23/22 21:43 Dose: 100 mg Documented By: ELIZABETH Labs 09/23/22 06:22 09/23/22 06:22 Procedures Date of Service Date of Service: 09/24/22 Progress Note: A&P Assessment and plan (1) Toe necrosis: Status: Acute (2) Frostbite: Status: Acute (3) OLIVIA (acute kidney injury): Status: Acute (4) Chronic post-traumatic stress disorder (PTSD): Status: Chronic (5) Mood disorder: Status: Acute Plan Continue wound care with daily dressing changes Will add IV Zosyn given the cellulitic change and apparent cellulitis. Time Spent With Patient Time: Total time managing care of this patient today ____ minutes. Quality Stroke Does the patient have a stroke diagnosis?: No VTE Prior VTE?: No VTE Risk Level:: Medical - moderate - high VTE Device Contraindication: Treatment Not Indicated VTE Drug Contraindication: N/A - Med Ordered
--- NOTE | 2022-09-24 08:31 | PM.EVENT ---
Event Note Date of Service: 09/24/22 Event Note: RN notified provider that patient had fallen out of bed. He was trying to cut the dressing off of his foot and fell onto his knees. He denied hitting his head or any injury. No loss of consciousness. Patient has been consistently alert oriented and ambulatory since admission. Will check neuros Q1 hour x2 then scheduled. vital signs>BP 123/79, HR 141, O2 97%. Time Spent With Patient Time: Total time managing care of this patient today ____ minutes.
--- NOTE | 2022-09-24 08:33 | P.PNIM_ITS ---
Subjective Subjective Date of Service: 09/24/22 Interval History: seen and examined this morning no overnight events Had a fall out of bed this morning, trying to cut his foot bandage Review of Systems Review of Systems: Yes all other systems are reviewed and are negative Constitutional Constitutional: Denies chills and Denies fever(s) ENT Ears, Nose, Mouth, and Throat: Denies dizziness Cardiovascular Cardiovascular: Denies chest pain, Denies palpitations and Denies dyspnea Respiratory Respiratory: Denies cough and Denies dyspnea Gastrointestinal Gastrointestinal: Denies abdominal pain, Denies nausea and Denies vomiting Neurologic Neurologic: Denies dizziness Endocrine Endocrine: Denies palpitations Physical Exam Vital Signs: Vital Signs: Last Vital Signs Temp 97.9 F 09/24/22 07:14 Pulse 98 09/24/22 07:14 Resp 18 09/24/22 07:14 BP 123/67 09/24/22 07:14 Pulse Ox 97 09/24/22 07:14 O2 Del Method Room Air 09/24/22 07:14 O2 Flow Rate 2 09/06/22 11:54 BMI result Body Mass Index 30.4 Appearing in no acute distress lung sounds are clear to auscultation heart regular rate rhythm, clear S1, S2 positive bowel sounds, abdomen is soft, nontender neuro patient is alert x3, no focal deficits right foot Left foot Objective Data Active Medications Acetaminophen (Acetaminophen 325 Mg Tablet) 650 mg PO Q6H PRN PRN Reason: Pain, Mild (Pain Scale 1-3) Last Admin: 09/23/22 00:02 Dose: 650 mg Documented By: GILBERT Bupropion HCl (Bupropion Hcl 100 Mg Tablet) 150 mg PO Q72H [facility] Last Admin: 09/21/22 08:38 Dose: 150 mg Documented By: AHMET Calcium Carbonate (Calcium Carbonate 500 Mg Tablet) 500 mg PO TID [facility] Last Admin: 09/23/22 21:43 Dose: 500 mg Documented By: ELIZABETH Docusate Sodium (Docusate Sodium 100 Mg Capsule) 200 mg PO DAILY [facility] Last Admin: 09/23/22 08:27 Dose: 200 mg Documented By: LUIS Heparin Sodium (Porcine) (Heparin Sodium,Porcine 5,000 Unit/Ml Vial) 5,000 unit SUBCUT BID [facility] Last Admin: 09/23/22 21:43 Dose: 5,000 unit Documented By: ELIZABETH Hydromorphone HCl (Hydromorphone Hcl 0.5 Mg/0.5 Ml Syringe) 0.5 mg IVPUSH Q3H PRN; Protocol PRN Reason: Pain, Severe (Pain Scale 7-10) Last Admin: 09/23/22 21:43 Dose: 0.5 mg Documented By: ELIZABETH Hydroxyzine HCl (Hydroxyzine Hcl 50 Mg Tablet) 50 mg PO BID PRN PRN Reason: Anxiety Last Admin: 09/21/22 20:21 Dose: 50 mg Documented By: TIFFANY Mirtazapine (Mirtazapine 30 Mg Tablet) 30 mg PO BEDTIME [facility] Last Admin: 09/23/22 21:43 Dose: 30 mg Documented By: ELIZABETH Olanzapine (Olanzapine 10 Mg Tablet) 20 mg PO BEDTIME [facility] Last Admin: 09/23/22 21:43 Dose: 20 mg Documented By: ELIZABETH Ondansetron HCl (Ondansetron Hcl 4 Mg/2 Ml Vial) 4 mg IVPUSH Q8H PRN PRN Reason: Nausea and Vomiting Oxycodone HCl (Oxycodone Hcl Immed Release 5 Mg Tablet) 5 mg PO Q6H PRN PRN Reason: Pain, Moderate (Pain Scale 4-6 Last Admin: 09/23/22 17:25 Dose: 5 mg Documented By: LUIS Polyethylene Glycol (Polyethylene Glycol 3350 17 Gm Powd.Pack) 17 gm PO DAILY [facility] Last Admin: 09/23/22 08:28 Dose: Not Given Documented By: LUIS Non-Admin Reason: Patient Refused Sertraline HCl (Sertraline Hcl 50 Mg Tablet) 150 mg PO DAILY [facility] Last Admin: 09/23/22 08:26 Dose: 150 mg Documented By: LUIS Sodium Chloride (0.9 % Sodium Chloride Flush 3 Ml Syringe) 3 ml IVFLUSH [facility] Last Admin: 09/23/22 21:44 Dose: 3 ml Documented By: ELIZABETH Trazodone HCl (Trazodone Hcl 100 Mg Tablet) 100 mg PO BEDTIME [facility] Last Admin: 09/23/22 21:43 Dose: 100 mg Documented By: ELIZABETH Labs 09/23/22 06:22 09/23/22 06:22 Assessment and Plan (1) Frostbite: Status: Acute Plan 52yo homeless M with anxiety + depression, opioid dependence, PTSD presenting with severe BLE weakness after immobility x3d, admitted for OLIVIA due to rhabdomyolysis; was down for estimated 2-3d Fall no injury to head, no LOC, fell to knees trying to adjust bandage neuro checks Q1Hx2 then Q shift patient AOx3 since admission OLIVIA due to rhabdomyolysis (pigment nephrotoxicity), acute . Resolving s/p dialysis x2 sessions, temp cath removed 09/19, with adequate urine output follow bmp nephrology following Toe necrosis Frostbite with gangrenous tissue to both feet s/p TMA Left foot and great toe right foot 09/20/22 wound care per surgical team sinus tachycardia. HR improved. tele reviewed, has had intermittent tachycardia during entire admission likely more persistent r/t pain from surgery weakness due to question of flexion myelopathy, MRI of thoracic spine was done and showed extensive T2 signal change involving the paraspinal musculature possibly sequela of rhabdomyolysis, but no definite thoracic cord signal changes noted continue physical therapy daily and will require prolonged rehabilitation course hyperphosphatemia improved, no indication for binders at this time hyperK resolved toxic-metabolic encephalopathy likely due to cocaine induced encephalopathy resolved seen by Neurology; no specific treatment recommended. polysubstance abuse crack cocaine Addiction Medicine consulted declined medication for opioid use disorder mood disorder continue bupropion [renally dosed], clonazepam, mirtapazine, olanzapine, sertraline, and trazodone; no behavioral issues noted VTE ppx: [facility] dispo: Plan for rehab attending - dr. Perrin In my clinical judgment, the patient requires continued inpatient hospitalization for the following reasons:wound care, pain control, rehab Time Spent With Patient Time: Total time managing care of this patient today ____ minutes. Quality Stroke Does the patient have a stroke diagnosis?: No VTE Prior VTE?: No VTE Risk Level:: Medical - moderate - high VTE Device Contraindication: Treatment Not Indicated VTE Drug Contraindication: N/A - Med Ordered
[2022-09-24] MEDS: buPROPion HCL 100 MG TABLET 150 MG PO (08:43)
[2022-09-24] MEDS: Heparin Sodium,Porcine 5,000 UNIT/ML VIAL 5000 UNIT SUBCUT ×2 (08:43→19:40)
[2022-09-24] MEDS: Sertraline HCL 50 MG TABLET 150 MG PO (08:44)
[2022-09-24] MEDS: 0.9 % Sodium Chloride Flush 3 ML SYRINGE IVFLUSH ×3 (08:44→22:01)
[2022-09-24] MEDS: HYDROmorphone HCl 0.5 MG/0.5 ML SYRINGE IVPUSH ×5 (08:44→21:59)
[2022-09-24] MEDS: Docusate Sodium 100 MG CAPSULE 200 MG PO (08:44)
[2022-09-24] MEDS: Piperacillin Sodium/Tazobactam 3.375 GM in 0.9 % Sodium Chloride 50 ML IV ×3 (11:16→22:01)
--- NOTE | 2022-09-24 15:17 | P.PNNP_ITS ---
Subjective Subjective Date of Service: 09/24/22 Interval history: seen and examined no overnight events Fell oob Physical Exam Vital Signs: Vital Signs: Last Vital Signs Temp 98.0 F 09/24/22 15:00 Pulse 98 09/24/22 15:00 Resp 15 09/24/22 15:00 BP 121/65 09/24/22 15:00 Pulse Ox 97 09/24/22 15:00 O2 Del Method Room Air 09/24/22 15:00 O2 Flow Rate 2 09/06/22 11:54 BMI result Body Mass Index 30.4 Const: Other: patient alert oriented x3 General: cooperative, comfortable, no acute distress, alert and awake Nutritional Appearance: average body habitus and well nourished Limitations: no limitations HEENT: Head: Yes normocephalic and Yes atraumatic Ears: hearing grossly normal bilaterally Eyes: General: appearance normal, both eyes and all related structures EOM: EOMs intact bilaterally Neck: Neck: Yes supple Resp: Other: Breathing comfortably on room air, no respiratory distress Effort & Inspection: normal respiratory effort, able to speak in complete sent ences, no audible wheezes, no cough, no respiratory distress and no use of accessory muscles Auscultation: clear to auscultation bilaterally and diminished lung sounds Cardio: Other: rate and rhythm controlled Jugular venous distension: no JVD Rate: regular rate and tachycardic Rhythm: regular rhythm Heart sounds: S1 normal heart sound present and S2 normal heart sound present GI: Other: abdomen is soft nontender, Inspection: Yes normal to inspection and No distended Palpation (GI): Soft to palpation and nontender Auscultation: normal bowel sounds Objective Data Labs 09/23/22 06:22 09/23/22 06:22 Microbiology Microbiology Results: Microbiology 08/30/22 21:00 Blood - Venous Blood Culture - Final No growth after 5 days. 08/30/22 21:00 Blood - Venous Blood Culture - Final No growth after 5 days. Procedures Date of Service Date of Service: 09/24/22 Assessment & Plan Assessment and plan (1) OLIVIA (acute kidney injury): Status: Acute (2) Metabolic acidosis: Status: Acute (3) Toe necrosis: Status: Acute Plan 1) OLIVIA (acute kidney injury): ?Status:?Acute ?Assessment and Plan: OLIVIA due to ATN from rhabdo and effects of cocaine to reduce renal perfusion; creat improving daily, nonoliguric, vol status ok-has edema. Acidosis resolved. (2) Frostbite: ?Status:?Acute ?Assessment and Plan: s/p toe amputations, some pain Plan continue supportive renal care no nephrotoxins including contrast no Nsaids allow ad yevgeniy fluids meds reviewed Time Spent With Patient Time: Total time managing care of this patient today ____ minutes. Progress Note: Quality Stroke Does the patient have a stroke diagnosis?: No
--- NOTE | 2022-09-24 15:44 | PC.NURSE ---
dressing change to bilateral foot done at ~1500. pt tolerated well. minimal drainage from right great toe amputation site. left TMA site - asymptomatic, some sanguineous drainage. pt tolerated dressing change well.
--- NOTE | 2022-09-24 19:35 | PC.NURSE ---
incident occurred around 08:30. this nurse was right by RNs station right outside of pt's room when a thud noise was heard. this nurse immediately went into room - found pt on knees, next to bed. when asked what happen pt stated I was trying to get the dressing off and I fell . pt denies striking head, denies pain. pt A&O vitals stable ; BP 123/79 HR141 O2 97% RA. provider Patricia davenport notified, neuro checks q1hr ordered x 2 then qshift. nurse supervisor [employer] notified. this nurse reeducated about high fall risk safety measures pt agrees to camera in room, bed alarm and will ring for future assistance. prior to incident pt was educated about high fall risk safety measure but refused due to wanting independence and privacy with using urinal at bedside while sitting on edge of bed.
[2022-09-24] MEDS: oxyCODONE HCl Immed Release 5 MG TABLET PO (19:36)
[2022-09-24] MEDS: OLANZapine 10 MG TABLET 20 MG PO (19:38)
[2022-09-24] MEDS: Mirtazapine 30 MG TABLET PO (19:39)
[2022-09-24] MEDS: traZODone HCL 100 MG TABLET PO (19:39)
[2022-09-24] MEDS: hydrOXYzine HCL 50 MG TABLET PO (19:40)
[2022-09-25 04:00] VITALS: BP 105/54; PULSE 108; RESP 14; TEMP 36.6; O2SAT 97
[2022-09-25] MEDS: HYDROmorphone HCl 0.5 MG/0.5 ML SYRINGE IVPUSH ×5 (04:28→20:43)
[2022-09-25] MEDS: Piperacillin Sodium/Tazobactam 3.375 GM in 0.9 % Sodium Chloride 50 ML IV ×3 (04:58→20:41)
[2022-09-25 07:17] LABS: Anion Gap 12 (12-20); Blood Urea Nitrogen 26 mg/dL (9-16); Calcium 9.6 mg/dL (8.4-10.2); Carbon Dioxide 27 mmol/L (22-29); Chloride 104 mmol/L (96-108); Creatinine Clr Calc Pharmacy 42.9; Estimated Glomerular Filt Rate 30; Glucose Random 100 mg/dL (60-115); Potassium 4.2 mmol/L (3.3-5.1); Sodium 139 mmol/L (135-145)
--- NOTE | 2022-09-25 07:34 | P.PNGS_ITS ---
Subjective Subjective Date of Service: 09/25/22 Interval history: Aside from bilateral incisional discomfort, patient has no other issues. Physical Exam Vital Signs: Vital Signs: Last Vital Signs Temp 97.9 F 09/25/22 04:00 Pulse 108 H 09/25/22 04:00 Resp 14 09/25/22 04:00 BP 105/54 L 09/25/22 04:00 Pulse Ox 97 09/25/22 04:00 O2 Del Method Room Air 09/25/22 04:00 O2 Flow Rate 2 09/06/22 11:54 BMI result Body Mass Index 30.4 Extrem: Other: Bilateral lower extremity dressings clean dry and intact. Objective Data Active Medications Acetaminophen (Acetaminophen 325 Mg Tablet) 650 mg PO Q6H PRN PRN Reason: Pain, Mild (Pain Scale 1-3) Last Admin: 09/23/22 00:02 Dose: 650 mg Documented By: GILBERT Bupropion HCl (Bupropion Hcl 100 Mg Tablet) 150 mg PO Q72H [facility] Last Admin: 09/24/22 08:43 Dose: 150 mg Documented By: LUIS Calcium Carbonate (Calcium Carbonate 500 Mg Tablet) 500 mg PO TID [facility] Last Admin: 09/24/22 19:39 Dose: 500 mg Documented By: TAN Docusate Sodium (Docusate Sodium 100 Mg Capsule) 200 mg PO DAILY [facility] Last Admin: 09/24/22 08:44 Dose: 200 mg Documented By: LUIS Heparin Sodium (Porcine) (Heparin Sodium,Porcine 5,000 Unit/Ml Vial) 5,000 unit SUBCUT BID [facility] Last Admin: 09/24/22 19:40 Dose: 5,000 unit Documented By: TAN Hydromorphone HCl (Hydromorphone Hcl 0.5 Mg/0.5 Ml Syringe) 0.5 mg IVPUSH Q3H PRN; Protocol PRN Reason: Pain, Severe (Pain Scale 7-10) Last Admin: 09/25/22 04:28 Dose: 0.5 mg Documented By: TAN Hydroxyzine HCl (Hydroxyzine Hcl 50 Mg Tablet) 50 mg PO BID PRN PRN Reason: Anxiety Last Admin: 09/24/22 19:40 Dose: 50 mg Documented By: TAN Piperacillin Sod/Tazobactam (Sod 3.375 gm/ Sodium Chloride) 50 mls @ 100 mls/hr IV Q6H [facility] Last Infusion: 09/25/22 05:43 Dose: 0 mls/hr Documented By: TAN Mirtazapine (Mirtazapine 30 Mg Tablet) 30 mg PO BEDTIME [facility] Last Admin: 09/24/22 19:39 Dose: 30 mg Documented By: TAN Olanzapine (Olanzapine 10 Mg Tablet) 20 mg PO BEDTIME [facility] Last Admin: 09/24/22 19:38 Dose: 20 mg Documented By: TAN Ondansetron HCl (Ondansetron Hcl 4 Mg/2 Ml Vial) 4 mg IVPUSH Q8H PRN PRN Reason: Nausea and Vomiting Oxycodone HCl (Oxycodone Hcl Immed Release 5 Mg Tablet) 5 mg PO Q6H PRN PRN Reason: Pain, Moderate (Pain Scale 4-6 Last Admin: 09/24/22 19:36 Dose: 5 mg Documented By: TAN Polyethylene Glycol (Polyethylene Glycol 3350 17 Gm Powd.Pack) 17 gm PO DAILY [facility] Last Admin: 09/24/22 09:49 Dose: Not Given Documented By: LUIS Non-Admin Reason: Patient Refused Sertraline HCl (Sertraline Hcl 50 Mg Tablet) 150 mg PO DAILY [facility] Last Admin: 09/24/22 08:44 Dose: 150 mg Documented By: LUIS Sodium Chloride (0.9 % Sodium Chloride Flush 3 Ml Syringe) 3 ml IVFLUSH QSHIFT [facility] Last Admin: 09/24/22 22:01 Dose: 3 ml Documented By: TAN Trazodone HCl (Trazodone Hcl 100 Mg Tablet) 100 mg PO BEDTIME [facility] Last Admin: 09/24/22 19:39 Dose: 100 mg Documented By: TAN Labs 09/23/22 06:22 09/25/22 06:18 Labs: Laboratory Results - last 24 hr 09/25/22 06:18 Anion Gap 12 Estim Creat Clear Calc 42.9 Estimated GFR 30 Random Glucose 100 Calcium 9.6 Procedures Date of Service Date of Service: 09/25/22 Progress Note: A&P Assessment and plan (1) Frostbite: Status: Acute (2) Toe necrosis: Status: Acute Plan Continue current plan. Dressing changes, antibiotics. Encourage incentive spirometry, out of bed with assistance. Time Spent With Patient Time: Total time managing care of this patient today ____ minutes. Quality Stroke Does the patient have a stroke diagnosis?: No VTE Prior VTE?: No VTE Risk Level:: Medical - moderate - high VTE Device Contraindication: Treatment Not Indicated VTE Drug Contraindication: N/A - Med Ordered
[2022-09-25 07:51] VITALS: BP 120/73; PULSE 87; RESP 18; TEMP 36.2; O2SAT 97
[2022-09-25] MEDS: Docusate Sodium 100 MG CAPSULE 200 MG PO (08:35)
[2022-09-25] MEDS: 0.9 % Sodium Chloride Flush 3 ML SYRINGE IVFLUSH ×3 (08:35→20:42)
[2022-09-25] MEDS: Sertraline HCL 50 MG TABLET 150 MG PO (08:35)
[2022-09-25] MEDS: Heparin Sodium,Porcine 5,000 UNIT/ML VIAL 5000 UNIT SUBCUT ×2 (08:36→20:42)
--- NOTE | 2022-09-25 08:52 | MHC.CM.PN ---
EMR REVIEWED, PT REMAINS MEDICALLY CLEARED, CM RECEIVED MESSAGE VIA [facility] WILL SUBMIT FOR AUTH, UNSURE IF SNF WILL BE GRANTED AUTH TODAY PT HAS WELLSENSE AND TODAY IS A STATE HOLIDAY, CM WILL CONT TO FOLLOW.
--- NOTE | 2022-09-25 10:38 | P.PNIM_ITS ---
Subjective Subjective Date of Service: 09/26/22 Interval History: seen and examined this morning no overnight events Feeling better Review of Systems Review of Systems: Yes all other systems are reviewed and are negative Constitutional Constitutional: Denies chills and Denies fever(s) ENT Ears, Nose, Mouth, and Throat: Denies dizziness Cardiovascular Cardiovascular: Denies chest pain, Denies palpitations and Denies dyspnea Respiratory Respiratory: Denies cough and Denies dyspnea Gastrointestinal Gastrointestinal: Denies abdominal pain, Denies nausea and Denies vomiting Neurologic Neurologic: Denies dizziness Endocrine Endocrine: Denies palpitations Physical Exam Vital Signs: Vital Signs: Last Vital Signs Temp 97.1 F 09/25/22 07:51 Pulse 87 09/25/22 07:51 Resp 18 09/25/22 07:51 BP 120/73 09/25/22 07:51 Pulse Ox 97 09/25/22 07:51 O2 Del Method Room Air 09/25/22 07:51 O2 Flow Rate 2 09/06/22 11:54 BMI result Body Mass Index 30.4 Appearing in no acute distress lung sounds are clear to auscultation heart regular rate rhythm, clear S1, S2 positive bowel sounds, abdomen is soft, nontender neuro patient is alert x3, no focal deficits Objective Data Active Medications Acetaminophen (Acetaminophen 325 Mg Tablet) 650 mg PO Q6H PRN PRN Reason: Pain, Mild (Pain Scale 1-3) Last Admin: 09/23/22 00:02 Dose: 650 mg Documented By: GILBERT Bupropion HCl (Bupropion Hcl 100 Mg Tablet) 150 mg PO Q72H [facility] Last Admin: 09/24/22 08:43 Dose: 150 mg Documented By: LUIS Calcium Carbonate (Calcium Carbonate 500 Mg Tablet) 500 mg PO TID [facility] Last Admin: 09/25/22 08:36 Dose: 500 mg Documented By: AJIT Docusate Sodium (Docusate Sodium 100 Mg Capsule) 200 mg PO DAILY [facility] Last Admin: 09/25/22 08:35 Dose: 200 mg Documented By: AJIT Heparin Sodium (Porcine) (Heparin Sodium,Porcine 5,000 Unit/Ml Vial) 5,000 unit SUBCUT BID [facility] Last Admin: 09/25/22 08:36 Dose: 5,000 unit Documented By: AJIT Hydromorphone HCl (Hydromorphone Hcl 0.5 Mg/0.5 Ml Syringe) 0.5 mg IVPUSH Q3H PRN; Protocol PRN Reason: Pain, Severe (Pain Scale 7-10) Last Admin: 09/25/22 08:36 Dose: 0.5 mg Documented By: AJIT Hydroxyzine HCl (Hydroxyzine Hcl 50 Mg Tablet) 50 mg PO BID PRN PRN Reason: Anxiety Last Admin: 09/24/22 19:40 Dose: 50 mg Documented By: TAN Piperacillin Sod/Tazobactam (Sod 3.375 gm/ Sodium Chloride) 50 mls @ 100 mls/hr IV Q6H [facility] Last Infusion: 09/25/22 05:43 Dose: 0 mls/hr Documented By: TAN Mirtazapine (Mirtazapine 30 Mg Tablet) 30 mg PO BEDTIME [facility] Last Admin: 09/24/22 19:39 Dose: 30 mg Documented By: TAN Olanzapine (Olanzapine 10 Mg Tablet) 20 mg PO BEDTIME [facility] Last Admin: 09/24/22 19:38 Dose: 20 mg Documented By: TAN Ondansetron HCl (Ondansetron Hcl 4 Mg/2 Ml Vial) 4 mg IVPUSH Q8H PRN PRN Reason: Nausea and Vomiting Oxycodone HCl (Oxycodone Hcl Immed Release 5 Mg Tablet) 5 mg PO Q6H PRN PRN Reason: Pain, Moderate (Pain Scale 4-6 Last Admin: 09/24/22 19:36 Dose: 5 mg Documented By: TAN Polyethylene Glycol (Polyethylene Glycol 3350 17 Gm Powd.Pack) 17 gm PO DAILY [facility] Last Admin: 09/25/22 08:37 Dose: Not Given Documented By: AJIT Non-Admin Reason: Patient Refused Sertraline HCl (Sertraline Hcl 50 Mg Tablet) 150 mg PO DAILY [facility] Last Admin: 09/25/22 08:35 Dose: 150 mg Documented By: AJIT Sodium Chloride (0.9 % Sodium Chloride Flush 3 Ml Syringe) 3 ml IVFLUSH QSHIFT [facility] Last Admin: 09/25/22 08:35 Dose: 3 ml Documented By: AJIT Trazodone HCl (Trazodone Hcl 100 Mg Tablet) 100 mg PO BEDTIME [facility] Last Admin: 09/24/22 19:39 Dose: 100 mg Documented By: TAN Labs 09/23/22 06:22 09/25/22 06:18 Labs: Laboratory Results - last 24 hr 09/25/22 06:18 Anion Gap 12 Estim Creat Clear Calc 42.9 Estimated GFR 30 Random Glucose 100 Calcium 9.6 Assessment and Plan (1) Frostbite: Status: Acute Plan 52yo homeless M with anxiety + depression, opioid dependence, PTSD presenting with severe BLE weakness after immobility x3d, admitted for OLIVIA due to rhabdomyolysis; was down for estimated 2-3d Fall no injury to head, no LOC, fell to knees trying to adjust bandage s/p neuro checks Q1Hx2 then Q shift patient AOx3 since admission OLIVIA due to rhabdomyolysis (pigment nephrotoxicity), acute . Resolving s/p dialysis x2 sessions, temp cath removed 09/19, with adequate urine output follow bmp nephrology following Toe necrosis Frostbite with gangrenous tissue to both feet s/p TMA Left foot and great toe right foot 09/20/22 wound care per surgical team sinus tachycardia. HR improved. tele reviewed, has had intermittent tachycardia during entire admission likely more persistent r/t pain from surgery weakness due to question of flexion myelopathy, MRI of thoracic spine was done and showed extensive T2 signal change involving the paraspinal musculature possibly sequela of rhabdomyolysis, but no definite thoracic cord signal changes noted continue physical therapy daily and will require prolonged rehabilitation course hyperphosphatemia improved, no indication for binders at this time hyperK resolved toxic-metabolic encephalopathy likely due to cocaine induced encephalopathy resolved seen by Neurology; no specific treatment recommended. polysubstance abuse crack cocaine Addiction Medicine consulted declined medication for opioid use disorder mood disorder continue bupropion [renally dosed], clonazepam, mirtapazine, olanzapine, sertraline, and trazodone; no behavioral issues noted VTE ppx: [facility] dispo: Plan for rehab attending - dr. Perrin In my clinical judgment, the patient requires continued inpatient hospitalization for the following reasons:wound care, pain control, rehab Time Spent With Patient Time: Total time managing care of this patient today ____ minutes. Quality Stroke Does the patient have a stroke diagnosis?: No VTE Prior VTE?: No VTE Risk Level:: Medical - moderate - high VTE Device Contraindication: Treatment Not Indicated VTE Drug Contraindication: N/A - Med Ordered
[2022-09-25] MEDS: oxyCODONE HCl Immed Release 5 MG TABLET PO (11:10)
--- NOTE | 2022-09-25 11:44 | PM.PNNEP ---
Subjective Subjective Date of Service: 09/26/22 Interval history: seen and examined this morning Physical Exam Vital Signs: Vital Signs: Last Vital Signs Temp 97.1 F 09/25/22 07:51 Pulse 87 09/25/22 07:51 Resp 18 09/25/22 07:51 BP 120/73 09/25/22 07:51 Pulse Ox 97 09/25/22 07:51 O2 Del Method Room Air 09/25/22 07:51 O2 Flow Rate 2 09/06/22 11:54 BMI result Body Mass Index 30.4 Const: General: cooperative, comfortable, no acute distress, alert and awake; No confusion Nutritional Appearance: average body habitus and well nourished Orientation/consciousness: patient oriented x3 and No confusion Limitations: no limitations HEENT: Head: Yes normocephalic and Yes atraumatic Ears: hearing grossly normal bilaterally Eyes: General: appearance normal, both eyes and all related structures EOM: EOMs intact bilaterally Neck: Neck: Yes supple Resp: Effort & Inspection: normal respiratory effort, able to speak in complete sentences, no audible wheezes, no cough, no respiratory distress and no use of accessory muscles Auscultation: clear to auscultation bilaterally and diminished lung sounds Cardio: Jugular venous distension: no JVD Rate: regular rate and tachycardic Rhythm: regular rhythm Heart sounds: S1 normal heart sound present and S2 normal heart sound present GI: Inspection: Yes normal to inspection and No distended Palpation (GI): Soft to palpation and nontender Auscultation: normal bowel sounds Skin: Other: b/l feet wrapped in C/D/I dressing Neuro: General: patient oriented x3, moves all extremities and No confusion Extrem: General: Yes edema Objective Data Labs 09/23/22 06:22 09/25/22 06:18 Labs: Laboratory Results - last 24 hr 09/25/22 06:18 Sodium 139 Potassium 4.2 Chloride 104 Carbon Dioxide 27 Anion Gap 12 BUN 26 H Creatinine 2.27 H Estim Creat Clear Calc 42.9 Estimated GFR 30 Random Glucose 100 Calcium 9.6 Microbiology Microbiology Results: Microbiology 08/30/22 21:00 Blood - Venous Blood Culture - Final No growth after 5 days. 08/30/22 21:00 Blood - Venous Blood Culture - Final No growth after 5 days. Procedures Date of Service Date of Service: 09/25/22 Assessment & Plan Assessment and plan (1) OLIVIA (acute kidney injury): Status: Acute (2) Metabolic acidosis: Status: Acute (3) Toe necrosis: Status: Acute Plan 1) OLIVIA (acute kidney injury): ?Status:?Acute ?Assessment and Plan: OLIVIA due to ATN from rhabdo and effects of cocaine to reduce renal perfusion; creat improving daily, nonoliguric, vol status ok-has edema. Acidosis resolved. (2) Frostbite: ?Status:?Acute ?Assessment and Plan: s/p toe amputations, some pain Plan continue supportive renal care no nephrotoxins including contrast no Nsaids allow ad yevgeniy fluids meds reviewed Time Spent With Patient Time: Total time managing care of this patient today ____ minutes. Progress Note: Quality Stroke Does the patient have a stroke diagnosis?: No
[2022-09-25 12:00] VITALS: BP 118/77; PULSE 115; RESP 20; TEMP 36.7; O2SAT 98
[2022-09-25 15:06] VITALS: BP 125/74; PULSE 90; RESP 18; TEMP 36.7; O2SAT 96
[2022-09-25 19:22] VITALS: BP 108/71; PULSE 86; RESP 18; TEMP 36.7; O2SAT 98
[2022-09-25] MEDS: Mirtazapine 30 MG TABLET PO (20:42)
[2022-09-25] MEDS: hydrOXYzine HCL 50 MG TABLET PO (20:42)
[2022-09-25] MEDS: OLANZapine 10 MG TABLET 20 MG PO (20:42)
[2022-09-25] MEDS: traZODone HCL 100 MG TABLET PO (20:42)
[2022-09-25 23:07] VITALS: BP 114/67; PULSE 97; RESP 18; TEMP 36.2; O2SAT 95
[2022-09-26] MEDS: Piperacillin Sodium/Tazobactam 3.375 GM in 0.9 % Sodium Chloride 50 ML IV ×3 (03:15→14:31)
[2022-09-26] MEDS: HYDROmorphone HCl 0.5 MG/0.5 ML SYRINGE IVPUSH ×3 (03:26→12:51)
[2022-09-26 03:44] VITALS: BP 127/76; PULSE 112; RESP 20; TEMP 37.2; O2SAT 95
[2022-09-26 05:50] VITALS: BMI 30.1
[2022-09-26 07:59] VITALS: BP 123/70; PULSE 120; RESP 18; TEMP 36.3; O2SAT 98
--- NOTE | 2022-09-26 08:52 | P.PNGS_ITS ---
Subjective Subjective Date of Service: 09/26/22 Interval history: Pain improving. Has been OOB and ambulating with walker, participating with PT. Physical Exam Vital Signs: Vital Signs: Last Vital Signs Temp 97.4 F 09/26/22 07:59 Pulse 120 H 09/26/22 07:59 Resp 18 09/26/22 07:59 BP 123/70 09/26/22 07:59 Pulse Ox 98 09/26/22 07:59 O2 Del Method Room Air 09/26/22 07:59 O2 Flow Rate 2 09/06/22 11:54 BMI result Body Mass Index 30.1 Const: General: comfortable, no acute distress and alert Orientation/consciousness: patient oriented x3 Resp: Effort & Inspection: normal respiratory effort Neuro: General: patient oriented x3 and moves all extremities Extrem: Other: left transmetatarsal amp site- remaining forefoot boggy and edematous, erythematous; sutures intact, some separation on lateral aspect, no purulent drainage right first toe amp- mild erythema and edema, sutures intact Objective Data Active Medications Acetaminophen (Acetaminophen 325 Mg Tablet) 650 mg PO Q6H PRN PRN Reason: Pain, Mild (Pain Scale 1-3) Last Admin: 09/23/22 00:02 Dose: 650 mg Documented By: GILBERT Bupropion HCl (Bupropion Hcl 100 Mg Tablet) 150 mg PO Q72H [facility] Last Admin: 09/24/22 08:43 Dose: 150 mg Documented By: LUIS Calcium Carbonate (Calcium Carbonate 500 Mg Tablet) 500 mg PO TID [facility] Last Admin: 09/25/22 20:42 Dose: 500 mg Documented By: JUANY Docusate Sodium (Docusate Sodium 100 Mg Capsule) 200 mg PO DAILY [facility] Last Admin: 09/25/22 08:35 Dose: 200 mg Documented By: CTORRConrado Heparin Sodium (Porcine) (Heparin Sodium,Porcine 5,000 Unit/Ml Vial) 5,000 unit SUBCUT BID [facility] Last Admin: 09/25/22 20:42 Dose: 5,000 unit Documented By: JUANY Hydromorphone HCl (Hydromorphone Hcl 0.5 Mg/0.5 Ml Syringe) 0.5 mg IVPUSH Q3H PRN; Protocol PRN Reason: Pain, Severe (Pain Scale 7-10) Last Admin: 09/26/22 03:26 Dose: 0.5 mg Documented By: ANTEARL Hydroxyzine HCl (Hydroxyzine Hcl 50 Mg Tablet) 50 mg PO BID PRN PRN Reason: Anxiety Last Admin: 09/25/22 20:42 Dose: 50 mg Documented By: JUANY Piperacillin Sod/Tazobactam (Sod 3.375 gm/ Sodium Chloride) 50 mls @ 100 mls/hr IV Q6H [facility] Last Infusion: 09/26/22 03:50 Dose: 0 mls/hr Documented By: ANTEARL Mirtazapine (Mirtazapine 30 Mg Tablet) 30 mg PO BEDTIME [facility] Last Admin: 09/25/22 20:42 Dose: 30 mg Documented By: ANTEARL Olanzapine (Olanzapine 10 Mg Tablet) 20 mg PO BEDTIME [facility] Last Admin: 09/25/22 20:42 Dose: 20 mg Documented By: JUANY Ondansetron HCl (Ondansetron Hcl 4 Mg/2 Ml Vial) 4 mg IVPUSH Q8H PRN PRN Reason: Nausea and Vomiting Polyethylene Glycol (Polyethylene Glycol 3350 17 Gm Powd.Pack) 17 gm PO DAILY [facility] Last Admin: 09/25/22 08:37 Dose: Not Given Documented By: CTORRZ Non-Admin Reason: Patient Refused Sertraline HCl (Sertraline Hcl 50 Mg Tablet) 150 mg PO DAILY [facility] Last Admin: 09/25/22 08:35 Dose: 150 mg Documented By: CTORRConrado Sodium Chloride (0.9 % Sodium Chloride Flush 3 Ml Syringe) 3 ml IVFLUSH QSHIFT [facility] Last Admin: 09/26/22 07:40 Dose: Not Given Documented By: N-SOFFA Non-Admin Reason: See Note Trazodone HCl (Trazodone Hcl 100 Mg Tablet) 100 mg PO BEDTIME [facility] Last Admin: 09/25/22 20:42 Dose: 100 mg Documented By: JUANY Labs 09/23/22 06:22 09/25/22 06:18 Procedures Date of Service Date of Service: 09/26/22 Progress Note: A&P Assessment and plan (1) Frostbite: Status: Acute (2) OLIVIA (acute kidney injury): Status: Acute (3) Cellulitis and abscess of foot: Status: Acute Plan POD 5 following left transmetatarsal amputation and right great toe amputation for toe necrosis following frostbite. Found to have cellulitic changes and started on IV zosyn over the weekend. Edema and erythema persist today on dressing change. Cont IV abx. Left leg elevation encouraged. Continue with local wound care and physical therapy. Plan for short-term rehab upon discharge. Time Spent With Patient Time: Total time managing care of this patient today ____ minutes. Quality Stroke Does the patient have a stroke diagnosis?: No VTE Prior VTE?: No VTE Risk Level:: Medical - moderate - high VTE Device Contraindication: Treatment Not Indicated VTE Drug Contraindication: N/A - Med Ordered
[2022-09-26] MEDS: Sertraline HCL 50 MG TABLET 150 MG PO (08:54)
[2022-09-26] MEDS: Heparin Sodium,Porcine 5,000 UNIT/ML VIAL 5000 UNIT SUBCUT (08:54)
[2022-09-26] MEDS: Docusate Sodium 100 MG CAPSULE 200 MG PO (08:55)
[2022-09-26 09:11] VITALS: BP 123/70; PULSE 120; O2SAT 98
--- NOTE | 2022-09-26 10:45 | P.PNIM_ITS ---
Subjective Subjective Date of Service: 09/26/22 Interval History: seen and examined this morning no overnight events Feeling better Review of Systems Review of Systems: Yes all other systems are reviewed and are negative Constitutional Constitutional: Denies chills and Denies fever(s) ENT Ears, Nose, Mouth, and Throat: Denies dizziness Cardiovascular Cardiovascular: Denies chest pain, Denies palpitations and Denies dyspnea Respiratory Respiratory: Denies cough and Denies dyspnea Gastrointestinal Gastrointestinal: Denies abdominal pain, Denies nausea and Denies vomiting Neurologic Neurologic: Denies dizziness Endocrine Endocrine: Denies palpitations Physical Exam Vital Signs: Vital Signs: Last Vital Signs Temp 97.4 F 09/26/22 07:59 Pulse 120 H 09/26/22 09:11 Resp 18 09/26/22 07:59 BP 123/70 09/26/22 09:11 Pulse Ox 98 09/26/22 09:11 O2 Del Method Room Air 09/26/22 07:59 O2 Flow Rate 2 09/06/22 11:54 BMI result Body Mass Index 30.1 Appearing in no acute distress lung sounds are clear to auscultation heart regular rate rhythm, clear S1, S2 positive bowel sounds, abdomen is soft, nontender neuro patient is alert x3, no focal deficits Objective Data Active Medications Acetaminophen (Acetaminophen 325 Mg Tablet) 650 mg PO Q6H PRN PRN Reason: Pain, Mild (Pain Scale 1-3) Last Admin: 09/23/22 00:02 Dose: 650 mg Documented By: GILBERT Bupropion HCl (Bupropion Hcl 100 Mg Tablet) 150 mg PO Q72H [facility] Last Admin: 09/24/22 08:43 Dose: 150 mg Documented By: LUIS Calcium Carbonate (Calcium Carbonate 500 Mg Tablet) 500 mg PO TID [facility] Last Admin: 09/26/22 08:55 Dose: 500 mg Documented By: [facility] Docusate Sodium (Docusate Sodium 100 Mg Capsule) 200 mg PO DAILY [facility] Last Admin: 09/26/22 08:55 Dose: 200 mg Documented By: VA Heparin Sodium (Porcine) (Heparin Sodium,Porcine 5,000 Unit/Ml Vial) 5,000 unit SUBCUT BID [facility] Last Admin: 09/26/22 08:54 Dose: 5,000 unit Documented By: [facility] Hydromorphone HCl (Hydromorphone Hcl 0.5 Mg/0.5 Ml Syringe) 0.5 mg IVPUSH Q3H PRN; Protocol PRN Reason: Pain, Severe (Pain Scale 7-10) Last Admin: 09/26/22 09:12 Dose: 0.5 mg Documented By: TONY-LUIZ Hydroxyzine HCl (Hydroxyzine Hcl 50 Mg Tablet) 50 mg PO BID PRN PRN Reason: Anxiety Last Admin: 09/25/22 20:42 Dose: 50 mg Documented By: ANTOIC Piperacillin Sod/Tazobactam (Sod 3.375 gm/ Sodium Chloride) 50 mls @ 100 mls/hr IV Q6H [facility] Last Infusion: 09/26/22 09:30 Dose: 0 mls/hr Documented By: TONY-SOFGUILLERMINA Mirtazapine (Mirtazapine 30 Mg Tablet) 30 mg PO BEDTIME [facility] Last Admin: 09/25/22 20:42 Dose: 30 mg Documented By: ANTEARL Olanzapine (Olanzapine 10 Mg Tablet) 20 mg PO BEDTIME [facility] Last Admin: 09/25/22 20:42 Dose: 20 mg Documented By: ANTEARL Ondansetron HCl (Ondansetron Hcl 4 Mg/2 Ml Vial) 4 mg IVPUSH Q8H PRN PRN Reason: Nausea and Vomiting Polyethylene Glycol (Polyethylene Glycol 3350 17 Gm Powd.Pack) 17 gm PO DAILY [facility] Last Admin: 09/26/22 08:55 Dose: Not Given Documented By: TONY-BLANCAFA Non-Admin Reason: Patient Refused Sertraline HCl (Sertraline Hcl 50 Mg Tablet) 150 mg PO DAILY [facility] Last Admin: 09/26/22 08:54 Dose: 150 mg Documented By: TONY-LUIZ Sodium Chloride (0.9 % Sodium Chloride Flush 3 Ml Syringe) 3 ml IVFLUSH QSHIFT [facility] Last Admin: 09/26/22 07:40 Dose: Not Given Documented By: TONY-BLANCAFA Non-Admin Reason: See Note Trazodone HCl (Trazodone Hcl 100 Mg Tablet) 100 mg PO BEDTIME [facility] Last Admin: 09/25/22 20:42 Dose: 100 mg Documented By: ANTOIC Labs 09/23/22 06:22 09/25/22 06:18 Assessment and Plan (1) Frostbite: Status: Acute Plan 52yo homeless M with anxiety + depression, opioid dependence, PTSD presenting with severe BLE weakness after immobility x3d, admitted for OLIVIA due to rhabdomyolysis; was down for estimated 2-3d Fall no injury to head, no LOC, fell to knees trying to adjust bandage s/p neuro checks Q1Hx2 then Q shift patient AOx3 since admission OLIVIA due to rhabdomyolysis (pigment nephrotoxicity), acute . Resolving s/p dialysis x2 sessions, temp cath removed 09/19, with adequate urine output follow bmp nephrology following Toe necrosis Frostbite with gangrenous tissue to both feet s/p TMA Left foot and great toe right foot 09/20/22 wound care per surgical team sinus tachycardia. HR improved. tele reviewed, has had intermittent tachycardia during entire admission likely more persistent r/t pain from surgery weakness due to question of flexion myelopathy, MRI of thoracic spine was done and showed extensive T2 signal change involving the paraspinal musculature possibly sequela of rhabdomyolysis, but no definite thoracic cord signal changes noted continue physical therapy daily and will require prolonged rehabilitation course hyperphosphatemia improved, no indication for binders at this time hyperK resolved toxic-metabolic encephalopathy likely due to cocaine induced encephalopathy resolved seen by Neurology; no specific treatment recommended. polysubstance abuse crack cocaine Addiction Medicine consulted declined medication for opioid use disorder mood disorder continue bupropion [renally dosed], clonazepam, mirtapazine, olanzapine, s ertraline, and trazodone; no behavioral issues noted VTE ppx: [facility] dispo: Plan for rehab attending - dr. Friedman In my clinical judgment, the patient requires continued inpatient hospitalization for the following reasons:wound care, pain control, rehab Time Spent With Patient Time: Total time managing care of this patient today ____ minutes. Quality Stroke Does the patient have a stroke diagnosis?: No VTE Prior VTE?: No VTE Risk Level:: Medical - moderate - high VTE Device Contraindication: Treatment Not Indicated VTE Drug Contraindication: N/A - Med Ordered
--- NOTE | 2022-09-26 10:47 | P.DS_ITS ---
DS: Providers Provider Date of Service: 09/26/22 Date of admission: 08/30/22 23:33 Primary care physician: None Physician Consults: 08/30/22 23:32 Consult to Nephrology Routine Consulting Provider: [facility] Reason for consultation: rhabdo, OLIVIA Has provider been notified: No 08/31/22 06:54 Consult to General Surgery Routine Consulting Provider: [facility] General Surgeons Reason for consultation: frostbite? Has provider been notified: No 08/31/22 11:29 Addiction Medicine Routine Consulting Provider: Addiction Covering Reason for consultation: polysub 09/02/22 09:20 Consult to Neurology Routine Consulting Provider: [facility] Reason for consultation: On ground for 2-3days- flexion myelopathy? DS: Diagnosis Discharge Diagnosis (1) Frostbite: Status: Acute DS: Summary Hospital Course Hospital Course: HPI as per admitting provider This is a 52-year-old homeless man who presents to the hospital after calling EMS for significant weakness.? Patient reports that he has been homeless, has been sleeping under a bridge for the past few days, and over the past 3 days has been progressively getting weaker and weaker to the point that now he cannot ambulate.? He states significant weakness from the waist down all the way to his toes.? He can hardly move his legs.? He has significant pain in his legs bilaterally.? The pain is 9/10, constant, he states that he has not been eating or drinking for the past few days because he cannot move.? He denies any fever no chills, no chest pain or shortness of breath, no abdominal pain nausea or vomiting.? He is having some urinary retention but states that he is able to pee, he has urgency and frequency.? Denies any headache or change in vision.? No numbness or tingling.?On arrival to the ED patient hemodynamically stable with no significant abnormal vitals Labs are significant for WBC count of 15.6, hemoglobin of 14.7, hematocrit 42.1, ESR 73, potassium 5.5, BUN of 155, 17 in the past, creatinine of 10.3 with a baseline of 1.2, AST of 277, ALT of 674, troponin of 174, CPK of 30,514, UA positive for leukocyte Estrace, and WBC Chest CT shows no acute findings, mild emphysema Patient started on aggressive IV fluids and will be admitted for further management. OLIVIA due to rhabdomyolysis (pigment nephrotoxicity), acute .Resolving. s/p dialysis x2 sessions, temp cath removed 09/19, with adequate urine output. Toe necrosis. Frostbite with gangrenous tissue to both feet. s/p TMA Left foot and great toe right foot 09/20/22. Daily wound care. sinus tachycardia. HR improved. tele reviewed, intermittent tachycardia during entire admission. likely more persistent r/t pain from surgery weakness due to question of flexion myelopathy. MRI of thoracic spine was done and showed extensive T2 signal change involving the paraspinal musculature possibly sequela of rhabdomyolysis, but no definite thoracic cord signal changes noted, continue physical therapy. Fall (09/24/22). no injury to head, no LOC,? fell to knees trying to adjust bandage. s/p neuro checks Q1Hx2 then Q shift. patient AOx3 since admission hyperphosphatemia. improved, no indication for binders during admission Hyperkalemia. Resolved toxic-metabolic encephalopathy likely due to cocaine induced encephalopathy. Resolved ? polysubstance abuse. History of crack cocaine use. Has not had any issues with withdrawal. Seen and evaluated by addiction medicine mood disorder. continue bupropion, clonazepam, mirtapazine, olanzapine, sertraline, and trazodone; no behavioral issues noted during hospitalization Less than 30 day stay Time Spent with Patient Time attestation: Total time managing care of this patient today ____ minutes. Discharge coordination time: Greater than 30 minutes Quality: Safe Use of Opioids Does Pt have an Active Cancer Diagnosis on the Problem List?: No Quality: Stroke Does the patient have a stroke diagnosis?: No Physical Exam Vital Signs: Vital Signs: Last Vital Signs Temp 97.4 F 09/26/22 07:59 Pulse 120 H 09/26/22 09:11 Resp 18 09/26/22 07:59 BP 123/70 09/26/22 09:11 Pulse Ox 98 09/26/22 09:11 O2 Del Method Room Air 09/26/22 07:59 O2 Flow Rate 2 09/06/22 11:54 BMI result Body Mass Index 30.1 Appearing in no acute distress head is normocephalic atraumatic eyes pupils are PERRLA sclera is anicteric mouth throat mucous membranes are intact and moist neck is supple no lymphadenopathy, no JVD noted lung sounds are clear to auscultation heart regular rate rhythm, clear S1, S2 positive bowel sounds, abdomen is soft, nontender neuro patient is alert x3, no focal deficits DS: Data Data Completed and Pending Pending studies at discharge: Pending at discharge 09/20/22 13:14 Surgical [PTH] Routine Discharge Plan Discharge Anticipated Discharge Date/Time: 09/26/22 14:23 Patient Disposition: Xfer [facility] Discharge Diagnosis: Frostbite with tissue necrosis OLIVIA Electrolyte abnormality Sinus tachycardia Weakness Toxic metabolic encephalopathy Referrals: [facility] [Outside] - 1 Week Drew Greer MD [Physician] - 1 Week Discharge Medications: New amoxicillin-pot clavulanate [Augmentin] 500-125 mg tablet 1 tab PO BID Qty: 14 0RF Continued bupropion HCl 150 mg tablet sustained-release 12 hr 150 mg PO DAILY trazodone 50 mg tablet 100 mg PO BEDTIME sertraline 100 mg tablet 150 mg PO DAILY clonazepam 1 mg tablet 1 mg PO BID hydroxyzine pamoate 50 mg capsule 50 mg PO BID PRN (Reason: Anxiety) mirtazapine 30 mg tablet 30 mg PO BEDTIME olanzapine 20 mg tablet 20 mg PO BEDTIME Discharge Orders: Discharge Order (Routine); Ordered 09/26/22 Ordered By: Patricia House Diet: Advance to usual diet Activity on Discharge: As tolerated Stand Alone Forms: Patient Portal Discharge page Activity Restrictions/Additional Instructions: left transmetatarsal amp: fluffs followed by kerlix and renato wrap; keep foot elevated right first toe amp: opened fluffs to site followed by kerlix and renato wrap change dressings daily; keep left foot elevated Care Plan Goals: Good wound healing Health Concerns: Frostbite with tissue necrosis OLIVIA Electrolyte abnormality Sinus tachycardia Weakness Toxic metabolic encephalopathy Plan of Treatment: Follow-up with primary care provider as needed Follow-up with general surgeon outpatient Daily wound care to bilateral lower extremities Assessment: See discharge summary
--- NOTE | 2022-09-26 10:57 | PM.PNNEP ---
Subjective Subjective Date of Service: 09/27/22 Interval history: seen and examined this morning no overnight events Feeling better Physical Exam Vital Signs: Vital Signs: Last Vital Signs Temp 97.4 F 09/26/22 07:59 Pulse 120 H 09/26/22 09:11 Resp 18 09/26/22 07:59 BP 123/70 09/26/22 09:11 Pulse Ox 98 09/26/22 09:11 O2 Del Method Room Air 09/26/22 07:59 O2 Flow Rate 2 09/06/22 11:54 BMI result Body Mass Index 30.1 Const: General: cooperative, comfortable, no acute distress, alert and awake; No confusion Nutritional Appearance: average body habitus and well nourished Orientation/consciousness: patient oriented x3 and No confusion Limitations: no limitations HEENT: Head: Yes normocephalic and Yes atraumatic Ears: hearing grossly normal bilaterally Eyes: General: appearance normal, both eyes and all related structures EOM: EOMs intact bilaterally Neck: Neck: Yes supple Resp: Effort & Inspection: normal respiratory effort, able to speak in complete sentences, no audible wheezes, no cough, no respiratory distress and no use of accessory muscles Auscultation: clear to auscultation bilaterally and diminished lung sounds Cardio: Jugular venous distension: no JVD Rate: regular rate and tachycardic Rhythm: regular rhythm Heart sounds: S1 normal heart sound present and S2 normal heart sound present GI: Inspection: Yes normal to inspection and No distended Palpation (GI): Soft to palpation and nontender Auscultation: normal bowel sounds Skin: Other: b/l feet wrapped in C/D/I dressing Neuro: General: patient oriented x3, moves all extremities and No confusion Extrem: General: Yes edema Objective Data Labs 09/23/22 06:22 09/25/22 06:18 Microbiology Microbiology Results: Microbiology 08/30/22 21:00 Blood - Venous Blood Culture - Final No growth after 5 days. 08/30/22 21:00 Blood - Venous Blood Culture - Final No growth after 5 days. Procedures Date of Service Date of Service: 09/26/22 Assessment & Plan Assessment and plan (1) OLIVIA (acute kidney injury): Status: Acute (2) Metabolic acidosis: Status: Acute (3) Toe necrosis: Status: Acute Plan 1) OLIVIA (acute kidney injury): ?Status:?Acute ?Assessment and Plan: OLIVIA due to ATN from rhabdo and effects of cocaine to reduce renal perfusion; creat improving daily, nonoliguric, vol status ok-has edema. Acidosis resolved. (2) Frostbite: ?Status:?Acute ?Assessment and Plan: s/p toe amputations, some pain Plan continue supportive renal care no nephrotoxins including contrast no Nsaids allow ad yevgeniy fluids Time Spent With Patient Time: Total time managing care of this patient today ____ minutes. Progress Note: Quality Stroke Does the patient have a stroke diagnosis?: No
[2022-09-26 11:39] VITALS: BP 119/66; PULSE 96; RESP 20; TEMP 36.2; O2SAT 97
--- NOTE | 2022-09-26 13:30 | MHC.CM.PN ---
CM has assisted Patient with the completion of a HCP.
--- NOTE | 2022-09-26 14:29 | MHC.CM.PN ---
Per ROUNDS discussion, Patient is medically cleared for dc to SNF/STR today. [facility] today at 4PM, via [facility]. Patient and his Aunt/HCP/Lakshmi @ [phone] are aware of and in agreement with the dc plan.
[2022-09-26 15:07] LABS: COVID-19 Test Negative (Negative); IDNOW Serial# BCCEAD1C
== END 2022-09-26 16:02 | disposition skilled nursing facility (03) | DRG 792 ==
LOC: HO.ED 08-31 00:37 → HO.EDOVER 08-31 00:54 → HO.IMC 08-31 07:33
PROVIDERS: Family Medicine; Hospitalist; Nurse Practitioner Family; Physician Assistant; Physician Assistant Medical; Radiology Diagnostic Radiology; Surgery; Admitting Provider Internal Medicine; Emergency Provider Internal Medicine; Visit Provider Nurse Practitioner Acute Care
PROC: 02HV33Z Insertion of Infusion Device into Superior Vena Cava, Percutaneous Approach (ICD-10-PCS; principal; 2022-09-01 14:30)
PROC: 0Y6N0Z4 Detachment at Left Foot, Complete 1st Ray, Open Approach (ICD-10-PCS; principal; 2022-09-20 11:20)
DX: T34.822A Frostbite with tissue necrosis of left foot, initial encounter (principal); N17.0 Acute kidney failure with tubular necrosis; G92.8 Other toxic encephalopathy; G95.89 Other specified diseases of spinal cord; M62.82 Rhabdomyolysis; E87.21 Acute metabolic acidosis; E83.51 Hypocalcemia; E83.39 Other disorders of phosphorus metabolism; L89.152 Pressure ulcer of sacral region, stage 2; T34.821A Frostbite with tissue necrosis of right foot, initial encounter; X31.XXXA Exposure to excessive natural cold, initial encounter; F43.12 Post-traumatic stress disorder, chronic; B19.20 Unspecified viral hepatitis C without hepatic coma; F41.9 Anxiety disorder, unspecified; T40.5X1A Poisoning by cocaine, accidental (unintentional), initial encounter; R00.0 Tachycardia, unspecified; F32.A Depression, unspecified; F15.10 Other stimulant abuse, uncomplicated; F11.20 Opioid dependence, uncomplicated; E87.5 Hyperkalemia; N39.0 Urinary tract infection, site not specified; Z59.02 Unsheltered homelessness; Z87.891 Personal history of nicotine dependence; Z79.899 Other long term (current) drug therapy
CPT/HCPCS: 0241U; 36415; 36556; 70553; 71250; 72141; 72146; 74176; 80048; 80053; 80307; 81001; 82077; 82550; 82947; 83605; 83735; 84100; 84484; 85025; 85027; 85610; 85652; 86704; 86706; 86803; 87040; 87340; 87389; 87522; 87635; 88305; 88311; 90935; 90999; 93005; 93925; 93970; 97110; 97116; 97162; 97166; 97530; 97535; 99285; A9585; C1752; C1769; J0690; J0696; J1170; J1643; J2250; J2270; J2405; J2543; J2795; J3010; J3370

== ENCOUNTER → 2022-10-03 14:28 | Outpatient (BNVA) | payer OTHER, SELFPAY | PROVIDERS: Visit Provider Surgery | DX: T33.821D Superficial frostbite of right foot, subsequent encounter (principal); T33.822D Superficial frostbite of left foot, subsequent encounter; M62.82 Rhabdomyolysis; F11.20 Opioid dependence, uncomplicated; Z89.411 Acquired absence of right great toe; Z89.432 Acquired absence of left foot; Z59.01 Sheltered homelessness | CPT/HCPCS: 99212 ==

== ENCOUNTER 2022-10-13 16:14 | Inpatient (IN) | payer OTHER, SELFPAY ==
--- NOTE | ~2022-10-13 | CT_ITS ---
EXAMINATION: CT CHEST WITH CONTRAST CT ABDOMEN AND PELVIS WITH CONTRAST CLINICAL INFORMATION: Reason for Exam fall chest trauma. COMPARISON: 08/31/2022. TECHNIQUE: Multidetector volumetric imaging was performed from the thoracic inlet through the pubic symphysis following administration of intravenous contrast material. A total of 85 mL Omnipaque 300 was administered intravenously. Sagittal and coronal images were reformatted. This CT examination was performed using dose optimization techniques as appropriate, variously including the following: *Automated exposure control *Adjustment of mA and/or kV according to patient size (this includes techniques or standardized protocols for targeted exams where dose is matched to indication/reason for exam; i.e. extremities or head) *Use of iterative reconstruction technique DOSE: 1136 mGy-cm FINDINGS: -CHEST- LUNG: Mild centrilobular pulmonary emphysema. Linear pleural parenchymal scarring is again seen within the lingula and along the medial margin of the right middle lobe. No airspace consolidation. No suspicious pulmonary nodules. Central airways are clear. MEDIASTINUM: The heart size in normal. The central vascular structures are patent and normal in caliber. No aortic dissection. No mediastinal collections. Thyroid gland is mostly unremarkable on these images. No hilar or mediastinal lymphadenopathy. PERICARDIUM/PLEURA: No significant effusion. No pleural mass or thickening. CHEST WALL/AXILLA: No chest wall contusions. No appreciable fractures. Sternum is intact. No appreciable rib fractures. -ABDOMEN/PELVIS- LIVER, GALLBLADDER, BILIARY TREE: The liver is normal in size, shape, and attenuation. No focal hepatic lesion or biliary ductal dilatation is present. The gallbladder is unremarkable with no evidence of radiopaque gallstones, gallbladder wall thickening, or obvious pericholecystic inflammatory changes. PANCREAS: Normal; no mass or surrounding fluid. SPLEEN: Normal size. No focal lesion. ADRENAL GLANDS: Normal; no mass. KIDNEYS AND URETERS: The kidneys are normal in size, shape, and attenuation. No hydronephrosis, hydroureter, or calculi seen. No perinephric stranding. BLADDER: Unremarkable. GASTROINTESTINAL TRACT: The small and large bowel are unremarkable. The appendix is unremarkable. ABDOMINAL WALL: No significant hernia is appreciated. VASCULATURE: Aorta is normal in size. No significant calcific atherosclerotic disease. LYMPH NODES: A few prominent left external iliac chain lymph nodes are within normal limits in size, measuring up to 9 mm in short axis, likely reactive in nature. No appreciable adenopathy.. PELVIC VISCERA: Central s calcifications in the prostate gland. Normal in size. OSSEUS STRUCTURES: No acute fracture or malalignment. Mild degenerative disc disease in the lumbar spine and thoracic spine. No fractures are identified. No aggressive osseous lesions are identified. CT/CT abdomen pelvis w IV con IMPRESSION: 1. No acute abnormalities identified in the chest, abdomen, and pelvis. 2. Mild centrilobular pulmonary emphysema.
--- NOTE | ~2022-10-13 | XR_ITS ---
EXAMINATION: XR FOOT, RIGHT XR FOOT, LEFT CLINICAL INFORMATION: Toes falling left. Left foot pain. COMPARISON: None TECHNIQUE: AP, lateral, and oblique views of each foot. FINDINGS: RIGHT FOOT: Right great toe is surgically absent at the level of the MTP joint. Soft tissues are swollen in this region. No acute fracture or malalignment. No appreciable surrounding osteolysis. Joint spaces appear well-preserved. Small plantar calcaneal enthesopathic spur. LEFT FOOT: Status post transmetatarsal amputation. Soft tissues are diffusely swollen, most pronounced around the site of amputation. A small amount of heterotopic bone formation is seen around the metatarsal shafts. No evidence of acute osteolysis. Joint spaces appear well-preserved in the midfoot, ankle, and hindfoot. No acute fracture or malalignment. Small enthesopathic spur is present at the Achilles tendon insertion on the calcaneus. XR/XR foot RT min 3V IMPRESSION: 1. No acute fracture or malalignment in the feet. No radiographic evidence of osteomyelitis. 2. Status post transmetatarsal amputations in the left foot and great toe amputation of the right foot.. 3. Diffuse soft tissue swelling in the left foot.
--- NOTE | ~2022-10-13 | CT_ITS ---
EXAMINATION: CT HEAD WITHOUT CONTRAST CT CERVICAL SPINE WITHOUT CONTRAST CLINICAL INFORMATION: Head strike and fall. Neck pain. COMPARISON: Brain MRI dated 09/02/2022. TECHNIQUE: Contiguous axial imaging was performed from the skullbase to vertex without intravenous administration of contrast. Multidetector helical imaging was performed through the cervical spine. This CT examination was performed using dose optimization techniques as appropriate, variously including the following: *Automated exposure control *Adjustment of mA and/or kV according to patient size (this includes techniques or standardized protocols for targeted exams where dose is matched to indication/reason for exam; i.e. extremities or head) *Use of iterative reconstruction technique DLP: 1110.14 mGy-cm. FINDINGS: HEAD: There is no evidence of acute intracranial hemorrhage or territorial infarction. No abnormal mass effect or midline shift is seen. No extra-axial fluid collections are identified. The ventricles are normal in size. Symmetric areas of encephalomalacia noted in the cerebellar hemispheres corresponding to areas of signal abnormality on prior MR imaging. Mild chronic areas of low density changes noted in the globus pallidus of the basal ganglia bilaterally and in the right frontal periventricular white matter. The osseous structures and soft tissues are normal. The mastoid air cells and visualized portions of the paranasal sinuses are well aerated. CERVICAL SPINE: No acute fracture or subluxation is identified in the cervical spine. Mild spondylitic changes noted. The disc spaces are maintained. The atlantoaxial articulation is normally maintained. The paraspinal soft tissues are normal. The lung apices are clear. CT/CT cervical spine wo IV con IMPRESSION: 1. No acute intracranial pathology. Scattered areas of chronic encephalomalacia in the cerebellar hemispheres, right frontal periventricular white matter, and in the globus pallidus of the basal ganglia bilaterally. 2. No evidence of acute cervical spine traumatic injury.
--- NOTE | ~2022-10-13 | XR_ITS ---
EXAMINATION: XR FOOT, RIGHT XR FOOT, LEFT CLINICAL INFORMATION: Toes falling left. Left foot pain. COMPARISON: None TECHNIQUE: AP, lateral, and oblique views of each foot. FINDINGS: RIGHT FOOT: Right great toe is surgically absent at the level of the MTP joint. Soft tissues are swollen in this region. No acute fracture or malalignment. No appreciable surrounding osteolysis. Joint spaces appear well-preserved. Small plantar calcaneal enthesopathic spur. LEFT FOOT: Status post transmetatarsal amputation. Soft tissues are diffusely swollen, most pronounced around the site of amputation. A small amount of heterotopic bone formation is seen around the metatarsal shafts. No evidence of acute osteolysis. Joint spaces appear well-preserved in the midfoot, ankle, and hindfoot. No acute fracture or malalignment. Small enthesopathic spur is present at the Achilles tendon insertion on the calcaneus. XR/XR foot LT min 3V IMPRESSION: 1. No acute fracture or malalignment in the feet. No radiographic evidence of osteomyelitis. 2. Status post transmetatarsal amputations in the left foot and great toe amputation of the right foot.. 3. Diffuse soft tissue swelling in the left foot.
[2022-10-13 16:28] VITALS: BP 125/67; BP 152/84; PULSE 109; PULSE 122; RESP 18; TEMP 37.1; O2SAT 97; O2SAT 99; BMI 29.5
--- NOTE | 2022-10-13 16:51 | ECG_ITS ---
Test Reason : WEAKNESS Blood Pressure : / mmHG Vent. Rate : 103 BPM Atrial Rate : 103 BPM P-R Int : 164 ms QRS Dur : 082 ms QT Int : 368 ms P-R-T Axes : 051 046 025 degrees QTc Int : 482 ms Sinus tachycardia Otherwise normal ECG When compared with ECG of 30-AUG-2022 20:37, Inverted T waves have replaced nonspecific T wave abnormality in Inferior leads Referred By: Renea Cloud Electronically Signed By:MIAN JESUS MD
--- NOTE | 2022-10-13 17:00 | ED.GENADULT ---
HPI - General Adult General Chief complaint: Wound/Laceration Stated complaint: fall Time Seen by Provider: 10/13/22 16:39 Source: patient Mode of arrival: EMS Limitations: physical limitation History of Present Illness HPI narrative: 52 year old male with pmh of anxiety, PTSD and frostbite of the bilateral feet presents to the ED with left foot pain and frequent falls. Patient reports he had all of the toes on his left foot amputated 3 weeks ago. He also reports that his right great toe was amputated as well. Patient denies any issues with infections or swelling since the amputation he reports he was discharged from the hospital 3 weeks ago and at that time he was ambulating well. Since then he has been having issues falling. He denies any dizziness, lightheadedness, weakness. Patient is homeless he reports he walks approximately 5 miles a day at least. Patient reports that right now his left foot is hurting him any feels like it is warm to touch. No other medical complaints. No fever, chills, nausea, vomiting, malaise, paresthesias. Related Data Home Medications Medication Instructions Recorded Confirmed bupropion HCl 150 mg tablet,12 hr 150 mg PO DAILY 08/31/22 10/13/22 sustained-release clonazepam 1 mg tablet 1 mg PO BID 08/31/22 10/13/22 hydroxyzine pamoate 50 mg capsule 50 mg PO BID PRN Anxiety 08/31/22 10/13/22 mirtazapine 30 mg tablet 30 mg PO BEDTIME 08/31/22 10/13/22 olanzapine 20 mg tablet 20 mg PO BEDTIME 08/31/22 10/13/22 sertraline 100 mg tablet 150 mg PO DAILY 08/31/22 10/13/22 trazodone 50 mg tablet 100 mg PO BEDTIME 08/31/22 10/13/22 Allergies Allergy/AdvReac Type Severity Reaction Status Date / Time No Known Allergies Allergy Verified 10/03/22 14:56 [No Known Allergies*] Review of Systems Review of Systems: Constitutional : No Weight loss, No Fever, No Chills, No Fatigue, No Malaise Cardiovascular : No Chest Pain, No SOB, No Dyspnea on Exertion, No Orthopnea, No Edema, No Palpitations Respiratory : No Cough, No Sputum, No Wheezing Gastrointestinal : No Nausea, No Vomiting, No Diarrhea, No Constipation, No abdominal Pain, No Hematochezia, No Melena Genitourinary : No Dysuria, No Urinary Frequency, No Hematuria, Musculoskeletal : + joint pain, + Myalgias, +Swelling, + Erythema Skin : No Skin Lesions, No rash Neuro : No Weakness, No Numbness, No Dizziness, No Headache Psych : No Anxiety/Panic, No Depression Heme/Lymph: No Bruising, No Bleeding,No Lymphadenopathy Endocrine : No Polyuria, No Polydipsia All other systems reviewed and are negative [facility] Past Medical History Attestation statement: The following information was validated with the patient. Source: old records reviewed and nursing notes reviewed Medical History Anxiety Chronic post-traumatic stress disorder (PTSD) Depression Mood disorder Opioid dependence on agonist therapy Suicidal ideation Surgical History History of transmetatarsal amputation of left foot (09/20/22) Social History Social History Household Members: None Housing: Homeless Do you presently have visiting nurse or other home services: No Alcohol intake: never Patient Tobacco Use Status: Former Tobacco user Quit Date: 11/07/20 Tobacco use type: Cigarette Cigarette Packs Per Day: 0.5 Cigarettes Per Day: 10.0 Years Smoked: 20 Smoked in Last 30 Days: Yes e-Cigarette/Vaping Use: Never Used Second Hand Smoke Exposure: No Use of substances other than those prescribed or required for medical reasons: No Substance Use Type: Crack/Cocaine and Opiates Advance Directives: Yes Advance Directives on File: Yes Advance Directives Date on File: 09/27/22 service: No Current occupational status: employed Sexual orientation: Straight/Heterosexual Physical Exam ED Vital Signs: Vital Signs - 24 hr 10/13/22 16:28 Temperature 98.8 F Pulse Rate 109 H Respiratory Rate 18 Blood Pressure 125/67 Pulse Oximetry 99 Oxygen Delivery Method Room Air BMI result Body Mass Index 29.5 VSS Appearance: Alert.? Oriented X3.? No acute distress.? Head: Normocephalic, atraumatic, no step-offs or deformities Neck: Normal inspection.? Neck supple.? CVS: Normal heart rate and rhythm.? Pulses normal.? Respiratory: No respiratory distress.? Breath sounds normal.? Abdomen: Soft and nontender.? Skin: Skin warm and dry.?Left foot erythematous and edematous. Amputation wounds are oozing. Bright red blood in patients left slipper. R foot also appears to have some erythema to distal aspect. Extremities: + left lower extremity edema.? No calf ttp. 4/5 strength to left lower extremity, 5/5 strength to bilateral upper extremities and right lower extremity, pulses 2+ and regular Back: No midline tenderness, no C-spine tenderness, full range of motion, + pain with left straight leg raise Neuro: Oriented X 3.? No motor deficit.? No sensory deficit. CN 2-12 intact Psych: Patient denies suicidal or homicidal ideation Course Reevaluation(s) Reevaluation #1: CBC with slight leukocytosis 12.9, and a baseline normocytic anemia. ESR elevated 54. Chemistry with baseline acute on chronic kidney injury, also noted to be in rhabdomyolysis CPK 1242, giving IV fluids at this time. Negative lactic acid, CRP also elevated 13.72. I am covering patient was ceftriaxone for possibility of osteomyelitis of foot. X-rays have been ordered. Ethanol negative. Urine pending. CT of head unremarkable no intracranial pathology. No evidence of acute cervical spine traumatic injury. CT of chest, abdomen and pelvis with no acute abnormalities. X-rays of bilateral feet pending at this time. EKG unremarkable. Time: 21:15 Reevaluation #2: Patient will be admitted to the hospital. Time: 21:16 Medications Administered Discontinued Medications Generic Name Dose Route Start Last Admin Trade Name Freq PRN Reason Stop Dose Admin Sodium Chloride 1,000 mls @ 999 mls/hr 10/13/22 18:30 10/13/22 18:42 Ns IV 10/13/22 19:30 999 mls/hr .Q1H1M IRVING Administration Sodium Chloride 1,000 mls @ 999 mls/hr 10/13/22 18:30 10/13/22 18:42 Ns IV 10/13/22 19:30 999 mls/hr .Q1H1M IRVING Administration Ceftriaxone Sodium 1 gm/ 50 mls @ 100 mls/hr 10/13/22 19:53 10/13/22 21:03 Sodium Chloride IV 10/13/22 20:22 Infused ONCE ONE Infusion Iohexol 100 ml 10/13/22 19:01 10/13/22 19:02 Iohexol 350 Mg/Ml 100 Ml Infus..Btl IV 10/13/22 19:02 85 ml ONCE ONE Administration Morphine Sulfate 4 mg 10/13/22 17:22 10/13/22 18:14 Morphine Sulfate 4 Mg/Ml Cartridge IVPUSH 10/13/22 17:23 4 mg ONCE ONE Administration Protocol Medical Decision Making Medical Decision Making [facility] Narrative: 52 year old male presents with left foot pain, oozing wounds and frequent falls. PE: Skin: Skin warm and dry.?Left foot erythematous and edematous. Amputation wounds are oozing. Bright red blood in patients left slipper. Extremities: + left lower extremity edema.? No calf ttp. 4/5 strength to left lower extremity, 5/5 strength to bilateral upper extremities and right lower extremity, pulses 2+ and regular Plan: Labs, EKG, imaging Ddx: Most likely cellulitis, concern for osteomyelitis. Will rule out traumatic injury to chest, abdomen, pelvis, and spine. Unlikely stroke, posterior stroke, ICH. No signs of threatened limb at this time, venous or arterial occlusion. Differential Diagnosis Differential Diagnoses: The differential diagnosis associated with the presentation includes Most likely cellulitis, concern for osteomyelitis. Will rule out traumatic injury to chest, abdomen, pelvis, and spine. Unlikely stroke, posterior stroke, ICH. No signs of threatened limb at this time, venous or arterial occlusion. Admission/Observation Consideration of admission/observation: Escalation of care including admission/observation considered possible Lab Data [facility] Lab Attestation statement: I reviewed the patient's lab results. 10/13/22 17:31 10/13/22 17:31 Labs: Lab Results 10/13/22 10/13/22 10/13/22 Range/Units 17:31 17:31 17:31 WBC 12.9 H (4.8-10.8) X10*3/uL RBC 3.33 L (4.60-5.80) X10*6/uL Hgb 9.5 L (14.0-18.0) g/dl Hct 28.8 L (42.0-52.0) % MCV 86.5 (80.0-98.0) fL MCH 28.5 (27.0-33.0) pg MCHC 33.0 (31.0-36.0) g/dl RDW 15.0 (11.0-16.0) % Plt Count 323 D (160-400) X10*3/uL MPV 9.0 L (9.4-12.4) fL Immature Gran % (Auto) 0.4 (0.0-0.4) % Neut % (Auto) 69.7 (45-73) % Lymph % (Auto) 15.1 L (20-40) % [place] % (Auto) 13.9 H (2-11) % Eos % (Auto) 0.5 (0-4) % Baso % (Auto) 0.4 (0-2) % Lymph # (Auto) 1.9 (1.2-4.9) X10*3/uL [place] # (Auto) 1.8 H (0.1-1.2) X10*3/uL Eos # (Auto) 0.1 (0.0-0.4) X10*3/uL Baso # (Auto) 0.1 (0.0-0.2) X10*3/uL Abs Immat Gran (auto) 0.05 H (0.00-0.03) X10*3/uL Absolute Neuts (auto) 9.0 H (2.0-8.3) x10*3/uL Absolute Nucleated RBC 0.000 (0.0-0.012) X10*3/uL Nucleated RBC % (auto) 0.0 (0.0-0.2) /100WBC Smear Tech's Comments VERIFIED ESR (0-15) MM/HR PT (10.0-13.1) SEC INR (0.9-1.1) Sodium 138 (135-145) mmol/L Potassium 4.2 (3.3-5.1) mmol/L Chloride 105 (96-108) mmol/L Carbon Dioxide 19 L (22-29) mmol/L Anion Gap 18 (12-20) BUN 20 H (9-16) mg/dL Creatinine 1.50 H (0.5-1.4) mg/dL Estim Creat Clear Calc 64.1 Estimated GFR 49 Random Glucose 88 (60-115) mg/dL Lactic Acid (0.5-2.0) mmol/L Calcium 9.8 (8.4-10.2) mg/dL Magnesium 2.0 (1.6-2.6) mg/dL Total Bilirubin 1.0 (0.0-1.0) mg/dL AST 34 (5-37) U/L ALT 15 (0-40) U/L Alkaline Phosphatase 166 H (39-117) U/L Total Creatine Kinase 1242 H (38-174) U/L Troponin I High Sens 12.9 D (<3.5-35.0) ng/L C-Reactive Protein (< or = 0.50) mg/dL Total Protein 7.3 (6.5-8.0) g/dL Albumin 4.3 (3.5-5.0) g/dL Ethyl Alcohol mg/dL COVID-19 (KHUSHI) (Negative) COVID-19 Clin Com 10/13/22 10/13/22 10/13/22 Range/Units 17:31 17:31 17:31 WBC (4.8-10.8) X10*3/uL RBC (4.60-5.80) X10*6/uL Hgb (14.0-18.0) g/dl Hct (42.0-52.0) % MCV (80.0-98.0) fL MCH (27.0-33.0) pg MCHC (31.0-36.0) g/dl RDW (11.0-16.0) % Plt Count (160-400) X10*3/uL MPV (9.4-12.4) fL Immature Gran % (Auto) (0.0-0.4) % Neut % (Auto) (45-73) % Lymph % (Auto) (20-40) % [place] % (Auto) (2-11) % Eos % (Auto) (0-4) % Baso % (Auto) (0-2) % Lymph # (Auto) (1.2-4.9) X10*3/uL [place] # (Auto) (0.1-1.2) X10*3/uL Eos # (Auto) (0.0-0.4) X10*3/uL Baso # (Auto) (0.0-0.2) X10*3/uL Abs Immat Gran (auto) (0.00-0.03) X10*3/uL Absolute Neuts (auto) (2.0-8.3) x10*3/uL Absolute Nucleated RBC (0.0-0.012) X10*3/uL Nucleated RBC % (auto) (0.0-0.2) /100WBC Smear Tech's Comments ESR (0-15) MM/HR PT 12.5 (10.0-13.1) SEC INR 1.1 (0.9-1.1) Sodium (135-145) mmol/L Potassium (3.3-5.1) mmol/L Chloride (96-108) mmol/L Carbon Dioxide (22-29) mmol/L Anion Gap (12-20) BUN (9-16) mg/dL Creatinine (0.5-1.4) mg/dL Estim Creat Clear Calc Estimated GFR Random Glucose (60-115) mg/dL Lactic Acid (0.5-2.0) mmol/L Calcium (8.4-10.2) mg/dL Magnesium (1.6-2.6) mg/dL Total Bilirubin (0.0-1.0) mg/dL AST (5-37) U/L ALT (0-40) U/L Alkaline Phosphatase (39-117) U/L Total Creatine Kinase (38-174) U/L Troponin I High Sens (<3.5-35.0) ng/L C-Reactive Protein 13.72 H (< or = 0.50) mg/dL Total Protein (6.5-8.0) g/dL Albumin (3.5-5.0) g/dL Ethyl Alcohol < 10 mg/dL COVID-19 (KHUSHI) Negative (Negative) COVID-19 Clin Com See Note 10/13/22 10/13/22 Range/Units 17:46 20:29 WBC (4.8-10.8) X10*3/uL RBC (4.60-5.80) X10*6/uL Hgb (14.0-18.0) g/dl Hct (42.0-52.0) % MCV (80.0-98.0) fL MCH (27.0-33.0) pg MCHC (31.0-36.0) g/dl RDW (11.0-16.0) % Plt Count (160-400) X10*3/uL MPV (9.4-12.4) fL Immature Gran % (Auto) (0.0-0.4) % Neut % (Auto) (45-73) % Lymph % (Auto) (20-40) % [place] % (Auto) (2-11) % Eos % (Auto) (0-4) % Baso % (Auto) (0-2) % Lymph # (Auto) (1.2-4.9) X10*3/uL [place] # (Auto) (0.1-1.2) X10*3/uL Eos # (Auto) (0.0-0.4) X10*3/uL Baso # (Auto) (0.0-0.2) X10*3/uL Abs Immat Gran (auto) (0.00-0.03) X10*3/uL Absolute Neuts (auto) (2.0-8.3) x10*3/uL Absolute Nucleated RBC (0.0-0.012) X10*3/uL Nucleated RBC % (auto) (0.0-0.2) /100WBC Smear Tech's Comments ESR 54 H (0-15) MM/HR PT (10.0-13.1) SEC INR (0.9-1.1) Sodium (135-145) mmol/L Potassium (3.3-5.1) mmol/L Chloride (96-108) mmol/L Carbon Dioxide (22-29) mmol/L Anion Gap (12-20) BUN (9-16) mg/dL Creatinine (0.5-1.4) mg/dL Estim Creat Clear Calc Estimated GFR Random Glucose (60-115) mg/dL Lactic Acid 1.0 (0.5-2.0) mmol/L Calcium (8.4-10.2) mg/dL Magnesium (1.6-2.6) mg/dL Total Bilirubin (0.0-1.0) mg/dL AST (5-37) U/L ALT (0-40) U/L Alkaline Phosphatase (39-117) U/L Total Creatine Kinase (38-174) U/L Troponin I High Sens (<3.5-35.0) ng/L C-Reactive Protein (< or = 0.50) mg/dL Total Protein (6.5-8.0) g/dL Albumin (3.5-5.0) g/dL Ethyl Alcohol mg/dL COVID-19 (KHUSHI) (Negative) COVID-19 Clin Com Core Measures AMI core measures followed: Yes Measure exclusions: not indicated Discharge Plan Discharge Clinical Impression: Cellulitis, Rhabdomyolysis Patient Disposition: Admitted As Inpatient Prescriptions: No Action bupropion HCl 150 mg tablet sustained-release 12 hr 150 mg PO DAILY trazodone 50 mg tablet 100 mg PO BEDTIME sertraline 100 mg tablet 150 mg PO DAILY clonazepam 1 mg tablet 1 mg PO BID hydroxyzine pamoate 50 mg capsule 50 mg PO BID PRN (Reason: Anxiety) mirtazapine 30 mg tablet 30 mg PO BEDTIME olanzapine 20 mg tablet 20 mg PO BEDTIME
[2022-10-13 17:50] LABS: Basophils Absolute Auto 0.1 X10*3/uL (0.0-0.2); Basophils Percent Auto 0.4 % (0-2); Eosinophils Absolute Auto 0.1 X10*3/uL (0.0-0.4); Eosinophils Percent Auto 0.5 % (0-4); Hematocrit 28.8 % (42.0-52.0); Hemoglobin 9.5 g/dl (14.0-18.0); Imm Gran Abs Auto 0.05 X10*3/uL (0.00-0.03); Imm Gran Pct Auto 0.4 % (0.0-0.4); Lymphocytes Absolute Auto 1.9 X10*3/uL (1.2-4.9); Lymphocytes Percent Auto 15.1 % (20-40); MANUAL DIFF FLAG SCAN; Mean Corpuscular Hemoglobin 28.5 pg (27.0-33.0); Mean Corpuscular Volume 86.5 fL (80.0-98.0); Monocytes Absolute Auto 1.8 X10*3/uL (0.1-1.2); Monocytes Percent Auto 13.9 % (2-11); Neutrophils Percent Auto 69.7 % (45-73); Platelet Count 323 X10*3/uL (160-400); Red Blood Count 3.33 X10*6/uL (4.60-5.80); SCAN SMEAR FLAG 1; White Blood Count 12.9 X10*3/uL (4.8-10.8)
[2022-10-13 17:59] LABS: COVID-19 Test Negative (Negative); IDNOW Serial# BCCEAD1C; INTERNATIONAL NORM RATIO 1.1 (0.9-1.1); Prothrombin Time 12.5 SEC (10.0-13.1)
[2022-10-13 18:02] LABS: Ethanol < 10 mg/dL
[2022-10-13 18:11] LABS: Troponin-I High Sensitivity 12.9 ng/L (<3.5-35.0)
[2022-10-13] MEDS: Morphine Sulfate 4 MG/ML CARTRIDGE IVPUSH ×2 (18:14→22:22)
[2022-10-13 18:22] LABS: SLIDE REVIEW VERIFIED
[2022-10-13 18:26] LABS: Alanine Aminotransferase 15 U/L (0-40); Albumin Level 4.3 g/dL (3.5-5.0); Alkaline Phosphatase 166 U/L (39-117); Anion Gap 18 (12-20); Aspartate Amino Transferase 34 U/L (5-37); Blood Urea Nitrogen 20 mg/dL (9-16); Calcium 9.8 mg/dL (8.4-10.2); Carbon Dioxide 19 mmol/L (22-29); Chloride 105 mmol/L (96-108); Creatinine Clr Calc Pharmacy 64.1; Estimated Glomerular Filt Rate 49; Glucose Random 88 mg/dL (60-115); Potassium 4.2 mmol/L (3.3-5.1); Sodium 138 mmol/L (135-145); Total Protein 7.3 g/dL (6.5-8.0)
[2022-10-13] MEDS: 0.9 % Sodium Chloride 1,000 ML 999 ML IV ×2 (18:42)
[2022-10-13] MEDS: iohexoL 350 MG/ML 100 ML INFUS..BTL IV (19:02)
[2022-10-13] MEDS: cefTRIAXone sodium 1 GM in 0.9 % Sodium Chloride 50 ML IV (20:32)
[2022-10-13 20:44] LABS: Erythrocyte Sedimentation Rate 54 MM/HR (0-15)
[2022-10-13 20:54] LABS: C Reactive Protein 13.72 mg/dL (< or = 0.50)
--- NOTE | 2022-10-13 21:11 | PHA.MEDREC ---
Pharmacy Consult ? Medication Reconciliation Pharmacy has completed the medication reconciliation.Pt states he has had no medication changes from last visit here only a few weeks ago. Used discharge summary and claim history to complete med rec.
[2022-10-13 21:18] VITALS: BP 114/62; PULSE 102; RESP 17; TEMP 36.7; O2SAT 99
[2022-10-13 21:37] LABS: Appearance Urine Cloudy; Color Urine Yellow; Glucose Urine UA Negative (Negative); Leukocyte Esterase Urine Negative (Negative); Nitrite Urine Negative (Negative); PH 5.5 (5.0-9.0); Specific Gravity - Urine >= 1.030 (1.005-1.025); UMIC TRIGGER UACC YES; Urine Blood Negative (Negative); Urine Ketones 15 mg/dL (Negative); Urine Protein 30 (1+) mg/dL (Neg-Trace)
[2022-10-13 21:39] LABS: Bacteria Urine None Seen (None Seen); Hyaline Casts Urine 0-2 /LPF (0-2); RBC Urine 0-2 /HPF (0-2); Squamous Epithelial Cell Urine 0-2 /HPF (0-2); WBC Urine 0-5 /HPF (0-5)
--- NOTE | 2022-10-13 21:41 | P.HPHOSP_ITS ---
History of Present Illness Date of Service: 10/13/22 Chief Complaint: foot swelling,pain 52-year-old male with past medical history of anxiety depression, opiate use disorder, recent status post TMA of left foot and great toe of right foot on 09/20, OLIVIA due to rhabdo, who was discharged from the hospital on 09/26 after undergoing TMA and right toe amputation and discharged to correction returns to the hospital with complaints of worsening foot wound and swelling. Patient reports that he was very unhappy with correction, left yesterday, and had a 10 mi walk due to him being homeless. He then developed significant pain, swelling in his left foot, draining blood, having chills, no fever, denies any chest pain, no shortness of breath, no abdominal pain nausea or vomiting, no diarrhea constipation, no urinary symptoms and no lower extremity edema. Comes into the hospital also complaining of generalized weakness. He remains homeless but denies any substance abuse on arrival to the ED patient hemodynamically stable with a slightly elevated heart rate of 109 lab significant for WBC count of 12.9, CPK of 1200, creatinine of 1.5 which is around his baseline, CRP of 13.7, ESR of 50, UA negative, UDS positive for opioids, benzos, and cocaine X-ray of the foot shows diffuse soft tissue swelling in the left foot patient started on IV fluids and antibiotics and will be admitted for further management Review of Systems Review of Systems: Yes all other systems are reviewed and are negative [facility] Medical History Anxiety Chronic post-traumatic stress disorder (PTSD) Depression Mood disorder Opioid dependence on agonist therapy Suicidal ideation Surgical History (Updated 10/14/22 @ 06:34 by Shubham Villarreal MD) History of transmetatarsal amputation of left foot (09/20/22) Social History Household Members: Other Housing: Homeless Do you presently have visiting nurse or other home services: No Alcohol intake: never Patient Tobacco Use Status: Current someday Tobacco user Tobacco use type: Cigarette Cigarette Packs Per Day: 0.5 Cigarettes Per Day: 5 Years Smoked: 20 Smoked in Last 30 Days: Yes e-Cigarette/Vaping Use: Never Used Patient Interested in Nicotine Replacement: No Second Hand Smoke Exposure: No Use of substances other than those prescribed or required for medical reasons: No Substance Use Type: Crack/Cocaine and Opiates Have you been hit, kicked, punched, or otherwise hurt by someone within the past year? If so, by whom?: No Do you feel safe in your current relationship?: No Current Relationship Is there a partner from a previous relationship who is making you feel unsafe now?: No Are you made to feel afraid or neglected: No Advance Directives: Yes Advance Directives on File: Yes Advance Directives Date on File: 09/27/22 Do you have thoughts of harming others: None Do you have a plan to hurt others: No Plan Recently lost weight without trying: No Eating poorly because of decreased appetite: No Nutrition Risks: No Nutritional Risk service: No Current occupational status: employed Sexual orientation: Straight/Heterosexual Meds Allergies Allergy/AdvReac Type Severity Reaction Status Date / Time No Known Allergies Allergy Verified 10/03/22 14:56 [No Known Allergies*] Active Medications: Current Medications Pharmacy Consult (Consult Rx Perform Med Rec) 1 each MISCELLANE ONCE PRN PRN Reason: Consult order Home Medications Medication Instructions Recorded Confirmed Last Taken Type bupropion HCl 150 mg tablet,12 hr 150 mg PO DAILY 08/31/22 10/13/22 10/13/22 History sustained-release clonazepam 1 mg tablet 1 mg PO BID 08/31/22 10/13/22 10/13/22 History hydroxyzine pamoate 50 mg capsule 50 mg PO BID PRN Anxiety 08/31/22 10/13/22 10/13/22 History mirtazapine 30 mg tablet 30 mg PO BEDTIME 08/31/22 10/13/22 10/12/22 History olanzapine 20 mg tablet 20 mg PO BEDTIME 08/31/22 10/13/22 10/12/22 History sertraline 100 mg tablet 150 mg PO DAILY 08/31/22 10/13/22 10/13/22 History trazodone 50 mg tablet 100 mg PO BEDTIME 08/31/22 10/13/22 10/12/22 History Physical Exam Vital Signs and Narrative: Vital Signs: Last Vital Signs Temp 98.1 F 10/13/22 21:18 Pulse 102 H 10/13/22 21:18 Resp 17 10/13/22 21:18 BP 114/62 10/13/22 21:18 Pulse Ox 99 10/13/22 21:18 O2 Del Method Room Air 10/13/22 21:18 BMI result Body Mass Index 29.5 Const: General: cooperative and no acute distress Orientati on/consciousness: patient oriented x3 Eyes: General: appearance normal, both eyes and all related structures Pupils: Equal, round and reactive pupils present Resp: Effort & Inspection: normal respiratory effort, able to speak in complete sentences and abnormal respiratory pattern Auscultation: clear to auscultation bilaterally Cardio: Rate: regular rate Rhythm: regular rhythm GI: Palpation (GI): Soft to palpation Auscultation: normal bowel sounds Skin: Other: has sloughing of 2nd and 3rd toe of the right foot which patient reports new, significant tenderness has warmth, tenderness, erythema, swelling of the left surgical stump see images Neuro: General: patient oriented x3 Cranial nerves: Yes Equal, round and reactive pupils present Cognition (Neuro): normal cognition Results Labs 10/13/22 17:31 10/13/22 17:31 Labs: Laboratory Results - last 24 hr 10/13/22 10/13/22 10/13/22 17:31 17:31 17:31 MCV 86.5 MCH 28.5 MCHC 33.0 RDW 15.0 Plt Count 323 D MPV 9.0 L Immature Gran % (Auto) 0.4 Neut % (Auto) 69.7 Lymph % (Auto) 15.1 L [place] % (Auto) 13.9 H Eos % (Auto) 0.5 Baso % (Auto) 0.4 Lymph # (Auto) 1.9 [place] # (Auto) 1.8 H Eos # (Auto) 0.1 Baso # (Auto) 0.1 Abs Immat Gran (auto) 0.05 H Absolute Neuts (auto) 9.0 H Absolute Nucleated RBC 0.000 Nucleated RBC % (auto) 0.0 Smear Tech's Comments VERIFIED ESR PT INR Anion Gap 18 Estim Creat Clear Calc 64.1 Estimated GFR 49 Random Glucose 88 Lactic Acid Calcium 9.8 Magnesium 2.0 Total Bilirubin 1.0 AST 34 ALT 15 Alkaline Phosphatase 166 H Total Creatine Kinase 1242 H Troponin I High Sens 12.9 D C-Reactive Protein Total Protein 7.3 Albumin 4.3 Urine Color Urine Appearance Urine pH Ur Specific [place] Urine Protein Urine Glucose (UA) Urine Ketones Urine Blood Urine Nitrite Ur Leukocyte Esterase Urine RBC Urine WBC Ur Squamous Epith Cells Urine Bacteria Hyaline Casts Ethyl Alcohol COVID-19 (KHUSHI) COVID-19 Clin Com 10/13/22 10/13/22 10/13/22 17:31 17:31 17:31 MCV MCH MCHC RDW Plt Count MPV Immature Gran % (Auto) Neut % (Auto) Lymph % (Auto) [place] % (Auto) Eos % (Auto) Baso % (Auto) Lymph # (Auto) [place] # (Auto) Eos # (Auto) Baso # (Auto) Abs Immat Gran (auto) Absolute Neuts (auto) Absolute Nucleated RBC Nucleated RBC % (auto) Smear Tech's Comments ESR PT 12.5 INR 1.1 Anion Gap Estim Creat Clear Calc Estimated GFR Random Glucose Lactic Acid Calcium Magnesium Total Bilirubin AST ALT Alkaline Phosphatase Total Creatine Kinase Troponin I High Sens C-Reactive Protein 13.72 H Total Protein Albumin Urine Color Urine Appearance Urine pH Ur Specific [place] Urine Protein Urine Glucose (UA) Urine Ketones Urine Blood Urine Nitrite Ur Leukocyte Esterase Urine RBC Urine WBC Ur Squamous Epith Cells Urine Bacteria Hyaline Casts Ethyl Alcohol < 10 COVID-19 (KHUSHI) Negative COVID-19 Clin Com See Note 10/13/22 10/13/22 10/13/22 17:46 20:29 21:23 MCV MCH MCHC RDW Plt Count MPV Immature Gran % (Auto) Neut % (Auto) Lymph % (Auto) [place] % (Auto) Eos % (Auto) Baso % (Auto) Lymph # (Auto) [place] # (Auto) Eos # (Auto) Baso # (Auto) Abs Immat Gran (auto) Absolute Neuts (auto) Absolute Nucleated RBC Nucleated RBC % (auto) Smear Tech's Comments ESR 54 H PT INR Anion Gap Estim Creat Clear Calc Estimated GFR Random Glucose Lactic Acid 1.0 Calcium Magnesium Total Bilirubin AST ALT Alkaline Phosphatase Total Creatine Kinase Troponin I High Sens C-Reactive Protein Total Protein Albumin Urine Color Yellow Urine Appearance Cloudy Urine pH 5.5 Ur Specific [place] >= 1.030 H Urine Protein 30 (1+) H Urine Glucose (UA) Negative Urine Ketones 15 Urine Blood Negative Urine Nitrite Negative Ur Leukocyte Esterase Negative Urine RBC 0-2 Urine WBC 0-5 Ur Squamous Epith Cells 0-2 Urine Bacteria None Seen Hyaline Casts 0-2 Ethyl Alcohol COVID-19 (KHUSHI) COVID-19 Clin Com Imaging Radiologist's Impressions: Impressions Abdomen/Pelvis CT 10/13/22 19:29 IMPRESSION: 1. No acute abnormalities identified in the chest, abdomen, and pelvis. 2. Mild centrilobular pulmonary emphysema. Chest CT 10/13/22 19:29 IMPRESSION: 1. No acute abnormalities identified in the chest, abdomen, and pelvis. 2. Mild centrilobular pulmonary emphysema. Cervical Spine CT 10/13/22 19:30 IMPRESSION: 1. No acute intracranial pathology. Scattered areas of chronic encephalomalacia in the cerebellar hemispheres, right frontal periventricular white matter, and in the globus pallidus of the basal ganglia bilaterally. 2. No evidence of acute cervical spine traumatic injury. Head CT 10/13/22 19:30 IMPRESSION: 1. No acute intracranial pathology. Scattered areas of chronic encephalomalacia in the cerebellar hemispheres, right frontal periventricular white matter, and in the globus pallidus of the basal ganglia bilaterally. 2. No evidence of acute cervical spine traumatic injury. Assessment and Plan (1) Cellulitis: Status: Acute (2) Rhabdomyolysis: Status: Acute Plan 52-year-old male with past medical history of frostbite status post TMA of the left foot presents to the hospital after walking 10 miles complaining of left foot pain, erythema, found to have rhabdo as well as cellulitis # acute rhabdomyolysis - likely secondary to muscle injury in the setting of walking 10 miles on foot - kidney function at baseline - treat with IV fluids - follow CPK # cellulitis of left foot - at the site of recent TMA - will treat with IV antibiotics - infectious disease consult - has elevated ESR and CRP, will hold off on MRI until patient evaluated by Infectious Disease - wound care - follow cultures DVT prophylaxis: Lovenox given patient's need for IV fluids for rhabdo, as well as IV antibiotics patient will require 2 nights inpatient hospital stay for further management and monitoring Time Spent With Patient Time: Total time managing care of this patient today ____ minutes. Quality Stroke Does the patient have a stroke diagnosis?: No VTE Prior VTE?: No VTE Risk Level:: Medical - moderate - high VTE Device Contraindication: Treatment Not Indicated VTE Drug Contraindication: N/A - Med Ordered
[2022-10-13 21:45] LABS: Amphetamine Screen Urine Not Detected (Not Detect); Barbiturates, Urine Not Detected (Not Detect); Benzodiazepines Screen Urine POSITIVE (Not Detect); Cannabinoid Screen Urine Not Detected (Not Detect); Cocaine Screen Urine POSITIVE (Not Detect); Fentanyl, urine Not Detected (Not Detect); Opiate Screen Urine POSITIVE (Not Detect); Phencyclidine Screen Urine Not Detected (Not Detect)
[2022-10-13 21:57] LABS: Troponin-I High Sensitivity 12.9 ng/L (<3.5-35.0)
[2022-10-13 22:22] VITALS: RESP 16
[2022-10-13] MEDS: Heparin Sodium,Porcine 5,000 UNIT/ML VIAL 5000 UNIT SUBCUT (22:22)
[2022-10-13] MEDS: vancomycin/NS 2,000 MG/500 ML PLAST..BAG 250 MG IV (22:23)
--- NOTE | 2022-10-13 23:05 | PC.NURSE ---
Nurse to nurse repot given to medicare specialist. patient to be transported to [id number] by [facility].
[2022-10-13 23:29] VITALS: BP 106/63; PULSE 93; RESP 18; TEMP 37.1; O2SAT 97
[2022-10-13] MEDS: Lactated Ringers 1,000 ML 150 ML IVCONT (23:39)
[2022-10-14] VITALS: BP 118/66; PULSE 106; RESP 18; TEMP 37; O2SAT 99
[2022-10-14 01:04] VITALS: BMI 24.4
[2022-10-14] MEDS: Morphine Sulfate 4 MG/ML CARTRIDGE IVPUSH ×5 (02:15→21:39)
[2022-10-14 03:37] VITALS: BP 127/64; PULSE 100; RESP 18; TEMP 37; O2SAT 97
[2022-10-14] MEDS: cefEPime HCl 2 GM in 0.9 % Sodium Chloride 50 ML IV (05:12)
[2022-10-14 06:03] LABS: Basophils Percent Auto 0.3 % (0-2); Eosinophils Absolute Auto 0.2 X10*3/uL (0.0-0.4); Eosinophils Percent Auto 2.3 % (0-4); Hematocrit 25.6 % (42.0-52.0); Hemoglobin 8.2 g/dl (14.0-18.0); Imm Gran Abs Auto 0.04 X10*3/uL (0.00-0.03); Imm Gran Pct Auto 0.4 % (0.0-0.4); Lymphocytes Absolute Auto 1.4 X10*3/uL (1.2-4.9); Lymphocytes Percent Auto 14.5 % (20-40); MANUAL DIFF FLAG SCAN; Mean Corpuscular Hemoglobin 28.3 pg (27.0-33.0); Mean Corpuscular Volume 88.3 fL (80.0-98.0); Mean Platelet Volume 10.3 fL (9.4-12.4); Monocytes Absolute Auto 1.4 X10*3/uL (0.1-1.2); Neutrophils Absolute Auto 6.8 x10*3/uL (2.0-8.3); Neutrophils Percent Auto 68.5 % (45-73); PLT CLUMP 1; Red Cell Distribution Width 15.2 % (11.0-16.0); SCAN SMEAR FLAG 1
[2022-10-14 06:05] LABS: White Blood Count 9.9 X10*3/uL (4.8-10.8)
[2022-10-14] MEDS: Lactated Ringers 1,000 ML 150 ML IVCONT ×3 (06:20→15:31)
[2022-10-14 06:23] LABS: SLIDE REVIEW VERIFIED
[2022-10-14 06:24] LABS: Anion Gap 11 (12-20); Blood Urea Nitrogen 13 mg/dL (9-16); Calcium 8.3 mg/dL (8.4-10.2); Carbon Dioxide 22 mmol/L (22-29); Chloride 110 mmol/L (96-108); Creatinine Clr Calc Pharmacy 69.6; Estimated Glomerular Filt Rate > 60; Glucose Random 106 mg/dL (60-115); Potassium 3.5 mmol/L (3.3-5.1); Sodium 139 mmol/L (135-145)
[2022-10-14 06:50] VITALS: BP 104/59; PULSE 104; RESP 20; TEMP 37.3; O2SAT 97
--- NOTE | 2022-10-14 08:48 | HO.PM.IMPN ---
Subjective Subjective Date of Service: 10/14/22 Interval History: no significant nursing events overnight. Patient reports no new complaints. Constitutional Constitutional: Reports no additional constitutional complaints Cardiovascular Cardiovascular: Reports no additional cardiovascular complaints Respiratory Respiratory: Reports no additional respiratory complaints Gastrointestinal Gastrointestinal: Reports no additional gastrointestinal complaints Genitourinary Genitourinary: Reports no additional male genitourinary complaints Physical Exam Vital Signs: Vital Signs: Last Vital Signs Temp 99.1 F 10/14/22 06:50 Pulse 104 H 10/14/22 06:50 Resp 20 10/14/22 06:50 BP 104/59 L 10/14/22 06:50 Pulse Ox 97 10/14/22 06:50 O2 Del Method Room Air 10/14/22 06:50 BMI result Body Mass Index 24.4 Middle-aged male lying in bed in no distress Neck supple, no JVD Tachycardic with regular rhythm, S1-S2 heard Regular breath sounds bilaterally, no wheezing or crackles appreciated Abdomen soft nontender, no guarding, no rigidity Patient is awake, alert and oriented to self, place, time and person ; no focal motor deficit Skin: As below Psych: Normal mood Skin: Other: has sloughing of 2nd and 3rd toe of the right foot which patient reports new, significant tenderness has warmth, tenderness, erythema, swelling of the left surgical stump see images Objective Data Active Medications Acetaminophen (Acetaminophen 325 Mg Tablet) 650 mg PO Q6H PRN PRN Reason: Pain, Mild (Pain Scale 1-3) Clonazepam (Clonazepam 1 Mg Tablet) 1 mg PO BID [facility] Docusate Sodium (Docusate Sodium 100 Mg Capsule) 100 mg PO DAILY PRN PRN Reason: Constipation Heparin Sodium (Porcine) (Heparin Sodium,Porcine 5,000 Unit/Ml Vial) 5,000 unit SUBCUT Q12H [facility] Last Admin: 10/13/22 22:22 Dose: 5,000 unit Documented By: DAVID Hydroxyzine HCl (Hydroxyzine Hcl 50 Mg Tablet) 50 mg PO BID PRN PRN Reason: Anxiety Cefepime HCl 2 gm/ Sodium (Chloride) 50 mls @ 100 mls/hr IV Q12H [facility] Last Infusion: 10/14/22 05:47 Dose: 0 mls/hr Documented By: ALLEN Lactated Ringer's (Lr) 1,000 mls @ 150 mls/hr IVCONT .Q6H40M [facility] Last Admin: 10/14/22 08:09 Dose: 150 mls/hr Documented By: DORIAN Vancomycin HCl 750 mg/ Sodium (Chloride) 265 mls @ 265 mls/hr IV Q12H [facility] Melatonin (Melatonin 3 Mg Tablet) 6 mg PO BEDTIME PRN PRN Reason: Insomnia Mirtazapine (Mirtazapine 30 Mg Tablet) 30 mg PO BEDTIME [facility] Morphine Sulfate (Morphine Sulfate 4 Mg/Ml Cartridge) 4 mg IVPUSH Q4H PRN; Protocol PRN Reason: Pain, Severe (Pain Scale 7-10) Last Admin: 10/14/22 06:20 Dose: 4 mg Documented By: ALLEN Non-Formulary Medication (Bupropion Hcl) 150 mg PO DAILY [facility] Olanzapine (Olanzapine 10 Mg Tablet) 20 mg PO BEDTIME [facility] Ondansetron HCl (Ondansetron Hcl 4 Mg/2 Ml Vial) 4 mg IVPUSH Q8H PRN PRN Reason: Nausea and Vomiting Pharmacy Consult (Consult Rx Perform Med Rec) 1 each MISCELLANE ONCE PRN PRN Reason: Consult order Pharmacy Consult (Consult Rx Vancomycin Dosing) 1 each MISCELLANE DAILY PRN PRN Reason: Consult order Sertraline HCl (Sertraline Hcl 50 Mg Tablet) 150 mg PO DAILY [facility] Sodium Chloride (0.9 % Sodium Chloride Flush 3 Ml Syringe) 3 ml IVFLUSH QSHIFT [facility] Last Admin: 10/13/22 23:44 Dose: Not Given Documented By: DAVID Non-Admin Reason: IV Running Trazodone HCl (Trazodone Hcl 100 Mg Tablet) 100 mg PO BEDTIME [facility] Labs 10/14/22 05:27 10/14/22 05:27 Labs: Laboratory Results - last 24 hr 10/13/22 10/13/22 10/13/22 17:31 17:31 17:31 MCV 86.5 MCH 28.5 MCHC 33.0 RDW 15.0 Plt Count 323 D MPV 9.0 L Immature Gran % (Auto) 0.4 Neut % (Auto) 69.7 Lymph % (Auto) 15.1 L [place] % (Auto) 13.9 H Eos % (Auto) 0.5 Baso % (Auto) 0.4 Lymph # (Auto) 1.9 [place] # (Auto) 1.8 H Eos # (Auto) 0.1 Baso # (Auto) 0.1 Abs Immat Gran (auto) 0.05 H Absolute Neuts (auto) 9.0 H Absolute Nucleated RBC 0.000 Nucleated RBC % (auto) 0.0 Smear Tech's Comments VERIFIED ESR PT INR Anion Gap 18 Estim Creat Clear Calc 64.1 Estimated GFR 49 Random Glucose 88 Lactic Acid Calcium 9.8 Magnesium 2.0 Total Bilirubin 1.0 AST 34 ALT 15 Alkaline Phosphatase 166 H Total Creatine Kinase 1242 H Troponin I High Sens 12.9 D C-Reactive Protein Total Protein 7.3 Albumin 4.3 Urine Color Urine Appearance Urine pH Ur Specific [place] Urine Protein Urine Glucose (UA) Urine Ketones Urine Blood Urine Nitrite Ur Leukocyte Esterase Urine RBC Urine WBC Ur Squamous Epith Cells Urine Bacteria Hyaline Casts Urine Opiates Screen Urine Fentanyl Screen Ur Barbiturates Screen Ur Phencyclidine Scrn Ur Amphetamines Screen U Benzodiazepines Scrn Urine Cocaine Screen U Marijuana (THC) Screen Ethyl Alcohol COVID-19 (KHUSHI) COVID-[employer] 10/13/22 10/13/22 10/13/22 17:31 17:31 17:31 MCV MCH MCHC RDW Plt Count MPV Immature Gran % (Auto) Neut % (Auto) Lymph % (Auto) [place] % (Auto) Eos % (Auto) Baso % (Auto) Lymph # (Auto) [place] # (Auto) Eos # (Auto) Baso # (Auto) Abs Immat Gran (auto) Absolute Neuts (auto) Absolute Nucleated RBC Nucleated RBC % (auto) Smear Tech's Comments ESR PT 12.5 INR 1.1 Anion Gap Estim Creat Clear Calc Estimated GFR Random Glucose Lactic Acid Calcium Magnesium Total Bilirubin AST ALT Alkaline Phosphatase Total Creatine Kinase Troponin I High Sens C-Reactive Protein 13.72 H Total Protein Albumin Urine Color Urine Appearance Urine pH Ur Specific [place] Urine Protein Urine Glucose (UA) Urine Ketones Urine Blood Urine Nitrite Ur Leukocyte Esterase Urine RBC Urine WBC Ur Squamous Epith Cells Urine Bacteria Hyaline Casts Urine Opiates Screen Urine Fentanyl Screen Ur Barbiturates Screen Ur Phencyclidine Scrn Ur Amphetamines Screen U Benzodiazepines Scrn Urine Cocaine Screen U Marijuana (THC) Screen Ethyl Alcohol < 10 COVID-19 (KHUSHI) Negative COVID-19 [employer] See Note 10/13/22 10/13/22 10/13/22 17:46 20:29 21:23 MCV MCH MCHC RDW Plt Count MPV Immature Gran % (Auto) Neut % (Auto) Lymph % (Auto) [place] % (Auto) Eos % (Auto) Baso % (Auto) Lymph # (Auto) [place] # (Auto) Eos # (Auto) Baso # (Auto) Abs Immat Gran (auto) Absolute Neuts (auto) Absolute Nucleated RBC Nucleated RBC % (auto) Smear Tech's Comments ESR 54 H PT INR Anion Gap Estim Creat Clear Calc Estimated GFR Random Glucose Lactic Acid 1.0 Calcium Magnesium Total Bilirubin AST ALT Alkaline Phosphatase Total Creatine Kinase Troponin I High Sens C-Reactive Protein Total Protein Albumin Urine Color Yellow Urine Appearance Cloudy Urine pH 5.5 Ur Specific [place] >= 1.030 H Urine Protein 30 (1+) H Urine Glucose (UA) Negative Urine Ketones 15 Urine Blood Negative Urine Nitrite Negative Ur Leukocyte Esterase Negative Urine RBC 0-2 Urine WBC 0-5 Ur Squamous Epith Cells 0-2 Urine Bacteria None Seen Hyaline Casts 0-2 Urine Opiates Screen Urine Fentanyl Screen Ur Barbiturates Screen Ur Phencyclidine Scrn Ur Amphetamines Screen U Benzodiazepines Scrn Urine Cocaine Screen U Marijuana (THC) Screen Ethyl Alcohol COVID-19 (KHUSHI) COVID-19 Clin Com 10/13/22 10/13/22 10/14/22 21:23 21:26 05:27 MCV 88.3 MCH 28.3 MCHC 32.0 RDW 15.2 Plt Count TNP MPV 10.3 Immature Gran % (Auto) 0.4 Neut % (Auto) 68.5 Lymph % (Auto) 14.5 L [place] % (Auto) 14.0 H Eos % (Auto) 2.3 Baso % (Auto) 0.3 Lymph # (Auto) 1.4 [place] # (Auto) 1.4 H Eos # (Auto) 0.2 Baso # (Auto) 0.0 Abs Immat Gran (auto) 0.04 H Absolute Neuts (auto) 6.8 Absolute Nucleated RBC 0.000 Nucleated RBC % (auto) 0.0 Smear Tech's Comments VERIFIED ESR PT INR Anion Gap Estim Creat Clear Calc Estimated GFR Random Glucose Lactic Acid Calcium Magnesium Total Bilirubin AST ALT Alkaline Phosphatase Total Creatine Kinase Troponin I High Sens 12.9 C-Reactive Protein Total Protein Albumin Urine Color Urine Appearance Urine pH Ur Specific [place] Urine Protein Urine Glucose (UA) Urine Ketones Urine Blood Urine Nitrite Ur Leukocyte Esterase Urine RBC Urine WBC Ur Squamous Epith Cells Urine Bacteria Hyaline Casts Urine Opiates Screen POSITIVE H Urine Fentanyl Screen Not Detected Ur Barbiturates Screen Not Detected Ur Phencyclidine Scrn Not Detected Ur Amphetamines Screen Not Detected U Benzodiazepines Scrn POSITIVE H Urine Cocaine Screen POSITIVE H U Marijuana (THC) Screen Not Detected Ethyl Alcohol COVID-19 (KHUSHI) COVID-19 Clin Com 10/14/22 05:27 MCV MCH MCHC RDW Plt Count MPV Immature Gran % (Auto) Neut % (Auto) Lymph % (Auto) [place] % (Auto) Eos % (Auto) Baso % (Auto) Lymph # (Auto) [place] # (Auto) Eos # (Auto) Baso # (Auto) Abs Immat Gran (auto) Absolute Neuts (auto) Absolute Nucleated RBC Nucleated RBC % (auto) Smear Tech's Comments ESR PT INR Anion Gap 11 L Estim Creat Clear Calc 69.6 Estimated GFR > 60 Random Glucose 106 Lactic Acid Calcium 8.3 L D Magnesium Total Bilirubin AST ALT Alkaline Phosphatase Total Creatine Kinase Troponin I High Sens C-Reactive Protein Total Protein Albumin Urine Color Urine Appearance Urine pH Ur Specific [place] Urine Protein Urine Glucose (UA) Urine Ketones Urine Blood Urine Nitrite Ur Leukocyte Esterase Urine RBC Urine WBC Ur Squamous Epith Cells Urine Bacteria Hyaline Casts Urine Opiates Screen Urine Fentanyl Screen Ur Barbiturates Screen Ur Phencyclidine Scrn Ur Amphetamines Screen U Benzodiazepines Scrn Urine Cocaine Screen U Marijuana (THC) Screen Ethyl Alcohol COVID-19 (KHUSHI) COVID-19 Clin Com Assessment and Plan (1) Rhabdomyolysis: Status: Acute (2) Cellulitis: Status: Acute Plan 52-year-old male with past medical history of frostbite status post? TMA of the left foot presents to the hospital after walking 10 miles complaining of left foot pain, erythema, found to have rhabdo as well as cellulitis #? acute rhabdomyolysis, nontraumatic, exertional -? likely secondary to muscle injury in the setting of? walking 10 miles on foot -? kidney function at baseline -? treat with IV fluids -? follow CPK # cellulitis of left foot -? at the site of recent TMA -? will treat with IV antibiotics -? infectious disease consult pending -? Will hold off on MRI until patient evaluated by Infectious Disease -? wound care -? follow cultures # mood disorder -resume home mood stabilizers # substance use disorder -consult addiction team -monitor for withdrawal # normocytic anemia -hb above transfusion threshold ?DVT prophylaxis:? Lovenox ?given patient's need for IV fluids for rhabdo, as well as? IV antibiotics patient will require 2 nights inpatient hospital stay for further management and monitoring Time Spent With Patient Time: Total time managing care of this patient today ____ minutes. Quality Stroke Does the patient have a stroke diagnosis?: No VTE Prior VTE?: No VTE Risk Level:: Medical - moderate - high VTE Device Contraindication: Treatment Not Indicated VTE Drug Contraindication: N/A - Med Ordered
[2022-10-14] MEDS: Sertraline HCL 50 MG TABLET 150 MG PO (09:34)
[2022-10-14] MEDS: clonazePAM 1 MG TABLET PO ×2 (09:35→20:21)
[2022-10-14] MEDS: Heparin Sodium,Porcine 5,000 UNIT/ML VIAL 5000 UNIT SUBCUT ×2 (09:35→21:39)
--- NOTE | 2022-10-14 10:32 | MHC.RECOVRN ---
This writer editor met with patient after receiving addiction consult. Patient reports no illicit opiate use, patient states use of GLENDY occasionally. Reviewed UDS positive for opiates. Patient denied withdrawal s/s. Declined LAURIE supports. Patient encouraged to let RN know if feels any s/s of withdrawal and the Addiction/Recovery team is available to help alleviate s/s with medications like MTD. Patient verbalized understanding.
[2022-10-14] MEDS: vancomycin HCL 750 MG in 0.9 % Sodium Chloride 250 ML 265 MG IV (10:46)
[2022-10-14 15:39] VITALS: BP 118/63; PULSE 101; RESP 18; TEMP 37.5; O2SAT 97
[2022-10-14] MEDS: Acetaminophen 325 MG TABLET 650 MG PO (17:28)
[2022-10-14 19:39] VITALS: BP 115/64; PULSE 99; RESP 18; TEMP 37.4; O2SAT 97
[2022-10-14] MEDS: traZODone HCL 100 MG TABLET PO (20:20)
[2022-10-14] MEDS: OLANZapine 10 MG TABLET 20 MG PO (20:20)
[2022-10-14] MEDS: Mirtazapine 30 MG TABLET PO (20:21)
--- NOTE | 2022-10-14 20:29 | PM.EVENT ---
Event Note Date of Service: 10/14/22 Event Note: Addiction consult placed Patient seen by barrer and tacker Please see note dated 10/14/22 Time Spent With Patient Time: Total time managing care of this patient today ____ minutes.
[2022-10-14] MEDS: 0.9 % Sodium Chloride Flush 3 ML SYRINGE IVFLUSH (21:40)
[2022-10-14 21:51] LABS: Vancomycin Random 12.5 mcg/mL (15-20)
[2022-10-14] MEDS: vancomycin HCL 1,000 MG in 0.9 % Sodium Chloride 250 ML 270 MG IV (22:57)
--- NOTE | 2022-10-14 23:31 | P.CNID_ITS ---
History of Present Illness Data of Consult Service Date: 10/14/22 Requesting physician: Rodrick Rascon Primary Care Provider: Unknown Physician HPI Reason for consult: feet redness He presents to hospital foot sore after walking ten miles. He is homeless and was just released from facility. He was found to have rhabdomyolysis and some OLIVIA and reports walked 10 miles. He has had amputation of right great toe left foot TMA and followed with Dr Greer He has ESR only 50 and no fever or leukocytosis of significance. Review of Systems 2 Review of Systems: Yes all other systems are reviewed and are negative PMFSH Past Medical History Medical History Anxiety Chronic post-traumatic stress disorder (PTSD) Depression Mood disorder Opioid dependence on agonist therapy Suicidal ideation Family History Family history: reviewed and not pertinent Surgical History Surgical History History of transmetatarsal amputation of left foot (09/20/22) Social History Social History Household Members: Other Housing: Homeless Do you presently have visiting nurse or other home services: No Alcohol intake: never Patient Tobacco Use Status: Current someday Tobacco user Tobacco use type: Cigarette Cigarette Packs Per Day: 0.5 Cigarettes Per Day: 5 Years Smoked: 20 Smoked in Last 30 Days: Yes e-Cigarette/Vaping Use: Never Used Patient Interested in Nicotine Replacement: No Second Hand Smoke Exposure: No Use of substances other than those prescribed or required for medical reasons: No Substance Use Type: Crack/Cocaine and Opiates Currently Displaying Signs/Symptoms of Drug Intoxication Withdrawal: No Have you been hit, kicked, punched, or otherwise hurt by someone within the past year? If so, by whom?: No Do you feel safe in your current relationship?: No Current Relationship Is there a partner from a previous relationship who is making you feel unsafe now?: No Are you made to feel afraid or neglected: No Advance Directives: Yes Advance Directives on File: Yes Advance Directives Date on File: 09/27/22 Do you have thoughts of harming others: None Do you have a plan to hurt others: No Plan Recently lost weight without trying: No Eating poorly because of decreased appetite: No Nutrition Risks: No Nutritional Risk service: No Current occupational status: employed Sexual orientation: Straight/Heterosexual Meds Allergies Allergy/AdvReac Type Severity Reaction Status Date / Time No Known Allergies Allergy Verified 10/03/22 14:56 [No Known Allergies*] Active Medications: Current Medications Acetaminophen (Acetaminophen 325 Mg Tablet) 650 mg PO Q6H PRN PRN Reason: Pain, Mild (Pain Scale 1-3) Last Admin: 10/14/22 17:28 Dose: 650 mg Clonazepam (Clonazepam 1 Mg Tablet) 1 mg PO BID [facility] Last Admin: 10/14/22 20:21 Dose: 1 mg Docusate Sodium (Docusate Sodium 100 Mg Capsule) 100 mg PO DAILY PRN PRN Reason: Constipation Heparin Sodium (Porcine) (Heparin Sodium,Porcine 5,000 Unit/Ml Vial) 5,000 unit SUBCUT Q12H [facility] Last Admin: 10/14/22 21:39 Dose: 5,000 unit Hydroxyzine HCl (Hydroxyzine Hcl 50 Mg Tablet) 50 mg PO BID PRN PRN Reason: Anxiety Lactated Ringer's (Lr) 1,000 mls @ 150 mls/hr IVCONT .Q6H40M [facility] Last Infusion: 10/14/22 22:23 Dose: Infused Vancomycin HCl 1,000 mg/ (Sodium Chloride) 270 mls @ 270 mls/hr IV Q12H [facility] Last Admin: 10/14/22 22:57 Dose: 270 mls/hr Melatonin (Melatonin 3 Mg Tablet) 6 mg PO BEDTIME PRN PRN Reason: Insomnia Mirtazapine (Mirtazapine 30 Mg Tablet) 30 mg PO BEDTIME [facility] Last Admin: 10/14/22 20:21 Dose: 30 mg Morphine Sulfate (Morphine Sulfate 4 Mg/Ml Cartridge) 4 mg IVPUSH Q4H PRN; Protocol PRN Reason: Pain, Severe (Pain Scale 7-10) Last Admin: 10/14/22 21:39 Dose: 4 mg Olanzapine (Olanzapine 10 Mg Tablet) 20 mg PO BEDTIME [facility] Last Admin: 10/14/22 20:20 Dose: 20 mg Ondansetron HCl (Ondansetron Hcl 4 Mg/2 Ml Vial) 4 mg IVPUSH Q8H PRN PRN Reason: Nausea and Vomiting Pharmacy Consult (Consult Rx Perform Med Rec) 1 each MISCELLANE ONCE PRN PRN Reason: Consult order Pharmacy Consult (Consult Rx Vancomycin Dosing) 1 each MISCELLANE DAILY PRN PRN Reason: Consult order Sertraline HCl (Sertraline Hcl 50 Mg Tablet) 150 mg PO DAILY [facility] Last Admin: 10/14/22 09:34 Dose: 150 mg Sodium Chloride (0.9 % Sodium Chloride Flush 3 Ml Syringe) 3 ml IVFLUSH QSHIFT [facility] Last Admin: 10/14/22 21:40 Dose: 3 ml Trazodone HCl (Trazodone Hcl 100 Mg Tablet) 100 mg PO BEDTIME [facility] Last Admin: 10/14/22 20:20 Dose: 100 mg Home Medications Medication Instructions Recorded Confirmed Last Taken Type bupropion HCl 150 mg tablet,12 hr 150 mg PO DAILY 08/31/22 10/13/22 10/13/22 History sustained-release clonazepam 1 mg tablet 1 mg PO BID 08/31/22 10/13/22 10/13/22 History hydroxyzine pamoate 50 mg capsule 50 mg PO BID PRN Anxiety 08/31/22 10/13/22 10/13/22 History mirtazapine 30 mg tablet 30 mg PO BEDTIME 08/31/22 10/13/22 10/12/22 History olanzapine 20 mg tablet 20 mg PO BEDTIME 08/31/22 10/13/22 10/12/22 History sertraline 100 mg tablet 150 mg PO DAILY 08/31/22 10/13/22 10/13/22 History trazodone 50 mg tablet 100 mg PO BEDTIME 08/31/22 10/13/22 10/12/22 History Physical Exam Vital Signs: Vital Signs: Last Vital Signs Temp 99.3 F 10/14/22 19:39 Pulse 99 10/14/22 19:39 Resp 18 10/14/22 19:39 BP 115/64 10/14/22 19:39 Pulse Ox 97 10/14/22 19:39 O2 Del Method Room Air 10/14/22 19:39 BMI result Body Mass Index 24.4 Extrem: Other: bruised /redness left TMA site slight redness right great toe amputation site Results Labs 10/14/22 05:27 10/14/22 05:27 Labs: Short CBC 10/14/22 Range/Units 05:27 WBC 9.9 (4.8-10.8) X10*3/uL Hgb 8.2 L (14.0-18.0) g/dl Hct 25.6 L (42.0-52.0) % Plt Count TNP BMP 10/14/22 05:27 Sodium 139 Potassium 3.5 Chloride 110 H Carbon Dioxide 22 BUN 13 Creatinine 1.24 Calcium 8.3 L D Microbiology Microbiology Results: Microbiology 10/13/22 20:29 Blood - Venous Blood Culture - Preliminary No growth after 24 hours. 10/13/22 20:28 Blood - Venous Blood Culture - Preliminary No growth after 24 hours. Assessment and Plan (1) History of transmetatarsal amputation of left foot: Status: Acute He has primary trauma to feet from walking as well as elevated CK He has no obvious signs of OM with no elevated ESR or WBC and is not diabetic so less likely There are no obvious organisms (2) Cellulitis: Status: Acute (3) Rhabdomyolysis: Status: Acute (4) Frostbite of feet, bilateral: Status: Acute Plan Would not get MRI since may be difficult to evaluate with probable bone edema due to trauma. He has some irritation to wounds since not healed yet. Wound Care clinic. Po Doxycycline 100 mg bid for 10 days unless cultures dictate otherwise. Time Spent With Patient Time: Total time managing care of this patient today ____ minutes.
[2022-10-15] MEDS: Lactated Ringers 1,000 ML 150 ML IVCONT ×2 (00:27→06:46)
[2022-10-15 03:57] VITALS: BP 122/70; PULSE 112; RESP 16; TEMP 36.3; O2SAT 98
[2022-10-15 05:56] LABS: MANUAL DIFF FLAG NO
[2022-10-15] MEDS: Morphine Sulfate 4 MG/ML CARTRIDGE IVPUSH ×2 (05:57→10:10)
[2022-10-15 06:05] LABS: Basophils Percent Auto 0.3 % (0-2); Eosinophils Absolute Auto 0.2 X10*3/uL (0.0-0.4); Eosinophils Percent Auto 2.3 % (0-4); Hematocrit 27.4 % (42.0-52.0); Hemoglobin 8.7 g/dl (14.0-18.0); Imm Gran Abs Auto 0.03 X10*3/uL (0.00-0.03); Imm Gran Pct Auto 0.3 % (0.0-0.4); Lymphocytes Absolute Auto 1.6 X10*3/uL (1.2-4.9); Lymphocytes Percent Auto 16.1 % (20-40); Mean Corpuscular HGB Conc 31.8 g/dl (31.0-36.0); Mean Corpuscular Hemoglobin 27.9 pg (27.0-33.0); Mean Corpuscular Volume 87.8 fL (80.0-98.0); Mean Platelet Volume 9.6 fL (9.4-12.4); Monocytes Percent Auto 10.1 % (2-11); Neutrophils Absolute Auto 7.2 x10*3/uL (2.0-8.3); Neutrophils Percent Auto 70.9 % (45-73); Platelet Count 298 X10*3/uL (160-400); Red Blood Count 3.12 X10*6/uL (4.60-5.80); Red Cell Distribution Width 15.2 % (11.0-16.0); White Blood Count 10.1 X10*3/uL (4.8-10.8)
[2022-10-15 06:31] LABS: Anion Gap 14 (12-20); Blood Urea Nitrogen 6 mg/dL (9-16); Calcium 8.6 mg/dL (8.4-10.2); Carbon Dioxide 21 mmol/L (22-29); Chloride 107 mmol/L (96-108); Creatinine Clr Calc Pharmacy 79.2; Estimated Glomerular Filt Rate > 60; Glucose Random 105 mg/dL (60-115); Potassium 3.2 mmol/L (3.3-5.1); Sodium 139 mmol/L (135-145)
[2022-10-15 08:03] VITALS: BP 122/73; PULSE 106; RESP 18; TEMP 36.7; O2SAT 97
[2022-10-15] MEDS: clonazePAM 1 MG TABLET PO (08:38)
[2022-10-15] MEDS: Sertraline HCL 50 MG TABLET 150 MG PO (08:38)
[2022-10-15] MEDS: Heparin Sodium,Porcine 5,000 UNIT/ML VIAL 5000 UNIT SUBCUT (08:38)
[2022-10-15] MEDS: 0.9 % Sodium Chloride Flush 3 ML SYRINGE IVFLUSH (08:39)
--- NOTE | 2022-10-15 09:16 | P.DS_ITS ---
DS: Providers Provider Date of Service: 10/15/22 Date of admission: 10/13/22 21:32 Primary care physician: Unknown Physician Consults: 10/13/22 21:31 Consult to Infectious Diseases Routine Consulting Provider: [facility] [place] Infectious Disease Reason for consultation: recent [id number] wound 10/14/22 08:54 Addiction Medicine Routine Consulting Provider: Addiction Covering Reason for consultation: susbtance use disorder DS: Diagnosis Discharge Diagnosis (1) Rhabdomyolysis: Status: Acute (2) Cellulitis: Status: Acute (3) History of transmetatarsal amputation of left foot: Status: Acute (4) Frostbite of feet, bilateral: Status: Acute DS: Summary Hospital Course Hospital Course: HPI: 52-year-old male with past medical history of? anxiety depression, opiate use disorder, recent status post TMA of left foot and great toe of right foot on 09/20,? OLIVIA due to rhabdo, who was discharged from the hospital on 09/26 after undergoing TMA and right toe amputation and discharged to [facility] returns to the hospital with complaints of worsening foot wound and swelling.? Patient reports that he was very unhappy with [facility], left yesterday, and had a 10 mi walk due to him being homeless.? He then developed significant pain, swelling in his left foot, draining blood, having chills, no fever, denies any chest pain, no shortness of breath, no abdominal pain nausea or vomiting, no diarrhea constipation, no urinary symptoms and no lower extremity edema.? Comes into the hospital also complaining of generalized weakness.? He remains homeless but denies any substance abuse On arrival to the ED patient hemodynamically stable with a slightly elevated heart rate of 109 lab significant for WBC count of 12.9, CPK of 1200, creatinine of 1.5 which is around his baseline, CRP of 13.7, ESR of 50, UA negative, UDS positive for opioids, benzos, and cocaine X-ray of the foot shows diffuse soft tissue swelling in the left foot Patient started on IV? fluids and antibiotics and will be admitted for further management Hospital course: Patient was initiated on IV fluid resuscitation for acute rhabdomyolysis. Symptoms improved and creatinine kinase trended down prior to discharge. He was initiated on IV vancomycin for nonpurulent cellulitis of left foot. Infectious Disease was consulted recommended discharged with p.o. doxycycline. No need for MRI as per ID. Will discharge patient with p.o. doxycycline 100 mg b.i.d. for 10 days. Follow-up with PCP and [facility] Care [facility]. Also consulted Addiction Medicine for substance use disorder. Status at Discharge Functional status at discharge: independent ambulation Overall status at discharge: patient is progressing back to baseline Time Spent with Patient Time attestation: Total time managing care of this patient today ____ minutes. Discharge coordination time: Greater than 30 minutes Quality: Safe Use of Opioids Does Pt have an Active Cancer Diagnosis on the Problem List?: No Quality: Stroke Does the patient have a stroke diagnosis?: No Physical Exam Vital Signs: Vital Signs: Last Vital Signs Temp 98.1 F 10/15/22 08:03 Pulse 106 H 10/15/22 08:03 Resp 18 10/15/22 08:03 BP 122/73 10/15/22 08:03 Pulse Ox 97 10/15/22 08:03 O2 Del Method Room Air 10/15/22 08:03 BMI result Body Mass Index 24.4 General: cooperati ve and no acute di stress? Orientatio n/consciousness: p atient oriented x3 Eyes:?? General: appearanc e normal, both eye s and all related structures? Pupils : Equal, round and reactive pupils p resent Resp:?? Effort & Inspectio n: normal respirat ory effort, able t o speak in complet e sentences and ab normal respiratory pattern? Ausculta tion: clear to aus cultation bilatera lly Cardio:?? Rate: regular rate ? Rhythm: regular rhythm GI:?? Palpation (GI): So ft to palpation? A uscultation: joselo l bowel sounds Skin:?? Other: ?has sloug mal of 2nd and 3r d toe of the right foot which patien t reports new,? si gnificant tenderne ss ?has warmth, te nderness, erythema , swelling of the left surgical stum p DS: Data Data Completed and Pending Completed studies during hospitalization [Text1]: Procedures Detachment at Left Foot, Complete 1st Ray, Open Approach (08/30/22) Detachment at Left Foot, Complete 2nd Ray, Open Approach (08/30/22) Detachment at Left Foot, Complete 3rd Ray, Open Approach (08/30/22) Detachment at Left Foot, Complete 4th Ray, Open Approach (08/30/22) Detachment at Left Foot, Complete 5th Ray, Open Approach (08/30/22) Detachment at Right 1st Toe, Complete, Open Approach (08/30/22) Insertion of Infusion Device into Superior Vena Cava, Percutaneous Approach (08/30/22) Performance of Urinary Filtration, Intermittent, Less than 6 Hours Per Day (08/30/22) Ultrasonography of Superior Vena Cava, Guidance (08/30/22) Labs on day of discharge: Laboratory Results - last 24 hr 10/14/22 10/15/22 10/15/22 21:24 05:24 05:24 WBC 10.1 RBC 3.12 L Hgb 8.7 L Hct 27.4 L MCV 87.8 MCH 27.9 MCHC 31.8 RDW 15.2 Plt Count 298 MPV 9.6 Immature Gran % (Auto) 0.3 Neut % (Auto) 70.9 Lymph % (Auto) 16.1 L [place] % (Auto) 10.1 Eos % (Auto) 2.3 Baso % (Auto) 0.3 Lymph # (Auto) 1.6 [place] # (Auto) 1.0 Eos # (Auto) 0.2 Baso # (Auto) 0.0 Abs Immat Gran (auto) 0.03 Absolute Neuts (auto) 7.2 Absolute Nucleated RBC 0.000 Nucleated RBC % (auto) 0.0 Sodium 139 Potassium 3.2 L Chloride 107 Carbon Dioxide 21 L Anion Gap 14 BUN 6 L Creatinine 1.09 Estim Creat Clear Calc 79.2 Estimated GFR > 60 Random Glucose 105 Calcium 8.6 Total Creatine Kinase 361 H Random Vancomycin 12.5 L 10/15/22 05:24 WBC RBC Hgb Hct MCV MCH MCHC RDW Plt Count MPV Immature Gran % (Auto) Neut % (Auto) Lymph % (Auto) [place] % (Auto) Eos % (Auto) Baso % (Auto) Lymph # (Auto) [place] # (Auto) Eos # (Auto) Baso # (Auto) Abs Immat Gran (auto) Absolute Neuts (auto) Absolute Nucleated RBC Nucleated RBC % (auto) Sodium Potassium Chloride Carbon Dioxide Anion Gap BUN Creatinine Cancelled Estim Creat Clear Calc Cancelled Estimated GFR Cancelled Random Glucose Calcium Total Creatine Kinase Random Vancomycin Preliminary micro results at discharge 10/13/22 20:29 Blood Culture - Preliminary Blood - Venous No growth after 24 hours. 10/13/22 20:28 Blood Culture - Preliminary Blood - Venous No growth after 24 hours. Imaging Chest x-ray: Radiologist's impression: ITS Impressions Abdomen/Pelvis CT 10/13/22 19:29 IMPRESSION: 1. No acute abnormalities identified in the chest, abdomen, and pelvis. 2. Mild centrilobular pulmonary emphysema. Chest CT 10/13/22 19:29 IMPRESSION: 1. No acute abnormalities identified in the chest, abdomen, and pelvis. 2. Mild centrilobular pulmonary emphysema. Cervical Spine CT 10/13/22 19:30 IMPRESSION: 1. No acute intracranial pathology. Scattered areas of chronic encephalomalacia in the cerebellar hemispheres, right frontal periventricular white matter, and in the globus pallidus of the basal ganglia bilaterally. 2. No evidence of acute cervical spine traumatic injury. Head CT 10/13/22 19:30 IMPRESSION: 1. No acute intracranial pathology. Scattered areas of chronic encephalomalacia in the cerebellar hemispheres, right frontal periventricular white matter, and in the globus pallidus of the basal ganglia bilaterally. 2. No evidence of acute cervical spine traumatic injury. Foot X-Ray 10/13/22 20:59 IMPRESSION: 1. No acute fracture or malalignment in the feet. No radiographic evidence of osteomyelitis. 2. Status post transmetatarsal amputations in the left foot and great toe amputation of the right foot.. 3. Diffuse soft tissue swelling in the left foot. Foot X-Ray 10/13/22 21:00 IMPRESSION: 1. No acute fracture or malalignment in the feet. No radiographic evidence of osteomyelitis. 2. Status post transmetatarsal amputations in the left foot and great toe amputation of the right foot.. 3. Diffuse soft tissue swelling in the left foot. Discharge Plan Discharge Anticipated Discharge Date/Time: 10/15/22 09:19 Patient Disposition: Home, Self-Care Discharge Diagnosis: acute rhabdomyolysis, nontraumatic, exertional cellulitis of left foot Referrals: Physician,Unknown J [Primary Care Provider] - 1 Week Discharge Medications: New doxycycline hyclate 100 mg capsule 100 mg PO BID 9 Days Qty: 18 0RF Continued bupropion HCl 150 mg tablet sustained-release 12 hr 150 mg PO DAILY trazodone 50 mg tablet 100 mg PO BEDTIME sertraline 100 mg tablet 150 mg PO DAILY clonazepam 1 mg tablet 1 mg PO BID hydroxyzine pamoate 50 mg capsule 50 mg PO BID PRN (Reason: Anxiety) mirtazapine 30 mg tablet 30 mg PO BEDTIME olanzapine 20 mg tablet 20 mg PO BEDTIME Discharge Orders: Discharge Order (Routine); Ordered 10/15/22 Ordered By: Ky Woodruff Diet: Regular diet Activity on Discharge: As tolerated Stand Alone Forms: Patient Portal Discharge page Care Plan Goals: Continue p.o. doxycycline 100 mg b.i.d. x9 days Health Concerns: nonpurulent cellulitis of left foot Plan of Treatment: follow-up with Wound Care Clinic follow-up with PCP in 1 week Assessment: as above
[2022-10-15] MEDS: Potassium Chloride Packet 20 MEQ PACKET 40 MEQ PO (10:12)
--- NOTE | 2022-10-15 10:23 | MHC.CM.PN ---
PT REPORTS HE LEFT [facility] A FEW DAYS AGO AND THEN FELL SEVERAL TIMES PT IS HOMELESS AND REPORTS HE SLEEPS ON THE STREETS HE REFUSES REFERRALS TO STR OR OUTPATIENT PHYSICAL THERAPY HE SAYS HE DID NOT LIKE PT PT DECLINES TO COMPLETE A HCP HE IS NOT COVID VAX PCP AT [facility] PT IS REQUESTING A LYFT TO [employer] IN [place] TO BUY STURDY SHOES HE WILL TAKE THE BUS FROM THERE PT WILL NEED DRESSING SUPPLIES AT [place] A SCIPT FOR A WALKER WAS DISCUSSED, HOWEVER PT AGAIN DECLINES
== END 2022-10-15 15:24 | disposition home or self-care (01) | DRG 349 ==
LOC: HO.ED 21:16 → HO.EDOVER 21:48 → HO.S3 22:41
PROVIDERS: Physician Assistant; Admitting Provider Internal Medicine; Emergency Provider Emergency Medicine; PCP Internal Medicine; Visit Provider Student in an Organized Health Care Education/Training Program
DX: T87.44 Infection of amputation stump, left lower extremity (principal); M62.82 Rhabdomyolysis; L03.116 Cellulitis of left lower limb; Y83.5 Amputation of limb(s) as the cause of abnormal reaction of the patient, or of later complication, without mention of misadventure at the time of the procedure; F43.12 Post-traumatic stress disorder, chronic; F41.9 Anxiety disorder, unspecified; F32.A Depression, unspecified; F11.20 Opioid dependence, uncomplicated; T33.822S Superficial frostbite of left foot, sequela; T33.821S Superficial frostbite of right foot, sequela; Z59.02 Unsheltered homelessness; F17.210 Nicotine dependence, cigarettes, uncomplicated; Z71.6 Tobacco abuse counseling; Z20.822 Contact with and (suspected) exposure to COVID-19; Z79.899 Other long term (current) drug therapy
CPT/HCPCS: 36415; 70450; 71260; 72125; 73630; 74177; 80048; 80053; 80202; 80307; 81001; 82550; 82565; 83605; 83735; 84484; 85025; 85610; 85652; 86140; 87040; 87635; 93005; 99285; J0692; J0696; J1643; J2270; J3370; Q9967

== ENCOUNTER 2022-10-16 17:12 | Emergency (ER) | payer OTHER, SELFPAY ==
--- NOTE | ~2022-10-16 | XR_ITS ---
EXAMINATION: XR FOOT, LEFT CLINICAL INFORMATION: Osteomyelitis COMPARISON: 10/13/2022 TECHNIQUE: AP, lateral, and oblique views of the left foot. FINDINGS: Again note is made of transmetatarsal amputations of the first through fifth digits. Extensive surrounding soft tissue swelling is seen. There is bony callus formation and heterotopic ossification along the distal aspect of the remaining metatarsals. There is subtle lucency along the distal aspect of the second metatarsal cortex and fifth metatarsal medullary portion. Subtle osteomyelitis would be difficult to exclude in this setting. No radiopaque foreign body or soft tissue gas. XR/XR foot LT 2V IMPRESSION: 1. Extensive soft tissue swelling. Subtle lucency along the distal aspect of the second and fifth metatarsal cortex. Subtle osteomyelitis would be difficult to exclude in this setting. MRI would be more sensitive. 2. Chronic appearing and postoperative changes otherwise as described above.
[2022-10-16 17:16] VITALS: BP 132/84; PULSE 112; RESP 19; TEMP 36.6; O2SAT 97; BMI 29.5
[2022-10-16] MEDS: Naloxone HCl Nasal 4 MG SPRAY NOSTRILALT (17:23)
--- NOTE | 2022-10-16 17:42 | PC.NURSE ---
pt found unresponsive in parking lot, given 4mg nasal Narcan by triage, given another 4mg nasal Narcan in rm 19. pt sao2 mid 50s, proceeded to ambu bag pt. provider Gibran FONG at bedside. awoke after 2nd dose of narcan. pt denies any drug use. reports he was coming here for his foot - recently here for same. pts changed over and pts locked in decon
--- NOTE | 2022-10-16 17:48 | ED_ITS ---
HPI - General Adult General Chief complaint: Overdose Stated complaint: OD Time Seen by Provider: 10/16/22 17:30 Source: patient Mode of arrival: ambulatory Limitations: no limitations History of Present Illness HPI narrative: 52 yold male presents to the ED for overdose. Patient overdosed on one bag of heroin. Patient states he sniffed one bag of heroine. Patient does not want detox. patient denies any complaints. Patient recently discharged yesterday from hospital for left foot cellulitis. Patient was prescribed doxycycline and cephalexin Related Data Home Medications Medication Instructions Recorded Confirmed bupropion HCl 150 mg tablet,12 hr 150 mg PO DAILY 08/31/22 10/13/22 sustained-release clonazepam 1 mg tablet 1 mg PO BID 08/31/22 10/13/22 hydroxyzine pamoate 50 mg capsule 50 mg PO BID PRN Anxiety 08/31/22 10/13/22 mirtazapine 30 mg tablet 30 mg PO BEDTIME 08/31/22 10/13/22 olanzapine 20 mg tablet 20 mg PO BEDTIME 08/31/22 10/13/22 sertraline 100 mg tablet 150 mg PO DAILY 08/31/22 10/13/22 trazodone 50 mg tablet 100 mg PO BEDTIME 08/31/22 10/13/22 Previous Rx's Medication Instructions Recorded cane #1 ea 10/15/22 doxycycline hyclate 100 mg capsule 100 mg PO BID 9 days #18 caps 10/15/22 Allergies Allergy/AdvReac Type Severity Reaction Status Date / Time No Known Allergies Allergy Verified 10/03/22 14:56 [No Known Allergies*] Review of Systems Review of Systems: overdose Yes all other systems are reviewed and are negative PMFSH Past Medical History Medical History Anxiety Chronic post-traumatic stress disorder (PTSD) Depression Mood disorder Opioid dependence on agonist therapy Suicidal ideation Surgical History History of transmetatarsal amputation of left foot (09/20/22) Social History Social History Household Members: Other Housing: Homeless Do you presently have visiting nurse or other home services: No Alcohol intake: never Patient Tobacco Use Status: Current someday Tobacco user Tobacco use type: Cigarette Cigarette Packs Per Day: 0.5 Cigarettes Per Day: 5 Years Smoked: 20 Smoked in Last 30 Days: Yes e-Cigarette/Vaping Use: Never Used Second Hand Smoke Exposure: No Use of substances other than those prescribed or required for medical reasons: No Substance Use Type: Crack/Cocaine and Opiates Advance Directives: Yes Advance Directives on File: Yes Advance Directives Date on File: 09/27/22 service: No Current occupational status: unemployed Sexual orientation: Straight/Heterosexual Physical Exam ED Vital Signs: Vital Signs - 24 hr 10/16/22 17:16 10/16/22 19:07 10/16/22 21:30 Temperature 98 F 98.5 F 98.0 F Pulse Rate 112 H 102 H 93 Respiratory Rate 19 16 18 Blood Pressure 132/84 121/83 100/67 Pulse Oximetry 97 96 96 Oxygen Delivery Method Room Air Room Air Room Air BMI result Body Mass Index 29.5 Const General: cooperative, healthy appearing, comfortable, no acute distress, well developed, alert, awake and Physically active Orientation/consciousness: oriented to person, oriented to place, oriented to time and patient oriented x3 HENMT Head: Yes normal to inspection, Yes No palpable skull fracture present, Yes normocephalic, Yes atraumatic and No abrasion Eyes General: appearance normal, both eyes and all related structures Neck Neck: Yes normal visual inspection, Yes full ROM, Yes no lymphadenopathy, Yes no meningeal signs, Yes trachea midline, Yes supple, No anterior neck swelling and No tender Chest Chest palpation & inspection: normal inspection of the chest and normal palpation of entire chest wall Resp Effort & Inspection: normal respiratory effort and able to speak in complete sentences Auscultation: clear to auscultation bilaterally Cardio Jugular venous distension: no JVD Heart sounds: S1 normal heart sound present and S2 normal heart sound present GI Inspection: Yes normal to inspection and No abdominal wall ecchymosis Palpation (GI): Soft to palpation, not firm, nontender, no guarding and not rigid General: No CVA tenderness and Yes no CVA tenderness Back/Spine/Pelvis Back: no CVA tenderness, No CVA tenderness and No back tenderness Skin General skin exam: no rashes or lesions noted and elasticity normal Neuro General: oriented to person, oriented to place, oriented to time, patient oriented x3, tone normal, moves all extremities, Normal light touch and pain sensation, no meningeal signs, no focal motor deficits, CN's II-XI intact bilaterally and normal sensation to monofilament Extrem Other: Mild left foot erythema. no pus drainage or foul odor. no warmth of redness. Psych Appearance: disheveled Course Course Course Narrative: Patient overdosed. Left foot does not look horrific and as per DR. Thorne who saw patient on the 13 of october he states also foot does not look bad. Due to patient substance abuse and homeless may not be compliant with oral antibiotics he was dischaged. If labs worsened with discuss possible admission with hospitalist. Reevaluation(s) Reevaluation #1: Case was discussed with Dr. Woodruff, the hospitalist, and he evaluated patient's foot, labs, xray reading, and prior inpatient records and he states patient does not need admission. Patient already seen by I&D during recent admission and just recommend oral antibiotics and not concerned for osteomyltieits, and does not need MRI. Patient was discharged from hospitalist yesterday. Patietn informed to continue using antiviotics. patient does not want detox Time: 21:14 Medications Administered Discontinued Medications Generic Name Dose Route Start Last Admin Trade Name Freq PRN Reason Stop Dose Admin Naloxone HCl 4 mg 10/16/22 17:21 10/16/22 17:23 Naloxone Hcl Nasal 4 Mg [place] NOSTRILALT 10/16/22 17:22 4 mg ONCE ONE Administration Medical Decision Making Medical Decision Making [facility] Narrative: 52 yold male presents to the ED for overdose from using heroin. patient does not want detox. Left foot cellulits is being treated with oral antibiotics. Hospitalists does not recommend any admssion. Labs are at baseline. Patient Admission/Observation Consideration of admission/observation: Escalation of care including admission/observation considered Consult Healthcare Provider Management of the patient was discussed with: Hospitalist (Dr. Woodruff) Lab Data [facility] Lab Attestation statement: I reviewed the patient's lab results. 10/16/22 20:23 10/16/22 19:35 Labs: Lab Results 10/16/22 10/16/22 10/16/22 Range/Units 18:33 18:34 19:35 WBC (4.8-10.8) X10*3/uL RBC (4.60-5.80) X10*6/uL Hgb (14.0-18.0) g/dl Hct (42.0-52.0) % MCV (80.0-98.0) fL MCH (27.0-33.0) pg MCHC (31.0-36.0) g/dl RDW (11.0-16.0) % Plt Count (160-400) X10*3/uL MPV (9.4-12.4) fL Immature Gran % (Auto) (0.0-0.4) % Neut % (Auto) (45-73) % Lymph % (Auto) (20-40) % [place] % (Auto) (2-11) % Eos % (Auto) (0-4) % Baso % (Auto) (0-2) % Lymph # (Auto) (1.2-4.9) X10*3/uL [place] # (Auto) (0.1-1.2) X10*3/uL Eos # (Auto) (0.0-0.4) X10*3/uL Baso # (Auto) (0.0-0.2) X10*3/uL Abs Immat Gran (auto) (0.00-0.03) X10*3/uL Absolute Neuts (auto) (2.0-8.3) x10*3/uL Absolute Nucleated RBC (0.0-0.012) X10*3/uL Nucleated RBC % (auto) (0.0-0.2) /100WBC ESR 88 H (0-15) MM/HR PT (10.0-13.1) SEC INR (0.9-1.1) APTT (26.0-36.4) SEC Sodium 142 (135-145) mmol/L Potassium 3.3 (3.3-5.1) mmol/L Chloride 104 (96-108) mmol/L Carbon Dioxide 27 (22-29) mmol/L Anion Gap 14 (12-20) BUN 9 (9-16) mg/dL Creatinine 1.24 (0.5-1.4) mg/dL Estim Creat Clear Calc 77.5 Estimated GFR > 60 Random Glucose 98 (60-115) mg/dL Lactic Acid 1.4 (0.5-2.0) mmol/L Calcium 9.1 (8.4-10.2) mg/dL Total Bilirubin 0.3 (0.0-1.0) mg/dL AST 26 (5-37) U/L ALT 17 (0-40) U/L Alkaline Phosphatase 113 (39-117) U/L C-Reactive Protein 20.43 H (< or = 0.50) mg/dL Total Protein 6.6 (6.5-8.0) g/dL Albumin 3.8 (3.5-5.0) g/dL 10/16/22 10/16/22 Range/Units 19:47 20:23 WBC 11.9 H (4.8-10.8) X10*3/uL RBC 2.85 L (4.60-5.80) X10*6/uL Hgb 8.1 L (14.0-18.0) g/dl Hct 24.7 L (42.0-52.0) % MCV 86.7 (80.0-98.0) fL MCH 28.4 (27.0-33.0) pg MCHC 32.8 (31.0-36.0) g/dl RDW 15.3 (11.0-16.0) % Plt Count 287 (160-400) X10*3/uL MPV 8.7 L (9.4-12.4) fL Immature Gran % (Auto) 0.4 (0.0-0.4) % Neut % (Auto) 79.2 H (45-73) % Lymph % (Auto) 10.4 L (20-40) % [place] % (Auto) 8.2 (2-11) % Eos % (Auto) 1.6 (0-4) % Baso % (Auto) 0.2 (0-2) % Lymph # (Auto) 1.2 (1.2-4.9) X10*3/uL [place] # (Auto) 1.0 (0.1-1.2) X10*3/uL Eos # (Auto) 0.2 (0.0-0.4) X10*3/uL Baso # (Auto) 0.0 (0.0-0.2) X10*3/uL Abs Immat Gran (auto) 0.05 H (0.00-0.03) X10*3/uL Absolute Neuts (auto) 9.4 H (2.0-8.3) x10*3/uL Absolute Nucleated RBC 0.000 (0.0-0.012) X10*3/uL Nucleated RBC % (auto) 0.0 (0.0-0.2) /100WBC ESR (0-15) MM/HR PT 11.8 (10.0-13.1) SEC INR 1.0 (0.9-1.1) APTT 29.6 (26.0-36.4) SEC Sodium (135-145) mmol/L Potassium (3.3-5.1) mmol/L Chloride (96-108) mmol/L Carbon Dioxide (22-29) mmol/L Anion Gap (12-20) BUN (9-16) mg/dL Creatinine (0.5-1.4) mg/dL Estim Creat Clear Calc Estimated GFR Random Glucose (60-115) mg/dL Lactic Acid (0.5-2.0) mmol/L Calcium (8.4-10.2) mg/dL Total Bilirubin (0.0-1.0) mg/dL AST (5-37) U/L ALT (0-40) U/L Alkaline Phosphatase (39-117) U/L C-Reactive Protein (< or = 0.50) mg/dL Total Protein (6.5-8.0) g/dL Albumin (3.5-5.0) g/dL Independent Interpretation I performed an independent interpretation of an: Plain X-Ray Radiology Impression Discussion of test interpretation with radiology: I have reviewed the radiologist's reading. Discharge Plan Discharge Clinical Impression: Drug overdose, Cellulitis Patient Disposition: Home, Self-Care Instructions: Cellulitis (ED), Adult Overdose (ED) Additional Instructions: Return to the ED immediately for any worsening foot pain, increased swelling, redness, red streaks, intractable fever, chills, chest pain, shortness of breath, or any other concerning symptoms. Continue using antibiotics as prescribed. Prescriptions: No Action bupropion HCl 150 mg tablet sustained-release 12 hr 150 mg PO DAILY trazodone 50 mg tablet 100 mg PO BEDTIME sertraline 100 mg tablet 150 mg PO DAILY clonazepam 1 mg tablet 1 mg PO BID hydroxyzine pamoate 50 mg capsule 50 mg PO BID PRN (Reason: Anxiety) mirtazapine 30 mg tablet 30 mg PO BEDTIME olanzapine 20 mg tablet 20 mg PO BEDTIME doxycycline hyclate 100 mg capsule 100 mg PO BID 9 Days Qty: 18 0RF (DME) cane Device See Rx Instructions .Route Qty: 1 0RF Rx Instructions: As directed Interventions: ED Discharge Assessment Last Done: 10/16/22 22:07 Discharge Date/Time: 10/16/22 22:15 Print Language: German
[2022-10-16 18:50] LABS: Lactic Acid 1.4 mmol/L (0.5-2.0)
[2022-10-16 19:07] VITALS: BP 121/83; PULSE 102; RESP 16; TEMP 36.9; O2SAT 96
[2022-10-16 19:27] LABS: Erythrocyte Sedimentation Rate 88 MM/HR (0-15)
[2022-10-16 19:57] LABS: Alanine Aminotransferase 17 U/L (0-40); Albumin Level 3.8 g/dL (3.5-5.0); Alkaline Phosphatase 113 U/L (39-117); Anion Gap 14 (12-20); Aspartate Amino Transferase 26 U/L (5-37); Bilirubin Total 0.3 mg/dL (0.0-1.0); Blood Urea Nitrogen 9 mg/dL (9-16); C Reactive Protein 20.43 mg/dL (< or = 0.50); Calcium 9.1 mg/dL (8.4-10.2); Carbon Dioxide 27 mmol/L (22-29); Chloride 104 mmol/L (96-108); Creatinine Clr Calc Pharmacy 77.5; Estimated Glomerular Filt Rate > 60; Glucose Random 98 mg/dL (60-115); Potassium 3.3 mmol/L (3.3-5.1); Sodium 142 mmol/L (135-145); Total Protein 6.6 g/dL (6.5-8.0)
[2022-10-16 20:00] LABS: Prothrombin Time 11.8 SEC (10.0-13.1)
[2022-10-16 20:03] LABS: Partial Thromboplastin Time 29.6 SEC (26.0-36.4)
[2022-10-16 20:28] LABS: Basophils Percent Auto 0.2 % (0-2); Eosinophils Absolute Auto 0.2 X10*3/uL (0.0-0.4); Eosinophils Percent Auto 1.6 % (0-4); Hematocrit 24.7 % (42.0-52.0); Hemoglobin 8.1 g/dl (14.0-18.0); Imm Gran Abs Auto 0.05 X10*3/uL (0.00-0.03); Imm Gran Pct Auto 0.4 % (0.0-0.4); Lymphocytes Absolute Auto 1.2 X10*3/uL (1.2-4.9); Lymphocytes Percent Auto 10.4 % (20-40); Mean Corpuscular HGB Conc 32.8 g/dl (31.0-36.0); Mean Corpuscular Hemoglobin 28.4 pg (27.0-33.0); Mean Corpuscular Volume 86.7 fL (80.0-98.0); Mean Platelet Volume 8.7 fL (9.4-12.4); Monocytes Percent Auto 8.2 % (2-11); Neutrophils Absolute Auto 9.4 x10*3/uL (2.0-8.3); Neutrophils Percent Auto 79.2 % (45-73); Platelet Count 287 X10*3/uL (160-400); Red Blood Count 2.85 X10*6/uL (4.60-5.80); Red Cell Distribution Width 15.3 % (11.0-16.0); White Blood Count 11.9 X10*3/uL (4.8-10.8)
[2022-10-16 21:30] VITALS: BP 100/67; PULSE 93; RESP 18; TEMP 36.7; O2SAT 96
--- NOTE | 2022-10-16 22:12 | PC.NURSE ---
This assembly instructions writer assumed care of this Pt at 1900. Pt A&Ox3, arousable to verbal stimuli. VSS. Left foot wrapped. Pt ambulated with cane to decon room upon D/C.
== END 2022-10-16 22:15 | disposition home or self-care (01) ==
PROVIDERS: Physician Assistant; Emergency Provider Internal Medicine; PCP Internal Medicine
DX: T40.1X1A Poisoning by heroin, accidental (unintentional), initial encounter (principal); L03.116 Cellulitis of left lower limb; F14.10 Cocaine abuse, uncomplicated; Y92.9 Unspecified place or not applicable; Z79.899 Other long term (current) drug therapy; F17.210 Nicotine dependence, cigarettes, uncomplicated; Z71.6 Tobacco abuse counseling; Z71.51 Drug abuse counseling and surveillance of drug abuser
CPT/HCPCS: 36415; 73620; 80053; 83605; 85025; 85610; 85652; 85730; 86140; 87040; 99284

== ENCOUNTER 2022-10-18 07:59 | Emergency (ER) | payer OTHER, SELFPAY ==
--- NOTE | ~2022-10-18 | XR_ITS ---
EXAMINATION: XR FOOT, LEFT CLINICAL INFORMATION: Pain COMPARISON: October 16, 2022 and October 13, 2022 TECHNIQUE: AP, lateral, and oblique views of the left foot. FINDINGS: Patient is status post transmetatarsal amputations of the first through fifth toes. Some adjacent calcification/ossification present. No gas within the soft tissues is identified. There appears to be a small ulceration about the anterior dorsal soft tissues. Prominent edema is present. There is an region of lucency seen about the distal fifth metatarsal as well as some slight irregularity about the distal second metatarsal. Osteomyelitis cannot be excluded. XR/XR foot LT 2V IMPRESSION: No significant change since study of October 16, 2022 and October 13, 2022. Acute osteomyelitis cannot be excluded and MRI would be of help in further evaluation if clinically indicated.
[2022-10-18 08:07] VITALS: BP 144/92; PULSE 108; O2SAT 95
[2022-10-18 08:20] VITALS: BP 138/82; PULSE 106; RESP 19; TEMP 36.6; O2SAT 97
[2022-10-18 08:22] VITALS: BP 138/82; PULSE 106; RESP 19; TEMP 36.6; O2SAT 97; BMI 29.5
--- NOTE | 2022-10-18 09:15 | ED.EXTPRO ---
HPI - Extremity Problem General Chief complaint: Extremity Problem Stated complaint: Foot pain associated with toe amputation per EMS Time Seen by Provider: 10/18/22 08:53 Source: patient Mode of arrival: EMS Limitations: no limitations History of Present Illness HPI Narrative: 52-year-old male who was homeless who presents emergency department for evaluation of left foot pain. The patient was hospitalized here from 08/30/2022 until 09/26/2022 for Toe necrosis caused by Frostbite with gangrenous tissue to both feet. s/p TMA Left foot and great toe right foot 09/20/22. The patient left the rehab facility against medical advice since he did not like the way he was being treated. The patient was admitted to the hospitalist again from 10/13/2022 until 10/15/2022 for increased left foot pain with swelling and generalized weakness. The urine tox screen at that time was positive for opiates condom benzos and cocaine. Infectious Disease was consulted and he was given a prescription for doxycycline 100 mg b.i.d. times 10 days which she did not fill. Patient also had rhabdomyolysis which was treated with IV fluid. The emergency department on 10/16/2022 for opiate overdose. He told me that he used 1 bag of heroin intranasally. Patient's blood work was unremarkable and he was discharged home. The patient presents emergency department today complaining of increased left foot pain. He states that he is been walking on his foot and it has been bleeding. He continues to be homeless he states he has been sleeping in someone's backyard. Related Data Home Medications Medication Instructions Recorded Confirmed bupropion HCl 150 mg tablet,12 hr 150 mg PO DAILY 08/31/22 10/18/22 sustained-release clonazepam 1 mg tablet 1 mg PO BID 08/31/22 10/18/22 hydroxyzine pamoate 50 mg capsule 50 mg PO BID PRN Anxiety 08/31/22 10/18/22 mirtazapine 30 mg tablet 30 mg PO BEDTIME 08/31/22 10/18/22 olanzapine 20 mg tablet 20 mg PO BEDTIME 08/31/22 10/18/22 sertraline 100 mg tablet 150 mg PO DAILY 08/31/22 10/18/22 trazodone 50 mg tablet 100 mg PO BEDTIME 08/31/22 10/18/22 Previous Rx's Medication Instructions Recorded cane #1 ea 10/15/22 doxycycline hyclate 150 mg tablet 100 mg PO BID 7 days #10 tabs 10/18/22 Allergies Allergy/AdvReac Type Severity Reaction Status Date / Time No Known Allergies Allergy Verified 10/03/22 14:56 [No Known Allergies*] Review of Systems Review of Systems: Yes all other systems are reviewed and are negative PMFSH Past Medical History Medical History Anxiety Chronic post-traumatic stress disorder (PTSD) Depression Mood disorder Opioid dependence on agonist therapy Suicidal ideation Surgical History History of transmetatarsal amputation of left foot (09/20/22) Social History Social History Household Members: Other Housing: Homeless Do you presently have visiting nurse or other home services: No Alcohol intake: never Patient Tobacco Use Status: Current someday Tobacco user Tobacco use type: Cigarette Cigarette Packs Per Day: 0.5 Cigarettes Per Day: 5 Years Smoked: 20 Smoked in Last 30 Days: Yes e-Cigarette/Vaping Use: Never Used Second Hand Smoke Exposure: No Use of substances other than those prescribed or required for medical reasons: Yes Substance Use Type: Crack/Cocaine Advance Directives: Yes Advance Directives on File: Yes Advance Directives Date on File: 09/27/22 service: No Current occupational status: unemployed Sexual orientation: Straight/Heterosexual Physical Exam Vital Signs: Vital Signs: Last Vital Signs Temp 97.8 F 10/18/22 12:51 Pulse 101 H 10/18/22 12:51 Resp 18 10/18/22 12:51 BP 114/70 10/18/22 12:51 Pulse Ox 97 10/18/22 12:51 O2 Del Method Room Air 10/18/22 12:51 BMI result Body Mass Index 29.5 Const: General: cooperative and no acute distress Orientation/consciousness: oriented to person and oriented to place Limitations: no limitations HEENT: Head: Yes normal to inspection, Yes normocephalic and Yes atraumatic Ears: external ears normal General nose exam: Normal external nose present Face and sinus: Yes normal facial exam Mouth: Normal oral and palatal mucosa present Throat: Yes posterior oropharynx normal Eyes: General: appearance normal, both eyes and all related structures Pupils: Equal, round and reactive pupils present Neck: Neck: Yes normal visual inspection, Yes no lymphadenopathy, Yes trachea midline and Yes supple Chest: Chest palpation & inspection: normal inspection of the chest and normal palpation of entire chest wall Resp: Effort & Inspection: normal respiratory effort and able to speak in complete sentences Auscultation: clear to auscultation bilaterally Cardio: Rate: regular rate Rhythm: regular rhythm Heart sounds: S1 normal heart sound present, S2 normal heart sound present and no murmurs GI: Inspection: Yes normal to inspection Palpation (GI): Soft to palpation, nontender and no guarding Auscultation: normal bowel sounds : General: Yes no CVA tenderness Back/Spine/Pelvis: Back: no CVA tenderness Skin: General skin exam: no rashes or lesions noted Neuro: General: oriented to person and oriented to place Cranial nerves: Yes CN's II-XII intact bilaterally and Yes Equal, round and reactive pupils present Cognition (Neuro): normal cognition Motor exam (neuro): 5/5 motor strength present throughout Extrem: Other: The patient's left foot had a dirty bloody bandage which was wet. The bandage was taken off and the foot was cleaned with sterile water. There is erythema noted however there is no increased warmth, there is soft tissue swelling noted as well. The surgical site is intact with no purulent drainage. Psych: Appearance: grossly normal Speech and movement: Normal speech and movement present Affect: normal affect Attitude: cooperative Thought process: Normal thought process present Thought content: Normal thought content present Medications Administered Discontinued Medications Generic Name Dose Route Start Last Admin Trade Name Tuckerq PRN Reason Stop Dose Admin Doxycycline Monohydrate 100 mg 10/18/22 09:13 10/18/22 09:35 Doxycycline Monohydrate 100 Mg Capsule PO 10/18/22 09:14 100 mg ONCE ONE Administration Medical Decision Making Medical Decision Making [facility] Narrative: 52-year-old male who was homeless, recent left foot TM amputation and right foot great toe amputation secondary to frostbite 09/21/2022, recent admission for cellulitis discharge 10/15/2022 and the patient did not get his prescription for doxycycline filled. Patient was seen again on 10/2022 for opiate overdose. Patient has a history of opiate, cocaine and benzodiazepine abuse. The patient presented today with increased pain in his left foot. On presentation the patient had a dirty, bloody dressing on the foot which she has not change since 10/16/2022 (2 days prior). The wound on the left foot is intact and does not appear to be infected at this time. The wound on the right foot also has intact and does not appear to be infected. I did talk to our case consultant about possibly getting this patient into a care facility however they do not think that it is possible since he left against medical advice shortly after going to rehab after his amputation therefore he will not qualify for rehab at this time. I ordered a laboratory evaluation includes CBC, CMP, CRP and ESR. 1323: My independent interpretation patient's laboratory evaluation is as follows: WBCs normal 11,700. Chronic anemia with an H&H of 8.3 and 25.8. CRP elevated 18.4 but no change from previous. ESR elevated 92 but no change from previous . Urinalysis negative X-ray of the right foot no change from previous. The patient will be discharged home. I gave may printed prescription for doxycycline 100 mg twice a day for 7 days and told him to take it to a local pharmacy to get it filled. At this time I do not have a solution for the patient's homelessness or way to get him into his [facility] facility. Differential Diagnosis Differential diagnosis includes osteomyelitis, cellulitis, inflammation secondary to use, dependent edema Consult Healthcare Provider Management of the patient was discussed with: [employer] Consult[employer] (Case management) Lab Data [facility] Lab Attestation statement: I reviewed the patient's lab results. 10/18/22 09:41 10/18/22 09:41 Labs: Lab Results 10/18/22 10/18/22 10/18/22 Range/Units 09:41 09:41 09:41 WBC 11.7 H (4.8-10.8) X10*3/uL RBC 2.98 L (4.60-5.80) X10*6/uL Hgb 8.3 L (14.0-18.0) g/dl Hct 25.8 L (42.0-52.0) % MCV 86.6 (80.0-98.0) fL MCH 27.9 (27.0-33.0) pg MCHC 32.2 (31.0-36.0) g/dl RDW 15.0 (11.0-16.0) % Plt Count 332 (160-400) X10*3/uL MPV 8.7 L (9.4-12.4) fL Immature Gran % (Auto) 0.5 H (0.0-0.4) % Neut % (Auto) 78.5 H (45-73) % Lymph % (Auto) 11.4 L (20-40) % [place] % (Auto) 7.7 (2-11) % Eos % (Auto) 1.5 (0-4) % Baso % (Auto) 0.4 (0-2) % Lymph # (Auto) 1.3 (1.2-4.9) X10*3/uL [place] # (Auto) 0.9 (0.1-1.2) X10*3/uL Eos # (Auto) 0.2 (0.0-0.4) X10*3/uL Baso # (Auto) 0.1 (0.0-0.2) X10*3/uL Abs Immat Gran (auto) 0.06 H (0.00-0.03) X10*3/uL Absolute Neuts (auto) 9.2 H (2.0-8.3) x10*3/uL Absolute Nucleated RBC 0.000 (0.0-0.012) X10*3/uL Nucleated RBC % (auto) 0.0 (0.0-0.2) /100WBC ESR 92 H (0-15) MM/HR Sodium 139 (135-145) mmol/L Potassium 3.4 (3.3-5.1) mmol/L Chloride 102 (96-108) mmol/L Carbon Dioxide 27 (22-29) mmol/L Anion Gap 13 (12-20) BUN 12 (9-16) mg/dL Creatinine 1.29 (0.5-1.4) mg/dL Estim Creat Clear Calc 74.5 Estimated GFR 58 Random Glucose 86 (60-115) mg/dL Calcium 8.9 (8.4-10.2) mg/dL Total Bilirubin 0.4 (0.0-1.0) mg/dL AST 42 H (5-37) U/L ALT 22 (0-40) U/L Alkaline Phosphatase 115 (39-117) U/L C-Reactive Protein 18.04 H (< or = 0.50) mg/dL Total Protein 6.3 L (6.5-8.0) g/dL Albumin 3.6 (3.5-5.0) g/dL Radiology Impression Discussion of test interpretation with radiology: I have reviewed the radiologist's reading. Radiologist Impression: EXAMINATION: XR FOOT, LEFT CLINICAL INFORMATION: Pain COMPARISON: October 16, 2022 and October 13, 2022 FINDINGS: Patient is status post transmetatarsal amputations of the first through fifth toes. Some adjacent calcification/ossification present. No gas within the soft tissues is identified. There appears to be a small ulceration about the anterior dorsal soft tissues. Prominent edema is present. There is an region of lucency seen about the distal fifth metatarsal as well as some slight irregularity about the distal second metatarsal. Osteomyelitis cannot be excluded. XR/XR foot LT 2V IMPRESSION: No significant change since study of October 16, 2022 and October 13, 2022. Acute osteomyelitis cannot be excluded and MRI would be of help in further evaluation if clinically indicated. Dictated By:Anson Victoria MD Social Determinants Patient?s care significantly limited by Social Determinants of Health including: Inadequate housing Discharge Plan Discharge Clinical Impression: Cellulitis Patient Disposition: Home, Self-Care Instructions: Cellulitis (ED) Additional Instructions: Your blood work is unchanged from your previous labs. The x-ray revealed no obvious Vaughn infection at this time. We were not able to get you into a [facility] facility since you left her previous [facility] facility against medical advice. Take doxycycline 100 mg, 1 pill every 12 hours for 7 days Follow-up with your doctor in 2 days. Please return to the emergency department if your symptoms get worse or if you develop any symptoms that are concerning to you. Prescriptions: New doxycycline hyclate 150 mg tablet 100 mg PO BID 7 Days Qty: 10 0RF No Action bupropion HCl 150 mg tablet sustained-release 12 hr 150 mg PO DAILY trazodone 50 mg tablet 100 mg PO BEDTIME sertraline 100 mg tablet 150 mg PO DAILY clonazepam 1 mg tablet 1 mg PO BID hydroxyzine pamoate 50 mg capsule 50 mg PO BID PRN (Reason: Anxiety) mirtazapine 30 mg tablet 30 mg PO BEDTIME olanzapine 20 mg tablet 20 mg PO BEDTIME (DME) cane Device See Rx Instructions .Route Qty: 1 0RF Rx Instructions: As directed
[2022-10-18] MEDS: Doxycycline Monohydrate 100 MG CAPSULE PO (09:35)
[2022-10-18 09:37] VITALS: BP 122/81; PULSE 99; RESP 18; O2SAT 97
--- NOTE | 2022-10-18 09:42 | PC.NURSE ---
pt alert and oriented, skin pwd, respirations even and unlabored, pt reports about a month ago had his left toes amputated and the great right, left foot red/warm to touch and appears swollen, with foul ordered present, right foot also slightly red/warm to touch, pain at 8/10. pt also reports being homeless
[2022-10-18 09:49] LABS: MANUAL DIFF FLAG NO
[2022-10-18 09:52] LABS: Basophils Absolute Auto 0.1 X10*3/uL (0.0-0.2); Basophils Percent Auto 0.4 % (0-2); Eosinophils Absolute Auto 0.2 X10*3/uL (0.0-0.4); Eosinophils Percent Auto 1.5 % (0-4); Hematocrit 25.8 % (42.0-52.0); Hemoglobin 8.3 g/dl (14.0-18.0); Imm Gran Abs Auto 0.06 X10*3/uL (0.00-0.03); Imm Gran Pct Auto 0.5 % (0.0-0.4); Lymphocytes Absolute Auto 1.3 X10*3/uL (1.2-4.9); Lymphocytes Percent Auto 11.4 % (20-40); Mean Corpuscular HGB Conc 32.2 g/dl (31.0-36.0); Mean Corpuscular Hemoglobin 27.9 pg (27.0-33.0); Mean Corpuscular Volume 86.6 fL (80.0-98.0); Mean Platelet Volume 8.7 fL (9.4-12.4); Monocytes Absolute Auto 0.9 X10*3/uL (0.1-1.2); Monocytes Percent Auto 7.7 % (2-11); Neutrophils Absolute Auto 9.2 x10*3/uL (2.0-8.3); Neutrophils Percent Auto 78.5 % (45-73); Platelet Count 332 X10*3/uL (160-400); Red Blood Count 2.98 X10*6/uL (4.60-5.80); White Blood Count 11.7 X10*3/uL (4.8-10.8)
--- NOTE | 2022-10-18 10:07 | PHA.MEDREC ---
Pharmacy Consult ? Medication Reconciliation Pharmacy has completed the medication reconciliation. Pt recently discharged; continued meds from previous visit
[2022-10-18 10:13] LABS: Alanine Aminotransferase 22 U/L (0-40); Albumin Level 3.6 g/dL (3.5-5.0); Alkaline Phosphatase 115 U/L (39-117); Anion Gap 13 (12-20); Aspartate Amino Transferase 42 U/L (5-37); Bilirubin Total 0.4 mg/dL (0.0-1.0); Blood Urea Nitrogen 12 mg/dL (9-16); C Reactive Protein 18.04 mg/dL (< or = 0.50); Calcium 8.9 mg/dL (8.4-10.2); Carbon Dioxide 27 mmol/L (22-29); Chloride 102 mmol/L (96-108); Creatinine Clr Calc Pharmacy 74.5; Estimated Glomerular Filt Rate 58; Glucose Random 86 mg/dL (60-115); Potassium 3.4 mmol/L (3.3-5.1); Sodium 139 mmol/L (135-145); Total Protein 6.3 g/dL (6.5-8.0)
[2022-10-18 10:36] LABS: Erythrocyte Sedimentation Rate 92 MM/HR (0-15)
[2022-10-18 12:51] VITALS: BP 114/70; PULSE 101; RESP 18; TEMP 36.6; O2SAT 97
== END 2022-10-18 14:41 | disposition home or self-care (01) ==
PROVIDERS: Physician Assistant Medical; Emergency Provider Emergency Medicine Emergency Medical Services; PCP Internal Medicine
DX: L03.116 Cellulitis of left lower limb (principal); M79.672 Pain in left foot; R60.0 Localized edema; F17.210 Nicotine dependence, cigarettes, uncomplicated; F11.10 Opioid abuse, uncomplicated; Z89.422 Acquired absence of other left toe(s); Z89.411 Acquired absence of right great toe; Z79.899 Other long term (current) drug therapy
CPT/HCPCS: 36415; 73620; 80053; 85025; 85652; 86140; 99283; 99284; S9485

== ENCOUNTER 2022-10-18 15:31 | Inpatient (IN) | payer OTHER, SELFPAY ==
[2022-10-18 15:58] VITALS: BP 115/75; PULSE 118; RESP 18; TEMP 37.3; O2SAT 96; BMI 29.5
--- NOTE | 2022-10-18 15:59 | ED_ITS ---
HPI - Back Pain/Injury General Chief Complaint: General Medical <AJIT Villanueva - Last Filed: 10/18/22 16:20> Stated Complaint: foot is bleeding, recently amputated, pain <AJIT Villanueva - Last Filed: 10/18/22 16:20> Time Seen by Provider: 10/18/22 17:54 <AJIT Villanueva - Last Filed: 10/18/22 16:20> Source: patient <Princess Braden MD - Last Filed: 10/18/22 18:30> Mode of arrival: ambulatory <Princess Braden MD - Last Filed: 10/18/22 18:30> Limitations: no limitations <Princess Braden MD - Last Filed: 10/18/22 18:30> History of Present Illness HPI Narrative: Patient comes to the emergency room complaining of suicidal ideation. Patient states that he is homeless, plans to overdose. Of note, patient had an amputation on the left foot on 09/20/22, patient was seen here 2 days ago, complaining of foot pain. Patient was discharged earlier this morning. Patient states that he has not been taking his antibiotics as prescribed because he does not feel like it . <Princess Braden MD - Last Filed: 10/18/22 18:30> Related Data Home Medications: Home Medications Medication Instructions Recorded Confirmed bupropion HCl 150 mg tablet,12 hr 150 mg PO DAILY 08/31/22 10/18/22 sustained-release clonazepam 1 mg tablet 1 mg PO BID 08/31/22 10/18/22 hydroxyzine pamoate 50 mg capsule 50 mg PO BID PRN Anxiety 08/31/22 10/18/22 mirtazapine 30 mg tablet 30 mg PO BEDTIME 08/31/22 10/18/22 olanzapine 20 mg tablet 20 mg PO BEDTIME 08/31/22 10/18/22 sertraline 100 mg tablet 100 mg PO DAILY 08/31/22 10/18/22 trazodone 50 mg tablet 100 mg PO BEDTIME 08/31/22 10/18/22 Previous Rx's Medication Instructions Recorded cane #1 ea 10/15/22 doxycycline hyclate 150 mg tablet 100 mg PO BID 7 days #10 tabs 10/18/22 <AJIT Villanueva - Last Filed: 10/18/22 16:20> Allergies/Adverse Reactions: Allergies Allergy/AdvReac Type Severity Reaction Status Date / Time No Known Allergies Allergy Verified 10/18/22 17:33 [No Known Allergies*] <AJIT Villanueva - Last Filed: 10/18/22 16:20> Review of Systems Review of Systems: Constitutional : No Weight loss, No Fever, No Chills, No Night Sweats, No Fatigue, No Malaise ENT/Mouth : No Hearing loss, No Ear Pain, No Nasal Congestion, No Sinus Pain, No Hoarseness, No sore throat, No Rhinorrhea, No Swallowing Difficulty Eyes: No Eye Pain, No Swelling, No Redness, No Foreign Body, No Discharge, No Vision Changes Cardiovascular : No Chest Pain, No SOB, No Dyspnea on Exertion, No Orthopnea, No Edema, No Palpitations Respiratory : No Cough, No Sputum, No Wheezing, No Smoke Exposure, No Dyspnea Gastrointestinal : No Nausea, No Vomiting, No Diarrhea, No Constipation, No abdominal Pain, No Hematochezia, No Melena Genitourinary : no irregular bleeding, No Dysuria, No Urinary Frequency, No Hematuria, No Urinary Incontinence, No Urgency, No Flank Pain, No Urinary Flow Changes, No Hesitancy Musculoskeletal : No joint pain, No Myalgias, No Joint Swelling Skin : Healing amputation on the left foot, Neuro : No Weakness, No Numbness, No Paresthesias, No Loss of Consciousness, No Dizziness, No Headache Psych : No Anxiety/Panic, No Depression, denies suicidal or homicidal ideation Heme/Lymph: No Bruising, No Bleeding,No Lymphadenopathy Endocrine : No Polyuria, No Polydipsia, No Temperature Intolerance <Princess Braden MD - Last Filed: 10/18/22 18:30> [facility] Past Medical History Medical History: Medical History Anxiety Chronic post-traumatic stress disorder (PTSD) Depression Mood disorder Opioid dependence on agonist therapy Suicidal ideation <AJIT Villanueva - Last Filed: 10/18/22 16:20> Surgical History: Surgical History History of transmetatarsal amputation of left foot (09/20/22) <AJIT Villanueva - Last Filed: 10/18/22 16:20> Social History Social History: Social History Household Members: Other Housing: Homeless Do you presently have visiting nurse or other home services: No Alcohol intake: never Patient Tobacco Use Status: Current someday Tobacco user Tobacco use type: Cigarette Cigarette Packs Per Day: 0.5 Cigarettes Per Day: 5 Years Smoked: 20 e-Cigarette/Vaping Use: Never Used Second Hand Smoke Exposure: No Substance Use Type: Crack/Cocaine Advance Directives: Yes Advance Directives on File: Yes Advance Directives Date on File: 09/27/22 service: No Current occupational status: unemployed Sexual orientation: Straight/Heterosexual <AJIT Villanueva - Last Filed: 10/18/22 16:20> Physical Exam Vital Signs: Vital Signs: Last Vital Signs Temp 99.2 F 10/18/22 15:58 Pulse 118 H 10/18/22 15:58 Resp 18 10/18/22 15:58 BP 115/75 10/18/22 15:58 Pulse Ox 96 10/18/22 15:58 O2 Del Method Room Air 10/18/22 15:58 BMI result Body Mass Index 29.5 <AJIT Villanueva - Last Filed: 10/18/22 16:20> Vital Signs: Last Vital Signs Temp 99.2 F 10/18/22 15:58 Pulse 118 H 10/18/22 15:58 Resp 18 10/18/22 15:58 BP 115/75 10/18/22 15:58 Pulse Ox 96 10/18/22 15:58 O2 Del Method Room Air 10/18/22 15:58 BMI result Body Mass Index 29.5 <Princess Braden MD - Last Filed: 10/18/22 18:30> Const: Other: Appearance: Alert. Oriented X3. No acute distress. Eyes: Pupils equal, round and reactive to light. ENT: Pharynx normal. Neck: Normal inspection. Neck supple. No lymph nodes noted. No crepitus CVS: Normal heart rate and rhythm. Pulses normal. Normal S1 and S2 Respiratory: No respiratory distress. Breath sounds normal. No Wheezing. No rales Abdomen: Soft and nontender. No rigidity. No distention. Skin: Skin warm and dry. Normal skin color. Normal skin turgor. Extremities: No lower extremity edema. No Lacerations. No Rash . Both feet are status post toe amputation. Patient's feet bilaterally skin clean, no pus drainage, no signs of cellulitis. Neuro: Oriented X 3. No motor deficit. No sensory deficit. Moving all extremities. No slurred speech. CN 2 through 12 grossly intact Psych: calm, cooperative, normal affect <Princess Braden MD - Last Filed: 10/18/22 18:30> Course Course Course Narrative: RME - 52 y/o male s/p TMA on the left foot 09/20/22, in the ER 2 nights ago for LE cellulitis who presents to the ER for evaluation of ongoing left foot wound bleeding and pain. He is homeless and continues to walk on the wound. He reports 7/10 foot pain and also 7/10 low back pain which is acute on chronic, exacerbated with ambulation and limping. No red flag symptoms of LBP. He reports SOB when he walks for the last couple of days. Not taking his prescribed oral antibiotics, I didn't feel like it. He also states he is suidical, wants to get a couple bags, shoot up and have it be over. Found to have a low grade fever, tachycardic 118. Plan: XR foot, wound evaluation, labs, lactic cultures, EKG <AJIT Villanueva - Last Filed: 10/18/22 16:20> Medications Administered Discontinued Medications Generic Name Dose Route Start Last Admin Trade Name Freq PRN Reason Stop Dose Admin Acetaminophen 975 mg 10/18/22 17:49 10/18/22 18:00 Acetaminophen 325 Mg Tablet PO 10/18/22 17:50 975 mg ONCE ONE Administration <AJIT Villanueva - Last Filed: 10/18/22 16:20> Medications Administered Discontinued Medications Generic Name Dose Route Start Last Admin Trade Name Freq PRN Reason Stop Dose Admin Acetaminophen 975 mg 10/18/22 17:49 10/18/22 18:00 Acetaminophen 325 Mg Tablet PO 10/18/22 17:50 975 mg ONCE ONE Administration <Princess Braden MD - Last Filed: 10/18/22 18:30> Medical Decision Making Medical Decision Making [facility] Narrative: -patient's labs at baseline, on physical exam patient's feet look well. Patient was provided with a dose of doxycycline which he has not been taking because he ?does not feel like it? -care team consult pending -physician observation started at 18:15 <Princess Braden MD - Last Filed: 10/18/22 18:30> Lab Data Labs: Lab Results 10/18/22 Range/Units 17:49 COVID-19 (KHUSHI) Negative (Negative) COVID-19 Clin Com See Note <AJIT Villanueva - Last Filed: 10/18/22 16:20> Lab Results 10/18/22 Range/Units 17:49 COVID-19 ([facility]USHI) Negative (Negative) COVID-19 Clin Com See Note <Princess Braden MD - Last Filed: 10/18/22 18:30> Discharge Plan Discharge Clinical Impression: Suicidal ideation <AJIT Villanueva - Last Filed: 10/18/22 16:20> Patient Disposition: Home, Self-Care <AJIT Villanueva - Last Filed: 10/18/22 16:20> Prescriptions: No Action bupropion HCl 150 mg tablet sustained-release 12 hr 150 mg PO DAILY trazodone 50 mg tablet 100 mg PO BEDTIME sertraline 100 mg tablet 100 mg PO DAILY clonazepam 1 mg tablet 1 mg PO BID hydroxyzine pamoate 50 mg capsule 50 mg PO BID PRN (Reason: Anxiety) mirtazapine 30 mg tablet 30 mg PO BEDTIME olanzapine 20 mg tablet 20 mg PO BEDTIME (DME) cane Device See Rx Instructions .Route Qty: 1 0RF Rx Instructions: As directed doxycycline hyclate 150 mg tablet 100 mg PO BID 7 Days Qty: 10 0RF <AJIT Villanueva - Last Filed: 10/18/22 16:20>
--- NOTE | 2022-10-18 16:02 | ECG_ITS ---
Test Reason : TACHYCARDIA Blood Pressure : / mmHG Vent. Rate : 109 BPM Atrial Rate : 109 BPM P-R Int : 164 ms QRS Dur : 084 ms QT Int : 362 ms P-R-T Axes : 056 042 029 degrees QTc Int : 487 ms Sinus tachycardia Otherwise normal ECG When compared with ECG of 13-OCT-2022 17:01, No significant change was found Referred By: Macey Nixon Electronically Signed By:ARIE LEVY
[2022-10-18] MEDS: Acetaminophen 325 MG TABLET 975 MG PO (18:00)
--- NOTE | 2022-10-18 18:12 | MHC.EDTECH ---
This PCT attempted pt blood draw, unable to collect due to difficult draw. Phlebotomy called x5, no answer. Will continue to call phleb.
[2022-10-18 18:13] LABS: COVID-19 Test Negative (Negative); IDNOW Serial# 08D9AD1C
[2022-10-18] MEDS: Ibuprofen 800 MG TABLET PO (18:25)
[2022-10-18 18:42] LABS: MANUAL DIFF FLAG NO
[2022-10-18 18:43] LABS: Basophils Percent Auto 0.3 % (0-2); Eosinophils Absolute Auto 0.3 X10*3/uL (0.0-0.4); Eosinophils Percent Auto 2.7 % (0-4); Hemoglobin 8.7 g/dl (14.0-18.0); Imm Gran Abs Auto 0.04 X10*3/uL (0.00-0.03); Imm Gran Pct Auto 0.3 % (0.0-0.4); Lymphocytes Absolute Auto 1.7 X10*3/uL (1.2-4.9); Lymphocytes Percent Auto 14.8 % (20-40); Mean Corpuscular HGB Conc 33.5 g/dl (31.0-36.0); Mean Corpuscular Hemoglobin 28.7 pg (27.0-33.0); Mean Corpuscular Volume 85.8 fL (80.0-98.0); Mean Platelet Volume 8.7 fL (9.4-12.4); Monocytes Absolute Auto 0.8 X10*3/uL (0.1-1.2); Neutrophils Absolute Auto 8.7 x10*3/uL (2.0-8.3); Neutrophils Percent Auto 74.9 % (45-73); Platelet Count 348 X10*3/uL (160-400); Red Blood Count 3.03 X10*6/uL (4.60-5.80); White Blood Count 11.7 X10*3/uL (4.8-10.8)
[2022-10-18 18:49] LABS: Prothrombin Time 11.7 SEC (10.0-13.1)
[2022-10-18 18:52] LABS: Partial Thromboplastin Time 30.8 SEC (26.0-36.4)
[2022-10-18 18:54] LABS: Lactic Acid 0.9 mmol/L (0.5-2.0)
[2022-10-18 19:00] LABS: Alanine Aminotransferase 21 U/L (0-40); Albumin Level 3.6 g/dL (3.5-5.0); Alkaline Phosphatase 117 U/L (39-117); Anion Gap 15 (12-20); Aspartate Amino Transferase 35 U/L (5-37); Bilirubin Direct 0.1 mg/dL (0.0-0.5); Bilirubin Total 0.3 mg/dL (0.0-1.0); Blood Urea Nitrogen 11 mg/dL (9-16); Carbon Dioxide 28 mmol/L (22-29); Chloride 102 mmol/L (96-108); Creatinine Clr Calc Pharmacy 74.5; Estimated Glomerular Filt Rate 58; Ethanol < 10 mg/dL; Glucose Random 104 mg/dL (60-115); Magnesium 1.7 mg/dL (1.6-2.6); Potassium 3.1 mmol/L (3.3-5.1); Sodium 142 mmol/L (135-145); Total Protein 6.3 g/dL (6.5-8.0)
[2022-10-18 19:06] LABS: Troponin-I High Sensitivity 14.3 ng/L (<3.5-35.0)
[2022-10-18 19:13] LABS: B Type Natriuretic Peptide 32 pg/mL (<100)
[2022-10-18 20:32] LABS: Amphetamine Screen Urine Not Detected (Not Detect); Barbiturates, Urine Not Detected (Not Detect); Benzodiazepines Screen Urine POSITIVE (Not Detect); Cannabinoid Screen Urine Not Detected (Not Detect); Cocaine Screen Urine POSITIVE (Not Detect); Fentanyl, urine POSITIVE (Not Detect); Opiate Screen Urine POSITIVE (Not Detect); Phencyclidine Screen Urine Not Detected (Not Detect)
[2022-10-18] MEDS: Doxycycline Monohydrate 100 MG CAPSULE PO (21:45)
[2022-10-19 06:00] VITALS: BP 102/57; PULSE 107; RESP 18; TEMP 36.8; O2SAT 98
--- NOTE | 2022-10-19 06:06 | PC.NURSE ---
Patient slept through the night, no distress observed/reported, behavior non concerning, disposition per care team is section 12 inpatient bed search, VSS, med rec completed/pending provider's approval, patient has LE cellulites/Doxy 100 mg BID started/first dose administered last night, medication compliant will continue to monitor.
[2022-10-19] MEDS: Doxycycline Monohydrate 100 MG CAPSULE PO ×2 (08:20→19:53)
[2022-10-19] MEDS: Acetaminophen 325 MG TABLET 975 MG PO (08:26)
[2022-10-19] MEDS: Ibuprofen 800 MG TABLET PO (08:29)
--- NOTE | 2022-10-19 10:00 | PC.NURSE ---
Pt resting. Offered a w/c to bathroom/shower if needed. Pt refused at this time. Reporting some pain relief.
[2022-10-19] MEDS: buPROPion HCL 75 MG TABLET PO (19:53)
[2022-10-19] MEDS: traZODone HCL 100 MG TABLET PO (19:53)
[2022-10-19] MEDS: Mirtazapine 30 MG TABLET PO (19:53)
[2022-10-19] MEDS: OLANZapine 10 MG TABLET 20 MG PO (19:54)
[2022-10-19] MEDS: clonazePAM 1 MG TABLET PO (19:54)
--- NOTE | 2022-10-19 22:16 | PC.ADMIT ---
Pt is a 52 year old male who present from [facility] to on a cv status. Pt is covid - Pt tox screen + for opiates, fentanyl, benzos, cocaine. Per chart review, pt had SI with a plan to use a couple of bags of heroin and overdose. Pt presented with pain to foot due to having four toes removed this past September. Pt has not been taking antibiotics medication for foot. During admit, pt denied pain, but reported that he has a leg dressing that needs to be attended and wanted to talk with the doctor more about it first. Pt denied Si/HI/Ah?VH during admit. Pt reported anxiety and depression to be a 7/10. Pt was seem at [facility] two days prior for an overdose on heroin Pts last admission to was 07/08/22 to 07/20/22. Pt ambulates without any devices. Provider called and notified for admission. Start treatment plan and monitor for safety.
[2022-10-20 06:00] VITALS: BP 118/73; PULSE 108; RESP 16; TEMP 36.9; O2SAT 99
[2022-10-20] MEDS: Sertraline HCL 25 MG TABLET PO (08:47)
[2022-10-20] MEDS: clonazePAM 1 MG TABLET PO ×2 (08:47→19:45)
[2022-10-20] MEDS: Doxycycline Monohydrate 100 MG CAPSULE PO ×2 (08:49→19:45)
[2022-10-20] MEDS: buPROPion HCL 75 MG TABLET PO ×2 (08:50→19:45)
[2022-10-20 09:49] LABS: Cholesterol 181 mg/dL; HDL Cholesterol 23 mg/dL; LDL Cholesterol Calculated 119 mg/dl; Magnesium 1.8 mg/dL (1.6-2.6); Triglycerides 196 mg/dL
[2022-10-20 10:07] LABS: Estimated Average Glucose 100 mg/dL; Hemoglobin A1c % 5.1 %
[2022-10-20 10:26] LABS: Thyroid Stimulating Hormone 0.28 uIU/mL (0.32-4.0); Vitamin B12 263 pg/mL (200-900)
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
--- NOTE | 2022-10-20 15:20 | PC.NURSE ---
dry sterile dressing applied to L transmetatarsal surgical incision per providers order. NO visible discharge.
[2022-10-20] MEDS: Acetaminophen 325 MG TABLET 650 MG PO (18:42)
[2022-10-20] MEDS: OLANZapine 10 MG TABLET 20 MG PO (19:45)
[2022-10-20] MEDS: Mirtazapine 30 MG TABLET PO (19:45)
[2022-10-20] MEDS: traZODone HCL 100 MG TABLET PO (19:45)
[2022-10-21 09:09] VITALS: BP 112/58; PULSE 102; RESP 16; TEMP 36.8; O2SAT 97
[2022-10-21] MEDS: Sertraline HCL 50 MG TABLET PO (09:10)
[2022-10-21] MEDS: Doxycycline Monohydrate 100 MG CAPSULE PO ×2 (09:10→20:36)
[2022-10-21] MEDS: clonazePAM 1 MG TABLET PO ×2 (09:10→20:36)
[2022-10-21] MEDS: buPROPion HCL 75 MG TABLET PO ×2 (09:10→20:36)
[2022-10-21] MEDS: Acetaminophen 325 MG TABLET 650 MG PO ×2 (10:45→17:10)
--- NOTE | 2022-10-21 11:41 | HO.PSYCHPN ---
Subjective Subjective Date of Service: 10/21/22 Reason For Visit: Recurrent major depression, PTSD, Opiate, Cocaine Interim History: Patient seen and discussed. Patient has been depressed and withdraw. Says he feels so, so He describes his depression as 7/10 but A little better . Says he has no SI today. He says he has pain from his toe amputation and that Tylenol isn't helpful. He denies ETOH withdrawal. Denies SI/HI/AVH. Tolerating medications well. Review of Systems Review of Systems Constitutional : No Weight loss, No Fever, No Chills, No Night Sweats, No Fatigue, No Malaise ENT/Mouth : No Hearing loss, No Ear Pain, No Nasal Congestion, No Sinus Pain, No Hoarseness, No sore throat, No Rhinorrhea, No Swallowing Difficulty Eyes: No Eye Pain, No Swelling, No Redness, No Foreign Body, No Discharge, No Vision Changes Cardiovascular : No Chest Pain, No SOB, No Dyspnea on Exertion, No Orthopnea, No Edema, No Palpitations Respiratory : No Cough, No Sputum, No Wheezing, No Smoke Exposure, No Dyspnea Gastrointestinal : No Nausea, No Vomiting, No Diarrhea, No Constipation, No abdominal Pain, No Hematochezia, No Melena Genitourinary : no irregular bleeding, No Dysuria, No Urinary Frequency, No Hematuria, No Urinary Incontinence, No Urgency, No Flank Pain, No Urinary Flow Changes, No Hesitancy Musculoskeletal : No joint pain, No Myalgias, No Joint Swelling Skin : Healing amputation on the left foot, Neuro : No Weakness, No Numbness, No Paresthesias, No Loss of Consciousness, No Dizziness, No Headache Psych : No Anxiety/Panic, No Depression, denies suicidal or homicidal ideation Heme/Lymph: No Bruising, No Bleeding,No Lymphadenopathy Endocrine : No Polyuria, No Polydipsia, No Temperature Intolerance Constitutional: Reports as per HPI Eyes: Reports as per HPI Reports as per HPI Cardiovascular: Reports as per HPI Respiratory: Reports as per HPI Gastrointestinal: Reports as per HPI Genitourinary: Reports as per HPI Musculoskeletal: Reports as per HPI Skin/Breast: Reports as per HPI Reports as per HPI Psychiatric: Reports as per HPI Endocrine: Reports as per HPI Hematologic/Lymphatic: Reports as per HPI Allergic/Immunologic: Reports as per HPI Mental Status Exam Mental Status Exam Narrative: Pt is alert and oriented; behavior is cooperative, friendly and calm; patient is not in distress; dressed in casual attire; mood is described as so so and affect congruent, depressed; eye contact appropriate; Speech is normal rate, low volume but not pressured; psychomotor retardation present; thought process is organized and goal directed; Thought content is on tx; otherwise pertinent to relevant topics and without any delusional content, paranoid ideations or grandiosity; There is no evidence of perceptual disturbance. Patients insight and judgment appear poor. Patient denies HI at this time. Patient reports suicidal ideation, states he feels safe on the unit. Diagnostics Vital Signs (24Hr): Vital Signs - 24 hr 10/21/22 09:09 Temperature 98.2 F Pulse Rate 102 H Respiratory Rate 16 Blood Pressure 112/58 L Pulse Oximetry 97 Oxygen Delivery Method Room Air BMI result Body Mass Index 29.5 Labs 10/18/22 18:34 10/18/22 18:34 Labs: Laboratory Results - last 48 hr 10/20/22 10/20/22 08:31 08:31 Estimat Average Glucose 100 Hemoglobin A1c % 5.1 Magnesium 1.8 Triglycerides 196 Cholesterol 181 LDL Cholesterol, Calc 119 HDL Cholesterol 23 Vitamin B12 263 Folate 8.0 TSH 0.28 L Free T4 0.80 Medications Medications Current Medications Acetaminophen (Acetaminophen 325 Mg Tablet) 650 mg PO Q6H PRN PRN Reason: Headache/Pain Mild Scale (1-3) Last Admin: 10/21/22 10:45 Dose: 650 mg Al Hydroxide/Mg Hydroxide (Magnesium Hydrox/Alum Hydrox 30 Ml Oral.Susp) 30 ml PO Q6H PRN PRN Reason: Heartburn/Nausea Bupropion HCl (Bupropion Hcl 75 Mg Tablet) 75 mg PO BID [facility] Last Admin: 10/21/22 09:10 Dose: 75 mg Clonazepam (Clonazepam 1 Mg Tablet) 1 mg PO BID [facility] Last Admin: 10/21/22 09:10 Dose: 1 mg Doxycycline Monohydrate (Doxycycline Monohydrate 100 Mg Capsule) 100 mg PO BID [facility] Last Admin: 10/21/22 09:10 Dose: 100 mg Hydroxyzine HCl (Hydroxyzine Hcl 50 Mg Tablet) 50 mg PO BID PRN PRN Reason: Anxiety Magnesium Hydroxide (Milk Of Magnesia 30 Ml Oral.Susp) 30 ml PO DAILY PRN PRN Reason: Constipation Mirtazapine (Mirtazapine 30 Mg Tablet) 30 mg PO BEDTIME [facility] Last Admin: 10/20/22 19:45 Dose: 30 mg Olanzapine (Olanzapine 10 Mg Tablet) 20 mg PO BEDTIME [facility] Last Admin: 10/20/22 19:45 Dose: 20 mg Sertraline HCl (Sertraline Hcl 50 Mg Tablet) 50 mg PO DAILY [facility] Last Admin: 10/21/22 09:10 Dose: 50 mg Trazodone HCl (Trazodone Hcl 100 Mg Tablet) 100 mg PO BEDTIME [facility] Last Admin: 10/20/22 19:45 Dose: 100 mg Allergies Allergies Allergy/AdvReac Type Severity Reaction Status Date / Time No Known Allergies Allergy Verified 10/18/22 17:33 [No Known Allergies*] Assessment & Plan Assessment & Plan (1) Depression: Status: Acute Code(s): F32.9 - Major depressive disorder, single episode, unspecified (2) Suicidal ideation: Status: Acute Code(s): R45.851 - Suicidal ideations (3) Opioid abuse: Status: Acute Code(s): F11.10 - Opioid abuse, uncomplicated Plan Patient is a 52 year old male with past hx of MDD and polysubstance use disorder who presented to the ER secondary to suicidal ideation with plan to OD on heroin d/t health and housing issues. Clarify medication hx and response contact outpt providers for coordination of care ? css stepdown ? sec 35 CV 15 min safety checks Continue home medications: Vibramycin 100mg PO BID Klonopin 1mg PO BID Remeron 30mg PO bedtime Zyprexa 20mg PO bedtime Trazodone 100mg PO bedtime Bupropion 75mg PO BID Zoloft 50mg PO daily 10/21: Continue tx plan. Reason for continued inpatient stay Substantial Risk for: harm to self, inability to function and rapid decompensation Time Spent With Patient Time: Total time managing care of this patient today ____ minutes.
[2022-10-21 20:32] VITALS: BP 120/73; PULSE 74; RESP 16; TEMP 36.6; O2SAT 99
[2022-10-21] MEDS: OLANZapine 10 MG TABLET 20 MG PO (20:35)
[2022-10-21] MEDS: Mirtazapine 30 MG TABLET PO (20:36)
[2022-10-21] MEDS: Ibuprofen 400 MG TABLET PO (20:36)
[2022-10-21] MEDS: traZODone HCL 100 MG TABLET PO (20:36)
--- NOTE | 2022-10-21 21:14 | PC.NURSE ---
dressing changed on L transmetatarsal incision, mild redness visible along incision line, no discharge noted. Applied triple abx ointment and dry sterile dressing per [employer] [employer]'s order. Patient reporting increased pain in this area, 01/18. Ibuprofen and Acetaminophen administered with some effect. Will notify provider.
[2022-10-22 06:00] VITALS: BP 120/64; PULSE 64; RESP 18; TEMP 36.7; O2SAT 97
[2022-10-22] MEDS: Doxycycline Monohydrate 100 MG CAPSULE PO ×2 (08:31→19:35)
[2022-10-22] MEDS: Sertraline HCL 50 MG TABLET PO (08:31)
[2022-10-22] MEDS: buPROPion HCL 75 MG TABLET PO ×2 (08:31→19:35)
[2022-10-22] MEDS: clonazePAM 1 MG TABLET PO ×2 (08:31→19:35)
--- NOTE | 2022-10-22 10:24 | P.PNPSI_ITS ---
Subjective Subjective Date of Service: 10/22/22 Reason For Visit: Recurrent major depression, PTSD, Opiate, Cocaine Interim History: Patient seen and discussed. Patient has been depressed and withdraw. Says he feels so, so He describes his depression as 7/10 but A little better . Says he has no SI today. He says he has pain from his toe amputation and that Motrin isn't helpful. He denies ETOH withdrawal. Denies SI/HI/AVH. Tolerating medications well. Review of Systems Review of Systems Constitutional : No Weight loss, No Fever, No Chills, No Night Sweats, No Fatigue, No Malaise ENT/Mouth : No Hearing loss, No Ear Pain, No Nasal Congestion, No Sinus Pain, No Hoarseness, No sore throat, No Rhinorrhea, No Swallowing Difficulty Eyes: No Eye Pain, No Swelling, No Redness, No Foreign Body, No Discharge, No Vision Changes Cardiovascular : No Chest Pain, No SOB, No Dyspnea on Exertion, No Orthopnea, No Edema, No Palpitations Respiratory : No Cough, No Sputum, No Wheezing, No Smoke Exposure, No Dyspnea Gastrointestinal : No Nausea, No Vomiting, No Diarrhea, No Constipation, No abdominal Pain, No Hematochezia, No Melena Genitourinary : no irregular bleeding, No Dysuria, No Urinary Frequency, No Hematuria, No Urinary Incontinence, No Urgency, No Flank Pain, No Urinary Flow Changes, No Hesitancy Musculoskeletal : No joint pain, No Myalgias, No Joint Swelling Skin : Healing amputation on the left foot, Neuro : No Weakness, No Numbness, No Paresthesias, No Loss of Consciousness, No Dizziness, No Headache Psych : No Anxiety/Panic, No Depression, denies suicidal or homicidal ideation Heme/Lymph: No Bruising, No Bleeding,No Lymphadenopathy Endocrine : No Polyuria, No Polydipsia, No Temperature Intolerance Constitutional: Reports as per HPI Eyes: Reports as per HPI Reports as per HPI Cardiovascular: Reports as per HPI Respiratory: Reports as per HPI Gastrointestinal: Reports as per HPI Genitourinary: Reports as per HPI Musculoskeletal: Reports as per HPI Skin/Breast: Reports as per HPI Reports as per HPI Psychiatric: Reports as per HPI Endocrine: Reports as per HPI Hematologic/Lymphatic: Reports as per HPI Allergic/Immunologic: Reports as per HPI Mental Status Exam Mental Status Exam Narrative: Pt is alert and oriented; behavior is cooperative, friendly and calm; patient is not in distress; dressed in casual attire; mood is described as so so and affect congruent, depressed; eye contact appropriate; Speech is normal rate, low volume but not pressured; psychomotor retardation present; thought process is organized and goal directed; Thought content is on tx; otherwise pertinent to relevant topics and without any delusional content, paranoid ideations or grandiosity; There is no evidence of perceptual disturbance. Patients insight and judgment appear poor. Patient denies HI at this time. Patient reports suicidal ideation, states he feels safe on the unit. Diagnostics Vital Signs (24Hr): Vital Signs - 24 hr 10/21/22 20:32 10/22/22 06:00 Temperature 98 F 98.1 F Pulse Rate 74 64 Respiratory Rate 16 18 Blood Pressure 120/73 120/64 Pulse Oximetry 99 97 Oxygen Delivery Method Room Air Room Air BMI result Body Mass Index 29.5 Labs 10/18/22 18:34 10/18/22 18:34 Labs: Laboratory Results - last 48 hr 10/20/22 08:31 Vitamin B12 263 Folate 8.0 TSH 0.28 L Free T4 0.80 Medications Medications Current Medications Acetaminophen (Acetaminophen 325 Mg Tablet) 650 mg PO Q6H PRN PRN Reason: Headache/Pain Mild Scale (1-3) Last Admin: 10/21/22 17:10 Dose: 650 mg Al Hydroxide/Mg Hydroxide (Magnesium Hydrox/Alum Hydrox 30 Ml Oral.Susp) 30 ml PO Q6H PRN PRN Reason: Heartburn/Nausea Bupropion HCl (Bupropion Hcl 75 Mg Tablet) 75 mg PO BID [facility] Last Admin: 10/22/22 08:31 Dose: 75 mg Clonazepam (Clonazepam 1 Mg Tablet) 1 mg PO BID [facility] Last Admin: 10/22/22 08:31 Dose: 1 mg Doxycycline Monohydrate (Doxycycline Monohydrate 100 Mg Capsule) 100 mg PO BID [facility] Last Admin: 10/22/22 08:31 Dose: 100 mg Hydroxyzine HCl (Hydroxyzine Hcl 50 Mg Tablet) 50 mg PO BID PRN PRN Reason: Anxiety Ibuprofen (Ibuprofen 400 Mg Tablet) 400 mg PO Q6H PRN PRN Reason: moderate to severe pain Last Admin: 10/21/22 20:36 Dose: 400 mg Magnesium Hydroxide (Milk Of Magnesia 30 Ml Oral.Susp) 30 ml PO DAILY PRN PRN Reason: Constipation Mirtazapine (Mirtazapine 30 Mg Tablet) 30 mg PO BEDTIME [facility] Last Admin: 10/21/22 20:36 Dose: 30 mg Olanzapine (Olanzapine 10 Mg Tablet) 20 mg PO BEDTIME [facility] Last Admin: 10/21/22 20:35 Dose: 20 mg Sertraline HCl (Sertraline Hcl 50 Mg Tablet) 50 mg PO DAILY [facility] Last Admin: 10/22/22 08:31 Dose: 50 mg Trazodone HCl (Trazodone Hcl 100 Mg Tablet) 100 mg PO BEDTIME [facility] Last Admin: 10/21/22 20:36 Dose: 100 mg Allergies Allergies Allergy/AdvReac Type Severity Reaction Status Date / Time No Known Allergies Allergy Verified 10/18/22 17:33 [No Known Allergies*] Assessment & Plan Assessment & Plan (1) Depression: Status: Acute Code(s): F32.9 - Major depressive disorder, single episode, unspecified (2) Suicidal ideation: Status: Acute Code(s): R45.851 - Suicidal ideations (3) Opioid abuse: Status: Acute Code(s): F11.10 - Opioid abuse, uncomplicated Plan Patient is a 52 year old male with past hx of MDD and polysubstance use disorder who presented to the ER secondary to suicidal ideation with plan to OD on heroin d/t health and housing issues. Clarify medication hx and response contact outpt providers for coordination of care ? css stepdown ? sec 35 CV 15 min safety checks Continue home medications: Vibramycin 100mg PO BID Klonopin 1mg PO BID Remeron 30mg PO bedtime Zyprexa 20mg PO bedtime Trazodone 100mg PO bedtime Bupropion 75mg PO BID Zoloft 50mg PO daily 10/21: Continue tx plan. 10/22: Increase Motrin. Otherwise encourage involvement in milieu and groups. Reason for continued inpatient stay Substantial Risk for: harm to self, inability to function and rapid decompensati on Time Spent With Patient Time: Total time managing care of this patient today ____ minutes.
[2022-10-22] MEDS: Acetaminophen 325 MG TABLET 650 MG PO ×2 (14:11→20:21)
[2022-10-22] MEDS: Ibuprofen 400 MG TABLET PO (14:11)
--- NOTE | 2022-10-22 14:14 | PC.NURSE ---
Dressing intact- no obvious drainage- has not showered today, states will change dressing when he showers.
[2022-10-22 16:20] VITALS: BP 128/75; PULSE 91; TEMP 36.3
--- NOTE | 2022-10-22 18:12 | PC.NURSE ---
Addendum entered by Carolyn Fish RN 10/22/22 18:15: 8/10 Original Note: Pt dressing changed after pt shower. Dressed with gauze and tegaderm. No swelling, no redness, no discharge noted. Pt has pain
[2022-10-22] MEDS: traZODone HCL 100 MG TABLET PO (19:35)
[2022-10-22] MEDS: OLANZapine 10 MG TABLET 20 MG PO (19:35)
[2022-10-22] MEDS: Mirtazapine 30 MG TABLET PO (19:35)
[2022-10-22] MEDS: Ibuprofen 600 MG TABLET PO (20:22)
[2022-10-23 06:00] VITALS: BP 120/72; PULSE 78; RESP 16; TEMP 36.6; O2SAT 98
[2022-10-23] MEDS: Doxycycline Monohydrate 100 MG CAPSULE PO ×2 (08:02→19:49)
[2022-10-23] MEDS: buPROPion HCL 75 MG TABLET PO (08:02)
[2022-10-23] MEDS: Sertraline HCL 50 MG TABLET PO (08:02)
[2022-10-23] MEDS: clonazePAM 1 MG TABLET PO ×2 (08:02→19:49)
[2022-10-23] MEDS: Ibuprofen 600 MG TABLET PO ×2 (08:32→19:47)
[2022-10-23] MEDS: Acetaminophen 325 MG TABLET 650 MG PO ×2 (08:33→19:46)
--- NOTE | 2022-10-23 15:41 | P.PNPSI_ITS ---
Documented by User: Flory River NP 10/23/22 15:48 Subjective Subjective Date of Service: 10/23/22 Reason For Visit: Recurrent major depression, PTSD, Opiate, Cocaine Subjective Notes: Conditional Voluntary Interim History: Reviewed in team. Patient reports he continues to feel depressed and anxious. Patient reports he is not sleeping well at night. Patient encouraged to not take naps during the day and attend groups. Patient was later observed attending psych group. T/W discussed with patient increasing his Zoloft and changing his Wellbutrin to daily. Patient agreed to medication changes. Medication Compliance: Yes Side effects from medications: No Attending Groups: Yes Review of Systems Medical Review of Systems: unchanged Review of Systems Constitutional: Reports as per HPI Eyes: Reports as per HPI Reports as per HPI Cardiovascular: Reports as per HPI Respiratory: Reports as per HPI Gastrointestinal: Reports as per HPI Genitourinary: Reports as per HPI Musculoskeletal: Reports as per HPI Skin/Breast: Reports as per HPI Reports as per HPI Psychiatric: Reports as per HPI Endocrine: Reports as per HPI Hematologic/Lymphatic: Reports as per HPI Allergic/Immunologic: Reports as per HPI Mental Status Exam Mental Status Exam Narrative: Pt is alert and oriented; behavior is cooperative and calm; patient is not in distress; dressed in casual attire; mood is described as okay and affect congruent; eye contact appropriate; Speech is normal rate, volume and prosody and not pressured; no psychomotor agitation/retardation present; thought process is organized and goal directed; Thought content is on tx; otherwise pertinent to relevant topics and without any delusional content, paranoid ideations or grandiosity; denies any SI/HI. There is no evidence of perceptual disturbance. P atients insight and judgment appear fair. Diagnostics Vital Signs (24Hr): Vital Signs - 24 hr 10/22/22 16:20 10/23/22 06:00 Temperature 97.4 F 97.8 F Pulse Rate 91 78 Respiratory Rate 16 Blood Pressure 128/75 120/72 Pulse Oximetry 98 Oxygen Delivery Method Room Air BMI result Body Mass Index 29.5 Labs 10/18/22 18:34 10/18/22 18:34 Medications Medications Current Medications Acetaminophen (Acetaminophen 325 Mg Tablet) 650 mg PO Q6H PRN PRN Reason: Headache/Pain Mild Scale (1-3) Last Admin: 10/23/22 08:33 Dose: 650 mg Al Hydroxide/Mg Hydroxide (Magnesium Hydrox/Alum Hydrox 30 Ml Oral.Susp) 30 ml PO Q6H PRN PRN Reason: Heartburn/Nausea Bupropion HCl (Bupropion Hcl Xl 300 Mg Tab.Er.24h) 300 mg PO DAILY [facility] Clonazepam (Clonazepam 1 Mg Tablet) 1 mg PO BID [facility] Last Admin: 10/23/22 08:02 Dose: 1 mg Doxycycline Monohydrate (Doxycycline Monohydrate 100 Mg Capsule) 100 mg PO BID [facility] Last Admin: 10/23/22 08:02 Dose: 100 mg Hydroxyzine HCl (Hydroxyzine Hcl 50 Mg Tablet) 50 mg PO BID PRN PRN Reason: Anxiety Ibuprofen (Ibuprofen 600 Mg Tablet) 600 mg PO Q6H PRN PRN Reason: moderate to severe pain Last Admin: 10/23/22 08:32 Dose: 600 mg Magnesium Hydroxide (Milk Of Magnesia 30 Ml Oral.Susp) 30 ml PO DAILY PRN PRN Reason: Constipation Mirtazapine (Mirtazapine 30 Mg Tablet) 30 mg PO BEDTIME [facility] Last Admin: 10/22/22 19:35 Dose: 30 mg Olanzapine (Olanzapine 10 Mg Tablet) 20 mg PO BEDTIME [facility] Last Admin: 10/22/22 19:35 Dose: 20 mg Sertraline HCl (Sertraline Hcl 25 Mg Tablet) 75 mg PO DAILY [facility] Trazodone HCl (Trazodone Hcl 100 Mg Tablet) 100 mg PO BEDTIME [facility] Last Admin: 10/22/22 19:35 Dose: 100 mg Allergies Allergies Allergy/AdvReac Type Severity Reaction Status Date / Time No Known Allergies Allergy Verified 10/18/22 17:33 [No Known Allergies*] Assessment & Plan Assessment & Plan (1) Depression: Status: Acute Code(s): F32.9 - Major depressive disorder, single episode, unspecified (2) Suicidal ideation: Status: Acute Code(s): R45.851 - Suicidal ideations (3) Opioid abuse: Status: Acute Code(s): F11.10 - Opioid abuse, uncomplicated Plan Patient is a 52 year old male with past hx of MDD and polysubstance use disorder who presented to the ER secondary to suicidal ideation with plan to OD on heroin d/t health and housing issues. Clarify medication hx and response contact outpt providers for coordination of care ? css stepdown ? sec 35 CV 15 min safety checks Continue home medications: Vibramycin 100mg PO BID Klonopin 1mg PO BID Remeron 30mg PO bedtime Zyprexa 20mg PO bedtime Trazodone 100mg PO bedtime Increase: Zoloft 75mg PO daily Changed Wellbutrin to Wellbutrin XR 300mg PO daily 10/21: Continue tx plan. 10/22: Increase Motrin. Otherwise encourage involvement in milieu and groups. 5:15: Patient reports he continues to feel depressed. Zoloft and Wellbutrin changed. Patient observed attending group today. Reason for continued inpatient stay Substantial Risk for: med/psych decompensation Time Spent With Patient Time: Total time managing care of this patient today ____ minutes. Documented by User: Deng Echeverria MD 10/23/22 16:04 Subjective Subjective Reason For Visit: Recurrent major depression, PTSD, Opiate, Cocaine Mental Status Exam Mental Status Exam Narrative: Pt is alert and oriented; behavior is cooperative and calm; patient is not in distress; dressed in casual attire; mood is described as okay and affect downcast; eye contact appropriate; Speech is normal rate, volume and prosody and not pressured; no psychomotor agitation/retardation present; thought process is organized and goal directed; Thought content is on tx; otherwise pertinent to relevant topics and without any delusional content, paranoid ideations or gran diosity; denies any SI/HI. There is no evidence of perceptual disturbance. Patients insight and judgment impaired but improving Diagnostics Labs 10/18/22 18:34 10/18/22 18:34 Assessment & Plan Assessment & Plan (1) Depression: Status: Acute Code(s): F32.9 - Major depressive disorder, single episode, unspecified (2) Suicidal ideation: Status: Acute Code(s): R45.851 - Suicidal ideations (3) Opioid abuse: Status: Acute Code(s): F11.10 - Opioid abuse, uncomplicated Patient educated on: diagnosis, medication risk/benefits and substance abuse Informed Consent: understands Reason for continued inpatient stay Substantial Risk for: harm to self
[2022-10-23 19:45] VITALS: BP 129/74; PULSE 106; TEMP 36.6
[2022-10-23] MEDS: Mirtazapine 30 MG TABLET PO (19:45)
[2022-10-23] MEDS: OLANZapine 10 MG TABLET 20 MG PO (19:46)
[2022-10-23] MEDS: traZODone HCL 100 MG TABLET PO (19:49)
[2022-10-24 06:00] VITALS: BP 135/67; PULSE 100; RESP 16; TEMP 36.9; O2SAT 99
[2022-10-24] MEDS: Doxycycline Monohydrate 100 MG CAPSULE PO ×2 (08:42→19:23)
[2022-10-24] MEDS: Sertraline HCL 25 MG TABLET 75 MG PO (08:42)
[2022-10-24] MEDS: clonazePAM 1 MG TABLET PO ×2 (08:42→19:23)
[2022-10-24] MEDS: buPROPion HCl XL 300 MG TAB.ER.24H PO (08:42)
--- NOTE | 2022-10-24 10:52 | P.PNPSI_ITS ---
Documented by User: Flory River NP 10/24/22 10:59 Subjective Subjective Date of Service: 10/24/22 Reason For Visit: Recurrent major depression, PTSD, Opiate, Cocaine Subjective Notes: Conditional Voluntary Interim History: Reviewed in team. Patient reports he continues to feel depressed and anxious. Patient reports he is not sleeping well at night due to pain from his foot. Patient is worried that the pain from his foot will never get better. Patient reports he has been trying to stay out of bed more. Medication Compliance: Yes Side effects from medications: No Attending Groups: Intermittent Review of Systems Medical Review of Systems: unchanged Review of Systems Constitutional: Reports as per HPI Eyes: Reports as per HPI Reports as per HPI Cardiovascular: Reports as per HPI Respiratory: Reports as per HPI Gastrointestinal: Reports as per HPI Genitourinary: Reports as per HPI Musculoskeletal: Reports as per HPI Skin/Breast: Reports as per HPI Reports as per HPI Psychiatric: Reports as per HPI Endocrine: Reports as per HPI Hematologic/Lymphatic: Reports as per HPI Allergic/Immunologic: Reports as per HPI Mental Status Exam Mental Status Exam Narrative: Pt is alert and oriented; behavior is cooperative and calm; patient is not in distress; dressed in casual attire; mood is described as fine and affect downcast; eye contact appropriate; Speech is normal rate, volume and prosody and not pressured; no psychomotor agitation/retardation present; thought process is organized and goal directed; Thought content is on tx; otherwise pertinent to relevant topics and without any delusional content, paranoid ideations or grandiosity; denies any SI/HI. There is no evidence of perceptual disturbance. Patients insight and judgment impaired but improving. Diagnostics Vital Signs (24Hr): Vital Signs - 24 hr 10/23/22 19:45 10/24/22 06:00 Temperature 97.9 F 98.4 F Pulse Rate 106 H 100 Respiratory Rate 16 Blood Pressure 129/74 135/67 Pulse Oximetry 99 Oxygen Delivery Method Room Air BMI result Body Mass Index 29.5 Labs 10/18/22 18:34 10/18/22 18:34 Medications Medications Current Medications Acetaminophen (Acetaminophen 325 Mg Tablet) 650 mg PO Q6H PRN PRN Reason: Headache/Pain Mild Scale (1-3) Last Admin: 10/23/22 19:46 Dose: 650 mg Al Hydroxide/Mg Hydroxide (Magnesium Hydrox/Alum Hydrox 30 Ml Oral.Susp) 30 ml PO Q6H PRN PRN Reason: Heartburn/Nausea Bupropion HCl (Bupropion Hcl Xl 300 Mg Tab.Er.24h) 300 mg PO DAILY [facility] Last Admin: 10/24/22 08:42 Dose: 300 mg Clonazepam (Clonazepam 1 Mg Tablet) 1 mg PO BID [facility] Last Admin: 10/24/22 08:42 Dose: 1 mg Doxycycline Monohydrate (Doxycycline Monohydrate 100 Mg Capsule) 100 mg PO BID [facility] Last Admin: 10/24/22 08:42 Dose: 100 mg Hydroxyzine HCl (Hydroxyzine Hcl 50 Mg Tablet) 50 mg PO BID PRN PRN Reason: Anxiety Ibuprofen (Ibuprofen 600 Mg Tablet) 600 mg PO Q6H PRN PRN Reason: moderate to severe pain Last Admin: 10/23/22 19:47 Dose: 600 mg Magnesium Hydroxide (Milk Of Magnesia 30 Ml Oral.Susp) 30 ml PO DAILY PRN PRN Reason: Constipation Mirtazapine (Mirtazapine 30 Mg Tablet) 30 mg PO BEDTIME [facility] Last Admin: 10/23/22 19:45 Dose: 30 mg Olanzapine (Olanzapine 10 Mg Tablet) 20 mg PO BEDTIME [facility] Last Admin: 10/23/22 19:46 Dose: 20 mg Sertraline HCl (Sertraline Hcl 25 Mg Tablet) 75 mg PO DAILY [facility] Last Admin: 10/24/22 08:42 Dose: 75 mg Trazodone HCl (Trazodone Hcl 100 Mg Tablet) 100 mg PO BEDTIME [facility] Last Admin: 10/23/22 19:49 Dose: 100 mg Allergies Allergies Allergy/AdvReac Type Severity Reaction Status Date / Time No Known Allergies Allergy Verified 10/18/22 17:33 [No Known Allergies*] Assessment & Plan Assessment & Plan (1) Depression: Status: Acute Code(s): F32.9 - Major depressive disorder, single episode, unspecified (2) Suicidal ideation: Status: Acute Code(s): R45.851 - Suicidal ideations (3) Opioid abuse: Status: Acute Code(s): F11.10 - Opioid abuse, uncomplicated Plan Patient is a 52 year old male with past hx of MDD and polysubstance use disorder who presented to the ER secondary to suicidal ideation with plan to OD on heroin d/t health and housing issues. Clarify medication hx and response contact outpt providers for coordination of care ? css stepdown ? sec 35 CV 15 min safety checks Continue home medications: Vibramycin 100mg PO BID Klonopin 1mg PO BID Remeron 30mg PO bedtime Zyprexa 20mg PO bedtime Trazodone 100mg PO bedtime Zoloft 75mg PO daily Wellbutrin XR 300mg PO daily Consult put into pain management for foot pain. 10/21: Continue tx plan. 10/22: Increase Motrin. Otherwise encourage involvement in milieu and groups. 10/23: Patient reports he continues to feel depressed. Zoloft and Wellbutrin changed. Patient observed attending group today. 10/24: Patient continues to reports feeling depressed. He is focused on his foot pain and is concerned that it will not subside. Consult put into pain management. Patient continues to hope he gets into a program for after discharge. Continue medications as ordered. Patient educated on: medication risk/benefits Informed Consent: further education needed Reason for continued inpatient stay Substantial Risk for: inability to function and med/psych decompensation Time Spent With Patient Time: Total time managing care of this patient today ____ minutes. Documented by User: Deng Echeverria MD 10/25/22 11:13 Subjective Subjective Reason For Visit: Recurrent major depression, PTSD, Opiate, Cocaine Interim History: Reviewed in team. Patient reports he continues to feel depressed and anxious. Patient reports he is not sleeping well at night due to pain from his foot. Patient is worried that the pain from his foot will never get better. Patient reports he has been trying to stay out of bed more. Diagnostics Labs 10/18/22 18:34 10/18/22 18:34 Assessment & Plan Assessment & Plan (1) Depression: Status: Acute Code(s): F32.9 - Major depressive disorder, single episode, unspecified (2) Suicidal ideation: Status: Acute Code(s): R45.851 - Suicidal ideations (3) Opioid abuse: Status: Acute Code(s): F11.10 - Opioid abuse, uncomplicated
--- NOTE | 2022-10-24 11:18 | PC.NURSE ---
Dressing changed, bacitracin, non adherent gauze and tape applied per provider's instructions. 3 small open areas with no drainage. Provider made aware, no further orders at this time.
[2022-10-24] MEDS: Acetaminophen 325 MG TABLET 650 MG PO ×2 (13:26→19:22)
[2022-10-24] MEDS: Ibuprofen 600 MG TABLET PO ×2 (13:27→19:21)
--- NOTE | 2022-10-24 13:50 | PC.NURSE ---
Wound consult ordered per DK for Left foot incision. Called in @ 13:50
--- NOTE | 2022-10-24 16:27 | P.CONWO_ITS ---
History of Present Illness Data of Consult Service Date: 10/24/22 Primary Care Provider: Flex Rascon MD [facility] Medical History (Updated 10/24/22 @ 16:29 by AJIT Saldana) Anxiety Chronic post-traumatic stress disorder (PTSD) Depression Frostbite of feet, bilateral Mood disorder Opioid dependence on agonist therapy Rhabdomyolysis Suicidal ideation Surgical History (Updated 10/23/22 @ 00:25 by Joshua Nieto) History of transmetatarsal amputation of left foot (09/20/22) Social History Household Members: None Housing: Homeless Do you presently have visiting nurse or other home services: No Alcohol intake: never Patient Tobacco Use Status: Former Tobacco user Quit Date: 11/07/20 Tobacco use type: Cigarette Cigarette Packs Per Day: 0.5 Cigarettes Per Day: 5 Years Smoked: 20 e-Cigarette/Vaping Use: Never Used Second Hand Smoke Exposure: No Use of substances other than those prescribed or required for medical reasons: No Substance Use Type: Crack/Cocaine Currently Displaying Signs/Symptoms of Drug Intoxication Withdrawal: No Any prior treatment program specific to substance use: No Have you been hit, kicked, punched, or otherwise hurt by someone within the past year? If so, by whom?: No Do you feel safe in your current relationship?: No Current Relationship Is there a partner from a previous relationship who is making you feel unsafe now?: No Are you made to feel afraid or neglected: No Advance Directives: Yes Advance Directives on File: Yes Advance Directives Date on File: 09/27/22 Healthcare Proxy: No Guardian: No Do you have thoughts of harming others: None Do you have a plan to hurt others: No Plan Recently lost weight without trying: No Eating poorly because of decreased appetite: No Nutrition Risks: No Nutritional Risk Poor oral hygiene: No service: No Current occupational status: unemployed Sexual orientation: Straight/Heterosexual Meds Allergies Allergy/AdvReac Type Severity Reaction Status Date / Time No Known Allergies Allergy Verified 10/18/22 17:33 [No Known Allergies*] Active Medications: Current Medications Acetaminophen (Acetaminophen 325 Mg Tablet) 650 mg PO Q6H PRN PRN Reason: Headache/Pain Mild Scale (1-3) Last Admin: 10/24/22 13:26 Dose: 650 mg Al Hydroxide/Mg Hydroxide (Magnesium Hydrox/Alum Hydrox 30 Ml Oral.Susp) 30 ml PO Q6H PRN PRN Reason: Heartburn/Nausea Bupropion HCl (Bupropion Hcl Xl 300 Mg Tab.Er.24h) 300 mg PO DAILY [facility] Last Admin: 10/24/22 08:42 Dose: 300 mg Clonazepam (Clonazepam 1 Mg Tablet) 1 mg PO BID [facility] Last Admin: 10/24/22 08:42 Dose: 1 mg Doxycycline Monohydrate (Doxycycline Monohydrate 100 Mg Capsule) 100 mg PO BID [facility] Last Admin: 10/24/22 08:42 Dose: 100 mg Hydroxyzine HCl (Hydroxyzine Hcl 50 Mg Tablet) 50 mg PO BID PRN PRN Reason: Anxiety Ibuprofen (Ibuprofen 600 Mg Tablet) 600 mg PO Q6H PRN PRN Reason: moderate to severe pain Last Admin: 10/24/22 13:27 Dose: 600 mg Magnesium Hydroxide (Milk Of Magnesia 30 Ml Oral.Susp) 30 ml PO DAILY PRN PRN Reason: Constipation Mirtazapine (Mirtazapine 30 Mg Tablet) 30 mg PO BEDTIME [facility] Last Admin: 10/23/22 19:45 Dose: 30 mg Olanzapine (Olanzapine 10 Mg Tablet) 20 mg PO BEDTIME [facility] Last Admin: 10/23/22 19:46 Dose: 20 mg Sertraline HCl (Sertraline Hcl 25 Mg Tablet) 75 mg PO DAILY [facility] Last Admin: 10/24/22 08:42 Dose: 75 mg Trazodone HCl (Trazodone Hcl 100 Mg Tablet) 100 mg PO BEDTIME [facility] Last Admin: 10/23/22 19:49 Dose: 100 mg Home Medications Medication Instructions Recorded Confirmed Last Taken Type bupropion HCl 150 mg tablet,12 hr 150 mg PO DAILY 08/31/22 10/18/22 10/17/22 09:00 History sustained-release clonazepam 1 mg tablet 1 mg PO BID 08/31/22 10/18/22 10/17/22 09:00 History hydroxyzine pamoate 50 mg capsule 50 mg PO BID PRN Anxiety 08/31/22 10/18/22 10/17/22 09:00 History mirtazapine 30 mg tablet 30 mg PO BEDTIME 08/31/22 10/18/22 10/17/22 09:00 History olanzapine 20 mg tablet 20 mg PO BEDTIME 08/31/22 10/18/22 10/17/22 22:00 History sertraline 100 mg tablet 100 mg PO DAILY 08/31/22 10/18/22 10/17/22 09:00 History trazodone 50 mg tablet 100 mg PO BEDTIME 08/31/22 10/18/22 10/17/22 22:00 History Physical Exam Vital Signs and Narrative: Vital Signs: Last Vital Signs Temp 98.4 F 10/24/22 06:00 Pulse 100 10/24/22 06:00 Resp 16 10/24/22 06:00 BP 135/67 10/24/22 06:00 Pulse Ox 99 10/24/22 06:00 O2 Del Method Room Air 10/24/22 06:00 BMI result Body Mass Index 29.5 Results Labs 10/18/22 18:34 10/18/22 18:34 Assessment and Plan (1) Non-pressure chronic ulcer of other part of left foot with fat layer exposed: Status: Acute Plan Patient evaluated by wound care nurse from wound clinic ([facility]) and photo reviewed. Agree with silver alginate dressings unless otherwise directed by surgery following recent TMA in September. Orders for silver alginate completed. Time Spent With Patient Time: Total time managing care of this patient today ____ minutes.
[2022-10-24 16:52] VITALS: BP 137/79; PULSE 78; RESP 16; TEMP 36.6; O2SAT 97
--- NOTE | 2022-10-24 18:24 | PC.NURSE ---
wound nurse changed pt left foot bandage with silver alginates, gauze and tape. 10/24/22 at 1500
[2022-10-24] MEDS: OLANZapine 10 MG TABLET 20 MG PO (19:21)
[2022-10-24] MEDS: traZODone HCL 100 MG TABLET PO (19:22)
[2022-10-24] MEDS: Mirtazapine 30 MG TABLET PO (19:23)
[2022-10-25] MEDS: clonazePAM 1 MG TABLET PO ×2 (08:34→20:12)
[2022-10-25] MEDS: Sertraline HCL 25 MG TABLET 75 MG PO (08:34)
[2022-10-25] MEDS: buPROPion HCl XL 300 MG TAB.ER.24H PO (08:34)
[2022-10-25] MEDS: Doxycycline Monohydrate 100 MG CAPSULE PO ×2 (08:34→20:11)
[2022-10-25 09:01] VITALS: BP 111/66; PULSE 96; RESP 16; TEMP 36.4; O2SAT 98
[2022-10-25] MEDS: Acetaminophen 325 MG TABLET 650 MG PO ×2 (12:12→19:05)
[2022-10-25] MEDS: Ibuprofen 600 MG TABLET PO ×2 (12:17→19:05)
--- NOTE | 2022-10-25 12:47 | P.PNPSI_ITS ---
Documented by User: Flory River NP 10/25/22 13:00 Subjective Subjective Date of Service: 10/25/22 Reason For Visit: Recurrent major depression, PTSD, Opiate, Cocaine Subjective Notes: Conditional Voluntary Interim History: Reviewed in team. Patient reports he is starting to feel less depressed and anxious. Patient stated, I think the medications are starting to work . Patient reports he continues to not sleep well at night due to pain from his foot. Patient states he is hoping to leave by Sunday . Medication Compliance: Yes Review of Systems Medical Review of Systems: unchanged Review of Systems Constitutional: Reports as per HPI Eyes: Reports as per HPI Reports as per HPI Cardiovascular: Reports as per HPI Respiratory: Reports as per HPI Gastrointestinal: Reports as per HPI Genitourinary: Reports as per HPI Musculoskeletal: Reports as per HPI Skin/Breast: Reports as per HPI Reports as per HPI Psychiatric: Reports as per HPI Endocrine: Reports as per HPI Hematologic/Lymphatic: Reports as per HPI Allergic/Immunologic: Reports as per HPI Mental Status Exam Mental Status Exam Narrative: Pt is alert and oriented; behavior is cooperative and calm; patient is not in distress; dressed in casual attire; mood is described as better and affect downcast; eye contact appropriate; Speech is normal rate, volume and prosody and not pressured; no psychomotor agitation/retardation present; thought process is organized and goal directed; Thought content is on tx; otherwise pertinent to relevant topics and without any delusional content, paranoid ideations or grandiosity; denies any SI/HI. There is no evidence of perceptual disturbance. Patients insight and judgment impaired but improving. Diagnostics Vital Signs (24Hr): Vital Signs - 24 hr 10/24/22 16:52 10/25/22 09:01 Temperature 97.8 F 97.5 F Pulse Rate 78 96 Respiratory Rate 16 16 Blood Pressure 137/79 111/66 Pulse Oximetry 97 98 Oxygen Delivery Method Room Air Room Air BMI result Body Mass Index 29.5 Labs 10/18/22 18:34 10/18/22 18:34 Medications Medications Current Medications Acetaminophen (Acetaminophen 325 Mg Tablet) 650 mg PO Q6H PRN PRN Reason: Headache/Pain Mild Scale (1-3) Last Admin: 10/25/22 12:12 Dose: 650 mg Al Hydroxide/Mg Hydroxide (Magnesium Hydrox/Alum Hydrox 30 Ml Oral.Susp) 30 ml PO Q6H PRN PRN Reason: Heartburn/Nausea Bupropion HCl (Bupropion Hcl Xl 300 Mg Tab.Er.24h) 300 mg PO DAILY [facility] Last Admin: 10/25/22 08:34 Dose: 300 mg Clonazepam (Clonazepam 1 Mg Tablet) 1 mg PO BID [facility] Last Admin: 10/25/22 08:34 Dose: 1 mg Doxycycline Monohydrate (Doxycycline Monohydrate 100 Mg Capsule) 100 mg PO BID [facility] Last Admin: 10/25/22 08:34 Dose: 100 mg Hydroxyzine HCl (Hydroxyzine Hcl 50 Mg Tablet) 50 mg PO BID PRN PRN Reason: Anxiety Ibuprofen (Ibuprofen 600 Mg Tablet) 600 mg PO Q6H PRN PRN Reason: moderate to severe pain Last Admin: 10/25/22 12:17 Dose: 600 mg Magnesium Hydroxide (Milk Of Magnesia 30 Ml Oral.Susp) 30 ml PO DAILY PRN PRN Reason: Constipation Mirtazapine (Mirtazapine 30 Mg Tablet) 30 mg PO BEDTIME [facility] Last Admin: 10/24/22 19:23 Dose: 30 mg Olanzapine (Olanzapine 10 Mg Tablet) 20 mg PO BEDTIME [facility] Last Admin: 10/24/22 19:21 Dose: 20 mg Sertraline HCl (Sertraline Hcl 25 Mg Tablet) 75 mg PO DAILY [facility] Last Admin: 10/25/22 08:34 Dose: 75 mg Trazodone HCl (Trazodone Hcl 100 Mg Tablet) 100 mg PO BEDTIME [facility] Last Admin: 10/24/22 19:22 Dose: 100 mg Allergies Allergies Allergy/AdvReac Type Severity Reaction Status Date / Time No Known Allergies Allergy Verified 10/18/22 17:33 [No Known Allergies*] Assessment & Plan Assessment & Plan (1) Depression: Status: Acute Code(s): F32.9 - Major depressive disorder, single episode, unspecified (2) Suicidal ideation: Status: Acute Code(s): R45.851 - Suicidal ideations (3) Opioid abuse: Status: Acute Code(s): F11.10 - Opioid abuse, uncomplicated Plan Patient is a 52 year old male with past hx of MDD and polysubstance use disorder who presented to the ER secondary to suicidal ideation with plan to OD on heroin d/t health and housing issues. Clarify medication hx and response contact outpt providers for coordination of care ? css stepdown ? sec 35 CV 15 min safety checks Continue home medications: Vibramycin 100mg PO BID Klonopin 1mg PO BID Remeron 30mg PO bedtime Zyprexa 20mg PO bedtime Trazodone 100mg PO bedtime Zoloft 75mg PO daily Wellbutrin XR 300mg PO daily Consult put into hospitalist for pain management of foot pain. 10/21: Continue tx plan. 10/22: Increase Motrin. Otherwise encourage involvement in milieu and groups. 10/23: Patient reports he continues to feel depressed. Zoloft and Wellbutrin changed. Patient observed attending group today. 10/24: Patient continues to reports feeling depressed. He is focused on his foot pain and is concerned that it will not subside. Consult put into pain management. Patient continues to hope he gets into a program for after discharge. Continue medications as ordered. 10/25: Patient reports he is starting to feel better and believes medications are working. He is hoping to be discharged on Sunday. Patient denies any thoughts of SI at this time. Continue treatment plan. Consult put in for hospitalist for consult of foot pain. Patient educated on: therapeutic strategies Informed Consent: understands Reason for continued inpatient stay Substantial Risk for: med/psych decompensation Time Spent With Patient Time: Total time managing care of this patient today ____ minutes. Documented by User: Deng Echeverria MD 10/26/22 10:02 Subjective Subjective Reason For Visit: Recurrent major depression, PTSD, Opiate, Cocaine Mental Status Exam Mental Status Exam Narrative: Pt is alert and oriented; behavior is cooperative and calm; patient is not in distress; dressed in casual attire; mood is described as better and affect downcast; eye contact appropriate; Speech is normal rate, volume and prosody and not pressured; no psychomotor agitation/retardation present; thought process is organized and goal directed; Thought content is on tx; otherwise pertinent to relevant topics and without any delusional content, paranoid ideations or grandi osity; denies any SI/HI. There is no evidence of perceptual disturbance. Patients insight and judgment impaired but improved and adequate Diagnostics Labs 10/18/22 18:34 10/18/22 18:34 Assessment & Plan Assessment & Plan (1) Depression: Status: Acute Code(s): F32.9 - Major depressive disorder, single episode, unspecified (2) Suicidal ideation: Status: Acute Code(s): R45.851 - Suicidal ideations (3) Opioid abuse: Status: Acute Code(s): F11.10 - Opioid abuse, uncomplicated Plan Patient is a 52 year old male with past hx of MDD and polysubstance use disorder who presented to the ER secondary to suicidal ideation with plan to OD on heroin d/t health and housing issues. Clarify medication hx and response contact outpt providers for coordination of care CV 15 min safety checks Continue home medications: Vibramycin 100mg PO BID Klonopin 1mg PO BID Remeron 30mg PO bedtime Zyprexa 20mg PO bedtime Trazodone 100mg PO bedtime Zoloft 75mg PO daily Wellbutrin XR 300mg PO daily Consult put into hospitalist for pain management of foot pain. 10/21: Continue tx plan. 10/22: Increase Motrin. Otherwise encourage involvement in milieu and groups. 10/23: Patient reports he continues to feel depressed. Zoloft and Wellbutrin changed. Patient observed attending group today. 10/24: Patient continues to reports feeling depressed. He is focused on his foot pain and is concerned that it will not subside. Consult put into pain management. Patient continues to hope he gets into a program for after discharge. Continue medications as ordered. 10/25: Patient reports he is starting to feel better and believes medications are working. He is hoping to be discharged on Sunday. Patient denies any thoughts of SI at this time. Continue treatment plan. Consult put in for pain management consult of foot pain. Patient educated on: diagnosis Reason for continued inpatient stay Substantial Risk for: stable for discharge
[2022-10-25 18:34] VITALS: BP 127/76; PULSE 89; TEMP 36.6
--- NOTE | 2022-10-25 19:38 | P.CONHOSP_ITS ---
History of Present Illness Data of Consult Service Date: 10/25/22 Primary Care Provider: Flex Rascon MD [facility] Reason for consult: Left foot pain Patient is a 52-year-old male with PMH significant for anxiety, depression, opioid use disorder, and recent s/p TMA of left foot and great toe of right foot on 09/20/2022 who was admitted to psychiatry for increasing depression and SI with plan to OD on heroin d/t health and housing issues. Medical consult for left foot pain and insomnia. Patient states that he has been having constant pain in his left foot for the past 3 weeks. Patient states that a few weeks after his surgery his foot was not painful. Patient describes his pain as alternating between sharp and shooting pain, and then an achyi/throbbing pain. Pain is located mostly on the lateral front side of foot. Pain seems to worsen at night and has prevented the patient from sleeping. Patient denies fever, chills, nausea, vomiting, abdominal pain. No chest pain/pressure, palpitations. No shortness of breath. Denies lower leg edema. Review of Systems Review of Systems: Left foot pain Insomnia Denies fever, chills No nausea, vomiting, abdominal pain Denies chest pain/pressure, palpitations No shortness of breath Yes all other systems are reviewed and are negative [facility] Medical History Anxiety Chronic post-traumatic stress disorder (PTSD) Depression Frostbite of feet, bilateral Mood disorder Opioid dependence on agonist therapy Rhabdomyolysis Suicidal ideation Surgical History History of transmetatarsal amputation of left foot (09/20/22) Social History Household Members: None Housing: Homeless Do you presently have visiting nurse or other home services: No Alcohol intake: never Patient Tobacco Use Status: Former Tobacco user Quit Date: 11/07/20 Tobacco use type: Cigarette Cigarette Packs Per Day: 0.5 Cigarettes Per Day: 5 Years Smoked: 20 e-Cigarette/Vaping Use: Never Used Second Hand Smoke Exposure: No Use of substances other than those prescribed or required for medical reasons: No Substance Use Type: Crack/Cocaine Currently Displaying Signs/Symptoms of Drug Intoxication Withdrawal: No Any prior treatment program specific to substance use: No Have you been hit, kicked, punched, or otherwise hurt by someone within the past year? If so, by whom?: No Do you feel safe in your current relationship?: No Current Relationship Is there a partner from a previous relationship who is making you feel unsafe now?: No Are you made to feel afraid or neglected: No Advance Directives: Yes Advance Directives on File: Yes Advance Directives Date on File: 09/27/22 Healthcare Proxy: No Guardian: No Do you have thoughts of harming others: None Do you have a plan to hurt others: No Plan Recently lost weight without trying: No Eating poorly because of decreased appetite: No Nutrition Risks: No Nutritional Risk Poor oral hygiene: No service: No Current occupational status: unemployed Sexual orientation: Straight/Heterosexual Meds Allergies Allergy/AdvReac Type Severity Reaction Status Date / Time No Known Allergies Allergy Verified 10/18/22 17:33 [No Known Allergies*] Active Medications: Current Medications Acetaminophen (Acetaminophen 325 Mg Tablet) 650 mg PO Q6H PRN PRN Reason: Headache/Pain Mild Scale (1-3) Last Admin: 10/25/22 19:05 Dose: 650 mg Al Hydroxide/Mg Hydroxide (Magnesium Hydrox/Alum Hydrox 30 Ml Oral.Susp) 30 ml PO Q6H PRN PRN Reason: Heartburn/Nausea Bupropion HCl (Bupropion Hcl Xl 300 Mg Tab.Er.24h) 300 mg PO DAILY [facility] Last Admin: 10/25/22 08:34 Dose: 300 mg Clonazepam (Clonazepam 1 Mg Tablet) 1 mg PO BID [facility] Last Admin: 10/25/22 08:34 Dose: 1 mg Doxycycline Monohydrate (Doxycycline Monohydrate 100 Mg Capsule) 100 mg PO BID [facility] Last Admin: 10/25/22 08:34 Dose: 100 mg Hydroxyzine HCl (Hydroxyzine Hcl 50 Mg Tablet) 50 mg PO BID PRN PRN Reason: Anxiety Ibuprofen (Ibuprofen 600 Mg Tablet) 600 mg PO Q6H PRN PRN Reason: moderate to severe pain Last Admin: 10/25/22 19:05 Dose: 600 mg Magnesium Hydroxide (Milk Of Magnesia 30 Ml Oral.Susp) 30 ml PO DAILY PRN PRN Reason: Constipation Mirtazapine (Mirtazapine 30 Mg Tablet) 30 mg PO BEDTIME [facility] Last Admin: 10/24/22 19:23 Dose: 30 mg Olanzapine (Olanzapine 10 Mg Tablet) 20 mg PO BEDTIME [facility] Last Admin: 10/24/22 19:21 Dose: 20 mg Sertraline HCl (Sertraline Hcl 25 Mg Tablet) 75 mg PO DAILY [facility] Last Admin: 10/25/22 08:34 Dose: 75 mg Trazodone HCl (Trazodone Hcl 100 Mg Tablet) 100 mg PO BEDTIME [facility] Last Admin: 10/24/22 19:22 Dose: 100 mg Home Medications Medication Instructions Recorded Confirmed Last Taken Type bupropion HCl 150 mg tablet,12 hr 150 mg PO DAILY 08/31/22 10/18/22 10/17/22 09:00 History sustained-release clonazepam 1 mg tablet 1 mg PO BID 08/31/22 10/18/22 10/17/22 09:00 History hydroxyzine pamoate 50 mg capsule 50 mg PO BID PRN Anxiety 08/31/22 10/18/22 10/17/22 09:00 History mirtazapine 30 mg tablet 30 mg PO BEDTIME 08/31/22 10/18/22 10/17/22 09:00 History olanzapine 20 mg tablet 20 mg PO BEDTIME 08/31/22 10/18/22 10/17/22 22:00 History sertraline 100 mg tablet 100 mg PO DAILY 08/31/22 10/18/22 10/17/22 09:00 History trazodone 50 mg tablet 100 mg PO BEDTIME 08/31/22 10/18/22 10/17/22 22:00 History Physical Exam Vital Signs and Narrative: Vital Signs: Last Vital Signs Temp 98 F 10/25/22 18:34 Pulse 89 10/25/22 18:34 Resp 16 10/25/22 09:01 BP 127/76 10/25/22 18:34 Pulse Ox 98 10/25/22 09:01 O2 Del Method Room Air 10/25/22 09:01 BMI result Body Mass Index 29.5 General: AOx3, no acute distress Resp: CTA bilaterally CVS: S1, S2, RRR GI: +BS, NT, no distention Skin: No rash Neuro: Cranial nerves II-XII grossly intact bilaterally. Motor grossly intact bilaterally Extremities: No edema. Area of erythema at front of left foot, no purulent or malodorous discharge. No warmth or signs of streaking. No signs of cellulitis. See pictures below. Psych: Appropriate affect Results Labs 10/18/22 18:34 10/18/22 18:34 Assessment and Plan (1) Left foot pain: Status: Acute Plan Patient is a 52-year-old male with PMH significant for anxiety, depression, opioid use disorder, and recent s/p TMA of left foot and great toe of right foot on 09/20/2022 who was admitted to psychiatry for increasing depression and SI with plan to OD on heroin d/t health and housing issues. Medical consult for left foot pain and insomnia. Left foot pain Pt has been complaining of left foot pain that is alternatively sharp, shooting and dull, throbbing, worse at night No acute signs of infection: No fever, no purulent drainage from surgical site, surgical incision seems to be healing well, skin not warm Will check CBC, BMP, CRP, ESR Gabapentin 200 mg qd at bedtime Thank you for allowing us to participate in the care of this patient. Will continue to follow for now pending labs and response to gabapentin. Please let us know if there are any acute complaints or questions. Time Spent With Patient Time: Total time managing care of this patient today ____ minutes.
[2022-10-25] MEDS: OLANZapine 10 MG TABLET 20 MG PO (20:11)
[2022-10-25] MEDS: Mirtazapine 30 MG TABLET PO (20:12)
[2022-10-25] MEDS: traZODone HCL 100 MG TABLET PO (20:12)
[2022-10-25] MEDS: Gabapentin 100 MG CAPSULE 200 MG PO (20:12)
[2022-10-25 20:56] LABS: Hematocrit 29.1 % (42.0-52.0); Hemoglobin 9.3 g/dl (14.0-18.0); Mean Corpuscular Hemoglobin 28.1 pg (27.0-33.0); Mean Corpuscular Volume 87.9 fL (80.0-98.0); Mean Platelet Volume 8.6 fL (9.4-12.4); Platelet Count 422 X10*3/uL (160-400); Red Blood Count 3.31 X10*6/uL (4.60-5.80); Red Cell Distribution Width 15.7 % (11.0-16.0)
[2022-10-25 21:23] LABS: Anion Gap 14 (12-20); Blood Urea Nitrogen 19 mg/dL (9-16); C Reactive Protein 1.06 mg/dL (< or = 0.50); Calcium 9.1 mg/dL (8.4-10.2); Carbon Dioxide 25 mmol/L (22-29); Chloride 107 mmol/L (96-108); Creatinine Clr Calc Pharmacy 75.7; Estimated Glomerular Filt Rate 60; Glucose Random 139 mg/dL (60-115); Potassium 4.8 mmol/L (3.3-5.1); Sodium 141 mmol/L (135-145)
[2022-10-25 21:30] LABS: Erythrocyte Sedimentation Rate 38 MM/HR (0-15)
[2022-10-26] MEDS: clonazePAM 1 MG TABLET PO ×2 (08:23→19:13)
[2022-10-26] MEDS: Sertraline HCL 25 MG TABLET 75 MG PO (08:23)
[2022-10-26] MEDS: Doxycycline Monohydrate 100 MG CAPSULE PO ×2 (08:24→19:13)
[2022-10-26] MEDS: buPROPion HCl XL 300 MG TAB.ER.24H PO (08:24)
[2022-10-26 08:41] VITALS: BP 116/68; PULSE 107; RESP 18; TEMP 36.5; O2SAT 98
[2022-10-26 08:44] VITALS: BMI 29.5
[2022-10-26] MEDS: Acetaminophen 325 MG TABLET 650 MG PO (09:31)
[2022-10-26] MEDS: Ibuprofen 600 MG TABLET PO (09:32)
--- NOTE | 2022-10-26 10:03 | P.PNPSI_ITS ---
Subjective Subjective Date of Service: 10/26/22 Reason For Visit: Recurrent major depression, PTSD, Opiate, Cocaine Interim History: Met with patient; discussed with team Patient reports that he is in a good mood feels ready for discharge tomorrow. Reports he slept well last night and that the gabapentin resolved foot pain. Patient has no requests and no complaints Mental Status Exam Mental Status Exam Narrative: Pt is alert and oriented; behavior is cooperative and calm; patient is not in distress; dressed in casual attire; mood is described as good and affect congruent, calm, brighter; eye contact appropriate; Speech is normal rate, volume and prosody and not pressured; no psychomotor agitation/retardation present; thought process is organized and goal directed; Thought content is on tx, discharge; otherwise pertinent to relevant topics and without any delusional content, paranoid ideations or grandiosity; denies any SI/HI. There is no evidence of perceptual disturbance. Patients insight and judgment impaired but improved and adequate Diagnostics Vital Signs (24Hr): Vital Signs - 24 hr 10/25/22 18:34 10/26/22 08:41 Temperature 98 F 97.7 F Pulse Rate 89 107 H Respiratory Rate 18 Blood Pressure 127/76 116/68 Pulse Oximetry 98 Oxygen Delivery Method Room Air BMI result Body Mass Index 29.5 Labs 10/25/22 20:37 10/25/22 20:37 Labs: Laboratory Results - last 48 hr 10/25/22 10/25/22 10/25/22 20:37 20:37 20:37 WBC 9.0 RBC 3.31 L Hgb 9.3 L Hct 29.1 L MCV 87.9 MCH 28.1 MCHC 32.0 RDW 15.7 Plt Count 422 H MPV 8.6 L Absolute Nucleated RBC 0.000 Nucleated RBC % (auto) 0.0 ESR 38 H Sodium 141 Potassium 4.8 D Chloride 107 Carbon Dioxide 25 Anion Gap 14 BUN 19 H Creatinine 1.27 Estim Creat Clear Calc 75.7 Estimated GFR 60 Random Glucose 139 H Calcium 9.1 C-Reactive Protein 1.06 H C-React Prot High Sens 10/25/22 20:37 WBC RBC Hgb Hct MCV MCH MCHC RDW Plt Count MPV Absolute Nucleated RBC Nucleated RBC % (auto) ESR Sodium Potassium Chloride Carbon Dioxide Anion Gap BUN Creatinine Estim Creat Clear Calc Estimated GFR Random Glucose Calcium C-Reactive Protein C-React Prot High Sens Cancelled Medications Medications Current Medications Acetaminophen (Acetaminophen 325 Mg Tablet) 650 mg PO Q6H PRN PRN Reason: Headache/Pain Mild Scale (1-3) Last Admin: 10/26/22 09:31 Dose: 650 mg Al Hydroxide/Mg Hydroxide (Magnesium Hydrox/Alum Hydrox 30 Ml Oral.Susp) 30 ml PO Q6H PRN PRN Reason: Heartburn/Nausea Bupropion HCl (Bupropion Hcl Xl 300 Mg Tab.Er.24h) 300 mg PO DAILY [facility] Last Admin: 10/26/22 08:24 Dose: 300 mg Clonazepam (Clonazepam 1 Mg Tablet) 1 mg PO BID [facility] Last Admin: 10/26/22 08:23 Dose: 1 mg Doxycycline Monohydrate (Doxycycline Monohydrate 100 Mg Capsule) 100 mg PO BID [facility] Last Admin: 10/26/22 08:24 Dose: 100 mg Gabapentin (Gabapentin 100 Mg Capsule) 200 mg PO BEDTIME [facility] Last Admin: 10/25/22 20:12 Dose: 200 mg Hydroxyzine HCl (Hydroxyzine Hcl 50 Mg Tablet) 50 mg PO BID PRN PRN Reason: Anxiety Ibuprofen (Ibuprofen 600 Mg Tablet) 600 mg PO Q6H PRN PRN Reason: moderate to severe pain Last Admin: 10/26/22 09:32 Dose: 600 mg Magnesium Hydroxide (Milk Of Magnesia 30 Ml Oral.Susp) 30 ml PO DAILY PRN PRN Reason: Constipation Mirtazapine (Mirtazapine 30 Mg Tablet) 30 mg PO BEDTIME [facility] Last Admin: 10/25/22 20:12 Dose: 30 mg Olanzapine (Olanzapine 10 Mg Tablet) 20 mg PO BEDTIME [facility] Last Admin: 10/25/22 20:11 Dose: 20 mg Sertraline HCl (Sertraline Hcl 25 Mg Tablet) 75 mg PO DAILY [facility] Last Admin: 10/26/22 08:23 Dose: 75 mg Trazodone HCl (Trazodone Hcl 100 Mg Tablet) 100 mg PO BEDTIME [facility] Last Admin: 10/25/22 20:12 Dose: 100 mg Allergies Allergies Allergy/AdvReac Type Severity Reaction Status Date / Time No Known Allergies Allergy Verified 10/18/22 17:33 [No Known Allergies*] Assessment & Plan Assessment & Plan (1) Depression: Status: Acute Code(s): F32.9 - Major depressive disorder, single episode, unspecified (2) Suicidal ideation: Status: Acute Code(s): R45.851 - Suicidal ideations (3) Opioid abuse: Status: Acute Code(s): F11.10 - Opioid abuse, uncomplicated Plan Patient is a 52 year old male with past hx of MDD and polysubstance use disorder who presented to the ER secondary to suicidal ideation with plan to OD on heroin d/t health and housing issues. Clarify medication hx and response contact outpt providers for coordination of care CV 15 min safety checks Continue home medications: Vibramycin 100mg PO BID Klonopin 1mg PO BID Remeron 30mg PO bedtime Zyprexa 20mg PO bedtime Trazodone 100mg PO bedtime Zoloft 75mg PO daily Wellbutrin XR 300mg PO daily Consult put into hospitalist for pain management of foot pain. 10/21: Continue tx plan. 10/22: Increase Motrin. Otherwise encourage involvement in milieu and groups. 10/23: Patient reports he continues to feel depressed. Zoloft and Wellbutrin changed. Patient observed attending group today. 10/24: Patient continues to reports feeling depressed. He is focused on his foot pain and is concerned that it will not subside. Consult put into pain management. Patient continues to hope he gets into a program for after discharge. Continue medications as ordered. 10/25: Patient reports he is starting to feel better and believes medications are working. He is hoping to be discharged on Sunday. Patient denies any thoughts of SI at this time. Continue treatment plan. Consult put in for pain management consult of foot pain. 10/26: Patient continues to report being a good mood, no SI and feels ready for discharge. Would like to continue with gabapentin saying it helped him sleep. [employer] reviewed hospitalist PA note and improved lab work. Patient is at baseline and is requesting discharge. He continues to minimize his alcoholism/substance abuse and of course remains at risk for relapse, however this is a chronic problem for patient that will not resolve with longer stay on inpatient unit. Patient is not in imminent risk for harm to self or others and request for discharge honored. Event Note; Date of Service: 10/26/22 ?Avis Baron~ Patient seen for follow-up for left foot pain and insomnia started on gabapentin on 10/25/2022.? Patient states that the gabapentin helped with pain and he was able to sleep through the night.? Patient is no longer complaining of left foot pain.? Labs reviewed, significant for no leukocytosis, ESR of 38 which is decreased from 92 on 10/18/2022, and C reactive protein of 1.06 which is decreased from 18.04 on 10/18/2022.? Left foot x-ray on 10/19/2019 could not exclude acute osteomyelitis or but showed no significant changes since studies on and 10/13/2022.? Given improvements to patient's inflammatory markers well not on antibiotics, as well as relatively benign physical examination, there is no evidence of acute osteomyelitis at this time and no indication to warrant getting an MRI of the left foot.? Plan is to continue with gabapentin at bedtime for neuropathy.? If patient's pain returns or foot become erythematous and/or has purulent discharge, please contact us again. Patient educated on: diagnosis, medication risk/benefits and medical condition Informed Consent: understands Reason for continued inpatient stay Substantial Risk for: stable for discharge Time Spent With Patient Time: Total time managing care of this patient today ____ minutes.
--- NOTE | 2022-10-26 13:55 | P.EN_ITS ---
Event Note Date of Service: 10/26/22 Event Note: Patient seen for follow-up for left foot pain and insomnia started on gabapentin on 10/25/2022. Patient states that the gabapentin helped with pain and he was able to sleep through the night. Patient is no longer complaining of left foot pain. Labs reviewed, significant for no leukocytosis, ESR of 38 which is decreased from 92 on 10/18/2022, and C reactive protein of 1.06 which is decreased from 18.04 on 10/18/2022. Left foot x-ray on 10/19/2019 could not exclu de acute osteomyelitis or but showed no significant changes since studies on 10/16,2022 and 10/13/2022. Given improvements to patient's inflammatory markers well not on antibiotics, as well as relatively benign physical examination, there is no evidence of acute osteomyelitis at this time and no indication to warrant getting an MRI of the left foot. Plan is to continue with gabapentin at bedtime for neuropathy. If patient's pain returns or foot become erythematous and/or has purulent discharge, please contact us again. Thank you for allowing us to participate in the care of this patient. Signing off at this time. Please let us know if there are any acute complaints or questions. Time Spent With Patient Time: Total time managing care of this patient today ____ minutes.
[2022-10-26 15:40] VITALS: BP 112/59; PULSE 106; TEMP 36.3
[2022-10-26] MEDS: OLANZapine 10 MG TABLET 20 MG PO (19:13)
[2022-10-26] MEDS: Mirtazapine 30 MG TABLET PO (19:13)
[2022-10-26] MEDS: Gabapentin 100 MG CAPSULE 200 MG PO (19:13)
[2022-10-26] MEDS: traZODone HCL 100 MG TABLET PO (19:13)
[2022-10-27] MEDS: Doxycycline Monohydrate 100 MG CAPSULE PO (07:58)
[2022-10-27] MEDS: Sertraline HCL 25 MG TABLET 75 MG PO (07:58)
[2022-10-27] MEDS: buPROPion HCl XL 300 MG TAB.ER.24H PO (07:58)
[2022-10-27] MEDS: clonazePAM 1 MG TABLET PO (07:59)
[2022-10-27 08:09] VITALS: BP 107/67; PULSE 110; RESP 18; TEMP 36.4; O2SAT 98
--- NOTE | 2022-10-27 09:30 | P.DS_ITS ---
DS: Providers Provider Date of Service: 10/27/22 Date of admission: 10/19/22 16:03 Date of discharge: 10/27/22 Primary care physician: Flex Rascon MD Admitting clinician: Flory River Consults: 10/24/22 13:46 Consult to Wound Care Routine Consulting Provider: Gemini Figueroa Reason for consultation: L foot slow healing surgical incision Has provider been notified: Yes 10/25/22 12:55 Consult to Hospitalist Routine Comment: Consulting Provider: Hospitalist Reason For Exam: Pain Managment for foot.Cant sleep/depressed. Attending physician on discharge: Deng Echeverria DS: Diagnosis Discharge Diagnosis (1) Depression: Status: Acute (2) Suicidal ideation: Status: Acute (3) Opioid abuse: Status: Acute DS: Medications Discharge Medications Home Medications: Previous Rx's Medication Instructions Recorded bupropion HCl 300 mg 24 hr tablet, 300 mg PO DAILY 30 days #30 tabs 10/27/22 extended release clonazepam 1 mg tablet 1 mg PO BID 14 days #28 tabs 10/27/22 gabapentin 100 mg capsule 200 mg PO BEDTIME 30 days #60 caps 10/27/22 hydroxyzine pamoate 50 mg capsule 50 mg PO BID PRN Anxiety 30 days 10/27/22 #60 caps mirtazapine 30 mg tablet 30 mg PO BEDTIME 30 days #30 tabs 10/27/22 olanzapine 20 mg tablet 20 mg PO BEDTIME 30 days #30 tabs 10/27/22 sertraline 25 mg tablet 75 mg PO DAILY 30 days #90 tabs 10/27/22 trazodone 50 mg tablet 100 mg PO BEDTIME PRN insomnia 30 10/27/22 days #60 tabs Mental Status Exam Mental Status Exam Narrative: Pt is alert and oriented; behavior is cooperative and calm; patient is not in distress; dressed in casual attire; mood is described as good and affect congruent, calm, brighter; eye contact appropriate; Speech is normal rate, volume and prosody and not pressured; no psychomotor agitation/retardation present; thought process is organized and goal directed; Thought content is on tx, discharge; otherwise pertinent to relevant topics and without any delusional content, paranoid ideations or grandiosity; denies any SI/HI. There is no evidence of perceptual disturbance. Patients insight and judgment impaired but improved and adequate Data Data Completed and Pending Completed studies during hospitalization [Text1]: 10/20/22 10/20/22 10/25/22 08:31 08:31 20:37 WBC 9.0 RBC 3.31 L Hgb 9.3 L Hct 29.1 L MCV 87.9 MCH 28.1 MCHC 32.0 RDW 15.7 Plt Count 422 H MPV 8.6 L Absolute Nucleated RBC 0.000 Nucleated RBC % (auto) 0.0 ESR Sodium Potassium Chloride Carbon Dioxide Anion Gap BUN Creatinine Estim Creat Clear Calc Estimated GFR Random Glucose Estimat Average Glucose 100 Hemoglobin A1c % 5.1 Calcium Magnesium 1.8 C-Reactive Protein C-React Prot High Sens Triglycerides 196 Cholesterol 181 LDL Cholesterol, Calc 119 HDL Cholesterol 23 Vitamin B12 263 Folate 8.0 TSH 0.28 L Free T4 0.80 10/25/22 10/25/22 10/25/22 20:37 20:37 20:37 WBC RBC Hgb Hct MCV MCH MCHC RDW Plt Count MPV Absolute Nucleated RBC Nucleated RBC % (auto) ESR 38 H Sodium 141 Potassium 4.8 D Chloride 107 Carbon Dioxide 25 Anion Gap 14 BUN 19 H Creatinine 1.27 Estim Creat Clear Calc 75.7 Estimated GFR 60 Random Glucose 139 H Estimat Average Glucose Hemoglobin A1c % Calcium 9.1 Magnesium C-Reactive Protein 1.06 H C-React Prot High Sens Cancelled Triglycerides Cholesterol LDL Cholesterol, Calc HDL Cholesterol Vitamin B12 Folate TSH Free T4 10/18/22 18:33 Blood - Venous Blood Culture - Final No growth after 5 days. 10/18/22 18:33 Blood - Venous Blood Culture - Final No growth after 5 days. DS: Summary Hospital Course Hospital Course: Patient is a 52 year old male with past hx of MDD and polysubstance use disorder, s/p recent left foot toe amputations, who presented to the ER secondary to suicidal ideation with plan to OD on heroin d/t health and housing issues. Hospital course: on admission, pt depressed but SI resolved; he was restarted on previous home medications of Zoloft, Wellbutrin, remeron and Zyprexa. Pt's mood improved and depression abated. He was somewhat reticent and mostly kept to himself, not attending groups; pt minimized his struggles with addiction and did not want help with substance abuse program or MAT. Rather pt decided to work on his sobriety on his own in the community and made plans to live at his fathers on d ischarge. Patient remained in good behavioral and impulse control and was appropriate w/ peers and staff. He had left foot pain from recent toe x 5 amputations and hospitalist consulted who started him on Gabapentin at bedtime which pt said help; discussed with patient who will follow-up with orthopedic surgeon. Primary provider decided to continue patient on Clonazepam since he was getting it consistency as outpatient and would continue to be so post discharge. Patient requested discharge. He reported being in a good mood and was thankful for help received.? Patient is at baseline. And though he continues to minimize his alcoholism/substance abuse and of course remains at risk for relapse, this is a chronic problem for patient that will not resolve with longer stay on inpatient unit.? Patient is not in imminent risk for harm to self or others and request for discharge honored. Time spent discussing smoking cessation with patient: 3 to 10 minutes Status at Discharge Functional status at discharge: independent ambulation Overall status at discharge: patient is back to baseline Time Spent with Patient Time attestation: Total time managing care of this patient today ____ minutes. Time spent: Less than 30 minutes Discharge Plan Discharge Anticipated Discharge Date/Time: 10/27/22 11:00 Patient Disposition: Senior Living Discharge Diagnosis: MDD, recurrent, moderate, in full remission Referrals: Dr. Greer Follow Up [Other] - 10/31/22 10:30 am [facility] Therapy [Other] - 11/02/22 2:00 pm (Telehealth) [facility] Counseling Psyche Provider [Other] - 1 Week Flex Rascon MD [Primary Care Provider] - 1 Week (left messagefor toby back or reach out to pt.) Discharge Medications: New bupropion HCl 300 mg Tablet Extended Release 24 Hr 300 mg PO DAILY 30 Days Qty: 30 0RF gabapentin 100 mg Capsule 200 mg PO BEDTIME 30 Days Qty: 60 0RF sertraline 25 mg Tablet 75 mg PO DAILY 30 Days Qty: 90 0RF Continued hydroxyzine pamoate 50 mg capsule 50 mg PO BID PRN (Reason: Anxiety) 30 Days Qty: 60 0RF mirtazapine 30 mg tablet 30 mg PO BEDTIME 30 Days Qty: 30 0RF olanzapine 20 mg tablet 20 mg PO BEDTIME 30 Days Qty: 30 0RF clonazepam 1 mg tablet 1 mg PO BID 14 Days Qty: 28 1RF Changed trazodone 50 mg tablet 100 mg PO BEDTIME PRN (Reason: insomnia) 30 Days Qty: 60 0RF Discontinued bupropion HCl 150 mg tablet sustained-release 12 hr 150 mg PO DAILY sertraline 100 mg tablet 100 mg PO DAILY Discharge Orders: Discharge Order (Routine); Ordered 10/27/22 Ordered By: Deng Echeverria Diet: Regular diet Activity on Discharge: As tolerated Stand Alone Forms: Patient Portal Discharge page, Community Support Care Plan Goals: Maintain mood and safe behaviors Take medications as prescribed Continue to pursue sobriety Practice coping skills Continue with outpatient providers and reach out to them as needed Health Concerns: Mood stability and behaviors Sobriety left foot toe x5 amputations Plan of Treatment: Follow up with your PCP, surgeon, psychiatric provider and other outpatient providers regarding above concerns Take medications as prescribed Assessment: Risk assessment at time of discharge:? Patient was interviewed prior to discharge and found to be fully oriented and without any SI or HI. Patient has insight and demonstrates good judgment in terms of wanting to pursue treatment. Patient is not in imminent risk of harm to self or others and has a safety plan that includes presenting to the closest ER or calling 911 if feeling unsafe.? Patient has been observed closely by nursing and unit staff throughout admission; patient has not engaged in any behaviors that suggest dangerousness to self or others and has demonstrated appropriate behaviors and impulse control Discharge Date/Time: 10/27/22 10:09
== END 2022-10-27 10:09 | disposition home or self-care (01) | DRG 751 ==
LOC: HO.ED 18:30 → HO.PM5 10-19 16:08
PROVIDERS: Clinical Nurse Specialist Psychiatric/Mental Health, Adult; Physician Assistant; Student in an Organized Health Care Education/Training Program; Admitting Provider Psychiatry & Neurology Psychiatry; Emergency Provider Emergency Medicine; PCP Internal Medicine; Visit Provider Registered Nurse
DX: F33.9 Major depressive disorder, recurrent, unspecified (principal); R45.851 Suicidal ideations; G89.18 Other acute postprocedural pain; F11.20 Opioid dependence, uncomplicated; F43.12 Post-traumatic stress disorder, chronic; F41.9 Anxiety disorder, unspecified; Z59.02 Unsheltered homelessness; Z20.822 Contact with and (suspected) exposure to COVID-19; Z87.891 Personal history of nicotine dependence; Z79.899 Other long term (current) drug therapy
CPT/HCPCS: 36415; 80048; 80061; 80076; 80307; 82607; 82746; 83036; 83605; 83735; 83880; 84439; 84443; 84484; 85025; 85027; 85610; 85652; 85730; 86140; 86141; 87040; 87635; 93005; 99285; S9485

== ENCOUNTER → 2022-11-01 14:00 | Outpatient (BNVA) | payer OTHER, SELFPAY | PROVIDERS: Visit Provider Surgery | DX: Z89.411 Acquired absence of right great toe (principal) | CPT/HCPCS: 99212 ==

== ENCOUNTER 2022-11-02 17:50 | Inpatient (IN) | payer OTHER, SELFPAY ==
[2022-11-02 17:57] VITALS: BP 146/84; PULSE 108; RESP 18; TEMP 37.4; O2SAT 98; BMI 28.1
[2022-11-02 18:23] LABS: COVID-19 Test Negative (Negative); IDNOW Serial# 08D9AD1C
[2022-11-02 18:42] LABS: Appearance Urine Clear; Color Urine Yellow; Glucose Urine UA Negative (Negative); Leukocyte Esterase Urine Negative (Negative); Nitrite Urine Negative (Negative); PH 5.5 (5.0-9.0); Urine Blood Negative (Negative); Urine Ketones Trace mg/dL (Negative); Urine Protein Trace mg/dL (Neg-Trace)
[2022-11-02 18:53] LABS: Amphetamine Screen Urine Not Detected (Not Detect); Barbiturates, Urine Not Detected (Not Detect); Benzodiazepines Screen Urine Not Detected (Not Detect); Cannabinoid Screen Urine Not Detected (Not Detect); Cocaine Screen Urine POSITIVE (Not Detect); Fentanyl, urine POSITIVE (Not Detect); Opiate Screen Urine Not Detected (Not Detect); Phencyclidine Screen Urine Not Detected (Not Detect)
--- NOTE | 2022-11-02 19:40 | ED.GENADULT ---
HPI - General Adult General Chief complaint: Psychiatric Symptoms Stated complaint: SI W/no plan Time Seen by Provider: 11/02/22 17:55 Source: patient Mode of arrival: ambulatory Limitations: no limitations History of Present Illness HPI narrative: Patient is a 52 year old male with history of opioid abuse, depression, SI, cellulitis, chronic ulcer of left foot presenting with SI with no plan. Patient states he has a history of depression and presented to the emergency department due to increasing suicidal ideations. He states that he uses cocaine and his last use was yesterday. Denies HI. Patient denies visual, auditory and tactile hallucinations. Denies chest pain, SOB, nausea, vomitting, fevers, chills, abdominal pain, headache, vision changes, dizziness.. Related Data Home Medications Medication Instructions Recorded Confirmed bupropion HCl 300 mg 24 hr tablet, 300 mg PO DAILY 11/02/22 11/02/22 extended release clonazepam 1 mg tablet 1 mg PO BID PRN Anxiety 11/02/22 11/02/22 gabapentin 100 mg capsule 200 mg PO BEDTIME 11/02/22 11/02/22 hydroxyzine pamoate 50 mg capsule 50 mg PO BID PRN Anxiety 11/02/22 11/02/22 mirtazapine 30 mg tablet 30 mg PO BEDTIME 11/02/22 11/02/22 olanzapine 20 mg tablet 20 mg PO BEDTIME 11/02/22 11/02/22 sertraline 25 mg tablet 75 mg PO DAILY 11/02/22 11/02/22 trazodone 50 mg tablet 100 mg PO BEDTIME PRN Insomnia 11/02/22 11/02/22 Allergies Allergy/AdvReac Type Severity Reaction Status Date / Time No Known Allergies Allergy Verified 11/02/22 18:23 [No Known Allergies*] Review of Systems Review of Systems: Constitutional : No Weight loss, No Fever, No Chills, No Fatigue, No Malaise Cardiovascular : No Chest Pain, No SOB, No Dyspnea on Exertion, No Orthopnea, No Edema, No Palpitations Respiratory : No Cough, No Sputum, No Wheezing Gastrointestinal : No Nausea, No Vomiting, No Diarrhea, No Constipation, No abdominal Pain, No Hematochezia, No Melena Genitourinary : No Dysuria, No Urinary Frequency, No Hematuria, Musculoskeletal : No joint pain, No Myalgias, No Joint Swelling Skin : No Skin Lesions, No rash Neuro : No Weakness, No Numbness, No Dizziness, No Headache Psych : No Anxiety/Panic, + Depression Heme/Lymph: No Bruising, No Bleeding,No Lymphadenopathy Endocrine : No Polyuria, No Polydipsia All other systems reviewed and are negative PMFSH Past Medical History Attestation statement: The following information was validated with the patient. Source: old records reviewed and nursing notes reviewed Medical History Anxiety Chronic post-traumatic stress disorder (PTSD) Depression Frostbite of feet, bilateral Mood disorder Opioid dependence on agonist therapy Rhabdomyolysis Suicidal ideation Surgical History History of transmetatarsal amputation of left foot (09/20/22) Social History Social History Household Members: None Housing: Homeless Do you presently have visiting nurse or other home services: No Alcohol intake: never Patient Tobacco Use Status: Former Tobacco user Quit Date: 11/07/20 Tobacco use type: Cigarette Cigarette Packs Per Day: 0.5 Cigarettes Per Day: 5 Years Smoked: 20 Smoked in Last 30 Days: No e-Cigarette/Vaping Use: Never Used Second Hand Smoke Exposure: No Use of substances other than those prescribed or required for medical reasons: Unknown Substance Use Type: Crack/Cocaine Advance Directives: Yes Advance Directives on File: Yes Advance Directives Date on File: 09/27/22 service: No Current occupational status: unemployed Sexual orientation: Straight/Heterosexual Physical Exam ED Vital Signs: Vital Signs - 24 hr 11/02/22 17:57 Temperature 99.3 F Pulse Rate 108 H Respiratory Rate 18 Pulse Oximetry 98 Oxygen Delivery Method Room Air BMI result Body Mass Index 28.1 Vital signs stable Appearance: Alert.? Oriented X3.? Appears depressed. In no acute distress Head: Normocephalic, atraumatic, no step-offs or deformities Eyes: Pupils equal, round and reactive to light.? Neck: Normal inspection.? Neck supple.? CVS: Normal heart rate and rhythm.? Pulses normal.? Respiratory: No respiratory distress.? Breath sounds normal.? Abdomen: Soft and nontender.? Skin: Skin warm and dry.? Normal skin color.? Normal skin turgor.? Extremities: No lower extremity edema.? No calf ttp. 5/5 strength to bilateral upper and lower extremities Neuro: Oriented X 3.? No motor deficit.? No sensory deficit. CN 2-12 intact Course Reevaluation(s) Reevaluation #1: CBC appears to be around patient's baseline. Chemistry pending. UA without infection. Urine tox positive for fentanyl, cocaine. Ethanol pending. Time: 00:13 Reevaluation #2: At this time patient to be placed in observation to allow more time to be evaluated by the behavioral health team. At time observation was started patient common cooperative no acute distress will continue to monitor. Time: 00:13 Medical Decision Making Medical Decision Making [facility] Narrative: 1948 Patient is a 52 year old male self-presenting to the emergency department due to increasing depressive and SI symptoms today. Physical exam benign. Differential diagnosis includes depression, anxiety. Will rule out electrolyte abnormalities and UTI. Plan labs, UA, consult with care team. Differential Diagnosis Differential Diagnoses: The differential diagnosis associated with the presentation includes Differential diagnosis includes depression, anxiety. Will rule out electrolyte abnormalities and UTI. Admission/Observation Consideration of admission/observation: Escalation of care including admission/observation considered Lab Data [facility] Lab Attestation statement: I reviewed the patient's lab results. 11/02/22 23:52 11/02/22 23:52 Labs: Lab Results 11/02/22 11/02/22 11/02/22 Range/Units 18:01 18:19 18:19 WBC (4.8-10.8) X10*3/uL RBC (4.60-5.80) X10*6/uL Hgb (14.0-18.0) g/dl Hct (42.0-52.0) % MCV (80.0-98.0) fL MCH (27.0-33.0) pg MCHC (31.0-36.0) g/dl RDW (11.0-16.0) % Plt Count (160-400) X10*3/uL MPV (9.4-12.4) fL Immature Gran % (Auto) (0.0-0.4) % Neut % (Auto) (45-73) % Lymph % (Auto) (20-40) % [place] % (Auto) (2-11) % Eos % (Auto) (0-4) % Baso % (Auto) (0-2) % Lymph # (Auto) (1.2-4.9) X10*3/uL [place] # (Auto) (0.1-1.2) X10*3/uL Eos # (Auto) (0.0-0.4) X10*3/uL Baso # (Auto) (0.0-0.2) X10*3/uL Abs Immat Gran (auto) (0.00-0.03) X10*3/uL Absolute Neuts (auto) (2.0-8.3) x10*3/uL Absolute Nucleated RBC (0.0-0.012) X10*3/uL Nucleated RBC % (auto) (0.0-0.2) /100WBC Urine Color Yellow Urine Appearance Clear Urine pH 5.5 (5.0-9.0) Ur Specific [place] 1.020 (1.005-1.025) Urine Protein Trace (Neg-Trace) mg/dL Urine Glucose (UA) Negative (Negative) mg/dL Urine Ketones Trace (Negative) mg/dL Urine Blood Negative (Negative) Urine Nitrite Negative (Negative) Ur Leukocyte Esterase Negative (Negative) Urine Opiates Screen Not Detected (Not Detect) Urine Fentanyl Screen POSITIVE H (Not Detect) Ur Barbiturates Screen Not Detected (Not Detect) Ur Phencyclidine Scrn Not Detected (Not Detect) Ur Amphetamines Screen Not Detected (Not Detect) U Benzodiazepines Scrn Not Detected (Not Detect) Urine Cocaine Screen POSITIVE H (Not Detect) U Marijuana (THC) Screen Not Detected (Not Detect) COVID-19 (KHUSHI) Negative (Negative) COVID-19 Clin Com See Note 11/02/22 Range/Units 23:52 WBC 6.6 (4.8-10.8) X10*3/uL RBC 3.53 L (4.60-5.80) X10*6/uL Hgb 9.7 L (14.0-18.0) g/dl Hct 30.4 L (42.0-52.0) % MCV 86.1 (80.0-98.0) fL MCH 27.5 (27.0-33.0) pg MCHC 31.9 (31.0-36.0) g/dl RDW 15.4 (11.0-16.0) % Plt Count 479 H (160-400) X10*3/uL MPV 9.1 L (9.4-12.4) fL Immature Gran % (Auto) 0.3 (0.0-0.4) % Neut % (Auto) 47.0 (45-73) % Lymph % (Auto) 33.6 (20-40) % [place] % (Auto) 11.7 H (2-11) % Eos % (Auto) 6.3 H (0-4) % Baso % (Auto) 1.1 (0-2) % Lymph # (Auto) 2.2 (1.2-4.9) X10*3/uL [place] # (Auto) 0.8 (0.1-1.2) X10*3/uL Eos # (Auto) 0.4 (0.0-0.4) X10*3/uL Baso # (Auto) 0.1 (0.0-0.2) X10*3/uL Abs Immat Gran (auto) 0.02 (0.00-0.03) X10*3/uL Absolute Neuts (auto) 3.1 (2.0-8.3) x10*3/uL Absolute Nucleated RBC 0.000 (0.0-0.012) X10*3/uL Nucleated RBC % (auto) 0.0 (0.0-0.2) /100WBC Urine Color Urine Appearance Urine pH (5.0-9.0) Ur Specific [place] (1.005-1.025) Urine Protein (Neg-Trace) mg/dL Urine Glucose (UA) (Negative) mg/dL Urine Ketones (Negative) mg/dL Urine Blood (Negative) Urine Nitrite (Negative) Ur Leukocyte Esterase (Negative) Urine Opiates Screen (Not Detect) Urine Fentanyl Screen (Not Detect) Ur Barbiturates Screen (Not Detect) Ur Phencyclidine Scrn (Not Detect) Ur Amphetamines Screen (Not Detect) U Benzodiazepines Scrn (Not Detect) Urine Cocaine Screen (Not Detect) U Marijuana (THC) Screen (Not Detect) COVID-19 (KHUSHI) (Negative) COVID-19 Clin Com External Record Review External record reviewed: Inpatient record, Office record, Outpatient record, Prior outpatient radiology, Primary care record and Outside ED record Core Measures AMI core measures followed: Yes Measure exclusions: not indicated Critical Care Time Critical Care Time Critical Care Time: No Discharge Plan Discharge Clinical Impression: Depression, Suicidal ideation Patient Disposition: Still a Patient Prescriptions: No Action trazodone 50 mg tablet 100 mg PO BEDTIME PRN (Reason: Insomnia) clonazepam 1 mg tablet 1 mg PO BID PRN (Reason: Anxiety) hydroxyzine pamoate 50 mg capsule 50 mg PO BID PRN (Reason: Anxiety) mirtazapine 30 mg tablet 30 mg PO BEDTIME sertraline 25 mg tablet 75 mg PO DAILY gabapentin 100 mg capsule 200 mg PO BEDTIME olanzapine 20 mg tablet 20 mg PO BEDTIME bupropion HCl 300 mg tablet extended release 24 hr 300 mg PO DAILY Interventions: [place]-Suicide Risk Severity Scale Last Done: 11/02/22 18:15
[2022-11-02 23:56] LABS: MANUAL DIFF FLAG NO
[2022-11-02 23:57] LABS: Basophils Absolute Auto 0.1 X10*3/uL (0.0-0.2); Basophils Percent Auto 1.1 % (0-2); Eosinophils Absolute Auto 0.4 X10*3/uL (0.0-0.4); Eosinophils Percent Auto 6.3 % (0-4); Hematocrit 30.4 % (42.0-52.0); Hemoglobin 9.7 g/dl (14.0-18.0); Imm Gran Abs Auto 0.02 X10*3/uL (0.00-0.03); Imm Gran Pct Auto 0.3 % (0.0-0.4); Lymphocytes Absolute Auto 2.2 X10*3/uL (1.2-4.9); Lymphocytes Percent Auto 33.6 % (20-40); Mean Corpuscular HGB Conc 31.9 g/dl (31.0-36.0); Mean Corpuscular Hemoglobin 27.5 pg (27.0-33.0); Mean Corpuscular Volume 86.1 fL (80.0-98.0); Mean Platelet Volume 9.1 fL (9.4-12.4); Monocytes Absolute Auto 0.8 X10*3/uL (0.1-1.2); Monocytes Percent Auto 11.7 % (2-11); Neutrophils Absolute Auto 3.1 x10*3/uL (2.0-8.3); Platelet Count 479 X10*3/uL (160-400); Red Blood Count 3.53 X10*6/uL (4.60-5.80); Red Cell Distribution Width 15.4 % (11.0-16.0); White Blood Count 6.6 X10*3/uL (4.8-10.8)
[2022-11-03 00:31] LABS: Alanine Aminotransferase 12 U/L (0-40); Albumin Level 3.6 g/dL (3.5-5.0); Alkaline Phosphatase 120 U/L (39-117); Anion Gap 15 (12-20); Aspartate Amino Transferase 13 U/L (5-37); Bilirubin Total 0.4 mg/dL (0.0-1.0); Blood Urea Nitrogen 13 mg/dL (9-16); Carbon Dioxide 23 mmol/L (22-29); Chloride 108 mmol/L (96-108); Creatinine Clr Calc Pharmacy 65.2; Estimated Glomerular Filt Rate 52; Ethanol < 10 mg/dL; Glucose Random 106 mg/dL (60-115); Magnesium 2.1 mg/dL (1.6-2.6); Potassium 3.5 mmol/L (3.3-5.1); Sodium 142 mmol/L (135-145); Total Protein 6.4 g/dL (6.5-8.0)
[2022-11-03 06:22] VITALS: BP 119/79; PULSE 95; RESP 19; TEMP 36.8; O2SAT 99
--- NOTE | 2022-11-03 06:22 | PC.NURSE ---
Patient slept through the night, no distress observed/reported, med rec completed/pending provider's approval, behavior non concerning, elimination intact, appetite good, engaged well with care team, disposition is section 12 inpatient bed search, VSS, will continue to monitor.
--- NOTE | 2022-11-03 07:05 | ECG_ITS ---
Test Reason : med clearance Blood Pressure : / mmHG Vent. Rate : 073 BPM Atrial Rate : 073 BPM P-R Int : 146 ms QRS Dur : 084 ms QT Int : 402 ms P-R-T Axes : 006 073 044 degrees QTc Int : 442 ms Normal sinus rhythm Normal ECG When compared with ECG of 18-OCT-2022 16:44, Vent. rate has decreased BY 36 BPM Referred By: Generic ED Physician Electronically Signed By:ARIE LEVY
[2022-11-03] MEDS: buPROPion HCl XL 300 MG TAB.ER.24H PO (09:18)
[2022-11-03] MEDS: clonazePAM 1 MG TABLET PO ×2 (09:18→19:16)
[2022-11-03] MEDS: Sertraline HCL 25 MG TABLET 75 MG PO (09:18)
[2022-11-03 16:58] LABS: Anion Gap 13 (12-20); Blood Urea Nitrogen 12 mg/dL (9-16); Calcium 9.6 mg/dL (8.4-10.2); Carbon Dioxide 25 mmol/L (22-29); Chloride 109 mmol/L (96-108); Creatinine Clr Calc Pharmacy 86.2; Estimated Glomerular Filt Rate > 60; Glucose Random 108 mg/dL (60-115); Potassium 3.8 mmol/L (3.3-5.1); Sodium 143 mmol/L (135-145)
[2022-11-03 18:15] VITALS: BP 133/77; PULSE 97; TEMP 37.3; O2SAT 98
[2022-11-03] MEDS: OLANZapine 10 MG TABLET 20 MG PO (19:15)
[2022-11-03] MEDS: Mirtazapine 30 MG TABLET PO (19:16)
[2022-11-03] MEDS: Gabapentin 100 MG CAPSULE 200 MG PO (19:16)
--- NOTE | 2022-11-03 21:42 | PC.ADMIT ---
pt is a 52 year old male who presented to [facility] ED with SI and poly substance abuse. pt has a PMH of inpatient hospitalizations, major depressive disorder, PTSD, opioid dependence, cocaine abuse, poly substance abuse, and a right foot(toes) amputation. during admission, pt answered all questions and signed all legals. pt complains of foot pain in the heel and the top the foot. pt reports that gabapentin helps him, but he would like more pain medications. start treatment plan and promote safety.
--- NOTE | 2022-11-03 21:53 | PC.NURSE ---
pt refused smoking cessation.
[2022-11-04 08:10] VITALS: BP 112/72; PULSE 111; RESP 16; TEMP 36.8; O2SAT 96
[2022-11-04] MEDS: Sertraline HCL 25 MG TABLET 75 MG PO (08:15)
[2022-11-04] MEDS: buPROPion HCl XL 300 MG TAB.ER.24H PO (08:15)
[2022-11-04] MEDS: clonazePAM 1 MG TABLET PO ×2 (10:26→17:03)
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
[2022-11-04] MEDS: Acetaminophen 325 MG TABLET 650 MG PO (17:02)
[2022-11-04 19:30] VITALS: BP 112/61; PULSE 124; TEMP 36.7
[2022-11-04] MEDS: Gabapentin 100 MG CAPSULE 200 MG PO (21:02)
[2022-11-04] MEDS: Mirtazapine 30 MG TABLET PO (21:02)
[2022-11-04] MEDS: OLANZapine 10 MG TABLET 20 MG PO (21:03)
[2022-11-05 08:01] VITALS: BP 115/71; PULSE 98; RESP 16; TEMP 36.8; O2SAT 97
[2022-11-05] MEDS: buPROPion HCl XL 300 MG TAB.ER.24H PO (08:17)
[2022-11-05] MEDS: Sertraline HCL 25 MG TABLET 75 MG PO (08:17)
[2022-11-05] MEDS: clonazePAM 1 MG TABLET PO ×2 (11:27→18:39)
[2022-11-05] MEDS: Acetaminophen 325 MG TABLET 650 MG PO (12:17)
[2022-11-05] MEDS: hydrOXYzine HCL 50 MG TABLET PO (12:17)
[2022-11-05 15:49] VITALS: BP 114/55; PULSE 92
[2022-11-05] MEDS: hydrOXYzine HCL 25 MG TABLET PO (16:34)
--- NOTE | 2022-11-05 18:21 | P.PNPSI_ITS ---
Subjective Subjective Date of Service: 11/05/22 Reason For Visit: psychiatric emergency Interim History: Patient seen and discussed. He reports feeling depressed. He denies side effects after restarting his medications. Mostly isolative. Says he showered yesterday. Denies SI. Medication Compliance: Yes Review of Systems Medical Review of Systems: unchanged Review of Systems Review of Systems Constitutional : No Weight loss, No Fever, No Chills, No Fatigue, No Malaise Cardiovascular : No Chest Pain, No SOB, No Dyspnea on Exertion, No Orthopnea, No Edema, No Palpitations Respiratory : No Cough, No Sputum, No Wheezing Gastrointestinal : No Nausea, No Vomiting, No Diarrhea, No Constipation, No abdominal Pain, No Hematochezia, No Melena Genitourinary : No Dysuria, No Urinary Frequency, No Hematuria, Musculoskeletal : No joint pain, No Myalgias, No Joint Swelling Skin : No Skin Lesions, No rash Neuro : No Weakness, No Numbness, No Dizziness, No Headache Psych : No Anxiety/Panic, + Depression Heme/Lymph: No Bruising, No Bleeding,No Lymphadenopathy Endocrine : No Polyuria, No Polydipsia All other systems reviewed and are negative Mental Status Exam Mental Status Exam Narrative: Pt is alert and oriented; behavior is cooperative, friendly and calm; patient is not in distress; dressed in casual attire; mood is described as depressed and affect congruent; eye contact appropriate; Speech is normal rate, low volume and normal prosody and not pressured; no psychomotor agitation/retardation present; thought process is organized and goal directed; Thought content is on tx; otherwise pertinent to relevant topics and without any delusional content, paranoid ideations or grandiosity; There is no evidence of perceptual disturb ance. Patients insight and judgment appear poor. Patient denies HI at this time. Patient reports suicidal ideation, states he feels safe on the unit. Diagnostics Vital Signs (24Hr): Vital Signs - 24 hr 11/04/22 19:30 11/05/22 08:01 11/05/22 15:49 Temperature 98.1 F 98.2 F Pulse Rate 124 H 98 92 Respiratory Rate 16 Blood Pressure 112/61 115/71 114/55 L Pulse Oximetry 97 Oxygen Delivery Method Room Air BMI result Body Mass Index 28.1 Labs 11/02/22 23:52 11/03/22 16:40 Medications Medications Current Medications Acetaminophen (Acetaminophen 325 Mg Tablet) 650 mg PO Q6H PRN PRN Reason: Headache/Pain Mild Scale (1-3) Last Admin: 11/05/22 12:17 Dose: 650 mg Al Hydroxide/Mg Hydroxide (Magnesium Hydrox/Alum Hydrox 30 Ml Oral.Susp) 30 ml PO Q6H PRN PRN Reason: Heartburn/Nausea Bupropion HCl (Bupropion Hcl Xl 300 Mg Tab.Er.24h) 300 mg PO DAILY [facility] Last Admin: 11/05/22 08:17 Dose: 300 mg Clonazepam (Clonazepam 1 Mg Tablet) 1 mg PO BID PRN PRN Reason: Anxiety Last Admin: 11/05/22 11:27 Dose: 1 mg Gabapentin (Gabapentin 100 Mg Capsule) 200 mg PO BEDTIME [facility] Last Admin: 11/04/22 21:02 Dose: 200 mg Hydroxyzine HCl (Hydroxyzine Hcl 50 Mg Tablet) 50 mg PO BID PRN PRN Reason: Anxiety Last Admin: 11/05/22 12:17 Dose: 50 mg Hydroxyzine HCl (Hydroxyzine Hcl 25 Mg Tablet) 25 mg PO Q6H PRN PRN Reason: Anxiety Last Admin: 11/05/22 16:34 Dose: 25 mg Magnesium Hydroxide (Milk Of Magnesia 30 Ml Oral.Susp) 30 ml PO DAILY PRN PRN Reason: Constipation Mirtazapine (Mirtazapine 30 Mg Tablet) 30 mg PO BEDTIME [facility] Last Admin: 11/04/22 21:02 Dose: 30 mg Nicotine Polacrilex (Nicotine Polacrilex 2 Mg Gum) 4 mg BUCCAL Q2H PRN PRN Reason: Nicotine Cravings Olanzapine (Olanzapine 10 Mg Tablet) 20 mg PO BEDTIME [facility] Last Admin: 11/04/22 21:03 Dose: 20 mg Sertraline HCl (Sertraline Hcl 25 Mg Tablet) 75 mg PO DAILY [facility] Last Admin: 11/05/22 08:17 Dose: 75 mg Trazodone HCl (Trazodone Hcl 100 Mg Tablet) 100 mg PO BEDTIME PRN PRN Reason: Insomnia Trazodone HCl (Trazodone Hcl 50 Mg Tablet) 50 mg PO BEDTIME MRX1 PRN PRN Reason: Insomnia Allergies Allergies Allergy/AdvReac Type Severity Reaction Status Date / Time No Known Allergies Allergy Verified 11/02/22 18:23 [No Known Allergies*] Assessment & Plan Assessment & Plan (1) Chronic post-traumatic stress disorder (PTSD): Status: Acute Code(s): F43.12 - Post-traumatic stress disorder, chronic (2) MDD (major depressive disorder), recurrent episode, severe: Status: Resolved Code(s): F33.2 - Major depressive disorder, recurrent severe without psychotic features Plan Admit to M3 Encourage group and milieu therapy Restart discharge medications Disposition planning. 11/05: Continue current plan of care. Encourage engagement in milieu and groups. Reason for continued inpatient stay Substantial Risk for: harm to self, inability to function and rapid decompensation Time Spent With Patient Time: Total time managing care of this patient today ____ minutes.
[2022-11-05] MEDS: Gabapentin 100 MG CAPSULE 200 MG PO (18:38)
[2022-11-05] MEDS: OLANZapine 10 MG TABLET 20 MG PO (18:38)
[2022-11-05] MEDS: Mirtazapine 30 MG TABLET PO (18:39)
[2022-11-05] MEDS: traZODone HCL 100 MG TABLET PO (18:39)
[2022-11-06 07:55] VITALS: BP 106/62; PULSE 84; RESP 16; TEMP 37.4; O2SAT 97
[2022-11-06] MEDS: Sertraline HCL 25 MG TABLET 75 MG PO (08:17)
[2022-11-06] MEDS: buPROPion HCl XL 300 MG TAB.ER.24H PO (08:17)
[2022-11-06] MEDS: hydrOXYzine HCL 50 MG TABLET PO (08:21)
--- NOTE | 2022-11-06 09:54 | HO.PSYCHPN ---
Subjective Subjective Date of Service: 11/06/22 Reason For Visit: psychiatric emergency Interim History: Patient seen and discussed. He reports feeling depressed. He denies side effects after restarting his medications. Minimally engaged in the unit. Denies SI. Review of Systems Review of Systems Constitutional : No Weight loss, No Fever, No Chills, No Fatigue, No Malaise Cardiovascular : No Chest Pain, No SOB, No Dyspnea on Exertion, No Orthopnea, No Edema, No Palpitations Respiratory : No Cough, No Sputum, No Wheezing Gastrointestinal : No Nausea, No Vomiting, No Diarrhea, No Constipation, No abdominal Pain, No Hematochezia, No Melena Genitourinary : No Dysuria, No Urinary Frequency, No Hematuria, Musculoskeletal : No joint pain, No Myalgias, No Joint Swelling Skin : No Skin Lesions, No rash Neuro : No Weakness, No Numbness, No Dizziness, No Headache Psych : No Anxiety/Panic, + Depression Heme/Lymph: No Bruising, No Bleeding,No Lymphadenopathy Endocrine : No Polyuria, No Polydipsia All other systems reviewed and are negative Mental Status Exam Mental Status Exam Narrative: Pt is alert and oriented; behavior is cooperative, friendly and calm; patient is not in distress; dressed in casual attire; mood is described as depressed and affect congruent; eye contact appropriate; Speech is normal rate, low volume and normal prosody and not pressured; no psychomotor agitation/retardation present; thought process is organized and goal directed; Thought content is on tx; otherwise pertinent to relevant topics and without any delusional content, paranoid ideations or grandiosity; There is no evidence of perceptual disturbance. Patients insight and judgment appear poor. Patient denies HI at this time. Patient reports suicidal ideation, states he feels safe on the unit. Diagnostics Vital Signs (24Hr): Vital Signs - 24 hr 11/05/22 15:49 Pulse Rate 92 Blood Pressure 114/55 L BMI result Body Mass Index 28.1 Labs 11/02/22 23:52 11/03/22 16:40 Medications Medications Current Medications Acetaminophen (Acetaminophen 325 Mg Tablet) 650 mg PO Q6H PRN PRN Reason: Headache/Pain Mild Scale (1-3) Last Admin: 11/05/22 12:17 Dose: 650 mg Al Hydroxide/Mg Hydroxide (Magnesium Hydrox/Alum Hydrox 30 Ml Oral.Susp) 30 ml PO Q6H PRN PRN Reason: Heartburn/Nausea Bupropion HCl (Bupropion Hcl Xl 300 Mg Tab.Er.24h) 300 mg PO DAILY [facility] Last Admin: 11/06/22 08:17 Dose: 300 mg Clonazepam (Clonazepam 1 Mg Tablet) 1 mg PO BID PRN PRN Reason: Anxiety Last Admin: 11/05/22 18:39 Dose: 1 mg Gabapentin (Gabapentin 100 Mg Capsule) 200 mg PO BEDTIME [facility] Last Admin: 11/05/22 18:38 Dose: 200 mg Hydroxyzine HCl (Hydroxyzine Hcl 50 Mg Tablet) 50 mg PO BID PRN PRN Reason: Anxiety Last Admin: 11/06/22 08:21 Dose: 50 mg Hydroxyzine HCl (Hydroxyzine Hcl 25 Mg Tablet) 25 mg PO Q6H PRN PRN Reason: Anxiety Last Admin: 11/05/22 16:34 Dose: 25 mg Magnesium Hydroxide (Milk Of Magnesia 30 Ml Oral.Susp) 30 ml PO DAILY PRN PRN Reason: Constipation Mirtazapine (Mirtazapine 30 Mg Tablet) 30 mg PO BEDTIME [facility] Last Admin: 11/05/22 18:39 Dose: 30 mg Nicotine Polacrilex (Nicotine Polacrilex 2 Mg Gum) 4 mg BUCCAL Q2H PRN PRN Reason: Nicotine Cravings Olanzapine (Olanzapine 10 Mg Tablet) 20 mg PO BEDTIME [facility] Last Admin: 11/05/22 18:38 Dose: 20 mg Sertraline HCl (Sertraline Hcl 25 Mg Tablet) 75 mg PO DAILY [facility] Last Admin: 11/06/22 08:17 Dose: 75 mg Trazodone HCl (Trazodone Hcl 100 Mg Tablet) 100 mg PO BEDTIME PRN PRN Reason: Insomnia Last Admin: 11/05/22 18:39 Dose: 100 mg Trazodone HCl (Trazodone Hcl 50 Mg Tablet) 50 mg PO BEDTIME MRX1 PRN PRN Reason: Insomnia Allergies Allergies Allergy/AdvReac Type Severity Reaction Status Date / Time No Known Allergies Allergy Verified 11/02/22 18:23 [No Known Allergies*] Assessment & Plan Assessment & Plan (1) Chronic post-traumatic stress disorder (PTSD): Status: Acute Code(s): F43.12 - Post-traumatic stress disorder, chronic (2) MDD (major depressive disorder), recurrent episode, severe: Status: Resolved Code(s): F33.2 - Major depressive disorder, recurrent severe without psychotic features Plan Admit to [facility] Encourage group and milieu therapy Restart discharge medications Disposition planning. 11/05: Continue current plan of care. Encourage engagement in milieu and groups. 11/06: Continue current plan of care. Encourage engagement in milieu and groups. Reason for continued inpatient stay Substantial Risk for: inability to function and med/psych decompensation Time Spent With Patient Time: Total time managing care of this patient today ____ minutes.
[2022-11-06] MEDS: clonazePAM 1 MG TABLET PO ×2 (11:37→18:42)
[2022-11-06 16:20] VITALS: RESP 16
[2022-11-06 17:15] VITALS: BP 110/73; PULSE 122; TEMP 36.8; O2SAT 96
[2022-11-06] MEDS: Acetaminophen 325 MG TABLET 650 MG PO (18:42)
[2022-11-06] MEDS: OLANZapine 10 MG TABLET 20 MG PO (19:44)
[2022-11-06] MEDS: Gabapentin 100 MG CAPSULE 200 MG PO (19:44)
[2022-11-06] MEDS: traZODone HCL 50 MG TABLET 150 MG PO (19:44)
[2022-11-06] MEDS: Mirtazapine 30 MG TABLET PO (19:44)
[2022-11-07 08:10] VITALS: BP 127/63; PULSE 87; RESP 18; TEMP 36.9; O2SAT 98
[2022-11-07] MEDS: buPROPion HCl XL 300 MG TAB.ER.24H PO (08:33)
[2022-11-07] MEDS: Sertraline HCL 25 MG TABLET 75 MG PO (08:33)
[2022-11-07] MEDS: clonazePAM 1 MG TABLET PO ×2 (10:47→18:55)
[2022-11-07] MEDS: hydrOXYzine HCL 50 MG TABLET PO ×2 (10:47→18:55)
--- NOTE | 2022-11-07 10:56 | P.PNPSI_ITS ---
Subjective Subjective Date of Service: 11/07/22 Reason For Visit: psychiatric emergency Subjective Notes: Conditional Voluntary Interim History: Reviewed in team. Patient reports feeling like depression is getting better but still having bad anxiety . Patient stated, I came back because I had really bad depression and I went back to the streets. I would like to go to [facility] or somewhere that can help me stop using drugs. I just don't want to go to the [facility] . Patient reports he is happy with his medication regimen and feels it is helpful. Patient denies SI/HI/VH/AH at this time. Medication Compliance: Yes Side effects from medications: No Attending Groups: Intermittent Review of Systems Constitutional: Reports as per HPI Eyes: Reports as per HPI Reports as per HPI Cardiovascular: Reports as per HPI Respiratory: Reports as per HPI Gastrointestinal: Reports as per HPI Genitourinary: Reports as per HPI Musculoskeletal: Reports as per HPI Skin/Breast: Reports as per HPI Reports as per HPI Psychiatric: Reports as per HPI Endocrine: Reports as per HPI Hematologic/Lymphatic: Reports as per HPI Allergic/Immunologic: Reports as per HPI Mental Status Exam Mental Status Exam Narrative: Pt is alert and oriented; behavior is cooperative, friendly and calm; patient is not in distress; dressed in casual attire; mood is described as anxious ; eye contact appropriate; Speech is normal rate, volume and prosody and not pressured; no psychomotor agitation/retardation present; thought process is organized and goal directed; Thought content is on tx; otherwise pertinent to relevant topics and without any delusional content, paranoid ideations or grandiosity; denies any SI/HI. There is no evidence of perceptual disturbance. Patients insight and judgment are fair. Diagnostics Vital Signs (24Hr): Vital Signs - 24 hr 11/06/22 16:20 11/06/22 17:15 11/07/22 08:10 Temperature 98.3 F 98.4 F Pulse Rate 122 H 87 Respiratory Rate 16 18 Blood Pressure 110/73 127/63 Pulse Oximetry 96 98 Oxygen Delivery Method Room Air Room Air BMI result Body Mass Index 28.1 Labs 11/02/22 23:52 11/03/22 16:40 Medications Medications Current Medications Acetaminophen (Acetaminophen 325 Mg Tablet) 650 mg PO Q6H PRN PRN Reason: Headache/Pain Mild Scale (1-3) Last Admin: 11/06/22 18:42 Dose: 650 mg Al Hydroxide/Mg Hydroxide (Magnesium Hydrox/Alum Hydrox 30 Ml Oral.Susp) 30 ml PO Q6H PRN PRN Reason: Heartburn/Nausea Bupropion HCl (Bupropion Hcl Xl 300 Mg Tab.Er.24h) 300 mg PO DAILY [facility] Last Admin: 11/07/22 08:33 Dose: 300 mg Clonazepam (Clonazepam 1 Mg Tablet) 1 mg PO BID PRN PRN Reason: Anxiety Last Admin: 11/07/22 10:47 Dose: 1 mg Gabapentin (Gabapentin 100 Mg Capsule) 200 mg PO BEDTIME [facility] Last Admin: 11/06/22 19:44 Dose: 200 mg Hydroxyzine HCl (Hydroxyzine Hcl 50 Mg Tablet) 50 mg PO BID PRN PRN Reason: Anxiety Last Admin: 11/07/22 10:47 Dose: 50 mg Magnesium Hydroxide (Milk Of Magnesia 30 Ml Oral.Susp) 30 ml PO DAILY PRN PRN Reason: Constipation Mirtazapine (Mirtazapine 30 Mg Tablet) 30 mg PO BEDTIME [facility] Last Admin: 11/06/22 19:44 Dose: 30 mg Nicotine Polacrilex (Nicotine Polacrilex 2 Mg Gum) 4 mg BUCCAL Q2H PRN PRN Reason: Nicotine Cravings Olanzapine (Olanzapine 10 Mg Tablet) 20 mg PO BEDTIME [facility] Last Admin: 11/06/22 19:44 Dose: 20 mg Sertraline HCl (Sertraline Hcl 25 Mg Tablet) 75 mg PO DAILY [facility] Last Admin: 11/07/22 08:33 Dose: 75 mg Trazodone HCl (Trazodone Hcl 50 Mg Tablet) 150 mg PO BEDTIME PRN PRN Reason: Insomnia Last Admin: 11/06/22 19:44 Dose: 150 mg Allergies Allergies Allergy/AdvReac Type Severity Reaction Status Date / Time No Known Allergies Allergy Verified 11/02/22 18:23 [No Known Allergies*] Assessment & Plan Assessment & Plan (1) MDD (major depressive disorder), recurrent episode, severe: Status: Resolved Code(s): F33.2 - Major depressive disorder, recurrent severe without psychotic features (2) Chronic post-traumatic stress disorder (PTSD): Status: Acute Code(s): F43.12 - Post-traumatic stress disorder, chronic Plan 52 year old man with a history of MDD and polysubstance dependence. He was recently discharged from [facility] after a week long hospitalization. He presented to the ED with increased SI with plan to OD on medications. Patient says that after his discharge, he was unable to fill his medications. He reports homelessness as being a factor in getting his medications. He tested positive for cocaine and fentanyl. Patient reported increased depression, helplessness, hopelessness, worthlessness and SI. Plan: CV 15 min safety checks Restart discharge medications Disposition planning. Bupropion Hcl Xl 300 mg PO DAILY Clonazepam 1mg PO BID PRN anxiety Gabapentin 200 mg PO BEDTIME Hydroxyzine 50 mg PO BID PRN anxiety Mirtazapine 30 mg PO BEDTIME Olanzapine 20 mg PO BEDTIME Sertraline 75 mg PO DAILY Trazodone 150 mg PO BEDTIME PRN insomnia 11/05: Continue current plan of care. Encourage engagement in milieu and groups. 11/06: Continue current plan of care. Encourage engagement in milieu and groups. 11/07: Patient reports he would like to stay on current medication regimen. Pt states he feels his mood is improving. [facility] a program to help with his substance abuse. early childhood worker notified. Patient educated on: substance abuse and therapeutic strategies Informed Consent: understands Reason for continued inpatient stay Substantial Risk for: med/psych decompensation Time Spent With Patient Time: Total time managing care of this patient today ____ minutes.
[2022-11-07 18:00] VITALS: BP 118/74; PULSE 120; TEMP 36.8; O2SAT 97
[2022-11-07] MEDS: Gabapentin 100 MG CAPSULE 200 MG PO (20:01)
[2022-11-07] MEDS: OLANZapine 10 MG TABLET 20 MG PO (20:01)
[2022-11-07] MEDS: traZODone HCL 50 MG TABLET 150 MG PO (20:01)
[2022-11-07] MEDS: Mirtazapine 30 MG TABLET PO (20:02)
[2022-11-08] MEDS: Sertraline HCL 25 MG TABLET 75 MG PO (08:38)
[2022-11-08] MEDS: buPROPion HCl XL 300 MG TAB.ER.24H PO (08:38)
[2022-11-08 08:45] VITALS: BP 122/90; PULSE 139; RESP 20; TEMP 36.1; O2SAT 98
--- NOTE | 2022-11-08 10:04 | P.PNPSI_ITS ---
Subjective Subjective Date of Service: 11/08/22 Reason For Visit: psychiatric emergency Subjective Notes: Conditional Voluntary Interim History: Reviewed in team. Patient reports his mood is better , however he would like his Zoloft increased to see if it helps with his anxiety. Patient reports sleeping well at night. He reports he is hoping to get into [facility] and plans to follow up with his outpatient providers. Patient stated he no longer wants a program to help with substance abuse; patient stated, I'm going to stay away from the people I buy drugs from and go to meetings . Patient denies SI/HI/VH/AH at this time. Medication Compliance: Yes Side effects from medications: No Attending Groups: Intermittent Review of Systems Constitutional: Reports as per HPI Eyes: Reports as per HPI Reports as per HPI Cardiovascular: Reports as per HPI Respiratory: Reports as per HPI Gastrointestinal: Reports as per HPI Genitourinary: Reports as per HPI Musculoskeletal: Reports as per HPI Skin/Breast: Reports as per HPI Reports as per HPI Psychiatric: Reports as per HPI Endocrine: Reports as per HPI Hematologic/Lymphatic: Reports as per HPI Allergic/Immunologic: Reports as per HPI Mental Status Exam Mental Status Exam Narrative: Pt is alert and oriented; behavior is cooperative, friendly and calm; patient is not in distress; dressed in casual attire; mood is described as better ; eye contact appropriate; Speech is normal rate, volume and prosody and not pressured; no psychomotor agitation/retardation present; thought process is organized and goal directed; Thought content is on tx; otherwise pertinent to relevant topics and without any delusional content, paranoid ideations or grandiosity; denies any SI/HI. There is no evidence of perceptual disturbance. Patients insight and judgment are fair. Diagnostics Vital Signs (24Hr): Vital Signs - 24 hr 11/07/22 18:00 Temperature 98.3 F Pulse Rate 120 H Blood Pressure 118/74 Pulse Oximetry 97 Oxygen Delivery Method Room Air BMI result Body Mass Index 28.1 Labs 11/02/22 23:52 11/03/22 16:40 Medications Medications Current Medications Acetaminophen (Acetaminophen 325 Mg Tablet) 650 mg PO Q6H PRN PRN Reason: Headache/Pain Mild Scale (1-3) Last Admin: 11/06/22 18:42 Dose: 650 mg Al Hydroxide/Mg Hydroxide (Magnesium Hydrox/Alum Hydrox 30 Ml Oral.Susp) 30 ml PO Q6H PRN PRN Reason: Heartburn/Nausea Bupropion HCl (Bupropion Hcl Xl 300 Mg Tab.Er.24h) 300 mg PO DAILY [facility] Last Admin: 11/08/22 08:38 Dose: 300 mg Clonazepam (Clonazepam 1 Mg Tablet) 1 mg PO BID PRN PRN Reason: Anxiety Last Admin: 11/07/22 18:55 Dose: 1 mg Gabapentin (Gabapentin 100 Mg Capsule) 200 mg PO BEDTIME [facility] Last Admin: 11/07/22 20:01 Dose: 200 mg Hydroxyzine HCl (Hydroxyzine Hcl 50 Mg Tablet) 50 mg PO BID PRN PRN Reason: Anxiety Last Admin: 11/07/22 18:55 Dose: 50 mg Magnesium Hydroxide (Milk Of Magnesia 30 Ml Oral.Susp) 30 ml PO DAILY PRN PRN Reason: Constipation Mirtazapine (Mirtazapine 30 Mg Tablet) 30 mg PO BEDTIME [facility] Last Admin: 11/07/22 20:02 Dose: 30 mg Nicotine Polacrilex (Nicotine Polacrilex 2 Mg Gum) 4 mg BUCCAL Q2H PRN PRN Reason: Nicotine Cravings Olanzapine (Olanzapine 10 Mg Tablet) 20 mg PO BEDTIME [facility] Last Admin: 11/07/22 20:01 Dose: 20 mg Sertraline HCl (Sertraline Hcl 25 Mg Tablet) 75 mg PO DAILY [facility] Last Admin: 11/08/22 08:38 Dose: 75 mg Trazodone HCl (Trazodone Hcl 50 Mg Tablet) 150 mg PO BEDTIME PRN PRN Reason: Insomnia Last Admin: 11/07/22 20:01 Dose: 150 mg Allergies Allergies Allergy/AdvReac Type Severity Reaction Status Date / Time No Known Allergies Allergy Verified 11/02/22 18:23 [No Known Allergies*] Assessment & Plan Assessment & Plan (1) MDD (major depressive disorder), recurrent episode, severe: Status: Resolved Code(s): F33.2 - Major depressive disorder, recurrent severe without psychotic features (2) Chronic post-traumatic stress disorder (PTSD): Status: Acute Code(s): F43.12 - Post-traumatic stress disorder, chronic Plan 52 year old man with a history of MDD and polysubstance dependence. He was r ecently discharged from after a week long hospitalization. He presented to the ED with increased SI with plan to OD on medications. Patient says that after his discharge, he was unable to fill his medications. He reports homelessness as being a factor in getting his medications. He tested positive for cocaine and fentanyl. Patient reported increased depression, helplessness, hopelessness, worthlessness and SI. Plan: CV 15 min safety checks Restart discharge medications Disposition planning. Bupropion Hcl Xl 300 mg PO DAILY Clonazepam 1mg PO BID PRN anxiety Gabapentin 200 mg PO BEDTIME Hydroxyzine 50 mg PO BID PRN anxiety Mirtazapine 30 mg PO BEDTIME Olanzapine 20 mg PO BEDTIME Trazodone 150 mg PO BEDTIME PRN insomnia Sertraline increased to 100mg PO daily (per patient request to help in improving mood/anxiety) 11/05: Continue current plan of care. Encourage engagement in milieu and groups. 11/06: Continue current plan of care. Encourage engagement in milieu and groups. 11/07: Patient reports he would like to stay on current medication regimen. Pt states he feels his mood is improving. [facility] is [facility] a program to help with his substance abuse. coloring room worker notified. 11/08: Patient reports his mood improving. He wanted Zoloft increased to 100mg daily, to see if it helps with his mood/anxiety. Patient stated, he no longer wants assistance in substance abuse. Pt [facility]. Patient educated on: medication risk/benefits, substance abuse and therapeutic strategies Informed Consent: understands Reason for continued inpatient stay Substantial Risk for: med/psych decompensation Time Spent With Patient Time: Total time managing care of this patient today ____ minutes.
[2022-11-08] MEDS: clonazePAM 1 MG TABLET PO ×2 (10:59→17:11)
[2022-11-08] MEDS: hydrOXYzine HCL 50 MG TABLET PO ×2 (10:59→17:11)
[2022-11-08] MEDS: Sertraline HCL 25 MG TABLET PO (14:05)
[2022-11-08 18:00] VITALS: BP 131/60; PULSE 122; TEMP 36.1; O2SAT 97
[2022-11-08] MEDS: traZODone HCL 50 MG TABLET 150 MG PO (20:01)
[2022-11-08] MEDS: Mirtazapine 30 MG TABLET PO (20:01)
[2022-11-08] MEDS: OLANZapine 10 MG TABLET 20 MG PO (20:01)
[2022-11-08] MEDS: Gabapentin 100 MG CAPSULE 200 MG PO (20:01)
[2022-11-09 06:00] VITALS: BP 105/75; PULSE 133; RESP 16; TEMP 36.3; O2SAT 97
[2022-11-09 07:00] VITALS: BMI 29.2
[2022-11-09] MEDS: buPROPion HCl XL 300 MG TAB.ER.24H PO (08:12)
[2022-11-09] MEDS: Sertraline HCL 100 MG TABLET PO (08:13)
[2022-11-09] MEDS: hydrOXYzine HCL 50 MG TABLET PO ×2 (09:41→18:04)
[2022-11-09] MEDS: clonazePAM 1 MG TABLET PO ×2 (09:41→18:06)
--- NOTE | 2022-11-09 11:37 | P.PNPSI_ITS ---
Subjective Subjective Date of Service: 11/09/22 Reason For Visit: psychiatric emergency Subjective Notes: Conditional Voluntary Interim History: Reviewed in team. Patient reports feeling so-so today. Patient stated, my life makes me depressed. I'm 52, no car, no house. Drugs did this to me. I have 2 kids, they want nothing to do with me. I hope I don't go back to drugs. I'm going to try my best not to . Patient reports sleeping well at night. He continues to hope to get into [facility] and plans to follow up with his outpatient providers. Patient denies SI/HI/VH/AH at this time. Medication Compliance: Yes Side effects from medications: No Attending Groups: Yes Review of Systems Constitutional: Reports as per HPI Eyes: Reports as per HPI Reports as per HPI Cardiovascular: Reports as per HPI Respiratory: Reports as per HPI Gastrointestinal: Reports as per HPI Genitourinary: Reports as per HPI Musculoskeletal: Reports as per HPI Skin/Breast: Reports as per HPI Reports as per HPI Psychiatric: Reports as per HPI Endocrine: Reports as per HPI Hematologic/Lymphatic: Reports as per HPI Allergic/Immunologic: Reports as per HPI Mental Status Exam Mental Status Exam Narrative: Pt is alert and oriented; behavior is cooperative, friendly and calm; patient is not in distress; dressed in casual attire; mood is described as anxious ; eye contact appropriate; Speech is normal rate, volume and prosody and not pressured; no psychomotor agitation/retardation present; thought process is organized and goal directed; Thought content is on tx; otherwise pertinent to relevant topics and without any delusional content, paranoid ideations or grandiosity; denies any SI/HI. There is no evidence of perceptual disturbance. Patients insight and judgment are fair. Diagnostics Vital Signs (24Hr): Vital Signs - 24 hr 11/08/22 18:00 11/09/22 06:00 Temperature 97.0 F 97.4 F Pulse Rate 122 H 133 H Respiratory Rate 16 Blood Pressure 131/60 105/75 Pulse Oximetry 97 97 Oxygen Delivery Method Room Air Room Air BMI result Body Mass Index 28.1 Labs 11/02/22 23:52 11/03/22 16:40 Medications Medications Current Medications Acetaminophen (Acetaminophen 325 Mg Tablet) 650 mg PO Q6H PRN PRN Reason: Headache/Pain Mild Scale (1-3) Last Admin: 11/06/22 18:42 Dose: 650 mg Al Hydroxide/Mg Hydroxide (Magnesium Hydrox/Alum Hydrox 30 Ml Oral.Susp) 30 ml PO Q6H PRN PRN Reason: Heartburn/Nausea Bupropion HCl (Bupropion Hcl Xl 300 Mg Tab.Er.24h) 300 mg PO DAILY [facility] Last Admin: 11/09/22 08:12 Dose: 300 mg Clonazepam (Clonazepam 1 Mg Tablet) 1 mg PO BID PRN PRN Reason: Anxiety Last Admin: 11/09/22 09:41 Dose: 1 mg Gabapentin (Gabapentin 100 Mg Capsule) 200 mg PO BEDTIME [facility] Last Admin: 11/08/22 20:01 Dose: 200 mg Hydroxyzine HCl (Hydroxyzine Hcl 50 Mg Tablet) 50 mg PO BID PRN PRN Reason: Anxiety Last Admin: 11/09/22 09:41 Dose: 50 mg Magnesium Hydroxide (Milk Of Magnesia 30 Ml Oral.Susp) 30 ml PO DAILY PRN PRN Reason: Constipation Mirtazapine (Mirtazapine 30 Mg Tablet) 30 mg PO BEDTIME [facility] Last Admin: 11/08/22 20:01 Dose: 30 mg Nicotine Polacrilex (Nicotine Polacrilex 2 Mg Gum) 4 mg BUCCAL Q2H PRN PRN Reason: Nicotine Cravings Olanzapine (Olanzapine 10 Mg Tablet) 20 mg PO BEDTIME [facility] Last Admin: 11/08/22 20:01 Dose: 20 mg Sertraline HCl (Sertraline Hcl 100 Mg Tablet) 100 mg PO DAILY [facility] Last Admin: 11/09/22 08:13 Dose: 100 mg Trazodone HCl (Trazodone Hcl 50 Mg Tablet) 150 mg PO BEDTIME PRN PRN Reason: Insomnia Last Admin: 11/08/22 20:01 Dose: 150 mg Allergies Allergies Allergy/AdvReac Type Severity Reaction Status Date / Time No Known Allergies Allergy Verified 11/02/22 18:23 [No Known Allergies*] Assessment & Plan Assessment & Plan (1) MDD (major depressive disorder), recurrent episode, severe: Status: Resolved Code(s): F33.2 - Major depressive disorder, recurrent severe without psychotic features (2) Chronic post-traumatic stress disorder (PTSD): Status: Acute Code(s): F43.12 - Post-traumatic stress disorder, chronic Plan 52 year old man with a history of MDD and polysubstance dependence. He was recently discharged from after a week long hospitalization. He presented to the ED with increased SI with plan to OD on medications. Patient says that after his discharge, he was unable to fill his medications. He reports homelessness as being a factor in getting his medications. He tested positive for cocaine and fentanyl. Patient reported increased depression, helplessness, hopelessness, worthlessness and SI. Plan: CV 15 min safety checks Restart discharge medications Disposition planning. Bupropion Hcl Xl 300 mg PO DAILY Clonazepam 1mg PO BID PRN anxiety Gabapentin 200 mg PO BEDTIME Hydroxyzine 50 mg PO BID PRN anxiety Mirtazapine 30 mg PO BEDTIME Olanzapine 20 mg PO BEDTIME Trazodone 150 mg PO BEDTIME PRN insomnia Sertraline increased to 100mg PO daily (per patient request to help in improving mood/anxiety) 11/05: Continue current plan of care. Encourage engagement in milieu and groups. 11/06: Continue current plan of care. Encourage engagement in milieu and groups. 11/07: Patient reports he would like to stay on current medication regimen. Pt states he feels his mood is improving. [facility] a program to help with his substance abuse. fast foods worker notified. 11/08: Patient reports his mood improving. He wanted Zoloft increased to 100mg daily, to see if it helps with his mood/anxiety. Patient stated, he no longer wants assistance in substance abuse. Pt is waiting for a bed at [facility]. 11/09: Continue with current mediation regimen. Patient continues to report anxiety and depression. He reports he does not want to continue using substances and hopes he can stay sober. fast foods worker is waiting to hear back from [facility]. Patient educated on: medication risk/benefits, substance abuse and therapeutic strategies Informed Consent: understands Reason for continued inpatient stay Substantial Risk for: med/psych decompensation Time Spent With Patient Time: Total time managing care of this patient today ____ minutes.
[2022-11-09 18:00] VITALS: BP 124/82; PULSE 101; RESP 16; TEMP 36.4; O2SAT 97
[2022-11-09] MEDS: Gabapentin 100 MG CAPSULE 200 MG PO (19:20)
[2022-11-09] MEDS: Mirtazapine 30 MG TABLET PO (19:21)
[2022-11-09] MEDS: OLANZapine 10 MG TABLET 20 MG PO (19:21)
[2022-11-10] MEDS: buPROPion HCl XL 300 MG TAB.ER.24H PO (08:12)
[2022-11-10] MEDS: Sertraline HCL 100 MG TABLET PO (08:12)
[2022-11-10 08:14] VITALS: BP 102/70; PULSE 123; RESP 18; TEMP 36.5; O2SAT 98
[2022-11-10] MEDS: clonazePAM 1 MG TABLET PO ×2 (09:06→18:15)
[2022-11-10] MEDS: hydrOXYzine HCL 50 MG TABLET PO ×2 (09:06→18:15)
--- NOTE | 2022-11-10 13:13 | P.PNPSI_ITS ---
Subjective Subjective Date of Service: 11/10/22 Reason For Visit: psychiatric emergency Subjective Notes: Conditional Voluntary Interim History: Reviewed in team. Patient reports feeling good today. Patient shaved his maldonado this morning with staff present. He reports his anxiety and depression have decreased and believes current mediations are helpful. Patient reports sleeping well at night. molding utility worker is waiting to hear back from [facility]. Patient may be discharged on Sunday. Patient denies SI/HI/VH/AH at this time. Medication Compliance: Yes Side effects from medications: No Attending Groups: Yes Review of Systems Constitutional: Reports as per HPI Eyes: Reports as per HPI Reports as per HPI Cardiovascular: Reports as per HPI Respiratory: Reports as per HPI Gastrointestinal: Reports as per HPI Genitourinary: Reports as per HPI Musculoskeletal: Reports as per HPI Skin/Breast: Reports as per HPI Reports as per HPI Psychiatric: Reports as per HPI Endocrine: Reports as per HPI Hematologic/Lymphatic: Reports as per HPI Allergic/Immunologic: Reports as per HPI Mental Status Exam Mental Status Exam Narrative: Pt is alert and oriented; behavior is cooperative, friendly and calm; patient is not in distress; dressed in casual attire; mood is described as good ; eye contact appropriate; Speech is normal rate, volume and prosody and not pressure d; no psychomotor agitation/retardation present; thought process is organized and goal directed; Thought content is on tx; otherwise pertinent to relevant topics and without any delusional content, paranoid ideations or grandiosity; denies any SI/HI. There is no evidence of perceptual disturbance. Patients insight and judgment are fair. Diagnostics Vital Signs (24Hr): Vital Signs - 24 hr 11/09/22 18:00 11/10/22 08:14 Temperature 97.6 F 97.7 F Pulse Rate 101 H 123 H Respiratory Rate 16 18 Blood Pressure 124/82 102/70 Pulse Oximetry 97 98 Oxygen Delivery Method Room Air Room Air BMI result Body Mass Index 29.2 Labs 11/02/22 23:52 11/03/22 16:40 Medications Medications Current Medications Acetaminophen (Acetaminophen 325 Mg Tablet) 650 mg PO Q6H PRN PRN Reason: Headache/Pain Mild Scale (1-3) Last Admin: 11/06/22 18:42 Dose: 650 mg Al Hydroxide/Mg Hydroxide (Magnesium Hydrox/Alum Hydrox 30 Ml Oral.Susp) 30 ml PO Q6H PRN PRN Reason: Heartburn/Nausea Bupropion HCl (Bupropion Hcl Xl 300 Mg Tab.Er.24h) 300 mg PO DAILY [facility] Last Admin: 11/10/22 08:12 Dose: 300 mg Clonazepam (Clonazepam 1 Mg Tablet) 1 mg PO BID PRN PRN Reason: Anxiety Last Admin: 11/10/22 09:06 Dose: 1 mg Gabapentin (Gabapentin 100 Mg Capsule) 200 mg PO BEDTIME [place]ING Last Admin: 11/09/22 19:20 Dose: 200 mg Hydroxyzine HCl (Hydroxyzine Hcl 50 Mg Tablet) 50 mg PO BID PRN PRN Reason: Anxiety Last Admin: 11/10/22 09:06 Dose: 50 mg Magnesium Hydroxide (Milk Of Magnesia 30 Ml Oral.Susp) 30 ml PO DAILY PRN PRN Reason: Constipation Mirtazapine (Mirtazapine 30 Mg Tablet) 30 mg PO BEDTIME IRVING Last Admin: 11/09/22 19:21 Dose: 30 mg Nicotine Polacrilex (Nicotine Polacrilex 2 Mg Gum) 4 mg BUCCAL Q2H PRN PRN Reason: Nicotine Cravings Olanzapine (Olanzapine 10 Mg Tablet) 20 mg PO BEDTIME [facility] Last Admin: 11/09/22 19:21 Dose: 20 mg Sertraline HCl (Sertraline Hcl 100 Mg Tablet) 100 mg PO DAILY [facility] Last Admin: 11/10/22 08:12 Dose: 100 mg Trazodone HCl (Trazodone Hcl 50 Mg Tablet) 150 mg PO BEDTIME PRN PRN Reason: Insomnia Last Admin: 11/08/22 20:01 Dose: 150 mg Allergies Allergies Allergy/AdvReac Type Severity Reaction Status Date / Time No Known Allergies Allergy Verified 11/02/22 18:23 [No Known Allergies*] Assessment & Plan Assessment & Plan (1) MDD (major depressive disorder), recurrent episode, severe: Status: Resolved Code(s): F33.2 - Major depressive disorder, recurrent severe without psychotic features (2) Chronic post-traumatic stress disorder (PTSD): Status: Acute Code(s): F43.12 - Post-traumatic stress disorder, chronic Plan 52 year old man with a history of MDD and polysubstance dependence. He was recently discharged from after a week long hospitalization. He presented to the ED with increased SI with plan to OD on medications. Patient says that after his discharge, he was unable to fill his medications. He reports homelessness as being a factor in getting his medications. He tested positive for cocaine and fentanyl. Patient reported increased depression, helplessness, hopelessness, worthlessness and SI. Plan: CV 15 min safety checks Disposition planning. Bupropion Hcl Xl 300 mg PO DAILY Clonazepam 1mg PO BID PRN anxiety Gabapentin 200 mg PO BEDTIME Hydroxyzine 50 mg PO BID PRN anxiety Mirtazapine 30 mg PO BEDTIME Olanzapine 20 mg PO BEDTIME Sertraline 100mg PO DAILY Trazodone 150 mg PO BEDTIME PRN insomnia 11/05: Continue current plan of care. Encourage engagement in milieu and groups. 11/06: Continue current plan of care. Encourage engagement in milieu and groups. 11/07: Patient reports he would like to stay on current medication regimen. Pt states he feels his mood is improving. He [facility] a program to help with his substance abuse. molding utility worker notified. 11/08: Patient reports his mood improving. He wanted Zoloft increased to 100mg daily, to see if it helps with his mood/anxiety. Patient stated, he no longer wants assistance in substance abuse. Pt is waiting for a bed at [facility]. 11/09: Continue with current mediation regimen. Patient continues to report anxiety and depression. He reports he does not want to continue using substances and hopes he can stay sober. molding utility worker is waiting to hear back from [facility]. 11/10: Patient shaved maldonado this morning. He reports feeling good today. Patient stated his depression and anxiety have decreased and is looking forward to going to [facility]. Continue with current medication regimen. Patient educated on: diagnosis, medication risk/benefits, substance abuse and therapeutic strategies Informed Consent: understands Reason for continued inpatient stay Substantial Risk for: med/psych decompensation Time Spent With Patient Time: Total time managing care of this patient today ____ minutes.
[2022-11-10 18:00] VITALS: BP 116/78; PULSE 68; RESP 16; TEMP 36.4; O2SAT 98
[2022-11-10] MEDS: traZODone HCL 50 MG TABLET 150 MG PO (19:16)
[2022-11-10] MEDS: Mirtazapine 30 MG TABLET PO (19:17)
[2022-11-10] MEDS: OLANZapine 10 MG TABLET 20 MG PO (19:17)
[2022-11-10] MEDS: Gabapentin 100 MG CAPSULE 200 MG PO (19:17)
[2022-11-11] MEDS: buPROPion HCl XL 300 MG TAB.ER.24H PO (08:37)
[2022-11-11] MEDS: hydrOXYzine HCL 50 MG TABLET PO ×2 (08:37→16:38)
[2022-11-11] MEDS: Sertraline HCL 100 MG TABLET PO (08:37)
[2022-11-11] MEDS: clonazePAM 1 MG TABLET PO ×2 (08:37→16:38)
[2022-11-11 08:50] VITALS: BP 107/64; PULSE 106; RESP 18; TEMP 36.3; O2SAT 98
--- NOTE | 2022-11-11 15:41 | P.PNPSI_ITS ---
Subjective Subjective Date of Service: 11/11/22 Reason For Visit: psychiatric emergency Subjective Notes: Conditional Voluntary Medical Problems Affecting Mental Status: No Interim History: Met with patient. Patient reports feeling good today.Pt says he is looking forward to discharge. He reports his anxiety and depression have decreased and believes current medications are helpful. He denies side effects. Patient reports sleeping well. grove worker is waiting to hear back from [facility]. Patient may be discharged on Sunday. Patient denies SI/HI/VH/AH at this time. Medication Compliance: Yes Side effects from medications: No Attending Groups: Intermittent Review of Systems Acute medical concerns: No Medical Review of Systems: unchanged Review of Systems Review of Systems Constitutional : No Weight loss, No Fever, No Chills, No Fatigue, No Malaise Cardiovascular : No Chest Pain, No SOB, No Dyspnea on Exertion, No Orthopnea, No Edema, No Palpitations Respiratory : No Cough, No Sputum, No Wheezing Gastrointestinal : No Nausea, No Vomiting, No Diarrhea, No Constipation, No abdominal Pain, No Hematochezia, No Melena Genitourinary : No Dysuria, No Urinary Frequency, No Hematuria, Musculoskeletal : No joint pain, No Myalgias, No Joint Swelling Skin : No Skin Lesions, No rash Neuro : No Weakness, No Numbness, No Dizziness, No Headache Psych : No Anxiety/Panic, + Depression Heme/Lymph: No Bruising, No Bleeding,No Lymphadenopathy Endocrine : No Polyuria, No Polydipsia All other systems reviewed and are negative Constitutional: Reports as per HPI Eyes: Reports as per HPI Reports as per HPI Cardiovascular: Reports as per HPI Respiratory: Reports as per HPI Gastrointestinal: Reports as per HPI Genitourinary: Reports as per HPI Musculoskeletal: Reports as per HPI Skin/Breast: Reports as per HPI Reports as per HPI Psychiatric: Reports as per HPI Endocrine: Reports as per HPI Hematologic/Lymphatic: Reports as per HPI Allergic/Immunologic: Reports as per HPI Mental Status Exam Mental Status Exam Narrative: Pt is alert and oriented; behavior is cooperative, friendly and calm; patient is not in distress; dressed in casual attire; mood is described as good ; eye contact appropriate; Speech is normal rate, volume and prosody and not pressured; no psychomotor agitation/retardation present; thought process is organized and goal directed; Thought content is on tx; otherwise pertinent to relevant topics and without any delusional content, paranoid ideations or grandiosity; denies any SI/HI. There is no evidence of perceptual disturbance. Patients insight and judgment are fair. Diagnostics Vital Signs (24Hr): Vital Signs - 24 hr 11/10/22 18:00 11/11/22 08:50 Temperature 97.6 F 97.3 F Pulse Rate 68 106 H Respiratory Rate 16 18 Blood Pressure 116/78 107/64 Pulse Oximetry 98 98 Oxygen Delivery Method Room Air Room Air BMI result Body Mass Index 29.2 Labs 11/02/22 23:52 11/03/22 16:40 Medications Medications Current Medications Acetaminophen (Acetaminophen 325 Mg Tablet) 650 mg PO Q6H PRN PRN Reason: Headache/Pain Mild Scale (1-3) Last Admin: 11/06/22 18:42 Dose: 650 mg Al Hydroxide/Mg Hydroxide (Magnesium Hydrox/Alum Hydrox 30 Ml Oral.Susp) 30 ml PO Q6H PRN PRN Reason: Heartburn/Nausea Bupropion HCl (Bupropion Hcl Xl 300 Mg Tab.Er.24h) 300 mg PO DAILY [facility] Last Admin: 11/11/22 08:37 Dose: 300 mg Clonazepam (Clonazepam 1 Mg Tablet) 1 mg PO BID PRN PRN Reason: Anxiety Last Admin: 11/11/22 08:37 Dose: 1 mg Gabapentin (Gabapentin 100 Mg Capsule) 200 mg PO BEDTIME [place] Last Admin: 11/10/22 19:17 Dose: 200 mg Hydroxyzine HCl (Hydroxyzine Hcl 50 Mg Tablet) 50 mg PO BID PRN PRN Reason: Anxiety Last Admin: 11/11/22 08:37 Dose: 50 mg Magnesium Hydroxide (Milk Of Magnesia 30 Ml Oral.Susp) 30 ml PO DAILY PRN PRN Reason: Constipation Mirtazapine (Mirtazapine 30 Mg Tablet) 30 mg PO BEDTIME [place]ING Last Admin: 11/10/22 19:17 Dose: 30 mg Nicotine Polacrilex (Nicotine Polacrilex 2 Mg Gum) 4 mg BUCCAL Q2H PRN PRN Reason: Nicotine Cravings Olanzapine (Olanzapine 10 Mg Tablet) 20 mg PO BEDTIME IRVING Last Admin: 11/10/22 19:17 Dose: 20 mg Sertraline HCl (Sertraline Hcl 100 Mg Tablet) 100 mg PO DAILY [facility] Last Admin: 11/11/22 08:37 Dose: 100 mg Trazodone HCl (Trazodone Hcl 50 Mg Tablet) 150 mg PO BEDTIME PRN PRN Reason: Insomnia Last Admin: 11/10/22 19:16 Dose: 150 mg Allergies Allergies Allergy/AdvReac Type Severity Reaction Status Date / Time No Known Allergies Allergy Verified 11/02/22 18:23 [No Known Allergies*] Assessment & Plan Assessment & Plan (1) MDD (major depressive disorder), recurrent episode, severe: Status: Resolved Code(s): F33.2 - Major depressive disorder, recurrent severe without psychotic features (2) Chronic post-traumatic stress disorder (PTSD): Status: Acute Code(s): F43.12 - Post-traumatic stress disorder, chronic Plan 52 year old man with a history of PTSD, MDD and Polysubstance Dependence. He was recently discharged from after a week long hospitalization. He presented to the ED with increased SI with plan to OD on medications. Patient says that after his discharge, he was unable to fill his medications. He reports homelessness as being a factor in getting his medications. He tested positive for cocaine and fentanyl. Patient reported increased depression, helplessness, hopelessness, worthlessness and SI. Plan: CV 15 min safety checks Disposition planning. Bupropion Hcl Xl 300 mg PO DAILY Clonazepam 1mg PO BID PRN anxiety Gabapentin 200 mg PO BEDTIME Hydroxyzine 50 mg PO BID PRN anxiety Mirtazapine 30 mg PO BEDTIME Olanzapine 20 mg PO BEDTIME Sertraline 100mg PO DAILY Trazodone 150 mg PO BEDTIME PRN insomnia 11/05: Continue current plan of care. Encourage engagement in milieu and groups. 11/06: Continue current plan of care. Encourage engagement in milieu and groups. 11/07: Patient reports he would like to stay on current medication regimen. Pt states he feels his mood is improving. He is [facility] a program to help with his substance abuse. grove worker notified. 11/08: Patient reports his mood improving. He wanted Zoloft increased to 100mg daily, to see if it helps with his mood/anxiety. Patient stated, he no longer wants assistance in substance abuse. Pt is waiting for a bed at [facility]. 11/09: Continue with current mediation regimen. Patient continues to report anxie ty and depression. He reports he does not want to continue using substances and hopes he can stay sober. grove worker is waiting to hear back from [facility]. 11/10: Patient shaved maldonado this morning. He reports feeling good today. Patient stated his depression and anxiety have decreased and is looking forward to going to [facility]. Continue with current medication regimen. 11/11 Pt reports improvement and feeling more ready for discharge; Continue current treatmnet plan Patient educated on: medication risk/benefits and therapeutic strategies Informed Consent: further education needed Reason for continued inpatient stay Substantial Risk for: harm to self, inability to function and rapid decompensation Time Spent With Patient Time: Total time managing care of this patient today __15__ minutes.
[2022-11-11 18:00] VITALS: BP 110/64; PULSE 102; TEMP 122; TEMP 50; O2SAT 98
[2022-11-11] MEDS: traZODone HCL 50 MG TABLET 150 MG PO (19:32)
[2022-11-11] MEDS: OLANZapine 10 MG TABLET 20 MG PO (19:32)
[2022-11-11] MEDS: Gabapentin 100 MG CAPSULE 200 MG PO (19:32)
[2022-11-11] MEDS: Mirtazapine 30 MG TABLET PO (19:33)
[2022-11-12 06:00] VITALS: BP 121/76; PULSE 94; RESP 18; TEMP 36.6; O2SAT 197
[2022-11-12] MEDS: Sertraline HCL 100 MG TABLET PO (08:42)
[2022-11-12] MEDS: buPROPion HCl XL 300 MG TAB.ER.24H PO (08:42)
[2022-11-12] MEDS: clonazePAM 1 MG TABLET PO (09:35)
[2022-11-12] MEDS: hydrOXYzine HCL 50 MG TABLET PO ×2 (09:35→18:50)
--- NOTE | 2022-11-12 11:27 | HO.PSYCHPN ---
Subjective Subjective Date of Service: 11/12/22 Reason For Visit: psychiatric emergency Subjective Notes: Conditional Voluntary Interim History: Patient reports feeling good. Pt says he is looking forward to discharge. He reports his anxiety and depression have decreased and believes current medications are helpful. He denies side effects. Patient reports sleeping well. . Patient may be discharged on Sunday to [facility]. Patient denies SI/HI/VH/AH at this time. Medication Compliance: Yes Side effects from medications: No Attending Groups: Yes Review of Systems Acute medical concerns: No Medical Review of Systems: unchanged Review of Systems Review of Systems Constitutional : No Weight loss, No Fever, No Chills, No Fatigue, No Malaise Cardiovascular : No Chest Pain, No SOB, No Dyspnea on Exertion, No Orthopnea, No Edema, No Palpitations Respiratory : No Cough, No Sputum, No Wheezing Gastrointestinal : No Nausea, No Vomiting, No Diarrhea, No Constipation, No abdominal Pain, No Hematochezia, No Melena Genitourinary : No Dysuria, No Urinary Frequency, No Hematuria, Musculoskeletal : No joint pain, No Myalgias, No Joint Swelling Skin : No Skin Lesions, No rash Neuro : No Weakness, No Numbness, No Dizziness, No Headache Psych : No Anxiety/Panic, + Depression Heme/Lymph: No Bruising, No Bleeding,No Lymphadenopathy Endocrine : No Polyuria, No Polydipsia All other systems reviewed and are negative Constitutional: Reports as per HPI Eyes: Reports as per HPI Reports as per HPI Cardiovascular: Reports as per HPI Respiratory: Reports as per HPI Gastrointestinal: Reports as per HPI Genitourinary: Reports as per HPI Musculoskeletal: Reports as per HPI Skin/Breast: Reports as per HPI Reports as per HPI Psychiatric: Reports as per HPI Endocrine: Reports as per HPI Hematologic/Lymphatic: Reports as per HPI Allergic/Immunologic: Reports as per HPI Mental Status Exam Mental Status Exam Narrative: Pt is alert and oriented; behavior is cooperative, friendly and calm; patient is not in distress; dressed in casual attire; mood is described as good ; eye contact appropriate; Speech is normal rate, volume and prosody and not pressured; no psychomotor agitation/retardation present; thought process is organized and goal directed; Thought content is on tx; otherwise pertinent to relevant topics and without any delusional content, paranoid ideations or grandiosity; denies any SI/HI. There is no evidence of perceptual disturbance. Patients insight and judgment are fair. Diagnostics Vital Signs (24Hr): Vital Signs - 24 hr 11/11/22 18:00 11/12/22 06:00 Temperature 122 F H 97.8 F Pulse Rate 102 H 94 Respiratory Rate 18 Blood Pressure 110/64 121/76 Pulse Oximetry 98 197 H Oxygen Delivery Method Room Air Room Air BMI result Body Mass Index 29.2 Labs 11/02/22 23:52 11/03/22 16:40 Medications Medications Current Medications Acetaminophen (Acetaminophen 325 Mg Tablet) 650 mg PO Q6H PRN PRN Reason: Headache/Pain Mild Scale (1-3) Last Admin: 11/06/22 18:42 Dose: 650 mg Al Hydroxide/Mg Hydroxide (Magnesium Hydrox/Alum Hydrox 30 Ml Oral.Susp) 30 ml PO Q6H PRN PRN Reason: Heartburn/Nausea Bupropion HCl (Bupropion Hcl Xl 300 Mg Tab.Er.24h) 300 mg PO DAILY [facility] Last Admin: 11/12/22 08:42 Dose: 300 mg Gabapentin (Gabapentin 100 Mg Capsule) 200 mg PO BEDTIME [place] Last Admin: 11/11/22 19:32 Dose: 200 mg Hydroxyzine HCl (Hydroxyzine Hcl 50 Mg Tablet) 50 mg PO BID PRN PRN Reason: Anxiety Last Admin: 11/12/22 09:35 Dose: 50 mg Magnesium Hydroxide (Milk Of Magnesia 30 Ml Oral.Susp) 30 ml PO DAILY PRN PRN Reason: Constipation Mirtazapine (Mirtazapine 30 Mg Tablet) 30 mg PO BEDTIME [place] Last Admin: 11/11/22 19:33 Dose: 30 mg Nicotine Polacrilex (Nicotine Polacrilex 2 Mg Gum) 4 mg BUCCAL Q2H PRN PRN Reason: Nicotine Cravings Olanzapine (Olanzapine 10 Mg Tablet) 20 mg PO BEDTIME [place] Last Admin: 11/11/22 19:32 Dose: 20 mg Sertraline HCl (Sertraline Hcl 100 Mg Tablet) 100 mg PO DAILY [place] Last Admin: 11/12/22 08:42 Dose: 100 mg Trazodone HCl (Trazodone Hcl 50 Mg Tablet) 150 mg PO BEDTIME PRN PRN Reason: Insomnia Last Admin: 11/11/22 19:32 Dose: 150 mg Allergies Allergies Allergy/AdvReac Type Severity Reaction Status Date / Time No Known Allergies Allergy Verified 11/02/22 18:23 [No Known Allergies*] Assessment & Plan Assessment & Plan (1) MDD (major depressive disorder), recurrent episode, severe: Status: Resolved Code(s): F33.2 - Major depressive disorder, recurrent severe without psychotic features (2) Chronic post-traumatic stress disorder (PTSD): Status: Acute Code(s): F43.12 - Post-traumatic stress disorder, chronic Plan 52 year old man with a history of PTSD, MDD and Polysubstance Dependence. He was recently discharged from after a week long hospitalization. He presented to the ED with increased SI with plan to OD on medications. Patient says that after his discharge, he was unable to fill his medications. He reports homelessness as being a factor in getting his medications. He tested positive for cocaine and fentanyl. Patient reported increased depression, helplessness, hopelessness, worthlessness and SI. Plan: CV 15 min safety checks Disposition planning. Bupropion Hcl Xl 300 mg PO DAILY Clonazepam 1mg PO BID PRN anxiety Gabapentin 200 mg PO BEDTIME Hydroxyzine 50 mg PO BID PRN anxiety Mirtazapine 30 mg PO BEDTIME Olanzapine 20 mg PO BEDTIME Sertraline 100mg PO DAILY Trazodone 150 mg PO BEDTIME PRN insomnia 11/05: Continue current plan of care. Encourage engagement in milieu and groups. 11/06: Continue current plan of care. Encourage engagement in milieu and groups. 11/07: Patient reports he would like to stay on current medication regimen. Pt states he feels his mood is improving. He is [facility] a program to help with his substance abuse. mold yard worker notified. 11/08: Patient reports his mood improving. He wanted Zoloft increased to 100mg daily, to see if it helps with his mood/anxiety. Patient stated, he no longer wants assistance in substance abuse. Pt is waiting for a bed at [facility]. 11/09: Continue with current mediation regimen. Patient continues to report anxiety and depression. He reports he does not want to continue using substances and hopes he can stay sober. mold yard worker is waiting to hear back from [facility]. 11/10: Patient shaved maldonado this morning. He reports feeling good today. Patient stated his depression and anxiety have decreased and is looking forward to going to [facility]. Continue with current medication regimen. 11/11 Pt reports improvement and feeling more ready for discharge; Continue current treatmnet plan 11/12 continue treatmetn plan Reason for continued inpatient stay Substantial Risk for: harm to self and rapid decompensation Time Spent With Patient Time: Total time managing care of this patient today ____ minutes.
[2022-11-12 18:00] VITALS: BP 117/72; PULSE 95; RESP 16; TEMP 36.4; O2SAT 98
[2022-11-12] MEDS: traZODone HCL 50 MG TABLET 150 MG PO (19:41)
[2022-11-12] MEDS: OLANZapine 10 MG TABLET 20 MG PO (19:41)
[2022-11-12] MEDS: Mirtazapine 30 MG TABLET PO (19:42)
[2022-11-12] MEDS: Gabapentin 100 MG CAPSULE 200 MG PO (19:42)
[2022-11-13] MEDS: clonazePAM 1 MG TABLET PO ×2 (08:26→17:54)
[2022-11-13] MEDS: buPROPion HCl XL 300 MG TAB.ER.24H PO (08:26)
[2022-11-13] MEDS: Sertraline HCL 100 MG TABLET PO (08:26)
[2022-11-13 08:35] VITALS: BP 118/72; PULSE 109; RESP 16; TEMP 36.6; O2SAT 95
--- NOTE | 2022-11-13 14:01 | P.PNPSI_ITS ---
Documented by User: Flory River NP 11/23/22 16:02 Subjective Subjective Date of Service: 11/13/22 Reason For Visit: psychiatric emergency Subjective Notes: Conditional Voluntary Interim History: Reviewed in team. Patient reports feeling much better than when I came in . Patient reports he is looking forward to going to [facility] and NA/AA meetings. Pt plans on following up with outpatient providers. He states he does not need any refills on mediations d/t never picking up my scripts from the last time I was here . Medication Compliance: Yes Side effects from medications: No Attending Groups: Intermittent Review of Systems Constitutional: Reports as per HPI Eyes: Reports as per HPI Reports as per HPI Cardiovascular: Reports as per HPI Respiratory: Reports as per HPI Gastrointestinal: Reports as per HPI Genitourinary: Reports as per HPI Musculoskeletal: Reports as per HPI Skin/Breast: Reports as per HPI Reports as per HPI Psychiatric: Reports as per HPI Endocrine: Reports as per HPI Hematologic/Lymphatic: Reports as per HPI Allergic/Immunologic: Reports as per HPI Mental Status Exam Mental Status Exam Narrative: Pt is alert and oriented; behavior is cooperative, friendly and calm; patient is not in distress; dressed in casual attire; mood is described as good ; eye contact appropriate; Speech is normal rate, volume and prosody and not pressured; no psychomotor agitation/retardation present; thought process is organized and goal directed; Thought content is on tx; otherwise pertinent to relevant topics and without any delusional content, paranoid ideations or grandiosity; denies any SI/HI. There is no evidence of perceptual disturbance. Patients insight and judgment appear fair. Diagnostics Vital Signs (24Hr): Vital Signs - 24 hr 11/12/22 18:00 11/13/22 08:35 Temperature 97.6 F 97.8 F Pulse Rate 95 109 H Respiratory Rate 16 16 Blood Pressure 117/72 118/72 Pulse Oximetry 98 95 Oxygen Delivery Method Room Air Room Air BMI result Body Mass Index 29.2 Labs 11/02/22 23:52 11/03/22 16:40 Medications Medications Current Medications Acetaminophen (Acetaminophen 325 Mg Tablet) 650 mg PO Q6H PRN PRN Reason: Headache/Pain Mild Scale (1-3) Last Admin: 11/06/22 18:42 Dose: 650 mg Al Hydroxide/Mg Hydroxide (Magnesium Hydrox/Alum Hydrox 30 Ml Oral.Susp) 30 ml PO Q6H PRN PRN Reason: Heartburn/Nausea Bupropion HCl (Bupropion Hcl Xl 300 Mg Tab.Er.24h) 300 mg PO DAILY IRVING Last Admin: 11/13/22 08:26 Dose: 300 mg Clonazepam (Clonazepam 1 Mg Tablet) 1 mg PO BID PRN PRN Reason: Anxiety Last Admin: 11/13/22 08:26 Dose: 1 mg Gabapentin (Gabapentin 100 Mg Capsule) 200 mg PO BEDTIME IRVING Last Admin: 11/12/22 19:42 Dose: 200 mg Hydroxyzine HCl (Hydroxyzine Hcl 50 Mg Tablet) 50 mg PO BID PRN PRN Reason: Anxiety Last Admin: 11/12/22 18:50 Dose: 50 mg Magnesium Hydroxide (Milk Of Magnesia 30 Ml Oral.Susp) 30 ml PO DAILY PRN PRN Reason: Constipation Mirtazapine (Mirtazapine 30 Mg Tablet) 30 mg PO BEDTIME IRVING Last Admin: 11/12/22 19:42 Dose: 30 mg Nicotine Polacrilex (Nicotine Polacrilex 2 Mg Gum) 4 mg BUCCAL Q2H PRN PRN Reason: Nicotine Cravings Olanzapine (Olanzapine 10 Mg Tablet) 20 mg PO BEDTIME IRVING Last Admin: 11/12/22 19:41 Dose: 20 mg Sertraline HCl (Sertraline Hcl 100 Mg Tablet) 100 mg PO DAILY [facility] Last Admin: 11/13/22 08:26 Dose: 100 mg Trazodone HCl (Trazodone Hcl 50 Mg Tablet) 150 mg PO BEDTIME PRN PRN Reason: Insomnia Last Admin: 11/12/22 19:41 Dose: 150 mg Allergies Allergies Allergy/AdvReac Type Severity Reaction Status Date / Time No Known Allergies Allergy Verified 11/02/22 18:23 [No Known Allergies*] Assessment & Plan Assessment & Plan (1) MDD (major depressive disorder), recurrent episode, severe: Status: Resolved Code(s): F33.2 - Major depressive disorder, recurrent severe without psychotic features (2) Chronic post-traumatic stress disorder (PTSD): Status: Acute Code(s): F43.12 - Post-traumatic stress disorder, chronic Plan 52 year old man with a history of PTSD, MDD and Polysubstance Dependence. He was recently discharged from after a week long hospitalization. He presented to the ED with increased SI with plan to OD on medications. Patient says that after his discharge, he was unable to fill his medications. He reports homelessness as being a factor in getting his medications. He tested positive for cocaine and fentanyl. Patient reported increased depression, helplessness, hopelessness, wo rthlessness and SI. Plan: CV 15 min safety checks Disposition planning. Bupropion Hcl Xl 300 mg PO DAILY Clonazepam 1mg PO BID PRN anxiety Gabapentin 200 mg PO BEDTIME Hydroxyzine 50 mg PO BID PRN anxiety Mirtazapine 30 mg PO BEDTIME Olanzapine 20 mg PO BEDTIME Sertraline 100mg PO DAILY Trazodone 150 mg PO BEDTIME PRN insomnia 11/05: Continue current plan of care. Encourage engagement in milieu and groups. 11/06: Continue current plan of care. Encourage engagement in milieu and groups. 11/07: Patient reports he would like to stay on current medication regimen. Pt s tates he feels his mood is improving. [facility] a program to help with his substance abuse. [employer] worker notified. 11/08: Patient reports his mood improving. He wanted Zoloft increased to 100mg daily, to see if it helps with his mood/anxiety. Patient stated, he no longer wants assistance in substance abuse. Pt is waiting for a bed at [facility]. 11/09: Continue with current mediation regimen. Patient continues to report anxiety and depression. He reports he does not want to continue using substances and hopes he can stay sober. [employer] worker is waiting to hear back from [facility]. 11/10: Patient shaved maldonado this morning. He reports feeling good today. Patient stated his depression and anxiety have decreased and is looking forward to going to [facility]. Continue with current medication regimen. 11/11 Pt reports improvement and feeling more ready for discharge; Continue current treatmnet plan 11/12 continue treatmetn plan 11/13: Patient reports feeling much better . He is looking forward to discharging tomorrow and going to [facility]. Pt plans on following up with outpatient providers. He states he does not need any refills on mediations d/t never picking up my scripts from the last time I was here . T/W discussed decreasing patients klonopin doseage d/t his substance abuse history. Patient reported klonopin is beneficial in decreasing his anxiety significantly. Will continue this medication d/t benefits for patient. Patient educated on: diagnosis, medication risk/benefits, substance abuse and therapeutic strategies Informed Consent: understands Reason for continued inpatient stay Substantial Risk for: stable for discharge Time Spent With Patient Time: Total time managing care of this patient today ____ minutes. Documented by User: Deng Echeverria MD 11/23/22 16:48 Subjective Subjective Reason For Visit: psychiatric emergency Diagnostics Labs 11/02/22 23:52 11/03/22 16:40 Assessment & Plan Assessment & Plan (1) MDD (major depressive disorder), recurrent episode, severe: Status: Resolved Code(s): F33.2 - Major depressive disorder, recurrent severe without psychotic features (2) Chronic post-traumatic stress disorder (PTSD): Status: Acute Code(s): F43.12 - Post-traumatic stress disorder, chronic Plan 52 year old man with a history of PTSD, MDD and Polysubstance Dependence. He was recently discharged from after a week long hospitalization. He presented to the ED with increased SI with plan to OD on medications. Patient says that after his discharge, he was unable to fill his medications. He reports homelessness as being a factor in getting his medications. He tested positive for cocaine and fentanyl. Patient reported increased depression, helplessness, hopelessness, worthlessness and SI. Plan: CV 15 min safety checks Disposition planning. Bupropion Hcl Xl 300 mg PO DAILY Clonazepam 1mg PO BID PRN anxiety Gabapentin 200 mg PO BEDTIME Hydroxyzine 50 mg PO BID PRN anxiety Mirtazapine 30 mg PO BEDTIME Olanzapine 20 mg PO BEDTIME Sertraline 100mg PO DAILY Trazodone 150 mg PO BEDTIME PRN insomnia 11/05: Continue current plan of care. Encourage engagement in milieu and groups. 11/06: Continue current plan of care. Encourage engagement in milieu and groups. 11/07: Patient reports he would like to stay on current medication regimen. Pt states he feels his mood is improving. He is [facility] a program to help with his substance abuse. [employer] worker notified. 11/08: Patient reports his mood improving. He wanted Zoloft increased to 100mg daily, to see if it helps with his mood/anxiety. Patient stated, he no longer wants assistance in substance abuse. Pt is waiting for a bed at [facility]. 11/09: Continue with current mediation regimen. Patient continues to report anxie ty and depression. He reports he does not want to continue using substances and hopes he can stay sober. [employer] worker is waiting to hear back from [facility]. 11/10: Patient shaved maldonado this morning. He reports feeling good today. Patient stated his depression and anxiety have decreased and is looking forward to going to [facility]. Continue with current medication regimen. 11/11 Pt reports improvement and feeling more ready for discharge; Continue current treatmnet plan 11/12 continue treatmetn plan 11/13: Patient reports feeling much better . He is looking forward to discharging tomorrow and going to [facility]. Pt plans on following up with outpatient providers. He states he does not need any refills on mediations d/t never picking up my scripts from the last time I was here . T/W discussed decreasing patients klonopin doseage d/t his substance abuse history. Patient reported klonopin is beneficial in decreasing his anxiety significantly. Will continue this medication d/t benefits for patient.
[2022-11-13] MEDS: hydrOXYzine HCL 50 MG TABLET PO (17:53)
[2022-11-13 19:35] VITALS: BP 118/55; PULSE 127; TEMP 37.1
[2022-11-13] MEDS: Mirtazapine 30 MG TABLET PO (19:40)
[2022-11-13] MEDS: Gabapentin 100 MG CAPSULE 200 MG PO (19:41)
[2022-11-13] MEDS: OLANZapine 10 MG TABLET 20 MG PO (19:42)
[2022-11-14] MEDS: buPROPion HCl XL 300 MG TAB.ER.24H PO (08:28)
[2022-11-14] MEDS: Sertraline HCL 100 MG TABLET PO (08:28)
[2022-11-14 08:30] VITALS: BP 114/75; PULSE 101; RESP 18; TEMP 36.4
[2022-11-14] MEDS: Naloxone HCl Nasal TAKE HOME 4 MG SPRAY NOSTRILALT (08:42)
[2022-11-14] MEDS: clonazePAM 1 MG TABLET PO (08:49)
[2022-11-14] MEDS: hydrOXYzine HCL 50 MG TABLET PO (08:49)
--- NOTE | 2022-11-14 10:15 | PM.PSYDC ---
DS: Providers Provider Date of Service: 11/14/22 Date of admission: 11/03/22 17:44 Date of discharge: 11/14/22 Primary care physician: Flex Rascon MD Attending physician on admission: Zafar Galicia Attending physician on discharge: Robert Bronson Discharging clinician: Flory River DS: Diagnosis Discharge Diagnosis (1) MDD (major depressive disorder), recurrent episode, severe: Status: Resolved (2) Chronic post-traumatic stress disorder (PTSD): Status: Acute DS: Medications Discharge Medications Home Medications: Home Medications Medication Instructions Recorded Confirmed bupropion HCl 300 mg 24 hr tablet, 300 mg PO DAILY 11/02/22 11/02/22 extended release clonazepam 1 mg tablet 1 mg PO BID PRN Anxiety 11/02/22 11/02/22 gabapentin 100 mg capsule 200 mg PO BEDTIME 11/02/22 11/02/22 hydroxyzine pamoate 50 mg capsule 50 mg PO BID PRN Anxiety 11/02/22 11/02/22 mirtazapine 30 mg tablet 30 mg PO BEDTIME 11/02/22 11/02/22 olanzapine 20 mg tablet 20 mg PO BEDTIME 11/02/22 11/02/22 sertraline 25 mg tablet 75 mg PO DAILY 11/02/22 11/02/22 trazodone 50 mg tablet 100 mg PO BEDTIME PRN Insomnia 11/02/22 11/02/22 Mental Status Exam Mental Status Exam Narrative: Pt is alert and oriented; behavior is cooperative, friendly and calm; patient is not in distress; dressed in casual attire; mood is described as good ; eye contact appropriate; Speech is normal rate, volume and prosody and not pressured; no psychomotor agitation/retardation present; thought process is organized and goal directed; Thought content is on tx; otherwise pertinent to relevant topics and without any delusional content, paranoid ideations or grandiosity; denies any SI/HI. There is no evidence of perceptual disturbance. Patients insight and judgment are fair. DS: Summary Hospital Course Hospital Course: 52 year old man with a history of PTSD, MDD and Polysubstance Dependence. He was recently discharged from after a week long hospitalization. He presented to the ED with increased SI with plan to OD on medications. Patient says that after his discharge, he was unable to fill his medications. He reports homelessness as being a factor in getting his medications. He tested positive for cocaine and fentanyl. Patient reported increased depression, helplessness, hopelessness, worthlessness and SI. During hospital stay, patient reported he wanted to stay on current medication regimen from last admission. Pt states he feels his mood is improving with medications. Patient requested Zoloft to be increased to 100mg daily, to see if it helps with his mood/anxiety. Patient stated, he no longer wants assistance in substance abuse; is [facility] He reports he does not want to continue using substances and hopes he can stay sober; however, does not want to go to a substance abuse program. Patient reports feeling much better than when he came into the hospital. Pt plans on following up with outpatient providers. He states he does not need any refills on mediations d/t never picking up my scripts from the last time I was here . Reviewed case with Dr. Bronson. Time spent discussing smoking cessation with patient: 3 to 10 minutes Status at Discharge Cognitive/behavioral status at discharge: Patient was interviewed prior to discharge and found to be fully oriented and without any SI or HI. Patient has insight and demonstrates good judgment in terms of wanting to pursue treatment. Patient is not in imminent risk of harm to self or others and has a safety plan that includes presenting to the closest ER or calling 911 if feeling unsafe. Patient has been observed closely by nursing and unit staff throughout admission; patient has not engaged in any behaviors that suggest dangerousness to self or others and has demonstrated appropriate behaviors and impulse control. Functional status at discharge: independent ambulation Overall status at discharge: patient is back to baseline Time Spent with Patient Time attestation: Total time managing care of this patient today ____ minutes. Time spent: Less than 30 minutes Discharge Plan Discharge Anticipated Discharge Date/Time: 11/14/22 11:45 Patient Disposition: Halfway Discharge Diagnosis: Major depressive d/o, PTSD Referrals: [facility] Kriss Jones [Other] - 12/06/22 1:00 pm (Telehealth) [facility] Billy Kohli [Other] - 12/14/22 8:40 am (Telehealth.) [facility] [Other] - 11/14/22 4:30 pm Flex Rascon MD [Primary Care Provider] - 1 Week Discharge Medications: Continued trazodone 50 mg tablet 100 mg PO BEDTIME PRN (Reason: Insomnia) clonazepam 1 mg tablet 1 mg PO BID PRN (Reason: Anxiety) hydroxyzine pamoate 50 mg capsule 50 mg PO BID PRN (Reason: Anxiety) mirtazapine 30 mg tablet 30 mg PO BEDTIME sertraline 25 mg tablet 75 mg PO DAILY gabapentin 100 mg capsule 200 mg PO BEDTIME olanzapine 20 mg tablet 20 mg PO BEDTIME bupropion HCl 300 mg tablet extended release 24 hr 300 mg PO DAILY Discharge Orders: Discharge Order (Routine); Ordered 11/13/22 Ordered By: Flory River Diet: Regular diet Activity on Discharge: As tolerated Stand Alone Forms: Patient Portal Discharge page, Community Support Care Plan Goals: Maintain mood and safe behaviors Take medications as prescribed Continue to pursue sobriety Practice coping skills Continue with outpatient providers and reach out to them as needed Health Concerns: Mood stability and behaviors Sobriety Plan of Treatment: Follow up with your PCP, psychiatric provider and other outpatient providers regarding above concerns Take medications as prescribed Assessment: Patient was interviewed prior to discharge and found to be fully oriented and without any SI or HI. Patient has insight and demonstrates good judgment in terms of wanting to pursue treatment. Patient is not in imminent risk of harm to self or others and has a safety plan that includes presenting to the closest ER or calling 911 if feeling unsafe. Patient has been observed closely by nursing and unit staff throughout admission; patient has not engaged in any behaviors that suggest dangerousness to self or others and has demonstrated appropriate behaviors and impulse control Discharge Date/Time: 11/14/22 11:51
== END 2022-11-14 11:51 | disposition home or self-care (01) | DRG 751 ==
LOC: HO.ED 11-03 11:45 → HO.PM5 11-03 18:06
PROVIDERS: Emergency Medicine; Physician Assistant; Admitting Provider Psychiatry & Neurology Psychiatry; Emergency Provider Emergency Medicine; PCP Internal Medicine; Visit Provider Registered Nurse
DX: F33.2 Major depressive disorder, recurrent severe without psychotic features (principal); R45.851 Suicidal ideations; F43.12 Post-traumatic stress disorder, chronic; F11.20 Opioid dependence, uncomplicated; F17.210 Nicotine dependence, cigarettes, uncomplicated; F19.20 Other psychoactive substance dependence, uncomplicated; Z20.822 Contact with and (suspected) exposure to COVID-19; Z79.899 Other long term (current) drug therapy
CPT/HCPCS: 36415; 80048; 80053; 80307; 81003; 83735; 85025; 87635; 93005; 99285; S9485

== ENCOUNTER 2022-11-19 17:04 | Emergency (ER) | payer OTHER, SELFPAY ==
[2022-11-19 17:28] VITALS: BP 120/80; BP 123/78; PULSE 106; PULSE 112; RESP 14; TEMP 37.2; O2SAT 98; BMI 28.1
--- NOTE | 2022-11-19 18:14 | ED.PSYCH ---
HPI - Psych General Chief Complaint: Psychiatric Symptoms Stated Complaint: crisis Time Seen by Provider: 11/19/22 17:47 Source: patient Mode of arrival: ambulatory Limitations: no limitations History of Present Illness HPI Narrative: This is a 52-year-old male with a history of polysubstance use, PTSD, depression, anxiety who presents the ER with complaints of depression with suicidal thoughts with no plan. Patient denies HI, hallucinations. Patient reports he intermittently uses heroin and cocaine. He reports he sniffs this. Denies any additional substance use. Patient reports chronic pain in both of his feet status post amputee secondary to frostbite. Patient reports he is currently homeless. Patient reports his children are not talking to him and his father refuses to pickling operator his phone calls. Patient believes it may be contributing to his depression Related Data Home Medications Medication Instructions Recorded Confirmed bupropion HCl 300 mg 24 hr tablet, 300 mg PO DAILY 11/02/22 11/02/22 extended release clonazepam 1 mg tablet 1 mg PO BID PRN Anxiety 11/02/22 11/02/22 gabapentin 100 mg capsule 200 mg PO BEDTIME 11/02/22 11/02/22 hydroxyzine pamoate 50 mg capsule 50 mg PO BID PRN Anxiety 11/02/22 11/02/22 mirtazapine 30 mg tablet 30 mg PO BEDTIME 11/02/22 11/02/22 olanzapine 20 mg tablet 20 mg PO BEDTIME 11/02/22 11/02/22 sertraline 25 mg tablet 75 mg PO DAILY 11/02/22 11/02/22 trazodone 50 mg tablet 100 mg PO BEDTIME PRN Insomnia 11/02/22 11/02/22 Allergies Allergy/AdvReac Type Severity Reaction Status Date / Time No Known Allergies Allergy Verified 11/02/22 18:23 [No Known Allergies*] Review of Systems Review of Systems: Yes all other systems are reviewed and are negative Constitutional: Constitutional: Reports no additional constitutional complaints, Denies body ache(s), Denies chills, Denies fever(s), Denies headache(s) and Denies weakness Eyes: Eyes: Reports no additional eye complaints and Denies change in vision ENT: Reports system reviewed and no additional complaints, except as documented, Denies dizziness, Denies headache(s), Denies nasal congestion, Denies nasal discharge and Denies neck pain Cardiovascular: Cardiovascular: Reports no additional cardiovascular complaints, Denies chest pain, Denies leg edema and Denies dyspnea Respiratory: Respiratory: Reports no additional respiratory complaints, Denies cough and Denies dyspnea Gastrointestinal: Gastrointestinal: Reports no additional gastrointestinal complaints, Denies abdominal pain, Denies diarrhea, Denies nausea and Denies vomiting Genitourinary: Genitourinary: Denies urinary incontinence Musculoskeletal: Musculoskeletal: Reports no additional musculoskeletal complaints, Denies back pain, Denies arthralgias, Denies joint swelling, Denies neck pain, Denies numbness and Denies tingling Integumentary/Breasts: Skin/Breast: Reports system reviewed and no additional complaints, except as docu and Denies rash Neurologic: Reports system reviewed and no additional complaints, except as documented, Denies Abnormal speech present, Denies dizziness, Denies headache(s), Denies numbness, Denies tingling and Denies weakness Psychiatric: Psychiatric: Reports depression and Reports suicidal ideation PMFSH Past Medical History Attestation statement: The following information was validated with the patient. Source: old records reviewed and nursing notes reviewed Medical History Anxiety Chronic post-traumatic stress disorder (PTSD) Depression Frostbite of feet, bilateral Mood disorder Non-pressure chronic ulcer of other part of left foot with fat layer exposed Opioid dependence on agonist therapy Rhabdomyolysis Suicidal ideation Surgical History History of transmetatarsal amputation of left foot (09/20/22) Social History Social History Household Members: None Housing: Homeless Do you presently have visiting nurse or other home services: No Alcohol intake: never Patient Tobacco Use Status: Current everyday Tobacco user Tobacco use type: Cigarette Cigarette Packs Per Day: 0.5 Cigarettes Per Day: 5 Years Smoked: 20 Smoked in Last 30 Days: Yes e-Cigarette/Vaping Use: Never Used Second Hand Smoke Exposure: No Use of substances other than those prescribed or required for medical reasons: Yes Substance Use Type: Crack/Cocaine and Heroin Substance Use Frequency: Daily Last Used Substance: Days (ago) Any prior treatment program specific to substance use: No Advance Directives: Yes Advance Directives on File: Yes Advance Directives Date on File: 09/27/22 service: No Current occupational status: unemployed Sexual orientation: Straight/Heterosexual Physical Exam Vital Signs: Vital Signs: Last Vital Signs Temp 98.9 F 11/19/22 17:28 Pulse 106 H 11/19/22 17:28 Resp 14 11/19/22 17:28 BP 123/78 11/19/22 17:28 Pulse Ox 98 11/19/22 17:28 O2 Del Method Room Air 11/19/22 17:28 BMI result Body Mass Index 28.1 Const: General: cooperative, healthy appearing, comfortable and no acute distress Orientation/consciousness: patient oriented x3 Limitations: no limitations HEENT: Head: Yes normal to inspection Ears: hearing grossly normal bilaterally General nose exam: Normal external nose present Face and sinus: Yes normal facial exam Mouth: Normal oral and palatal mucosa present Throat: Yes posterior oropharynx normal Eyes: General: appearance normal, both eyes and all related structures Pupils: Equal, round and reactive pupils present Neck: Neck: Yes normal visual inspection Chest: Chest palpation & inspection: normal inspection of the chest Resp: Effort & Inspection: normal respiratory effort Auscultation: clear to auscultation bilaterally Cardio: Rate: regular rate Rhythm: regular rhythm Peripheral pulses: Peripheral pulses 2+ throughout GI: Inspection: Yes normal to inspection Palpation (GI): Soft to palpation and nontender Auscultation: normal bowel sounds Back/Spine/Pelvis: Thoracic/Lumbar Spine: thoracic and lumbar spine normal to inspection Skin: General skin exam: no rashes or lesions noted Neuro: General: patient oriented x3, no focal motor deficits and normal sensation to monofilament Cranial nerves: Yes Equal, round and reactive pupils present Cognition (Neuro): normal cognition Speech: No Abnormal speech present Gait exam (Neuro): Normal gait present Motor exam (neuro): 5/5 motor strength present throughout Extrem: Other: Patient with left foot transmetatarsal amputee-no signs of redness, warmth, drainage from the site. Normal pulses Patient with right foot 1st great toe amputation-no signs of redness, warmth, drainage the site. Normal pulses General: Yes normal to inspection Course Course Course Narrative: Patient placed in physician observation pending disposition Medical Decision Making Medical Decision Making MDM Narrative: 52-year-old male with history of anxiety, depression, polysubstance use here with increasing depression over the last few weeks suicidal thoughts with no plan. No concern for acute ingestion or trauma Will need labs, drug screen, crisis consultation Differential Diagnosis Differential Diagnoses: The differential diagnosis associated with the presentation includes Polysubstance use, depression, adjustment disorder Consult Healthcare Provider Management of the patient was discussed with: Procurement Clerk Seen by care team. Plan for respite in the morning Lab Data MDM Lab Attestation statement: I reviewed the patient's lab results. 11/19/22 18:13 11/19/22 18:13 Labs: Lab Results 11/19/22 11/19/22 11/19/22 Range/Units 18:13 18:13 18:13 WBC 10.9 H (4.8-10.8) X10*3/uL RBC 3.94 L (4.60-5.80) X10*6/uL Hgb 11.0 L (14.0-18.0) g/dl Hct 34.1 L (42.0-52.0) % MCV 86.5 (80.0-98.0) fL MCH 27.9 (27.0-33.0) pg MCHC 32.3 (31.0-36.0) g/dl RDW 14.8 (11.0-16.0) % Plt Count 338 D (160-400) X10*3/uL MPV 9.0 L (9.4-12.4) fL Immature Gran % (Auto) 0.4 (0.0-0.4) % Neut % (Auto) 66.9 (45-73) % Lymph % (Auto) 22.0 (20-40) % Garden % (Auto) 9.2 (2-11) % Eos % (Auto) 1.2 (0-4) % Baso % (Auto) 0.3 (0-2) % Lymph # (Auto) 2.4 (1.2-4.9) X10*3/uL Garden # (Auto) 1.0 (0.1-1.2) X10*3/uL Eos # (Auto) 0.1 (0.0-0.4) X10*3/uL Baso # (Auto) 0.0 (0.0-0.2) X10*3/uL Abs Immat Gran (auto) 0.04 H (0.00-0.03) X10*3/uL Absolute Neuts (auto) 7.3 (2.0-8.3) x10*3/uL Absolute Nucleated RBC 0.000 (0.0-0.012) X10*3/uL Nucleated RBC % (auto) 0.0 (0.0-0.2) /100WBC Sodium 143 (135-145) mmol/L Potassium 3.7 (3.3-5.1) mmol/L Chloride 104 (96-108) mmol/L Carbon Dioxide 29 (22-29) mmol/L Anion Gap 14 (12-20) BUN 16 (9-16) mg/dL Creatinine 1.30 (0.5-1.4) mg/dL Estim Creat Clear Calc 72.2 Estimated GFR 58 Random Glucose 91 (60-115) mg/dL Calcium 10.2 D (8.4-10.2) mg/dL Total Bilirubin 0.4 (0.0-1.0) mg/dL Direct Bilirubin 0.1 (0.0-0.5) mg/dL AST 22 (5-37) U/L ALT 21 (0-40) U/L Alkaline Phosphatase 149 H (39-117) U/L Total Protein 7.6 (6.5-8.0) g/dL Albumin 4.5 (3.5-5.0) g/dL Urine Opiates Screen POSITIVE H (Not Detect) Urine Fentanyl Screen POSITIVE H (Not Detect) Ur Barbiturates Screen Not Detected (Not Detect) Ur Phencyclidine Scrn Not Detected (Not Detect) Ur Amphetamines Screen Not Detected (Not Detect) U Benzodiazepines Scrn POSITIVE H (Not Detect) Urine Cocaine Screen POSITIVE H (Not Detect) U Marijuana (THC) Screen Not Detected (Not Detect) Ethyl Alcohol < 10 mg/dL Discharge Plan Discharge Clinical Impression: Depression, Polysubstance abuse Patient Disposition: Still a Patient Prescriptions: No Action trazodone 50 mg tablet 100 mg PO BEDTIME PRN (Reason: Insomnia) clonazepam 1 mg tablet 1 mg PO BID PRN (Reason: Anxiety) hydroxyzine pamoate 50 mg capsule 50 mg PO BID PRN (Reason: Anxiety) mirtazapine 30 mg tablet 30 mg PO BEDTIME sertraline 25 mg tablet 75 mg PO DAILY gabapentin 100 mg capsule 200 mg PO BEDTIME olanzapine 20 mg tablet 20 mg PO BEDTIME bupropion HCl 300 mg tablet extended release 24 hr 300 mg PO DAILY Interventions: [place]-Suicide Risk Severity Scale Last Done: 11/19/22 18:28
[2022-11-19 18:19] LABS: MANUAL DIFF FLAG NO
[2022-11-19 18:21] LABS: Basophils Percent Auto 0.3 % (0-2); Eosinophils Absolute Auto 0.1 X10*3/uL (0.0-0.4); Eosinophils Percent Auto 1.2 % (0-4); Hematocrit 34.1 % (42.0-52.0); Imm Gran Abs Auto 0.04 X10*3/uL (0.00-0.03); Imm Gran Pct Auto 0.4 % (0.0-0.4); Lymphocytes Absolute Auto 2.4 X10*3/uL (1.2-4.9); Mean Corpuscular HGB Conc 32.3 g/dl (31.0-36.0); Mean Corpuscular Hemoglobin 27.9 pg (27.0-33.0); Mean Corpuscular Volume 86.5 fL (80.0-98.0); Monocytes Percent Auto 9.2 % (2-11); Neutrophils Absolute Auto 7.3 x10*3/uL (2.0-8.3); Neutrophils Percent Auto 66.9 % (45-73); Platelet Count 338 X10*3/uL (160-400); Red Blood Count 3.94 X10*6/uL (4.60-5.80); Red Cell Distribution Width 14.8 % (11.0-16.0); White Blood Count 10.9 X10*3/uL (4.8-10.8)
[2022-11-19 18:41] LABS: Amphetamine Screen Urine Not Detected (Not Detect); Barbiturates, Urine Not Detected (Not Detect); Benzodiazepines Screen Urine POSITIVE (Not Detect); Cannabinoid Screen Urine Not Detected (Not Detect); Cocaine Screen Urine POSITIVE (Not Detect); Fentanyl, urine POSITIVE (Not Detect); Opiate Screen Urine POSITIVE (Not Detect); Phencyclidine Screen Urine Not Detected (Not Detect)
[2022-11-19 18:45] LABS: Alanine Aminotransferase 21 U/L (0-40); Albumin Level 4.5 g/dL (3.5-5.0); Alkaline Phosphatase 149 U/L (39-117); Anion Gap 14 (12-20); Aspartate Amino Transferase 22 U/L (5-37); Bilirubin Direct 0.1 mg/dL (0.0-0.5); Bilirubin Total 0.4 mg/dL (0.0-1.0); Blood Urea Nitrogen 16 mg/dL (9-16); Calcium 10.2 mg/dL (8.4-10.2); Carbon Dioxide 29 mmol/L (22-29); Chloride 104 mmol/L (96-108); Creatinine Clr Calc Pharmacy 72.2; Estimated Glomerular Filt Rate 58; Ethanol < 10 mg/dL; Glucose Random 91 mg/dL (60-115); Potassium 3.7 mmol/L (3.3-5.1); Sodium 143 mmol/L (135-145); Total Protein 7.6 g/dL (6.5-8.0)
[2022-11-19 22:32] VITALS: BP 110/65; PULSE 93; RESP 16; TEMP 37.4; O2SAT 96
--- NOTE | 2022-11-20 03:12 | PC.NURSE ---
Pt sleeping at the bedside in no apparent distress. Breaths are even, regular, and unlabored with equal chest rises. Will continue to monitor.
[2022-11-20 06:55] VITALS: BP 102/59; PULSE 98; RESP 17; TEMP 36.6; O2SAT 98
[2022-11-20] MEDS: clonazePAM 1 MG TABLET PO (14:26)
--- NOTE | 2022-11-20 14:50 | MHC.CARE ---
Patient accepted to [facility] for admission today, clinician will call back with intake details.
== END 2022-11-20 15:02 ==
PROVIDERS: Nurse Practitioner Family; Emergency Provider Internal Medicine; PCP Internal Medicine
DX: F33.1 Major depressive disorder, recurrent, moderate (principal); F11.10 Opioid abuse, uncomplicated; F14.10 Cocaine abuse, uncomplicated; F17.210 Nicotine dependence, cigarettes, uncomplicated; Z71.6 Tobacco abuse counseling; Z79.899 Other long term (current) drug therapy
CPT/HCPCS: 36415; 80048; 80076; 80307; 85025; 99284; S9485

== ENCOUNTER 2023-02-27 14:29 | Outpatient (AMB) | payer OTHER, SELFPAY ==
--- NOTE | 2023-02-27 14:42 | MHC.OFFVIS ---
Intake Vital Signs 02/27/23 14:47 Height 5 ft 9 in Weight 179 lb BMI 26.4 BP 114/81 Blood Pressure Location Rt brachial Position Sitting Pulse 104 H Intake Visit Reasons: F/u toe amputation Intake Note: This patient presents for a follow-up assessment status post toe amputation. Patient c/o; reports bilateral leg pain. Airport Utility Worker Required: No Accompanied by: Self / Same As Patient Allergies No Known Allergies [No Known Allergies*] Allergy (Verified 02/27/23 14:48) HPI HPI Comments History of Present Illness Details 53-year-old male returning with a previous history of bilateral frostbite of the toes, s/p right great toe amputation in left transmetatarsal amputation. His wounds are now well healed however he reports a combination of phantom pain, numbness, and stump pain which is making it difficult for him to walk. The pain is made worse with touching the feet. He denies any bleeding or discharge. [facility] Medical History Non-pressure chronic ulcer of other part of left foot with fat layer exposed Rhabdomyolysis Frostbite of feet, bilateral Suicidal ideation Chronic post-traumatic stress disorder (PTSD) Opioid dependence on agonist therapy Mood disorder Anxiety Depression Surgical History History of transmetatarsal amputation of left foot (09/20/22) Social History Household Members: None Housing: Homeless Do you presently have visiting nurse or other home services: No Alcohol intake: never Patient Tobacco Use Status: Current everyday Tobacco user Tobacco use type: Cigarette Cigarette Packs Per Day: 0.5 Cigarettes Per Day: 5 Years Smoked: 20 e-Cigarette/Vaping Use: Never Used Second Hand Smoke Exposure: No Substance Use Type: Crack/Cocaine and Heroin Advance Directives Date on File: 09/27/22 service: No Current occupational status: unemployed Sexual orientation: Straight/Heterosexual Review of Systems Const All systems reviewed & are unremarkable except as noted in HPI and below Musc Reports numbness (Bilateral feet) Neuro Reports as per HPI and Reports numbness (Bilateral feet) Physical Exam Vital Signs: Last Vital Signs Pulse 104 H 02/27/23 14:47 BP 114/81 02/27/23 14:47 BMI result Body Mass Index 26.4 Const General: healthy appearing Nutritional Appearance: well nourished Orientation/consciousness: patient oriented x3 Resp Effort & Inspection: normal respiratory effort GI Inspection: Yes normal to inspection Skin Other: Warm, dry, no rash Neuro General: patient oriented x3 Extrem Other: Right great toe amputation and left transmetatarsal amputation wounds are clean and intact without redness or discharge. No palpable mass or fluid collections identified. Tenderness to light palpation of the incision. Assessment & Plan Assessment & Plan (1) Frostbite of feet, bilateral: Code(s): T33.821A - Superficial frostbite of right foot, initial encounter; T33.822A - Superficial frostbite of left foot, initial encounter Qualifiers: Encounter type: sequela Qualified Code(s): T33.821S - Superficial frostbite of right foot, sequela; T33.822S - Superficial frostbite of left foot, sequela (2) History of transmetatarsal amputation of left foot: Onset Date: 09/20/22 Comment: left transmetatarsal amputation, right great toe amputation- Drew Greer MD Code(s): Z89.432 - Acquired absence of left foot Plan Patient returns with bilateral foot wounds well healed without evidence of infection. He does have persistent neuralgia involving both feet which is inhibiting his ability to ambulate. I recommended evaluation by Neurology. Patient is currently on gabapentin without significant improvement. Orders: Referrals Neurology Referral T33.821A - Superficial frostbite of right foot, initial encounter, T33.822A - Superficial frostbite of left foot, initial encounter, Z89.432 - Acquired absence of left foot Coding Level of Care Code Est Pt Level 3 (27751) Diagnoses Frostbite of both feet, sequela T33.821S; T33.822S Encounter type: sequela History of transmetatarsal amputation of left foot Z89.432
[2023-02-27 14:47] VITALS: BP 114/81; PULSE 104; BMI 26.4
== END 2023-02-27 14:53 | disposition home or self-care (01) ==
PROVIDERS: PCP Internal Medicine; Visit Provider Surgery
DX: T33.821S Superficial frostbite of right foot, sequela (principal); T33.822S Superficial frostbite of left foot, sequela; Z89.432 Acquired absence of left foot
CPT/HCPCS: 99213

== ENCOUNTER → 2023-02-27 14:29 | Outpatient (BNVA) | payer OTHER, SELFPAY | PROVIDERS: PCP Internal Medicine; Visit Provider Surgery | DX: G54.6 Phantom limb syndrome with pain (principal); T33.821D Superficial frostbite of right foot, subsequent encounter; T33.822D Superficial frostbite of left foot, subsequent encounter; Z89.432 Acquired absence of left foot | CPT/HCPCS: 99212 ==

== ENCOUNTER 2024-02-28 14:34 | Outpatient (AMB) | payer OTHER, SELFPAY ==
--- NOTE | 2024-02-28 14:35 | MHC.OFFVIS ---
Vital Signs 02/28/24 14:42 Height 5 ft 9 in Weight 214 lb BMI 31.6 BP 125/73 Blood Pressure Location Rt brachial Position Sitting Pulse 84 Intake Visit Reasons: Check toe/black, nail curling Intake Note: This patient presents for wound check. Pt c/o; wound check, reports he has blisters underneath his foot due to putting pressure on it when walking. 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 He has a history of transmetatarsal amputation on the left and amputation of the big toe on the right for frostbite last September,. He states that the 2nd toe on the right seems to be in some flexion permanently. He also says that the transmetatarsal amputation site on the left has some occasional blistering at the bottom. He denies any drainage. He denies being a diabetic. He says that he currently lives in a hotel because he his homeless. He said that he was out in the streets last year when he had the head bite. 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/20/22) Social History Household Members: None Housing: Homeless Do you presently have visiting nurse or other home services: No Alcohol intake: never Comment: patient refusing alarms and camera Patient Tobacco Use Status: Current everyday Tobacco user Tobacco use type: Cigarette Cigarette Packs Per Day: 0.5 Cigarettes Per Day: 5 Years Smoked: 20 e-Cigarette/Vaping Use: Never Used Second Hand Smoke Exposure: No Substance Use Type: Crack/Cocaine and Heroin Advance Directives Date on File: 09/27/22 service: No Current occupational status: unemployed Sexual orientation: Straight/Heterosexual Review of Systems Const Denies chills and Denies fever(s) Card Denies chest pain with activity Resp Denies cough GI Denies abdominal pain Denies difficulty urinating Physical Exam Const General: comfortable and no acute distress Resp Effort & Inspection: normal respiratory effort GI Palpation (GI): Soft to palpation Extrem Other: Transmetatarsal stump on the left is well healed, with some superficial dry blistering at the bottom on the sole likely from friction with his shoes The 2nd toe on the right seems to be permanently in some degree of flexion at the distal phalanx otherwise amputation site on the big toe is well healed Assessment & Plan Assessment & Plan (1) Blister of foot: Code(s): S90.829A - Blister (nonthermal), unspecified foot, initial encounter Category: Medical Plan: He has had this changes on the feet as described above. He describes this dry blistering on the bottom with the/foot. This is likely secondary to friction with movement of the foot in his shoes due to the transmetatarsal amputation. He also has this 2nd toe in flexion at the distal phalanx. I have sent him a handout for the orthotic and prosthetic in [place]. He may benefit from inserts on his shoes to prevent history ring I explained to him that the permanent flexion of the distal phalanx is like because of the loss of tendons after amputation of the adjacent big toe. He can otherwise follow up on a p.r.n. basis Coding Level of Care Code Est Pt Level 3 (47883) Diagnoses Blister of foot S90.829A
[2024-02-28 14:42] VITALS: BP 125/73; PULSE 84; BMI 31.6
== END 2024-02-28 14:52 | disposition home or self-care (01) ==
PROVIDERS: PCP Internal Medicine; Visit Provider Surgery
DX: S90.829A Blister (nonthermal), unspecified foot, initial encounter (principal)
CPT/HCPCS: 99213

== ENCOUNTER → 2024-02-28 14:34 | Outpatient (BNVA) | payer OTHER, SELFPAY | PROVIDERS: PCP Internal Medicine; Visit Provider Surgery | DX: S90.829A Blister (nonthermal), unspecified foot, initial encounter (principal); X31.XXXA Exposure to excessive natural cold, initial encounter; Y93.89 Activity, other specified; Y92.410 Unspecified street and highway as the place of occurrence of the external cause; Y99.9 Unspecified external cause status; Z59.02 Unsheltered homelessness; Z59.01 Sheltered homelessness | CPT/HCPCS: 99212 ==

== ENCOUNTER 2024-05-29 07:34 | Emergency (ER) | payer OTHER, SELFPAY ==
--- NOTE | ~2024-05-29 | CT_ITS ---
EXAMINATION: CT ABDOMEN AND PELVIS WITH CONTRAST CLINICAL INFORMATION: Diffuse abdominal pain COMPARISON: Prior CT abdomen 08/13/2022 TECHNIQUE: Multidetector volumetric images were obtained from the superior aspect of the liver through the pubic symphysis following administration 85 mL of Omnipaque 350 intravenous contrast. Sagittal and coronal reformatted images were obtained on the technologist's workstation. Oral contrast: No This CT examination was performed using dose optimization techniques as appropriate, variously including the following: *Automated exposure control *Adjustment of mA and/or kV according to patient size (this includes techniques or standardized protocols for targeted exams where dose is matched to indication/reason for exam; i.e. extremities or head) *Use of iterative reconstruction technique DLP: 833 mGy-cm FINDINGS: LUNG BASES: The visualized lung bases are unremarkable. LIVER, GALLBLADDER, AND BILIARY TREE: The liver is normal in size, shape, and attenuation. No focal hepatic lesion or biliary ductal dilatation is present. The gallbladder is unremarkable with no evidence of radiopaque gallstones, gallbladder wall thickening, or obvious pericholecystic inflammatory changes. PANCREAS: Unremarkable. SPLEEN: Unremarkable. ADRENAL GLANDS: Unremarkable. KIDNEYS AND URETERS: The kidneys are normal in size, shape, and attenuation. No hydronephrosis, hydroureter, or calculi seen. No perinephric stranding. BLADDER: Bladder is decompressed GASTROINTESTINAL TRACT: Moderate stool burden in the colon. No bowel obstruction or right or left lower quadrant inflammatory change. ABDOMINAL WALL: No significant hernia is appreciated. LYMPH NODES: Normal. VASCULAR: Unremarkable. PELVIC VISCERA: Unremarkable. OSSEOUS STRUCTURES: Degenerative change in the spine. No fracture or destructive process. CT/CT abdomen pelvis w IV con IMPRESSION: Unremarkable exam. A source of this patient's abdominal and pelvic pain is not discovered. Fleischner guidelines were followed. Electronically signed by: Dave Nathan MD 05/29/2024 02:30 PM RINA
[2024-05-29 07:39] VITALS: BP 152/70; PULSE 100; O2SAT 99
[2024-05-29 07:43] VITALS: BP 127/66; PULSE 94; RESP 18; TEMP 36.6; O2SAT 95; BMI 34.5
--- NOTE | 2024-05-29 07:47 | ECG_ITS ---
Test Reason : abdominal pain Blood Pressure : / mmHG Vent. Rate : 079 BPM Atrial Rate : 079 BPM P-R Int : 164 ms QRS Dur : 082 ms QT Int : 382 ms P-R-T Axes : 058 065 055 degrees QTc Int : 438 ms Normal sinus rhythm Normal ECG When compared with ECG of 03-NOV-2022 09:21, No significant change was found Referred By: Laureen Dye Electronically Signed By:ARIE LEVY
--- NOTE | 2024-05-29 07:50 | ED_ITS ---
HPI - Abdominal Pain General Chief Complaint: Abdominal Pain Stated Complaint: ABD PAIN PER EMS Time Seen by Provider: 05/29/24 07:36 History of Present Illness HPI narrative: Patient is a 54-year-old male with a history of having abdominal pain for the last few months. Getting worse. Throbbing diffuse. Not associated with any nausea vomiting diarrhea. No fever no chills. No chest pain or shortness of breath. Patient been having normal bowel movement. No abdominal surgery done in the past. Can not take the pain anymore and came to the ED. patient's admits to using marijuana. No alcohol no other recreational drugs. No coughing or congestion or upper respiratory symptoms. No chest pain. Stool was normal in color and consistency. Patient from home. Positive generalized malaise MD elicited complaint: abdominal pain Pain Consistency: constant Severity: mild Quality: cramping Radiation: none Migration to: no migration Exacerbating factors: nothing Relieving factors: nothing Related Data Home Medications ?Medication ?Instructions ?Recorded ?Confirmed bupropion HCl 300 mg 24 hr tablet, 300 mg PO DAILY 11/02/22 02/28/24 extended release clonazepam 1 mg tablet 1 mg PO BID PRN Anxiety 11/02/22 02/28/24 gabapentin 100 mg capsule 200 mg PO BEDTIME 11/02/22 02/28/24 hydroxyzine pamoate 50 mg capsule 50 mg PO BID PRN Anxiety 11/02/22 02/28/24 mirtazapine 30 mg tablet 30 mg PO BEDTIME 11/02/22 02/28/24 olanzapine 20 mg tablet 20 mg PO BEDTIME 11/02/22 02/28/24 sertraline 25 mg tablet 75 mg PO DAILY 11/02/22 02/28/24 trazodone 50 mg tablet 100 mg PO BEDTIME PRN Insomnia 11/02/22 02/28/24 Allergies Allergy/AdvReac Type Severity Reaction Status Date / Time No Known Allergies Allergy Verified 05/29/24 07:44 [No Known Allergies*] Review of Systems Review of Systems Positive abdominal pain Yes all other systems are reviewed and are negative PMFSH Past Medical History Attestation statement: The following information was validated with the patient. Medical History Blister of foot Non-pressure chronic ulcer of other part of left foot with fat layer exposed Rhabdomyolysis Frostbite of feet, bilateral Suicidal ideation Chronic post-traumatic stress disorder (PTSD) Opioid dependence on agonist therapy Mood disorder Anxiety Depression Surgical History History of transmetatarsal amputation of left foot (09/20/22) Social History Social History Household Members: None Housing: Homeless Do you presently have visiting nurse or other home services: No Alcohol intake: never Comment: patient refusing alarms and camera Patient Tobacco Use Status: Current everyday Tobacco user Tobacco use type: Cigarette Cigarette Packs Per Day: 0.5 Cigarettes Per Day: 5 Years Smoked: 20 Smoked in Last 30 Days: No e-Cigarette/Vaping Use: Never Used Second Hand Smoke Exposure: No Use of substances other than those prescribed or required for medical reasons: No Substance Use Type: Crack/Cocaine and Heroin Advance Directives: Yes Advance Directives on File: Yes Advance Directives Date on File: 09/27/22 service: No Current occupational status: unemployed Sexual orientation: Straight/Heterosexual Physical Exam ED Vital Signs: Vital Signs - 24 hr 05/29/24 07:43 05/29/24 10:15 05/29/24 12:38 Temperature 97.9 F Pulse Rate 94 63 70 Respiratory Rate 18 18 12 Blood Pressure 127/66 110/66 113/68 Pulse Oximetry 95 96 98 Oxygen Delivery Method Room Air Room Air Room Air BMI result Body Mass Index 34.5 Appearance: Alert. Oriented X3. No acute distress. Eyes: Pupils equal, round and reactive to light. ENT: Pharynx normal. Neck: Normal inspection. Neck supple. No lymph nodes noted. No crepitus CVS: Normal heart rate and rhythm. Pulses normal. Normal S1 and S2 Respiratory: No respiratory distress. Breath sounds normal. No Wheezing. No rales Abdomen: Soft and nontender. No rigidity. No distention. good BS x4 Skin: Skin warm and dry. Normal skin color. Normal skin turgor. Extremities: No lower extremity edema. Neurovascular intact to all extremities. No Lacerations. No Rash Neuro: Oriented X 3. No motor deficit. No sensory deficit. Moving all extermities. No slurred speech Medical Decision Making Medical Decision Making MDM Narrative: CT scan of the abdomen was done. Grossly negative for any acute evidence of obstruction abscess perforation. Patient well-appearing. White count is normal hemoglobin is 13.5 no evidence for anemia. Patient's LFTs are normal lipase normal no evidence of biliary disease. No evidence for pancreatic disease. Patient's creatinine slightly elevated consistent with previous kidney issues patient's TSH is normal no evidence for hypo or hyperthyroid urine showed no signs of infection. Will discharge patient home. Close follow-up on an outpatient basis. Differential Diagnosis Differential Diagnoses: The differential diagnosis associated with the presentation includes Obstruction, abscess, perforation Admission/Observation Consideration of admission/observation: Escalation of care including admission/observation considered Lab Data MDM Lab Attestation statement: I reviewed the patient's lab results. 05/29/24 07:54 05/29/24 07:54 Labs: Lab Results 05/29/24 05/29/24 05/29/24 Range/Units 07:54 08:07 08:27 WBC 7.0 (4.8-10.8) X10*3/uL RBC 4.76 D (4.60-5.80) X10*6/uL Hgb 13.5 L D (14.0-18.0) g/dl Hct 39.9 L (42.0-52.0) % MCV 83.8 (80.0-98.0) fL MCH 28.4 (27.0-33.0) pg MCHC 33.8 (31.0-36.0) g/dl RDW 15.7 (11.0-16.0) % Plt Count 246 D (160-400) X10*3/uL MPV 8.9 L (9.4-12.4) fL Immature Gran % (Auto) 0.3 (0.0-0.4) % Neut % (Auto) 55.3 (45-73) % Lymph % (Auto) 32.3 (20-40) % Independence % (Auto) 10.2 (2-11) % Eos % (Auto) 1.3 (0-4) % Baso % (Auto) 0.6 (0-2) % Lymph # (Auto) 2.3 (1.2-4.9) X10*3/uL Independence # (Auto) 0.7 (0.1-1.2) X10*3/uL Eos # (Auto) 0.1 (0.0-0.4) X10*3/uL Baso # (Auto) 0.0 (0.0-0.2) X10*3/uL Abs Immat Gran (auto) 0.02 (0.00-0.03) X10*3/uL Absolute Neuts (auto) 3.9 (2.0-8.3) x10*3/uL Absolute Nucleated RBC 0.000 (0.0-0.012) X10*3/uL Nucleated RBC % (auto) 0.0 (0.0-0.2) /100WBC Sodium 141 (135-145) mmol/L Potassium 4.2 (3.3-5.1) mmol/L Chloride 109 H (96-108) mmol/L Carbon Dioxide 23 (22-29) mmol/L Anion Gap 13 (12-20) BUN 16 (9-16) mg/dL Creatinine 1.58 H (0.5-1.4) mg/dL Estim Creat Clear Calc 64.1 Estimated GFR 46 Random Glucose 161 H (60-115) mg/dL Calcium 8.6 D (8.4-10.2) mg/dL Total Bilirubin 0.2 (0.0-1.0) mg/dL Direct Bilirubin < 0.2 (0.0-0.5) mg/dL AST 21 (5-37) U/L ALT 23 (0-40) U/L Alkaline Phosphatase 53 (39-117) U/L Total Protein 7.1 (6.5-8.0) g/dL Albumin 4.1 (3.5-5.0) g/dL Lipase 27 (8-78) U/L TSH 0.58 (0.32-4.0) uIU/mL Urine Color Yellow Urine Appearance Clear Urine pH 6.0 (5.0-9.0) Ur Specific Calvin 1.020 (1.005-1.025) Urine Protein Negative (Neg-Trace) mg/dL Urine Glucose (UA) Negative (Negative) mg/dL Urine Ketones Negative (Negative) mg/dL Urine Blood Negative (Negative) Urine Nitrite Negative (Negative) Ur Leukocyte Esterase Negative (Negative) Urine RBC 0-2 (0-2) /HPF Urine WBC 0-5 (0-5) /HPF Ur Squamous Epith Cells 0-2 (0-2) /HPF Urine Bacteria None Seen (None Seen) Hyaline Casts 0-2 (0-2) /LPF Urine Opiates Screen Not Detected (Not Detect) Ur Buprenorphine Scrn Not Detected (Not Detect) ng/mL Ur Oxycodone Screen Not Detected (Not Detect) ng/mL Urine Methadone Screen Not Detected (Not Detect) ng/mL Urine Fentanyl Screen Not Detected (Not Detect) Ur Barbiturates Screen Not Detected (Not Detect) Ur Phencyclidine Scrn Not Detected (Not Detect) Ur Amphetamines Screen Not Detected (Not Detect) U Benzodiazepines Scrn POSITIVE H (Not Detect) Urine Cocaine Screen Not Detected (Not Detect) U Marijuana (THC) Screen POSITIVE H (Not Detect) Independent Interpretation I performed an independent interpretation of an: CT Scan (CTA abdomen grossly negative) Radiology Impression Discussion of test interpretation with radiology: I have reviewed the radiologist's reading. Social Determinants Patient?s care significantly limited by Social Determinants of Health including: Inadequate housing and Unemployment Medications Administered Discontinued Medications Generic Name Dose Route Start Last Admin Trade Name Freq PRN Reason Stop Dose Admin Clonazepam 0.5 mg 05/29/24 12:56 05/29/24 13:10 Clonazepam 0.5 Mg Tablet PO 05/29/24 12:57 0.5 mg ONCE ONE Administration Sodium Chloride 500 mls @ 999 mls/hr 05/29/24 08:00 05/29/24 08:46 Ns IV 05/29/24 08:30 Infused .Q31M IRVING Infusion Iohexol 100 ml 05/29/24 09:40 05/29/24 09:40 Iohexol 350 Mg/Ml 100 Ml Infus..Btl IV 05/29/24 09:41 85 ml ONCE ONE Administration Discharge Plan Discharge Clinical Impression: Abdominal pain Patient Disposition: Home, Self-Care Instructions: Abdominal Pain (ED) Prescriptions: No Action trazodone 50 mg tablet 100 mg PO BEDTIME PRN (Reason: Insomnia) clonazepam 1 mg tablet 1 mg PO BID PRN (Reason: Anxiety) hydroxyzine pamoate 50 mg capsule 50 mg PO BID PRN (Reason: Anxiety) mirtazapine 30 mg tablet 30 mg PO BEDTIME sertraline 25 mg tablet 75 mg PO DAILY gabapentin 100 mg capsule 200 mg PO BEDTIME olanzapine 20 mg tablet 20 mg PO BEDTIME bupropion HCl 300 mg tablet extended release 24 hr 300 mg PO DAILY Referrals: Flex Rascon MD [Primary Care Provider] - 06/02/24 Print Language: Armenian
[2024-05-29 07:59] LABS: MANUAL DIFF FLAG NO
[2024-05-29 08:00] LABS: Basophils Percent Auto 0.6 % (0-2); Eosinophils Absolute Auto 0.1 X10*3/uL (0.0-0.4); Eosinophils Percent Auto 1.3 % (0-4); Hematocrit 39.9 % (42.0-52.0); Hemoglobin 13.5 g/dl (14.0-18.0); Imm Gran Abs Auto 0.02 X10*3/uL (0.00-0.03); Imm Gran Pct Auto 0.3 % (0.0-0.4); Lymphocytes Absolute Auto 2.3 X10*3/uL (1.2-4.9); Lymphocytes Percent Auto 32.3 % (20-40); Mean Corpuscular HGB Conc 33.8 g/dl (31.0-36.0); Mean Corpuscular Hemoglobin 28.4 pg (27.0-33.0); Mean Corpuscular Volume 83.8 fL (80.0-98.0); Mean Platelet Volume 8.9 fL (9.4-12.4); Monocytes Absolute Auto 0.7 X10*3/uL (0.1-1.2); Monocytes Percent Auto 10.2 % (2-11); Neutrophils Absolute Auto 3.9 x10*3/uL (2.0-8.3); Neutrophils Percent Auto 55.3 % (45-73); Platelet Count 246 X10*3/uL (160-400); Red Blood Count 4.76 X10*6/uL (4.60-5.80); Red Cell Distribution Width 15.7 % (11.0-16.0)
[2024-05-29] MEDS: 0.9 % Sodium Chloride 500 ML 999 ML IV (08:00)
--- NOTE | 2024-05-29 08:11 | PC.NURSE ---
Pt presents to ED via EMS from [facility], reports abdominal pain in periumbilical region and upper quadrants X few months . Worsening, throbbing, 11/18. Denies N/V/D, fevers. Does report poor appetite and fatigue. Alert and oriented, breathing even and unlabored. Skin warm and dry. ABD soft.
[2024-05-29 08:27] LABS: Alanine Aminotransferase 23 U/L (0-40); Albumin Level 4.1 g/dL (3.5-5.0); Alkaline Phosphatase 53 U/L (39-117); Anion Gap 13 (12-20); Aspartate Amino Transferase 21 U/L (5-37); Bilirubin Direct < 0.2 mg/dL (0.0-0.5); Bilirubin Total 0.2 mg/dL (0.0-1.0); Blood Urea Nitrogen 16 mg/dL (9-16); Calcium 8.6 mg/dL (8.4-10.2); Carbon Dioxide 23 mmol/L (22-29); Chloride 109 mmol/L (96-108); Creatinine Clr Calc Pharmacy 64.1; Estimated Glomerular Filt Rate 46; Glucose Random 161 mg/dL (60-115); Lipase 27 U/L (8-78); Potassium 4.2 mmol/L (3.3-5.1); Sodium 141 mmol/L (135-145); Total Protein 7.1 g/dL (6.5-8.0)
[2024-05-29 08:37] LABS: Appearance Urine Clear; Color Urine Yellow; Glucose Urine UA Negative (Negative); Leukocyte Esterase Urine Negative (Negative); Nitrite Urine Negative (Negative); Urine Blood Negative (Negative); Urine Ketones Negative (Negative); Urine Protein Negative (Neg-Trace)
[2024-05-29 08:39] LABS: Bacteria Urine None Seen (None Seen); Hyaline Casts Urine 0-2 /LPF (0-2); RBC Urine 0-2 /HPF (0-2); Squamous Epithelial Cell Urine 0-2 /HPF (0-2); WBC Urine 0-5 /HPF (0-5)
[2024-05-29 08:44] LABS: Amphetamine Screen Urine Not Detected (Not Detect); Barbiturates, Urine Not Detected (Not Detect); Benzodiazepines Screen Urine POSITIVE (Not Detect); Buprenorphine Scr Not Detected (Not Detect); Cannabinoid Screen Urine POSITIVE (Not Detect); Cocaine Screen Urine Not Detected (Not Detect); Fentanyl, urine Not Detected (Not Detect); Methadone Screen, Urine Not Detected (Not Detect); Opiate Screen Urine Not Detected (Not Detect); Oxycodone Screen Urine Not Detected (Not Detect); Phencyclidine Screen Urine Not Detected (Not Detect)
[2024-05-29 08:47] LABS: TSH reflex Free T4 0.58 uIU/mL (0.32-4.0)
[2024-05-29] MEDS: iohexoL 350 MG/ML 100 ML INFUS..BTL IV (09:40)
[2024-05-29 10:15] VITALS: BP 110/66; PULSE 63; RESP 18; O2SAT 96
[2024-05-29 12:38] VITALS: BP 113/68; PULSE 70; RESP 12; O2SAT 98
[2024-05-29] MEDS: clonazePAM 0.5 MG TABLET PO (13:10)
[2024-05-29 14:56] VITALS: BP 113/68; PULSE 70; RESP 12; TEMP 36.6; O2SAT 98
== END 2024-05-29 14:56 | disposition home or self-care (01) ==
PROVIDERS: Emergency Provider Emergency Medicine Emergency Medical Services; PCP Internal Medicine
DX: R10.9 Unspecified abdominal pain (principal); F12.90 Cannabis use, unspecified, uncomplicated; Z79.899 Other long term (current) drug therapy
CPT/HCPCS: 36415; 74177; 80048; 80076; 80307; 81001; 82248; 83690; 84443; 85025; 93005; 96360; 99284; 99285; Q9967

== ENCOUNTER → 2024-05-29 07:47 | Outpatient (BNV) | payer OTHER, SELFPAY | PROVIDERS: Emergency Provider Emergency Medicine Emergency Medical Services; PCP Internal Medicine; Visit Provider Internal Medicine | DX: R10.9 Unspecified abdominal pain (principal) | CPT/HCPCS: 93010 ==

== ENCOUNTER 2025-01-26 10:31 | Outpatient (AMB) | payer OTHER, SELFPAY ==
--- NOTE | 2025-01-26 10:33 | MHC.OFFVIS ---
Vital Signs 01/26/25 10:33 Height 5 ft 9 in Intake Visit Reasons: 6 month Allergies No Known Allergies (No Known Allergies*) Allergy (Verified 01/26/25 10:36) Medication List - Last Reconciled 01/26/25 by Nancy Shultz CNP bupropion HCl XL 300 mg PO DAILY clonazepam 1 mg PO BID PRN gabapentin 400 mg PO TID hydroxyzine pamoate 50 mg PO BID PRN mirtazapine 30 mg PO BEDTIME olanzapine 20 mg PO BEDTIME sertraline 75 mg PO DAILY trazodone 100 mg PO BEDTIME PRN HPI Comments Details: 54-year-old man with neuropathic pain in feet. He was doing okay. Pain was generally controlled with gabapentin, occasionally had some throbbing-type pain in feet. He slipped in shower, but no other falls. Sleep was not bad. Mood was okay. [facility] Medical History Blister of foot Non-pressure chronic ulcer of other part of left foot with fat layer exposed Rhabdomyolysis Frostbite of feet, bilateral Suicidal ideation Chronic post-traumatic stress disorder (PTSD) Opioid dependence on agonist therapy Mood disorder Anxiety Depression Surgical History History of transmetatarsal amputation of left foot (09/20/22) Social History Household Members: None Housing: Homeless Do you presently have visiting nurse or other home services: No Alcohol intake: never Comment: patient refusing alarms and camera Patient Tobacco Use Status: Current everyday Tobacco user Tobacco use type: Cigarette Cigarette Packs Per Day: 0.5 Cigarettes Per Day: 5 Years Smoked: 20 e-Cigarette/Vaping Use: Never Used Second Hand Smoke Exposure: No Substance Use Type: Crack/Cocaine and Heroin Advance Directives Date on File: 09/27/22 service: No Current occupational status: unemployed Sexual orientation: Straight/Heterosexual Review of Systems Const Denies chills, Denies daytime sleepiness, Denies difficulty sleeping, Denies fatigue, Denies fever(s), Denies frequent falls, Denies headache(s), Denies increased appetite, Denies poor appetite, Denies snoring, Denies weakness, Denies weight gain and Denies weight loss Eyes Denies loss of vision ENT Denies vertigo, Denies dizziness and Denies headache(s) Card Denies chest pain at rest, Denies chest pain with activity, Denies syncope, Denies leg edema and Denies palpitations Resp Denies snoring GI Denies constipation, Denies heartburn, Denies diarrhea and Denies nausea Denies urinary frequency, Denies urinary incontinence and Denies urinary urgency Musc Denies abnormal gait, Reports numbness and Reports tingling Skin/Breast Denies dry skin and Denies rash Neuro Denies abnormal gait, Denies vertigo, Denies dizziness, Denies syncope, Denies frequent falls, Denies headache(s), Denies lack of coordination, Denies loss of vision, Denies memory loss, Reports numbness, Denies restless legs, Denies seizure-like activity, Reports tingling, Denies paresthesias, Denies tremor(s), Denies weakness and Reports other (balance difficulty) Psych Denies anxiety, Denies depression, Denies auditory hallucinations, Denies memory loss, Denies visual hallucinations and Denies suicidal ideation Endo Denies fatigue and Denies palpitations Physical Exam Const Other: General Appearance:? normal, in no acute distress. Skin:? no rashes, no significant birthmarks. Heart:? S1, S2 normal, no murmurs. Lungs:? clear anteriorly and posteriorly. Extremities:? no edema. Psych:? alert, oriented, cognitive function intact, cooperative with exam. Neuro Other: Mental Status:?Normal attention, orientation, memory and affect.? Cranial Nerves:?Pupils are equal, round and reactive to light. External occular muscles are intact. Visual griffith are full. Face is symmetrical. Facial sensations are normal. Tongue is midline. Palate elevates symmetrically. Shoulder shrugging is normal. Hearing to bedside conversation is normal. Motor Examination:?DTRs trace. Sensory Exam:?....? Coordination:?No ataxia,?no titubation.? Gait Exam: Within normal limits. Cerebellar Signs:?[id number] is okay. Extrapyramidal System:?No tremor, rigidity with normal facial expressions.? Pronator Drift:?Not present.? Involuntary Movements:?No tremors seen.? Speech:?Normal.? 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 Assessment & Plan Assessment & Plan (1) Neuropathic pain: Code(s): M79.2 - Neuralgia and neuritis, unspecified Category: Medical Plan: Continue gabapentin 400mg 1 capsule three times a day. (2) Peripheral neuropathy: Code(s): G62.9 - Polyneuropathy, unspecified Category: Medical Qualifiers: Peripheral neuropathy type: polyneuropathy, unspecified Qualified Code(s): G62.9 - Polyneuropathy, unspecified Plan . Coding Level of Care Code Est Pt Level 3 (07256) Diagnoses Neuropathic pain M79.2 Peripheral polyneuropathy G62.9 Peripheral neuropathy type: polyneuropathy, unspecified
--- OUTSIDE RECORDS SUMMARY | 2025-01-26 11:32 | XMS_ITS | Encounter Summary ---
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 Name Role Phone Unavailable Primary Care Provider Unavailabl e Encounter Details Date Type Department Care Team (Latest Contact Info) Description 08/06/2019 Abstract [facility] CONVERSIONS Dental, Provider, DDS Social History Tobacco Use Types Packs/Day Years Used Date Smoking Tobacco: Never Assessed Sex and Gender Information Value Date Recorded Sex Assigned at Male 04/10/2022 10:31 AM EDT Legal Sex Male 10:31 AM EDT Gender Identity Male 04/10/2022 10:31 AM EDT Sexual Orientation Straight 04/10/2022 10 :31 AM EDT documented as of this encounter Plan of Treatment Not on file documented as of this encounter Visit Diagnoses Not on filedocumented in this encounter
--- OUTSIDE RECORDS SUMMARY | 2025-01-26 11:32 | XMS_ITS | Clinical Summary ---
Author Organization [facility] Address [address] [address] Phone Care Team Providers Care Lens Block Gauger Name Role Phone Flex Rascon Primary Care Provider [phone] Allergies No known active allergies Medications buPROPion SR (WELLBUTRIN SR) 150 MG 12 hr tablet 08/09/2022 Active sertraline (ZOLOFT) 100 MG tablet 08/11/2022 Active clonazePAM (KlonoPIN) 1 MG tablet 08/21/2022 Active mirtazapine (REMERON) 30 MG tablet 08/11/2022 Active OLANZapine (ZyPREXA) 20 MG tablet 08/09/2022 Active hydrOXYzine (ATARAX) 50 MG tablet 12/24/2023 Active gabapentin (NEURONTIN) 100 MG capsule Take 100 mg by mouth 12/01/2022 Active ferrous sulfate 325 (65 Fe) MG EC tablet 11/05/2023 Active Active Problems Problem Noted Date Diagnosed Date Chronic kidney disease, stage 2 (mild) Anemia, not otherwise specified 01/28/2024 Constipation 01/14/2024 Hyperlipidemia 01/14/2024 Liver enzymes level above reference range 2023 Other iron deficiency anemia 01/14/2024 Leukocytosis 01/14/2024 Benign prostatic hyperplasia 01/14/2024 Seizure 01/14/2024 Cocaine use disorder, mild 01/14/2024 Posttraumatic stress disorder 01/14/2024 Mixed anxiety and depressive disorder 01/14/2024 Polysubstance abuse 01/14/2024 Acute nontraumatic kidney injury 10/04/2022 Resolved Problems Problem Noted Date Diagnosed Date Resolved Date Akinesia 10/04/2022 10/04/2022 Social History Tobacco Use Types Packs/Day Years Used Date Smoking Tobacco: Every Day Cigarettes Smokeless Tobacco: Never Tobacco Cessation:Ready to Q uit: Not Asked; Counseling Given: Not Answered Alcohol Use Standard Drinks/Week Comments Never 0 (1 standard drink = 0.6 oz pur e alcohol) Sex and Gender Information Value Date Recorded Sex Assigned at Not on file Legal Sex Male 9:09 AM EDT Gender Identity Not on file Sexual Orientation Not on file Last Filed Vital Signs Vital Sign Reading Time Taken Comments Blood Pressure 110/64 07/31/2024 1:50 PM EST Pulse 60 07/31/2024 1:50 PM EST Temperature - - Respiratory Rate - - Oxygen Saturation - - Inhaled Oxygen Concentration - - Weight 108 kg (239 lb) 07/31/2024 1:50 PM EST Height - - Body Mass Index - - Plan of Treatment Upcoming Encounters Date Type Department Care Team (Late st Contact Info) Description 07/29/2025 1:45 PM EST Office Visit [facility] [address] [address] Jose Alfredo Perrin MD [address] [address] Health Maintenance Due Date Last Done Comments Hepatitis B Vaccine (1 of 3 - 19+ 3-dose series) 1989 Pneumococcal Vaccine: 50+ Ye ars (1 of 2 - PCV) 1989 Colorectal Cancer Screening: Annual FOBT 2019 Colorectal Cancer Screening: Colonoscopy 2019 Colorectal Cancer Screening: Sigmoidoscopy 2019 Influenza Vaccine (#1) 2025 05/15/2018, 2013 Insurance [facility] [place] [address] [employer] Care Teams Lens Block Gauger Relationship Specialty Start Date End Date Flex Rascon PCP - General 08/23/23
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
--- OUTSIDE RECORDS SUMMARY | 2025-01-26 11:32 | XMS_ITS ---
Author Name [facility] Organization Unknown Care Team Organization Name Specialty Phone Email Start Date End Da te [facility] LEESA BUENROSTRO Primary Care [email or web address] 10/16/2022 01/28/2024 [facility] Nai Parsons Primary Care 04/18/2022
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
== END 2025-01-26 10:50 | disposition home or self-care (01) ==
LOC: HO.HSM 10:31
PROVIDERS: PCP Internal Medicine; Referring Provider Surgery; Visit Provider Registered Nurse
DX: M79.2 Neuralgia and neuritis, unspecified (principal); G62.9 Polyneuropathy, unspecified
CPT/HCPCS: 99213

== ENCOUNTER → 2025-01-26 10:31 | Outpatient (BNVA) | payer OTHER, SELFPAY | PROVIDERS: PCP Internal Medicine; Referring Provider Surgery; Visit Provider Registered Nurse | DX: M79.2 Neuralgia and neuritis, unspecified (principal); Z79.899 Other long term (current) drug therapy | CPT/HCPCS: 99212 ==